=== PATIENT | female | born 1935 | race Caucasian/White ===

== ENCOUNTER 2016-08-09 20:04 | Inpatient (IN) | payer MEDICARE, MEDICAID ==
[~2016-08-09] VITALS: Ht 167.6 cm; Wt 80.3 kg
[~2016-08-09 20:04] MED LIST: ACET-168 PO; ACET650S15 PR; ALPR.25T PO; ALPR0.25 PO; ALPR0.254 PO; AMIO200T2 PO; AMLO10TA4 PO; APIX5TAB2 PO; ASP81CT PO; ASPI-587 PO; ASPI-892 PO; B 12; B12 IM; BISA5TAB8 PO; BUME0.5T3 PO; BYSTOLIC; CARB10DR OP; CARB10DR OU; CARV6.252 PO; CETI5TAB6 PO; CIPR500T78 PO; CLID1CAP12; CLN.1T; CNC1KV INJ; CYAN100053 IJ; D50KC; DCS100C PO; DILT120C53 PO; DIPH25TA82 PO; DLT120CCR PO; ENAL10TA PO; ENAL10TA75 PO; ENLP10T PO; ENLP5T PO; EYEL1KIT TP; FAMO1TAB21 PO; FEXO-104 PO; FEXO180T84 PO; FEXO60CA19; FEXO60TA PO; FLT05NA16 NSEACH; FLUT16SP22 NS; FURO20TA4 PO; HYDR-3583 PO; IRB150T; IRBE300T18 PO; IRBE300T9 PO; LATA2.5D5 OU; LBT200T; LEVO500T69 PO; LEVO50TA6 PO; LEVO75TA57 PO; LORA10CA PO; LVT.05T; LVT.05T PO; MAG30ORA2 PO; MAG355OR23 PO; MAGN-47 PO; MECL25TA56 PO; METO-270 PO; MNTL10T PO; NAPR220T76; NF-TYLARTH PO; OMEP20CA12 PO; OMEP40CA36 PO; ONDA-42 SL; ONDAN4ODT PO; PANT20TA PO; PANT40TA PO; PANT40TA3 PO; POLY17PO23 PO; POTA10TA14 PO; POTA10TA36 PO; PRD20T PO; PSYL1CAP3 PO; RIVA20TA PO; SCR1T1 PO; SIME125T9 PO; SIME80TA57 PO; SIME80TA6 PO; SODI104S3 NS; SUCR1TAB PO; SUCR1TAB23 PO; THM100T; VITAMIN B12; VITAMIN D; [UNRECOGNIZED DRUG - CODE] OD
[2016-08-09 20:28] LABS: BASOPHILS # (AUTO) 0.1 10^3/uL (0.0-0.1); BASOPHILS % (AUTO) 1 % (0-10); EOSINOPHILS # (AUTO) 0.3 10^3/uL (0.0-0.3); EOSINOPHILS % (AUTO) 5 % (0-10); LYMPHOCYTES # (AUTO) 1.5 X 10^3 (1.0-4.0); LYMPHOCYTES % (AUTO) 26 % (12-44); MEAN CORPUSCULAR HEMOGLOBIN 26 PG (25-34); MEAN CORPUSCULAR HGB CONC 33 G/DL (32-36); MEAN CORPUSCULAR VOLUME 79 FL (80-99); MONOCYTES # (AUTO) 0.5 X 10^3 (0.0-1.0); MONOCYTES % (AUTO) 9 % (0-12); NEUTROPHILS # (AUTO) 3.3 X 10^3 (1.8-7.8); NEUTROPHILS % (AUTO) 58 % (42-75); PLATELET COUNT 302 10^3/uL (130-400); RED BLOOD COUNT 5.05 10^6/uL (4.35-5.85); RED CELL DISTRIBUTION WIDTH 16.3 % (10.0-14.5); WHITE BLOOD COUNT 5.8 10^3/uL (4.3-11.0)
[2016-08-09 20:37] LABS: INR 3.9 (0.8-1.4); PROTHROMBIN TIME PATIENT 38.5 SEC (12.2-14.7)
[2016-08-09 20:46] LABS: ALBUMIN 4.2 G/DL (3.2-4.5); BILIRUBIN,TOTAL 0.6 MG/DL (0.1-1.0); CALCIUM 9.5 MG/DL (8.5-10.1); CREATININE SERUM 0.99 MG/DL (0.60-1.30); POTASSIUM 4.2 MMOL/L (3.6-5.0); TOTAL PROTEIN 7.8 G/DL (6.4-8.2)
[2016-08-09] MEDS ORDERED: NS IV 1000 ML 1,000 ML IV ONE (20:46)
--- NOTE | 2016-08-09 20:46 | ED GI ---
General Chief Complaint: Rect Problems Stated Complaint: RECTAL BLEEDING POSS DUE TO MEDS Nursing Triage Note: PT STATES HAS HAD RECTAL BLEEDING FOR APPROX 2 DAYS, DARK STOOLS YESTERDAY NORMAL TODAY AND RAJINDER BLEEDING TONIGHT Sepsis Screen: No Definite Risk Source of Information: Patient Exam Limitations: No Limitations History of Present Illness Time Seen By Provider: 20:28 Initial Comments 81-year-old female patient presents to the emergency department with complaints of generalized abdominal cramping with rectal bleeding over the last 2 days. Patient states she had coffee-ground stools earlier today followed by bright red blood per rectum. Patient does have a history of a GI bleed secondary to gastric ulcers. Patient is currently on Xarelto. Timing/Duration: 1-2 Days, Getting Worse (worse today), Intermittent Severity/Quality: Cramping Location: Generalized Abdomen Radiation: No Radiation Activities at Onset: None Modifying Factors: Worsens With Defecating, Worsens With Eating, Worsens With Palpation Allergies and Home Medications Allergies Coded Allergies: Penicillins (Verified Allergy, Unknown, 07/26/07) Shellfish (Verified Allergy, Unknown, 07/26/07) Sulfa (Sulfonamide Antibiotics) (Verified Allergy, Unknown, 07/26/07) azithromycin (Unverified Allergy, Unknown, ITCHING, 08/05/13) cephalexin (Verified Allergy, Unknown, 07/26/07) erythromycin base (Verified Allergy, Unknown, 07/26/07) furosemide (Verified Allergy, Unknown, 07/26/07) nitrofurantoin (Unverified Allergy, Unknown, ITCHING/"THICK TONGUE", ) tetracycline (Verified Allergy, Unknown, 07/26/07) Uncoded Allergies: TAPE (Allergy, Unknown, 07/26/07) Home Medications Acetaminophen 500 Mg Tablet, 500 MG PO BID PRN for PAIN, (Reported) Alprazolam 0.25 Mg Tablet, 0.25 MG PO TID PRN for ANXIETY, (Reported) Amiodarone HCl 200 Mg Tablet, 200 MG PO BID, #60 Prescribed by: MINDI LEE on 02/15/16 0839 Cyanocobalamin 1,000 Mcg/Ml Inj, 1,000 MCG INJ MONTHLY, (Reported) OF EACH MONTH Famotidine/Ca Carb/Mag Hydrox 1 Each Tab.chew, 1 TAB.CHEW PO DAILY PRN for HEARTBURN, (Reported) Fexofenadine Hcl 180 Mg Tablet, 180 MG PO DAILY, (Reported) Irbesartan 300 Mg Tablet, 300 MG PO DAILY, (Reported) Latanoprost 2.5 Ml Drops, 1 DROP OU HS, (Reported) Levothyroxine Sodium 50 Mcg Tablet, 50 MCG PO DAILY, (Reported) Mag Hydrox/Al Hydrox/Simeth 30 Ml Oral.susp, 1 TBS PO BID PRN for INDIGESTION, ( Reported) Metoprolol Succinate 25 Mg Tab.er.24h, 25 MG PO DAILY, #30 Prescribed by: MINDI LEE on 02/15/16 0839 Pantoprazole Sodium 40 Mg Tablet.dr, 40 MG PO DAILY PRN for HEARTBURN, (Reported ) Potassium Chloride 10 Meq Tab.er.prt, 10 MEQ PO DAILY, (Reported) Rivaroxaban 20 Mg Tablet, 20 MG PO DAILY@1700, #30 Prescribed by: MINDI LEE on 02/15/16 0839 Simethicone 80 Mg Tab.chew, 80 MG PO Q12H PRN for GAS, (Reported) Sodium Chloride 104 Ml [place], 1 SPRAY NS DAILY PRN for CONGESTION, (Reported) Review of Systems Constitutional: No chills, No diaphoresis, No dizziness, No fever, No malaise, No weakness EENTM: No Symptoms Reported Respiratory: No Symptoms Reported Cardiovascular: No Symptoms Reported Gastrointestinal: See HPI, Denies Abdomen Distended, Abdominal Pain, Blood Streaked Stools, Denies Constipated, Denies Diarrhea, Nausea, Poor Appetite, Denies Poor Fluid Intake, Rectal Bleeding, Denies Vomiting Genitourinary: No Symptoms Reported Musculoskeletal: no symptoms reported Skin: no symptoms reported Psychiatric/Neurological: No Symptoms Reported Hematologic/Lymphatic: See HPI, Other (history of upper GI bleed) All Other Systems Reviewed Negative Unless Noted: Yes (Negative excepted noted.) Past Jjijypm-Qwxpyi-Xyzqab Hx Patient Social History Alcohol Use: Denies Use Recreational Drug Use: No Smoking Status: Never a Smoker Recent Foreign Travel: No Contact w/Someone Who Travel: No Recent Infectious Disease Expo: No Recent Hopitalizations: No Immunizations Up To Date Tetanus Booster (TDap): Less than 5yrs PED Vaccines UTD: No Date of Pneumonia Vaccine: October 03, 2010 Date of Influenza Vaccine: Feb 08, 2012 Seasonal Allergies Seasonal Allergies: Yes Surgeries HX Surgeries: Yes Surgeries: Abdominal, Appendectomy, Gallbladder, Hysterectomy, Rectal, Thyroidectomy, Tonsillectomy Respiratory Hx Respiratory Disorders: No Cardiovascular Hx Cardiac Disorders: Yes (PVC'S, ENLARGED HEART) Cardiac Disorders: Atrial Fibrillation, Cardiomyopathy, Chronic Edema/Swelling , Coronary Artery Disease, Hypertension Neurological Hx Neurological Disorders: No 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 System Hx 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 Genitourinary Hx Genitourinary Disorders: Yes (DOUBLE COLLECTING SYSTEM) Genitourinary Disorders: UTI-Chronic Gastrointestinal Hx Gastrointestinal Disorders: Yes Gastrointestinal Disorders: Gastroesophageal Reflux, Gastrointestinal Bleed, Esophagitis, Ulcer Musculoskeletal Hx Musculoskeletal Disorders: Yes (OSTEOARTHRITIS, FX RIGHT LOWER LEG, DISLOCATED RIGHT SHOULDER) Musculoskeletal Disorders: Osteoporosis, Arthritis, Fractures Endocrine Hx Endocrine Disorders: Yes (THYROIDECTOMY; "PREDIABETIC" PER PT ON 02/13/16 -- NO MEDICATIONS) Endocrine Disorders: Hypothyroidsim, Diabetes, Non-Insulin dep HEENT HX ENT Disorders: Yes HEENT Disorders: Glaucoma Hearing Impairment: Hard of Hearing Cancer Hx Cancer: No Psychosocial Hx Psychiatric Problems: Yes Behavioral Health Disorders: Anxiety, Depression Integumentary HX Skin/Integumentary Disorder: No Blood Transfusions Hx Blood Disorders: Yes (ANEMIA) Adverse Reaction to a Blood Tr: No Reviewed Nursing Assessment Reviewed/Agree w Nursing PMH: Yes Family Medical History Significant Family History: No Pertinent Family Hx Family Medial History: Family history: Hypertension 03 FATHER, Onset:40's - 50 09 BROTHER, Onset:40's - 50 History of drug abuse 03 FATHER, Onset:20's - 25 Stroke 03 FATHER, Onset:60 years & older Physical Exam Vital Signs VS - Last 72 Hours, by Label 08/09/16 20:10 Temp 98.6 Pulse 73 Resp 18 B/P (MAP) 165/91 Pulse Ox 98 Capillary Refill : Less Than 3 Seconds General Appearance: WD/WN, no apparent distress HEENT: PERRL/EOMI, pharynx normal Neck: supple, normal inspection Respiratory: lungs clear, normal breath sounds, no respiratory distress Cardiovascular: normal peripheral pulses, regular rate, rhythm, no murmur Gastrointestinal: normal bowel sounds, non tender (unable to reproduce tenderness), soft, no organomegaly, No distended, other (wipes noted in the commode to have stool with dark blood smeared on them.) Extremities: no pedal edema, normal capillary refill Back: normal inspection, no CVA tenderness Neurologic/Psychiatric: alert, normal mood/affect, oriented x 3 Skin: normal color, warm/dry Progress/Results/Core Measures Results/Orders Lab Results Laboratory Tests Test 08/09/16 20:20 Range/Units White Blood Count 5.8 4.3-11.0 10^3/uL Red Blood Count 5.05 4.35-5.85 10^6/uL Hemoglobin 13.0 11.5-16.0 G/DL Hematocrit 40 35-52 % Mean Corpuscular Volume 79 L 80-99 FL Mean Corpuscular Hemoglobin 26 25-34 PG Mean Corpuscular Hemoglobin Concent 33 32-36 G/DL Red Cell Distribution Width 16.3 H 10.0-14.5 % Platelet Count 302 130-400 10^3/uL Mean Platelet Volume 10.0 7.4-10.4 FL Neutrophils (%) (Auto) 58 42-75 % Lymphocytes (%) (Auto) 26 12-44 % Monocytes (%) (Auto) 9 0-12 % Eosinophils (%) (Auto) 5 0-10 % Basophils (%) (Auto) 1 0-10 % Neutrophils # (Auto) 3.3 1.8-7.8 X 10^3 Lymphocytes # (Auto) 1.5 1.0-4.0 X 10^3 Monocytes # (Auto) 0.5 0.0-1.0 X 10^3 Eosinophils # (Auto) 0.3 0.0-0.3 10^3/uL Basophils # (Auto) 0.1 0.0-0.1 10^3/uL Prothrombin Time 38.5 H 12.2-14.7 SEC INR Comment 3.9 H 0.8-1.4 Activated Partial Thromboplast Time 54 H 24-35 SEC Sodium Level 142 135-145 MMOL/L Potassium Level 4.2 3.6-5.0 MMOL/L Chloride Level 108 H 98-107 MMOL/L Carbon Dioxide Level 23 21-32 MMOL/L Anion Gap 11 5-14 MMOL/L Blood Urea Nitrogen 19 H 7-18 MG/DL Creatinine 0.99 0.60-1.30 MG/DL Estimat Glomerular Filtration Rate 54 BUN/Creatinine Ratio 19 Glucose Level 112 H 70-105 MG/DL Calcium Level 9.5 8.5-10.1 MG/DL Total Bilirubin 0.6 0.1-1.0 MG/DL Aspartate Amino Transf (AST/SGOT) 18 5-34 U/L Alanine Aminotransferase (ALT/SGPT) 15 0-55 U/L Alkaline Phosphatase 128 40-136 U/L Total Protein 7.8 6.4-8.2 G/DL Albumin 4.2 3.2-4.5 G/DL My Orders Orders - MARCO ANTONIO MCKINNON Ondansetron Injection (Zofran Injectio (08/09/16 21:00) Ns Iv 1000 Ml (Sodium Chloride 0.9%) (08/09/16 20:46) Pantoprazole Injection (Protonix Injecti (08/09/16 21:00) Red Cells Leukocytes Reduced (08/09/16 21:52) Type And Screen (08/09/16 21:52) Medications Given in ED Current Medications Medications Dose Ordered Sig/Cora Route Start Time Stop Time Status Last Admin Dose Admin Ondansetron HCl 4 mg ONCE ONCE IVP 08/09/16 21:00 08/09/16 21:01 DC 08/09/16 20:53 4 MG Pantoprazole 80 mg ONCE ONCE IV 08/09/16 21:00 08/09/16 21:01 DC 08/09/16 20:53 80 MG Sodium Chloride 1,000 ml @ 0 mls/hr Q0M ONCE IV 08/09/16 20:46 08/09/16 20:48 DC 08/09/16 20:53 1,000 MLS/HR Vital Signs/I&O Vital Sign - Last 12Hours 08/09/16 20:10 Temp 98.6 Pulse 73 Resp 18 B/P (MAP) 165/91 Pulse Ox 98 Intake and Output 08/10/16 00:00 Intake Total 1000 ml Balance 1000 ml Blood Pressure Mean: 115 Departure Communication Time/Spoke to Admitting Phy: 21:[address] Green accepts patient to his internal medicine service for IV fluids, IV Protonix, and surgical consult. Time/Spoke to Consulting Physi: 21:50 Communication/Consulting Dr. Martin requests patient be admitted to internal medicine with surgical consult for upper and lower endoscopy. Progress Notes 5 upon entering the room patient is noted to have had a large bloody bowel movement. Laboratory findings were discussed with the patient. I discussed plan for contacting Dr. Green and Dr. Martin for admission orders. Patient voices understanding and agrees with the treatment plan. Patient case discussed with Dr. Laguna, he agrees with the plan of care. Impression Impression: Primary Impression: Lower GI hemorrhage Additional Impressions: Abdominal cramping, generalized History of stomach ulcers Disposition: ADMITTED INPATIENT Condition: Stable Decision to Admit Reason: Admit from ER (General) Decision to Admit/Date: Aug 09, 2016 Time/Decision to Admit Time: 21:50 Departure-Patient Inst. Referrals: ESTHER DANIELLE DO (PCP/Family) Primary Care Physician MARCO ANTONIO MCKINNON Aug 09, 2016 20:46
[2016-08-09] MEDS ORDERED: ONDANSETRON 4 MG/2 ML (SDV) Z0FRAN IVP ONE (21:00)
[2016-08-09] MEDS ORDERED: PANTOPRAZOLE 40 MG/10 ML (PROTONIX) VIAL IV ONE (21:00)
[2016-08-09 23:00] VITALS: BP_SYST 150; BP_SYST 162; BP_DIAS 69; BP_DIAS 73
[2016-08-09] MEDS ORDERED: OCTREOTIDE DRIP KIT ONE (23:01)
[2016-08-09] MEDS ORDERED: NS IV 1000 ML 1,000 ML ONE (23:02)
[2016-08-09] MEDS ORDERED: NS (IVPB) 100 ML ONE (23:02)
[2016-08-09] MEDS: NS IV 1000 ML 1,000 ML IV SCH (23:10)
[2016-08-09] MEDS: OCTREOTIDE INJECTION 500 MCG in NS (IVPB) 99 ML IV SCH (23:25)
[2016-08-10] VITALS (22 sets, daily range): BP systolic 136–177; BP diastolic 66–89
[2016-08-10] MEDS ORDERED: ONDANSETRON 4 MG/2 ML (SDV) Z0FRAN ONE (00:26)
[2016-08-10] MEDS: ONDANSETRON 4 MG/2 ML (SDV) Z0FRAN IVP PRN ×3 (00:33→14:00)
[2016-08-10] MEDS ORDERED: fentaNYL INJECTION 100 MCG/2 ML AMP IV PRN (03:45)
[2016-08-10 04:28] LABS: BASOPHILS % (AUTO) 1 % (0-10); EOSINOPHILS # (AUTO) 0.1 10^3/uL (0.0-0.3); EOSINOPHILS % (AUTO) 2 % (0-10); LYMPHOCYTES # (AUTO) 0.9 X 10^3 (1.0-4.0); LYMPHOCYTES % (AUTO) 14 % (12-44); MEAN CORPUSCULAR HEMOGLOBIN 26 PG (25-34); MEAN CORPUSCULAR HGB CONC 32 G/DL (32-36); MEAN CORPUSCULAR VOLUME 81 FL (80-99); MEAN PLATELET VOLUME 10.2 FL (7.4-10.4); MONOCYTES # (AUTO) 0.4 X 10^3 (0.0-1.0); MONOCYTES % (AUTO) 6 % (0-12); NEUTROPHILS # (AUTO) 5.3 X 10^3 (1.8-7.8); NEUTROPHILS % (AUTO) 77 % (42-75); PLATELET COUNT 238 10^3/uL (130-400); RED BLOOD COUNT 4.32 10^6/uL (4.35-5.85); RED CELL DISTRIBUTION WIDTH 16.2 % (10.0-14.5); WHITE BLOOD COUNT 6.9 10^3/uL (4.3-11.0)
[2016-08-10 04:34] LABS: INR 2.7 (0.8-1.4); PROTHROMBIN TIME PATIENT 28.4 SEC (12.2-14.7)
[2016-08-10 04:56] LABS: ALANINE AMINOTRANSFERASE 13 U/L (0-55); ALBUMIN 3.5 G/DL (3.2-4.5); ANION GAP 9 MMOL/L (5-14); ASPARTATE AMINO TRANSFERASE 15 U/L (5-34); BILIRUBIN,TOTAL 0.7 MG/DL (0.1-1.0); BLOOD UREA NITROGEN 16 MG/DL (7-18); BUN/CREATININE RATIO 20; CALCIUM 8.3 MG/DL (8.5-10.1); CARBON DIOXIDE 21 MMOL/L (21-32); CHLORIDE 110 MMOL/L (98-107); CREATININE SERUM 0.82 MG/DL (0.60-1.30); GFR ESTIMATED > 60; GLUCOSE 157 MG/DL (70-105); PHOSPHORUS 3.1 MG/DL (2.3-4.7); POTASSIUM 4.3 MMOL/L (3.6-5.0); SODIUM 140 MMOL/L (135-145); TOTAL PROTEIN 6.4 G/DL (6.4-8.2)
[2016-08-10] MEDS: NS IV 1000 ML 1,000 ML IV SCH ×4 (05:55→20:34)
[2016-08-10] MEDS ORDERED: CATHETER FLUSH 10 ML SYR IV PRN (06:30)
--- NOTE | 2016-08-10 06:47 | Pulmonary Consultation ---
History of Present Illness History of Present Illness Date of Consultation 08/10/16 06:41 Date of Admission History of Present Illness 81yo with hx of Afib on Xarelto presented secondary to coffee ground emesis and BRPR. Does complain of generalized abdominal cramping. Onset was 2 days prior to admission. Patient does have a history of a GI bleed secondary to gastric ulcers. I am consulted for ICU management. Surgery is consulted. Allergies and Home Medications Allergies Coded Allergies: Penicillins (Verified Allergy, Unknown, 07/26/07) Shellfish (Verified Allergy, Unknown, 07/26/07) Sulfa (Sulfonamide Antibiotics) (Verified Allergy, Unknown, 07/26/07) azithromycin (Unverified Allergy, Unknown, ITCHING, 08/05/13) cephalexin (Verified Allergy, Unknown, 07/26/07) erythromycin base (Verified Allergy, Unknown, 07/26/07) furosemide (Verified Allergy, Unknown, 07/26/07) nitrofurantoin (Unverified Allergy, Unknown, ITCHING/"THICK TONGUE", ) tetracycline (Verified Allergy, Unknown, 07/26/07) Uncoded Allergies: TAPE (Allergy, Unknown, 07/26/07) Home Medications Acetaminophen 500 Mg Tablet, 500 MG PO BID PRN for PAIN, (Reported) Alprazolam 0.25 Mg Tablet, 0.25 MG PO TID PRN for ANXIETY, (Reported) Amiodarone HCl 200 Mg Tablet, 200 MG PO BID, #60 Prescribed by: MINDI LEE on 02/15/16 0839 Cyanocobalamin 1,000 Mcg/Ml Inj, 1,000 MCG INJ MONTHLY, (Reported) OF EACH MONTH Famotidine/Ca Carb/Mag Hydrox 1 Each Tab.chew, 1 TAB.CHEW PO DAILY PRN for HEARTBURN, (Reported) Fexofenadine Hcl 180 Mg Tablet, 180 MG PO DAILY, (Reported) Irbesartan 300 Mg Tablet, 300 MG PO DAILY, (Reported) Latanoprost 2.5 Ml Drops, 1 DROP OU HS, (Reported) Levothyroxine Sodium 50 Mcg Tablet, 50 MCG PO DAILY, (Reported) Mag Hydrox/Al Hydrox/Simeth 30 Ml Oral.susp, 1 TBS PO BID PRN for INDIGESTION, ( Reported) Metoprolol Succinate 25 Mg Tab.er.24h, 25 MG PO DAILY, #30 Prescribed by: MINDI LEE on 02/15/16 0839 Pantoprazole Sodium 40 Mg Tablet.dr, 40 MG PO DAILY PRN for HEARTBURN, (Reported ) Potassium Chloride 10 Meq Tab.er.prt, 10 MEQ PO DAILY, (Reported) Rivaroxaban 20 Mg Tablet, 20 MG PO DAILY@1700, #30 Prescribed by: MINDI LEE on 02/15/16 0839 Simethicone 80 Mg Tab.chew, 80 MG PO Q12H PRN for GAS, (Reported) Sodium Chloride 104 Ml [place], 1 SPRAY NS DAILY PRN for CONGESTION, (Reported) Past Mdxccoy-Eocjbf-Tlmyrq Hx Patient Social History Alcohol Use: Denies Use Recreational Drug Use: No Smoking Status: Never a Smoker Recent Foreign Travel: No Contact w/Someone Who Travel: No Recent Infectious Disease Expo: No Recent Hopitalizations: No Physical Abuse Screen: No Sexual Abuse: No Immunizations Up To Date Tetanus Booster (TDap): Less than 5yrs PED Vaccines UTD: No Date of Pneumonia Vaccine: October 03, 2010 Date of Influenza Vaccine: Feb 08, 2012 Seasonal Allergies Seasonal Allergies: Yes Surgeries HX Surgeries: Yes Surgeries: Abdominal, Appendectomy, Gallbladder, Hysterectomy, Rectal, Thyroidectomy, Tonsillectomy Respiratory Hx Respiratory Disorders: No Cardiovascular Hx Cardiac Disorders: Yes (PVC'S, ENLARGED HEART) Cardiac Disorders: Atrial Fibrillation, Cardiomyopathy, Chronic Edema/Swelling , Coronary Artery Disease, Hypertension Neurological Hx Neurological Disorders: No 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 System : No 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 Genitourinary Hx Genitourinary Disorders: Yes (DOUBLE COLLECTING SYSTEM) Genitourinary Disorders: UTI-Chronic Gastrointestinal Hx Gastrointestinal Disorders: Yes Gastrointestinal Disorders: Gastroesophageal Reflux, Gastrointestinal Bleed, Esophagitis, Ulcer Musculoskeletal Hx Musculoskeletal Disorders: Yes (OSTEOARTHRITIS, FX RIGHT LOWER LEG, DISLOCATED RIGHT SHOULDER) Musculoskeletal Disorders: Osteoporosis, Arthritis, Fractures Endocrine Hx Endocrine Disorders: Yes (THYROIDECTOMY; "PREDIABETIC" PER PT ON 02/13/16 -- NO MEDICATIONS) Endocrine Disorders: Hypothyroidsim, Diabetes, Non-Insulin dep HEENT HX ENT Disorders: Yes HEENT Disorders: Glaucoma Hearing Impairment: Hard of Hearing Cancer Hx Cancer: No Psychosocial Hx Psychiatric Problems: Yes Behavioral Health Disorders: Anxiety, Depression Integumentary HX Skin/Integumentary Disorder: No Blood Transfusions Hx Blood Disorders: Yes (ANEMIA) Adverse Reaction to a Blood Tr: No Reviewed Nursing Assessment Reviewed/Agree w Nursing PMH: Yes Family Medical History Significant Family History: No Pertinent Family Hx Family Medial History: Family history: Hypertension 03 FATHER, Onset:40's - 50 09 BROTHER, Onset:40's - 50 History of drug abuse 03 FATHER, Onset:20's - 25 Stroke 03 FATHER, Onset:60 years & older Exam Exam Vital Signs Date Time Temp Pulse Resp B/P (MAP) Pulse Ox O2 Delivery O2 Flow Rate FiO2 08/10/16 06:00 50 13 153/74 92 Room Air 08/10/16 05:00 63 20 169/89 91 Room Air 08/10/16 04:00 97.9 54 15 152/79 91 Room Air 08/10/16 04:00 94 08/10/16 03:00 51 12 156/76 90 Room Air 08/10/16 02:00 77 14 172/89 91 Room Air 08/10/16 01:02 62 08/10/16 01:00 54 10 151/82 94 Room Air 08/10/16 00:00 98.2 58 13 177/85 97 Room Air 08/10/16 00:00 94 08/09/16 23:00 98.4 61 12 150/73 96 Room Air 08/09/16 23:00 60 13 162/69 97 Room Air 08/09/16 22:50 96 08/09/16 22:34 98.6 73 18 98 08/09/16 20:10 98.6 73 18 165/91 98 I & O 08/10/16 07:00 Intake Total 1995 ml Output Total 350 ml Balance 1645 ml Capillary Refill: Less Than 3 Seconds Gastrointestinal: normal bowel sounds, non tender (unable to reproduce tenderness), soft, no organomegaly, No distended, other (wipes noted in the commode to have stool with dark blood smeared on them.) Results Lab Laboratory Tests 08/09/16 20:20 08/10/16 00:18 08/10/16 04:12 Assessment/Plan Assessment/Plan -Acute GIB -monitor H&H -Surgery following -Hold Xarelto -Protonix BID Hx of Afib Clinical Quality Measures DVT/VTE Risk/Contraindication: Risk Factor Score Per Nursin RFS Level Per Nursing on Admit: 2=Moderate KIMBERLYN PULIDO DO Aug 10, 2016 06:46
[2016-08-10] MEDS: PANTOPRAZOLE 40 MG/10 ML (PROTONIX) VIAL IV SCH ×2 (08:00→20:35)
--- NOTE | 2016-08-10 08:37 | Diagnostic Imaging Report ---
INDICATION: Gastrointestinal bleed. TECHNIQUE: Single-view chest 4:53 AM. CORRELATION STUDY: 02/13/2016. FINDINGS: Limited depth of inspiration. Given this, heart size enlarged. Mediastinum prominent. Vasculature within normal limits. Lungs overall relatively clear. Stomach is rather significantly distended with gas. Electronic device over the cardiac apex. IMPRESSION: Cardiac enlargement without evidence for overt failure. Dictated by: Dictated on workstation # [id number]
[2016-08-10] MEDS ORDERED: FAMOTIDINE 20MG/2ML IV (PEPCID) IV SCH (09:00)
[2016-08-10] MEDS ORDERED: FAMOTIDINE 20MG/2ML IV (PEPCID) IV PRN (09:00)
--- NOTE | 2016-08-10 11:40 | History & Physical-Hospitalist ---
HPI History of Present Illness: HPI/Chief Complaint CC: GI bleed HPI: This is 81[address] pt of [address] Soni with past hx of gastric ulcers and on anticoagulation for AF with hx of GI bleed who presents to the ER with abdominal and coffee ground emesis and blood per rectum. She has been admitted, preparing for endoscopy and has not required transfusion thus far. Hgb upon admission was 13 now 11. Patient Interview: Pt states she remember Dr. Kitchen from her last stay at [facility] that was caused by AF at that time. Pt states she has a lot of pressure in her stomach area. Pt states she wants Dr. Martin to scope her. Pt states she lives in [facility] and she has a helper that cleans and prepares meals. Pt was told her blood work and labs look good currently. Pt was told her blood thinner will be held. Pt denies being in pain and declines pain meds. Scribed by Rome Gómez under the direct supervision of Dr. Kitchen. Source: patient Exam Limitations: no limitations Date Seen 08/10/16 Attending Physician Martinez Soni DO PCP Martinez Soni DO Referring Physician Date of Admission Aug 09, 2016 at 22:05 Home Medications & Allergies Home Medications Reviewed patient Home Medication Reconciliation Form Allergies Allergies Coded Allergies Penicillins (Verified Allergy, Unknown, 07/26/07) Shellfish (Verified Allergy, Unknown, 07/26/07) Sulfa (Sulfonamide Antibiotics) (Verified Allergy, Unknown, 07/26/07) azithromycin (Unverified Allergy, Unknown, ITCHING, 08/05/13) cephalexin (Verified Allergy, Unknown, 07/26/07) erythromycin base (Verified Allergy, Unknown, 07/26/07) furosemide (Verified Allergy, Unknown, 07/26/07) nitrofurantoin (Unverified Allergy, Unknown, ITCHING/"THICK TONGUE", 08/05/13) tetracycline (Verified Allergy, Unknown, 07/26/07) Uncoded Allergies TAPE ( Allergy, Unknown, 07/26/07) Past Vpkmcyh-Sdhxjy-Lcboas Hx Patient Social History Marrital Status: single Employed/Student: retired Alcohol Use: Denies Use Recreational Drug Use: No Smoking Status: Never a Smoker Physical Abuse Screen: No Sexual Abuse: No Recent Foreign Travel: No Contact w/other who traveled: No Recent Hopitalizations: No Recent Infectious Disease Expo: No Immunizations Up To Date Tetanus Booster (TDap): Less than 5yrs Date of Pneumonia Vaccine: October 03, 2010 Date of Influenza Vaccine: Feb 08, 2012 Seasonal Allergies Seasonal Allergies: Yes Surgeries HX Surgeries: Yes Surgeries: Abdominal, Appendectomy, Gallbladder, Hysterectomy, Rectal, Thyroidectomy, Tonsillectomy Respiratory Hx Respiratory Disorders: No Cardiovascular Hx Cardiovascular Disorders: Yes (PVC'S, ENLARGED HEART) Cardiac Disorders: Atrial Fibrillation, Cardiomyopathy, Chronic Edema/Swelling , Coronary Artery Disease, Hypertension Neurological Hx Neurological Disorders: No 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 System : No Hx 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 Disorders: No Genitourinary Hx Genitourinary Disorders: Yes (DOUBLE COLLECTING SYSTEM) Genitourinary Disorders: UTI-Chronic Gastrointestinal Hx Gastrointestinal Disorders: Yes Gastrointestinal Disorders: Gastroesophageal Reflux, Gastrointestinal Bleed, Esophagitis, Ulcer Musculoskeletal Hx Musculoskeletal Disorders: Yes (OSTEOARTHRITIS, FX RIGHT LOWER LEG, DISLOCATED RIGHT SHOULDER) Musculoskeletal Disorders: Osteoporosis, Arthritis, Fractures Endocrine Hx Endocrine Disorders: Yes (THYROIDECTOMY; "PREDIABETIC" PER PT ON 02/13/16 -- NO MEDICATIONS) Endocrine Disorders: Hypothyroidsim, Diabetes, Non-Insulin dep HEENT HX ENT Disorders: Yes HEENT Disorders: Glaucoma Hearing Impairment: Hard of Hearing Cancer Hx Cancer: No Psychosocial Hx Psychiatric Problems: Yes Behavioral Health Disorders: Anxiety, Depression Integumentary HX Skin/Integumentary Disorder: No Blood Transfusions Hx Blood Disorders: Yes (ANEMIA) Adverse Reaction to a Blood Tr: No Reviewed Nursing Assessment Reviewed/Agree w Nursing PMH: Yes Family Medical History Significant Family History: No Pertinent Family Hx Family Hx: Family history: Hypertension 03 FATHER, Onset:40's - 50 09 BROTHER, Onset:40's - 50 History of drug abuse 03 FATHER, Onset:20's - 25 Stroke 03 FATHER, Onset:60 years & older Review of Systems Constitutional: see HPI EENTM: no symptoms reported Respiratory: no symptoms reported Cardiovascular: no symptoms reported Gastrointestinal: hematemesis, melena, nausea, vomiting Genitourinary: no symptoms reported Musculoskeletal: back pain Skin: no symptoms reported Psychiatric/Neurological: No Symptoms Reported All Other Systems Reviewed Negative Unless Noted: Yes Physical Exam Physical Exam Vital Signs Vital Sign - Last 12Hours 08/09/16 20:10 Temp 98.6 Pulse 73 Resp 18 B/P (MAP) 165/91 Pulse Ox 98 Capillary Refill : Less Than 3 Seconds General Appearance: No Apparent Distress, WD/WN, Chronically ill Eyes: Bilateral Eye Normal Inspection, Bilateral Eye PERRL HEENT: PERRL/EOMI, Normal ENT Inspection, Pharynx Normal Neck: Full Range of Motion, Normal Inspection, Non Tender, Supple, Carotid Bruit Respiratory: Chest Non Tender, Lungs Clear, Normal Breath Sounds, No Accessory Muscle Use, No Respiratory Distress Cardiovascular: No Edema, No Gallop, No JVD, No Murmur, Normal Peripheral Pulses, Irregularly Irregular Gastrointestinal: Normal Bowel Sounds, No Organomegaly, No Pulsatile Mass, Non Tender, Soft Back: Normal Inspection, No CVA Tenderness, No Vertebral Tenderness Extremity: Normal Capillary Refill, Normal Inspection, Normal Range of Motion, Non Tender, No Calf Tenderness, No Pedal Edema Neurologic/Psychiatric: Alert, Oriented x3, No Motor/Sensory Deficits, Normal Mood/Affect Skin: Normal Color, Warm/Dry Lymphatic: No Adenopathy Results Results/Procedures Lab Laboratory Tests 08/09/16 20:20 08/10/16 00:18 08/10/16 04:12 Assessment/Plan Admission Diagnosis Assessment: GI bleed on anticoagulation Chronically to fibrillation CAD Hypertension Anemia due to acute blood loss from GI bleed Assessment and Plan Plan: Endoscopy planned per surgery Hold anticoagulation Monitor hemoglobin Monitor closely Clinical Quality Measures DVT/VTE Risk/Contraindication: Risk Factor Score Per Nursin RFS Level Per Nursing on Admit: 2=Moderate ALMA KITCHEN DO Aug 10, 2016 11:40
[2016-08-10] MEDS: OCTREOTIDE INJECTION 500 MCG in NS (IVPB) 99 ML IV SCH ×2 (12:39→20:34)
[2016-08-10] MEDS: MAGNESIUM CITRATE 300 ML BTL PO SCH ×2 (13:22→20:35)
[2016-08-10] MEDS: CATHETER FLUSH 10 ML SYR IV SCH ×2 (13:22→20:35)
[2016-08-10] MEDS ORDERED: METO5TAB2 PO (14:03)
[2016-08-10] MEDS ORDERED: RIVA20TA PO (14:03)
[2016-08-10] MEDS ORDERED: AMIO100T4 PO (14:03)
[2016-08-10] MEDS ORDERED: MONT10TA24 PO (14:03)
--- NOTE | 2016-08-10 16:55 | Consultation ---
History of Present Illness History of Present Illness Patient Consulted On(jorge luis/time) 08/10/16 16:50 Date of Admission 08/09/16 History of Present Illness This is a 81 year old female who presented to the ER last night with complaints of bright red blood in stool. Patient reports that on Wednesday (08/07) she noticed that she had some dark coffee ground blood in her stool. She reports that the next day she was having normal BMs with no blood. She reports that yesterday she began having multiple episodes of bright red blood in her stool as well as crampy abdominal pain. She reports that she does have a history of ulcers in the past as well as GERD. She reports that she has had a alex fundoplication in the past and currently takes pepcid. She denied any vomiting as well as no regurgitation. She reports that she is on Xarelto and has been under a significant amount of stress lately. Allergies and Home Medications Allergies Coded Allergies: Penicillins (Verified Allergy, Unknown, 07/26/07) Shellfish (Verified Allergy, Unknown, 07/26/07) Sulfa (Sulfonamide Antibiotics) (Verified Allergy, Unknown, 07/26/07) azithromycin (Unverified Allergy, Unknown, ITCHING, 08/05/13) cephalexin (Verified Allergy, Unknown, 07/26/07) erythromycin base (Verified Allergy, Unknown, 07/26/07) furosemide (Verified Allergy, Unknown, 07/26/07) nitrofurantoin (Unverified Allergy, Unknown, ITCHING/"THICK TONGUE", ) tetracycline (Verified Allergy, Unknown, 07/26/07) Uncoded Allergies: TAPE (Allergy, Unknown, 07/26/07) Home Medications Acetaminophen 500 Mg Tablet, 500 MG PO BID PRN for PAIN, (Reported) Alprazolam 0.25 Mg Tablet, 0.25 MG PO Q8H PRN for ANXIETY, (Reported) Amiodarone HCl 100 Mg Tablet, 100 MG PO DAILY, (Reported) LAST FILLED 05/30/16 #30 Cyanocobalamin 1,000 Mcg/Ml Inj, 1,000 MCG INJ MONTHLY, (Reported) 20TH OF EACH MONTH Famotidine/Ca Carb/Mag Hydrox 1 Each Tab.chew, 1 TAB.CHEW PO DAILY PRN for HEARTBURN, (Reported) Fexofenadine Hcl 180 Mg Tablet, 180 MG PO DAILY, (Reported) Irbesartan 300 Mg Tablet, 300 MG PO DAILY, (Reported) Latanoprost 2.5 Ml Drops, 1 DROP OU HS, (Reported) Levothyroxine Sodium 50 Mcg Tablet, 50 MCG PO DAILY, (Reported) Mag Hydrox/Al Hydrox/Simeth 30 Ml Oral.susp, 1 TBS PO BID PRN for INDIGESTION, ( Reported) Metoclopramide HCl 5 Mg Tablet, 5 MG PO TIDWM, (Reported) Montelukast Sodium 10 Mg Tablet, 10 MG PO HS, (Reported) Potassium Chloride 10 Meq Tab.er.prt, 10 MEQ PO DAILY, (Reported) Rivaroxaban 20 Mg Tablet, 20 MG PO DAILY, (Reported) Past [id number] Hx Patient Social History Alcohol Use: Denies Use Recreational Drug Use: No Smoking Status: Never a Smoker Recent Foreign Travel: No Contact w/Someone Who Travel: No Recent Infectious Disease Expo: No Recent Hopitalizations: No Physical Abuse Screen: No Sexual Abuse: No Immunizations Up To Date Tetanus Booster (TDap): Less than 5yrs PED Vaccines UTD: No Date of Pneumonia Vaccine: October 03, 2010 Date of Influenza Vaccine: Feb 08, 2012 Seasonal Allergies Seasonal Allergies: Yes Surgeries HX Surgeries: Yes Surgeries: Abdominal, Appendectomy, Gallbladder, Hysterectomy, Rectal, Thyroidectomy, Tonsillectomy Respiratory Hx Respiratory Disorders: No Cardiovascular Hx Cardiac Disorders: Yes (PVC'S, ENLARGED HEART) Cardiac Disorders: Atrial Fibrillation, Cardiomyopathy, Chronic Edema/Swelling , Coronary Artery Disease, Hypertension Neurological Hx Neurological Disorders: No 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 System : No Hx 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 Disorders: No FAMILY SERVICE WORKER History: Hysterectomy Genitourinary Hx Genitourinary Disorders: Yes (DOUBLE COLLECTING SYSTEM) Genitourinary Disorders: UTI-Chronic Gastrointestinal Hx Gastrointestinal Disorders: Yes Gastrointestinal Disorders: Gastroesophageal Reflux, Gastrointestinal Bleed, Esophagitis, Ulcer Musculoskeletal Hx Musculoskeletal Disorders: Yes (OSTEOARTHRITIS, FX RIGHT LOWER LEG, DISLOCATED RIGHT SHOULDER) Musculoskeletal Disorders: Osteoporosis, Arthritis, Fractures Endocrine Hx Endocrine Disorders: Yes (THYROIDECTOMY; "PREDIABETIC" PER PT ON 02/13/16 -- NO MEDICATIONS) Endocrine Disorders: Hypothyroidsim, Diabetes, Non-Insulin dep HEENT HX ENT Disorders: Yes HEENT Disorders: Glaucoma Hearing Impairment: Hard of Hearing Cancer Hx Cancer: No Psychosocial Hx Psychiatric Problems: Yes Behavioral Health Disorders: Anxiety, Depression Integumentary HX Skin/Integumentary Disorder: No Blood Transfusions Hx Blood Disorders: Yes (ANEMIA) Adverse Reaction to a Blood Tr: No Reviewed Nursing Assessment Reviewed/Agree w Nursing PMH: Yes Family Medical History Significant Family History: No Pertinent Family Hx Family Medial History: Family history: Hypertension 03 FATHER, Onset:40's - 50 09 BROTHER, Onset:40's - 50 History of drug abuse 03 FATHER, Onset:20's - 25 Stroke 03 FATHER, Onset:60 years & older Review of Systems-General Constitutional: No chills, No fever EENTM: no symptoms reported Respiratory: no symptoms reported Cardiovascular: no symptoms reported Gastrointestinal: abdominal pain (Crampy), heartburn, melena, nausea Genitourinary: no symptoms reported Musculoskeletal: no symptoms reported Skin: no symptoms reported Psychiatric/Neurological: See HPI Physical Exam-General Problems Physical Exam Vital Signs Vital Sign - Last 12Hours 08/09/16 20:10 Temp 98.6 Pulse 73 Resp 18 B/P (MAP) 165/91 Pulse Ox 98 Capillary Refill : Less Than 3 Seconds General Appearance: WD/WN, no apparent distress HEENT: PERRL/EOMI Neck: non-tender, full range of motion, supple, normal inspection Respiratory: lungs clear, normal breath sounds, no respiratory distress, no accessory muscle use Cardiovascular: no edema, no gallop, no JVD, no murmur, irregularly irregular Gastrointestinal: normal bowel sounds, non tender, soft Back: normal inspection, no CVA tenderness, no vertebral tenderness Extremities: normal range of motion, non-tender, normal inspection, no pedal edema, no calf tenderness, normal capillary refill Neurologic/Psychiatric: alert, normal mood/affect, oriented x 3 Skin: normal color, warm/dry Assessment/Plan Assessment/Plan Admission Diagnosis/Plan A 81 year old female with GI bleed. Monitor Hgb. Clear liquid diet. PPI prophylaxis with protonix hold anticoagulation Pain and nausea medication Bowel prep and schedule for EGD and colonoscopy tomorrow. Clinical Quality Measures DVT/VTE Risk/Contraindication: Risk Factor Score Per Nursin RFS Level Per Nursing on Admit: 2=Moderate Copy Copies To 1: ALAINA IRVING MD, DUSTIN L APRN Aug 10, 2016 16:55
[2016-08-10] MEDS ORDERED: PROMETHAZINE INJ 25 MG/ML (PHENERGAN) AMP IVP PRN (17:15)
[2016-08-10] MEDS ORDERED: ALPRAZolam 0.25 MG (XANAX) TAB ONE (23:32)
[2016-08-10] MEDS ORDERED: ALPRAZolam 0.25 MG (XANAX) TAB PO PRN (23:45)
[2016-08-11] VITALS (15 sets, daily range): BP systolic 133–170; BP diastolic 57–81
[2016-08-11] MEDS: NS IV 1000 ML 1,000 ML IV SCH ×4 (01:55→19:42)
[2016-08-11 05:43] LABS: BASOPHILS # (AUTO) 0.1 10^3/uL (0.0-0.1); BASOPHILS % (AUTO) 2 % (0-10); EOSINOPHILS # (AUTO) 0.3 10^3/uL (0.0-0.3); EOSINOPHILS % (AUTO) 5 % (0-10); LYMPHOCYTES # (AUTO) 1.3 X 10^3 (1.0-4.0); LYMPHOCYTES % (AUTO) 24 % (12-44); MEAN CORPUSCULAR HEMOGLOBIN 26 PG (25-34); MEAN CORPUSCULAR HGB CONC 33 G/DL (32-36); MEAN CORPUSCULAR VOLUME 81 FL (80-99); MEAN PLATELET VOLUME 9.8 FL (7.4-10.4); MONOCYTES # (AUTO) 0.5 X 10^3 (0.0-1.0); MONOCYTES % (AUTO) 9 % (0-12); NEUTROPHILS # (AUTO) 3.3 X 10^3 (1.8-7.8); NEUTROPHILS % (AUTO) 61 % (42-75); PLATELET COUNT 257 10^3/uL (130-400); RED BLOOD COUNT 4.05 10^6/uL (4.35-5.85); RED CELL DISTRIBUTION WIDTH 15.9 % (10.0-14.5); WHITE BLOOD COUNT 5.5 10^3/uL (4.3-11.0)
[2016-08-11 06:00] LABS: ANION GAP 7 MMOL/L (5-14); BLOOD UREA NITROGEN 10 MG/DL (7-18); BUN/CREATININE RATIO 13; CALCIUM 8.2 MG/DL (8.5-10.1); CARBON DIOXIDE 24 MMOL/L (21-32); CHLORIDE 109 MMOL/L (98-107); GFR ESTIMATED > 60; GLUCOSE 130 MG/DL (70-105); MAGNESIUM 2.6 MG/DL (1.8-2.4); POTASSIUM 4.2 MMOL/L (3.6-5.0); SODIUM 140 MMOL/L (135-145)
[2016-08-11] MEDS: CATHETER FLUSH 10 ML SYR IV SCH ×3 (06:00→20:37)
[2016-08-11] MEDS ORDERED: OCTREOTIDE DRIP KIT ONE (06:02)
[2016-08-11] MEDS ORDERED: NS (IVPB) 100 ML ONE (06:03)
[2016-08-11] MEDS: OCTREOTIDE INJECTION 500 MCG in NS (IVPB) 99 ML IV SCH (06:13)
--- NOTE | 2016-08-11 06:59 | Pulmonary Progress Note ---
Subjective Subjective/Events-last exam Pt has had decreasing BRBPR. Exam Exam Vital Signs Date Time Temp Pulse Resp B/P (MAP) Pulse Ox O2 Delivery O2 Flow Rate FiO2 08/11/16 06:00 47 14 160/71 94 NIV CPAP 08/11/16 05:00 50 14 161/74 94 NIV CPAP 08/11/16 04:00 45 10 150/66 92 NIV CPAP 08/11/16 04:00 6 08/11/16 03:00 51 25 149/66 92 NIV CPAP 21.00 08/11/16 02:00 46 14 133/63 93 NIV CPAP 21.00 08/11/16 01:00 45 08/11/16 01:00 55 14 170/74 93 NIV CPAP 21.00 08/11/16 00:14 98.4 NIV CPAP 21.00 08/11/16 00:00 49 15 161/75 93 NIV CPAP 21.00 08/11/16 00:00 6 08/10/16 23:00 64 19 156/77 93 Room Air 08/10/16 22:00 53 29 166/70 96 Room Air 08/10/16 21:00 52 15 93 Room Air 08/10/16 20:00 49 17 169/74 93 Room Air 08/10/16 20:00 6 08/10/16 19:30 98.9 Room Air 08/10/16 19:00 42 08/10/16 19:00 49 17 154/66 93 Room Air 08/10/16 18:00 62 24 168/85 94 Room Air 08/10/16 17:00 53 17 170/81 94 Room Air 08/10/16 16:10 97 08/10/16 16:10 98.4 Room Air 08/10/16 16:00 52 18 162/84 94 Room Air 08/10/16 15:00 50 10 154/77 91 Room Air 08/10/16 14:00 56 14 173/88 95 Room Air 08/10/16 13:00 52 10 154/73 94 Room Air 08/10/16 13:00 48 08/10/16 12:40 98.5 Room Air 08/10/16 12:40 97 08/10/16 12:00 53 12 144/81 95 Room Air 08/10/16 11:00 51 15 162/79 92 Room Air 08/10/16 10:00 97.3 Room Air 08/10/16 10:00 56 29 158/79 95 Room Air 08/10/16 09:00 47 13 136/71 91 Room Air 08/10/16 08:00 70 17 95 Room Air 08/10/16 08:00 97 08/10/16 07:55 98.4 Room Air 08/10/16 07:00 64 08/10/16 07:00 58 12 158/78 92 Room Air I & O 08/11/16 07:00 Intake Total 4320 ml Output Total 3600 ml Balance 720 ml General Appearance: No Apparent Distress, WD/WN, Chronically ill HEENT: PERRL/EOMI, Normal ENT Inspection, Pharynx Normal Neck: Full Range of Motion, Normal Inspection, Non Tender, Supple, Carotid Bruit Respiratory: Chest Non Tender, Lungs Clear, Normal Breath Sounds, No Accessory Muscle Use, No Respiratory Distress Cardiovascular: No Edema, No Gallop, No JVD, No Murmur, Normal Peripheral Pulses, Irregularly Irregular Capillary Refill: Less Than 3 Seconds Gastrointestinal: normal bowel sounds, non tender, soft Extremity: Normal Capillary Refill, Normal Inspection, Normal Range of Motion, Non Tender, No Calf Tenderness, No Pedal Edema Neurologic/Psychiatric: Alert, Oriented x3, No Motor/Sensory Deficits, Normal Mood/Affect Skin: Normal Color, Warm/Dry Lymphatic: No Adenopathy Results Lab Laboratory Tests 08/09/16 20:20 08/10/16 00:18 08/10/16 04:12 08/10/16 11:55 08/10/16 18:30 08/10/16 23:40 08/11/16 05:25 Assessment/Plan Assessment/Plan -Acute GIB - Pt has not required any transfusions thus far -monitor H&H -Surgery following - plan is for EGD/Colonoscopy today -Hold Xarelto -Protonix BID Hx of Afib Clinical Quality Measures DVT/VTE Risk/Contraindication: Risk Factor Score Per Nursin RFS Level Per Nursing on Admit: 2=Moderate KIMBERLYN PULIDO DO Aug 11, 2016 06:59
[2016-08-11] MEDS: PANTOPRAZOLE 40 MG/10 ML (PROTONIX) VIAL IV SCH ×2 (09:27→20:37)
--- NOTE | 2016-08-11 09:54 | Diagnostic Imaging Report ---
Portable erect AP chest at 4:38 AM. INDICATION: Followup GI bleed. There is a better respiratory effort on this study than on the prior exam of 08/10/2016. Allowing for this technical factor, the heart is enlarged but stable. The lungs are clear. There is no sign of failure, pneumonia, or of a pleural effusion to suggest an acute abnormality. The mediastinum is not widened. The osseous structures are intact. The loop recorder device overlying the lower thorax on the left seen previously is again evident. Also, as on the prior exam, there is still distention of the stomach and bowel by gas. The mediastinum is not widened. The osseous structures are intact. IMPRESSION: Stable chest. There has been no adverse change since the prior exam. Dictated by: Dictated on workstation # [id number]
--- NOTE | 2016-08-11 11:32 | Conscious Sedation/ASA ---
Conscious Sedation Pre-Proced Time Reviewed: 11:30 ASA Class: 3 Airway Mallampati Classification: ([place] appropriate class) I. II. III, IV Lungs Heart ASA score ASA 1: a normal healthy patient ASA 2: a patient with a mild systemic disease (mid diabetes, controlled hypertension, obesity ASA 3: a patient with a severe systemic disease that limits activity (angina , COPD, prior Myocardial infarction) ASA 4: a patient with an incapacitating disease that is a constant threat to life (CHF, renal failure) ASA 5: a moribund patient not expected to survive 24 hrs. (ruptured aneurysm) ASA 6: a declared brain patient whose organs are being harvested. For emergent operations, add the letter E after the classification Grade 2 Sedation Plan: Analgesia, Amnesia, Plan communicated to team members, Discussed options with patient/fam, Discussed risks with patient/fam Note The patient is an appropriate candidate to undergo the planned procedure, sedation, and anesthesia. The patient immediately re-assessed prior to indication. ALAINA IRVING MD Aug 11, 2016 11:32 am
--- NOTE | 2016-08-11 11:33 | Progress Note-Pre Operative ---
Pre-Operative Progress Note H&P Reviewed The H&P was reviewed, patient examined and no changes noted. Date H&P Reviewed: Aug 11, 2016 Time H&P Reviewed: 11:30 Pre-Operative Diagnosis: anemia, GI bleed ALAINA IRVING MD Aug 11, 2016 11:33 am
--- NOTE | 2016-08-11 12:07 | Progress Note-Hospitalist ---
Subjective HPI/CC On Admission CC: GI bleed HPI: This is 81[address] pt of [address] Soni with past hx of gastric ulcers and on anticoagulation for AF with hx of GI bleed who presents to the ER with abdominal and coffee ground emesis and blood per rectum. She has been admitted, preparing for endoscopy and has not required transfusion thus far. Hgb upon admission was 13 now 11. Patient Interview: Pt states she remember Dr. Sosa from her last stay at [facility] that was caused by AF at that time. Pt states she has a lot of pressure in her stomach area. Pt states she wants Dr. Martin to scope her. Pt states she lives in [facility] and she has a helper that cleans and prepares meals. Pt was told her blood work and labs look good currently. Pt was told her blood thinner will be held. Pt denies being in pain and declines pain meds. Scribed by Rome Gómez under the direct supervision of Dr. Sosa. Date Seen 08/11/16 Subjective/Events-last exam Patient denies abdominal pain today and is had no melena or vomiting. She is alert and oriented this morning waiting on endoscopy later this morning. She reports past history of gastric ulceration with bleeding when she was on eliquis for paroxysmal atrial fibrillation. Objective Exam Vital Signs Vital Sign - Last 12Hours 08/09/16 08/11/16 20:10 00:00 Temp 98.6 Pulse 73 Resp 18 B/P (MAP) 165/91 Pulse Ox 98 O2 Flow Rate 21.00 Capillary Refill : Less Than 3 Seconds General Appearance: No Apparent Distress, Obese Respiratory: Chest Non Tender, Lungs Clear, Normal Breath Sounds, No Accessory Muscle Use, No Respiratory Distress Cardiovascular: Regular Rate, Rhythm, No Edema, No Gallop, No JVD, No Murmur, Normal Peripheral Pulses Gastrointestinal: Normal Bowel Sounds, No Organomegaly, No Pulsatile Mass, Non Tender, Soft Results/Procedures Lab Laboratory Tests 08/10/16 18:30 08/10/16 23:40 08/11/16 05:25 Assessment/Plan Assessment and Plan Assess & Plan/Chief Complaint 1. Upper GI bleed patient currently hemodynamically stable scheduled for endoscopy later today. Continue to monitor counts and continue PPI therapy. 2. Paroxysmal atrial fibrillation holding anticoagulant therapy due to number 1. CARLINE GARCIA MD Aug 11, 2016 12:07
[2016-08-11] MEDS ORDERED: NS IV 500 ML 500 ML ONE (12:19)
[2016-08-11] MEDS ORDERED: LIDOCAINE JELLY 2% (XYLOCAINE) 5 ML TUBE ONE (12:26)
[2016-08-11] MEDS ORDERED: fentaNYL INJECTION 100 MCG/2 ML AMP ONE ×2 (12:26)
[2016-08-11] MEDS ORDERED: MIDAZOLAM 2 MG/2 ML (VERSED) VIAL ONE ×4 (12:26→12:27)
[2016-08-11] MEDS ORDERED: HURRICAINE EXT TUBE (BENZOCAINE) ONE (12:27)
[2016-08-11] MEDS: fentaNYL INJECTION 100 MCG/2 ML AMP IVP PRN ×4 (12:30→13:18)
[2016-08-11] MEDS ORDERED: NS IV 500 ML 500 ML IV PRN (12:30)
[2016-08-11] MEDS: MIDAZOLAM 2 MG/2 ML (VERSED) VIAL IVP PRN ×4 (12:31→13:30)
--- NOTE | 2016-08-11 13:53 | Progress Note-Post Operative ---
Post-Operative Progess Note Surgeon (s)/Corporate Associate Attorney (s) Surgeon ALAINA IRVING MD Corporate Associate Attorney: none Pre-Operative Diagnosis anemia, GI bleed Post-Operative Diagnosis reflux esophagitis(class B), no HH with intact wrap, moderate gastritis. chronic stage 2 ext and int hemorrhoids with previous internal hemorrhoidal bleed, no old blood proximal colorectal anastomosis. Post-Op Procedure Note Date of Procedure: Aug 11, 2016 Name of Procedure Performed: EGD with bx. Colonoscopy. Description of the Procedure: EGD with bx. Colonoscopy. Findings of the Procedure . Anesthesia Type CS Estimated blood loss (mL): minimal Specimen(s) collected/removed GE jxn, antrum ALAINA IRVING MD Aug 11, 2016 1:53 pm
[2016-08-11] MEDS ORDERED: LIDOCAINE JELLY 2% (XYLOCAINE) 5 ML TUBE MM PRN (14:00)
[2016-08-11] MEDS ORDERED: HURRICAINE EXT TUBE (BENZOCAINE) XX PRN (14:00)
[2016-08-11] MEDS: ACETAMINOPHEN 500 MG TAB (TYLENOL) PO PRN (19:30)
[2016-08-12 00:10] VITALS: BP 162/81
[2016-08-12] MEDS: NS IV 1000 ML 1,000 ML IV SCH (02:23)
[2016-08-12 04:10] VITALS: BP 143/59
[2016-08-12] MEDS: CATHETER FLUSH 10 ML SYR IV SCH (06:00)
[2016-08-12 06:45] LABS: BASOPHILS # (AUTO) 0.1 10^3/uL (0.0-0.1); BASOPHILS % (AUTO) 1 % (0-10); EOSINOPHILS # (AUTO) 0.4 10^3/uL (0.0-0.3); EOSINOPHILS % (AUTO) 6 % (0-10); LYMPHOCYTES # (AUTO) 1.3 X 10^3 (1.0-4.0); LYMPHOCYTES % (AUTO) 20 % (12-44); MEAN CORPUSCULAR HEMOGLOBIN 26 PG (25-34); MEAN CORPUSCULAR HGB CONC 32 G/DL (32-36); MEAN CORPUSCULAR VOLUME 81 FL (80-99); MEAN PLATELET VOLUME 10.1 FL (7.4-10.4); MONOCYTES # (AUTO) 0.6 X 10^3 (0.0-1.0); MONOCYTES % (AUTO) 9 % (0-12); NEUTROPHILS # (AUTO) 4.1 X 10^3 (1.8-7.8); NEUTROPHILS % (AUTO) 64 % (42-75); PLATELET COUNT 246 10^3/uL (130-400); RED BLOOD COUNT 4.18 10^6/uL (4.35-5.85); RED CELL DISTRIBUTION WIDTH 15.8 % (10.0-14.5); WHITE BLOOD COUNT 6.4 10^3/uL (4.3-11.0)
[2016-08-12 06:56] LABS: ANION GAP 9 MMOL/L (5-14); BLOOD UREA NITROGEN 10 MG/DL (7-18); BUN/CREATININE RATIO 13; CALCIUM 8.2 MG/DL (8.5-10.1); CARBON DIOXIDE 21 MMOL/L (21-32); CHLORIDE 109 MMOL/L (98-107); CREATININE SERUM 0.79 MG/DL (0.60-1.30); GFR ESTIMATED > 60; GLUCOSE 121 MG/DL (70-105); MAGNESIUM 2.6 MG/DL (1.8-2.4); POTASSIUM 3.9 MMOL/L (3.6-5.0); SODIUM 139 MMOL/L (135-145)
[2016-08-12] MEDS: PANTOPRAZOLE 40 MG/10 ML (PROTONIX) VIAL IV SCH (07:46)
[2016-08-12] MEDS: ACETAMINOPHEN 500 MG TAB (TYLENOL) PO PRN (07:46)
[2016-08-12 08:00] VITALS: BP 169/80
[2016-08-12] MEDS ORDERED: OMEP20CA12 PO (08:22)
--- NOTE | 2016-08-12 08:41 | Discharge Summary-Hospitalist ---
Diagnosis/Chief Complaint Date of Admission Aug 09, 2016 at 22:05 Date of Discharge Discharge Date: Aug 12, 2016 Admission Diagnosis Assessment: GI bleed on anticoagulation Chronically to fibrillation CAD Hypertension Anemia due to acute blood loss from GI bleed Discharge Diagnosis 1. Upper GI bleed secondary to gastritis aggravated by Xaralto 2. Paroxysmal atrial fibrillation holding anticoagulant therapy due to number 1. Reason Hospital Visit/Course CC: GI bleed HPI: This is 81yoWF pt of [address] Soni with past hx of gastric ulcers and on anticoagulation for AF with hx of GI bleed who presents to the ER with abdominal and coffee ground emesis and blood per rectum. She has been admitted, preparing for endoscopy and has not required transfusion thus far. Hgb upon admission was 13 now 11. Patient Interview: Pt states she remember Dr. Sosa from her last stay at [facility] that was caused by AF at that time. Pt states she has a lot of pressure in her stomach area. Pt states she wants Dr. Martin to scope her. Pt states she lives in [facility] and she has a helper that cleans and prepares meals. Pt was told her blood work and labs look good currently. Pt was told her blood thinner will be held. Pt denies being in pain and declines pain meds. Scribed by Rome Gómez under the direct supervision of Dr. Sosa. Hospital course the patient had no further coffee-ground emesis and had no bright red blood per rectum. She underwent camejo endoscopy per Dr. ARISTIDES mcintyre noted gastritis without active GI bleeding on upper endoscopy. Apparently there was no evidence for ulceration. She did have Grade 2 internal an extra one hemorrhoid on colonoscopy which revealed no neoplasia or blood in the lower GI tract. Her hemoglobin was 10.6 on discharge was stable vital signs. She was discharged on omeprazole 20 mg daily and told to resume's are also for intermittent atrial fibrillation on Wednesday. She reported drooling and questionable dystonic movement disorder since starting metoclopramide so this was discontinued. Her other home medications were continued. She was advised to see Dr. Soni in 1-2 weeks. She was advised to avoid aspirin and nonsteroidal medications. For intermittent leg pain she takes when necessary Tylenol. Discharge Summary Discharge Physical Examination Allergies: Coded Allergies: Penicillins (Verified Allergy, Unknown, 07/26/07) Shellfish (Verified Allergy, Unknown, 07/26/07) Sulfa (Sulfonamide Antibiotics) (Verified Allergy, Unknown, 07/26/07) azithromycin (Unverified Allergy, Unknown, ITCHING, 08/05/13) cephalexin (Verified Allergy, Unknown, 07/26/07) erythromycin base (Verified Allergy, Unknown, 07/26/07) furosemide (Verified Allergy, Unknown, 07/26/07) nitrofurantoin (Unverified Allergy, Unknown, ITCHING/"THICK TONGUE", ) tetracycline (Verified Allergy, Unknown, 07/26/07) Uncoded Allergies: TAPE (Allergy, Unknown, 07/26/07) Vitals & I&Os Vital Signs Date Time Temp Pulse Resp B/P (MAP) Pulse Ox O2 Delivery O2 Flow Rate FiO2 08/12/16 04:10 97.5 51 18 143/59 94 Room Air 08/11/16 03:00 21.00 Hospital Course Labs (last 24 hrs) Laboratory Tests 08/11/16 12:04: Hemoglobin 10.9L, Hematocrit 34L 08/11/16 16:07: Glucometer 105 08/11/16 16:34: Hemoglobin 11.2L, Hematocrit 36 08/11/16 20:56: Glucometer 122H 08/12/16 06:06: White Blood Count 6.4, Red Blood Count 4.18L, Hemoglobin 10.9L, Hematocrit 34L, Mean Corpuscular Volume 81, Mean Corpuscular Hemoglobin 26, Mean Corpuscular Hemoglobin Concent 32, Red Cell Distribution Width 15.8H, Platelet Count 246, Mean Platelet Volume 10.1, Neutrophils (%) (Auto) 64, Lymphocytes (%) (Auto) 20 , Monocytes (%) (Auto) 9, Eosinophils (%) (Auto) 6, Basophils (%) (Auto) 1, Neutrophils # (Auto) 4.1, Lymphocytes # (Auto) 1.3, Monocytes # (Auto) 0.6, Eosinophils # (Auto) 0.4H, Basophils # (Auto) 0.1, Sodium Level 139, Potassium Level 3.9, Chloride Level 109H, Carbon Dioxide Level 21, Anion Gap 9, Blood Urea Nitrogen 10, Creatinine 0.79, Estimat Glomerular Filtration Rate > 60, BUN/ Creatinine Ratio 13, Glucose Level 121H, Calcium Level 8.2L, Phosphorus Level 2.0L, Magnesium Level 2.6H 08/12/16 06:46: Glucometer 132H Microbiology 08/09/16 MRSA Screen - Final, Complete MRSA not isolated Pending Labs Laboratory Tests 08/12/16 06:06: White Blood Count 6.4, Red Blood Count 4.18, Hemoglobin 10.9, Hematocrit 34, Mean Corpuscular Volume 81, Mean Corpuscular Hemoglobin 26, Mean Corpuscular Hemoglobin Concent 32, Red Cell Distribution Width 15.8, Platelet Count 246, Mean Platelet Volume 10.1, Neutrophils (%) (Auto) 64, Lymphocytes (%) (Auto) 20 , Monocytes (%) (Auto) 9, Eosinophils (%) (Auto) 6, Basophils (%) (Auto) 1, Neutrophils # (Auto) 4.1, Lymphocytes # (Auto) 1.3, Monocytes # (Auto) 0.6, Eosinophils # (Auto) 0.4, Basophils # (Auto) 0.1, Sodium Level 139, Potassium Level 3.9, Chloride Level 109, Carbon Dioxide Level 21, Anion Gap 9, Blood Urea Nitrogen 10, Creatinine 0.79, Estimat Glomerular Filtration Rate > 60, BUN/ Creatinine Ratio 13, Glucose Level 121, Calcium Level 8.2, Phosphorus Level 2.0 , Magnesium Level 2.6 08/12/16 06:46: Glucometer 132 Discharge Home Medications: Active Scripts Active Omeprazole 20 Mg Capsule.dr 20 Mg PO DAILY 30 Days Reported Amiodarone HCl 100 Mg Tablet 100 Mg PO DAILY LAST FILLED 05/30/16 #30 Montelukast Sodium 10 Mg Tablet 10 Mg PO HS Xarelto (Rivaroxaban) 20 Mg Tablet 20 Mg PO DAILY Metoclopramide HCl 5 Mg Tablet 5 Mg PO TIDWM Mylanta Suspension (Al Hydrox/Mg Hydrox/Simethicone) 30 Ml Oral.susp 1 Tbs PO BID PRN Pepcid Complete Tablet Chew (Famotidine/Ca Carb/Mag Hydrox) 1 Each Tab.chew 1 Tab.chew PO DAILY PRN Cyanocobalamin Injection (Cyanocobalamin) 1,000 Mcg/Ml Inj 1,000 Mcg INJ MONTHLY 20TH OF EACH MONTH Latanoprost 2.5 Ml Drops 1 Drop OU HS Alprazolam 0.25 Mg Tablet 0.25 Mg PO Q8H PRN Levothyroxine Sodium 50 Mcg Tablet 50 Mcg PO DAILY Klor-Con M10 (Potassium Chloride) 10 Meq Tab.er.prt 10 Meq PO DAILY Irbesartan 300 Mg Tablet 300 Mg PO DAILY Acetaminophen Extra Strength (Acetaminophen) 500 Mg Tablet 500 Mg PO BID PRN Fexofenadine Hcl (Fexofenadine HCl) 180 Mg Tablet 180 Mg PO DAILY Instructions to patient/family Please see electonic discharge instructions given to patient. Clinical Quality Measures DVT/VTE Risk/Contraindication: Risk Factor Score Per Nursin RFS Level Per Nursing on Admit: 2=Moderate Copy Copies To 2: ESTHER SONI MARK D MD Aug 12, 2016 08:41
--- NOTE | 2016-08-12 11:57 | OPERATIVE REPORT ---
PROCEDURE PHYSICIAN: ALAINA IRVING DATE OF ADMISSION: 08/09/2016 DATE OF PROCEDURE: 08/11/2016 ATTENDING PRIMARY CARE PHYSICIAN: Dr. Soni. PREOPERATIVE DIAGNOSIS: 1. Rectal bleeding. 2. Anemia. 3. History of peptic ulcer disease. POSTOPERATIVE DIAGNOSES: 1. Reflux esophagitis, class B. 2. No recurrent hiatal hernia with intact previous wrap. 3. Moderate severity gastritis. 4. No active bleeding. 5. Chronic between stage II and III external and internal hemorrhoids with old clotted blood within the rectal vault. She had a previous colorectal anastomosis which appeared normal with no stricture. 6. There no blood proximal to this anastomosis. 7. No active bleeding. PROCEDURE: 1. EGD with biopsy. 2. Colonoscopy. SURGEON: Dr. Irving. ANESTHESIA: Conscious sedation. ESTIMATED BLOOD LOSS: Minimal. FINDINGS: EGD: 1. Reflux esophagitis, class B. 2. No recurrent hiatal hernia with intact wrap. 3. Moderate severity gastritis. 4. The pylorus and duodenum appeared normal. 5. No active bleeding. COLONOSCOPY: 1. Chronic between stage II and III external and internal hemorrhoids with old clotted blood within the rectal vault. No active bleeding. This was most likely due to internal hemorrhoidal bleed and being on anticoagulation. There is no blood proximal to the colorectal anastomosis and no stricture identified. 2. The remainder of the colon was normal. DISPOSITION: The patient tolerated the procedure well. Ms. Yung is a 81-year-old female who presented to [facility] emergency department at night with complaints of blood per rectum. She had reported that several days earlier she had noticed some dark stools. She does have extensive past medical history including congestive heart failure and atrial fibrillation and is on different anticoagulation medications in the past and has had previous gastrointestinal bleeding in the past as well. She also has a history of peptic ulcer disease and gastroesophageal reflux disease and underwent a hiatal hernia repair, as well as a Hill gastropexy in the past. She is currently on Xarelto. The patient was brought to the endoscopy suite, laid in left lateral decubitus position with the head slightly elevated. After adequate IV pain and sedative medications and conscious sedation anesthesia, the mouthpiece was applied. The endoscope was placed in the mouth, visualizing the pharynx and hypopharyngeal region. Vocal cords, epiglottis and vallecula identified and appeared to be normal. The endoscope was then gently intubated the esophageal opening and the esophagus insufflated. The endoscope was then advanced through the first, second, and 3rd portions esophagus at the level of the GE junction, a reflux esophagitis, class B identified. There were no ulcers or strictures identified in this region. A biopsy was taken with forceps and electrocautery with visualization of good hemostasis. The endoscope was then easily advanced into the stomach and endoscope retroflexed. There were postsurgical changes consistent with a previous antireflux procedure, which appeared to be intact with no recurrent hiatal hernia. There was moderate severity gastritis. There were no formal ulcers, polyps or any neoplasms, as well as no active bleeding. A biopsy was taken of the stomach antrum, with forceps and cautery with visualization of good hemostasis. The endoscope was then advanced through the pylorus and into the first and second portion of the duodenum, which appeared normal with no duodenal ulcers. The endoscope was slowly withdrawn while taking a second look and suctioning of residual air with no additional findings. The patient tolerated this portion the procedure well. We will recommend conservative medical management with smaller, more frequent meals, avoidance of eating at night, as well as head elevation while lying supine. We will also start her on Protonix 40 mg daily, as well as Carafate for the next 2 weeks. She also needs to avoid caffeinated beverages, spicy, greasy and acidic foods. Under the same conscious sedation anesthesia, we then proceeded with the colonoscopy portion the procedure. A digital rectal examination was performed. She was found to have chronic between stage II and III external and internal hemorrhoids. There was no active bleeding identified; however, there was old dark blood within the rectal vault. Most likely her bleeding was due to internal hemorrhoidal bleeding which had stopped on its own. There were no palpable masses. The endoscope was then intubated into anus and the rectum gently insufflated. There was again a significant amount of old blood as well as brown stools within the rectal vault. This was irrigated and suctioned as well as possible. There was no active bleeding identified. The patient did have a previous sigmoid colon resection due to rectal prolapse. The area of anastomosis appeared intact with no strictures, as well as no active bleeding. There was no old blood proximal to the area of the anastomosis. The endoscope was then advanced through the remainder of the descending, transverse, and ascending colon to the cecum. These segments were normal. There was no old or new blood as well as no polyps or any neoplasms or any bleeding sources identified. The endoscope was then slowly withdrawn while taking a second look and suctioning residual air with no additional findings. The patient tolerated this portion the procedure well. More than likely her bleeding was due to an internal hemorrhoidal bleed and being on anticoagulation with Xarelto. We will recommend conservative management with a high fiber diet with least 25 grams of fiber per day, as well as copious amounts of water to promote soft stools on a daily basis. We will start a clear liquid diet and advance as tolerated. Once she does not show any signs of any clinical bleeding and has stable hemoglobin. She may restart anticoagulation which recommend the next 2 days. Job ID: [id number] Dictated Date: 08/11/2016 14:03:48 Air Support Control Officer Date: 08/12/2016 11:46:09 / marcello
[2016-08-12 12:00] VITALS: BP 167/81
[2016-08-12 14:30] VITALS: BP 158/82
[2016-08-12] MEDS ORDERED: SUCR1TAB36 PO (19:11)
[2016-08-31] MEDS ORDERED: HYDR-3812 PO (09:21)
--- OUTSIDE RECORDS SUMMARY | 2016-09-13 04:26 | XMS REPORT | Continuity of Care Document ---
Author Author [facility] Organization [facility] Address Unknown Phone Unavailable Allergies Active Description Code Type Severity Reaction Onset Reported/Identified Relationship to Patient Clinical Status Yes cephalexin [id number] Drug Allergy Unknown N/A 07/26/2007 Yes erythromycin base [id number] Drug Allergy Unknown N/A 07/26/2007 Yes furosemide [id number] Drug Allergy Unknown N/A 07/26/2007 Yes Penicillins [id number] Drug Allergy Unknown N/A 07/26/2007 Yes Shellfish [id number] Drug Allergy Unknown N/A 07/26/2007 Yes Sulfa (Sulfonamide Antibiotics) [id number] Drug Allergy Unknown N/A 07/26/2007 Yes TAPE TAPE Unknown N/A 07/26/2007 Yes tetracycline [id number] Drug Allergy Unknown N/A 07/26/2007 Yes ciprofloxacin [id number] Drug Allergy Unknown N/A 02/01/2009 Yes azithromycin [id number] Drug Allergy Unknown ITCHING 08/05/2013 Yes nitrofurantoin [id number] Drug Allergy Unknown ITCHING/ "THICK 08/05/2013 Medications 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 08/11/2010 Ot 786.05 SHORTNESS OF BREATH 08/11/2010 Ot V58.69 OTH MED,LT,CURRENT USE 01/15/2011 Ot 455.6 HEMORRHOIDS NOS 01/15/2011 Ot 569.3 RECTAL ANAL HEMORRHAGE 02/03/2011 Ot 401.9 HYPERTENSION NOS 02/03/2011 Ot 729.81 SWELLING OF LIMB 02/03/2011 Ot 782.3 EDEMA 02/03/2011 Ot 786.05 SHORTNESS OF BREATH 02/03/2011 Ot V58.69 OTH MED,LT,CURRENT USE 09/10/2011 Ot 709.9 SKIN DISORDER NOS 12/23/2011 Ot 300.00 ANXIETY STATE NOS 12/23/2011 Ot 455.2 INT HEMRRHOID W COMP NEC 12/23/2011 Ot 569.3 RECTAL ANAL HEMORRHAGE 12/28/2011 Ot 455.3 EXT HEMORRHOID W/O COMPL 12/28/2011 Ot 562.10 DIVERTICULOSIS COLON (W/O MENT OF HEMORR 01/27/2012 Ot 455.2 INT HEMRRHOID W COMP NEC 03/05/2012 Ot 379.93 REDNESS/DISCHARGE OF EYE 03/05/2012 Ot 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 03/05/2012 Ot E000.8 OTHER EXTERNAL CAUSE STATUS 03/05/2012 Ot E849.0 ACCIDENT IN HOME 03/05/2012 Ot E917.9 STRUCK BY OBJ/PERSON NEC 07/04/2012 Ot 244.9 HYPOTHYROIDISM NOS 07/04/2012 Ot 272.4 HYPERLIPIDEMIA NEC/NOS 07/04/2012 Ot 276.50 VOLUME DEPLETION, UNSPECIFIED 07/04/2012 Ot 401.9 HYPERTENSION NOS 07/04/2012 Ot 427.69 PREMATURE BEATS NEC 07/04/2012 Ot 530.81 ESOPHAGEAL REFLUX 07/04/2012 Ot 786.59 CHEST PAIN NEC 07/04/2012 Ot 787.91 DIARRHEA 07/04/2012 Ot V58.69 OTH MED,LT,CURRENT USE 07/26/2012 Ot 427.69 PREMATURE BEATS NEC 07/26/2012 Ot 784.99 OTHER SYMPTOMS INVOLVING HEAD AND NECK 07/26/2012 Ot 995.3 ALLERGY, UNSPECIFIED 07/26/2012 Ot V58.69 OTH MED,LT,CURRENT USE 11/07/2012 LORIE GARIBAY FACC, KISHAN FACP CCDS Ot 401.9 HYPERTENSION NOS 11/07/2012 LORIE GARIBAY FACC, KISHAN FACP CCDS Ot 427.31 ATRIAL FIBRILLATION 11/07/2012 LORIE GARIBAY FACC, ALI FACP CCDS Ot 427.81 SINOATRIAL NODE DYSFUNCT 11/07/2012 LORIE GARIBAY FACC, ALI FACP CCDS Ot 428.0 CONGESTIVE HEART FAILURE NOS 11/07/2012 LORIE GARIBAY FACC, ALI FACP CCDS Ot 428.31 ACUTE DIASTOLIC HRT FAILURE 01/02/2013 SMITH ELLIS MD Ot 276.8 HYPOPOTASSEMIA 01/02/2013 SMITH ELLIS MD Ot 300.00 ANXIETY STATE NOS 01/02/2013 SMITH ELLIS MD Ot 311 DEPRESSIVE DISORDER NEC 01/02/2013 SMITH ELLIS MD Ot 401.9 HYPERTENSION NOS 01/02/2013 SMITH ELLIS MD Ot 414.01 CORONARY ATHEROSCLEROSIS OF [place] CORON 01/02/2013 SMITH ELLIS MD Ot 427.31 ATRIAL FIBRILLATION 01/02/2013 SMITH ELLIS MD Ot 553.3 DIAPHRAGMATIC HERNIA 01/02/2013 SMITH ELLIS MD Ot 560.9 INTESTINAL OBSTRUCT NOS 01/02/2013 SMITH ELLIS MD Ot 564.09 OTHER CONSTIPATION 01/02/2013 SMITH ELLIS MD Ot 564.1 IRRITABLE BOWEL SYNDROME 01/02/2013 SMITH ELLIS MD Ot 569.89 INTESTINAL DISORDERS NEC 01/02/2013 SMITH ELLIS MD Ot 715.90 OSTEOARTHROS NOS-UNSPEC 04/05/2013 MINDI LEE MD Ot 244.9 HYPOTHYROIDISM NOS 04/05/2013 MINDI LEE MD Ot 285.9 ANEMIA NOS 04/05/2013 MINDI LEE MD Ot 401.9 HYPERTENSION NOS 04/05/2013 MINDI LEE MD Ot 414.01 CORONARY ATHEROSCLEROSIS OF [place] CORON 04/05/2013 MINDI LEE MD Ot 427.31 ATRIAL FIBRILLATION 04/05/2013 MINDI LEE MD Ot 530.81 ESOPHAGEAL REFLUX 04/05/2013 MINDI LEE MD Ot 535.41 OTHER SPECIFIED GASTRITIS, WITH HEMORRHA 04/05/2013 MINDI LEE MD Ot 562.10 DIVERTICULOSIS COLON (W/O MENT OF HEMORR 04/05/2013 MINDI LEE MD Ot 790.29 OTHER ABNORMAL GLUCOSE 04/05/2013 MINDI LEE MD Ot V12.59 HX-CIRCULATORY SYST DIS,NEC 04/05/2013 MINDI LEE MD Ot V58.61 ANTICOAGULANTS,LT,CURRENT USE 08/05/2013 ZENIA MEDINA ELECTRIC SPOT WELDER Ot 401.9 HYPERTENSION NOS 08/05/2013 ZENIA MEDINA ELECTRIC SPOT WELDER Ot 564.00 UNSPEC CONSTIPATION 08/05/2013 ZENIA MEDINA ELECTRIC SPOT WELDER Ot 787.20 DYSPHAGIA, UNSPECIFIED 08/07/2013 SMITH ELLIS MD Ot 244.9 HYPOTHYROIDISM NOS 08/07/2013 ELLIS MD, SMITH M Ot 285.9 ANEMIA NOS 08/07/2013 CALEB GARIBAY, SMITH Timmons Ot 401.9 HYPERTENSION NOS 08/07/2013 CALEB GARIBAY, SMITH Timmons Ot 532.90 DUODENAL ULCER NOS 08/07/2013 CALEB GARIBAY, SMITH Timmons Ot 535.40 OTH SPECIFIED GASTRITIS,W/O MENTION OF H 08/07/2013 CALEB GARIBAY, SMITH Timmons Ot 578.9 GASTROINTEST HEMORR NOS 06/19/2014 ZENIA MEDINA ELECTRIC SPOT WELDER Ot 473.9 CHRONIC SINUSITIS NOS 06/19/2014 ZENIA MEDINA ELECTRIC SPOT WELDER Ot 780.79 OTH MALAISE FATIGUE 06/19/2014 ZENIA MEDINA ELECTRIC SPOT WELDER Ot 787.02 NAUSEA ALONE 06/19/2014 ZENIA MEDINA ELECTRIC SPOT WELDER Ot V58.69 OTH MED,LT,CURRENT USE 07/30/2014 HERMANN BUTLER MD Ot 244.0 POSTSURGICAL HYPOTHYROID 07/30/2014 HERMANN BUTLER MD Ot 280.0 CHR BLOOD LOSS ANEMIA 07/30/2014 HERMANN BUTLER MD Ot 300.00 ANXIETY STATE NOS 07/30/2014 HERMANN BUTLER MD Ot 311 DEPRESSIVE DISORDER NEC 07/30/2014 HERMANN BUTLER MD Ot 389.9 HEARING LOSS NOS 07/30/2014 HERMANN BUTLER MD Ot 401.9 HYPERTENSION NOS 07/30/2014 HERMANN BUTLER MD Ot 429.3 CARDIOMEGALY 07/30/2014 HERMANN BUTLER MD Ot 530.81 ESOPHAGEAL REFLUX 07/30/2014 HERMANN BUTLER MD Ot 531.70 CHR STOMACH ULCER NOS 07/30/2014 HERMANN BUTLER MD Ot 535.41 OTHER SPECIFIED GASTRITIS, WITH HEMORRHA 07/30/2014 HERMANN BUTLER MD Ot 562.10 DIVERTICULOSIS COLON (W/O MENT OF HEMORR 07/30/2014 HERMANN BUTLER MD Ot 564.1 IRRITABLE BOWEL SYNDROME 07/30/2014 HERMANN BUTLER MD Ot 715.90 OSTEOARTHROS NOS-UNSPEC 07/30/2014 HERMANN BUTLER MD Ot 733.00 OSTEOPOROSIS NOS 07/30/2014 HERMANN BUTLER MD Ot V12.71 PERSONAL HISTORY OF PEPTIC ULCER DISEASE 07/30/2014 HERMANN BUTLER MD Ot V12.79 PERSONAL HISTORY OTH SPEC DIGESTIVE SYST 07/30/2014 HERMANN BUTLER MD Ot V13.02 PERSONAL HISTORY, URINARY (TRACT) INFECT 07/30/2014 HERMANN BUTLER MD Ot V45.72 ACQRD ABSENCE INTESTINE - LARGE/SMALL 07/30/2014 HERMANN BUTLER MD, Ot V58.66 LONG-TERM (CURRENT) USE OF ASPIRIN 08/20/2014 ALAINA IRVING MD Ot 244.9 HYPOTHYROIDISM NOS 08/20/2014 ALAINA IRVING MD Ot 300.00 ANXIETY STATE NOS 08/20/2014 ALAINA IRVING MD Ot 401.9 HYPERTENSION NOS 08/20/2014 ARISTIDES GARIBAY, ALAINA Ot 427.31 ATRIAL FIBRILLATION 08/20/2014 ALAINA IRVING MD Ot 530.81 ESOPHAGEAL REFLUX 08/20/2014 ARISTIDES GARIBAY, ALAINA Ot 535.40 OTH SPECIFIED GASTRITIS,W/O MENTION OF H 08/20/2014 ALAINA IRVING MD Ot 560.9 INTESTINAL OBSTRUCT NOS 08/20/2014 ALAINA IRVING MD Ot 564.00 UNSPEC CONSTIPATION 08/20/2014 ARISTIDES GARIBAY, ALAINA Ot 599.0 URIN TRACT INFECTION NOS 08/20/2014 ARISTIDES GARIBAY, ALAINA Ot 244.9 08/20/2014 ARISTIDES GARIBAY, ALAINA Ot 300.00 08/20/2014 ARISTIDES GARIBAY, JOSEKI Ot 401.9 08/20/2014 ARISTIDES GARIBAY, ALAINA Ot 427.31 08/20/2014 ARISTDIES GARIBAY, ALAINA Ot 530.81 08/20/2014 ARISTIDES GARIBAY, HEATHERAAKI Ot 535.40 08/20/2014 ARISTIDES GARIBAY, HEATHERAAKI Ot 560.9 08/20/2014 ARISTIDES GARIBAY, HEATHERAAKI Ot 564.00 08/20/2014 ARISTIDES GARIBAY, HEATHERAAKI Ot 599.0 08/20/2014 ARISTIDES GARIBAY, HEATHERAAALMAZ Ot 244.9 08/20/2014 ARISTIDES GARIBAY, HEATHERAAKI Ot 300.00 08/20/2014 ARISTIDES GARIBAY, ALAINA Ot 401.9 08/20/2014 ARISTIDES GARIBAY, HEATHERAAKI Ot 427.31 08/20/2014 ARISTIDES GARIBAY, HEATHERAAKI Ot 530.81 08/20/2014 ARISTIDES GARIBAY, TAKAAKI Ot 535.40 08/20/2014 ARISTIDES GARIBAY, ALAINA Ot 560.9 08/20/2014 ARISTIDES GARIBAY, ALAINA Ot 564.00 08/20/2014 ARISTIDES GARIBAY, ALAINA Ot 599.0 10/03/2014 CALEB GARIBAY, SMITH Timmons Ot 244.8 ACQUIRED HYPOTHYROID NEC 10/03/2014 CALEB GARIBAY, SMITH Timmons Ot 401.9 HYPERTENSION NOS 10/03/2014 CALEB GARIBAY, SMITH Timmons Ot 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 10/06/2014 DANIELLE DO, ESTHER De Los Santos Ot 564.00 10/06/2014 DANIELLE DO, ESTHER De Los Santos Ot 789.00 10/16/2014 DANIELLE DO, ESTHER De Los Santos Ot 564.00 10/16/2014 DANIELLE DO, ESTHER De Los Santos Ot 789.00 11/22/2014 DANIELLE DO, ESTHER De Los Santos Ot 786.50 11/22/2014 DANIELLE DO, ESTHER De Los Santos Ot 959.11 11/22/2014 DANIELLE DO, ESTHER De Los Santos Ot E000.8 11/22/2014 DANIELLE DO, ESTHER De Los Santos Ot E928.9 12/03/2014 DANIELLE DO, ESTHER De Los Santos Ot 786.50 12/03/2014 DANIELLE DO, ESTHER De Los Santos Ot 959.11 12/03/2014 DANIELLE DO, ESTHER De Los Santos Ot E000.8 12/03/2014 DANIELLE DO, ESTHER De Los Santos Ot E928.9 05/19/2015 JANIE GARIBAY, CARLINE Kennedy Ot I48.91 UNSPECIFIED ATRIAL FIBRILLATION 05/19/2015 JANIE GARIBAY, CARLINE Kennedy Ot R00.2 PALPITATIONS 05/19/2015 JANIE GARIBAY, CARLINE Kennedy Ot R19.8 OT SYMPTOMS AND SIGNS INVOLVING THE DGS 01/13/2016 EARL GARIBAY, SAMIRA Velez Ot R10.84 GENERALIZED ABDOMINAL PAIN 01/13/2016 SAIMRA ELLIOTT MD Ot R19.7 DIARRHEA, UNSPECIFIED 01/13/2016 Ot 789.00 ABDOMINAL PAIN, UNSPECIFIED SITE 01/13/2016 Ot V72.84 EXAM PRE-OPERATIVE NOS 01/13/2016 Ot 455.6 HEMORRHOIDS NOS 01/13/2016 Ot V72.81 [id number] CARDIOVASCULAR 01/13/2016 Ot 477.9 ALLERGIC RHINITIS NOS 01/13/2016 CALEB GARIBAY, SMITH Timmons Ot V72.84 EXAM PRE-OPERATIVE NOS 01/13/2016 ESTHER DANIELLE DO Ot 564.00 UNSPEC CONSTIPATION 01/13/2016 ESTHER DANIELLE DO Ot 789.00 ABDOMINAL PAIN, UNSPECIFIED SITE 01/13/2016 CALEB GARIBAY, SMITH Timmons Ot V72.84 EXAM PRE-OPERATIVE NOS 01/13/2016 ESTHER DANIELLE DO Ot 786.50 CHEST PAIN NOS 01/13/2016 ESTHER DANIELLE DO Ot 959.11 OTH INJURY OF CHEST WALL 01/13/2016 ESTHER DANIELLE DO Ot E000.8 OTHER EXTERNAL CAUSE STATUS 01/13/2016 ESTHER DANIELLE DO Ot E928.9 ACCIDENT NOS 02/15/2016 ESTHER DANIELLE DO Ot E03.9 HYPOTHYROIDISM, UNSPECIFIED 02/15/2016 ESHTER DANIELLE DO Ot E11.9 TYPE 2 DIABETES MELLITUS WITHOUT COMPLIC 02/15/2016 ESTHER DANIELLE DO Ot E78.5 HYPERLIPIDEMIA, UNSPECIFIED 02/15/2016 ESTHER DANIELLE DO Ot E87.8 OT DISORDERS OF ELECTROLYTE AND FLUID B 02/15/2016 ESTHER DANIELLE DO Ot F32.9 MAJOR DEPRESSIVE DISORDER, SINGLE EPISOD 02/15/2016 ESTHER DANIELLE DO Ot F41.9 ANXIETY DISORDER, UNSPECIFIED 02/15/2016 ESTHER DANIELLE DO Ot G45.9 TRANSIENT CEREBRAL ISCHEMIC ATTACK, UNSP 02/15/2016 ESTHER DANIELLE DO Ot I10 ESSENTIAL (PRIMARY) HYPERTENSION 02/15/2016 ESTHER DANIELLE DO Ot I48.0 PAROXYSMAL ATRIAL FIBRILLATION 02/15/2016 ESTHER DANIELLE DO Ot K21.9 GASTRO-ESOPHAGEAL REFLUX DISEASE WITHOUT 02/15/2016 ESTHER DANIELLE DO Ot K59.09 OTHER CONSTIPATION 03/04/2016 Ot 789.00 ABDOMINAL PAIN, UNSPECIFIED SITE 03/04/2016 Ot V72.84 EXAM PRE-OPERATIVE NOS 03/04/2016 Ot 455.6 HEMORRHOIDS NOS 03/04/2016 Ot V72.81 [id number] CARDIOVASCULAR 03/04/2016 Ot 477.9 ALLERGIC RHINITIS NOS 03/04/2016 CALEB GARIBAY, SMITH Timmons Ot V72.84 EXAM PRE-OPERATIVE NOS 03/04/2016 LOLIS ESTHER REYNA Ot 564.00 UNSPEC CONSTIPATION 03/04/2016 DANIELLEESTHER VINSON DO Ot 789.00 ABDOMINAL PAIN, UNSPECIFIED SITE 03/04/2016 CALEB GARIBAY, SMITH Timmons Ot V72.84 EXAM PRE-OPERATIVE NOS 03/04/2016 LOLIS ESTHER REYNA Ot 786.50 CHEST PAIN NOS 03/04/2016 DANIELLEESTHER HERNANDEZ DO Ot 959.11 OTH INJURY OF CHEST WALL 03/04/2016 DANIELLEESTHER HERNANDEZ DO Ot E000.8 OTHER EXTERNAL CAUSE STATUS 03/04/2016 DANIELLEESTHER HERNANDEZ DO Ot E928.9 ACCIDENT NOS 03/10/2016 BEBETO HOLLINGSWORTH MD Ot E78.5 HYPERLIPIDEMIA, UNSPECIFIED 03/10/2016 BEBETO HOLLINGSWORTH MD Ot F41.8 OTHER SPECIFIED ANXIETY DISORDERS 03/10/2016 BEBETO HOLLINGSWORTH MD Ot I10 ESSENTIAL (PRIMARY) HYPERTENSION 03/10/2016 BEBETO HOLLINGSWORTH MD Ot I48.0 PAROXYSMAL ATRIAL FIBRILLATION 03/10/2016 BEBETO HOLLINGSWORTH MD, Ot I49.5 SICK SINUS SYNDROME 03/10/2016 BEBETO HOLLINGSWORTH MD Ot Z79.01 SNF (CURRENT) USE OF ANTICOAGULANT 03/10/2016 BEBETO HOLLINGSWORTH MD Ot Z79.899 OTHER INSTALLATION AND REPAIR TECHNICIAN (CURRENT) DRUG THERAPY 03/10/2016 BEBETO HOLLINGSWORTH MD Ot Z86.73 PRSNL HX OF TIA (TIA), AND CEREB INFRC W 03/27/2016 BEBETO HOLLINGSWORTH MD Ot E78.5 HYPERLIPIDEMIA, UNSPECIFIED 03/27/2016 BEBETO HOLLINGSWORTH MD Ot F41.8 OTHER SPECIFIED ANXIETY DISORDERS 03/27/2016 BEBETO HOLLINGSWORTH MD Ot I10 ESSENTIAL (PRIMARY) HYPERTENSION 03/27/2016 BEBETO HOLLINGSWORTH MD Ot I48.0 PAROXYSMAL ATRIAL FIBRILLATION 03/27/2016 BEBETO HOLLINGSWORTH MD Ot I49.5 SICK SINUS SYNDROME 03/27/2016 BEBETO HOLLINGSWORTH MD Ot Z79.01 SNF (CURRENT) USE OF ANTICOAGULANT 03/27/2016 BEBETO HOLLINGSWORTH MD Ot Z79.899 OTHER INSTALLATION AND REPAIR TECHNICIAN (CURRENT) DRUG THERAPY 03/27/2016 BEBETO HOLLINGSWORTH MD Ot Z86.73 PRSNL HX OF TIA (TIA), AND CEREB INFRC W 04/09/2016 BEBETO HOLLINGSWORTH MD Ot E78.5 HYPERLIPIDEMIA, UNSPECIFIED 04/09/2016 BEBETO HOLLINGSWORTH MD, Ot F41.8 OTHER SPECIFIED ANXIETY DISORDERS 04/09/2016 BEBETO HOLLINGSWORTH MD, Ot I10 ESSENTIAL (PRIMARY) HYPERTENSION 04/09/2016 BEBETO HOLLINGSWORTH MD, Ot I48.0 PAROXYSMAL ATRIAL FIBRILLATION 04/09/2016 BEBETO HOLLINGSWORTH MD, Ot I49.5 SICK SINUS SYNDROME 04/09/2016 BEBETO HOLLINGSWORTH MD, Ot Z79.01 SNF (CURRENT) USE OF ANTICOAGULANT 04/09/2016 BEBETO HOLLINGSWORTH MD Ot Z79.899 OTHER INSTALLATION AND REPAIR TECHNICIAN (CURRENT) DRUG THERAPY 04/09/2016 BEBETO HOLLINGSWORTH MD, Ot Z86.73 PRSNL HX OF TIA (TIA), AND CEREB INFRC W 08/12/2016 ESTHER DANIELLE DO, Ot D62 ACUTE POSTHEMORRHAGIC ANEMIA 08/12/2016 ESTHER DANIELLE DO, Ot E11.9 TYPE 2 DIABETES MELLITUS WITHOUT COMPLIC 08/12/2016 ESTHER DANIELLE DO, Ot E89.0 POSTPROCEDURAL HYPOTHYROIDISM 08/12/2016 ESTHER DANIELLE DO, Ot F32.9 MAJOR DEPRESSIVE DISORDER, SINGLE EPISOD 08/12/2016 ESTHER DANIELLE DO, Ot F41.9 ANXIETY DISORDER, UNSPECIFIED 08/12/2016 ESTHER DANIELLE DO, Ot H40.9 UNSPECIFIED GLAUCOMA 08/12/2016 ESTHER DANIELLE DO, Ot H91.90 UNSPECIFIED HEARING LOSS, UNSPECIFIED EA 08/12/2016 ESTHER DANIELLE DO, Ot I10 ESSENTIAL (PRIMARY) HYPERTENSION 08/12/2016 ESTHER DANIELLE DO, Ot I25.10 ATHSCL HEART DISEASE OF [place] CORONARY 08/12/2016 ESTHER DANIELLE DO, Ot I42.9 CARDIOMYOPATHY, UNSPECIFIED 08/12/2016 ESTHER DANIELLE DO, Ot I48.0 PAROXYSMAL ATRIAL FIBRILLATION 08/12/2016 ESTHER DANIELLE DO, Ot K21.0 GASTRO-ESOPHAGEAL REFLUX DISEASE WITH ES 08/12/2016 ESTHER DANIELLE DO, Ot K29.71 GASTRITIS, UNSPECIFIED, WITH BLEEDING 08/12/2016 DANIELLE DO, ESTHER J Ot K64.2 THIRD DEGREE HEMORRHOIDS 08/12/2016 ESTHER DANIELLE DO Ot M19.91 PRIMARY OSTEOARTHRITIS, UNSPECIFIED SITE 08/12/2016 ESTHER DANIELLE DO Ot M81.0 AGE-RELATED OSTEOPOROSIS W/O CURRENT PAT 08/12/2016 ESTHER DANIELLE DO Ot Z79.01 SNF (CURRENT) USE OF ANTICOAGULANT 08/12/2016 ESTHER DANIELLE DO Ot Z87.11 PERSONAL HISTORY OF PEPTIC ULCER DISEASE 08/22/2016 ZENIA MEDINA APRN Ot I10 ESSENTIAL (PRIMARY) HYPERTENSION 08/22/2016 ZENIA MEDINA APRN Ot I48.2 CHRONIC ATRIAL FIBRILLATION 08/22/2016 ZENIA MEDINA APRN Ot K62.5 HEMORRHAGE OF ANUS AND RECTUM 08/22/2016 ZENIA MEDINA APRN Ot K64.4 RESIDUAL HEMORRHOIDAL SKIN TAGS 08/22/2016 ZENIA MEDINA APRN Ot K64.8 OTHER HEMORRHOIDS 08/22/2016 ZENIA MEDINA APRN Ot Z79.899 OTHER INSTALLATION AND REPAIR TECHNICIAN (CURRENT) DRUG THERAPY 08/31/2016 ALMA KITCHEN DO Ot E03.9 HYPOTHYROIDISM, UNSPECIFIED 08/31/2016 KATHY KITCHEN DOI Ot E11.9 TYPE 2 DIABETES MELLITUS WITHOUT COMPLIC 08/31/2016 ALMA KITCHEN DO Ot F32.9 MAJOR DEPRESSIVE DISORDER, SINGLE EPISOD 08/31/2016 KATHY KITCHEN DOI Ot F41.9 ANXIETY DISORDER, UNSPECIFIED 08/31/2016 KATHY KITCHEN DOI Ot G47.33 OBSTRUCTIVE SLEEP APNEA (ADULT) (PEDIATR 08/31/2016 KATHY KITCHEN DOI Ot H91.90 UNSPECIFIED HEARING LOSS, UNSPECIFIED EA 08/31/2016 KATHY KITCHEN DOI Ot I25.10 ATHSCL HEART DISEASE OF [place] CORONARY 08/31/2016 ALMA KITCHEN DO Ot I42.9 CARDIOMYOPATHY, UNSPECIFIED 08/31/2016 ALMA KITCHEN DO Ot I48.91 UNSPECIFIED ATRIAL FIBRILLATION 08/31/2016 KAHTY KITCHEN DOI Ot K21.9 GASTRO-ESOPHAGEAL REFLUX DISEASE WITHOUT 08/31/2016 KATHY KITCHEN DOI Ot K62.3 RECTAL PROLAPSE 08/31/2016 ALMA KITCHEN DO Ot K64.2 THIRD DEGREE HEMORRHOIDS 08/31/2016 ALMA KITCHEN DO, Ot K64.9 UNSPECIFIED HEMORRHOIDS 08/31/2016 ALMA KITCHEN DO, Ot M81.0 AGE-RELATED OSTEOPOROSIS W/O CURRENT PAT 08/31/2016 ALMA KITCHEN DO, Ot Z79.01 SNF (CURRENT) USE OF ANTICOAGULANT 09/03/2016 ALAINA IRVING MD, Ot E03.9 HYPOTHYROIDISM, UNSPECIFIED 09/03/2016 ALAINA IRVING MD, Ot E11.9 TYPE 2 DIABETES MELLITUS WITHOUT COMPLIC 09/03/2016 ALAINA IRVING MD, Ot F32.9 MAJOR DEPRESSIVE DISORDER, SINGLE EPISOD 09/03/2016 ALAINA IRVING MD, Ot F41.9 ANXIETY DISORDER, UNSPECIFIED 09/03/2016 ALAINA IRVING MD, Ot G47.33 OBSTRUCTIVE SLEEP APNEA (ADULT) (PEDIATR 09/03/2016 ALAINA IRVING MD, Ot H91.90 UNSPECIFIED HEARING LOSS, UNSPECIFIED EA 09/03/2016 ALAINA IRVING MD, Ot I25.10 ATHSCL HEART DISEASE OF [place] CORONARY 09/03/2016 ALAINA IRVING MD, Ot I42.9 CARDIOMYOPATHY, UNSPECIFIED 09/03/2016 ALAINA IRVING MD, Ot I48.91 UNSPECIFIED ATRIAL FIBRILLATION 09/03/2016 ALAINA IRVING MD, Ot K21.9 GASTRO-ESOPHAGEAL REFLUX DISEASE WITHOUT 09/03/2016 ALAINA IRVING MD, Ot K62.3 RECTAL PROLAPSE 09/03/2016 ALAINA IRVING MD, Ot K64.2 THIRD DEGREE HEMORRHOIDS 09/03/2016 ALAINA IRVING MD, Ot M81.0 AGE-RELATED OSTEOPOROSIS W/O CURRENT PAT 09/03/2016 ALAINA IRVING MD, Ot Z79.01 INSTALLATION AND REPAIR TECHNICIAN (CURRENT) USE OF ANTICOAGULANT Procedures Code Description Performed By Performed On 45.13 04/04/2013 44.43 07/29/2014 [id number] EXCISION OF ESOPHAGOGASTRIC JUNCTION, EN 08/11/2016 [id number] EXCISION OF STOMACH, PYLORUS, ENDO, DIAG 08/11/2016 [id number] INSPECTION OF LOWER INTESTINAL TRACT, EN 08/11/2016 Results Test Result Range Complete blood count (CBC) with automated white blood cell (WBC) differential - 01/12/16 22:45 Blood leukocytes automated count (number/volume) 10.2 10*3/ uL 4.3-11.0 Blood erythrocytes automated count (number/volume) 5.44 10*6 /uL 4.35-5.85 Venous blood hemoglobin measurement (mass/volume) 13.1 g/dL 11.5-16.0 Blood hematocrit (volume fraction) 41 % 35-52 Automated erythrocyte mean corpuscular volume 74 [foz_us] 80-99 Automated erythrocyte mean corpuscular hemoglobin (mass per erythrocyte) 24 pg 25-34 Automated erythrocyte mean corpuscular hemoglobin concentration measurement ( mass/volume) 32 g/dL 32-36 Automated erythrocyte distribution width ratio 18.8 % 10.0-14.5 Automated blood platelet count (count/volume) 294 10*3/uL 130-400 Automated blood platelet mean volume measurement 10.6 [foz_ us] 7.4-10.4 Automated blood neutrophils/100 leukocytes 73 % 42-75 Automated blood lymphocytes/100 leukocytes 16 % 12-44 Blood monocytes/100 leukocytes 7 % 0-12 Automated blood eosinophils/100 leukocytes 4 % 0-10 Automated blood basophils/100 leukocytes 1 % 0-10 Blood neutrophils automated count (number/volume) 7.4 10*3 1.8-7.8 Blood lymphocytes automated count (number/volume) 1.6 10*3 1.0-4.0 Blood monocytes automated count (number/volume) 0.7 10*3 0.0-1.0 Automated eosinophil count 0.4 10*3/uL 0.0-0.3 Automated blood basophil count (count/volume) 0.1 10*3/uL 0.0-0.1 Comprehensive metabolic panel - 01/12/16 22:45 Serum or plasma sodium measurement (moles/volume) 142 mmol/ L 135-145 Serum or plasma potassium measurement (moles/volume) 3.9 mmol/L 3.6-5.0 Serum or plasma chloride measurement (moles/volume) 109 mmol /L 98-107 Carbon dioxide 19 mmol/L 21-32 Serum or plasma anion gap determination (moles/volume) 14 mmol/L 5-14 Serum or plasma urea nitrogen measurement (mass/volume) 11 mg/dL 7-18 Serum or plasma creatinine measurement (mass/volume) 0.83 mg /dL 0.60-1.30 Serum or plasma urea nitrogen/creatinine mass ratio 13 NRG Serum or plasma creatinine measurement with calculation of estimated glomerular filtration rate > NRG Serum or plasma glucose measurement (mass/volume) 166 mg/dL 70-105 Serum or plasma calcium measurement (mass/volume) 9.5 mg/dL 8.5-10.1 Serum or plasma total bilirubin measurement (mass/volume) 0.7 mg/dL 0.1-1.0 Serum or plasma alkaline phosphatase measurement (enzymatic activity/volume) 126 U/L 40-136 Serum or plasma aspartate aminotransferase measurement (enzymatic activity/ volume) 16 U/L 5-34 Serum or plasma alanine aminotransferase measurement (enzymatic activity/volume ) 15 U/L 0-55 Serum or plasma protein measurement (mass/volume) 7.3 g/dL 6.4-8.2 Serum or plasma albumin measurement (mass/volume) 4.1 g/dL 3.2-4.5 Lipase - 01/12/16 22:45 Lipase 36 U/L 8-78 Complete blood count (CBC) with automated white blood cell (WBC) differential - 02/13/16 20:35 Blood leukocytes automated count (number/volume) 5.8 10*3/ uL 4.3-11.0 Blood erythrocytes automated count (number/volume) 4.87 10*6 /uL 4.35-5.85 Venous blood hemoglobin measurement (mass/volume) 12.0 g/dL 11.5-16.0 Blood hematocrit (volume fraction) 37 % 35-52 Automated erythrocyte mean corpuscular volume 76 [foz_us] 80-99 Automated erythrocyte mean corpuscular hemoglobin (mass per erythrocyte) 25 pg 25-34 Automated erythrocyte mean corpuscular hemoglobin concentration measurement ( mass/volume) 32 g/dL 32-36 Automated erythrocyte distribution width ratio 16.5 % 10.0-14.5 Automated blood platelet count (count/volume) 223 10*3/uL 130-400 Automated blood platelet mean volume measurement 10.5 [foz_ us] 7.4-10.4 Automated blood neutrophils/100 leukocytes 60 % 42-75 Automated blood lymphocytes/100 leukocytes 25 % 12-44 Blood monocytes/100 leukocytes 8 % 0-12 Automated blood eosinophils/100 leukocytes 6 % 0-10 Automated blood basophils/100 leukocytes 1 % 0-10 Blood neutrophils automated count (number/volume) 3.5 10*3 1.8-7.8 Blood lymphocytes automated count (number/volume) 1.5 10*3 1.0-4.0 Blood monocytes automated count (number/volume) 0.4 10*3 0.0-1.0 Automated eosinophil count 0.3 10*3/uL 0.0-0.3 Automated blood basophil count (count/volume) 0.1 10*3/uL 0.0-0.1 PT panel in platelet poor plasma by coagulation assay - 02/13/16 20:35 Prothrombin time (PT) in platelet poor plasma by coagulation assay 13.2 s 12.2-14.7 INR in platelet poor plasma or blood by coagulation assay 1.0 0.8-1.4 Activated partial thromboplastin time (aPTT) in platelet poor plasma bycoagulation assay - 02/13/16 20:35 Activated partial thromboplastin time (aPTT) in platelet poor plasma bycoagulation assay 32 s 24-35 Comprehensive metabolic panel - 02/13/16 20:35 Serum or plasma sodium measurement (moles/volume) 140 mmol/ L 135-145 Serum or plasma potassium measurement (moles/volume) 3.6 mmol/L 3.6-5.0 Serum or plasma chloride measurement (moles/volume) 108 mmol /L 98-107 Carbon dioxide 17 mmol/L 21-32 Serum or plasma anion gap determination (moles/volume) 15 mmol/L 5-14 Serum or plasma urea nitrogen measurement (mass/volume) 11 mg/dL 7-18 Serum or plasma creatinine measurement (mass/volume) 0.81 mg /dL 0.60-1.30 Serum or plasma urea nitrogen/creatinine mass ratio 14 NRG Serum or plasma creatinine measurement with calculation of estimated glomerular filtration rate > NRG Serum or plasma glucose measurement (mass/volume) 184 mg/dL 70-105 Serum or plasma calcium measurement (mass/volume) 9.3 mg/dL 8.5-10.1 Serum or plasma total bilirubin measurement (mass/volume) 0.5 mg/dL 0.1-1.0 Serum or plasma alkaline phosphatase measurement (enzymatic activity/volume) 109 U/L 40-136 Serum or plasma aspartate aminotransferase measurement (enzymatic activity/ volume) 15 U/L 5-34 Serum or plasma alanine aminotransferase measurement (enzymatic activity/volume ) 10 U/L 0-55 Serum or plasma protein measurement (mass/volume) 7.0 g/dL 6.4-8.2 Serum or plasma albumin measurement (mass/volume) 4.0 g/dL 3.2-4.5 Magnesium - 02/13/16 20:35 Magnesium 2.3 mg/dL 1.8-2.4 Serum or plasma troponin i.cardiac measurement (mass/volume) - 02/13/16 20:35 Serum or plasma troponin i.cardiac measurement (mass/volume) < ng/mL <0.30 Myoglobin, serum - 02/13/16 20:35 Myoglobin, serum 20.2 ng/mL 10.0-92.0 Serum or plasma thyrotropin measurement by detection limit <=0.05 miu/l (units/ volume) - 02/13/16 20:35 Serum or plasma thyrotropin measurement by detection limit <=0.05 miu/l (units/ volume) 1.64 u[iU]/mL 0.35-4.94 Complete urinalysis with reflex to culture - 02/13/16 22:40 Urine color determination YELLOW NRG Urine clarity determination CLEAR NRG Urine pH measurement by test strip 8 5- 9 Specific gravity of urine by test strip 1.015 1.016-1.022 Urine protein assay by test strip, semi-quantitative NEGATIVE NEGATIVE Urine glucose detection by automated test strip 1+ NEGATIVE Erythrocytes detection in urine sediment by light microscopy NEGATIVE NEGATIVE Urine ketones detection by automated test strip NEGATIVE NEGATIVE Urine nitrite detection by test strip NEGATIVE NEGATIVE Urine total bilirubin detection by test strip NEGATIVE NEGATIVE Urine urobilinogen measurement by automated test strip (mass/volume) NORMAL NORMAL Urine leukocyte esterase detection by dipstick 1+ NEGATIVE Automated urine sediment erythrocyte count by microscopy (number/high power field) NONE NRG Automated urine sediment leukocyte count by microscopy (number/high power field ) RARE NRG Bacteria detection in urine sediment by light microscopy NEGATIVE NRG Squamous epithelial cells detection in urine sediment by light microscopy 2-5 NRG Crystals detection in urine sediment by light microscopy NONE NRG Casts detection in urine sediment by light microscopy NONE NRG Mucus detection in urine sediment by light microscopy NEGATIVE NRG Complete urinalysis with reflex to culture NO NRG Complete blood count (CBC) with automated white blood cell (WBC) differential - 02/14/16 02:36 Blood leukocytes automated count (number/volume) 8.4 10*3/ uL 4.3-11.0 Blood erythrocytes automated count (number/volume) 4.72 10*6 /uL 4.35-5.85 Venous blood hemoglobin measurement (mass/volume) 11.6 g/dL 11.5-16.0 Blood hematocrit (volume fraction) 36 % 35-52 Automated erythrocyte mean corpuscular volume 76 [foz_us] 80-99 Automated erythrocyte mean corpuscular hemoglobin (mass per erythrocyte) 25 pg 25-34 Automated erythrocyte mean corpuscular hemoglobin concentration measurement ( mass/volume) 32 g/dL 32-36 Automated erythrocyte distribution width ratio 16.5 % 10.0-14.5 Automated blood platelet count (count/volume) 226 10*3/uL 130-400 Automated blood platelet mean volume measurement 10.4 [foz_ us] 7.4-10.4 Automated blood neutrophils/100 leukocytes 75 % 42-75 Automated blood lymphocytes/100 leukocytes 15 % 12-44 Blood monocytes/100 leukocytes 6 % 0-12 Automated blood eosinophils/100 leukocytes 3 % 0-10 Automated blood basophils/100 leukocytes 1 % 0-10 Blood neutrophils automated count (number/volume) 6.3 10*3 1.8-7.8 Blood lymphocytes automated count (number/volume) 1.3 10*3 1.0-4.0 Blood monocytes automated count (number/volume) 0.5 10*3 0.0-1.0 Automated eosinophil count 0.3 10*3/uL 0.0-0.3 Automated blood basophil count (count/volume) 0.1 10*3/uL 0.0-0.1 Serum or plasma troponin i.cardiac measurement (mass/volume) - 02/14/16 02:36 Serum or plasma troponin i.cardiac measurement (mass/volume) < ng/mL <0.30 Serum or plasma troponin i.cardiac measurement (mass/volume) - 02/14/16 02:36 Serum or plasma troponin i.cardiac measurement (mass/volume) < ng/mL <0.30 Comprehensive metabolic panel - 02/14/16 02:36 Serum or plasma sodium measurement (moles/volume) 140 mmol/ L 135-145 Serum or plasma potassium measurement (moles/volume) 3.8 mmol/L 3.6-5.0 Serum or plasma chloride measurement (moles/volume) 109 mmol /L 98-107 Carbon dioxide 16 mmol/L 21-32 Serum or plasma anion gap determination (moles/volume) 15 mmol/L 5-14 Serum or plasma urea nitrogen measurement (mass/volume) 11 mg/dL 7-18 Serum or plasma creatinine measurement (mass/volume) 0.75 mg /dL 0.60-1.30 Serum or plasma urea nitrogen/creatinine mass ratio 15 NRG Serum or plasma creatinine measurement with calculation of estimated glomerular filtration rate > NRG Serum or plasma glucose measurement (mass/volume) 172 mg/dL 70-105 Serum or plasma calcium measurement (mass/volume) 8.8 mg/dL 8.5-10.1 Serum or plasma total bilirubin measurement (mass/volume) 0.5 mg/dL 0.1-1.0 Serum or plasma alkaline phosphatase measurement (enzymatic activity/volume) 103 U/L 40-136 Serum or plasma aspartate aminotransferase measurement (enzymatic activity/ volume) 14 U/L 5-34 Serum or plasma alanine aminotransferase measurement (enzymatic activity/volume ) 10 U/L 0-55 Serum or plasma protein measurement (mass/volume) 6.2 g/dL 6.4-8.2 Serum or plasma albumin measurement (mass/volume) 3.7 g/dL 3.2-4.5 Lipid 1996 panel - 02/14/16 02:36 Serum or plasma triglyceride measurement (mass/volume) 128 mg/dL <150 Serum or plasma cholesterol measurement (mass/volume) 180 mg /dL < 200 Serum or plasma cholesterol in HDL measurement (mass/volume) 40 mg/dL 40-60 Cholesterol in LDL [mass/volume] in serum or plasma by direct assay 121 mg/dL 1-129 Serum or plasma cholesterol in VLDL measurement (mass/volume) 26 mg/dL 5-40 Capillary blood glucose measurement by glucometer (mass/volume) - 02/14/16 08: 13 Capillary blood glucose measurement by glucometer (mass/volume) 124 mg/dL 70-110 Capillary blood glucose measurement by glucometer (mass/volume) - 02/14/16 12: 17 Capillary blood glucose measurement by glucometer (mass/volume) 177 mg/dL 70-110 Capillary blood glucose measurement by glucometer (mass/volume) - 02/14/16 22: 07 Capillary blood glucose measurement by glucometer (mass/volume) 155 mg/dL 70-110 Capillary blood glucose measurement by glucometer (mass/volume) - 02/15/16 06: 57 Capillary blood glucose measurement by glucometer (mass/volume) 129 mg/dL 70-110 Whole blood basic metabolic panel - 02/15/16 07:05 Serum or plasma sodium measurement (moles/volume) 140 mmol/ L 135-145 Serum or plasma potassium measurement (moles/volume) 3.9 mmol/L 3.6-5.0 Serum or plasma chloride measurement (moles/volume) 108 mmol /L 98-107 Carbon dioxide 20 mmol/L 21-32 Serum or plasma anion gap determination (moles/volume) 12 mmol/L 5-14 Serum or plasma urea nitrogen measurement (mass/volume) 15 mg/dL 7-18 Serum or plasma creatinine measurement (mass/volume) 0.87 mg /dL 0.60-1.30 Serum or plasma urea nitrogen/creatinine mass ratio 17 NRG Serum or plasma creatinine measurement with calculation of estimated glomerular filtration rate > NRG Serum or plasma glucose measurement (mass/volume) 175 mg/dL 70-105 Serum or plasma calcium measurement (mass/volume) 9.3 mg/dL 8.5-10.1 Serum or plasma phosphate measurement (mass/volume) - 02/15/16 07:05 Serum or plasma phosphate measurement (mass/volume) 2.6 mg/ dL 2.3-4.7 Magnesium - 02/15/16 07:05 Magnesium 2.4 mg/dL 1.8-2.4 Complete blood count (CBC) with automated white blood cell (WBC) differential - 02/15/16 07:40 Blood leukocytes automated count (number/volume) 5.2 10*3/ uL 4.3-11.0 Blood erythrocytes automated count (number/volume) 4.95 10*6 /uL 4.35-5.85 Venous blood hemoglobin measurement (mass/volume) 12.1 g/dL 11.5-16.0 Blood hematocrit (volume fraction) 38 % 35-52 Automated erythrocyte mean corpuscular volume 78 [foz_us] 80-99 Automated erythrocyte mean corpuscular hemoglobin (mass per erythrocyte) 24 pg 25-34 Automated erythrocyte mean corpuscular hemoglobin concentration measurement ( mass/volume) 32 g/dL 32-36 Automated erythrocyte distribution width ratio 16.9 % 10.0-14.5 Automated blood platelet count (count/volume) 239 10*3/uL 130-400 Automated blood platelet mean volume measurement 10.5 [foz_ us] 7.4-10.4 Automated blood neutrophils/100 leukocytes 57 % 42-75 Automated blood lymphocytes/100 leukocytes 27 % 12-44 Blood monocytes/100 leukocytes 10 % 0-12 Automated blood eosinophils/100 leukocytes 5 % 0-10 Automated blood basophils/100 leukocytes 1 % 0-10 Blood neutrophils automated count (number/volume) 2.9 10*3 1.8-7.8 Blood lymphocytes automated count (number/volume) 1.4 10*3 1.0-4.0 Blood monocytes automated count (number/volume) 0.5 10*3 0.0-1.0 Automated eosinophil count 0.3 10*3/uL 0.0-0.3 Automated blood basophil count (count/volume) 0.1 10*3/uL 0.0-0.1 Complete blood count (CBC) with automated white blood cell (WBC) differential - 08/09/16 20:20 Blood leukocytes automated count (number/volume) 5.8 10*3/ uL 4.3-11.0 Blood erythrocytes automated count (number/volume) 5.05 10*6 /uL 4.35-5.85 Venous blood hemoglobin measurement (mass/volume) 13.0 g/dL 11.5-16.0 Blood hematocrit (volume fraction) 40 % 35-52 Automated erythrocyte mean corpuscular volume 79 [foz_us] 80-99 Automated erythrocyte mean corpuscular hemoglobin (mass per erythrocyte) 26 pg 25-34 Automated erythrocyte mean corpuscular hemoglobin concentration measurement ( mass/volume) 33 g/dL 32-36 Automated erythrocyte distribution width ratio 16.3 % 10.0-14.5 Automated blood platelet count (count/volume) 302 10*3/uL 130-400 Automated blood platelet mean volume measurement 10.0 [foz_ us] 7.4-10.4 Automated blood neutrophils/100 leukocytes 58 % 42-75 Automated blood lymphocytes/100 leukocytes 26 % 12-44 Blood monocytes/100 leukocytes 9 % 0-12 Automated blood eosinophils/100 leukocytes 5 % 0-10 Automated blood basophils/100 leukocytes 1 % 0-10 Blood neutrophils automated count (number/volume) 3.3 10*3 1.8-7.8 Blood lymphocytes automated count (number/volume) 1.5 10*3 1.0-4.0 Blood monocytes automated count (number/volume) 0.5 10*3 0.0-1.0 Automated eosinophil count 0.3 10*3/uL 0.0-0.3 Automated blood basophil count (count/volume) 0.1 10*3/uL 0.0-0.1 PT panel in platelet poor plasma by coagulation assay - 08/09/16 20:20 Prothrombin time (PT) in platelet poor plasma by coagulation assay 38.5 s 12.2-14.7 INR in platelet poor plasma or blood by coagulation assay 3.9 0.8-1.4 Activated partial thromboplastin time (aPTT) in platelet poor plasma bycoagulation assay - 08/09/16 20:20 Activated partial thromboplastin time (aPTT) in platelet poor plasma bycoagulation assay 54 s 24-35 Comprehensive metabolic panel - 08/09/16 20:20 Serum or plasma sodium measurement (moles/volume) 142 mmol/ L 135-145 Serum or plasma potassium measurement (moles/volume) 4.2 mmol/L 3.6-5.0 Serum or plasma chloride measurement (moles/volume) 108 mmol /L 98-107 Carbon dioxide 23 mmol/L 21-32 Serum or plasma anion gap determination (moles/volume) 11 mmol/L 5-14 Serum or plasma urea nitrogen measurement (mass/volume) 19 mg/dL 7-18 Serum or plasma creatinine measurement (mass/volume) 0.99 mg /dL 0.60-1.30 Serum or plasma urea nitrogen/creatinine mass ratio 19 NRG Serum or plasma creatinine measurement with calculation of estimated glomerular filtration rate 54 NRG Serum or plasma glucose measurement (mass/volume) 112 mg/dL 70-105 Serum or plasma calcium measurement (mass/volume) 9.5 mg/dL 8.5-10.1 Serum or plasma total bilirubin measurement (mass/volume) 0.6 mg/dL 0.1-1.0 Serum or plasma alkaline phosphatase measurement (enzymatic activity/volume) 128 U/L 40-136 Serum or plasma aspartate aminotransferase measurement (enzymatic activity/ volume) 18 U/L 5-34 Serum or plasma alanine aminotransferase measurement (enzymatic activity/volume ) 15 U/L 0-55 Serum or plasma protein measurement (mass/volume) 7.8 g/dL 6.4-8.2 Serum or plasma albumin measurement (mass/volume) 4.2 g/dL 3.2-4.5 Blood type T Indirect antibody screen panel - 08/09/16 22:12 ABO+Rh group OP NRG Transfusion band number [id number] NR Blood group antibody screen NEGATIVE NR Methicillin resistant Staphylococcus aureus (MRSA) screening culture - 23:00 Methicillin resistant Staphylococcus aureus (MRSA) screening culture NEG NR Whole blood hemoglobin and hematocrit panel - 08/10/16 00:18 Venous blood hemoglobin measurement (mass/volume) 11.2 g/dL 11.5-16.0 Blood hematocrit (volume fraction) 35 % 35-52 Complete blood count (CBC) with automated white blood cell (WBC) differential - 08/10/16 04:12 Blood leukocytes automated count (number/volume) 6.9 10*3/ uL 4.3-11.0 Blood erythrocytes automated count (number/volume) 4.32 10*6 /uL 4.35-5.85 Venous blood hemoglobin measurement (mass/volume) 11.0 g/dL 11.5-16.0 Blood hematocrit (volume fraction) 35 % 35-52 Automated erythrocyte mean corpuscular volume 81 [foz_us] 80-99 Automated erythrocyte mean corpuscular hemoglobin (mass per erythrocyte) 26 pg 25-34 Automated erythrocyte mean corpuscular hemoglobin concentration measurement ( mass/volume) 32 g/dL 32-36 Automated erythrocyte distribution width ratio 16.2 % 10.0-14.5 Automated blood platelet count (count/volume) 238 10*3/uL 130-400 Automated blood platelet mean volume measurement 10.2 [foz_ us] 7.4-10.4 Automated blood neutrophils/100 leukocytes 77 % 42-75 Automated blood lymphocytes/100 leukocytes 14 % 12-44 Blood monocytes/100 leukocytes 6 % 0-12 Automated blood eosinophils/100 leukocytes 2 % 0-10 Automated blood basophils/100 leukocytes 1 % 0-10 Blood neutrophils automated count (number/volume) 5.3 10*3 1.8-7.8 Blood lymphocytes automated count (number/volume) 0.9 10*3 1.0-4.0 Blood monocytes automated count (number/volume) 0.4 10*3 0.0-1.0 Automated eosinophil count 0.1 10*3/uL 0.0-0.3 Automated blood basophil count (count/volume) 0.0 10*3/uL 0.0-0.1 PT panel in platelet poor plasma by coagulation assay - 08/10/16 04:12 Prothrombin time (PT) in platelet poor plasma by coagulation assay 28.4 s 12.2-14.7 INR in platelet poor plasma or blood by coagulation assay 2.7 0.8-1.4 Activated partial thromboplastin time (aPTT) in platelet poor plasma bycoagulation assay - 08/10/16 04:12 Activated partial thromboplastin time (aPTT) in platelet poor plasma bycoagulation assay 43 s 24-35 Comprehensive metabolic panel - 08/10/16 04:12 Serum or plasma sodium measurement (moles/volume) 140 mmol/ L 135-145 Serum or plasma potassium measurement (moles/volume) 4.3 mmol/L 3.6-5.0 Serum or plasma chloride measurement (moles/volume) 110 mmol /L 98-107 Carbon dioxide 21 mmol/L 21-32 Serum or plasma anion gap determination (moles/volume) 9 mmol/L 5-14 Serum or plasma urea nitrogen measurement (mass/volume) 16 mg/dL 7-18 Serum or plasma creatinine measurement (mass/volume) 0.82 mg /dL 0.60-1.30 Serum or plasma urea nitrogen/creatinine mass ratio 20 NRG Serum or plasma creatinine measurement with calculation of estimated glomerular filtration rate > NRG Serum or plasma glucose measurement (mass/volume) 157 mg/dL 70-105 Serum or plasma calcium measurement (mass/volume) 8.3 mg/dL 8.5-10.1 Serum or plasma total bilirubin measurement (mass/volume) 0.7 mg/dL 0.1-1.0 Serum or plasma alkaline phosphatase measurement (enzymatic activity/volume) 109 U/L 40-136 Serum or plasma aspartate aminotransferase measurement (enzymatic activity/ volume) 15 U/L 5-34 Serum or plasma alanine aminotransferase measurement (enzymatic activity/volume ) 13 U/L 0-55 Serum or plasma protein measurement (mass/volume) 6.4 g/dL 6.4-8.2 Serum or plasma albumin measurement (mass/volume) 3.5 g/dL 3.2-4.5 Serum or plasma phosphate measurement (mass/volume) - 08/10/16 04:12 Serum or plasma phosphate measurement (mass/volume) 3.1 mg/ dL 2.3-4.7 Magnesium - 08/10/16 04:12 Magnesium 2.0 mg/dL 1.8-2.4 Capillary blood glucose measurement by glucometer (mass/volume) - 08/10/16 07: 27 Capillary blood glucose measurement by glucometer (mass/volume) 175 mg/dL 70-110 Whole blood hemoglobin and hematocrit panel - 08/10/16 11:55 Venous blood hemoglobin measurement (mass/volume) 10.6 g/dL 11.5-16.0 Blood hematocrit (volume fraction) 33 % 35-52 Capillary blood glucose measurement by glucometer (mass/volume) - 08/10/16 12: 40 Capillary blood glucose measurement by glucometer (mass/volume) 136 mg/dL 70-110 Whole blood hemoglobin and hematocrit panel - 08/10/16 18:30 Venous blood hemoglobin measurement (mass/volume) 11.3 g/dL 11.5-16.0 Blood hematocrit (volume fraction) 35 % 35-52 Capillary blood glucose measurement by glucometer (mass/volume) - 08/10/16 19: 43 Capillary blood glucose measurement by glucometer (mass/volume) 154 mg/dL 70-110 Whole blood hemoglobin and hematocrit panel - 08/10/16 23:40 Venous blood hemoglobin measurement (mass/volume) 10.5 g/dL 11.5-16.0 Blood hematocrit (volume fraction) 33 % 35-52 Complete blood count (CBC) with automated white blood cell (WBC) differential - 08/11/16 05:25 Blood leukocytes automated count (number/volume) 5.5 10*3/ uL 4.3-11.0 Blood erythrocytes automated count (number/volume) 4.05 10*6 /uL 4.35-5.85 Venous blood hemoglobin measurement (mass/volume) 10.6 g/dL 11.5-16.0 Blood hematocrit (volume fraction) 33 % 35-52 Automated erythrocyte mean corpuscular volume 81 [foz_us] 80-99 Automated erythrocyte mean corpuscular hemoglobin (mass per erythrocyte) 26 pg 25-34 Automated erythrocyte mean corpuscular hemoglobin concentration measurement ( mass/volume) 33 g/dL 32-36 Automated erythrocyte distribution width ratio 15.9 % 10.0-14.5 Automated blood platelet count (count/volume) 257 10*3/uL 130-400 Automated blood platelet mean volume measurement 9.8 [foz_us ] 7.4-10.4 Automated blood neutrophils/100 leukocytes 61 % 42-75 Automated blood lymphocytes/100 leukocytes 24 % 12-44 Blood monocytes/100 leukocytes 9 % 0-12 Automated blood eosinophils/100 leukocytes 5 % 0-10 Automated blood basophils/100 leukocytes 2 % 0-10 Blood neutrophils automated count (number/volume) 3.3 10*3 1.8-7.8 Blood lymphocytes automated count (number/volume) 1.3 10*3 1.0-4.0 Blood monocytes automated count (number/volume) 0.5 10*3 0.0-1.0 Automated eosinophil count 0.3 10*3/uL 0.0-0.3 Automated blood basophil count (count/volume) 0.1 10*3/uL 0.0-0.1 Whole blood basic metabolic panel - 08/11/16 05:25 Serum or plasma sodium measurement (moles/volume) 140 mmol/ L 135-145 Serum or plasma potassium measurement (moles/volume) 4.2 mmol/L 3.6-5.0 Serum or plasma chloride measurement (moles/volume) 109 mmol /L 98-107 Carbon dioxide 24 mmol/L 21-32 Serum or plasma anion gap determination (moles/volume) 7 mmol/L 5-14 Serum or plasma urea nitrogen measurement (mass/volume) 10 mg/dL 7-18 Serum or plasma creatinine measurement (mass/volume) 0.80 mg /dL 0.60-1.30 Serum or plasma urea nitrogen/creatinine mass ratio 13 NRG Serum or plasma creatinine measurement with calculation of estimated glomerular filtration rate > NRG Serum or plasma glucose measurement (mass/volume) 130 mg/dL 70-105 Serum or plasma calcium measurement (mass/volume) 8.2 mg/dL 8.5-10.1 Serum or plasma phosphate measurement (mass/volume) - 08/11/16 05:25 Serum or plasma phosphate measurement (mass/volume) 2.0 mg/ dL 2.3-4.7 Magnesium - 08/11/16 05:25 Magnesium 2.6 mg/dL 1.8-2.4 Whole blood hemoglobin and hematocrit panel - 08/11/16 12:04 Venous blood hemoglobin measurement (mass/volume) 10.9 g/dL 11.5-16.0 Blood hematocrit (volume fraction) 34 % 35-52 Capillary blood glucose measurement by glucometer (mass/volume) - 08/11/16 16: 07 Capillary blood glucose measurement by glucometer (mass/volume) 105 mg/dL 70-110 Whole blood hemoglobin and hematocrit panel - 08/11/16 16:34 Venous blood hemoglobin measurement (mass/volume) 11.2 g/dL 11.5-16.0 Blood hematocrit (volume fraction) 36 % 35-52 Capillary blood glucose measurement by glucometer (mass/volume) - 08/11/16 20: 56 Capillary blood glucose measurement by glucometer (mass/volume) 122 mg/dL 70-110 Complete blood count (CBC) with automated white blood cell (WBC) differential - 08/12/16 06:06 Blood leukocytes automated count (number/volume) 6.4 10*3/ uL 4.3-11.0 Blood erythrocytes automated count (number/volume) 4.18 10*6 /uL 4.35-5.85 Venous blood hemoglobin measurement (mass/volume) 10.9 g/dL 11.5-16.0 Blood hematocrit (volume fraction) 34 % 35-52 Automated erythrocyte mean corpuscular volume 81 [foz_us] 80-99 Automated erythrocyte mean corpuscular hemoglobin (mass per erythrocyte) 26 pg 25-34 Automated erythrocyte mean corpuscular hemoglobin concentration measurement ( mass/volume) 32 g/dL 32-36 Automated erythrocyte distribution width ratio 15.8 % 10.0-14.5 Automated blood platelet count (count/volume) 246 10*3/uL 130-400 Automated blood platelet mean volume measurement 10.1 [foz_ us] 7.4-10.4 Automated blood neutrophils/100 leukocytes 64 % 42-75 Automated blood lymphocytes/100 leukocytes 20 % 12-44 Blood monocytes/100 leukocytes 9 % 0-12 Automated blood eosinophils/100 leukocytes 6 % 0-10 Automated blood basophils/100 leukocytes 1 % 0-10 Blood neutrophils automated count (number/volume) 4.1 10*3 1.8-7.8 Blood lymphocytes automated count (number/volume) 1.3 10*3 1.0-4.0 Blood monocytes automated count (number/volume) 0.6 10*3 0.0-1.0 Automated eosinophil count 0.4 10*3/uL 0.0-0.3 Automated blood basophil count (count/volume) 0.1 10*3/uL 0.0-0.1 Whole blood basic metabolic panel - 08/12/16 06:06 Serum or plasma sodium measurement (moles/volume) 139 mmol/ L 135-145 Serum or plasma potassium measurement (moles/volume) 3.9 mmol/L 3.6-5.0 Serum or plasma chloride measurement (moles/volume) 109 mmol /L 98-107 Carbon dioxide 21 mmol/L 21-32 Serum or plasma anion gap determination (moles/volume) 9 mmol/L 5-14 Serum or plasma urea nitrogen measurement (mass/volume) 10 mg/dL 7-18 Serum or plasma creatinine measurement (mass/volume) 0.79 mg /dL 0.60-1.30 Serum or plasma urea nitrogen/creatinine mass ratio 13 NRG Serum or plasma creatinine measurement with calculation of estimated glomerular filtration rate > NRG Serum or plasma glucose measurement (mass/volume) 121 mg/dL 70-105 Serum or plasma calcium measurement (mass/volume) 8.2 mg/dL 8.5-10.1 Serum or plasma phosphate measurement (mass/volume) - 08/12/16 06:06 Serum or plasma phosphate measurement (mass/volume) 2.0 mg/ dL 2.3-4.7 Magnesium - 08/12/16 06:06 Magnesium 2.6 mg/dL 1.8-2.4 Capillary blood glucose measurement by glucometer (mass/volume) - 08/12/16 06: 46 Capillary blood glucose measurement by glucometer (mass/volume) 132 mg/dL 70-110 Capillary blood glucose measurement by glucometer (mass/volume) - 08/12/16 10: 39 Capillary blood glucose measurement by glucometer (mass/volume) 118 mg/dL 70-110 Venous blood hemoglobin measurement (mass/volume) - 08/12/16 13:18 Venous blood hemoglobin measurement (mass/volume) 10.5 g/dL 11.5-16.0 Blood hematocrit (volume fraction) - 08/12/16 13:18 Blood hematocrit (volume fraction) 33 % 35-52 Complete blood count (CBC) with automated white blood cell (WBC) differential - 08/22/16 22:10 Blood leukocytes automated count (number/volume) 6.0 10*3/ uL 4.3-11.0 Blood erythrocytes automated count (number/volume) 4.08 10*6 /uL 4.35-5.85 Venous blood hemoglobin measurement (mass/volume) 10.1 g/dL 11.5-16.0 Blood hematocrit (volume fraction) 33 % 35-52 Automated erythrocyte mean corpuscular volume 80 [foz_us] 80-99 Automated erythrocyte mean corpuscular hemoglobin (mass per erythrocyte) 25 pg 25-34 Automated erythrocyte mean corpuscular hemoglobin concentration measurement ( mass/volume) 31 g/dL 32-36 Automated erythrocyte distribution width ratio 15.8 % 10.0-14.5 Automated blood platelet count (count/volume) 299 10*3/uL 130-400 Automated blood platelet mean volume measurement 9.7 [foz_us ] 7.4-10.4 Automated blood neutrophils/100 leukocytes 61 % 42-75 Automated blood lymphocytes/100 leukocytes 24 % 12-44 Blood monocytes/100 leukocytes 10 % 0-12 Automated blood eosinophils/100 leukocytes 4 % 0-10 Automated blood basophils/100 leukocytes 1 % 0-10 Blood neutrophils automated count (number/volume) 3.7 10*3 1.8-7.8 Blood lymphocytes automated count (number/volume) 1.4 10*3 1.0-4.0 Blood monocytes automated count (number/volume) 0.6 10*3 0.0-1.0 Automated eosinophil count 0.2 10*3/uL 0.0-0.3 Automated blood basophil count (count/volume) 0.1 10*3/uL 0.0-0.1 Comprehensive metabolic panel - 08/22/16 22:10 Serum or plasma sodium measurement (moles/volume) 141 mmol/ L 135-145 Serum or plasma potassium measurement (moles/volume) 4.2 mmol/L 3.6-5.0 Serum or plasma chloride measurement (moles/volume) 109 mmol /L 98-107 Carbon dioxide 21 mmol/L 21-32 Serum or plasma anion gap determination (moles/volume) 11 mmol/L 5-14 Serum or plasma urea nitrogen measurement (mass/volume) 17 mg/dL 7-18 Serum or plasma creatinine measurement (mass/volume) 0.92 mg /dL 0.60-1.30 Serum or plasma urea nitrogen/creatinine mass ratio 18 NRG Serum or plasma creatinine measurement with calculation of estimated glomerular filtration rate 59 NRG Serum or plasma glucose measurement (mass/volume) 124 mg/dL 70-105 Serum or plasma calcium measurement (mass/volume) 9.2 mg/dL 8.5-10.1 Serum or plasma total bilirubin measurement (mass/volume) 0.6 mg/dL 0.1-1.0 Serum or plasma alkaline phosphatase measurement (enzymatic activity/volume) 96 U/L 40-136 Serum or plasma aspartate aminotransferase measurement (enzymatic activity/ volume) 14 U/L 5-34 Serum or plasma alanine aminotransferase measurement (enzymatic activity/volume ) 11 U/L 0-55 Serum or plasma protein measurement (mass/volume) 6.8 g/dL 6.4-8.2 Serum or plasma albumin measurement (mass/volume) 3.9 g/dL 3.2-4.5 Complete blood count (CBC) with automated white blood cell (WBC) differential - 08/26/16 19:37 Blood leukocytes automated count (number/volume) 5.5 10*3/ uL 4.3-11.0 Blood erythrocytes automated count (number/volume) 3.52 10*6 /uL 4.35-5.85 Venous blood hemoglobin measurement (mass/volume) 8.8 g/dL 11.5-16.0 Blood hematocrit (volume fraction) 28 % 35-52 Automated erythrocyte mean corpuscular volume 80 [foz_us] 80-99 Automated erythrocyte mean corpuscular hemoglobin (mass per erythrocyte) 25 pg 25-34 Automated erythrocyte mean corpuscular hemoglobin concentration measurement ( mass/volume) 31 g/dL 32-36 Automated erythrocyte distribution width ratio 15.6 % 10.0-14.5 Automated blood platelet count (count/volume) 296 10*3/uL 130-400 Automated blood platelet mean volume measurement 9.5 [foz_us ] 7.4-10.4 Automated blood neutrophils/100 leukocytes 62 % 42-75 Automated blood lymphocytes/100 leukocytes 23 % 12-44 Blood monocytes/100 leukocytes 10 % 0-12 Automated blood eosinophils/100 leukocytes 4 % 0-10 Automated blood basophils/100 leukocytes 1 % 0-10 Blood neutrophils automated count (number/volume) 3.4 10*3 1.8-7.8 Blood lymphocytes automated count (number/volume) 1.3 10*3 1.0-4.0 Blood monocytes automated count (number/volume) 0.6 10*3 0.0-1.0 Automated eosinophil count 0.2 10*3/uL 0.0-0.3 Automated blood basophil count (count/volume) 0.1 10*3/uL 0.0-0.1 PT panel in platelet poor plasma by coagulation assay - 08/26/16 19:37 Prothrombin time (PT) in platelet poor plasma by coagulation assay 13.4 s 12.2-14.7 INR in platelet poor plasma or blood by coagulation assay 1.1 0.8-1.4 Activated partial thromboplastin time (aPTT) in platelet poor plasma bycoagulation assay - 08/26/16 19:37 Activated partial thromboplastin time (aPTT) in platelet poor plasma bycoagulation assay 28 s 24-35 Comprehensive metabolic panel - 08/26/16 19:37 Serum or plasma sodium measurement (moles/volume) 143 mmol/ L 135-145 Serum or plasma potassium measurement (moles/volume) 3.9 mmol/L 3.6-5.0 Serum or plasma chloride measurement (moles/volume) 111 mmol /L 98-107 Carbon dioxide 22 mmol/L 21-32 Serum or plasma anion gap determination (moles/volume) 10 mmol/L 5-14 Serum or plasma urea nitrogen measurement (mass/volume) 18 mg/dL 7-18 Serum or plasma creatinine measurement (mass/volume) 0.89 mg /dL 0.60-1.30 Serum or plasma urea nitrogen/creatinine mass ratio 20 NRG Serum or plasma creatinine measurement with calculation of estimated glomerular filtration rate > NRG Serum or plasma glucose measurement (mass/volume) 127 mg/dL 70-105 Serum or plasma calcium measurement (mass/volume) 9.0 mg/dL 8.5-10.1 Serum or plasma total bilirubin measurement (mass/volume) 0.6 mg/dL 0.1-1.0 Serum or plasma alkaline phosphatase measurement (enzymatic activity/volume) 90 U/L 40-136 Serum or plasma aspartate aminotransferase measurement (enzymatic activity/ volume) 12 U/L 5-34 Serum or plasma alanine aminotransferase measurement (enzymatic activity/volume ) 9 U/L 0-55 Serum or plasma protein measurement (mass/volume) 6.4 g/dL 6.4-8.2 Serum or plasma albumin measurement (mass/volume) 3.7 g/dL 3.2-4.5 RED CELLS LEUKO REDUCED AS1 - 08/26/16 19:37 RED CELLS LEUKO REDUCED AS1 PRSMD TRFSD 1454 NRG Blood type T Indirect antibody screen panel - 08/26/16 19:37 ABO+Rh group OP NRG Transfusion band number [id number] Blood group antibody screen NEGATIVE NRG Methicillin resistant Staphylococcus aureus (MRSA) screening culture - 00:15 Methicillin resistant Staphylococcus aureus (MRSA) screening culture NEG NRG Complete blood count (CBC) with automated white blood cell (WBC) differential - 08/27/16 04:18 Blood leukocytes automated count (number/volume) 4.7 10*3/ uL 4.3-11.0 Blood erythrocytes automated count (number/volume) 3.29 10*6 /uL 4.35-5.85 Venous blood hemoglobin measurement (mass/volume) 8.3 g/dL 11.5-16.0 Blood hematocrit (volume fraction) 26 % 35-52 Automated erythrocyte mean corpuscular volume 80 [foz_us] 80-99 Automated erythrocyte mean corpuscular hemoglobin (mass per erythrocyte) 25 pg 25-34 Automated erythrocyte mean corpuscular hemoglobin concentration measurement ( mass/volume) 32 g/dL 32-36 Automated erythrocyte distribution width ratio 15.5 % 10.0-14.5 Automated blood platelet count (count/volume) 265 10*3/uL 130-400 Automated blood platelet mean volume measurement 9.9 [foz_us ] 7.4-10.4 Automated blood neutrophils/100 leukocytes 53 % 42-75 Automated blood lymphocytes/100 leukocytes 33 % 12-44 Blood monocytes/100 leukocytes 8 % 0-12 Automated blood eosinophils/100 leukocytes 4 % 0-10 Automated blood basophils/100 leukocytes 2 % 0-10 Blood neutrophils automated count (number/volume) 2.5 10*3 1.8-7.8 Blood lymphocytes automated count (number/volume) 1.6 10*3 1.0-4.0 Blood monocytes automated count (number/volume) 0.4 10*3 0.0-1.0 Automated eosinophil count 0.2 10*3/uL 0.0-0.3 Automated blood basophil count (count/volume) 0.1 10*3/uL 0.0-0.1 Whole blood basic metabolic panel - 08/27/16 04:18 Serum or plasma sodium measurement (moles/volume) 142 mmol/ L 135-145 Serum or plasma potassium measurement (moles/volume) 3.8 mmol/L 3.6-5.0 Serum or plasma chloride measurement (moles/volume) 114 mmol /L 98-107 Carbon dioxide 18 mmol/L 21-32 Serum or plasma anion gap determination (moles/volume) 10 mmol/L 5-14 Serum or plasma urea nitrogen measurement (mass/volume) 15 mg/dL 7-18 Serum or plasma creatinine measurement (mass/volume) 0.80 mg /dL 0.60-1.30 Serum or plasma urea nitrogen/creatinine mass ratio 19 NRG Serum or plasma creatinine measurement with calculation of estimated glomerular filtration rate > NRG Serum or plasma glucose measurement (mass/volume) 123 mg/dL 70-105 Serum or plasma calcium measurement (mass/volume) 8.5 mg/dL 8.5-10.1 Automated blood complete blood count (hemogram) panel - 08/28/16 04:08 Blood leukocytes automated count (number/volume) 6.6 10*3/ uL 4.3-11.0 Blood erythrocytes automated count (number/volume) 3.30 10*6 /uL 4.35-5.85 Venous blood hemoglobin measurement (mass/volume) 8.0 g/dL 11.5-16.0 Blood hematocrit (volume fraction) 26 % 35-52 Automated erythrocyte mean corpuscular volume 80 [foz_us] 80-99 Automated erythrocyte mean corpuscular hemoglobin (mass per erythrocyte) 24 pg 25-34 Automated erythrocyte mean corpuscular hemoglobin concentration measurement ( mass/volume) 30 g/dL 32-36 Automated erythrocyte distribution width ratio 15.4 % 10.0-14.5 Automated blood platelet count (count/volume) 261 10*3/uL 130-400 Automated blood platelet mean volume measurement 10.1 [foz_ us] 7.4-10.4 Whole blood basic metabolic panel - 08/28/16 04:08 Serum or plasma sodium measurement (moles/volume) 140 mmol/ L 135-145 Serum or plasma potassium measurement (moles/volume) 3.8 mmol/L 3.6-5.0 Serum or plasma chloride measurement (moles/volume) 112 mmol /L 98-107 Carbon dioxide 18 mmol/L -32 Serum or plasma anion gap determination (moles/volume) 10 mmol/L 5-14 Serum or plasma urea nitrogen measurement (mass/volume) 10 mg/dL 7-18 Serum or plasma creatinine measurement (mass/volume) 0.82 mg /dL 0.60-1.30 Serum or plasma urea nitrogen/creatinine mass ratio 12 NRG Serum or plasma creatinine measurement with calculation of estimated glomerular filtration rate > NRG Serum or plasma glucose measurement (mass/volume) 112 mg/dL 70-105 Serum or plasma calcium measurement (mass/volume) 8.2 mg/dL 8.5-10.1 Complete blood count (CBC) with automated white blood cell (WBC) differential - 08/29/16 11:50 Blood leukocytes automated count (number/volume) 5.3 10*3/ uL 4.3-11.0 Blood erythrocytes automated count (number/volume) 3.85 10*6 /uL 4.35-5.85 Venous blood hemoglobin measurement (mass/volume) 9.7 g/dL 11.5-16.0 Blood hematocrit (volume fraction) 31 % 35-52 Automated erythrocyte mean corpuscular volume 80 [foz_us] 80-99 Automated erythrocyte mean corpuscular hemoglobin (mass per erythrocyte) 25 pg 25-34 Automated erythrocyte mean corpuscular hemoglobin concentration measurement ( mass/volume) 32 g/dL 32-36 Automated erythrocyte distribution width ratio 15.9 % 10.0-14.5 Automated blood platelet count (count/volume) 217 10*3/uL 130-400 Automated blood platelet mean volume measurement 10.0 [foz_ us] 7.4-10.4 Automated blood neutrophils/100 leukocytes 70 % 42-75 Automated blood lymphocytes/100 leukocytes 19 % 12-44 Blood monocytes/100 leukocytes 8 % 0-12 Automated blood eosinophils/100 leukocytes 3 % 0-10 Automated blood basophils/100 leukocytes 1 % 0-10 Blood neutrophils automated count (number/volume) 3.7 10*3 1.8-7.8 Blood lymphocytes automated count (number/volume) 1.0 10*3 1.0-4.0 Blood monocytes automated count (number/volume) 0.4 10*3 0.0-1.0 Automated eosinophil count 0.2 10*3/uL 0.0-0.3 Automated blood basophil count (count/volume) 0.0 10*3/uL 0.0-0.1 Comprehensive metabolic panel - 08/29/16 11:50 Serum or plasma sodium measurement (moles/volume) 142 mmol/ L 135-145 Serum or plasma potassium measurement (moles/volume) 3.6 mmol/L 3.6-5.0 Serum or plasma chloride measurement (moles/volume) 112 mmol /L 98-107 Carbon dioxide 20 mmol/L 21-32 Serum or plasma anion gap determination (moles/volume) 10 mmol/L 5-14 Serum or plasma urea nitrogen measurement (mass/volume) 12 mg/dL 7-18 Serum or plasma creatinine measurement (mass/volume) 0.91 mg /dL 0.60-1.30 Serum or plasma urea nitrogen/creatinine mass ratio 13 NRG Serum or plasma creatinine measurement with calculation of estimated glomerular filtration rate 60 NRG Serum or plasma glucose measurement (mass/volume) 108 mg/dL 70-105 Serum or plasma calcium measurement (mass/volume) 8.7 mg/dL 8.5-10.1 Serum or plasma total bilirubin measurement (mass/volume) 1.1 mg/dL 0.1-1.0 Serum or plasma alkaline phosphatase measurement (enzymatic activity/volume) 97 U/L 40-136 Serum or plasma aspartate aminotransferase measurement (enzymatic activity/ volume) 17 U/L 5-34 Serum or plasma alanine aminotransferase measurement (enzymatic activity/volume ) 11 U/L 0-55 Serum or plasma protein measurement (mass/volume) 6.1 g/dL 6.4-8.2 Serum or plasma albumin measurement (mass/volume) 3.4 g/dL 3.2-4.5 Encounters ACCT No. Visit Date/Time Discharge Status Pt. Type Provider Facility Loc./Unit Complaint [id number] 08/28/2016 12:32:00 2016 13:35:00 DIS Outpatient ALMA KITCHEN DO [facility] 4TH SWB-ANEMIA [id number] 08/26/2016 19:35:00 2016 12:31:00 DIS Outpatient ALAINA IRVING MD [facility] LOWER GI BLEED,HEMORRHOIDS [id number] 08/22/2016 21:40:00 2016 23:26:00 DIS Emergency ZENIA MEDINA APRN [facility] ER RECTAL BLEEDING [id number] 08/09/2016 22:05:00 2016 14:30:00 DIS Inpatient ESTHER DANIELLE DO [facility] 4TH LOWER GIB, ABD PX, H/O GASTRIK ULCERS [id number] 02/13/2016 21:59:00 2015 13:48:00 DIS Inpatient ESTHER DANIELLE DO [facility] ICU TIA;UNCONTROLLED HTN; INTERMITTENT A.FIB [id number] 01/12/2016 22:44:00 2015 00:02:00 DIS Emergency EARL GARIBAY, SAMIRA Velez [facility] ER ABD PAIN/N/V [id number] 05/19/2015 09:06:00 2015 12:33:00 DIS Emergency JANIE GARIBAY, CARLINE Kennedy [facility] ER ELEVATED BP, DIARRHEA [id number] 10/31/2014 14:02:00 2014 23:59:59 CLS Outpatient ESTHER DANIELLE DO [facility] RAD CHEST PAIN [id number] 10/03/2014 11:39:00 2014 18:05:00 DIS Outpatient SMITH ELLIS MD [facility] SDC STRICTURE; ABNORMAL CT [id number] 09/27/2014 06:02:00 2014 23:59:59 CLS Outpatient SMITH ELLIS MD [facility] PREOP STRICTURE; ABNORMAL CT [id number] 08/23/2014 14:18:00 2014 23:59:59 CLS Outpatient ESTHER DANIELLE DO [facility] RAD CONSTIPATION,ABD PAIN [id number] 08/18/2014 10:00:00 2014 11:15:00 DIS Inpatient ALAINA IRVING MD [facility] SURGICAL PARTIAL BOWEL OBSTRUCTIN,UTI,RECENT GI BLEED [id number] 07/29/2014 02:11:00 2014 16:30:00 DIS Inpatient HERMANN BUTLER MD [facility] SURGICAL GI BLEED [id number] 06/19/2014 12:06:00 2014 14:07:00 DIS Emergency ZENIA MEDINA APRN [facility] ER NAUSEATED FEELS LIKE HEART IS RACING [id number] 08/07/2013 06:45:00 2013 10:20:00 DIS Outpatient SMITH ELLIS MD [facility] SDC GI BLEED [id number] 08/05/2013 09:17:00 2013 12:06:00 DIS Emergency MEDINA ZENIA Filiberto LENTZN [facility] ER ELEVATED BP,NAUSEA [id number] 08/03/2013 07:27:00 2013 23:59:59 CLS Outpatient SMITH ELLIS MD [facility] PREOP GI BLEED [id number] 04/02/2013 10:19:00 2012 13:00:00 DIS Inpatient MINDI LEE MD [facility] SURGICAL GI BLEED [id number] 12/31/2012 13:04:00 2012 10:45:00 DIS Inpatient SMITH ELLIS MD [facility] SURGICAL BOWEL OBSTRUCTION [id number] 11/06/2012 15:55:00 2012 12:00:00 DIS Inpatient LORIE GARIBAY FACC, KISHAN FACP CCDS [facility] CSD A FIB [id number] 03/04/2016 10:45:00 ACT Outpatient BEBETO HOLLINGSWORTH MD [facility] CATH AR,HTN,FATIGUE,PAF,SSS,DIZZINESS [id number] 08/12/2012 09:32:00 Document Registration [id number] 07/26/2012 08:35:00 Document Registration [id number] 07/03/2012 18:35:00 Document Registration [id number] 03/05/2012 03:50:00 Document Registration [id number] 01/27/2012 05:36:00 Document Registration [id number] 01/18/2012 07:30:00 Document Registration [id number] 12/28/2011 11:50:00 Document Registration [id number] 12/25/2011 08:22:00 Document Registration [id number] 12/23/2011 08:05:00 Document Registration [id number] 10/22/2011 07:43:00 Document Registration [id number] 09/09/2011 22:17:00 Document Registration [id number] 02/03/2011 13:43:00 Document Registration [id number] 01/15/2011 09:33:00 Document Registration [id number] 08/11/2010 16:30:00 Document Registration
--- OUTSIDE RECORDS SUMMARY | 2016-09-13 05:02 | XMS REPORT | Continuity of Care Document ---
Author Author [facility] Organization [facility] Address Unknown Phone Unavailable Allergies Active Description Code Type Severity Reaction Onset Reported/Identified Relationship to Patient Clinical Status Yes cephalexin [id number] Drug Allergy Unknown N/A 07/26/2007 Yes erythromycin base [id number] Drug Allergy Unknown N/A 07/26/2007 Yes furosemide [id number] Drug Allergy Unknown N/A 07/26/2007 Yes Penicillins [id number] Drug Allergy Unknown N/A 07/26/2007 Yes Shellfish [id number] Drug Allergy Unknown N/A 07/26/2007 Yes Sulfa (Sulfonamide Antibiotics) [id number] Drug Allergy Unknown N/A 07/26/2007 Yes TAPE TAPE Unknown N/A 07/26/2007 Yes tetracycline [id number] Drug Allergy Unknown N/A 07/26/2007 Yes ciprofloxacin [id number] Drug Allergy Unknown N/A 02/01/2009 Yes azithromycin [id number] Drug Allergy Unknown ITCHING 08/05/2013 Yes nitrofurantoin [id number] Drug Allergy Unknown ITCHING/ "THICK 08/05/2013 Medications [...] ELLIS MD Ot 414.01 CORONARY ATHEROSCLEROSIS OF [place] CORON 01/02/2013 SMITH ELLIS MD Ot 427.31 ATRIAL FIBRILLATION 01/02/2013 SMITH ELLIS MD Ot 553.3 DIAPHRAGMATIC HERNIA 01/02/2013 SMITH ELLIS MD Ot 560.9 INTESTINAL OBSTRUCT NOS 01/02/2013 SMITH ELLIS MD Ot 564.09 OTHER CONSTIPATION 01/02/2013 SMITH ELLIS MD Ot 564.1 IRRITABLE BOWEL SYNDROME 01/02/2013 SMITH LELIS MD Ot 569.89 INTESTINAL DISORDERS NEC 01/02/2013 SMITH ELLIS MD Ot 715.90 OSTEOARTHROS NOS-UNSPEC 04/05/2013 MINDI LEE MD Ot 244.9 HYPOTHYROIDISM NOS 04/05/2013 MINDI LEE MD Ot 285.9 ANEMIA NOS 04/05/2013 MINDI LEE MD Ot 401.9 HYPERTENSION NOS 04/05/2013 MINDI LEE MD Ot 414.01 CORONARY ATHEROSCLEROSIS OF [place] CORON 04/05/2013 MINDI LEE MD Ot 427.31 ATRIAL FIBRILLATION 04/05/2013 MINDI LEE MD Ot 530.81 ESOPHAGEAL REFLUX 04/05/2013 MINDI LEE MD Ot 535.41 OTHER SPECIFIED GASTRITIS, WITH HEMORRHA 04/05/2013 MINDI LEE MD Ot 562.10 DIVERTICULOSIS COLON (W/O MENT OF HEMORR 04/05/2013 MINDI LEE MD Ot 790.29 OTHER ABNORMAL GLUCOSE 04/05/2013 MINDI LEE MD Ot V12.59 HX-CIRCULATORY SYST DIS,NEC 04/05/2013 MIDNI LEE MD Ot V58.61 ANTICOAGULANTS,LT,CURRENT USE 08/05/2013 ZENIA MEDINA OUTGOING INSPECTOR Ot 401.9 HYPERTENSION NOS 08/05/2013 ZENIA MEDINA OUTGOING INSPECTOR Ot 564.00 UNSPEC CONSTIPATION 08/05/2013 ZENIA MEDINA OUTGOING INSPECTOR Ot 787.20 DYSPHAGIA, UNSPECIFIED 08/07/2013 SMITH ELLIS [...] 578.9 GASTROINTEST HEMORR NOS 06/19/2014 ZENIA MEDINA OUTGOING INSPECTOR Ot 473.9 CHRONIC SINUSITIS NOS 06/19/2014 ZENIA MEDINA OUTGOING INSPECTOR Ot 780.79 OTH MALAISE FATIGUE 06/19/2014 ZENIA MEDINA OUTGOING INSPECTOR Ot 787.02 NAUSEA ALONE 06/19/2014 ZENIA MEDINA OUTGOING INSPECTOR Ot V58.69 OTH MED,LT,CURRENT USE 07/30/2014 HERMANN [...] 08/20/2014 ARISTIDES GARIBAY, ALAINA Ot 300.00 08/20/2014 AIRSTIDES GARIBAY, JOSEKI Ot 401.9 08/20/2014 ARISTIDES GARIBAY, ALAINA Ot 427.31 08/20/2014 ARISTIDES GARIBAY, ALAINA Ot 530.81 08/20/2014 ARISTIDES GARIBAY, HEATHERAAKI Ot 535.40 08/20/2014 ARISTIDES GARIBAY, HEATHERAAKI Ot 560.9 08/20/2014 ARISTIDES GARIBAY, HEATHERAAKI Ot 564.00 08/20/2014 ARISTIDES GARIBAY, HEATHERAAKI Ot 599.0 08/20/2014 ARISTIDES GARIBAY, HEATHERAAALMAZ Ot 244.9 08/20/2014 ARISTIDES GRAIBAY, HEATHERAAKI Ot 300.00 08/20/2014 ARISTIDES GARIBAY, ALAINA [...] Velez Ot R10.84 GENERALIZED ABDOMINAL PAIN 01/13/2016 SAMIRA ELLIOTT MD Ot R19.7 DIARRHEA, UNSPECIFIED 01/13/2016 Ot 789.00 ABDOMINAL PAIN, UNSPECIFIED SITE 01/13/2016 Ot V72.84 EXAM PRE-OPERATIVE NOS 01/13/2016 Ot 455.6 HEMORRHOIDS NOS 01/13/2016 Ot V72.81 [id number] CARDIOVASCULAR 01/13/2016 Ot 477.9 ALLERGIC RHINITIS NOS [...] DANIELLE DO Ot E03.9 HYPOTHYROIDISM, UNSPECIFIED 02/15/2016 ESTHER DANIELLE DO Ot E11.9 TYPE 2 DIABETES [...] Ot 455.6 HEMORRHOIDS NOS 03/04/2016 Ot V72.81 [id number] CARDIOVASCULAR 03/04/2016 Ot 477.9 ALLERGIC RHINITIS NOS [...] SYNDROME 03/10/2016 BEBETO HOLLINGSWORTH MD Ot Z79.01 INTERMEDIATE (CURRENT) USE OF ANTICOAGULANT 03/10/2016 BEBETO HOLLINGSWORTH MD Ot Z79.899 OTHER MOLDING FITTER (CURRENT) DRUG THERAPY 03/10/2016 BEBETO HOLLINGSWORTH MD [...] SYNDROME 03/27/2016 BEBETO HOLLINGSWORTH MD Ot Z79.01 INTERMEDIATE (CURRENT) USE OF ANTICOAGULANT 03/27/2016 BEBETO HOLLINGSWORTH MD Ot Z79.899 OTHER MOLDING FITTER (CURRENT) DRUG THERAPY 03/27/2016 BEBETO HOLLINGSWORTH MD [...] SYNDROME 04/09/2016 BEBETO HOLLINGSWORTH MD, Ot Z79.01 INTERMEDIATE (CURRENT) USE OF ANTICOAGULANT 04/09/2016 BEBETO HOLLINGSWORTH MD Ot Z79.899 OTHER MOLDING FITTER (CURRENT) DRUG THERAPY 04/09/2016 BEBETO HOLLINGSWORTH MD, [...] DO, Ot I25.10 ATHSCL HEART DISEASE OF [place] CORONARY 08/12/2016 ESTHER DANIELLE DO, Ot I42.9 [...] PAT 08/12/2016 ESTHER DANIELLE DO Ot Z79.01 INTERMEDIATE (CURRENT) USE OF ANTICOAGULANT 08/12/2016 ESTHER DANIELLE DO Ot Z87.11 PERSONAL HISTORY OF PEPTIC ULCER DISEASE 08/22/2016 ZENIA MEDINA APRN Ot I10 ESSENTIAL (PRIMARY) HYPERTENSION 08/22/2016 ZENIA MEDINA APRN Ot I48.2 CHRONIC ATRIAL FIBRILLATION 08/22/2016 ZENIA MEDINA APRN Ot K62.5 HEMORRHAGE OF ANUS AND RECTUM 08/22/2016 ZENIA MEDINA APRN Ot K64.4 RESIDUAL HEMORRHOIDAL SKIN TAGS 08/22/2016 ZENIA MEDIAN APRN Ot K64.8 OTHER HEMORRHOIDS 08/22/2016 ZENIA MEDINA APRN Ot Z79.899 OTHER MOLDING FITTER (CURRENT) DRUG THERAPY 08/31/2016 ALMA KITCHEN DO [...] DOI Ot I25.10 ATHSCL HEART DISEASE OF [place] CORONARY 08/31/2016 ALMA KITCHEN DO Ot I42.9 CARDIOMYOPATHY, UNSPECIFIED 08/31/2016 ALMA KITCHEN DO Ot I48.91 UNSPECIFIED ATRIAL FIBRILLATION 08/31/2016 KATHY KITCHEN DOI Ot K21.9 GASTRO-ESOPHAGEAL REFLUX DISEASE WITHOUT 08/31/2016 KATHY KITCHEN DOI Ot K62.3 RECTAL PROLAPSE 08/31/2016 ALMA KITCHEN DO Ot K64.2 THIRD DEGREE HEMORRHOIDS 08/31/2016 ALMA KITCHEN DO, Ot K64.9 UNSPECIFIED HEMORRHOIDS 08/31/2016 ALMA KITCHEN DO, Ot M81.0 AGE-RELATED OSTEOPOROSIS W/O CURRENT PAT 08/31/2016 ALMA KITCHEN DO, Ot Z79.01 INTERMEDIATE (CURRENT) USE OF ANTICOAGULANT 09/03/2016 ALAINA IRVING [...] MD, Ot I25.10 ATHSCL HEART DISEASE OF [place] CORONARY 09/03/2016 ALAINA IRVING MD, Ot I42.9 CARDIOMYOPATHY, UNSPECIFIED 09/03/2016 ALAINA IRVING MD, Ot I48.91 UNSPECIFIED ATRIAL FIBRILLATION 09/03/2016 ALAINA IRVING MD, Ot K21.9 GASTRO-ESOPHAGEAL REFLUX DISEASE WITHOUT 09/03/2016 ALAINA IRVING MD, Ot K62.3 RECTAL PROLAPSE 09/03/2016 ALAINA IRVING MD, Ot K64.2 THIRD DEGREE HEMORRHOIDS 09/03/2016 ALAINA IRVING MD, Ot M81.0 AGE-RELATED OSTEOPOROSIS W/O CURRENT PAT 09/03/2016 ALAINA IRVING MD, Ot Z79.01 MOLDING FITTER (CURRENT) USE OF ANTICOAGULANT Procedures Code Description Performed By Performed On 45.13 04/04/2013 44.43 07/29/2014 [id number] EXCISION OF ESOPHAGOGASTRIC JUNCTION, EN 08/11/2016 [id number] EXCISION OF STOMACH, PYLORUS, ENDO, DIAG 08/11/2016 [id number] INSPECTION OF LOWER INTESTINAL TRACT, EN 08/11/2016 [...] ABO+Rh group OP NRG Transfusion band number [id number] Blood group antibody screen NEGATIVE NR [...] ABO+Rh group OP NRG Transfusion band number [id number] Blood group antibody screen NEGATIVE NRG [...] Status Pt. Type Provider Facility Loc./Unit Complaint [id number] 08/28/2016 12:32:00 2016 13:35:00 DIS Outpatient ALMA KITCHEN DO [facility] 4TH SWB-ANEMIA [id number] 08/26/2016 19:35:00 2016 12:31:00 DIS Outpatient ALAINA IRVING MD [facility] LOWER GI BLEED,HEMORRHOIDS [id number] 08/22/2016 21:40:00 2016 23:26:00 DIS Emergency ZENIA MEDINA APRN [facility] ER RECTAL BLEEDING [id number] 08/09/2016 22:05:00 2016 14:30:00 DIS Inpatient ESTHER DANIELLE DO [facility] 4TH LOWER GIB, ABD PX, H/O GASTRIK ULCERS [id number] 02/13/2016 21:59:00 2015 13:48:00 DIS Inpatient ESTHER DANIELLE DO [facility] ICU TIA;UNCONTROLLED HTN; INTERMITTENT A.FIB [id number] 01/12/2016 22:44:00 2015 00:02:00 DIS Emergency EARL GARIBAY, SAMIRA Velez [facility] ER ABD PAIN/N/V [id number] 05/19/2015 09:06:00 2015 12:33:00 DIS Emergency JANIE GARIBAY, CARLINE Kennedy [facility] ER ELEVATED BP, DIARRHEA [id number] 10/31/2014 14:02:00 2014 23:59:59 CLS Outpatient ESTHER DANIELLE DO [facility] RAD CHEST PAIN [id number] 10/03/2014 11:39:00 2014 18:05:00 DIS Outpatient SMITH ELLIS MD [facility] SDC STRICTURE; ABNORMAL CT [id number] 09/27/2014 06:02:00 2014 23:59:59 CLS Outpatient SMITH ELLIS MD [facility] PREOP STRICTURE; ABNORMAL CT [id number] 08/23/2014 14:18:00 2014 23:59:59 CLS Outpatient ESTHER DANIELLE DO [facility] RAD CONSTIPATION,ABD PAIN [id number] 08/18/2014 10:00:00 2014 11:15:00 DIS Inpatient ALAINA IRVING MD [facility] SURGICAL PARTIAL BOWEL OBSTRUCTIN,UTI,RECENT GI BLEED [id number] 07/29/2014 02:11:00 2014 16:30:00 DIS Inpatient HERMANN BUTLER MD [facility] SURGICAL GI BLEED [id number] 06/19/2014 12:06:00 2014 14:07:00 DIS Emergency ZENIA MEDINA APRN [facility] ER NAUSEATED FEELS LIKE HEART IS RACING [id number] 08/07/2013 06:45:00 2013 10:20:00 DIS Outpatient SMITH ELLIS MD [facility] SDC GI BLEED [id number] 08/05/2013 09:17:00 2013 12:06:00 DIS Emergency MEDINA ZENIA Filiberto LENTZN [facility] ER ELEVATED BP,NAUSEA [id number] 08/03/2013 07:27:00 2013 23:59:59 CLS Outpatient SMITH ELLIS MD [facility] PREOP GI BLEED [id number] 04/02/2013 10:19:00 2012 13:00:00 DIS Inpatient MINDI LEE MD [facility] SURGICAL GI BLEED [id number] 12/31/2012 13:04:00 2012 10:45:00 DIS Inpatient SMITH ELLIS MD [facility] SURGICAL BOWEL OBSTRUCTION [id number] 11/06/2012 15:55:00 2012 12:00:00 DIS Inpatient LORIE GARIBAY FACC, KISHAN FACP CCDS [facility] CSD A FIB [id number] 03/04/2016 10:45:00 ACT Outpatient BEBETO HOLLINGSWORTH MD [facility] CATH AR,HTN,FATIGUE,PAF,SSS,DIZZINESS [id number] 08/12/2012 09:32:00 Document Registration [id number] 07/26/2012 08:35:00 Document Registration [id number] 07/03/2012 18:35:00 Document Registration [id number] 03/05/2012 03:50:00 Document Registration [id number] 01/27/2012 05:36:00 Document Registration [id number] 01/18/2012 07:30:00 Document Registration [id number] 12/28/2011 11:50:00 Document Registration [id number] 12/25/2011 08:22:00 Document Registration [id number] 12/23/2011 08:05:00 Document Registration [id number] 10/22/2011 07:43:00 Document Registration [id number] 09/09/2011 22:17:00 Document Registration [id number] 02/03/2011 13:43:00 Document Registration [id number] 01/15/2011 09:33:00 Document Registration [id number] 08/11/2010 16:30:00 Document Registration
== END 2016-08-12 14:30 | disposition home or self-care (01) | DRG 378 ==
LOC: EDUNIT# 20:04 → ER 20:07 → ICU 22:05 → 4TH 08-11 14:43
PROVIDERS: ADMIT Internal Medicine; ATTEND Internal Medicine
PROC: 0DJD8ZZ Inspection of Lower Intestinal Tract, Via Natural or Artificial Opening Endoscopic (ICD-10-PCS; 2016-08-11)
PROC: 0DB48ZX Excision of Esophagogastric Junction, Via Natural or Artificial Opening Endoscopic, Diagnostic (ICD-10-PCS; principal; 2016-08-11 12:21)
PROC: 0DB78ZX Excision of Stomach, Pylorus, Via Natural or Artificial Opening Endoscopic, Diagnostic (ICD-10-PCS; 2016-08-11 12:21)
DX: K29.71 Gastritis, unspecified, with bleeding (principal); D62 Acute posthemorrhagic anemia; I48.0 Paroxysmal atrial fibrillation; I42.9 Cardiomyopathy, unspecified; I25.10 Atherosclerotic heart disease of native coronary artery without angina pectoris; I10 Essential (primary) hypertension; E11.9 Type 2 diabetes mellitus without complications; E89.0 Postprocedural hypothyroidism; K21.0 Gastro-esophageal reflux disease with esophagitis; M19.91 Primary osteoarthritis, unspecified site; M81.0 Age-related osteoporosis without current pathological fracture; H40.9 Unspecified glaucoma; H91.90 Unspecified hearing loss, unspecified ear; K64.2 Third degree hemorrhoids; F41.9 Anxiety disorder, unspecified; F32.9 Major depressive disorder, single episode, unspecified; Z79.01 Long term (current) use of anticoagulants; Z87.11 Personal history of peptic ulcer disease
CPT/HCPCS: 36415; 71010; 80048; 80053; 82962; 83735; 84100; 85014; 85018; 85025; 85610; 85730; 86850; 86900; 86901; 86920; 87081; 88305; 96361; 96374; 96375

== ENCOUNTER 2016-08-22 21:39 | Emergency (ER) | payer MEDICARE, MEDICAID ==
[~2016-08-22] VITALS: Ht 167.6 cm; Wt 78.5 kg
[~2016-08-22 21:39] MED LIST changes: +AMIO100T4 PO; +METO5TAB2 PO; +MONT10TA24 PO; +SUCR1TAB36 PO
--- NOTE | 2016-08-22 21:51 | ED GI ---
General Chief Complaint: Rect Problems Stated Complaint: RECTAL BLEEDING Source of Information: Patient Exam Limitations: No Limitations History of Present Illness Time Seen By Provider: 21:50 Initial Comments To ER per EMS from home with reports of rectal bleeding 3 tonight. She states that the blood in the toilet was bright red. States that she's been constipated so she took half a bottle of magnesium citrate last night and half bottle today. This resulted in a bowel movement but 3 of these were bloody. She had a colonoscopy done earlier this month here following admission for GI bleed. She was found to have internal hemorrhoids and external hemorrhoids. She is on Xarelto for atrial fibrillation however this was stopped about a week ago during that admission and she has not taken it since. Timing/Duration: 1-3 Hours Allergies and Home Medications Allergies Coded Allergies: Penicillins (Verified Allergy, Unknown, 07/26/07) Shellfish (Verified Allergy, Unknown, 07/26/07) Sulfa (Sulfonamide Antibiotics) (Verified Allergy, Unknown, 07/26/07) azithromycin (Unverified Allergy, Unknown, ITCHING, 08/05/13) cephalexin (Verified Allergy, Unknown, 07/26/07) erythromycin base (Verified Allergy, Unknown, 07/26/07) furosemide (Verified Allergy, Unknown, 07/26/07) nitrofurantoin (Unverified Allergy, Unknown, ITCHING/"THICK TONGUE", ) tetracycline (Verified Allergy, Unknown, 07/26/07) Uncoded Allergies: TAPE (Allergy, Unknown, 07/26/07) Home Medications Acetaminophen 500 Mg Tablet, 500 MG PO BID PRN for PAIN, (Reported) Alprazolam 0.25 Mg Tablet, 0.25 MG PO Q8H PRN for ANXIETY, (Reported) Amiodarone HCl 100 Mg Tablet, 100 MG PO DAILY, (Reported) LAST FILLED 05/30/16 #30 Cyanocobalamin 1,000 Mcg/Ml Inj, 1,000 MCG INJ MONTHLY, (Reported) OF EACH MONTH Famotidine/Ca Carb/Mag Hydrox 1 Each Tab.chew, 1 TAB.CHEW PO DAILY PRN for HEARTBURN, (Reported) Fexofenadine Hcl 180 Mg Tablet, 180 MG PO DAILY, (Reported) Irbesartan 300 Mg Tablet, 300 MG PO DAILY, (Reported) Latanoprost 2.5 Ml Drops, 1 DROP OU HS, (Reported) Levothyroxine Sodium 50 Mcg Tablet, 50 MCG PO DAILY, (Reported) Mag Hydrox/Al Hydrox/Simeth 30 Ml Oral.susp, 1 TBS PO BID PRN for INDIGESTION, ( Reported) Montelukast Sodium 10 Mg Tablet, 10 MG PO HS, (Reported) Omeprazole 20 Mg Capsule.dr, 20 MG PO DAILY for 30 Days, #30 Ref 5 Prescribed by: CARLINE GARCIA on 08/12/16 08 Potassium Chloride 10 Meq Tab.er.prt, 10 MEQ PO DAILY, (Reported) Sucralfate 1 Gm Tablet, 1 GM PO QID for 14 Days Prescribed by: TAMMY VILLANUEVA on 08/12/16 191 Review of Systems Constitutional: see HPI EENTM: No Symptoms Reported Respiratory: No Symptoms Reported Cardiovascular: No Symptoms Reported Gastrointestinal: See HPI, Rectal Bleeding Genitourinary: No Symptoms Reported Musculoskeletal: no symptoms reported Skin: no symptoms reported Psychiatric/Neurological: No Symptoms Reported Endocrine: No Symptoms Reported Past Ztxgwie-Xuiasa-Msrwzz Hx Patient Social History Recent Hopitalizations: No Immunizations Up To Date Tetanus Booster (TDap): Less than 5yrs PED Vaccines UTD: No Date of Pneumonia Vaccine: October 03, 2010 Date of Influenza Vaccine: Feb 08, 2012 Seasonal Allergies Seasonal Allergies: Yes Surgeries HX Surgeries: Yes Surgeries: Abdominal, Appendectomy, Gallbladder, Hysterectomy, Rectal, Thyroidectomy, Tonsillectomy Respiratory Hx Respiratory Disorders: No Cardiovascular Hx Cardiac Disorders: Yes (PVC'S, ENLARGED HEART) Cardiac Disorders: Atrial Fibrillation, Cardiomyopathy, Chronic Edema/Swelling , Coronary Artery Disease, Hypertension Neurological Hx Neurological Disorders: No 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 System Hx 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 Disorders: 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 Genitourinary Hx Genitourinary Disorders: Yes (DOUBLE COLLECTING SYSTEM) Genitourinary Disorders: UTI-Chronic Gastrointestinal Hx Gastrointestinal Disorders: Yes Gastrointestinal Disorders: Gastroesophageal Reflux, Gastrointestinal Bleed, Esophagitis, Ulcer Musculoskeletal Hx Musculoskeletal Disorders: Yes (OSTEOARTHRITIS, FX RIGHT LOWER LEG, DISLOCATED RIGHT SHOULDER) Musculoskeletal Disorders: Osteoporosis, Arthritis, Fractures Endocrine Hx Endocrine Disorders: Yes (THYROIDECTOMY; "PREDIABETIC" PER PT ON 02/13/16 -- NO MEDICATIONS) Endocrine Disorders: Hypothyroidsim, Diabetes, Non-Insulin dep HEENT HX ENT Disorders: Yes HEENT Disorders: Glaucoma Hearing Impairment: Hard of Hearing Cancer Hx Cancer: No Psychosocial Hx Psychiatric Problems: Yes Behavioral Health Disorders: Anxiety, Depression Integumentary HX Skin/Integumentary Disorder: No Blood Transfusions Hx Blood Disorders: Yes (ANEMIA) Adverse Reaction to a Blood Tr: No Family Medical History Significant Family History: No Pertinent Family Hx Family Medial History: Family history: Hypertension 03 FATHER, Onset:40's - 50 09 BROTHER, Onset:40's - 50 History of drug abuse 03 FATHER, Onset:20's - 25 Stroke 03 FATHER, Onset:60 years & older Physical Exam Vital Signs Capillary Refill : General Appearance: WD/WN, no apparent distress HEENT: PERRL/EOMI, normal ENT inspection Neck: non-tender, full range of motion Respiratory: no respiratory distress, no accessory muscle use Cardiovascular: irregularly irregular Gastrointestinal: normal bowel sounds, non tender, soft Rectal: hemorrhoids (no active bleeding seen on the external hemorrhoids.), other Extremities: normal range of motion, non-tender Neurologic/Psychiatric: alert, normal mood/affect, oriented x 3 Skin: normal color, warm/dry Progress/Results/Core Measures Results/Orders Lab Results Laboratory Tests Test 08/22/16 22:10 Range/Units White Blood Count 6.0 4.3-11.0 10^3/uL Red Blood Count 4.08 L 4.35-5.85 10^6/uL Hemoglobin 10.1 L 11.5-16.0 G/DL Hematocrit 33 L 35-52 % Mean Corpuscular Volume 80 80-99 FL Mean Corpuscular Hemoglobin 25 25-34 PG Mean Corpuscular Hemoglobin Concent 31 L 32-36 G/DL Red Cell Distribution Width 15.8 H 10.0-14.5 % Platelet Count 299 130-400 10^3/uL Mean Platelet Volume 9.7 7.4-10.4 FL Neutrophils (%) (Auto) 61 42-75 % Lymphocytes (%) (Auto) 24 12-44 % Monocytes (%) (Auto) 10 0-12 % Eosinophils (%) (Auto) 4 0-10 % Basophils (%) (Auto) 1 0-10 % Neutrophils # (Auto) 3.7 1.8-7.8 X 10^3 Lymphocytes # (Auto) 1.4 1.0-4.0 X 10^3 Monocytes # (Auto) 0.6 0.0-1.0 X 10^3 Eosinophils # (Auto) 0.2 0.0-0.3 10^3/uL Basophils # (Auto) 0.1 0.0-0.1 10^3/uL Sodium Level 141 135-145 MMOL/L Potassium Level 4.2 3.6-5.0 MMOL/L Chloride Level 109 H 98-107 MMOL/L Carbon Dioxide Level 21 21-32 MMOL/L Anion Gap 11 5-14 MMOL/L Blood Urea Nitrogen 17 7-18 MG/DL Creatinine 0.92 0.60-1.30 MG/DL Estimat Glomerular Filtration Rate 59 BUN/Creatinine Ratio 18 Glucose Level 124 H 70-105 MG/DL Calcium Level 9.2 8.5-10.1 MG/DL Total Bilirubin 0.6 0.1-1.0 MG/DL Aspartate Amino Transf (AST/SGOT) 14 5-34 U/L Alanine Aminotransferase (ALT/SGPT) 11 0-55 U/L Alkaline Phosphatase 96 40-136 U/L Total Protein 6.8 6.4-8.2 G/DL Albumin 3.9 3.2-4.5 G/DL My Orders Orders - ZENIA MEDINA APRN Cbc With Automated Diff (08/22/16 21:49) Comprehensive Metabolic Panel (08/22/16 21:49) Saline Lock/Iv-Start (08/22/16 21:49) Departure Communication Progress Notes 2303-still no active bleeding. Vitals stable. Hemoglobin is stable. Discussed with Dr. Schultz and he agrees with plan of care. We will discharge the patient home. Patient will follow-up with Dr. Martin on the as scheduled. She will start Colace tomorrow and Anusol suppositories. Impression Impression: Primary Impression: Hemorrhoids Disposition: HOME, SELF-CARE Condition: Stable Departure-Patient Inst. Decision time for Depature: 23:03 Referrals: ESTHER DANIELLE DO (PCP/Family) Primary Care Physician Patient Instructions: Hemorrhoids (DC) Add. Discharge Instructions: 1. Start the suppositories tomorrow 2. Start Colace stool softener tomorrow as well 3. Return to ER for any concerns 4. Follow-up with Dr. Martin next week as scheduled All discharge instructions reviewed with patient and/or family. Voiced understanding. Scripts Docusate Sodium (Colace) 100 Mg Capsule 100 MG PO DAILY, #20 CAP Prov: ZENIA MEDINA APRN 08/22/16 Hydrocortisone Acetate (Anusol-Hc) 25 Mg Supp.rect 25 MG RC BID, #10 SUPP.RECT Prov: ZENIA MEDINA APRN 08/22/16 ZENIA MEDINA APRN Aug 22, 2016 21:51
[2016-08-22 22:30] LABS: BASOPHILS # (AUTO) 0.1 10^3/uL (0.0-0.1); BASOPHILS % (AUTO) 1 % (0-10); EOSINOPHILS # (AUTO) 0.2 10^3/uL (0.0-0.3); EOSINOPHILS % (AUTO) 4 % (0-10); LYMPHOCYTES # (AUTO) 1.4 X 10^3 (1.0-4.0); LYMPHOCYTES % (AUTO) 24 % (12-44); MEAN CORPUSCULAR HEMOGLOBIN 25 PG (25-34); MEAN CORPUSCULAR HGB CONC 31 G/DL (32-36); MEAN CORPUSCULAR VOLUME 80 FL (80-99); MEAN PLATELET VOLUME 9.7 FL (7.4-10.4); MONOCYTES # (AUTO) 0.6 X 10^3 (0.0-1.0); MONOCYTES % (AUTO) 10 % (0-12); NEUTROPHILS # (AUTO) 3.7 X 10^3 (1.8-7.8); NEUTROPHILS % (AUTO) 61 % (42-75); PLATELET COUNT 299 10^3/uL (130-400); RED BLOOD COUNT 4.08 10^6/uL (4.35-5.85); RED CELL DISTRIBUTION WIDTH 15.8 % (10.0-14.5)
[2016-08-22 22:46] LABS: ALBUMIN 3.9 G/DL (3.2-4.5); BILIRUBIN,TOTAL 0.6 MG/DL (0.1-1.0); CALCIUM 9.2 MG/DL (8.5-10.1); CREATININE SERUM 0.92 MG/DL (0.60-1.30); POTASSIUM 4.2 MMOL/L (3.6-5.0); TOTAL PROTEIN 6.8 G/DL (6.4-8.2)
[2016-08-22] MEDS ORDERED: DOCU-143 PO (23:05)
[2016-08-22] MEDS ORDERED: HYDR25SU28 RC (23:05)
[2016-08-22 23:26] VITALS: BP 142/77
[2016-08-31] MEDS ORDERED: HYDR-3812 PO (09:21)
== END 2016-08-22 23:26 | disposition home or self-care (01) ==
LOC: EDUNIT# 21:39 → ER 21:40
DX: K64.4 Residual hemorrhoidal skin tags (principal); K64.8 Other hemorrhoids; I10 Essential (primary) hypertension; I48.2 Chronic atrial fibrillation; Z79.899 Other long term (current) drug therapy
CPT/HCPCS: 36415; 80053; 85025

== ENCOUNTER 2016-08-26 17:14 | Day surgery (SDC) | payer MEDICARE, MEDICAID ==
[~2016-08-26] VITALS: Ht 167.6 cm; Wt 77.4 kg
[~2016-08-26 17:14] MED LIST changes: +DOCU-143 PO; +HYDR25SU28 RC
--- NOTE | 2016-08-26 17:51 | ED General ---
General Chief Complaint: Rect Problems Stated Complaint: BLOODY STOOL Nursing Triage Note: ARRIVED VIA FROM HOME. HAS A RECENT HX OF INTERNAL HEMORRHOIDS. WENT TO SEE DR [employer] SALESPERSON YESTERDAY DUE TO BLEEDING AN HAS BEEN TAKING COLACE MIRILAX AND ANASOL SUPP. STATES SHE IS STILL BLEEDING TODAY ET WAS TOLD BY THE OFFICE TO COME TO THE ER. Nursing Sepsis Screen: No Definite Risk Source of Information: Patient Exam Limitations: No Limitations History of Present Illness Time Seen by Provider: 17:51 Initial Comments 81-year-old female patient presents to the emergency department with complaints of bleeding hemorrhoids. Patient was seen by Dr. Martin's nurse practitioner yesterday in the office and instructed to use Colace, MiraLAX, and Anusol suppositories. States today he bleeding increased. States she has soaked through her clothes 3. Patient is tearful. States she lives alone and is concerned about the amount of bleeding that she is having. Patient was seen by this examiner on to for similar complaints and admitted to via [facility]. Patient underwent upper and lower endoscopy by Dr. Martin. Patient was seen in the emergency department on 08/[address] Schultz. Timing/Duration: Getting Worse, Other (3 weeks) Modifying Factors: worse with Other (no improvement with Anusol, Colace, and MiraLAX.) Allergies and Home Medications Allergies Coded Allergies: Penicillins (Verified Allergy, Unknown, 07/26/07) Shellfish (Verified Allergy, Unknown, 07/26/07) Sulfa (Sulfonamide Antibiotics) (Verified Allergy, Unknown, 07/26/07) azithromycin (Unverified Allergy, Unknown, ITCHING, 08/05/13) cephalexin (Verified Allergy, Unknown, 07/26/07) erythromycin base (Verified Allergy, Unknown, 07/26/07) furosemide (Verified Allergy, Unknown, 07/26/07) nitrofurantoin (Unverified Allergy, Unknown, ITCHING/"THICK TONGUE", ) tetracycline (Verified Allergy, Unknown, 07/26/07) Uncoded Allergies: TAPE (Allergy, Unknown, 07/26/07) Home Medications Acetaminophen 500 Mg Tablet, 500 MG PO BID PRN for PAIN, (Reported) Alprazolam 0.25 Mg Tablet, 0.25 MG PO Q8H PRN for ANXIETY, (Reported) Amiodarone HCl 100 Mg Tablet, 100 MG PO DAILY, (Reported) LAST FILLED 05/30/16 #30 Cyanocobalamin 1,000 Mcg/Ml Inj, 1,000 MCG INJ MONTHLY, (Reported) 20TH OF EACH MONTH Docusate Sodium 100 Mg Capsule, 100 MG PO DAILY, #20 Prescribed by: ZENIA MEDINA on 08/22/165 Famotidine/Ca Carb/Mag Hydrox 1 Each Tab.chew, 1 TAB.CHEW PO DAILY PRN for HEARTBURN, (Reported) Fexofenadine Hcl 180 Mg Tablet, 180 MG PO DAILY, (Reported) Hydrocortisone Acetate 25 Mg Supp.rect, 25 MG RC BID, #10 Prescribed by: ZENIA MEDINA on 08/22/162304 Irbesartan 300 Mg Tablet, 300 MG PO DAILY, (Reported) Latanoprost 2.5 Ml Drops, 1 DROP OU HS, (Reported) Levothyroxine Sodium 50 Mcg Tablet, 50 MCG PO DAILY, (Reported) Mag Hydrox/Al Hydrox/Simeth 30 Ml Oral.susp, 1 TBS PO BID PRN for INDIGESTION, ( Reported) Montelukast Sodium 10 Mg Tablet, 10 MG PO HS, (Reported) Omeprazole 20 Mg Capsule.dr, 20 MG PO DAILY for 30 Days, #30 Ref 5 Prescribed by: CARLINE GARCIA on 08/12/16821 Potassium Chloride 10 Meq Tab.er.prt, 10 MEQ PO DAILY, (Reported) Sucralfate 1 Gm Tablet, 1 GM PO QID for 14 Days Prescribed by: TAMMY VILLANUEVA on 08/12/16 191 Constitutional: No diaphoresis, No dizziness, No fever, No malaise, No weakness Respiratory: No cough, No short of breath Cardiovascular: No chest pain, No palpitations, No syncope Gastrointestinal: see HPI, No abdominal pain, No constipation, No diarrhea, No melena, No nausea, No vomiting, other (rectal bleeding.) Genitourinary: No decreased output, No dysuria, No frequency, No hematuria, No pain Musculoskeletal: no symptoms reported Skin: no symptoms reported Psychiatric/Neurological: No Symptoms Reported All Other Systems Reviewed Negative Unless Noted: Yes (Negative excepted noted.) Past Oopiobp-Tbcady-Nmrjcf Hx Patient Social History Alcohol Use: Denies Use Recreational Drug Use: Yes Smoking Status: Never a Smoker Recent Foreign Travel: No Contact w/Someone Who Travel: No Recent Infectious Disease Expo: No Recent Hopitalizations: No Immunizations Up To Date Tetanus Booster (TDap): Less than 5yrs PED Vaccines UTD: No Date of Pneumonia Vaccine: October 03, 2010 Date of Influenza Vaccine: Feb 08, 2012 Seasonal Allergies Seasonal Allergies: Yes Surgeries HX Surgeries: Yes Surgeries: Abdominal, Appendectomy, Gallbladder, Hysterectomy, Rectal, Thyroidectomy, Tonsillectomy Respiratory Hx Respiratory Disorders: No Cardiovascular Hx Cardiac Disorders: Yes (PVC'S, ENLARGED HEART) Cardiac Disorders: Atrial Fibrillation, Cardiomyopathy, Chronic Edema/Swelling , Coronary Artery Disease, Hypertension Neurological Hx Neurological Disorders: No 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 System Hx 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 Genitourinary Hx Genitourinary Disorders: Yes (DOUBLE COLLECTING SYSTEM) Genitourinary Disorders: UTI-Chronic Gastrointestinal Hx Gastrointestinal Disorders: Yes Gastrointestinal Disorders: Gastroesophageal Reflux, Gastrointestinal Bleed, Hemorrhoids, Esophagitis, Ulcer Musculoskeletal Hx Musculoskeletal Disorders: Yes (OSTEOARTHRITIS, FX RIGHT LOWER LEG, DISLOCATED RIGHT SHOULDER) Musculoskeletal Disorders: Osteoporosis, Arthritis, Fractures Endocrine Hx Endocrine Disorders: Yes (THYROIDECTOMY; "PREDIABETIC" PER PT ON 02/13/16 -- NO MEDICATIONS) Endocrine Disorders: Hypothyroidsim, Diabetes, Non-Insulin dep HEENT HX ENT Disorders: Yes HEENT Disorders: Glaucoma Hearing Impairment: Hard of Hearing Cancer Hx Cancer: No Psychosocial Hx Psychiatric Problems: Yes Behavioral Health Disorders: Anxiety, Depression Integumentary HX Skin/Integumentary Disorder: No Blood Transfusions Hx Blood Disorders: Yes (ANEMIA) Adverse Reaction to a Blood Tr: No Reviewed Nursing Assessment Reviewed/Agree w Nursing PMH: Yes Family Medical History Significant Family History: No Pertinent Family Hx Family Medial History: Family history: Hypertension 03 FATHER, Onset:40's - 50 09 BROTHER, Onset:40's - 50 History of drug abuse 03 FATHER, Onset:20's - 25 Stroke 03 FATHER, Onset:60 years & older Physical Exam Vital Signs Vital Sign - Last 12Hours 08/26/16 17:25 Temp 98.0 Pulse 68 Resp 16 B/P (MAP) 139/72 Pulse Ox 99 Capillary Refill : Less Than 3 Seconds General Appearance: No Apparent Distress, WD/WN HEENT: PERRL/EOMI, Pharynx Normal Neck: Normal Inspection, Supple Respiratory: Lungs Clear, Normal Breath Sounds, No Respiratory Distress Cardiovascular: Regular Rate, Rhythm, No Murmur, Normal Peripheral Pulses Gastrointestinal: Normal Bowel Sounds, Non Tender, Soft, No Guarding Rectal: Other (a small amount of dried blood noted on the external anus. No active bleeding noted. small hemorrhoidal tags noted externally.) Back: Normal Inspection Extremity: Normal Capillary Refill Neurologic/Psychiatric: Alert, Oriented x3, Normal Mood/Affect Skin: Normal Color, Warm/Dry Progress/Results/Core Measures Results/Orders Lab Results Laboratory Tests Test 08/26/16 19:37 Range/Units White Blood Count 5.5 4.3-11.0 10^3/uL Red Blood Count 3.52 L 4.35-5.85 10^6/uL Hemoglobin 8.8 L 11.5-16.0 G/DL Hematocrit 28 L 35-52 % Mean Corpuscular Volume 80 80-99 FL Mean Corpuscular Hemoglobin 25 25-34 PG Mean Corpuscular Hemoglobin Concent 31 L 32-36 G/DL Red Cell Distribution Width 15.6 H 10.0-14.5 % Platelet Count 296 130-400 10^3/uL Mean Platelet Volume 9.5 7.4-10.4 FL Neutrophils (%) (Auto) 62 42-75 % Lymphocytes (%) (Auto) 23 12-44 % Monocytes (%) (Auto) 10 0-12 % Eosinophils (%) (Auto) 4 0-10 % Basophils (%) (Auto) 1 0-10 % Neutrophils # (Auto) 3.4 1.8-7.8 X 10^3 Lymphocytes # (Auto) 1.3 1.0-4.0 X 10^3 Monocytes # (Auto) 0.6 0.0-1.0 X 10^3 Eosinophils # (Auto) 0.2 0.0-0.3 10^3/uL Basophils # (Auto) 0.1 0.0-0.1 10^3/uL Prothrombin Time 13.4 12.2-14.7 SEC INR Comment 1.1 0.8-1.4 Activated Partial Thromboplast Time 28 24-35 SEC Sodium Level 143 135-145 MMOL/L Potassium Level 3.9 3.6-5.0 MMOL/L Chloride Level 111 H 98-107 MMOL/L Carbon Dioxide Level 22 21-32 MMOL/L Anion Gap 10 5-14 MMOL/L Blood Urea Nitrogen 18 7-18 MG/DL Creatinine 0.89 0.60-1.30 MG/DL Estimat Glomerular Filtration Rate > 60 BUN/Creatinine Ratio 20 Glucose Level 127 H 70-105 MG/DL Calcium Level 9.0 8.5-10.1 MG/DL Total Bilirubin 0.6 0.1-1.0 MG/DL Aspartate Amino Transf (AST/SGOT) 12 5-34 U/L Alanine Aminotransferase (ALT/SGPT) 9 0-55 U/L Alkaline Phosphatase 90 40-136 U/L Total Protein 6.4 6.4-8.2 G/DL Albumin 3.7 3.2-4.5 G/DL My Orders Orders - MARCO ANTONIO MCKINNON Saline Lock/Iv-Start (08/26/16 19:18) Cbc With Automated Diff (08/26/16 19:18) Comprehensive Metabolic Panel (08/26/16 19:18) Protime With Inr (08/26/16 19:18) Partial Thromboplastin Time (08/26/16 19:18) Type And Screen (08/26/16 20:08) Vital Signs/I&O Vital Sign - Last 12Hours 08/26/16 17:25 Temp 98.0 Pulse 68 Resp 16 B/P (MAP) 139/72 Pulse Ox 99 Blood Pressure Mean: 94 Departure Communication Time/Spoke to Admitting Phy: 19:[address] Martin accepts patient to his general surgery service for endoscopy with hemorrhoidal banding in the a.m. Impression Impression: Primary Impression: Lower GI bleeding Additional Impressions: Hemorrhoids Qualified Codes: K64.9 - Unspecified hemorrhoids Anemia Qualified Codes: D64.9 - Anemia, unspecified Disposition: 09 ADMITTED INPATIENT Condition: Stable Decision to Admit Reason: Admit from ER (General) Decision to Admit/Date: Aug 26, 2016 Time/Decision to Admit Time: 19:16 Departure-Patient Inst. Referrals: ESTHER DANIELLE DO (PCP/Family) Primary Care Physician MARCO ANTONIO MCKINNON Aug 26, 2016 17:51
[2016-08-26 19:44] LABS: BASOPHILS # (AUTO) 0.1 10^3/uL (0.0-0.1); BASOPHILS % (AUTO) 1 % (0-10); EOSINOPHILS # (AUTO) 0.2 10^3/uL (0.0-0.3); EOSINOPHILS % (AUTO) 4 % (0-10); LYMPHOCYTES # (AUTO) 1.3 X 10^3 (1.0-4.0); LYMPHOCYTES % (AUTO) 23 % (12-44); MEAN CORPUSCULAR HEMOGLOBIN 25 PG (25-34); MEAN CORPUSCULAR HGB CONC 31 G/DL (32-36); MEAN CORPUSCULAR VOLUME 80 FL (80-99); MEAN PLATELET VOLUME 9.5 FL (7.4-10.4); MONOCYTES # (AUTO) 0.6 X 10^3 (0.0-1.0); MONOCYTES % (AUTO) 10 % (0-12); NEUTROPHILS # (AUTO) 3.4 X 10^3 (1.8-7.8); NEUTROPHILS % (AUTO) 62 % (42-75); PLATELET COUNT 296 10^3/uL (130-400); RED BLOOD COUNT 3.52 10^6/uL (4.35-5.85); RED CELL DISTRIBUTION WIDTH 15.6 % (10.0-14.5); WHITE BLOOD COUNT 5.5 10^3/uL (4.3-11.0)
[2016-08-26 19:54] LABS: INR 1.1 (0.8-1.4); PROTHROMBIN TIME PATIENT 13.4 SEC (12.2-14.7)
[2016-08-26 20:04] LABS: ALANINE AMINOTRANSFERASE 9 U/L (0-55); ALBUMIN 3.7 G/DL (3.2-4.5); ANION GAP 10 MMOL/L (5-14); ASPARTATE AMINO TRANSFERASE 12 U/L (5-34); BILIRUBIN,TOTAL 0.6 MG/DL (0.1-1.0); BLOOD UREA NITROGEN 18 MG/DL (7-18); BUN/CREATININE RATIO 20; CARBON DIOXIDE 22 MMOL/L (21-32); CHLORIDE 111 MMOL/L (98-107); CREATININE SERUM 0.89 MG/DL (0.60-1.30); GFR ESTIMATED > 60; GLUCOSE 127 MG/DL (70-105); POTASSIUM 3.9 MMOL/L (3.6-5.0); SODIUM 143 MMOL/L (135-145); TOTAL PROTEIN 6.4 G/DL (6.4-8.2)
[2016-08-26] MEDS ORDERED: NS IV 1000 ML 1,000 ML ONE (21:34)
--- NOTE | 2016-08-26 21:36 | HISTORY AND PHYSICAL ---
DATE OF SERVICE: 08/26/2016 ATTENDING PRIMARY CARE PHYSICIAN: Dr. Romeo Soni. HISTORY OF PRESENT ILLNESS: The patient is a 81-year-old female who was initially admitted on 08/09/16 for rectal bleeding. She reports that she has had some intermittent episodes of darker stools, as well as red blood per rectum. She was also taking Xarelto for history of atrial fibrillation and coronary artery disease. During that admission, she underwent an EGD and colonoscopy. The EGD showed reflux esophagitis class B, no recurrent hiatal hernia with intact previous wrap, moderate severity gastritis, and no active bleeding. Colonoscopy showed chronic between stage 2 and 3 external/internal hemorrhoids with old clotted blood within the rectal vault. There is no active bleeding identified. The patient is status post sigmoid colon resection and the area of anastomosis was widely patent. There was some blood; however, this was all distal to the anastomosis and within a few inches from the anus. Again, she was on anticoagulation at that time and the most likely etiology of her bleeding was due to an internal hemorrhoidal plexus. The remainder of the colon proximal to the anastomosis was completely clear with no signs of bleeding. She was treated conservatively and was able to do better with no rectal bleeding and she continued to hold her Xarelto and was discharged home. She reports that she continued to have intermittent episodes of blood per rectum. She was seen in the office yesterday where a small amount of dried blood was identified near the anal region. She did not report any systemic symptoms of weakness, fatigue, or any vasovagal episodes. Again, the etiology of her bleeding was most likely due to internal hemorrhoidal bleeding and she did have a series or lab work drawn which did show a stable hemoglobin. Recommendations at the time were to continue to wait and high fiber diet, in hopes of resolution of the bleeding from the internal hemorrhoidal cushion. She states that in the past day she continued to have rectal bleeding and presented to the emergency department. There was no active bleeding identified, however, some dried blood around the anus was identified. Her hemoglobin was 8.8 upon admission. PAST MEDICAL HISTORY: Atrial fibrillation, coronary artery disease, hypertension, bilateral lower extremity edema, cardiomyopathy, history of PVCs, chronic urinary tract infections, gastroesophageal reflux disease, osteoporosis, arthritis, hypothyroid, diabetes, glaucoma, anxiety, depression. PAST SURGICAL HISTORY: Thyroidectomy, ORIF right lower leg, appendectomy, cholecystectomy, hysterectomy/, thyroidectomy, tonsillectomy, hiatal hernia repair and antireflux procedure. ALLERGIES: PENICILLIN, SULFA, AZITHROMYCIN, CEPHALEXIN, ERYTHROMYCIN, FUROSEMIDE, NITROFURANTOIN, TETRACYCLINE. MEDICATIONS: Alprazolam 0.25 mg q. 8 hours p.r.n., amiodarone 100 mg daily, vitamin B12 injection monthly, famotidine 20 mg p.r.n., fexofenadine 180 mg daily, irbesartan 300 mg daily, latanoprost eyedrops daily, levothyroxine 50 mcg daily, Reglan p.r.n., montelukast 10 mg daily, potassium 10 mEq daily, previous Xarelto, however, this has been held for the past 10 days. SOCIAL HISTORY: Negative smoke, negative alcohol. FAMILY HISTORY: Father, hypertension, stroke. Brother, hypertension. VITAL SIGNS: Temperature 98.0, blood pressure 139/72, pulse 68, respirations 16, pulse ox 99% on room air. REVIEW OF SYSTEMS: A well-nourished female currently in no acute distress. She is not experiencing any shortness of breath or difficulty breathing. No chest pain, palpitations, diaphoresis. No nausea, vomiting. No diarrhea, constipation, with intermittent episodes of small amounts of red blood as well as slightly darker blood per rectum. No fever, chills. No recent inadvertent weight loss. PHYSICAL EXAMINATION: CHEST: A few scattered rales and rhonchi bilaterally. HEART: Regular. EXTREMITIES: +1/3 bilateral lower extremity edema. Negative Homans sign. HEENT: No scleral icterus. No cervical lymphadenopathy. ABDOMEN: Soft, nontender, nondistended. LABS: WBC 5.5, hemoglobin 8.8, hematocrit 28, platelets 296, BUN 18, creatinine 0.89, liver function enzymes are normal. PT 13.4, INR 1.1, PTT 28. ASSESSMENT AND PLAN: A 81-year-old female with persistent rectal bleeding most likely due to irritated internal hemorrhoidal plexus. Despite medical management, she continues to bleed. She did have a colonoscopy which did not show any proximal colonic bleeding and all of the bleeding appeared to be within the anus and approximately 10 cm proximal to this. Again, this most likely represents internal hemorrhoidal bleeding. Due to her continued symptoms, we will proceed with a proctoscopy and anal exam under anesthesia, as well as hemorrhoidal banding versus formal internal hemorrhoidal resection. Job ID: [id number] DocumentID: [id number] Dictated Date: 08/26/2016 20:55:01 Middle School Tutor Date: 08/26/2016 21:36:41 Dictated By: ALAINA IRVING MD
[2016-08-26] MEDS: NS IV 1000 ML 1,000 ML IV SCH (21:40)
[2016-08-26] MEDS ORDERED: CATHETER FLUSH 10 ML SYR IV PRN (22:00)
[2016-08-26] MEDS ORDERED: HYDROcodone/APAP 5 MG/325 MG (LORTAB) TAB PO PRN (22:00)
[2016-08-26] MEDS: CATHETER FLUSH 10 ML SYR IV SCH (22:57)
[2016-08-27] VITALS: BP 137/63
[2016-08-27] MEDS: ONDANSETRON 4 MG/2 ML (SDV) Z0FRAN IV PRN ×3 (03:23→19:11)
[2016-08-27 04:19] VITALS: BP 133/63
[2016-08-27 04:38] LABS: BASOPHILS # (AUTO) 0.1 10^3/uL (0.0-0.1); BASOPHILS % (AUTO) 2 % (0-10); EOSINOPHILS # (AUTO) 0.2 10^3/uL (0.0-0.3); EOSINOPHILS % (AUTO) 4 % (0-10); LYMPHOCYTES # (AUTO) 1.6 X 10^3 (1.0-4.0); LYMPHOCYTES % (AUTO) 33 % (12-44); MEAN CORPUSCULAR HEMOGLOBIN 25 PG (25-34); MEAN CORPUSCULAR HGB CONC 32 G/DL (32-36); MEAN CORPUSCULAR VOLUME 80 FL (80-99); MEAN PLATELET VOLUME 9.9 FL (7.4-10.4); MONOCYTES # (AUTO) 0.4 X 10^3 (0.0-1.0); MONOCYTES % (AUTO) 8 % (0-12); NEUTROPHILS # (AUTO) 2.5 X 10^3 (1.8-7.8); NEUTROPHILS % (AUTO) 53 % (42-75); PLATELET COUNT 265 10^3/uL (130-400); RED BLOOD COUNT 3.29 10^6/uL (4.35-5.85); RED CELL DISTRIBUTION WIDTH 15.5 % (10.0-14.5); WHITE BLOOD COUNT 4.7 10^3/uL (4.3-11.0)
[2016-08-27] MEDS: NS IV 1000 ML 1,000 ML IV SCH ×4 (04:53→21:13)
[2016-08-27 05:02] LABS: ANION GAP 10 MMOL/L (5-14); BLOOD UREA NITROGEN 15 MG/DL (7-18); BUN/CREATININE RATIO 19; CALCIUM 8.5 MG/DL (8.5-10.1); CARBON DIOXIDE 18 MMOL/L (21-32); CHLORIDE 114 MMOL/L (98-107); GFR ESTIMATED > 60; GLUCOSE 123 MG/DL (70-105); POTASSIUM 3.8 MMOL/L (3.6-5.0); SODIUM 142 MMOL/L (135-145)
[2016-08-27] MEDS: CATHETER FLUSH 10 ML SYR IV SCH ×3 (06:34→21:03)
[2016-08-27 08:00] VITALS: BP 136/60
[2016-08-27] MEDS ORDERED: HYDR25SU28 RC (08:33)
[2016-08-27] MEDS ORDERED: SUCR1TAB PO (08:33)
[2016-08-27] MEDS ORDERED: AMLO5TAB2 PO (08:33)
[2016-08-27] MEDS ORDERED: DOCU-143 PO (08:33)
[2016-08-27] MEDS ORDERED: OMEP20CA12 PO (08:33)
[2016-08-27] MEDS ORDERED: LACTATED RINGERS 1,000 ML IV PRN ×2 (11:23→16:11)
[2016-08-27 12:00] VITALS: BP 153/79
[2016-08-27] MEDS ORDERED: FAMOTIDINE 20MG/2ML IV (PEPCID) IV ONE (12:00)
[2016-08-27] MEDS ORDERED: ALPRAZolam 0.25 MG (XANAX) TAB PO ONE (12:00)
--- NOTE | 2016-08-27 14:08 | Progress Note-Pre Operative ---
Pre-Operative Progress Note H&P Reviewed The H&P was reviewed, patient examined and no changes noted. Date H&P Reviewed: Aug 27, 2016 Time H&P Reviewed: 14:08 Pre-Operative Diagnosis: persistent bleeding internal hemorrhoids. ALAINA IRVING MD Aug 27, 2016 2:08 pm
[2016-08-27] MEDS ORDERED: morphine INJ 10 MG/ML 1ML (SYR OR VIAL) ONE (15:21)
[2016-08-27] MEDS ORDERED: SEVOFLURANE (ULTANE) 15 ML INHAL SOLN ONE ×4 (15:42→16:51)
[2016-08-27] MEDS ORDERED: proPOfol 200 MG/20 ML (DIPRIVAN) VIAL IV ONE (15:42)
[2016-08-27] MEDS ORDERED: LACTATED RINGERS 1,000 ML IV ONE (15:42)
[2016-08-27] MEDS ORDERED: MIDAZOLAM 2 MG/2 ML (VERSED) VIAL ONE (15:43)
[2016-08-27] MEDS ORDERED: fentaNYL INJECTION 100 MCG/2 ML AMP ONE (15:43)
[2016-08-27] MEDS ORDERED: LIDOCAINE PF 2% 10 ML (XYLOCAINE) AMP ONE (15:44)
[2016-08-27] MEDS ORDERED: LIDOCAINE/EPI 1%-1:100,000 (XYLOCAINE) 20ML ONE ×2 (15:46→16:16)
[2016-08-27] MEDS ORDERED: BUPIVACAINE 0.5% 30 ML (SENSORCAINE) VIAL ONE ×2 (15:46→16:16)
[2016-08-27] MEDS ORDERED: LEVOFLOXACIN 500 MG/100 ML IV 100 ML ONE (16:05)
[2016-08-27] MEDS ORDERED: LEVOFLOXACIN 500 MG/100 ML IV 100 ML IV ONE (16:15)
[2016-08-27] MEDS ORDERED: LIDOCAINE/EPI 1%-1:100,000 (XYLOCAINE) 20ML INJ ONE (16:30)
[2016-08-27] MEDS ORDERED: BUPIVACAINE 0.5% 30 ML (SENSORCAINE) VIAL INJ ONE (16:30)
--- NOTE | 2016-08-27 17:02 | Progress Note-Post Operative ---
Post-Operative Progess Note Surgeon (s)/Dough Cutter (s) Surgeon ALAINA IRVING MD Dough Cutter: nydia acosta LPC Pre-Operative Diagnosis persistent bleeding internal hemorrhoids. Post-Operative Diagnosis bleeding internal hemorrhoids, rectal prolapse. Post-Op Procedure Note Date of Procedure: Aug 27, 2016 Name of Procedure Performed: anorectal exam under anesthesia, hemorrhoidal banding. Description of the Procedure: anorectal exam under anesthesia, hemorrhoidal banding. Findings of the Procedure . Anesthesia Type general LMA Estimated blood loss (mL): 200ml Packing: anus Specimen(s) collected/removed none ALAINA IRVING MD Aug 27, 2016 5:02 pm
[2016-08-27] MEDS ORDERED: fentaNYL INJECTION 100 MCG/2 ML AMP IVP PRN (17:15)
[2016-08-27] MEDS ORDERED: morphine INJ 10 MG/ML 1ML (SYR OR VIAL) IVP PRN (17:15)
[2016-08-27 18:00] VITALS: BP 151/67
--- NOTE | 2016-08-27 18:11 | OPERATIVE REPORT ---
DATE OF SERVICE: 08/27/2016 PRIMARY CARE PHYSICIAN: Martinez Soni DO PREOPERATIVE DIAGNOSIS: Persistent rectal bleeding. POSTOPERATIVE DIAGNOSIS: Multiple areas of bleeding internal hemorrhoids. Appears to be some level of rectal prolapse. PROCEDURE: Anorectal exam under anesthesia. Multiple internal hemorrhoidal banding. WHIP SAWYER: Kenny Najera APRN ANESTHESIA: General laryngeal mask airway. ESTIMATED BLOOD LOSS: 200 mL FINDINGS: There was a significant amount of redundant rectal mucosa most likely consistent with rectal prolapse. There was also stage III internal hemorrhoids with multiple areas of bleeding which were banded. The external hemorrhoids were less severe and approximately stage II. No solitary rectal ulcers identified. DISPOSITION: The patient tolerated the procedure well. INDICATION FOR PROCEDURE: The patient is a 81-year-old female who was initially admitted on 08/09/2016 for rectal bleeding. She has had some intermittent episodes of darker stools as well as red blood per rectum. She was taking Xarelto for history of atrial fibrillation and coronary artery disease. During that admission she underwent an EGD and colonoscopy. The EGD showed a reflux esophagitis class C with no recurrent hiatal hernia with an intact previous wrap and moderate severity gastritis and no active bleeding. Colonoscopy showed chronic between stage II and stage III external hemorrhoids with old clotted blood within the rectal vault. There was no active bleeding identified. The patient is status post sigmoid colon resection and all of the old blood was contained within the distal anastomosis a few inches from the anus. The remainder of the colon proximal to the anastomosis was completely clear and no signs of old or new bleeding. We treated her conservatively and she did not have any rectal bleeding and she was discharged home. She reported that she had continued intermittent episodes of blood per rectum. She was seen in the office recently and a small amount of dried blood was identified near the anal region. She did not report any systemic symptoms of weakness, fatigue or any vasovagal episodes. She did have stable hemoglobin upon serial lab work. However, she continued to bleed. She was admitted where her hemoglobin was found to be decreased at 8.8 as well as a followup hemoglobin of 8.3. We will proceed with an anal exam under anesthesia as well as hemorrhoidal banding. DESCRIPTION OF PROCEDURE: The patient was brought to the operating room, laid supine on the table. After adequate IV pain and sedating medications and general laryngeal mask airway intubation, the patient was placed in the lithotomy position and the perineum prepped and draped in standard surgical fashion. The pudendal nerves were then anesthetized using 1% lidocaine. A digital rectal examination was performed. There were copious amounts of dark maroon stools as well as small streaks of bright red blood. Once the anal sphincter was relaxed a large retractor was placed visualizing a redundant rectal mucosa, most likely consistent with some level of rectal prolapse. There were no solitary rectal ulcers identified. There were several areas of bleeding identified within stage III internal hemorrhoids which were actively bleeding. Within the 3 larger hemorrhoidal cushions, 2 of these appeared to be bleeding and 3 bands were placed on these internal hemorrhoidal cushions and good hemostasis was observed. The remainder of the rectum was suctioned out and we waited approximately 15 minutes and reexamined the rectum and anus and there was no old or new blood identified. Gelfoam covered in Surgicel with Surgilube was then placed into the anorectal canal for hemostasis. This will be removed during her first bowel movement. The anus was then covered with gauze followed by ABD then mesh pants. The patient tolerated the procedure well. We will give her packed red blood cells and check a hemoglobin in the morning. We will also start a clear liquid diet and advance as tolerated. We will continue to hold the Xarelto for now. Job ID: [id number] DocumentID: [id number] Dictated Date: 08/27/2016 17:15:36 Medical Officer Psychiatry Date: 08/27/2016 18:10:29 Dictated By: ALAINA IRVING MD
[2016-08-27 19:30] VITALS: BP 116/64
[2016-08-27] MEDS: fentaNYL INJECTION 100 MCG/2 ML AMP IV PRN (21:16)
[2016-08-28 00:15] VITALS: BP 137/70
[2016-08-28] MEDS: ONDANSETRON 4 MG/2 ML (SDV) Z0FRAN IV PRN (02:53)
[2016-08-28] MEDS: NS IV 1000 ML 1,000 ML IV SCH (04:15)
[2016-08-28] MEDS: fentaNYL INJECTION 100 MCG/2 ML AMP IV PRN ×2 (04:15→09:50)
[2016-08-28 04:20] VITALS: BP 143/62
[2016-08-28 05:02] LABS: MEAN PLATELET VOLUME 10.1 FL (7.4-10.4); RED BLOOD COUNT 3.3 10^6/uL (4.35-5.85); RED CELL DISTRIBUTION WIDTH 15.4 % (10.0-14.5); WHITE BLOOD COUNT 6.6 10^3/uL (4.3-11.0)
[2016-08-28 05:20] LABS: ANION GAP 10 MMOL/L (5-14); BLOOD UREA NITROGEN 10 MG/DL (7-18); BUN/CREATININE RATIO 12; CALCIUM 8.2 MG/DL (8.5-10.1); CARBON DIOXIDE 18 MMOL/L (21-32); CHLORIDE 112 MMOL/L (98-107); CREATININE SERUM 0.82 MG/DL (0.60-1.30); GFR ESTIMATED > 60; GLUCOSE 112 MG/DL (70-105); POTASSIUM 3.8 MMOL/L (3.6-5.0); SODIUM 140 MMOL/L (135-145)
[2016-08-28] MEDS: CATHETER FLUSH 10 ML SYR IV SCH (05:48)
--- NOTE | 2016-08-28 10:02 | Progress Note (SOAP) ---
Subjective Subjective/Events-last exam doing ok. no signs of clinical bleeding. no BM since procedure yesterday. Hb stable at 8.0. Objective Exam Vital Signs Date Time Temp Pulse Resp B/P (MAP) Pulse Ox O2 Delivery O2 Flow Rate FiO2 08/28/16 04:20 99.4 54 18 143/62 94 Room Air 08/28/16 00:15 98.9 58 20 137/70 98 Room Air 08/27/16 19:30 96.3 54 18 116/64 98 Room Air 08/27/16 18:00 95.0 55 20 151/67 94 Room Air 08/27/16 12:00 97.4 56 18 153/79 93 Room Air I & O 08/28/16 07:00 Intake Total 3640 ml Output Total 4953 ml Balance -1313 ml Capillary Refill : Less Than 3 Seconds General Appearance: No Apparent Distress HEENT: PERRL/EOMI Neck: Full Range of Motion Respiratory: Chest Non Tender, Lungs Clear, Normal Breath Sounds Cardiovascular: Regular Rate, Rhythm Gastrointestinal: normal bowel sounds, non tender, soft Extremity: Normal Capillary Refill Neurologic/Psychiatric: Alert, Oriented x3 Skin: Normal Color Lymphatic: No Adenopathy Results Lab Laboratory Tests 08/28/16 04:08: White Blood Count 6.6, Red Blood Count 3.30L, Hemoglobin 8.0L, Hematocrit 26L, Mean Corpuscular Volume 80, Mean Corpuscular Hemoglobin 24L, Mean Corpuscular Hemoglobin Concent 30L, Red Cell Distribution Width 15.4H, Platelet Count 261, Mean Platelet Volume 10.1, Sodium Level 140, Potassium Level 3.8, Chloride Level 112H, Carbon Dioxide Level 18L, Anion Gap 10, Blood Urea Nitrogen 10, Creatinine 0.82, Estimat Glomerular Filtration Rate > 60, BUN/Creatinine Ratio 12, Glucose Level 112H, Calcium Level 8.2L Microbiology 08/27/16 MRSA Screen - Final, Complete MRSA not isolated Assessment/Plan Assessment/Plan Assess & Plan/Chief Complaint persistent lower GI bleed secondary internal hemorrhoids and previous anticoagulation. s/p hemorrhoidal banding. clinically no bleeding with stable Hb. will tranfuse 2 units PRBC. Clinical Quality Measures DVT/VTE Risk/Contraindication: Risk Factor Score Per Nursin RFS Level Per Nursing on Admit: 2=Moderate ALAINA IRVING MD Aug 28, 2016 10:02 am
--- NOTE | 2016-08-28 10:21 | Consultation-Hospitalist ---
HPI History of Present Illness: HPI/Chief Complaint CC: Rectal bleeding HPI: This is a 81yoWF pt of Dr. Soni's that was originally admitted on due to rectal bleeding. Pt was on Xarelto for AF at that time, and underwent endoscopy which showed esophagitis with large hemorrhoids. She was then DCd to home. She continues to have episodes of rectal bleeding and Hgb was 8.8 on admission. She underwent proctoscopy and banded hemorrhoids. Hgb 8.0 and BMP normal. clinical engineering director: Hgb 8 so pt will receive 2 units of RBCs per Dr. Martin's orders. Banding and plug were performed. Patient Interview: Dr. Kitchen informs pt that she will be receiving 2 units of blood due to Hgb of 8.0, and will likely move to in-pt status for monitoring over the weekend. Pt agrees with this plan since she has nobody to stay with at home. Physical exam stable. Pt ambulated to her chair for breakfast. Pt claims that she has been running a low-grade fever. Pt has a CPAP at home, and will try to have a friend bring it. Scribed by Yinka Chowdhury under the direct supervision of Dr. Kitchen. Source: patient Date Seen 08/28/16 Attending Physician Nader Martin MD, William J DO Referring Physician Date of Admission Aug 26, 2016 at 19:35 Home Medications & Allergies Home Medications Reviewed patient Home Medication Reconciliation Form Allergies Allergies Coded Allergies Penicillins (Verified Allergy, Unknown, 07/26/07) Shellfish (Verified Allergy, Unknown, 07/26/07) Sulfa (Sulfonamide Antibiotics) (Verified Allergy, Unknown, 07/26/07) azithromycin (Unverified Allergy, Unknown, ITCHING, 08/05/13) cephalexin (Verified Allergy, Unknown, 07/26/07) erythromycin base (Verified Allergy, Unknown, 07/26/07) furosemide (Verified Allergy, Unknown, 07/26/07) nitrofurantoin (Unverified Allergy, Unknown, ITCHING/"THICK TONGUE", 08/05/13) tetracycline (Verified Allergy, Unknown, 07/26/07) Uncoded Allergies TAPE ( Allergy, Unknown, 07/26/07) Past Sobdyyl-Lombmv-Zqpbew Hx Patient Social History Marrital Status: single Employed/Student: retired Alcohol Use: Denies Use Recreational Drug Use: Yes Smoking Status: Never a Smoker Physical Abuse Screen: No Sexual Abuse: No Recent Foreign Travel: No Contact w/other who traveled: No Recent Hopitalizations: No Recent Infectious Disease Expo: No Immunizations Up To Date Tetanus Booster (TDap): Less than 5yrs Date of Pneumonia Vaccine: October 03, 2010 Date of Influenza Vaccine: Feb 08, 2012 Seasonal Allergies Seasonal Allergies: Yes Surgeries HX Surgeries: Yes Surgeries: Abdominal, Appendectomy, Gallbladder, Hysterectomy, Rectal, Thyroidectomy, Tonsillectomy Respiratory Hx Respiratory Disorders: No Cardiovascular Hx Cardiovascular Disorders: Yes (PVC'S, ENLARGED HEART) Cardiac Disorders: Atrial Fibrillation, Cardiomyopathy, Chronic Edema/Swelling , Coronary Artery Disease, Hypertension Neurological Hx Neurological Disorders: No 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 System Hx 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 Disorders: No Genitourinary Hx Genitourinary Disorders: Yes (DOUBLE COLLECTING SYSTEM) Genitourinary Disorders: UTI-Chronic Gastrointestinal Hx Gastrointestinal Disorders: Yes Gastrointestinal Disorders: Gastroesophageal Reflux, Gastrointestinal Bleed, Hemorrhoids, Esophagitis, Ulcer Musculoskeletal Hx Musculoskeletal Disorders: Yes (OSTEOARTHRITIS, FX RIGHT LOWER LEG, DISLOCATED RIGHT SHOULDER) Musculoskeletal Disorders: Osteoporosis, Arthritis, Fractures Endocrine Hx Endocrine Disorders: Yes (THYROIDECTOMY; "PREDIABETIC" PER PT ON 02/13/16 -- NO MEDICATIONS) Endocrine Disorders: Hypothyroidsim, Diabetes, Non-Insulin dep HEENT HX ENT Disorders: Yes HEENT Disorders: Glaucoma Hearing Impairment: Hard of Hearing Cancer Hx Cancer: No Psychosocial Hx Psychiatric Problems: Yes Behavioral Health Disorders: Anxiety, Depression Integumentary HX Skin/Integumentary Disorder: No Blood Transfusions Hx Blood Disorders: Yes (ANEMIA) Adverse Reaction to a Blood Tr: No Reviewed Nursing Assessment Reviewed/Agree w Nursing PMH: Yes Family Medical History Significant Family History: No Pertinent Family Hx Family Hx: Family history: Hypertension 03 FATHER, Onset:40's - 50 09 BROTHER, Onset:40's - 50 History of drug abuse 03 FATHER, Onset:20's - 25 Stroke 03 FATHER, Onset:60 years & older Review of Systems Constitutional: see HPI, malaise, weakness EENTM: no symptoms reported Respiratory: no symptoms reported Cardiovascular: no symptoms reported Gastrointestinal: loss of appetite, melena, nausea Genitourinary: no symptoms reported Musculoskeletal: no symptoms reported Skin: no symptoms reported Psychiatric/Neurological: No Symptoms Reported All Other Systems Reviewed Negative Unless Noted: Yes Physical Exam Physical Exam Vital Signs Vital Sign - Last 12Hours 08/26/16 08/27/16 17:25 00:00 Temp 98.0 Pulse 68 Resp 16 B/P (MAP) 139/72 Pulse Ox 99 O2 Delivery Room Air Capillary Refill : Less Than 3 Seconds General Appearance: No Apparent Distress, WD/WN, Chronically ill, Other (pale) Eyes: Bilateral Eye Normal Inspection, Bilateral Eye PERRL HEENT: PERRL/EOMI, Normal ENT Inspection, Pharynx Normal Neck: Full Range of Motion, Normal Inspection, Non Tender, Supple, Carotid Bruit Respiratory: Chest Non Tender, Lungs Clear, Normal Breath Sounds, No Accessory Muscle Use, No Respiratory Distress Cardiovascular: No Edema, No Gallop, No JVD, No Murmur, Normal Peripheral Pulses, Irregularly Irregular Gastrointestinal: Normal Bowel Sounds, No Organomegaly, No Pulsatile Mass, Non Tender, Soft Back: Normal Inspection, No CVA Tenderness, No Vertebral Tenderness Extremity: Normal Capillary Refill, Normal Inspection, Normal Range of Motion, Non Tender, No Calf Tenderness, No Pedal Edema Neurologic/Psychiatric: Alert, Oriented x3, No Motor/Sensory Deficits, Depressed Affect Skin: Normal Color, Warm/Dry Lymphatic: No Adenopathy Results Results/Procedures Lab Laboratory Tests 08/26/16 19:37 08/27/16 04:18 08/28/16 04:08 Assessment/Plan Admission Diagnosis Assessment: Rectal bleeding- Severe requiring transfusion AF Cognitive decline requiring ditch tender at [facility] DAMASO on CPAP Assessment and Plan Plan: Case management to switch to in-pt status 2 units of blood per Dr. Martin's orders PT IS Clinical Quality Measures DVT/VTE Risk/Contraindication: Risk Factor Score Per Nursin RFS Level Per Nursing on Admit: 2=Moderate ALMA KITCHEN DO Aug 28, 2016 10:21
[2016-08-28] MEDS ORDERED: NS IV 500 ML 500 ML ONE (10:53)
[2016-08-28 11:02] VITALS: BP 130/71
[2016-08-28 11:17] VITALS: BP 126/71
[2016-08-31] MEDS ORDERED: HYDR-3812 PO (09:21)
== END 2016-08-28 12:31 | disposition swing bed (61) ==
LOC: EDUNIT# 17:14 → ER 17:17 → 4TH 19:35 → SDC 19:35 → UNDOADMOB 19:35 → UNDODISOB 08-28 12:31 → SDC 08-28 12:31
PROVIDERS: ATTEND Surgery Pediatric Surgery
DX: K64.2 Third degree hemorrhoids (principal); K62.3 Rectal prolapse; I48.91 Unspecified atrial fibrillation; I25.10 Atherosclerotic heart disease of native coronary artery without angina pectoris; Z79.01 Long term (current) use of anticoagulants; I42.9 Cardiomyopathy, unspecified; K21.9 Gastro-esophageal reflux disease without esophagitis; M81.0 Age-related osteoporosis without current pathological fracture; E03.9 Hypothyroidism, unspecified; E11.9 Type 2 diabetes mellitus without complications; F32.9 Major depressive disorder, single episode, unspecified; F41.9 Anxiety disorder, unspecified; H91.90 Unspecified hearing loss, unspecified ear; G47.33 Obstructive sleep apnea (adult) (pediatric)
CPT/HCPCS: 36415; 80048; 80053; 85025; 85027; 85610; 85730; 86850; 86900; 86901; 86920; 87081

== ENCOUNTER 2016-08-28 11:00 | Inpatient (IN) | payer MEDICARE, MEDICAID ==
[~2016-08-28] VITALS: Ht 167.6 cm; Wt 77.4 kg
[~2016-08-28 11:00] MED LIST changes: +AMLO5TAB2 PO
[2016-08-28] MEDS ORDERED: ONDANSETRON 4 MG/2 ML (SDV) Z0FRAN IVP PRN (11:15)
[2016-08-28] MEDS ORDERED: fentaNYL INJECTION 100 MCG/2 ML AMP IVP PRN (11:15)
[2016-08-28] MEDS ORDERED: CATHETER FLUSH 10 ML SYR IV PRN (13:00)
[2016-08-28] MEDS: HYDROcodone/APAP 5 MG/325 MG (LORTAB) TAB PO PRN (13:57)
[2016-08-28 14:00] VITALS: BP 130/74
--- NOTE | 2016-08-28 14:24 | Physical Therapy Evaluation ---
PT Evaluation-General Medical Diagnosis Admission Date Aug 28, 2016 at 12:32 Medical Diagnosis: anemia Onset Date: Aug 26, 2016 Therapy Diagnosis Therapy Diagnosis: generalized weakness Height/Weight Height (Feet): 5 Height (Inches): 6.00 Weight (Pounds): 170 Weight (Ounces): 9.0 Precautions Precautions/Isolations: Standard Precautions Referral Physician: Sheila Reason for Referral: Evaluation/Treatment Medical History Pertinent Medical History: Atrial Fib, Arthritis, CAD, DM, HTN, Hypothroidism Additional Medical History CPAP at home Current History rectal bleeding Reviewed History: Yes Social History Home: Apartment Current Living Status: Alone (caregiver 4hr/5days) Entry Into Home: Level Entry Prior/Core FIM Prior Level of Function Functional [place] Measure 0=Not Assessed/NA 4=Minimal Assistance 1=Total Assistance 5=Supervision or Setup 2=Maximal Assistance 6=Modified [place] 3=Moderate Assistance 7=Complete [place] Bed Mobility: 6 Transfers (B,C,W/C) (FIM): 6 Gait: 6 4WW PLOF PT Evaluation-Current Subjective Patient agrees to PT. No c/o at this time. Pain Numeric Pain Scale: 0-No Pain Location: No Pain Reported Objective Patient Orientation: Normal For Age Problem Solving: Good ROM/Strength ROM Lower Extremities bilateral LE WFL Strenght Lower Extremities bilateral LE WFL (4/5 grossly) Integumentary/Posture Integumentary refer to nursing notes Bowel Incontinence: No Posture WNL Neuromuscular (Tone, Coordination, Reflexes) grossly intact Sensory Vision: Functional Hearing: Functional Sensation Right Lower Extremit: Impaired Sensation Left Lower Extremity: Impaired Transfers Functional [place] Measure 0=Not Assessed/NA 4=Minimal Assistance 1=Total Assistance 5=Supervision or Setup 2=Maximal Assistance 6=Modified [place] 3=Moderate Assistance 7=Complete [place] Transfers (B, C, W/C) (FIM): 6 Scootin Rollin Supine to/from Sit: 6 Sit to/from Stand: 6 Sit to Lying (QC): 5 Lying to Sitting/Side of Bed(Q: 5 Sit to Stand (QC): 5 Chair/Arf-na-Wdvbk Xfer(QC): 5 Gait Does the Patient Walk?: Yes Mode of Locomotion: Walk Anticipated Mode of Locomotion: Walk Gait (FIM): 6 Distance (FIM): 3=150 ft Distance: 250' x 1; 100' x 1 Walk 50 ft with 2 Turns(QC): 5 Walk 150 ft (QC): 5 Gait Level of Assist: 6 Gait Assistive Device: FWW Comments/Gait Description safe and functional with FWW; slow, steady functional gait Balance Sitting Static: Normal Sitting Dynamic: Normal Standing Static: Normal Standing Dynamic: Normal Treatment Gait training with FWW 250' x 1; 100' x 1 modified independent with safe functional gait sequence. Patient education on ambulating PRN in hallway with or without nursing due to advanced LOF. Assessment/Needs 81 y.o. female, will benefit from short term skilled PT to address functional strength and mobility to improve current LOF and to safely return to home at maximum LOF. Rehab Potential: Good PT Jail Goals Editor News Goals PT Editor News Goals Time Frame: Sep 04, 2016 Transfers (B,C,W/C) (FIM): 6 Sit to Lying (QC): 6 Lying-Sitting on Side/Bed(QC): 6 Sit to Stand (QC): 6 Rollin Chair/Yla-gw-Nampu Xfer(QC): 6 Does the Patient Walk: Yes Gait (FIM): 6 Gait distance (FIM): 3=150 ft Walk 50ft with 2 Turns (QC): 6 Walk 150 ft (QC): 6 Gait Level of Assist: 6 Gait Assistive Device: FWW PT Plan Problem List Problem List: Activity Tolerance Treatment/Plan Treatment Plan: Continue Plan of Care Treatment Plan: Education, Functional Activity [place], Functional Strength, Gait , Safety, Therapeutic Exercise, Transfers Treatment Duration: Sep 04, 2016 # of days/week 6 Visits Per Week: 6 Minutes/Day (M-F): 15-30 Minutes/Day (Sat/Gibbons): PRN Pt/Family Agrees w/Plan: Yes Safety Risks/Education Patient Education: Gait Training Teaching Recipient: Patient Teaching Methods: Demonstration, Discussion Response to Teaching: Verbalize Understanding, Return Demonstration Time/GCodes Time In: 1325 Time Out: 1348 Total Billed Treatment Time: 23 Total Billed Treatment 1 visit Jackeline 8 min GT 15 min MATILDE PEGUERO PT Aug 28, 2016 14:24
--- NOTE | 2016-08-28 14:41 | Anesthesia-General Post-Op ---
General Patient Condition Mental Status/LOC: Same as Preop Cardiovascular: Satisfactory Nausea/Vomiting: Absent Respiratory: Satisfactory Pain: Controlled Complications: Absent Post Op Complications Complications None Follow Up Care/Instructions Patient Instructions None needed. Anesthesia/Patient Condition Patient Condition Patient is doing well, no complaints, stable vital signs, no apparent adverse anesthesia problems. No complications reported per nursing. ROCHELLE KASPER CRNA Aug 28, 2016 14:41
[2016-08-28 15:25] VITALS: BP 128/72
--- NOTE | 2016-08-28 15:34 | Occupational Therapy Eval ---
OT Evaluation-General/PLF Medical Diagnosis Admission Date Aug 28, 2016 at 12:32 Medical Diagnosis: anemia Onset Date: Aug 26, 2016 Therapy Diagnosis Therapy Diagnosis: debility Height/Weight Height (Feet): 5 Height (Inches): 6.00 Weight (Pounds): 170 Weight (Ounces): 9.0 Precautions Precautions/Isolations: Standard Precautions Safety Interventions: None Referral Physician: Sheila Medical History Pertinent Medical History: Atrial Fib, Arthritis, CAD, DM, HTN, Hypothroidism Additional Medical History bilateral LE edema, cardiomyopathy, osteoporosis, glaucoma, anxiety, ORIF right lower leg Social History Home: Apartment ([facility]) Current Living Status: Alone (caregiver 4hr/5days) Entry Into Home: Level Entry ADL-Prior Level of Function ADL PLOF Comments Pt reports being independent with basic self care. Has caregiver to assist with housework, cooking, and shopping. Also supervises tub/shower transfers. Uses FWW PRN DME/Equipment: Bath Chair, Grab Bars, Tub/Shower, Toilet/Riser Drive Self: No OT Current Status Subjective Pt in bed, agrees to therapy. Pt has no c/o pain, but states she is tired today. Mental Status/Objective Patient Orientation: Person, Place, Situation Attachments: IV Current Glasses/Contacts: Yes Hearing Aids: No Dentures/Partials: Yes (upper) Hand Dominance: Right Upper Extremity ROM slightly decreased shoulder ROM, remainder grossly WFL Upper Extremity Coordination Intact Upper Extremity Sensation Intact per pt report Upper Extremity Strength Grossly 4-/5 ADL-Treatment ADL-Current Pt supine to sit with modified independence. Pt participated in UE assessment while seated EOB. Pt donned slip on shoes without assistance while seated EOB. Sit to stand with modified independence. Gait to restroom without LOB. Pt completed toilet transfer and toileting with SBA. Stood at sink to wash hands with SBA. Pt returned to EOB and completed sit to supine with modified independence. Pt in bed with needs met and RN present after session. Functional [place] Measure 0=Not Assessed/NA 4=Minimal Assistance 1=Total Assistance 5=Supervision or Setup 2=Maximal Assistance 6=Modified [place] 3=Moderate Assistance 7=Complete IndependenceIRFPAI Quality Coding Scale 6 Independent with activity with or without an assistive device 5 Patient requires set up or clean up by helper. Patient completes activity by themselves 4 Supervision or touching assist (CGA). [place] provide cues , steadying assist 3 The helper provides less than half the effort to complete the activity 2 The helper provides more than half the effort to complete the activity 1 Dependent. The helper does all the effort to complete an activity 7 Patient refused to complete or attempt activity 9 The patient did not perform the activity before the current illness or injury 88 Not attempted due to Medical conditions or safety concerns Eating (FIM): 5 (Pt reports occasional assistance to open containers) Eating (QC): 5 Grooming (FIM): 5 (Pt states she completed grooming and oral care this morning after set up) Oral Hygiene (QC): 5 Toileting (FIM): 5 Toileting Hygiene (QC): 4 Toilet/Commode Transfer (FIM): 5 Toilet Transfer (QC): 5 Education OT Patient Education: Rehab process Teaching Recipient: Patient Teaching Methods: Discussion Response to Teaching: Verbalize Understanding OT Short Term Goals Short Term Goals 1=Demonstrate adherence to instructed precautions during ADL tasks. 2=Patient will verbalize/demonstrate understanding of assistive devices/ modifications for ADL. 3=Patient will improve strength/tolerance for activity to enable patient to perform ADL's. OT Jail Goals Jail Goals Time Frame: September 07, 2016 Eating (FIM): 6 Eating (QC): 6 Groomin Oral Hygiene (QC): 6 Bathing(FIM): 5 Upper Body Dressing(FIM): 6 Lower Body Dressing(FIM): 6 Toileting(FIM): 6 Toileting Hygiene (QC): 6 Toilet/Commode Transfer(FIM): 6 Toilet/Commode Transfer (QC): 6 1=Demonstrate adherence to instructed precautions during ADL tasks. 2=Patient will verbalize/demonstrate understanding of assistive devices/ modifications for ADL. 3=Patient will improve strength/tolerance for activity to enable patient to perform ADL's. OT Education/Plan Problem List/Assessment Assessment: Decreased Activ Tolerance, Decreased UE Strength, Dependent Transfers, Impaired Self-Care Skills Pt to benefit from skilled OT intervention for ADL training, transfers, strengthening, and home safety education to increase level of independence and allow safe return home. Discharge Recommendations Plan/Recommendations: Continue POC Treatment Plan/Plan of Care Treatment,Training & Education: Yes Patient would benefit from OT for education, treatment and training to promote independence in ADL's, mobility, safety and/or upper extremity function for ADL' s. Plan of Care: ADL Retraining, Functional Mobility, UE Funct Exercise/Act Treatment Duration: September 07, 2016 # of days/week 5 Visits Per Week: 5 Agreement: Yes Rehab Potential: Good Time/GCodes Start Time: 14:55 Stop Time: 15:19 Total Time Billed (hr/min): 24 Billed Treatment Time 1 visit, EVL(9minutes), ADL(15minutes) DOLORES PETERSON OT Aug 28, 2016 15:34
[2016-08-28] MEDS: CATHETER FLUSH 10 ML SYR IV SCH ×2 (15:49→20:33)
[2016-08-28] MEDS ORDERED: ANTACID SUSP 30 ML UDC (MYLANTA) PO PRN (16:45)
[2016-08-28] MEDS: ACETAMINOPHEN 500 MG TAB (TYLENOL) PO PRN (18:02)
[2016-08-28 18:15] VITALS: BP 118/56
[2016-08-28] MEDS: LATANOPROST 0.005% (XALATAN) OPHTH SOLN 2.5 ML OU SCH (20:33)
[2016-08-28] MEDS: POLYETHYLENE GLYCOL 17 GM (MIRALAX) PACK PO PRN (20:33)
[2016-08-28] MEDS: SUCRALFATE 1 GM (CARAFATE) TAB PO SCH (20:33)
[2016-08-29] MEDS: CATHETER FLUSH 10 ML SYR IV SCH ×3 (06:07→22:00)
[2016-08-29] MEDS: KCL 10 MEQ TAB (MICRO K) PO SCH (06:07)
[2016-08-29] MEDS: PANTOPRAZOLE 20 MG TABLET (PROTONIX) PO SCH (06:07)
[2016-08-29] MEDS: ALPRAZolam 0.25 MG (XANAX) TAB PO PRN (06:09)
[2016-08-29] MEDS: SUCRALFATE 1 GM (CARAFATE) TAB PO SCH ×4 (06:09→21:06)
[2016-08-29 06:33] VITALS: BP 159/69
[2016-08-29] MEDS: AMIODARONE 200 MG (CORDARONE) TAB PO SCH (08:27)
[2016-08-29] MEDS: MONTELUKAST 10 MG (SINGULAIR) TAB PO SCH (08:28)
[2016-08-29] MEDS: LORATADINE (CLARITIN) 10 MG TAB PO SCH (08:28)
[2016-08-29] MEDS: IRBESARTAN 150 MG (AVAPRO) TAB PO SCH (08:28)
[2016-08-29] MEDS: DOCUSATE SODIUM 100 MG (COLACE) CAP PO SCH (08:28)
[2016-08-29] MEDS: amLODIPine 5 MG (NORVASC) TAB PO SCH (08:30)
--- NOTE | 2016-08-29 11:20 | Physical Therapy Daily Note ---
PT Daily Note-Current Subjective Pt was in bed, but agreeable to treatment. Mental Status Patient Orientation: Person, Place Transfers Functional [place] Measure 0=Not Assessed/NA 4=Minimal Assistance 1=Total Assistance 5=Supervision or Setup 2=Maximal Assistance 6=Modified [place] 3=Moderate Assistance 7=Complete IndependenceIRFPAI Quality Coding Scale 6 Independent with activity with or without an assistive device 5 Patient requires set up or clean up by helper. Patient completes activity by themselves 4 Supervision or touching assist (CGA). [place] provide cues , steadying assist 3 The helper provides less than half the effort to complete the activity 2 The helper provides more than half the effort to complete the activity 1 Dependent. The helper does all the effort to complete an activity 7 Patient refused to complete or attempt activity 9 The patient did not perform the activity before the current illness or injury 88 Not attempted due to Medical conditions or safety concerns Transfers (B, C, W/C) (FIM): 3 Scootin Roll Left to Right (QC): 3 Supine to/from Sit: 3 Sit to/from Stand: 4 Sit to Stand (QC): 4 Bed to/from Chair: 4 Gait Training Does the Patient Walk?: Yes Gait (FIM): 3 Distance: 125ft Gait Level of Assist: 3 Gait Persons Needed: 1 Gait Assistive Device: FWW Exercises Supine Ex: LE Protocol Supine Reps: 20 Assessment Pt was very lethargic on arrival today. Ambulation limited by fatigue. PT Cnc Lathe Machinist Goals [facility] Goals PT Cnc Lathe Machinist Goals Time Frame: Sep 04, 2016 Transfers (B,C,W/C) (FIM): 6 Sit to Lying (QC): 6 Lying-Sitting on Side/Bed(QC): 6 Sit to Stand (QC): 6 Rollin Chair/Sse-df-Bnsmv Xfer(QC): 6 Does the Patient Walk: Yes Gait (FIM): 6 Gait distance (FIM): 3=150 ft Walk 50ft with 2 Turns (QC): 6 Walk 150 ft (QC): 6 Gait Level of Assist: 6 Gait Assistive Device: FWW PT Plan Treatment/Plan Treatment Plan: Continue Plan of Care Treatment Plan: Education, Functional Activity [place], Functional Strength, Gait , Safety, Therapeutic Exercise, Transfers Treatment Duration: Sep 04, 2016 Visits Per Week: 6 Minutes/Day (M-F): 15-30 Minutes/Day (Sat/[place]): PRN Time/GCodes Time In: 0820 Time Out: 0840 Total Billed Treatment Time: 20 Total Billed Treatment 1, gt 20 JESENIA FIORE PT Aug 29, 2016 11:20
[2016-08-29 11:59] LABS: BASOPHILS % (AUTO) 1 % (0-10); EOSINOPHILS # (AUTO) 0.2 10^3/uL (0.0-0.3); EOSINOPHILS % (AUTO) 3 % (0-10); LYMPHOCYTES % (AUTO) 19 % (12-44); MEAN CORPUSCULAR HEMOGLOBIN 25 PG (25-34); MEAN CORPUSCULAR HGB CONC 32 G/DL (32-36); MEAN CORPUSCULAR VOLUME 80 FL (80-99); MONOCYTES # (AUTO) 0.4 X 10^3 (0.0-1.0); MONOCYTES % (AUTO) 8 % (0-12); NEUTROPHILS # (AUTO) 3.7 X 10^3 (1.8-7.8); NEUTROPHILS % (AUTO) 70 % (42-75); PLATELET COUNT 217 10^3/uL (130-400); RED BLOOD COUNT 3.85 10^6/uL (4.35-5.85); RED CELL DISTRIBUTION WIDTH 15.9 % (10.0-14.5); WHITE BLOOD COUNT 5.3 10^3/uL (4.3-11.0)
--- NOTE | 2016-08-29 12:15 | Progress Note-Hospitalist ---
Progress Note Progress Notes/Assess & Plan Date Seen 08/29/16 Diagonsis/Assessment & Plan Patient doing well but has not had a bowel movement yet Denies any pain Follow-up hemoglobin reveals 9.7 after received 2 units of blood yesterday Denies any other significant issues No fever, vital signs stable, pleasant, up in chair iregular rate and rhythm, clear to auscultation bilaterally No edema Laboratory Tests 08/29/16 11:50 Assessment: Rectal bleeding- Severe requiring transfusion s/p 2 units yesterday now hgb 9.7 AF Cognitive decline requiring child watch attendant at [facility] DAMASO on CPAP Plan: Monitor closely General surgery to follow bowel movements Monitor hemoglobin ALMA KITCHEN DO Aug 29, 2016 12:15
[2016-08-29 12:19] LABS: ALBUMIN 3.4 G/DL (3.2-4.5); BILIRUBIN,TOTAL 1.1 MG/DL (0.1-1.0); CALCIUM 8.7 MG/DL (8.5-10.1); CREATININE SERUM 0.91 MG/DL (0.60-1.30); POTASSIUM 3.6 MMOL/L (3.6-5.0); TOTAL PROTEIN 6.1 G/DL (6.4-8.2)
[2016-08-29] MEDS: HYDROcodone/APAP 5 MG/325 MG (LORTAB) TAB PO PRN ×2 (12:27→23:26)
[2016-08-29 18:00] VITALS: BP 138/64
[2016-08-29 19:02] VITALS: BP 138/64
--- NOTE | 2016-08-29 19:41 | Progress Note (SOAP) ---
Subjective Subjective/Events-last exam doing well. no signs of clinical bleed. no BM yet. Hb stable now after 2u PRBC at 9.7. Objective Exam Vital Signs Date Time Temp Pulse Resp B/P (MAP) Pulse Ox O2 Delivery O2 Flow Rate FiO2 08/29/16 19:02 96.7 55 16 138/64 96 Room Air 08/29/16 18:00 96.7 55 16 138/64 96 Room Air 08/29/16 13:00 97.4 08/29/16 12:27 97.4 08/29/16 06:33 97.4 54 16 159/69 94 Room Air I & O 08/29/16 06:59 Intake Total 1490 ml Output Total 450 ml Balance 1040 ml Capillary Refill : General Appearance: No Apparent Distress HEENT: PERRL/EOMI Neck: Full Range of Motion Respiratory: Chest Non Tender, Lungs Clear Cardiovascular: Regular Rate, Rhythm Gastrointestinal: normal bowel sounds, non tender, soft Extremity: Normal Capillary Refill Neurologic/Psychiatric: Alert Skin: Normal Color Results Lab Laboratory Tests 08/29/16 11:50: White Blood Count 5.3, Red Blood Count 3.85L, Hemoglobin 9.7#L, Hematocrit 31L, Mean Corpuscular Volume 80, Mean Corpuscular Hemoglobin 25, Mean Corpuscular Hemoglobin Concent 32, Red Cell Distribution Width 15.9H, Platelet Count 217, Mean Platelet Volume 10.0, Neutrophils (%) (Auto) 70, Lymphocytes (%) (Auto) 19 , Monocytes (%) (Auto) 8, Eosinophils (%) (Auto) 3, Basophils (%) (Auto) 1, Neutrophils # (Auto) 3.7, Lymphocytes # (Auto) 1.0, Monocytes # (Auto) 0.4, Eosinophils # (Auto) 0.2, Basophils # (Auto) 0.0, Sodium Level 142, Potassium Level 3.6, Chloride Level 112H, Carbon Dioxide Level 20L, Anion Gap 10, Blood Urea Nitrogen 12, Creatinine 0.91, Estimat Glomerular Filtration Rate 60, BUN/ Creatinine Ratio 13, Glucose Level 108H, Calcium Level 8.7, Total Bilirubin 1.1H , Aspartate Amino Transf (AST/SGOT) 17, Alanine Aminotransferase (ALT/SGPT) 11, Alkaline Phosphatase 97, Total Protein 6.1L, Albumin 3.4 Assessment/Plan Assessment/Plan Assess & Plan/Chief Complaint persistent hemorrhoidal bleed s/p anorectal exam under anesthesia and multiple internal hemorrhoidal banding. Hb stable. if no BM to tomorrow the start miralax BID. ALAINA IRVING MD Aug 29, 2016 7:41 pm
[2016-08-29] MEDS: POLYETHYLENE GLYCOL 17 GM (MIRALAX) PACK PO PRN (21:06)
[2016-08-29] MEDS: LATANOPROST 0.005% (XALATAN) OPHTH SOLN 2.5 ML OU SCH (21:06)
[2016-08-30] MEDS: ALPRAZolam 0.25 MG (XANAX) TAB PO PRN ×2 (00:34→22:43)
[2016-08-30] MEDS: PANTOPRAZOLE 20 MG TABLET (PROTONIX) PO SCH (06:09)
[2016-08-30] MEDS: SUCRALFATE 1 GM (CARAFATE) TAB PO SCH ×4 (06:09→20:08)
[2016-08-30] MEDS: CATHETER FLUSH 10 ML SYR IV SCH ×3 (06:10→22:18)
[2016-08-30] MEDS: KCL 10 MEQ TAB (MICRO K) PO SCH (06:10)
[2016-08-30 06:15] VITALS: BP 124/78
[2016-08-30] MEDS: amLODIPine 5 MG (NORVASC) TAB PO SCH (08:22)
[2016-08-30] MEDS: AMIODARONE 200 MG (CORDARONE) TAB PO SCH (08:23)
[2016-08-30] MEDS: MONTELUKAST 10 MG (SINGULAIR) TAB PO SCH (08:23)
[2016-08-30] MEDS: LORATADINE (CLARITIN) 10 MG TAB PO SCH (08:24)
[2016-08-30] MEDS: DOCUSATE SODIUM 100 MG (COLACE) CAP PO SCH (08:24)
[2016-08-30] MEDS: IRBESARTAN 150 MG (AVAPRO) TAB PO SCH (08:29)
[2016-08-30] MEDS: HYDROcodone/APAP 5 MG/325 MG (LORTAB) TAB PO PRN (13:51)
[2016-08-30 18:00] VITALS: BP 130/59
[2016-08-30] MEDS: LATANOPROST 0.005% (XALATAN) OPHTH SOLN 2.5 ML OU SCH (20:08)
[2016-08-31] MEDS: SUCRALFATE 1 GM (CARAFATE) TAB PO SCH ×2 (05:53→11:13)
[2016-08-31] MEDS: KCL 10 MEQ TAB (MICRO K) PO SCH (05:53)
[2016-08-31] MEDS: PANTOPRAZOLE 20 MG TABLET (PROTONIX) PO SCH (05:53)
[2016-08-31] MEDS: CATHETER FLUSH 10 ML SYR IV SCH (05:54)
[2016-08-31 07:59] VITALS: BP 140/62
[2016-08-31] MEDS: MONTELUKAST 10 MG (SINGULAIR) TAB PO SCH (08:17)
[2016-08-31] MEDS: DOCUSATE SODIUM 100 MG (COLACE) CAP PO SCH (08:17)
[2016-08-31] MEDS: LORATADINE (CLARITIN) 10 MG TAB PO SCH ×2 (08:17→08:22)
[2016-08-31] MEDS: IRBESARTAN 150 MG (AVAPRO) TAB PO SCH (08:17)
[2016-08-31] MEDS: ACETAMINOPHEN 500 MG TAB (TYLENOL) PO PRN (08:17)
[2016-08-31] MEDS: AMIODARONE 200 MG (CORDARONE) TAB PO SCH (08:18)
[2016-08-31] MEDS: amLODIPine 5 MG (NORVASC) TAB PO SCH (08:18)
[2016-08-31] MEDS ORDERED: HYDR-3812 PO (09:21)
--- NOTE | 2016-08-31 09:25 | Discharge Inst-Home Health ---
Discharge Inst-to Home Health Patient Instructions Patient Instructions/FollowUp: Hold blood thinners until seeing Dr Soni Patient Problems: Rectal bleeding due to hemorrhoids and s/p uncomplicated banding by Dr Martin Generalized weakness VIA [place], [place] DISCHARGE ORDERS Allergies: Coded Allergies: Penicillins (Verified Allergy, Unknown, 07/26/07) Shellfish (Verified Allergy, Unknown, 07/26/07) Sulfa (Sulfonamide Antibiotics) (Verified Allergy, Unknown, 07/26/07) azithromycin (Unverified Allergy, Unknown, ITCHING, 08/05/13) cephalexin (Verified Allergy, Unknown, 07/26/07) erythromycin base (Verified Allergy, Unknown, 07/26/07) furosemide (Verified Allergy, Unknown, 07/26/07) nitrofurantoin (Unverified Allergy, Unknown, ITCHING/"THICK TONGUE", ) tetracycline (Verified Allergy, Unknown, 07/26/07) Uncoded Allergies: TAPE (Allergy, Unknown, 07/26/07) Height (Feet): 5 Height (Inches): 6.00 Weight (Pounds): 170 Weight (Ounces): 9.0 Home Health Need/Face to Face Reason Pt Homebound weakness, severe anemia I Have Seen Pt Kykn-[id number]: Yes Date of Face to Face: Aug 31, 2016 Discharged To: Home Diagnosis/Conditions HH Order: med administration Therapy Consult/Follow Up/New Order *I certify that based on my findings, the following services are medically necessary Home Health Services: Services: Nursing Services, Bench Repair Technician-Evaluate & Treat, Physical Therapy-Evaluate & Treat My clinical findings support the need for the above services; see Diagnosis. Dicharge Diet: Cardiac Diet Daily Activity as Tolerated: Yes Discharge Medications: New, Converted, or Re-newed RX: RX on Chart I certify that this patient is under my care and that I, a nurse practitioner or a physician; a assistant grocery working with me, had a face to face encounter that - meets the physician face to face encounter requirements with this patient as dated. ALMA KITCHEN DO Aug 31, 2016 09:25
--- NOTE | 2016-08-31 09:28 | Discharge Summary-Hospitalist ---
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 [facility] DAMASO on CPAP Patient doing well but has not had a bowel movement yet Denies any pain Follow-up hemoglobin reveals 9.7 after received 2 units of blood yesterday Denies any other significant issues No fever, vital signs stable, pleasant, up in chair iregular rate and rhythm, clear to auscultation bilaterally No edema Laboratory Tests 08/29/16 11:50 Assessment: Rectal bleeding- Severe requiring transfusion s/p 2 units yesterday now hgb 9.7 AF Cognitive decline 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 She had no further rectal bleeding and Dr. Martin was okay with discharge to home health with coin teller because she declines [facility] and I did leave a message for Dr. Soni to resume anticoagulation when he was comfortable but she was having bowel movements without any type of active bleeding. I did send her home with pain medication in case the banding became uncomfortable but she will have a close follow-up with Dr. Soni and Dr. Martin. Discharge Summary Discharge Physical Examination Allergies: Coded Allergies: Penicillins (Verified Allergy, Unknown, 07/26/07) Shellfish (Verified Allergy, Unknown, 07/26/07) Sulfa (Sulfonamide Antibiotics) (Verified Allergy, Unknown, 07/26/07) azithromycin (Unverified Allergy, Unknown, ITCHING, 08/05/13) cephalexin (Verified Allergy, Unknown, 07/26/07) erythromycin base (Verified Allergy, Unknown, 07/26/07) furosemide (Verified Allergy, Unknown, 07/26/07) nitrofurantoin (Unverified Allergy, Unknown, ITCHING/"THICK TONGUE", ) tetracycline (Verified Allergy, Unknown, 07/26/07) Uncoded Allergies: TAPE (Allergy, Unknown, 07/26/07) Vitals & I&Os Vital Signs Date Time Temp Pulse Resp B/P (MAP) Pulse Ox O2 Delivery O2 Flow Rate FiO2 08/31/16 08:16 65 08/31/16 07:59 98.6 16 140/62 96 Room Air Discharge Home Medications: Active Scripts Active Hydrocodon -Acetaminophen 5-325 (Hydrocodone/Acetaminophen) 1 Each Tablet 1 Tab PO Q4H PRN Reported Omeprazole 20 Mg Capsule.dr 20 Mg PO DAILY Sucralfate 1 Gm Tablet 1 Gm PO ACHS Amlodipine Besylate 5 Mg Tablet 5 Mg PO DAILY Colace (Docusate Sodium) 100 Mg Capsule 100 Mg PO DAILY Anusol-Hc (Hydrocortisone Acetate) 25 Mg Supp.rect 25 Mg RC BID 5 Days 5 DAY SUPPLY FILLED 08-23-16 Amiodarone HCl 100 Mg Tablet 100 Mg PO DAILY Montelukast Sodium 10 Mg Tablet 10 Mg PO DAILY Mylanta Suspension (Al Hydrox/Mg Hydrox/Simethicone) 30 Ml Oral.susp 1 Tbs PO BID PRN Pepcid Complete Tablet Chew (Famotidine/Ca Carb/Mag Hydrox) 1 Each Tab.chew 1 Tab.chew PO DAILY PRN Cyanocobalamin Injection (Cyanocobalamin) 1,000 Mcg/Ml Inj 1,000 Mcg INJ MONTHLY OF EACH MONTH Latanoprost 2.5 Ml Drops 1 Drop OU HS Alprazolam 0.25 Mg Tablet 0.25 Mg PO Q8H PRN Levothyroxine Sodium 50 Mcg Tablet 50 Mcg PO DAILY Klor-Con M10 (Potassium Chloride) 10 Meq Tab.er.prt 10 Meq PO DAILY Irbesartan 300 Mg Tablet 300 Mg PO DAILY Acetaminophen Extra Strength (Acetaminophen) 500 Mg Tablet 500 Mg PO BID PRN Fexofenadine Hcl (Fexofenadine HCl) 180 Mg Tablet 180 Mg PO DAILY Instructions to patient/family Please see electonic discharge instructions given to patient. ALMA KITCHEN DO Aug 31, 2016 09:28
--- NOTE | 2016-08-31 11:19 | Therapy Team Discharge Summary ---
Therapy Discharge Summary Discharge Recommendations Date of Discharge Physical Therapy Patient seen x 2 PT sessions. Patient to dismiss to home on this date with goals addressed but not met. Patient report she feels that she is at PLOF with all gross motor skills and will return with caregivers present. Patient is SBA to Modified independent with all gross motor skills at this time. PT Plate Glass Grinder Goals [facility] Goals PT Plate Glass Grinder Goals Time Frame: Sep 04, 2016 Transfers (B,C,W/C) (FIM): 6 Sit to Lying (QC): 6 Lying-Sitting on Side/Bed(QC): 6 Sit to Stand (QC): 6 Rollin Chair/Puc-hi-Tgbxk Xfer(QC): 6 Does the Patient Walk: Yes Gait (FIM): 6 Gait distance (FIM): 3=150 ft Walk 50ft with 2 Turns (QC): 6 Walk 150 ft (QC): 6 Gait Level of Assist: 6 Gait Assistive Device: FWW OT [facility] Goals Plate Glass Grinder Goals Time Frame: September 07, 2016 Eating (FIM): 6 Eating (QC): 6 Groomin Oral Hygiene (QC): 6 Bathing(FIM): 5 Upper Body Dressing(FIM): 6 Lower Body Dressing(FIM): 6 Toileting(FIM): 6 Toileting Hygiene (QC): 6 Toilet/Commode Transfer(FIM): 6 Toilet/Commode Transfer (QC): 6 1=Demonstrate adherence to instructed precautions during ADL tasks. 2=Patient will verbalize/demonstrate understanding of assistive devices/ modifications for ADL. 3=Patient will improve strength/tolerance for activity to enable patient to perform ADL's. MATILDE PEGUERO PT Aug 31, 2016 11:19
[2016-08-31] MEDS: HYDROcodone/APAP 5 MG/325 MG (LORTAB) TAB PO PRN (12:31)
--- NOTE | 2016-08-31 13:58 | Therapy Team Discharge Summary ---
Therapy Discharge Summary Discharge Recommendations Date of Discharge Aug 31, 2016 at 13:35 Occupational Therapy Pt admitted to [facility] status following acute hospitalization for anemia. Evaluation was completed with pt completing basic ADLs and transfers with SBA. Pt was discharged this date before further treatment was given. Therefore, pt did not meet any OT LTG. Pt discharge home this date. D/C SWB OT at this time. PT [facility] Goals Tour Counselor Goals PT Tour Counselor Goals Time Frame: Sep 04, 2016 Transfers (B,C,W/C) (FIM): 6 Sit to Lying (QC): 6 Lying-Sitting on Side/Bed(QC): 6 Sit to Stand (QC): 6 Rollin Chair/Hmt-rb-Uwmie Xfer(QC): 6 Does the Patient Walk: Yes Gait (FIM): 6 Gait distance (FIM): 3=150 ft Walk 50ft with 2 Turns (QC): 6 Walk 150 ft (QC): 6 Gait Level of Assist: 6 Gait Assistive Device: FWW OT Tour Counselor Goals [facility] Goals Time Frame: September 07, 2016 Eating (FIM): 6 Eating (QC): 6 Groomin Oral Hygiene (QC): 6 Bathing(FIM): 5 Upper Body Dressing(FIM): 6 Lower Body Dressing(FIM): 6 Toileting(FIM): 6 Toileting Hygiene (QC): 6 Toilet/Commode Transfer(FIM): 6 Toilet/Commode Transfer (QC): 6 1=Demonstrate adherence to instructed precautions during ADL tasks. 2=Patient will verbalize/demonstrate understanding of assistive devices/ modifications for ADL. 3=Patient will improve strength/tolerance for activity to enable patient to perform ADL's. DOLORES PETERSON OT Aug 31, 2016 13:58
--- NOTE | 2016-09-09 10:51 | DISCHARGE SUMMARY ---
DATE OF SERVICE: 08/31/2016 ADMISSION DIAGNOSIS: Internal hemorrhoidal bleeding. DISCHARGE DIAGNOSIS: Internal hemorrhoidal bleeding. ADDITIONAL DIAGNOSES: 1. Atrial fibrillation. 2. Coronary artery disease. 3. Hypertension. 4. Lower extremity edema. 5. Cardiomyopathy. 6. History of premature ventricular contraction. 7. Chronic urinary tract infection. 8. Gastroesophageal reflux disease. 9. Osteoporosis. 10. Arthritis. 11. Hypothyroid. 12. Diabetes. 13. Glaucoma. 14. Anxiety. 15. Depression. PRINCIPAL PROCEDURE: Anal rectal exam under anesthesia and multiple rubber band ligation of bleeding internal hemorrhoids. No additional procedures. COMPLICATIONS: None. The patient is a 81-year-old female who was initially admitted on 08/09/2016 for rectal bleeding. She had had intermittent episodes of darker stools followed by red blood per rectum. She was taking Xarelto at the time for her atrial fibrillation and coronary artery disease. During that admission, she underwent an EGD and colonoscopy. The EGD showed reflux esophagitis class B with no recurrent hiatal hernia and an intact previous wrap as well as a moderate severity gastritis, however, no active bleeding. Colonoscopy showed chronic between stage II and III external and internal hemorrhoids with old clotted blood within the rectal vault. There was no active bleeding identified. The patient is also status post sigmoid colon resection and the area of anastomosis was widely patent and there was no blood beyond this area of anastomosis. The patient's Xarelto was held and her hemoglobin was stable. She then developed intermittent episodes of rectal bleeding again. She was seen in the office with a small amount of dried blood identified in the anal region, however, again no active bleeding. She did not report any systemic symptoms of weakness, fatigue, or any vasovagal episodes. She states that she continued to have rectal bleeding and then also developed lightheadedness and presented to the emergency department where her hemoglobin was 8.8. PAST MEDICAL HISTORY: Atrial fibrillation, coronary artery disease, hypertension, bilateral lower extremity edema, cardiomyopathy, history of PVC, chronic urinary tract infection, GERD, osteoporosis, arthritis, hypothyroid, diabetes, glaucoma, anxiety, depression. PAST SURGERIES: Thyroidectomy, ORIF right lower leg, appendectomy, cholecystectomy, hysterectomy, tonsillectomy, hiatal hernia repair, and antireflux procedure. ALLERGIES: PENICILLIN, SULFA, AZITHROMYCIN, CEPHALEXIN, ERYTHROMYCIN, FUROSEMIDE, NITROFURANTOIN, TETRACYCLINE. MEDICATIONS: 1. Alprazolam 0.25 mg q.8 hours p.r.n. 2. Amiodarone 100 mg daily. 3. Vitamin B12 injection monthly. 4. Famotidine 20 mg p.r.n. 5. Fexofenadine 180 mg daily. 6. Irbesartan 300 mg daily. 7. Latanoprost eyedrops daily. 8. Levothyroxine 50 mcg daily. 9. Reglan p.r.n. 10. Montelukast 10 mg daily. 11. Potassium 10 mEq daily. 12. Previous Xarelto, however, this had been held for approximately 10 days. SOCIAL HISTORY: Negative smoke, negative alcohol. FAMILY HISTORY: Father hypertension and stroke. Brother hypertension. The patient was resuscitated with blood, however, continued to have issues with rectal bleeding. The patient was taken to the operating room on 08/27/2016 where she underwent anorectal exam under anesthesia. She was found to have a significant amount of redundant rectal mucosa most likely consistent with a rectal prolapse as well as stage III internal hemorrhoids with multiple areas of bleeding that were banded. The external hemorrhoids were less severe and approximately stage II. There were no solitary rectal ulcers identified as well as no neoplasms. The patient tolerated the procedure well and was sent back to the general surgical floor. On the floor, she had done well with serial hemoglobins being stable and no signs of any rectal bleeding. She did have bowel function which was dark as well as brown in consistency. Due to her multiple medical problems and other disabilities, she was then transferred to swing bed status. She was transferred on 08/31/2016. TRANSFER INSTRUCTIONS: High fiber diet. Previous medications, hold Xarelto. May shower. She is to follow up p.r.n. Job ID: [id number] DocumentID: [id number] Dictated Date: 09/08/2016 17:28:44 Pickling Tank Operator Date: 09/09/2016 10:51:11 Dictated By: ALAIAN IRVING MD
== END 2016-08-31 13:35 | disposition home health service (06) | DRG 394 ==
LOC: 4TH 12:32
PROVIDERS: ADMIT Internal Medicine; ATTEND Internal Medicine
DX: K64.2 Third degree hemorrhoids (principal); I48.91 Unspecified atrial fibrillation; G47.33 Obstructive sleep apnea (adult) (pediatric); K62.3 Rectal prolapse; I25.10 Atherosclerotic heart disease of native coronary artery without angina pectoris; Z79.01 Long term (current) use of anticoagulants; I42.9 Cardiomyopathy, unspecified; K21.9 Gastro-esophageal reflux disease without esophagitis; M81.0 Age-related osteoporosis without current pathological fracture; E03.9 Hypothyroidism, unspecified; E11.9 Type 2 diabetes mellitus without complications; F32.9 Major depressive disorder, single episode, unspecified; F41.9 Anxiety disorder, unspecified; H91.90 Unspecified hearing loss, unspecified ear
CPT/HCPCS: 36415; 80053; 85025; 94664

== ENCOUNTER 2016-09-21 18:40 | Emergency (ER) | payer MEDICARE, MEDICAID ==
[~2016-09-21] VITALS: Ht 167.6 cm; Wt 76.2 kg
[~2016-09-21 18:40] MED LIST changes: +HYDR-3812 PO
--- NOTE | 2016-09-21 19:18 | Diagnostic Imaging Report ---
INDICATION: Choking incident. COMPARISON: 08/11/2016 FINDINGS: Frontal and lateral views of the chest demonstrate stable heart size and pulmonary vascularity. The lungs are clear. There are no signs of infiltrate, pleural effusions or pneumothoraces. The visualized osseous structures show no acute abnormalities. IMPRESSION: 1. No acute process. No signs of infiltrates, effusions or pneumothoraces. Dictated by: Dictated on workstation # [id number]
--- NOTE | 2016-09-21 19:21 | ED General ---
General Chief Complaint: Foreign Body Stated Complaint: CHOKING Nursing Triage Note: PT ARRIVED BY EMS. PT STATES SHE SWOLLOWED A PEPPERMENT CANDY APPROX 20 MIN AGO AND STATES SHE FEELS IT IS STUCK IN HER TRACHEA. Nursing Sepsis Screen: No Definite Risk Source of Information: Patient, EMS Exam Limitations: No Limitations History of Present Illness Time Seen by Provider: 18:41 Initial Comments This 81-year-old woman presents to the emergency room via EMS after ingesting a peppermint. She is concerned it went down her trachea and not her esophagus. She states she can feel it below the level of the larynx and she can persistently tasted. She denies any shortness of breath or coughing. She does have a history of hiatal hernia, GERD, and gastritis. She reports being able to drink at home. Patient had recent hemorrhoid surgery Location Injury Occurred: HOME Allergies and Home Medications Allergies Coded Allergies: Penicillins (Verified Allergy, Unknown, 07/26/07) Shellfish (Verified Allergy, Unknown, 07/26/07) Sulfa (Sulfonamide Antibiotics) (Verified Allergy, Unknown, 07/26/07) azithromycin (Unverified Allergy, Unknown, ITCHING, 08/05/13) cephalexin (Verified Allergy, Unknown, 07/26/07) erythromycin base (Verified Allergy, Unknown, 07/26/07) furosemide (Verified Allergy, Unknown, 07/26/07) nitrofurantoin (Unverified Allergy, Unknown, ITCHING/"THICK TONGUE", ) tetracycline (Verified Allergy, Unknown, 07/26/07) Uncoded Allergies: TAPE (Allergy, Unknown, 07/26/07) Home Medications Acetaminophen 500 Mg Tablet, 500 MG PO BID PRN for PAIN, (Reported) Alprazolam 0.25 Mg Tablet, 0.25 MG PO Q8H PRN for ANXIETY, (Reported) Amiodarone HCl 100 Mg Tablet, 100 MG PO DAILY, (Reported) Amlodipine Besylate 5 Mg Tablet, 5 MG PO DAILY, (Reported) Cyanocobalamin 1,000 Mcg/Ml Inj, 1,000 MCG INJ MONTHLY, (Reported) OF EACH MONTH Docusate Sodium 100 Mg Capsule, 100 MG PO DAILY, (Reported) Famotidine/Ca Carb/Mag Hydrox 1 Each Tab.chew, 1 TAB.CHEW PO DAILY PRN for HEARTBURN, (Reported) Fexofenadine Hcl 180 Mg Tablet, 180 MG PO DAILY, (Reported) Hydrocodone/Acetaminophen 1 Each Tablet, 1 TAB PO Q4H PRN for PAIN-MODERATE, #10 Prescribed by: ALMA KITCHEN on 08/31/16 0921 Hydrocortisone Acetate 25 Mg Supp.rect, 25 MG RC BID for 5 Days, (Reported) 5 DAY SUPPLY FILLED 08-23-16 Irbesartan 300 Mg Tablet, 300 MG PO DAILY, (Reported) Latanoprost 2.5 Ml Drops, 1 DROP OU HS, (Reported) Levothyroxine Sodium 50 Mcg Tablet, 50 MCG PO DAILY, (Reported) Mag Hydrox/Al Hydrox/Simeth 30 Ml Oral.susp, 1 TBS PO BID PRN for INDIGESTION, ( Reported) Montelukast Sodium 10 Mg Tablet, 10 MG PO DAILY, (Reported) Omeprazole 20 Mg Capsule.dr, 20 MG PO DAILY, (Reported) Potassium Chloride 10 Meq Tab.er.prt, 10 MEQ PO DAILY, (Reported) Sucralfate 1 Gm Tablet, 1 GM PO ACHS, (Reported) Constitutional: no symptoms reported EENTM: no symptoms reported Respiratory: no symptoms reported Cardiovascular: no symptoms reported Gastrointestinal: see HPI Genitourinary: no symptoms reported : No Musculoskeletal: no symptoms reported Skin: no symptoms reported Psychiatric/Neurological: No Symptoms Reported Hematologic/Lymphatic: No Symptoms Reported Past Btwihdr-Gorfjn-Mowmhv Hx Patient Social History Alcohol Use: Denies Use Recreational Drug Use: No Smoking Status: Never a Smoker 2nd Hand Smoke Exposure: No Recent Foreign Travel: No Contact w/Someone Who Travel: No Recent Infectious Disease Expo: No Recent Hopitalizations: No Immunizations Up To Date Tetanus Booster (TDap): Less than 5yrs PED Vaccines UTD: No Date of Pneumonia Vaccine: October 03, 2010 Date of Influenza Vaccine: Feb 08, 2012 Seasonal Allergies Seasonal Allergies: Yes Surgeries HX Surgeries: Yes Surgeries: Abdominal (Multiple endoscopy procedures including 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 hemorrhoid surgery, hiatal hernia repair) , Appendectomy, 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), Gallbladder, Hysterectomy , Rectal, Thyroidectomy, Tonsillectomy Respiratory Hx Respiratory Disorders: Yes Respiratory Disorders: Asthma, Sleep Apnea Cardiovascular Hx Cardiac Disorders: Yes (PVC'S, ENLARGED HEART) Cardiac Disorders: Atrial Fibrillation, Cardiomyopathy, Chronic Edema/Swelling , Coronary Artery Disease, Hypertension Neurological Hx Neurological Disorders: No 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 System Hx 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 Disorders: No 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 Genitourinary Hx Genitourinary Disorders: Yes (DOUBLE COLLECTING SYSTEM) Genitourinary Disorders: UTI-Chronic Gastrointestinal Hx Gastrointestinal Disorders: Yes (gastritis) Gastrointestinal Disorders: Gastroesophageal Reflux, Gastrointestinal Bleed, Diverticulosis, Hemorrhoids, Esophagitis, Hiatal Hernia, Ulcer, Irritable Bowel Musculoskeletal Hx Musculoskeletal Disorders: Yes (OSTEOARTHRITIS, FX RIGHT LOWER LEG, DISLOCATED RIGHT SHOULDER) Musculoskeletal Disorders: Osteoporosis, Arthritis, Fractures Endocrine Hx Endocrine Disorders: Yes (THYROIDECTOMY; "PREDIABETIC" PER PT ON 02/13/16 -- NO MEDICATIONS) Endocrine Disorders: Hypothyroidsim, Diabetes, Non-Insulin dep HEENT HX ENT Disorders: Yes HEENT Disorders: Glaucoma Hearing Impairment: Hard of Hearing Cancer Hx Cancer: No Psychosocial Hx Psychiatric Problems: Yes Behavioral Health Disorders: Anxiety, Depression Integumentary HX Skin/Integumentary Disorder: No Blood Transfusions Hx Blood Disorders: Yes (ANEMIA) Adverse Reaction to a Blood Tr: No Family Medical History Significant Family History: No Pertinent Family Hx Family Medial History: Family history: Hypertension 03 FATHER, Onset:40's - 50 09 BROTHER, Onset:40's - 50 History of drug abuse 03 FATHER, Onset:20's - 25 Stroke 03 FATHER, Onset:60 years & older Physical Exam Vital Signs Vital Sign - Last 12Hours 09/21/16 18:40 Temp 99.0 Pulse 69 Resp 20 B/P (MAP) 192/91 Pulse Ox 96 O2 Delivery Room Air Capillary Refill : Less Than 3 Seconds General Appearance: No Apparent Distress, WD/WN HEENT: PERRL/EOMI, Normal ENT Inspection, Pharynx Normal Neck: Other (slight fullness around thyroidectomy site) Respiratory: Lungs Clear, Normal Breath Sounds, No Accessory Muscle Use, No Respiratory Distress Cardiovascular: Regular Rate, Rhythm, No Edema, No Murmur Gastrointestinal: Normal Bowel Sounds, Non Tender, Soft Extremity: Normal Inspection, No Pedal Edema Neurologic/Psychiatric: Alert, Oriented x3, No Motor/Sensory Deficits, Normal 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 There was a significant amount of bowel and stomach gas noted. Patient states she is passing bowel movements and flatus. Patient felt her problem had resolved prior to dismissal. She did take a few sips of water which she handled without difficulty. There was no regurgitation. She was advised to avoid peppermints in the future. Diagnostic Imaging Diagonstic Imaging: Xray Plain Films/CT/US/NM/MRI: chest Comments chest x-ray viewed by me and report reviewed. See report below. Significant amount of gastric and bowel gas noted as an incidental finding. NAME: GARFIELD MCKEON MED REC#: [id number] PT STATUS: REG ER : 1935 PHYSICIAN: DEVI BERGERON MD ADMIT DATE: 09/21/16/ER Draft Date of Exam:09/21/16 CHEST PA/LAT (2 VIEW) INDICATION: Choking incident. COMPARISON: 08/11/2016 FINDINGS: Frontal and lateral views of the chest demonstrate stable heart size and pulmonary vascularity. The lungs are clear. There are no signs of infiltrate, pleural effusions or pneumothoraces. The visualized osseous structures show no acute abnormalities. IMPRESSION: 1. No acute process. No signs of infiltrates, effusions or pneumothoraces. Dictated on workstation # [id number] Dict: 09/21/161916 Trans: 09/21/161917 [id number] Interpreted by: JONI HOBSON Departure Impression Impression: Primary Impression: Esophageal foreign body Qualified Codes: T18.108A - Unspecified foreign body in esophagus causing other injury, initial encounter Disposition: 01 HOME, SELF-CARE Condition: Improved Departure-Patient Inst. Decision time for Depature: 19:35 Referrals: ESTHER DANIELLE DO (PCP/Family) Primary Care Physician Patient Instructions: Foreign Body, Swallowed, Adult (DC) Add. Discharge Instructions: Sip on plenty of clear liquids. Return to the emergency room if you have further problems. Follow-up with your primary care provider within the next 1- 2 weeks. Avoid mints in the future. All discharge instructions reviewed with patient and/or family. Voiced understanding. DEVI BERGERON MD September 21, 2016 19:21
[2016-09-21 19:47] VITALS: BP 150/70
== END 2016-09-21 19:47 | disposition home or self-care (01) ==
LOC: EDUNIT# 18:40 → ER 18:41
DX: T18.108A Unspecified foreign body in esophagus causing other injury, initial encounter (principal); E11.9 Type 2 diabetes mellitus without complications; I48.2 Chronic atrial fibrillation; I10 Essential (primary) hypertension; K21.9 Gastro-esophageal reflux disease without esophagitis; K44.9 Diaphragmatic hernia without obstruction or gangrene; Z79.899 Other long term (current) drug therapy
CPT/HCPCS: 71020; 99283

== ENCOUNTER → 2016-11-02 | Outpatient (CLI) | payer MEDICARE, MEDICAID ==
--- NOTE | 2016-11-02 13:50 | Diagnostic Imaging Report ---
Three views of the left shoulder. INDICATION: Left shoulder pain. FINDINGS: There is no fracture, dislocation or radiopaque foreign body. The acromioclavicular and glenohumeral joints demonstrate minimal subchondral degenerative sclerotic changes with normal alignment seen. IMPRESSION: No acute process. Dictated by: Dictated on workstation # [id number]
== END ==
LOC: RAD 12:08
PROVIDERS: ATTEND Internal Medicine
DX: M25.512 Pain in left shoulder (principal)
CPT/HCPCS: 73030

== ENCOUNTER 2017-01-29 20:53 | Emergency (ER) | payer MEDICARE, MEDICAID ==
[~2017-01-29] VITALS: Ht 170.2 cm; Wt 77.4 kg
[~2017-01-29 20:53] MED LIST changes: -METO-270 PO; +METO-387 PO
[2017-01-29] MEDS ORDERED: METH4TAB PO (23:15)
[2017-01-29] MEDS ORDERED: IBUPROFEN 800 MG (MOTRIN) TAB PO ONE (23:15)
--- NOTE | 2017-01-29 23:15 | ED Upper Extremity ---
General Chief Complaint: Upper Extremity Stated Complaint: R HAND THUMB PAIN Nursing Triage Note: PT STATES X 2 DAYS RT THUMB PAIN/SWELLING UNKNOWN INJURY Nursing Sepsis Screen: No Definite Risk Source: patient History of Present Illness Time seen by provider: 22:30 Initial Comments C/O RIGHT THUMB PAIN AND SWELLING SINCE YESTERDAY HAS HAD SOME PAIN TO THUMB OFF AND ON FOR 'AWHILE" --MOSTLY WHEN SHE USES THE COMPUTER MOUSE TODAY SHE DROVE TO [place] AND BACK AND PAIN HAS BEEN WORSE FINGERS FEEL SLIGHTLY NUMB, BUT THUMB DOES NOT NO KNOWN INJURY--RECENT OR REMOTE PT IS RIGHT HANDED NO SIGNIFICANT PROBLEMS WITH THIS THUMB IN THE PAST HAS NOT TAKEN ANYTHING FOR PAIN PCP: DR. DANIELLE Allergies and Home Medications Allergies Coded Allergies: Penicillins (Verified Allergy, Unknown, 07/26/07) Shellfish (Verified Allergy, Unknown, 07/26/07) Sulfa (Sulfonamide Antibiotics) (Verified Allergy, Unknown, 07/26/07) azithromycin (Unverified Allergy, Unknown, ITCHING, 08/05/13) cephalexin (Verified Allergy, Unknown, 07/26/07) erythromycin base (Verified Allergy, Unknown, 07/26/07) furosemide (Verified Allergy, Unknown, 07/26/07) nitrofurantoin (Unverified Allergy, Unknown, ITCHING/"THICK TONGUE", ) tetracycline (Verified Allergy, Unknown, 07/26/07) Uncoded Allergies: TAPE (Allergy, Unknown, 07/26/07) Home Medications Acetaminophen 500 Mg Tablet, 500 MG PO BID PRN for PAIN, (Reported) Alprazolam 0.25 Mg Tablet, 0.25 MG PO Q8H PRN for ANXIETY, (Reported) Amiodarone HCl 100 Mg Tablet, 100 MG PO DAILY, (Reported) Amlodipine Besylate 5 Mg Tablet, 5 MG PO DAILY, (Reported) Cyanocobalamin 1,000 Mcg/Ml Inj, 1,000 MCG INJ MONTHLY, (Reported) OF EACH MONTH Docusate Sodium 100 Mg Capsule, 100 MG PO DAILY, (Reported) Famotidine/Ca Carb/Mag Hydrox 1 Each Tab.chew, 1 TAB.CHEW PO DAILY PRN for HEARTBURN, (Reported) Fexofenadine Hcl 180 Mg Tablet, 180 MG PO DAILY, (Reported) Hydrocodone/Acetaminophen 1 Each Tablet, 1 TAB PO Q4H PRN for PAIN-MODERATE, #10 Prescribed by: ALMA S KITCHEN on 08/31/16 0921 Hydrocortisone Acetate 25 Mg Supp.rect, 25 MG RC BID for 5 Days, (Reported) 5 DAY SUPPLY FILLED 08-23-16 Irbesartan 300 Mg Tablet, 300 MG PO DAILY, (Reported) Latanoprost 2.5 Ml Drops, 1 DROP OU HS, (Reported) Levothyroxine Sodium 50 Mcg Tablet, 50 MCG PO DAILY, (Reported) Mag Hydrox/Al Hydrox/Simeth 30 Ml Oral.susp, 1 TBS PO BID PRN for INDIGESTION, ( Reported) Methylprednisolone 4 Mg Tab.ds.pk, 4 MG PO UD, #1 Prescribed by: MIRACLE HICKMAN on 01/29/17 2315 Montelukast Sodium 10 Mg Tablet, 10 MG PO DAILY, (Reported) Omeprazole 20 Mg Capsule.dr, 20 MG PO DAILY, (Reported) Potassium Chloride 10 Meq Tab.er.prt, 10 MEQ PO DAILY, (Reported) Sucralfate 1 Gm Tablet, 1 GM PO ACHS, (Reported) Constitutional: no symptoms reported Musculoskeletal: see HPI Skin: no symptoms reported Psychiatric/Neurological: See HPI Past Plreszf-[id number]-[id number] Hx Patient Social History Alcohol Use: Denies Use Recreational Drug Use: No Smoking Status: Never a Smoker 2nd Hand Smoke Exposure: No Recent Foreign Travel: No Contact w/Someone Who Travel: No Recent Infectious Disease Expo: No Recent Hopitalizations: No Immunizations Up To Date Tetanus Booster (TDap): Less than 5yrs PED Vaccines UTD: No Date of Pneumonia Vaccine: October 03, 2010 Date of Influenza Vaccine: Feb 08, 2012 Seasonal Allergies Seasonal Allergies: Yes Surgeries History of Surgeries: Yes (BOWEL RESECTION, LAP NILE) Surgeries: Abdominal, Appendectomy, Cardiac, Gallbladder, Hysterectomy, Rectal , Thyroidectomy, Tonsillectomy Respiratory History of Respiratory Disorde: Yes Respiratory Disorders: Asthma, Sleep Apnea Currently Using CPAP: Yes Currently Using BIPAP: No Cardiovascular History of Cardiac Disorders: Yes (PVC'S, ENLARGED HEART) Cardiac Disorders: Atrial Fibrillation, Cardiomyopathy, Chronic Edema/Swelling , Coronary Artery Disease, Hypertension Neurological History of Neurological Disord: No 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 System Hx 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 Disorders: No 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 Genitourinary History of Genitourinary Disor: Yes Genitourinary Disorders: UTI-Chronic Gastrointestinal History of Gastrointestinal Di: Yes Gastrointestinal Disorders: Gastroesophageal Reflux, Gastrointestinal Bleed, Diverticulosis, Hemorrhoids, Esophagitis, Hiatal Hernia, Ulcer, Irritable Bowel Musculoskeletal History of Musculoskeletal Dis: Yes (OSTEOARTHRITIS, FX RIGHT LOWER LEG, DISLOCATED RIGHT SHOULDER) Musculoskeletal Disorders: Osteoporosis, Arthritis, Fractures Endocrine History of Endocrine Disorders: Yes (THYROIDECTOMY; "PREDIABETIC" PER PT ON 10/23 --NO MEDICATIONS) Endocrine Disorders: Hypothyroidsim, Diabetes, Non-Insulin dep HEENT History of HEENT Disorders: Yes HEENT Disorders: Glaucoma Hearing Impairment: Hard of Hearing Cancer History of Cancer: No Psychosocial History of Psychiatric Problem: Yes Behavioral Health Disorders: Anxiety, Depression Integumentary History of Skin or Integumenta: No Blood Transfusions History of Blood Disorders: Yes (ANEMIA) Adverse Reaction to a Blood Tr: No Family Medical History Significant Family History: No Pertinent Family Hx Family Medial History: Family history: Hypertension 03 FATHER, Onset:40's - 50 09 BROTHER, Onset:40's - 50 History of drug abuse 03 FATHER, Onset:20's - 25 Stroke 03 FATHER, Onset:60 years & older Physical Exam Vital Signs Vital Sign - Last 12Hours 01/29/17 21:15 Temp 98.1 Pulse 53 Resp 20 B/P (MAP) 168/85 Pulse Ox 98 O2 Delivery Room Air Capillary Refill : NONE General Appearance: WD/WN, no apparent distress Hand: Right (TENDERNESS AND SLIGHT SWELLING TO MCP JOINT OF RIGHT THUMB. FULL ROM. NO REDNESS OR BRUISING OR EXTERNAL EVIDENCE OF TRAUMA. ) Neurologic/Tendon: normal sensation, normal motor functions, normal tendon functions Neurologic/Psychiatric: no motor/sensory deficits, alert, normal mood/affect, oriented x 3 Skin: normal color, warm/dry Splinting and Joint Reduction : Splints: Thumb/Wrist Spica Progress/Results/Core Measures Results/Orders My Orders Orders - MIRACLE HICKMAN K DO Hand, Right, 3 Views (01/29/17 22:36) Thumb Spika (01/29/17 23:06) Ibuprofen Tablet (Motrin Tablet) (01/29/17 23:15) Vital Signs/I&O Vital Sign - Last 12Hours 01/29/17 21:15 Temp 98.1 Pulse 53 Resp 20 B/P (MAP) 168/85 Pulse Ox 98 O2 Delivery Room Air Blood Pressure Mean: 112 Diagnostic Imaging Comments XRAYS RIGHT HAND--NO ACUTE PROCESS, ARTHRITIC CHANGES-- PENDING RADIOLOGIST REVIEW Reviewed: Reviewed by Me Departure Impression Impression: Primary Impression: Strain of right thumb Disposition: 01 HOME, SELF-CARE Condition: Stable Departure-Patient Inst. Referrals: ESTHER DANIELLE DO (PCP/Family) Primary Care Physician Patient Instructions: SPLINT CARE, Sprained Thumb (DC) Add. Discharge Instructions: WEAR SPLINT AT ALL TIMES ALTERNATE ICE AND HEAT TO AREA AT 20 MINUTE INTERVALS ELEVATE HAND MUCH POSSIBLE FOLLOW UP WITH DR. DANIELLE NEXT WEEK FOR FURTHER CARE All discharge instructions reviewed with patient and/or family. Voiced understanding. Scripts Methylprednisolone (Medrol) 4 Mg Tab.ds.pk 4 MG PO UD, #1 PKG Prov: MIRACLE HICKMAN DO 01/29/17 MIRACLE HICKMAN DO Jan 29, 2017 23:15
[2017-01-29 23:23] VITALS: BP 168/85
--- NOTE | 2017-01-30 07:39 | Diagnostic Imaging Report ---
INDICATION: Right hand injury. Pain. COMPARISON: None. FINDINGS: 3 views of the right hand demonstrate diffuse osteopenia. Mild degenerative changes are present. There is no bony erosion. There is no fracture, dislocation, or foreign body. IMPRESSION: No fracture or dislocation. Dictated by: Dictated on workstation # [id number]
== END 2017-01-29 23:23 | disposition home or self-care (01) ==
LOC: EDUNIT# 20:53 → ER 20:55
DX: S66.911A Strain of unspecified muscle, fascia and tendon at wrist and hand level, right hand, initial encounter (principal); J45.909 Unspecified asthma, uncomplicated; G47.30 Sleep apnea, unspecified; I48.91 Unspecified atrial fibrillation; I42.9 Cardiomyopathy, unspecified; I25.10 Atherosclerotic heart disease of native coronary artery without angina pectoris; I10 Essential (primary) hypertension; K21.9 Gastro-esophageal reflux disease without esophagitis; M81.0 Age-related osteoporosis without current pathological fracture; M19.90 Unspecified osteoarthritis, unspecified site; E03.9 Hypothyroidism, unspecified; E11.9 Type 2 diabetes mellitus without complications; F41.9 Anxiety disorder, unspecified; F32.9 Major depressive disorder, single episode, unspecified; Z87.19 Personal history of other diseases of the digestive system; Z87.440 Personal history of urinary (tract) infections; Z90.49 Acquired absence of other specified parts of digestive tract; Z90.710 Acquired absence of both cervix and uterus; Z90.89 Acquired absence of other organs; X58.XXXA Exposure to other specified factors, initial encounter
CPT/HCPCS: 73130; 99283

== ENCOUNTER 2017-06-24 09:19 | Outpatient (CLI) | payer MEDICARE, MEDICAID ==
[~2017-06-24] VITALS: Ht 170.2 cm; Wt 77.1 kg
[~2017-06-24 09:19] MED LIST changes: +ACHD5005 PO; -HYDR-3812 PO; +METH4TAB PO
[2017-06-24] MEDS ORDERED: FEXO-46 PO (10:23)
[2017-06-24] MEDS ORDERED: ESOM20CA58 PO (10:23)
== END 2017-06-24 10:29 ==
LOC: PREOP 09:19
PROVIDERS: ATTEND Surgery
DX: Z01.818 Encounter for other preprocedural examination (principal); K21.9 Gastro-esophageal reflux disease without esophagitis

== ENCOUNTER 2017-06-28 07:34 | Day surgery (SDC) | payer MEDICARE, MEDICAID ==
[~2017-06-28] VITALS: Ht 170.2 cm; Wt 77.1 kg
[~2017-06-28 07:34] MED LIST changes: +ESOM20CA58 PO; +FEXO-46 PO
[2017-06-28] MEDS ORDERED: NS IV 500 ML 500 ML ONE (07:38)
--- OUTSIDE RECORDS SUMMARY | 2017-06-28 07:40 | XMS REPORT ---
Author Author BRADEN STOKES [facility] Address [address] [place] [address] Care Team Providers Care Inspector Machine Cut Glass Name Role Phone BRADEN STOKES Unavailable PROBLEMS Unknown Problems ALLERGIES No Information SOCIAL HISTORY Never Assessed PLAN OF CARE VITAL SIGNS MEDICATIONS Unknown Medications RESULTS No Results PROCEDURES No Known procedures IMMUNIZATIONS No Known Immunizations
[2017-06-28] MEDS ORDERED: NS IV 500 ML 500 ML IV PRN (07:41)
--- OUTSIDE RECORDS SUMMARY | 2017-06-28 07:42 | XMS REPORT ---
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
--- OUTSIDE RECORDS SUMMARY | 2017-06-28 07:44 | XMS REPORT | Continuity of Care Document ---
Author Author [facility] Organization [facility] Address Unknown Phone Unavailable Allergies Active Description Code Type Severity Reaction Onset Reported/Identified Relationship to Patient Clinical Status Yes cephalexin [id number] Drug Allergy Unknown N/A 07/26/2007 Yes erythromycin base [id number] Drug Allergy Unknown N/A 07/26/2007 Yes furosemide [id number] Drug Allergy Unknown N/A 07/26/2007 Yes Penicillins [id number] Drug Allergy Unknown N/A 07/26/2007 Yes Shellfish [id number] Drug Allergy Unknown N/A 07/26/2007 Yes Sulfa (Sulfonamide Antibiotics) [id number] Drug Allergy Unknown N/A 2007 Yes TAPE TAPE Unknown N/A 07/26/2007 Yes tetracycline [id number] Drug Allergy Unknown N/A 07/26/2007 Yes ciprofloxacin [id number] Drug Allergy Unknown N/A 02/01/2009 Yes azithromycin [id number] Drug Allergy Unknown ITCHING 08/05/2013 Yes nitrofurantoin [id number] Drug Allergy Unknown ITCHING/"THICK 08/05/2013 Medications There is no data. 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 08/11/2010 Ot 786.05 SHORTNESS OF BREATH 08/11/2010 Ot V58.69 OTH MED,LT, CURRENT USE 01/15/2011 Ot 455.6 HEMORRHOIDS NOS 01/15/2011 Ot 569.3 RECTAL ANAL HEMORRHAGE 02/03/2011 Ot 401.9 HYPERTENSION NOS 02/03/2011 Ot 729.81 SWELLING OF LIMB 02/03/2011 Ot 782.3 EDEMA 02/03/2011 Ot 786.05 SHORTNESS OF BREATH 02/03/2011 Ot V58.69 OTH MED,LT, CURRENT USE 09/10/2011 Ot 709.9 SKIN DISORDER NOS 12/23/2011 Ot 300.00 ANXIETY STATE NOS 12/23/2011 Ot 455.2 INT HEMRRHOID W COMP NEC 12/23/2011 Ot 569.3 RECTAL ANAL HEMORRHAGE 12/28/2011 Ot 455.3 EXT HEMORRHOID W/O COMPL 12/28/2011 Ot 562.10 DIVERTICULOSIS COLON (W/O MENT OF HEMORR 01/27/2012 Ot 455.2 INT HEMRRHOID W COMP NEC 03/05/2012 Ot 379.93 REDNESS/ DISCHARGE OF EYE 03/05/2012 Ot 918.1 SUPERFICIAL INJ [...] Ot 787.91 DIARRHEA 07/04/2012 Ot V58.69 OTH MED,LT, CURRENT USE 07/26/2012 Ot 427.69 PREMATURE BEATS NEC 07/26/2012 Ot 784.99 OTHER SYMPTOMS INVOLVING HEAD AND NECK 07/26/2012 Ot 995.3 ALLERGY, UNSPECIFIED 07/26/2012 Ot V58.69 OTH MED,LT, CURRENT USE 11/07/2012 LORIE GARIBAY FACC, KISHAN FACP CCDS Ot 401.9 HYPERTENSION NOS 11/07/2012 LORIE GARIBAY FACC, ALI FACP CCDS Ot 427.31 ATRIAL FIBRILLATION 11/07/2012 LORIE GARIBAY FACC, ALI FACP CCDS Ot 427.81 SINOATRIAL NODE DYSFUNCT 11/07/2012 LORIE GARIBAY FACC, ALI FACP CCDS Ot 428.0 CONGESTIVE HEART FAILURE NOS 11/07/2012 LORIE GARIBAY FACC, KISHAN FACP CCDS Ot 428.31 ACUTE DIASTOLIC HRT FAILURE 01/02/2013 SMITH ELLIS MD Ot 276.8 HYPOPOTASSEMIA 01/02/2013 SMITH ELLIS MD Ot 300.00 ANXIETY STATE NOS 01/02/2013 SMITH ELLIS MD Ot 311 DEPRESSIVE DISORDER NEC 01/02/2013 SMITH ELLIS MD Ot 401.9 HYPERTENSION NOS 01/02/2013 SMITH ELLIS MD Ot 414.01 CORONARY ATHEROSCLEROSIS OF [place] CORON 01/02/2013 SMITH ELLIS MD Ot 427.31 ATRIAL FIBRILLATION 01/02/2013 SIMTH ELLIS MD Ot 553.3 DIAPHRAGMATIC HERNIA 01/02/2013 [...] LEE MD Ot 414.01 CORONARY ATHEROSCLEROSIS OF [place] CORON 04/05/2013 MINDI LEE MD Ot 427.31 [...] Ot V58.61 ANTICOAGULANTS,LT,CURRENT USE 08/05/2013 ZENIA MEDINA PAROLE AGENT Ot 401.9 HYPERTENSION NOS 08/05/2013 ZENIA MEDINA PAROLE AGENT Ot 564.00 UNSPEC CONSTIPATION 08/05/2013 ZENIA MEDINA PAROLE AGENT Ot 787.20 DYSPHAGIA, UNSPECIFIED 08/07/2013 SMITH ELLIS MD Ot 244.9 HYPOTHYROIDISM NOS 08/07/2013 SMITH ELLIS MD Ot 285.9 ANEMIA NOS 08/07/2013 CALEB GARIBAY, SMITH Timmons Ot 401.9 HYPERTENSION NOS 08/07/2013 CALEB GARIBAY, SMITH Timmons Ot 532.90 DUODENAL ULCER NOS 08/07/2013 SMITH ELLIS MD Ot 535.40 OTH SPECIFIED GASTRITIS,W/O MENTION OF H 08/07/2013 SMITH ELLIS MD Ot 578.9 GASTROINTEST HEMORR NOS 06/19/2014 ZENIA MEDINA PAROLE AGENT Ot 473.9 CHRONIC SINUSITIS NOS 06/19/2014 ZENIA MEDINA PAROLE AGENT Ot 780.79 OTH MALAISE FATIGUE 06/19/2014 ZENIA MEDINA PAROLE AGENT Ot 787.02 NAUSEA ALONE 06/19/2014 ZENIA MEDINA PAROLE AGENT Ot V58.69 OTH MED,LT,CURRENT USE 07/30/2014 HERMANN [...] ABSENCE INTESTINE - LARGE/SMALL 07/30/2014 HERMANN BUTLER MD Ot V58.66 LONG-TERM (CURRENT) USE OF ASPIRIN 08/20/2014 ALAINA IRVING MD Ot 244.9 HYPOTHYROIDISM NOS 08/20/2014 ARISTIDES GARIBAY, ALAINA Ot 300.00 ANXIETY STATE NOS 08/20/2014 ALAINA IRVING MD Ot 401.9 HYPERTENSION NOS 08/20/2014 ARISTIDES GARIBAY, ALAINA Ot 427.31 ATRIAL FIBRILLATION 08/20/2014 ARISTIDES GARIBAY, ALAINA Ot 530.81 ESOPHAGEAL REFLUX 08/20/2014 ARISTIDES GARIBAY, ALAINA Ot 535.40 OTH SPECIFIED GASTRITIS,W/O MENTION OF H 08/20/2014 ALAINA IRVNIG MD Ot 560.9 INTESTINAL OBSTRUCT NOS 08/20/2014 ARISTIDES GARIBAY, ALAINA Ot 564.00 UNSPEC CONSTIPATION 08/20/2014 ARISTIDES GARIBAY, ALAINA Ot 599.0 URIN TRACT INFECTION NOS 08/20/2014 ARISTIDES GARIBAY, ALAINA Ot 244.9 08/20/2014 ARISTIDES GARIBAY, ALAINA Ot 300.00 08/20/2014 ARISTIDES GARIBAY, JOSEKI Ot 401.9 08/20/2014 ARISTIDES GARIBAY, OJSEKI Ot 427.31 08/20/2014 ARISTIDES GARIBAY, ALAINA Ot 530.81 08/20/2014 ARISTIDES GARIBAY, HEATHERAAKI Ot 535.40 08/20/2014 ARISTIDES GARIBAY, HEATHERAAKI Ot 560.9 08/20/2014 ARISTIDES GARIBAY, TAKAAKI Ot 564.00 08/20/2014 ARISTIDES GARIBAY, HEATHERAAKI Ot 599.0 08/20/2014 ARISTIDES GARIBAY, ALAINA Ot 244.9 08/20/2014 ARISTIDES GARIBAY, HEATHERAAKI Ot 300.00 08/20/2014 ARISTIDES GARIBAY, JOSEKI Ot 401.9 08/20/2014 ARISTIDES GARIBAY, JOSEKI Ot 427.31 08/20/2014 ARISTIDES GARIBAY, HEATHERAAKI Ot 530.81 08/20/2014 ARISTIDES GARIBAY, ALAINA Ot 535.40 08/20/2014 ARISTIDES GARIBAY, ALAINA Ot 560.9 08/20/2014 ARISTIDES GARIBAY, ALAINA Ot 564.00 08/20/2014 ARISTIDES GARIBAY, ALAINA Ot 599.0 10/03/2014 CALEB GARIBAY, SMITH Timmons Ot 244.8 ACQUIRED HYPOTHYROID NEC 10/03/2014 CALEB GARIBAY, SMITH Timmons Ot 401.9 HYPERTENSION NOS 10/03/2014 CALEB GARIBAY, SMITH Iain Ot 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 10/06/2014 DANIELLE [...] GARIBAY, CARLINE Kennedy Ot R00.2 PALPITATIONS 05/19/2015 CARLINE LIMA MD Ot R19.8 OTH SYMPTOMS AND SIGNS INVOLVING THE DGS 01/13/2016 SAMIRA ELLIOTT MD Ot R10.84 GENERALIZED ABDOMINAL PAIN 01/13/2016 SAMIRA ELLIOTT MD Ot R19.7 DIARRHEA, UNSPECIFIED 01/13/2016 Ot 789.00 ABDOMINAL PAIN, UNSPECIFIED SITE 01/13/2016 Ot V72.84 EXAM PRE- OPERATIVE NOS 01/13/2016 Ot 455.6 HEMORRHOIDS NOS 01/13/2016 Ot V72.81 EXAM-PRE- OPERATIVE CARDIOVASCULAR 01/13/2016 Ot 477.9 ALLERGIC RHINITIS NOS [...] UNSPECIFIED 02/15/2016 ESTHER DANIELLE DO Ot E87.8 OTH DISORDERS OF ELECTROLYTE AND FLUID B 02/15/2016 [...] PAIN, UNSPECIFIED SITE 03/04/2016 Ot V72.84 EXAM PRE- OPERATIVE NOS 03/04/2016 Ot 455.6 HEMORRHOIDS NOS 03/04/2016 Ot V72.81 EXAM-PRE- OPERATIVE CARDIOVASCULAR 03/04/2016 Ot 477.9 ALLERGIC RHINITIS NOS 03/04/2016 CALEB GARIBAY, SMITH Timmons Ot V72.84 EXAM PRE-OPERATIVE NOS 03/04/2016 DANIELLEESTHER HERNANDEZ DO Ot 564.00 UNSPEC CONSTIPATION 03/04/2016 ESTHER DANIELLE DO Ot 789.00 ABDOMINAL PAIN, UNSPECIFIED SITE 03/04/2016 CALEB GARIBAY, SMITH M Ot V72.84 EXAM PRE-OPERATIVE NOS 03/04/2016 DANIELLEESTHER HERNANDEZ DO Ot 786.50 CHEST PAIN NOS 03/04/2016 DANIELLEESTHER VINSON DO Ot 959.11 OTH INJURY OF CHEST WALL 03/04/2016 ESTHER DANIELLE DO Ot E000.8 OTHER EXTERNAL CAUSE STATUS 03/04/2016 ESTHER DANIELLE DO Ot E928.9 ACCIDENT NOS 03/10/2016 BEBETO HOLLINGSWORTH MD Ot E78.5 HYPERLIPIDEMIA, UNSPECIFIED 03/10/2016 BEBETO HOLLINGSWORTH MD Ot F41.8 OTHER SPECIFIED ANXIETY DISORDERS 03/10/2016 BEBETO HOLLINGSWORTH MD Ot I10 ESSENTIAL (PRIMARY) HYPERTENSION 03/10/2016 BEBETO HOLLINGSWORTH MD Ot I48.0 PAROXYSMAL ATRIAL FIBRILLATION 03/10/2016 BEBETO HOLLINGSWORTH MD Ot I49.5 SICK SINUS SYNDROME 03/10/2016 BEBETO HOLLINGSWORTH MD Ot Z79.01 SERVICE ADMINISTRATOR (CURRENT) USE OF ANTICOAGULANT 03/10/2016 BEBETO HOLLINGSWORTH MD Ot Z79.899 OTHER FCI (CURRENT) DRUG THERAPY 03/10/2016 BEBETO HOLLINGSWORTH MD [...] SYNDROME 03/27/2016 BEBETO HOLLINGSWORTH MD Ot Z79.01 SERVICE ADMINISTRATOR (CURRENT) USE OF ANTICOAGULANT 03/27/2016 BEBETO HOLLINGSWORTH MD Ot Z79.899 OTHER SERVICE ADMINISTRATOR (CURRENT) DRUG THERAPY 03/27/2016 BEBETO HOLLINGSWORTH MD, Ot Z86.73 PRSNL HX OF TIA (TIA), AND CEREB INFRC W 04/09/2016 BEBETO HOLLINGSWORTH MD Ot E78.5 HYPERLIPIDEMIA, UNSPECIFIED 04/09/2016 BEBETO HOLLINGSWORTH MD, Ot F41.8 OTHER SPECIFIED ANXIETY DISORDERS 04/09/2016 BEBETO HOLLINGSWORTH MD Ot I10 ESSENTIAL (PRIMARY) HYPERTENSION 04/09/2016 BEBETO HOLLINGSWORTH MD, Ot I48.0 PAROXYSMAL ATRIAL FIBRILLATION 04/09/2016 BEBETO HOLLINGSWORTH MD, Ot I49.5 SICK SINUS SYNDROME 04/09/2016 BEBETO HOLLINGSWORTH MD, Ot Z79.01 FCI (CURRENT) USE OF ANTICOAGULANT 04/09/2016 BEBETO HOLLINGSWORTH MD, Ot Z79.899 OTHER SERVICE ADMINISTRATOR (CURRENT) DRUG THERAPY 04/09/2016 BEBETO HOLLINGSWORTH MD, [...] DO, Ot I25.10 ATHSCL HEART DISEASE OF [place] CORONARY 08/12/2016 ESTHER DANIELLE DO, Ot I42.9 CARDIOMYOPATHY, UNSPECIFIED 08/12/2016 ESTHER DANIELLE DO, Ot I48.0 PAROXYSMAL ATRIAL FIBRILLATION 08/12/2016 ESTHER DANIELLE DO, Ot K21.0 GASTRO-ESOPHAGEAL REFLUX DISEASE WITH ES 08/12/2016 ESTHER DANIELLE DO, Ot K29.71 GASTRITIS, UNSPECIFIED, WITH BLEEDING 08/12/2016 ESTHER DANIELLE DO Ot K64.2 THIRD DEGREE HEMORRHOIDS 08/12/2016 ESTHER DANIELLE DO Ot M19.91 PRIMARY OSTEOARTHRITIS, UNSPECIFIED SITE 08/12/2016 ESTHER DANIELLE DO Ot M81.0 AGE-RELATED OSTEOPOROSIS W/O CURRENT PAT 08/12/2016 ESTHER DANIELLE DO Ot Z79.01 SERVICE ADMINISTRATOR (CURRENT) USE OF ANTICOAGULANT 08/12/2016 ESTHER DANIELLE [...] 08/22/2016 ZENIA MEDINA APRN Ot Z79.899 OTHER FCI (CURRENT) DRUG THERAPY 08/28/2016 ALAINA IRVING MD Ot E03.9 HYPOTHYROIDISM, UNSPECIFIED 08/28/2016 ALAINA IRVING MD Ot E11.9 TYPE 2 DIABETES MELLITUS WITHOUT COMPLIC 08/28/2016 ALAINA IRVING MD Ot F32.9 MAJOR DEPRESSIVE DISORDER, SINGLE EPISOD 08/28/2016 ALAINA IRVING MD, Ot F41.9 ANXIETY DISORDER, UNSPECIFIED 08/28/2016 ALAINA IRVING MD, Ot G47.33 OBSTRUCTIVE SLEEP APNEA (ADULT) (PEDIATR 08/28/2016 ALAINA IRIVNG MD Ot H91.90 UNSPECIFIED HEARING LOSS, UNSPECIFIED EA 08/28/2016 ALAINA IRVING MD, Ot I25.10 ATHSCL HEART DISEASE OF [place] CORONARY 08/28/2016 ALAINA IRVING MD Ot I42.9 CARDIOMYOPATHY, UNSPECIFIED 08/28/2016 ALAINA IRVING MD Ot I48.91 UNSPECIFIED ATRIAL FIBRILLATION 08/28/2016 ALAINA IRVING MD Ot K21.9 GASTRO-ESOPHAGEAL REFLUX DISEASE WITHOUT 08/28/2016 ALAINA IRVING MD Ot K62.3 RECTAL PROLAPSE 08/28/2016 ALAINA IRVING MD, Ot K64.2 THIRD DEGREE HEMORRHOIDS 08/28/2016 ALAINA IRVING MD, Ot M81.0 AGE-RELATED OSTEOPOROSIS W/O CURRENT PAT 08/28/2016 ALAINA IRVING MD, Ot Z79.01 SERVICE ADMINISTRATOR (CURRENT) USE OF ANTICOAGULANT 08/31/2016 KITCHENMARK REYNA ALMA Ot E03.9 HYPOTHYROIDISM, UNSPECIFIED 08/31/2016 KITCHEN DO ALMA Ot E11.9 TYPE 2 DIABETES MELLITUS WITHOUT COMPLIC 08/31/2016 KITCHEN DO ALMA Ot F32.9 MAJOR DEPRESSIVE DISORDER, SINGLE EPISOD 08/31/2016 KITCHEN DO, ALMA Ot F41.9 ANXIETY DISORDER, UNSPECIFIED 08/31/2016 KITCHEN DO ALMA Ot G47.33 OBSTRUCTIVE SLEEP APNEA (ADULT) (PEDIATR 08/31/2016 FIDELINA DO ALMA Ot H91.90 UNSPECIFIED HEARING LOSS, UNSPECIFIED EA 08/31/2016 FIDELINA DO ALMA Ot I25.10 ATHSCL HEART DISEASE OF [place] CORONARY 08/31/2016 FIDELINA REYNA ALMA Ot I42.9 CARDIOMYOPATHY, UNSPECIFIED 08/31/2016 KITCHEN DO ALMA Ot I48.91 UNSPECIFIED ATRIAL FIBRILLATION 08/31/2016 FIDELINA REYNA ALMA Ot K21.9 GASTRO-ESOPHAGEAL REFLUX DISEASE WITHOUT 08/31/2016 FIDELINA REYNA ALMA Ot K62.3 RECTAL PROLAPSE 08/31/2016 FIDELINA REYNA ALMA Ot K64.2 THIRD DEGREE HEMORRHOIDS 08/31/2016 FIDELINA REYNA ALMA Ot K64.9 UNSPECIFIED HEMORRHOIDS 08/31/2016 FIDELINA REYNA ALMA Ot M81.0 AGE-RELATED OSTEOPOROSIS W/O CURRENT PAT 08/31/2016 FIDELINA REYNA ALMA Ot Z79.01 FCI (CURRENT) USE OF ANTICOAGULANT 09/03/2016 ALAINA IRVING MD Ot E03.9 HYPOTHYROIDISM, UNSPECIFIED 09/03/2016 ALAINA IRVING MD, Ot E11.9 TYPE 2 DIABETES MELLITUS WITHOUT COMPLIC 09/03/2016 ALAINA IRVING MD, Ot F32.9 MAJOR DEPRESSIVE DISORDER, SINGLE EPISOD 09/03/2016 ALAINA IRVING MD, Ot F41.9 ANXIETY DISORDER, UNSPECIFIED 09/03/2016 ALAINA IRVING MD Ot G47.33 OBSTRUCTIVE SLEEP APNEA (ADULT) (PEDIATR 09/03/2016 ALAINA IRVING MD, Ot H91.90 UNSPECIFIED HEARING LOSS, UNSPECIFIED EA 09/03/2016 ALAINA IRVING MD, Ot I25.10 ATHSCL HEART DISEASE OF [place] CORONARY 09/03/2016 ALAINA IRVING MD, Ot I42.9 CARDIOMYOPATHY, UNSPECIFIED 09/03/2016 ALAINA IRVING MD, Ot I48.91 UNSPECIFIED ATRIAL FIBRILLATION 09/03/2016 ALAINA IRVING MD, Ot K21.9 GASTRO-ESOPHAGEAL REFLUX DISEASE WITHOUT 09/03/2016 ALAINA IRVING MD, Ot K62.3 RECTAL PROLAPSE 09/03/2016 ALAINA IRVING MD, Ot K64.2 THIRD DEGREE HEMORRHOIDS 09/03/2016 ALAINA IRVING MD, Ot M81.0 AGE-RELATED OSTEOPOROSIS W/O CURRENT PAT 09/03/2016 ALIANA IRVING MD, Ot Z79.01 SERVICE ADMINISTRATOR (CURRENT) USE OF ANTICOAGULANT 09/21/2016 DEVI BERGERON MD Ot E11.9 TYPE 2 DIABETES MELLITUS WITHOUT COMPLIC 09/21/2016 DEVI BERGERON MD Ot I10 ESSENTIAL (PRIMARY) HYPERTENSION 09/21/2016 DEVI BERGERON MD Ot I48.2 CHRONIC ATRIAL FIBRILLATION 09/21/2016 DEVI BERGERON MD, Ot K21.9 GASTRO-ESOPHAGEAL REFLUX DISEASE WITHOUT 09/21/2016 DEVI BERGERON MD, Ot K44.9 DIAPHRAGMATIC HERNIA WITHOUT OBSTRUCTION 09/21/2016 DEVI BERGERON MD Ot T18.108A UNSP FOREIGN BODY IN ESOPHAGUS CAUSING O 09/21/2016 DEVI BERGERON MD Ot Z79.899 OTHER FCI (CURRENT) DRUG THERAPY 09/22/2016 DEVI BERGERON MD Ot E11.9 TYPE 2 DIABETES MELLITUS WITHOUT COMPLIC 09/22/2016 DEVI BERGERON MD Ot I10 ESSENTIAL (PRIMARY) HYPERTENSION 09/22/2016 DEVI BERGERON MD Ot I48.2 CHRONIC ATRIAL FIBRILLATION 09/22/2016 DEVI BERGERON MD Ot K21.9 GASTRO-ESOPHAGEAL REFLUX DISEASE WITHOUT 09/22/2016 DEVI BERGERON MD Ot K44.9 DIAPHRAGMATIC HERNIA WITHOUT OBSTRUCTION 09/22/2016 DEVI BERGERON MD Ot T18.108A UNSP FOREIGN BODY IN ESOPHAGUS CAUSING O 09/22/2016 DEVI BERGERON MD Ot Z79.899 OTHER SERVICE ADMINISTRATOR (CURRENT) DRUG THERAPY 09/23/2016 DEVI BERGERON MD Ot E11.9 TYPE 2 DIABETES MELLITUS WITHOUT COMPLIC 09/23/2016 DEVI BERGERON MD Ot I10 ESSENTIAL (PRIMARY) HYPERTENSION 09/23/2016 DEVI BERGERON MD Ot I48.2 CHRONIC ATRIAL FIBRILLATION 09/23/2016 DEVI BERGERON MD Ot K21.9 GASTRO-ESOPHAGEAL REFLUX DISEASE WITHOUT 09/23/2016 DEVI BERGERON MD Ot K44.9 DIAPHRAGMATIC HERNIA WITHOUT OBSTRUCTION 09/23/2016 DEVI BERGERON MD Ot T18.108A UNSP FOREIGN BODY IN ESOPHAGUS CAUSING O 09/23/2016 DEVI BERGERON MD Ot Z79.899 OTHER SERVICE ADMINISTRATOR (CURRENT) DRUG THERAPY 10/10/2016 DEVI BERGERON MD Ot E11.9 TYPE 2 DIABETES MELLITUS WITHOUT COMPLIC 10/10/2016 DEVI BERGERON MD Ot I10 ESSENTIAL (PRIMARY) HYPERTENSION 10/10/2016 DEVI BERGERON MD Ot I48.2 CHRONIC ATRIAL FIBRILLATION 10/10/2016 DEVI BERGERON MD Ot K21.9 GASTRO-ESOPHAGEAL REFLUX DISEASE WITHOUT 10/10/2016 DEVI BERGERON MD Ot K44.9 DIAPHRAGMATIC HERNIA WITHOUT OBSTRUCTION 10/10/2016 DEVI BERGERON MD Ot T18.108A UNSP FOREIGN BODY IN ESOPHAGUS CAUSING O 10/10/2016 DEVI BERGERON MD Ot Z79.899 OTHER [facility] (CURRENT) DRUG THERAPY 11/26/2016 ESTHER DANIELLE DO Ot M25.512 PAIN IN LEFT SHOULDER 12/04/2016 ESTHER DANIELLE DO Ot M25.512 PAIN IN LEFT SHOULDER 01/02/2017 ARISTIDES GARIBAY, ALAINA Ot E03.9 HYPOTHYROIDISM, UNSPECIFIED 01/02/2017 ALAINA IRVING MD, Ot E11.9 TYPE 2 DIABETES MELLITUS WITHOUT COMPLIC 01/02/2017 ALAINA IRVING MD, Ot F32.9 MAJOR DEPRESSIVE DISORDER, SINGLE EPISOD 01/02/2017 ALAINA IRVING MD, Ot F41.9 ANXIETY DISORDER, UNSPECIFIED 01/02/2017 ALAINA IRVING MD, Ot G47.33 OBSTRUCTIVE SLEEP APNEA (ADULT) (PEDIATR 01/02/2017 ALAINA IRVING MD, Ot H91.90 UNSPECIFIED HEARING LOSS, UNSPECIFIED EA 01/02/2017 ALAINA IRVING MD, Ot I25.10 ATHSCL HEART DISEASE OF [place] CORONARY 01/02/2017 ALAINA IRVING MD, Ot I42.9 CARDIOMYOPATHY, UNSPECIFIED 01/02/2017 ALAINA IRVING MD, Ot I48.91 UNSPECIFIED ATRIAL FIBRILLATION 01/02/2017 ALAINA IRVING MD, Ot K21.9 GASTRO-ESOPHAGEAL REFLUX DISEASE WITHOUT 01/02/2017 ALAINA IRVING MD, Ot K62.3 RECTAL PROLAPSE 01/02/2017 ALAINA IRVING MD, Ot K64.2 THIRD DEGREE HEMORRHOIDS 01/02/2017 ALAINA IRVING MD, Ot M81.0 AGE-RELATED OSTEOPOROSIS W/O CURRENT PAT 01/02/2017 ALAINA IRVING MD, Ot Z79.01 FCI (CURRENT) USE OF ANTICOAGULANT 01/29/2017 MIRACLE HICKMAN DO Ot E03.9 HYPOTHYROIDISM, UNSPECIFIED 01/29/2017 MIRACLE HICKMAN DO Ot E11.9 TYPE 2 DIABETES MELLITUS WITHOUT COMPLIC 01/29/2017 MIRACLE HICKMAN DO, Ot F32.9 MAJOR DEPRESSIVE DISORDER, SINGLE EPISOD 01/29/2017 MIRACLE HICKMAN DO, Ot F41.9 ANXIETY DISORDER, UNSPECIFIED 01/29/2017 MIRACLE HICKMAN DO Ot G47.30 SLEEP APNEA, UNSPECIFIED 01/29/2017 MIRACLE HICKMAN DO Ot I10 ESSENTIAL (PRIMARY) HYPERTENSION 01/29/2017 MIRACLE HICKMAN DO Ot I25.10 ATHSCL HEART DISEASE OF [place] CORONARY 01/29/2017 MIRACLE HICKMAN DO Ot I42.9 CARDIOMYOPATHY, UNSPECIFIED 01/29/2017 MIRACLE HICKMAN DO Ot I48.91 UNSPECIFIED ATRIAL FIBRILLATION 01/29/2017 VICK REYNA MIRACLE Lisa De Guzman J45.909 UNSPECIFIED ASTHMA, UNCOMPLICATED 01/29/2017 VICK MIRACLE REYNA Ot K21.9 GASTRO-ESOPHAGEAL REFLUX DISEASE WITHOUT 01/29/2017 VICK DEBORAH REYNAA Lisa De Guzman M19.90 UNSPECIFIED OSTEOARTHRITIS, UNSPECIFIED 01/29/2017 VICK REYNADEBORAHA Lisa De Guzman M79.644 PAIN IN RIGHT FINGER(S) 01/29/2017 MIRACLE HICKMAN DO, Ot M81.0 AGE-RELATED OSTEOPOROSIS W/O CURRENT PAT 01/29/2017 MIRACLE HICKMAN DO, Ot S66.911A STRAIN OF UNSP MUSC/FASC/TEND AT WRS/HND 01/29/2017 MIRACLE HICKMAN DO, Ot X58.XXXA EXPOSURE TO OTHER SPECIFIED FACTORS, INI 01/29/2017 MIRACLE HICKMAN DO, Ot Z87.19 PERSONAL HISTORY OF OTHER DISEASES OF TH 01/29/2017 VICK MIRACLE REYNA Ot Z87.440 PERSONAL HISTORY OF URINARY (TRACT) INFE 01/29/2017 MIRACLE HICKMAN DO, Ot Z90.49 ACQUIRED ABSENCE OF OTHER SPECIFIED PART 01/29/2017 MIRACLE HICKMAN DO, Ot Z90.710 ACQUIRED ABSENCE OF BOTH CERVIX AND UTER 01/29/2017 MIRACLE HICKMAN DO, Ot Z90.89 ACQUIRED ABSENCE OF OTHER ORGANS Procedures Code Description Performed By Performed On 45.13 04/04/2013 44.43 07/29/2014 [id number] EXCISION OF ESOPHAGOGASTRIC JUNCTION, EN 08/11/2016 [id number] EXCISION OF STOMACH, PYLORUS, ENDO, DIAG 08/11/2016 [id number] INSPECTION OF LOWER INTESTINAL TRACT, EN 08/11/2016 Results Test Result Range Complete blood count (CBC) with automated white blood cell (WBC) differential - 01/12/16 22:45 Blood leukocytes automated count (number/volume) 10.2 10*3/uL 4.3-11.0 Blood erythrocytes automated count (number/volume) 5.44 10*6/uL 4.35-5.85 Venous blood hemoglobin measurement (mass/volume) 13.1 [...] Automated blood platelet mean volume measurement 10.6 [foz_us] 7.4-10.4 Automated blood neutrophils/100 leukocytes 73 % [...] Serum or plasma sodium measurement (moles/volume) 142 mmol/L 135-145 Serum or plasma potassium measurement (moles/volume) 3.9 mmol/L 3.6-5.0 Serum or plasma chloride measurement (moles/volume) 109 mmol/L 98-107 Carbon dioxide 19 mmol/L 21-32 Serum or plasma anion gap determination (moles/volume) 14 mmol/L 5-14 Serum or plasma urea nitrogen measurement (mass/volume) 11 mg/dL 7-18 Serum or plasma creatinine measurement (mass/volume) 0.83 mg/dL 0.60-1.30 Serum or plasma urea nitrogen/creatinine mass [...] 20:35 Blood leukocytes automated count (number/volume) 5.8 10*3/uL 4.3-11.0 Blood erythrocytes automated count (number/volume) 4.87 10*6/uL 4.35-5.85 Venous blood hemoglobin measurement (mass/volume) 12.0 [...] Automated blood platelet mean volume measurement 10.5 [foz_us] 7.4-10.4 Automated blood neutrophils/100 leukocytes 60 % [...] Serum or plasma sodium measurement (moles/volume) 140 mmol/L 135-145 Serum or plasma potassium measurement (moles/volume) 3.6 mmol/L 3.6-5.0 Serum or plasma chloride measurement (moles/volume) 108 mmol/L 98-107 Carbon dioxide 17 mmol/L 21-32 Serum or plasma anion gap determination (moles/volume) 15 mmol/L 5-14 Serum or plasma urea nitrogen measurement (mass/volume) 11 mg/dL 7-18 Serum or plasma creatinine measurement (mass/volume) 0.81 mg/dL 0.60-1.30 Serum or plasma urea nitrogen/creatinine mass [...] or plasma troponin i.cardiac measurement (mass/volume) < ng/ mL <0.30 Myoglobin, serum - 02/13/16 20:35 Myoglobin, [...] Urine pH measurement by test strip 8 5-9 Specific gravity of urine by test strip 1.015 1.016- 1.022 Urine protein assay by test strip, semi-quantitative [...] 02:36 Blood leukocytes automated count (number/volume) 8.4 10*3/uL 4.3-11.0 Blood erythrocytes automated count (number/volume) 4.72 10*6/uL 4.35-5.85 Venous blood hemoglobin measurement (mass/volume) 11.6 [...] Automated blood platelet mean volume measurement 10.4 [foz_us] 7.4-10.4 Automated blood neutrophils/100 leukocytes 75 % [...] or plasma troponin i.cardiac measurement (mass/volume) < ng/ mL <0.30 Serum or plasma troponin i.cardiac measurement (mass/volume) - 02/14/16 02:36 Serum or plasma troponin i.cardiac measurement (mass/volume) < ng/ mL <0.30 Comprehensive metabolic panel - 02/14/16 02:36 Serum or plasma sodium measurement (moles/volume) 140 mmol/L 135-145 Serum or plasma potassium measurement (moles/volume) 3.8 mmol/L 3.6-5.0 Serum or plasma chloride measurement (moles/volume) 109 mmol/L 98-107 Carbon dioxide 16 mmol/L 21-32 Serum or plasma anion gap determination (moles/volume) 15 mmol/L 5-14 Serum or plasma urea nitrogen measurement (mass/volume) 11 mg/dL 7-18 Serum or plasma creatinine measurement (mass/volume) 0.75 mg/dL 0.60-1.30 Serum or plasma urea nitrogen/creatinine mass [...] Serum or plasma cholesterol measurement (mass/volume) 180 mg/dL < 200 Serum or plasma cholesterol in HDL measurement (mass/volume) 40 mg/ dL 40-60 Cholesterol in LDL [mass/volume] in serum or plasma by direct assay 121 mg/dL 1-129 Serum or plasma cholesterol in VLDL measurement (mass/volume) 26 mg/ dL 5-40 Capillary blood glucose measurement by glucometer [...] Serum or plasma sodium measurement (moles/volume) 140 mmol/L 135-145 Serum or plasma potassium measurement (moles/volume) 3.9 mmol/L 3.6-5.0 Serum or plasma chloride measurement (moles/volume) 108 mmol/L 98-107 Carbon dioxide 20 mmol/L 21-32 Serum or plasma anion gap determination (moles/volume) 12 mmol/L 5-14 Serum or plasma urea nitrogen measurement (mass/volume) 15 mg/dL 7-18 Serum or plasma creatinine measurement (mass/volume) 0.87 mg/dL 0.60-1.30 Serum or plasma urea nitrogen/creatinine mass ratio 17 NRG Serum or plasma creatinine measurement with calculation of estimated glomerular filtration rate > NRG Serum or plasma glucose measurement (mass/volume) 175 mg/dL 70-105 Serum or plasma calcium measurement (mass/volume) 9.3 mg/dL 8.5-10.1 Serum or plasma phosphate measurement (mass/volume) - 02/15/16 07:05 Serum or plasma phosphate measurement (mass/volume) 2.6 mg/dL 2.3-4.7 Magnesium - 02/15/16 07:05 Magnesium 2.4 mg/dL 1.8-2.4 Complete blood count (CBC) with automated white blood cell (WBC) differential - 02/15/16 07:40 Blood leukocytes automated count (number/volume) 5.2 10*3/uL 4.3-11.0 Blood erythrocytes automated count (number/volume) 4.95 10*6/uL 4.35-5.85 Venous blood hemoglobin measurement (mass/volume) 12.1 [...] Automated blood platelet mean volume measurement 10.5 [foz_us] 7.4-10.4 Automated blood neutrophils/100 leukocytes 57 % [...] 20:20 Blood leukocytes automated count (number/volume) 5.8 10*3/uL 4.3-11.0 Blood erythrocytes automated count (number/volume) 5.05 10*6/uL 4.35-5.85 Venous blood hemoglobin measurement (mass/volume) 13.0 [...] Automated blood platelet mean volume measurement 10.0 [foz_us] 7.4-10.4 Automated blood neutrophils/100 leukocytes 58 % [...] Serum or plasma sodium measurement (moles/volume) 142 mmol/L 135-145 Serum or plasma potassium measurement (moles/volume) 4.2 mmol/L 3.6-5.0 Serum or plasma chloride measurement (moles/volume) 108 mmol/L 98-107 Carbon dioxide 23 mmol/L 21-32 Serum or plasma anion gap determination (moles/volume) 11 mmol/L 5-14 Serum or plasma urea nitrogen measurement (mass/volume) 19 mg/dL 7-18 Serum or plasma creatinine measurement (mass/volume) 0.99 mg/dL 0.60-1.30 Serum or plasma urea nitrogen/creatinine mass [...] panel - 08/09/16 22:12 ABO+Rh group OP NR Transfusion band number [id number] NR Blood group antibody screen NEGATIVE NR [...] 04:12 Blood leukocytes automated count (number/volume) 6.9 10*3/uL 4.3-11.0 Blood erythrocytes automated count (number/volume) 4.32 10*6/uL 4.35-5.85 Venous blood hemoglobin measurement (mass/volume) 11.0 [...] Automated blood platelet mean volume measurement 10.2 [foz_us] 7.4-10.4 Automated blood neutrophils/100 leukocytes 77 % [...] Serum or plasma sodium measurement (moles/volume) 140 mmol/L 135-145 Serum or plasma potassium measurement (moles/volume) 4.3 mmol/L 3.6-5.0 Serum or plasma chloride measurement (moles/volume) 110 mmol/L 98-107 Carbon dioxide 21 mmol/L 21-32 Serum or plasma anion gap determination (moles/volume) 9 mmol/L 5-14 Serum or plasma urea nitrogen measurement (mass/volume) 16 mg/dL 7-18 Serum or plasma creatinine measurement (mass/volume) 0.82 mg/dL 0.60-1.30 Serum or plasma urea nitrogen/creatinine mass [...] Serum or plasma phosphate measurement (mass/volume) 3.1 mg/dL 2.3-4.7 Magnesium - 08/10/16 04:12 Magnesium 2.0 [...] 05:25 Blood leukocytes automated count (number/volume) 5.5 10*3/uL 4.3-11.0 Blood erythrocytes automated count (number/volume) 4.05 10*6/uL 4.35-5.85 Venous blood hemoglobin measurement (mass/volume) 10.6 [...] Automated blood platelet mean volume measurement 9.8 [foz_us] 7.4-10.4 Automated blood neutrophils/100 leukocytes 61 % [...] Serum or plasma sodium measurement (moles/volume) 140 mmol/L 135-145 Serum or plasma potassium measurement (moles/volume) 4.2 mmol/L 3.6-5.0 Serum or plasma chloride measurement (moles/volume) 109 mmol/L 98-107 Carbon dioxide 24 mmol/L 21-32 Serum or plasma anion gap determination (moles/volume) 7 mmol/L 5-14 Serum or plasma urea nitrogen measurement (mass/volume) 10 mg/dL 7-18 Serum or plasma creatinine measurement (mass/volume) 0.80 mg/dL 0.60-1.30 Serum or plasma urea nitrogen/creatinine mass ratio 13 NRG Serum or plasma creatinine measurement with calculation of estimated glomerular filtration rate > NRG Serum or plasma glucose measurement (mass/volume) 130 mg/dL 70-105 Serum or plasma calcium measurement (mass/volume) 8.2 mg/dL 8.5-10.1 Serum or plasma phosphate measurement (mass/volume) - 08/11/16 05:25 Serum or plasma phosphate measurement (mass/volume) 2.0 mg/dL 2.3-4.7 Magnesium - 08/11/16 05:25 Magnesium 2.6 [...] 06:06 Blood leukocytes automated count (number/volume) 6.4 10*3/uL 4.3-11.0 Blood erythrocytes automated count (number/volume) 4.18 10*6/uL 4.35-5.85 Venous blood hemoglobin measurement (mass/volume) 10.9 [...] Automated blood platelet mean volume measurement 10.1 [foz_us] 7.4-10.4 Automated blood neutrophils/100 leukocytes 64 % [...] Serum or plasma sodium measurement (moles/volume) 139 mmol/L 135-145 Serum or plasma potassium measurement (moles/volume) 3.9 mmol/L 3.6-5.0 Serum or plasma chloride measurement (moles/volume) 109 mmol/L 98-107 Carbon dioxide 21 mmol/L 21-32 Serum or plasma anion gap determination (moles/volume) 9 mmol/L 5-14 Serum or plasma urea nitrogen measurement (mass/volume) 10 mg/dL 7-18 Serum or plasma creatinine measurement (mass/volume) 0.79 mg/dL 0.60-1.30 Serum or plasma urea nitrogen/creatinine mass ratio 13 NRG Serum or plasma creatinine measurement with calculation of estimated glomerular filtration rate > NRG Serum or plasma glucose measurement (mass/volume) 121 mg/dL 70-105 Serum or plasma calcium measurement (mass/volume) 8.2 mg/dL 8.5-10.1 Serum or plasma phosphate measurement (mass/volume) - 08/12/16 06:06 Serum or plasma phosphate measurement (mass/volume) 2.0 mg/dL 2.3-4.7 Magnesium - 08/12/16 06:06 Magnesium 2.6 [...] 22:10 Blood leukocytes automated count (number/volume) 6.0 10*3/uL 4.3-11.0 Blood erythrocytes automated count (number/volume) 4.08 10*6/uL 4.35-5.85 Venous blood hemoglobin measurement (mass/volume) 10.1 [...] Automated blood platelet mean volume measurement 9.7 [foz_us] 7.4-10.4 Automated blood neutrophils/100 leukocytes 61 % [...] Serum or plasma sodium measurement (moles/volume) 141 mmol/L 135-145 Serum or plasma potassium measurement (moles/volume) 4.2 mmol/L 3.6-5.0 Serum or plasma chloride measurement (moles/volume) 109 mmol/L 98-107 Carbon dioxide 21 mmol/L 21-32 Serum or plasma anion gap determination (moles/volume) 11 mmol/L 5-14 Serum or plasma urea nitrogen measurement (mass/volume) 17 mg/dL 7-18 Serum or plasma creatinine measurement (mass/volume) 0.92 mg/dL 0.60-1.30 Serum or plasma urea nitrogen/creatinine mass [...] 19:37 Blood leukocytes automated count (number/volume) 5.5 10*3/uL 4.3-11.0 Blood erythrocytes automated count (number/volume) 3.52 10*6/uL 4.35-5.85 Venous blood hemoglobin measurement (mass/volume) 8.8 [...] Automated blood platelet mean volume measurement 9.5 [foz_us] 7.4-10.4 Automated blood neutrophils/100 leukocytes 62 % [...] Serum or plasma sodium measurement (moles/volume) 143 mmol/L 135-145 Serum or plasma potassium measurement (moles/volume) 3.9 mmol/L 3.6-5.0 Serum or plasma chloride measurement (moles/volume) 111 mmol/L 98-107 Carbon dioxide 22 mmol/L 21-32 Serum or plasma anion gap determination (moles/volume) 10 mmol/L 5-14 Serum or plasma urea nitrogen measurement (mass/volume) 18 mg/dL 7-18 Serum or plasma creatinine measurement (mass/volume) 0.89 mg/dL 0.60-1.30 Serum or plasma urea nitrogen/creatinine mass [...] RED CELLS LEUKO REDUCED AS1 PRSMD TRFSD 08/28/16 1454 NR Blood type T Indirect antibody screen panel - 08/26/16 19:37 ABO+Rh group OP NR Transfusion band number [id number] NR Blood group antibody screen NEGATIVE NRG Methicillin resistant Staphylococcus aureus (MRSA) screening culture - 00:15 Methicillin resistant Staphylococcus aureus (MRSA) screening culture NEG NRG Complete blood count (CBC) with automated white blood cell (WBC) differential - 08/27/16 04:18 Blood leukocytes automated count (number/volume) 4.7 10*3/uL 4.3-11.0 Blood erythrocytes automated count (number/volume) 3.29 10*6/uL 4.35-5.85 Venous blood hemoglobin measurement (mass/volume) 8.3 [...] Automated blood platelet mean volume measurement 9.9 [foz_us] 7.4-10.4 Automated blood neutrophils/100 leukocytes 53 % [...] Serum or plasma sodium measurement (moles/volume) 142 mmol/L 135-145 Serum or plasma potassium measurement (moles/volume) 3.8 mmol/L 3.6-5.0 Serum or plasma chloride measurement (moles/volume) 114 mmol/L 98-107 Carbon dioxide 18 mmol/L 21-32 Serum or plasma anion gap determination (moles/volume) 10 mmol/L 5-14 Serum or plasma urea nitrogen measurement (mass/volume) 15 mg/dL 7-18 Serum or plasma creatinine measurement (mass/volume) 0.80 mg/dL 0.60-1.30 Serum or plasma urea nitrogen/creatinine mass ratio 19 NRG Serum or plasma creatinine measurement with calculation of estimated glomerular filtration rate > NRG Serum or plasma glucose measurement (mass/volume) 123 mg/dL 70-105 Serum or plasma calcium measurement (mass/volume) 8.5 mg/dL 8.5-10.1 Automated blood complete blood count (hemogram) panel - 08/28/16 04:08 Blood leukocytes automated count (number/volume) 6.6 10*3/uL 4.3-11.0 Blood erythrocytes automated count (number/volume) 3.30 10*6/uL 4.35-5.85 Venous blood hemoglobin measurement (mass/volume) 8.0 [...] Automated blood platelet mean volume measurement 10.1 [foz_us] 7.4-10.4 Whole blood basic metabolic panel - 08/28/16 04:08 Serum or plasma sodium measurement (moles/volume) 140 mmol/L 135-145 Serum or plasma potassium measurement (moles/volume) 3.8 mmol/L 3.6-5.0 Serum or plasma chloride measurement (moles/volume) 112 mmol/L 98-107 Carbon dioxide 18 mmol/L 21-32 Serum or plasma anion gap determination (moles/volume) 10 mmol/L 5-14 Serum or plasma urea nitrogen measurement (mass/volume) 10 mg/dL 7-18 Serum or plasma creatinine measurement (mass/volume) 0.82 mg/dL 0.60-1.30 Serum or plasma urea nitrogen/creatinine mass ratio 12 NRG Serum or plasma creatinine measurement with calculation of estimated glomerular filtration rate > NRG Serum or plasma glucose measurement (mass/volume) 112 mg/dL 70-105 Serum or plasma calcium measurement (mass/volume) 8.2 mg/dL 8.5-10.1 Complete blood count (CBC) with automated white blood cell (WBC) differential - 08/29/16 11:50 Blood leukocytes automated count (number/volume) 5.3 10*3/uL 4.3-11.0 Blood erythrocytes automated count (number/volume) 3.85 10*6/uL 4.35-5.85 Venous blood hemoglobin measurement (mass/volume) 9.7 [...] Automated blood platelet mean volume measurement 10.0 [foz_us] 7.4-10.4 Automated blood neutrophils/100 leukocytes 70 % [...] Serum or plasma sodium measurement (moles/volume) 142 mmol/L 135-145 Serum or plasma potassium measurement (moles/volume) 3.6 mmol/L 3.6-5.0 Serum or plasma chloride measurement (moles/volume) 112 mmol/L 98-107 Carbon dioxide 20 mmol/L 21-32 Serum or plasma anion gap determination (moles/volume) 10 mmol/L 5-14 Serum or plasma urea nitrogen measurement (mass/volume) 12 mg/dL 7-18 Serum or plasma creatinine measurement (mass/volume) 0.91 mg/dL 0.60-1.30 Serum or plasma urea nitrogen/creatinine mass [...] Status Pt. Type Provider Facility Loc./Unit Complaint [id number] 01/29/2017 20:55:00 01/29/2017 23:23:00 DIS Emergency MIRACLE HICKMAN DO [facility] ER R HAND THUMB PAIN [id number] 11/02/2016 12:08:00 11/02/2016 23:59:59 CLS Outpatient ESTHER DANIELLE DO [facility] RAD L SHOULDER PAIN [id number] 09/21/2016 18:41:00 09/21/2016 19:47:00 DIS Emergency RUBIO GARIBAY, DEVI Haas [facility] ER CHOKING [id number] 08/28/2016 12:32:00 08/31/2016 13:35:00 DIS Inpatient ALMA KITCHEN DO [facility] 4TH SWB-ANEMIA [id number] 08/26/2016 19:35:00 08/28/2016 12:31:00 DIS [facility], HEMORRHOIDS [id number] 08/22/2016 21:40:00 08/22/2016 23:26:00 DIS Emergency ZENIA MEDINA APRN [facility] ER RECTAL BLEEDING [id number] 08/09/2016 22:05:00 08/12/2016 14:30:00 DIS Inpatient ESTHER DANIELLE DO [facility] 4TH LOWER GIB, ABD PX, H/ O GASTRIK ULCERS [id number] 03/04/2016 10:45:00 03/04/2016 23:59:59 CLS Outpatient BEBETO HOLLINGSWORTH MD [facility] CATH AR,HTN,FATIGUE,PAF,SSS, DIZZINESS [id number] 02/13/2016 21:59:00 02/15/2016 13:48:00 DIS Inpatient ESTHER DANIELLE DO [facility] ICU TIA;UNCONTROLLED HTN; INTERMITTENT A.FIB [id number] 01/12/2016 22:44:00 01/13/2016 00:02:00 DIS Emergency SAMIRA ELLIOTT MD [facility] ER ABD PAIN/N/V [id number] 05/19/2015 09:06:00 05/19/2015 12:33:00 DIS Emergency CARLINE LIMA MD [facility] ER ELEVATED BP, DIARRHEA [id number] 10/31/2014 14:02:00 10/31/2014 23:59:59 CLS Outpatient ESTHER DANIELLE DO [facility] RAD CHEST PAIN [id number] 10/03/2014 11:39:00 10/03/2014 18:05:00 DIS Outpatient SMITH ELLIS MD [facility] SDC STRICTURE; ABNORMAL CT [id number] 09/27/2014 06:02:00 09/27/2014 23:59:59 CLS Outpatient SMITH ELLIS MD [facility] PREOP STRICTURE; ABNORMAL CT [id number] 08/23/2014 14:18:00 08/23/2014 23:59:59 CLS Outpatient ESTHER DANIELLE DO [facility] RAD CONSTIPATION,ABD PAIN [id number] 08/18/2014 10:00:00 08/20/2014 11:15:00 DIS Inpatient ALAINA IRVING MD [facility] SURGICAL PARTIAL BOWEL OBSTRUCTIN,UTI,RECENT GI BLEED [id number] 07/29/2014 02:11:00 07/30/2014 16:30:00 DIS Inpatient CARRIE GARIBAY, HERMANN Gonzalez [facility] SURGICAL GI BLEED [id number] 06/19/2014 12:06:00 06/19/2014 14:07:00 DIS Emergency ZENIA MEDINA APRN [facility] ER NAUSEATED FEELS LIKE HEART IS RACING [id number] 08/07/2013 06:45:00 08/07/2013 10:20:00 DIS Outpatient SMITH ELLIS MD [facility] SDC GI BLEED [id number] 08/05/2013 09:17:00 08/05/2013 12:06:00 DIS Emergency ZENIA MEDINA APRN [facility] ER ELEVATED BP,NAUSEA [id number] 08/03/2013 07:27:00 08/03/2013 23:59:59 CLS Outpatient SMITH ELLIS MD [facility] PREOP GI BLEED [id number] 04/02/2013 10:19:00 04/05/2013 13:00:00 DIS Inpatient MINDI LEE MD [facility] SURGICAL GI BLEED [id number] 12/31/2012 13:04:00 01/02/2013 10:45:00 DIS Inpatient SMITH ELLIS MD [facility] SURGICAL BOWEL OBSTRUCTION [id number] 11/06/2012 15:55:00 11/07/2012 12:00:00 DIS Inpatient LORIE GARIBAY FACC, KISHAN CASILLAS CCDS [facility] CSD A FIB [id number] 08/12/2012 09:32:00 Document Registration [id number] 07/26/2012 08:35:00 Document Registration [id number] 07/03/2012 18:35:00 Document Registration [id number] 03/05/2012 03:50:00 Document Registration [id number] 01/27/2012 05:36:00 Document Registration [id number] 01/18/2012 07:30:00 Document Registration [id number] 12/28/2011 11:50:00 Document Registration [id number] 12/25/2011 08:22:00 Document Registration [id number] 12/23/2011 08:05:00 Document Registration [id number] 10/22/2011 07:43:00 Document Registration [id number] 09/09/2011 22:17:00 Document Registration [id number] 02/03/2011 13:43:00 Document Registration [id number] 01/15/2011 09:33:00 Document Registration [id number] 08/11/2010 16:30:00 Document Registration
[2017-06-28] MEDS ORDERED: HURRICAINE EXT TUBE (BENZOCAINE) XX PRN (07:45)
[2017-06-28 08:00] VITALS: BP 159/81
[2017-06-28] MEDS ORDERED: fentaNYL INJECTION 100 MCG/2 ML AMP ONE (09:03)
[2017-06-28] MEDS ORDERED: MIDAZOLAM 2 MG/2 ML (VERSED) VIAL ONE ×4 (09:03→09:04)
[2017-06-28] MEDS ORDERED: HURRICAINE EXT TUBE (BENZOCAINE) ONE (09:04)
[2017-06-28] MEDS: MIDAZOLAM 2 MG/2 ML (VERSED) VIAL IVP PRN ×2 (09:12→09:18)
[2017-06-28] MEDS: fentaNYL INJECTION 100 MCG/2 ML AMP IVP PRN ×2 (09:13→09:17)
--- NOTE | 2017-06-28 09:23 | Conscious Sedation/ASA ---
Conscious Sedation Pre-Proced Time Reviewed: 08:58 ASA Class: 3 Airway Mallampati Classification: ([place] appropriate class) I. II. III, IV Lungs Heart ASA score ASA 1: a normal healthy patient ASA 2: a patient with a mild systemic disease (mid diabetes, controlled hypertension, obesity ASA 3: a patient with a severe systemic disease that limits activity (angina , COPD, prior Myocardial infarction) ASA 4: a patient with an incapacitating disease that is a constant threat to life (CHF, renal failure) ASA 5: a moribund patient not expected to survive 24 hrs. (ruptured aneurysm) ASA 6: a declared brain patient whose organs are being harvested. For emergent operations, add the letter E after the classification Grade 2 Sedation Plan: Discussed options with patient/fam Note The patient is an appropriate candidate to undergo the planned procedure, sedation, and anesthesia. The patient immediately re-assessed prior to indication. SMITH ELLIS MD Jun 28, 2017 9:23 am
--- NOTE | 2017-06-28 09:23 | History & Physicial ---
History of Present Illness History of Present Illness Reason for visit/HPI to undergo an upper endoscopy regarding symptoms of heartburn and occasional dysphagia. Date of Admission 06/28/17 Date Seen by Provider: Jun 28, 2017 Time Seen by Provider: 08:58 I consulted on this patient on 06/28/17 09:21 Attending Physician Smith Ellis MD Admitting Physician Martinez Soni DO Consult Allergies and Home Medications Allergies Coded Allergies: Penicillins (Verified Allergy, Unknown, 07/26/07) Shellfish (Verified Allergy, Unknown, 07/26/07) Sulfa (Sulfonamide Antibiotics) (Verified Allergy, Unknown, 07/26/07) azithromycin (Unverified Allergy, Unknown, ITCHING, 08/05/13) cephalexin (Verified Allergy, Unknown, 07/26/07) erythromycin base (Verified Allergy, Unknown, 07/26/07) furosemide (Verified Allergy, Unknown, 07/26/07) nitrofurantoin (Unverified Allergy, Unknown, ITCHING/"THICK TONGUE", ) tetracycline (Verified Allergy, Unknown, 07/26/07) Uncoded Allergies: TAPE (Allergy, Unknown, 07/26/07) Home Medications Acetaminophen 500 Mg Tablet, 500 MG PO BID PRN for PAIN, (Reported) Alprazolam 0.25 Mg Tablet, 0.25 MG PO Q8H PRN for ANXIETY, (Reported) Amiodarone HCl 100 Mg Tablet, 100 MG PO DAILY, (Reported) Amlodipine Besylate 5 Mg Tablet, 5 MG PO DAILY, (Reported) Cyanocobalamin 1,000 Mcg/Ml Inj, 1,000 MCG INJ MONTHLY, (Reported) OF EACH MONTH Docusate Sodium 100 Mg Capsule, 100 MG PO DAILY, (Reported) Esomeprazole Magnesium 20 Mg Capsule.dr, 20 MG PO DAILY, (Reported) Irbesartan 300 Mg Tablet, 300 MG PO DAILY, (Reported) Latanoprost 2.5 Ml Drops, 1 DROP OU HS, (Reported) Levothyroxine Sodium 50 Mcg Tablet, 50 MCG PO DAILY, (Reported) Mag Hydrox/Al Hydrox/Simeth 30 Ml Oral.susp, 1 TBS PO BID PRN for INDIGESTION, ( Reported) Montelukast Sodium 10 Mg Tablet, 10 MG PO DAILY, (Reported) Potassium Chloride 10 Meq Tab.er.prt, 10 MEQ PO DAILY, (Reported) Past Knleehp-Fcpctg-Zajphm Hx Patient Social History Marrital Status: Employed/Student: retired Alcohol Use: Denies Use Recreational Drug Use: No Smoking Status: Never a Smoker 2nd Hand Smoke Exposure: No Recent Foreign Travel: No Contact w/other who traveled: No Recent Hopitalizations: No Recent Infectious Disease Expo: No Immunizations Up To Date Tetanus Booster (TDap): Less than 5yrs Pediatric: No Date of Pneumonia Vaccine: October 03, 2016 Date of Influenza Vaccine: Feb 08, 2012 Seasonal Allergies Seasonal Allergies: Yes Surgeries Yes (BOWEL RESECTION, LAP NILE) Abdominal, Appendectomy, Cardiac, Gallbladder, Hysterectomy, Rectal, Thyroidectomy, Tonsillectomy Respiratory Yes Currently Using CPAP: Yes Currently Using BIPAP: No Cardiovascular Yes (PVC'S, ENLARGED HEART) Atrial Fibrillation, Cardiomyopathy, Chronic Edema/Swelling, Coronary Artery Disease, Hypertension Neurological No 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 System 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 Genitourinary Yes Dialysis, UTI-Chronic Gastrointestinal Yes Gastroesophageal Reflux, Gastrointestinal Bleed, Diverticulosis, Hemorrhoids, Esophagitis, Hiatal Hernia, Ulcer, Irritable Bowel Musculoskeletal Yes (OSTEOARTHRITIS, FX RIGHT LOWER LEG, DISLOCATED RIGHT SHOULDER) Osteoporosis, Arthritis, Fractures Endocrine History of Endocrine Disorders: Yes (THYROIDECTOMY; "PREDIABETIC" PER PT ON 10/23 --NO MEDICATIONS) Endocrine Disorders: Hypothyroidsim, Diabetes, Non-Insulin dep HEENT History of HEENT Disorders: Yes HEENT Disorders: Glaucoma Hearing Impairment: Hard of Hearing Cancer No Psychosocial History of Psychiatric Problem: Yes Behavioral Health Disorders: Anxiety, Depression Integumentary History of Skin or Integumenta: No Blood Transfusions History of Blood Disorders: Yes (ANEMIA) Adverse Reaction to a Blood Tr: No Family Medical History Significant Family History: No Pertinent Family Hx Family Hx: Family history: Hypertension 03 FATHER, Onset:40's - 50 09 BROTHER, Onset:40's - 50 History of drug abuse 03 FATHER, Onset:20's - 25 Stroke 03 FATHER, Onset:60 years & older Constitutional: no symptoms reported EENTM: see HPI Respiratory: no symptoms reported Cardiovascular: no symptoms reported Gastrointestinal: see HPI Genitourinary: no symptoms reported Skin: no symptoms reported Psychiatric/Neurological: No Symptoms Reported Physical Exam Vital Signs Vital Signs - First Documented 06/28/17 08:00 Temp 97.8 Pulse 54 Resp 16 B/P (MAP) 159/81 (107) Pulse Ox 96 O2 Delivery Room Air Capillary Refill : General Appearance: No Apparent Distress HEENT: Normal ENT Inspection Neck: Normal Inspection Respiratory: Lungs Clear Cardiovascular: Regular Rate, Rhythm Gastrointestinal: Non Tender, Soft Extremity: Normal Inspection Neurologic/Psychiatric: Alert, Oriented x3 Skin: Warm/Dry Assessment/Plan Assessment and Plan lady with symptoms of reflux disease. For upper endoscopy. Problems: SMITH ELLIS MD Jun 28, 2017 9:23 am
--- NOTE | 2017-06-28 09:26 | Endo Procedure Record ---
Endo Procedure Report Date of Procedure Last Colonoscopy: Yes (unsure) Jun 28, 2017 Surgeon (s) SMITH ELLIS MD Post Procedure/Op Diagnosis Tortuous esophagus. Minimal distal gastritis Procedure Performed EGD with antral biopsy for H. pylori Description of Procedure Anesthesia Type: Conscious Sedation Specimen(s) collected/removed antral mucosa for H. pylori Description of the Procedure dictation for the procedure: This lady came in for an upper endoscopy to evaluate symptoms of heartburn and intermittent dysphagia. Informed consent was obtained after reviewing the procedure in detail. Description of the procedure: She was placed in left lateral decubitus position and her vital signs were monitored. Conscious sedation was achieved using Versed and fentanyl. The flexible gastroscope was introduced down the esophagus , past the stomach, into the proximal duodenum Findings: Esophagus: Quite tortuous with no esophagitis Stomach: Mild distal gastritis. Biopsy for H. pylori was obtained. Duodenum: Normal She tolerated the procedure well and was taken back to the nursing area in a stable condition. Impression: Symptoms of reflux. No esophagitis identified. Tortuous esophagus , contributing to dysphagia. Will increase proton pump inhibitors to twice a day first. If persistent, 24- hour pH and manometry would be arranged Copies To: ESTHER DANIELLE XAVIER M MD Jun 28, 2017 9:26 am
--- NOTE | 2017-06-28 09:28 | Discharge Inst-Simple/Standard ---
Discharge Inst-Standard Discharge Medications New, Converted or Re-Newed RX: Other Patient Instructions/Follow Up Plan of Care/Instructions/FU: Increase Nexium to twice a day Activity as Tolerated: Yes Discharge Diet: No Restrictions SMITH ELLIS MD Jun 28, 2017 9:28 am
[2017-06-28 09:50] VITALS: BP 152/71
[2017-06-28 10:20] VITALS: BP 154/70
[2017-06-28 11:05] VITALS: BP 154/70
== END 2017-06-28 11:05 | disposition home or self-care (01) ==
LOC: ENDO 07:34
PROVIDERS: ATTEND Surgery
DX: K29.70 Gastritis, unspecified, without bleeding (principal); R13.10 Dysphagia, unspecified; E03.9 Hypothyroidism, unspecified; E11.9 Type 2 diabetes mellitus without complications; F32.9 Major depressive disorder, single episode, unspecified; F41.9 Anxiety disorder, unspecified; Z79.899 Other long term (current) drug therapy; I48.91 Unspecified atrial fibrillation; I25.10 Atherosclerotic heart disease of native coronary artery without angina pectoris; I10 Essential (primary) hypertension; Z88.0 Allergy status to penicillin; Z88.2 Allergy status to sulfonamides; Z88.1 Allergy status to other antibiotic agents; Z88.8 Allergy status to other drugs, medicaments and biological substances

== ENCOUNTER 2017-11-23 14:40 | Emergency (ER) | payer MEDICARE, MEDICAID ==
[~2017-11-23] VITALS: Ht 167.6 cm; Wt 77.1 kg
[~2017-11-23 14:40] MED LIST changes: -AMIO200T2 PO; +AMIO200T4 PO
--- NOTE | 2017-11-23 15:17 | ED GI ---
General Chief Complaint: Abdominal/GI Problems Stated Complaint: CONSTIPATION/FEVER Nursing Triage Note: PT AMBULATED TO RM 3 W/O DIFFICULTY. BROUGHT TO ED BY WORKER. PT STATES SHE FINISHED CIPRO ON NOVEMBER 09 FOR UTI AND HAS BEEN CONSTIPATED EVER SINCE. PT STATES SHE HAS TRIED MAG CITRATE, MIRALAX, HEMORRHOID AND GLYCERIN SUPPOSITORIES AND INCREASING INTAKE OF FRUIT WITH NO RELIEF. PT STATES SHE DOES HAVE A HX OF IBS AND FLUCTUATES BETWEEN DIARRHEA AND CONSTIPATION. PT STATES SHE HAS BEEN RUNNING A FEVER OFF AND ON FOR THE PAST COUPLE OF DAYS BUT HAD NO FEVER AT ASSESSMENT. PT STATES SHE TOOK TYLENOL AT APPROXIMATELY 1415. PT IS CONCERNED SHE MAY HAVE A HEMORRHOID THAT IS CAUSING A BLOCKAGE. PT STATES SHE IS SCHEDULED TO HAVE A PACEMAKER PUT IN ON WEDNESDAY. Sepsis Screen: No Definite Risk Source of Information: Patient, Family Exam Limitations: No Limitations History of Present Illness Date Seen by Provider: Nov 23, 2017 Time Seen by Provider: 15:15 Initial Comments Patient is an 82-year-old female who presents to the emergency room with constipation. She reports that she's been constipated since beginning of November 09 when she finished Cipro for a UTI. She states that she has tried mag citrate, MiraLAX, hemorrhoid and glycerin suppositories and increasing fruit and water intake with no relief. She has had small very formed bowel movements but still feels constipated. She does have a history of irritable bowel syndrome to constipation is not unheard of for her but she does feel it is becoming a problem. Timing/Duration: Getting Worse Severity/Quality: Mild Location: Generalized Abdomen Radiation: No Radiation Modifying Factors: Improves With Defecating Associated Symptoms: Denies Symptoms Allergies and Home Medications Allergies Coded Allergies: Penicillins (Verified Allergy, Unknown, 07/26/07) Shellfish (Verified Allergy, Unknown, 07/26/07) Sulfa (Sulfonamide Antibiotics) (Verified Allergy, Unknown, 07/26/07) azithromycin (Unverified Allergy, Unknown, ITCHING, 08/05/13) cephalexin (Verified Allergy, Unknown, 07/26/07) erythromycin base (Verified Allergy, Unknown, 07/26/07) furosemide (Verified Allergy, Unknown, 07/26/07) nitrofurantoin (Unverified Allergy, Unknown, ITCHING/"THICK TONGUE", ) tetracycline (Verified Allergy, Unknown, 07/26/07) Uncoded Allergies: TAPE (Allergy, Unknown, 07/26/07) Home Medications Acetaminophen 500 Mg Tablet, 500 MG PO BID PRN for PAIN, (Reported) Alprazolam 0.25 Mg Tablet, 0.25 MG PO Q8H PRN for ANXIETY, (Reported) Amiodarone HCl 100 Mg Tablet, 100 MG PO DAILY, (Reported) Amlodipine Besylate 5 Mg Tablet, 5 MG PO DAILY, (Reported) Cyanocobalamin 1,000 Mcg/Ml Inj, 1,000 MCG INJ MONTHLY, (Reported) OF EACH MONTH Docusate Sodium 100 Mg Capsule, 100 MG PO DAILY, (Reported) Esomeprazole Magnesium 20 Mg Capsule.dr, 20 MG PO DAILY, (Reported) Irbesartan 300 Mg Tablet, 300 MG PO DAILY, (Reported) Latanoprost 2.5 Ml Drops, 1 DROP OU HS, (Reported) Levothyroxine Sodium 50 Mcg Tablet, 50 MCG PO DAILY, (Reported) Mag Hydrox/Al Hydrox/Simeth 30 Ml Oral.susp, 1 TBS PO BID PRN for INDIGESTION, ( Reported) Montelukast Sodium 10 Mg Tablet, 10 MG PO DAILY, (Reported) Potassium Chloride 10 Meq Tab.er.prt, 10 MEQ PO DAILY, (Reported) Patient Home Medication List Home Medication List Reviewed: Yes Review of Systems Constitutional: see HPI; No chills, No diaphoresis EENTM: See HPI; No Blurred Vision, No Double Vision Respiratory: See HPI; Denies Cough, Denies Orthopnea Cardiovascular: See HPI; Denies Chest Pain, Denies Edema Gastrointestinal: See HPI, Abdomen Distended, Abdominal Pain, Constipated; Denies Diarrhea, Denies Vomiting Genitourinary: See HPI; Denies Burning, Denies Discharge Musculoskeletal: see HPI; No back pain, No gout, No joint pain Skin: see HPI; No change in color, No change in hair/nails Psychiatric/Neurological: See HPI; Denies Anxiety, Denies Depressed Endocrine: See HPI; Denies Excessive Sweating, Denies Flushing Hematologic/Lymphatic: See HPI; Denies Anemia, Denies Blood Clots All Other Systems Reviewed Negative Unless Noted: Yes Past Didplrq-Qoiofk-Nqmacm Hx Past Med/Social Hx: Reviewed Nursing Past Med/Soc Hx Patient Social History 2nd Hand Smoke Exposure: No Recent Foreign Travel: No Contact w/Someone Who Travel: No Recent Infectious Disease Expo: No Recent Hopitalizations: No Immunizations Up To Date Tetanus Booster (TDap): Less than 5yrs PED Vaccines UTD: No Date of Pneumonia Vaccine: October 03, 2016 Date of Influenza Vaccine: Feb 08, 2012 Seasonal Allergies Seasonal Allergies: Yes Past Medical History Surgeries: Yes (BOWEL RESECTION, LAP NILE) Abdominal, Appendectomy, Cardiac, Gallbladder, Hysterectomy, Rectal, Thyroidectomy, Tonsillectomy Respiratory: Yes Asthma, Sleep Apnea Currently Using CPAP: Yes Currently Using BIPAP: No Cardiac: Yes (PVC'S, ENLARGED HEART) Atrial Fibrillation, Cardiomyopathy, Chronic Edema/Swelling, Coronary Artery Disease, Hypertension Neurological: No 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 Disorders: 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 Genitourinary: Yes Dialysis, UTI-Chronic Gastrointestinal: Yes Gastroesophageal Reflux, Gastrointestinal Bleed, Diverticulosis, Hemorrhoids, Esophagitis, Hiatal Hernia, Ulcer, Irritable Bowel Musculoskeletal: Yes (OSTEOARTHRITIS, FX RIGHT LOWER LEG, DISLOCATED RIGHT SHOULDER) Osteoporosis, Arthritis, Fractures Endocrine: Yes (THYROIDECTOMY; "PREDIABETIC" PER PT ON 02/13/16 --NO MEDICATIONS) Hypothyroidsim, Diabetes, Non-Insulin dep HEENT: Yes Glaucoma Hearing Impairment: Hard of Hearing Cancer: No Psychosocial: Yes Anxiety, Depression Integumentary: No Blood Disorders: Yes (ANEMIA) Adverse Reaction/Blood Tranf: No Family Medical History Reviewed Nursing Family Hx Family history: Hypertension 03 FATHER, Onset:40's - 50 09 BROTHER, Onset:40's - 50 History of drug abuse 03 FATHER, Onset:20's - 25 Stroke 03 FATHER, Onset:60 years & older No Pertinent Family Hx Physical Exam Vital Signs Vital Signs - First Documented 11/23/17 11/23/17 14:45 17:09 Temp 96.8 Pulse 65 Resp 13 B/P (MAP) 169/83 (111) Pulse Ox 99 O2 Delivery Room Air Capillary Refill : Less Than 3 Seconds Height/Weight/BMI Height: 5'6.00" Weight: 170lbs. 0.0oz. 77.143434er; 26.6 BMI Method:Stated General Appearance: WD/WN, no apparent distress HEENT: PERRL/EOMI, normal ENT inspection, TMs normal, pharynx normal Neck: non-tender, full range of motion, supple, normal inspection Respiratory: chest non-tender, lungs clear, normal breath sounds, no respiratory distress, no accessory muscle use Cardiovascular: regular rate, rhythm, no edema, no gallop, no JVD, no murmur Gastrointestinal: normal bowel sounds, non tender, soft, no organomegaly, no pulsatile mass, distended Rectal: normal exam, normal rectal tone, heme negative stool, other (moderate amount of stool noted in the rectum) Extremities: normal range of motion, non-tender, normal inspection, no pedal edema, no calf tenderness Back: normal inspection, no CVA tenderness, no vertebral tenderness Neurologic/Psychiatric: alert, normal mood/affect, oriented x 3 Skin: normal color, warm/dry Lymphatic: no adenopathy Progress/Results/Core Measures Results/Orders My Orders Orders - RUBY WYNN Acute Abd Series (11/23/17 15:21) Na Phos/Na Biphos Enema (Fleet Enema Frank (11/23/17 15:30) Ua Culture If Indicated (11/23/17 16:06) Ondansetron Oral Dissolve Tab (Zofran (11/23/17 16:15) Medications Given in ED Current Medications Medications Dose Ordered Sig/Cora Route Start Time Stop Time Status Last Admin Dose Admin Ondansetron HCl 4 mg ONCE ONCE PO 11/23/17 16:15 11/23/17 16:16 DC 11/23/17 16:13 4 MG Sodium Biphosphate/ Sodium Phosphate 1 ea ONCE ONCE IL 11/23/17 15:30 11/23/17 15:31 DC 11/23/17 15:49 1 EA Vital Signs/I&O 11/23/17 11/23/17 14:45 17:09 Temp 96.8 96.9 Pulse 65 72 Resp 13 14 B/P (MAP) 169/83 (111) 165/80 Pulse Ox 99 O2 Delivery Room Air Room Air Blood Pressure Mean: 111 Progress Progress Note : Time: 16:43 Progress Note Patient was able to have several large bowel movements and reports feeling relief of constipation shortly after the enema. She has an appointment with Dr. Soni tomorrow morning. She was advised to keep this appointment. Diagnostic Imaging Diagonstic Imaging: Xray Plain Films/CT/US/NM/MRI: abdomen Comments NAME: GARFIELD MCKEON Agnieszka [facility] REC#: [id number] PT STATUS: REG ER : 1935 PHYSICIAN: RUBY WYNN ADMIT DATE: 11/23/17/ER Draft Date of Exam:11/23/17 ACUTE ABD SERIES INDICATION: Constipation for 10 days. Patient also reports having a fever for several days. TIME OF EXAM: 3:55 p.m. FINDINGS: The lungs are clear. No free air is detected. There is moderate gaseous distention to the colon. There is a large amount of stool in the right colon. Moderate stool in the left colon and sigmoid is also seen. No significant small bowel distention is identified. No bowel wall thickening or pneumatosis is seen. No pathologic calcifications are identified. There are surgical clips in the right upper quadrant. IMPRESSION: Moderate gaseous distention to the colon with moderate stool suggestive of constipation. No other significant abnormality is seen. Dictated on workstation # [id number] Dict: 11/23/17 1542 Trans: 11/23/17 1549 [id number] Interpreted by: MARY TAPIA MD Electronically signed by: Reviewed: Reviewed by Me Departure Impression Primary Impression: Constipation Qualified Codes: K59.00 - Constipation, unspecified Disposition: 01 HOME, SELF-CARE Condition: Stable/Unchanged Departure-Patient Inst. Decision time for Depature: 16:44 Referrals: ESTHER SONI DO (PCP/Family) Primary Care Physician Patient Instructions: Constipation, Adult (DC) Add. Discharge Instructions: Continue using your home medication for constipation relief as needed. Keep your appointment with Dr. Soni first thing tomorrow morning. Return back to the emergency room for any concerns as needed. All discharge instructions reviewed with patient and/or family. Voiced understanding. RUBY WYNN Nov 23, 2017 15:17
[2017-11-23] MEDS ORDERED: FLEET ENEMA ADULT 1 EA BTL PR ONE (15:30)
--- NOTE | 2017-11-23 15:50 | Diagnostic Imaging Report ---
INDICATION: Constipation for 10 days. Patient also reports having a fever for several days. TIME OF EXAM: 3:55 p.m. FINDINGS: The lungs are clear. No free air is detected. There is moderate gaseous distention to the colon. There is a large amount of stool in the right colon. Moderate stool in the left colon and sigmoid is also seen. No significant small bowel distention is identified. No bowel wall thickening or pneumatosis is seen. No pathologic calcifications are identified. There are surgical clips in the right upper quadrant. IMPRESSION: Moderate gaseous distention to the colon with moderate stool suggestive of constipation. No other significant abnormality is seen. Dictated by: Dictated on workstation # [id number]
[2017-11-23] MEDS ORDERED: ONDANSETRON 4 MG (ZOFRAN) ORAL DISSOLVE TAB PO ONE (16:15)
[2017-11-23 17:09] VITALS: BP 165/80
== END 2017-11-23 17:09 | disposition home or self-care (01) ==
LOC: EDUNIT# 14:40 → ER 14:42
DX: K59.00 Constipation, unspecified (principal); J45.909 Unspecified asthma, uncomplicated; I48.91 Unspecified atrial fibrillation; I25.10 Atherosclerotic heart disease of native coronary artery without angina pectoris; I10 Essential (primary) hypertension; K21.0 Gastro-esophageal reflux disease with esophagitis; M81.0 Age-related osteoporosis without current pathological fracture; E03.9 Hypothyroidism, unspecified; E11.9 Type 2 diabetes mellitus without complications; F41.9 Anxiety disorder, unspecified; F32.9 Major depressive disorder, single episode, unspecified; Z99.2 Dependence on renal dialysis; Z87.19 Personal history of other diseases of the digestive system; Z88.0 Allergy status to penicillin; Z88.2 Allergy status to sulfonamides; Z88.1 Allergy status to other antibiotic agents; Z91.013 Allergy to seafood; Z88.8 Allergy status to other drugs, medicaments and biological substances; Z90.49 Acquired absence of other specified parts of digestive tract; Z90.710 Acquired absence of both cervix and uterus; Z90.89 Acquired absence of other organs; Z95.0 Presence of cardiac pacemaker
CPT/HCPCS: 74022

== ENCOUNTER → 2017-11-24 | Outpatient (CLI) | payer MEDICARE, MEDICAID ==
[~2017-11-24] MED LIST changes: +CLIN300C11 PO; +LORA10TA7 PO; +POLY17PO6 PO; +TEMA15CA PO; +TRIM100T PO
== END ==
LOC: RT 11:40
PROVIDERS: ATTEND Internal Medicine
DX: Z51.81 Encounter for therapeutic drug level monitoring (principal); Z79.899 Other long term (current) drug therapy

== ENCOUNTER 2017-11-25 08:05 | Day surgery (SDC) | payer MEDICARE, MEDICAID ==
[2017-11-25] VITALS (14 sets, daily range): BP systolic 88–159; BP diastolic 58–84
[~2017-11-25] VITALS: Ht 168.9 cm; Wt 77.1 kg
[~2017-11-25 08:05] MED LIST changes: -CLIN300C11 PO; -LORA10TA7 PO; -POLY17PO6 PO; -TEMA15CA PO; -TRIM100T PO
--- OUTSIDE RECORDS SUMMARY | 2017-11-25 08:10 | XMS REPORT | Encounter Summary ---
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 Role Phone PCP Unavailable Reason for Visit * Reason Comments New Patient PAF (paroxysmal atrial fibrillation) ([facility]) [I48.0] Encounter Details Date Type Department Care Team Description 10/21/2017 Patient Profile [facility] Cardiology Caitie Trujillo New Patient (PAF [address] [place] (paroxysmal atrial Nimesh G600 fibrillation) ([facility]) [place] [address] [I48.0]) [phone] Social History Tobacco Use Types Packs/Day Years Used Date Never Smoker Smokeless Tobacco: Never Used Alcohol Use Drinks/Week oz/Week Comments No Sex Assigned at Date Recorded Not on file as of this encounter Progress Notes * Terry Trujilloida - 10/21/2017 5:34 PM CDT Pt said 2pm device check will not work. She wants to cooridnate it to be on the day of her surgery. 10/21/17 * RyTerry craneida - 10/21/2017 5:34 PM CDT Pt has Medtronic LINQ Device * Terry Trujilloida - 10/21/2017 5:34 PM CDT Spoke to patient. Pt could not hear me. She said she is hard of hearing and to call back when her home health is available. 10/21/17 in this encounter Plan of Treatment Not on fileas of this encounter Results * DEVICE EVALUATION - ILR (10/29/2017 2:53 PM) Component Value Ref Range Generator Ophthalmic Lens Inspector Medtronic Generator Model # REVEAL LINQ [id number] Generator Serial # [id number] Generator Implnat Date 04-Mar-2016 Generator Location Precordial Device Implanted By DR. HOLLINGSWORTH [phone] ILR Battery Status good ILR Symptom Lifetime 0 Events as of ILR Symptom Duration 4 7.5 mins each ILR Tachy Lifetime Events 0 as of ILR Tachy Rate 150 ILR Tachy Duration 16 ILR Pause Lifetime Events 7 as of ILR Pause Duration 3 ILR Toby Lifetime Events 0 as of ILR Toby Rate 30 ILR Toby Duration 4 ILR AT Events Since Last n/a Interrogation ILR AT Lifetime Events as n/a of ILR AF Lifetime Events as 21 of ILR AF Rate AF only ILR AF Duration all episodes ILR Percent Time in AT/AF <0.1 Lifetime of Events as of ILR Presenting ECG Strip SB 40's w/PACs EP Device Followed by DR. HOLLINGSWORTH [phone] Name ILR Lifetime Events as of 10/29/17 Datetion Device [place] [facility] Transmitter Compatible Known Diagnosed AFib Yes On Anticoagulation No On AntiCoag Date high risk (watchman work-up) Specimen Performing Laboratory OTHER OUTSIDE LAB Narrative [facility] ILR check (please see attached PDF for >detail and EGMs) [10/29/2017 2:54:18 PM - JADON CARVAJAL] Seeing Dr Webb today for watchman consult today 13 AF since last carelink session on 02/15/2017 Longest AF: 08/31/17 @ 0734 for 2hrs 20min max V rate 140bpm median V rate 102bpm. Last AF on 10/11/17 @ 1850 max V rate 78bpm medan V rate 50bpm 2 pause episodes since last carelink session on 02/15/2017 On 07/14 @ 0304 for 3sec and @ 0710 for 3sec: both appear to show SB w/undersensed PVCs Full report and cardiac compass uploaded for more detailed review as needed. Routed to Dr Webb for review/co-sign. in this encounter Visit Diagnoses Diagnosis PAF (paroxysmal atrial fibrillation) ([facility]) - Primary Atrial fibrillation Cardiac device in situ Unspecified cardiac device in situ Hypertension, unspecified type Hyperlipidemia, unspecified hyperlipidemia type Transient cerebral ischemia, unspecified type SSS (sick sinus syndrome) ([facility]) Sinoatrial node dysfunction
--- OUTSIDE RECORDS SUMMARY | 2017-11-25 08:10 | XMS REPORT | Encounter Summary ---
Author Author [facility] Organization [facility] Address Unknown Phone Unavailable Care Team Providers Care Tile Molder Hand Name Role Phone Martinez Soni MD PCP Reason for Referral * Status Reason Specialty Diagnoses / Referred By Referred To Procedures Contact Contact New Request Diagnoses Lacne Webb, PAF (paroxysmal MD atrial [address] fibrillation) [facility] ([facility]) [place] [address] rocedures Phone: FOLLOW UP PRN [phone] Reason for Visit * Reason Comments Atrial fibrillation f/u * Consult, Test & Treat (Routine) Status Reason Specialty Diagnoses / Referred By Referred To Procedures Contact Contact New Request Specialty Cardiology Diagnoses Lukas Bland [facility] PAF (paroxysmal MD Ashley [address] Required atrial [address] [place] fibrillation) [address] ([facility]) [place] [address] Phone: Fax: Encounter Details Date Type Department Care Team Description 10/29/2017 Office Visit [facility] Cardiology Lukas Bland MD Atrial fibrillation (f/u) [address] [place] [address] [place] [address] [place] [address] [phone] Lance Adame MD [address] [place] [address] [phone] Social History Tobacco Use Types Packs/Day Years Used Date Never Smoker Smokeless Tobacco: Never Used Alcohol Use Drinks/Week oz/Week Comments No Sex Assigned at Date Recorded Not on file as of this encounter Last Filed Vital Signs Vital Sign Reading Time Taken Blood Pressure 122/72 10/29/2017 2:56 PM CDT Pulse 54 10/29/2017 2:56 PM CDT Temperature - - Respiratory Rate - - Oxygen Saturation - - Inhaled Oxygen - - Concentration Weight 78.4 kg (172 lb 12.8 oz) 10/29/2017 2:56 PM CDT Height 167.6 cm (5' 6") 10/29/2017 2:56 PM CDT Body Mass Index 27.89 10/29/2017 2:56 PM CDT in this encounter Instructions * Patient Instructions - Swetha Lugo RN - 10/29/2017 2:45 PM CDT -Acceptable to continue amiodarone for now -Would recommend Watchman if can tolerate Warfarin anticoagulation for at least a month pre-op and would need for 6 weeks post-op -If cannot tolerate warfarin, could have her seen by one of my surgical colleagues for consideration of surgical left atrial appendage closure -May have chronotropic incompetence given HR trend and benefit from pacemaker -Please let us know what you decide on the above after discussing with Dr. Tamayo -Follow-up: if tolerates Wafarin please let us know and we'll arrange consultation with Dr. Capps for consideration of Watchman device Discussed with the patient potential multi-organ toxicities from amiodarone including but not limited to: pulmonary (pulmonary fibrosis), hepatic, thyroid, skin, eye. Outpatient Amiodarone Monitoring: The following will need to be arranged... Every 6 months: TSH Liver function tests (Alkaline phosphatase, AST/ALT, and total bilirubin) Annually: Eye exam Chest X-Ray PFTs (Pulmonary function tests) Please call us with any questions or concerns at [phone]. in this encounter Progress Notes * Lance Webb MD - 10/29/2017 2:45 PM CDT Formatting of this note may be different from the original. Date of Service: 10/29/2017 Aga aButista is a 82 y.o. female. History of Present Illness: See Medical History/Course Below Ms. Aga Bautista is a very pleasant 82-year-old woman referred by Lukas Bland MD and Dr. Tamayo for consideration of left atrial appendage closure. She lives in [place], [place]. 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 She lives in an apartment and is accompanied by an aide. Her has been in a correction facility with a recent pneumonia and severe Alzheimer's disease. She reports a several-year history of atrial fibrillation. She had a possible TIA with drooping of the mouth, by report, prior to February 2016. She then underwent ILR implantation. She was diagnosed with atrial fibrillation and was started on amiodarone initially at 200 mg daily. There were pauses up to 6 or 7 seconds, by report, in May, but review of the current pauses all show under sensing and not true pauses. I suspect this could have been the case in May. Her amiodarone dose may have been decreased at that time. She went on to be seen by Dr. Bland on October 06. He decreased the amiodarone from 200 to 100 mg daily and recommended left atrial appendage closure. She presents today for consideration of this. Complicating matters is that she has had a history of rectal bleeding. Her first episodes were, by report, in 2015 or 2017 with apixaban. She had to change pads very frequently, as if she had bad periods all the time. In late 2016, she had worsened bleeding on Xarelto as well, and had to undergo an internal hemorrhoidectomy to stop the bleeding, as well as transfusions. She has not been on anticoagulation since that time. She has shortness of breath and occasionally has lightheadedness. Occasionally she has orthopnea, but she denies paroxysmal nocturnal dyspnea or lower extremity edema. She reports compliance with her CPAP. ([id number]) I reviewed and interpreted about 20 pages of outside documents. Impression: # Paroxysmal atrial fibrillation # s/p ILR Follows with Dr. Tamayo and Dr. Bland -[id number] of 6+ (age2, woman, HTN, TIA2) -- prior Xarelto (rectal bleeding requiring transfusion/surgery), intolerant of apixaban (bleeding) -AAD: amiodarone 100 daily -Sx: "pounding", -DAMASO: on CPAP -EtOH: denies -02/14/16 ECHO: normal LV size and systolic function with EF 60%. Mild MR and TR. Estimated PAP 25 mmHg. -03/04/16 Lexiscan Stress Test: no ischemia or infarction on SPECT images. Normal LV size with normal contractility. Calculated EF 78%. -03/04/16 ILR implant (REVEAL LINQ) -10/06/17 Dr. Bland (EP): Decreased amiodarone from 200 to 100 mg daily. Recommended LING closure. -10/29/17 Dr. Webb: reports 5-6 year history, <0.1% burden, longest 3 hours and 6 minutes on 12/27/2016. Most recent episode greater than 10 minutes was on September 05 lasting 54 minutes with median ventricular rate 120 bpm. August 31 she had an episode lasting 2 hours and 20 minutes with median ventricular rate 102 bpm. Sinus bradycardia much of time with vast majority of sinus rates less than 70 bpm and majority between 40 and 60 bpm. # Systolic murmur, suspected mild-moderate # TIA -Prior to February 2016: drooping mouth by report # Possible sinus node dysfunction -06/05/16: Reported 7-second pause. I am not certain it is a true pause as many due to undersensing # Rectal bleeding ~0876-1602: Bleeding on apixaban, bled through pads -Late 2016: internal hemorrhoidectomy to stop after bleeding on Xarelto, required transfusion # Obesity s/p gastric banding surgery (2005) # Hypertension # Hyperlipidemia # Hypothyroidism on replacement # Asthma # GERD Personally reviewed device interrogation as documented above. She has paroxysmal atrial fibrillation. We discussed symptom management and stroke risk. Her risk for stroke is markedly elevated especially if her TIA was true. Given this, I recommend treatment to lower the risk of stroke. She has been intolerant to anticoagulation previously due to rectal bleeding. It may be that this is better now that she has had hemorrhoid surgery. Alternatively, it could continue to be a problem. As she is unable to tolerate long-term anticoagulation, we should consider left atrial appendage closure. This can be done with a WATCHMAN device, or potentially surgically. The advantage of the WATCHMAN device would be the less invasive procedure, but this would require ideally at least a month of anticoagulation before implant as well as 6 weeks after implant. This would be important to lower the risk of device-related thrombosis that has been seen at increased risk with people on antiplatelet therapies. We will go ahead and arrange for her to start Coumadin locally, and if she is able to tolerate this arrange for her to come back and see Dr. Capps for consideration of left atrial appendage closure. If she is unable to tolerate anticoagulation, we can consider surgical left atrial appendage closure by one of my cardiothoracic colleagues. Please let us know if she would like to proceed with this evaluation. She continues on a rhythm control strategy and has had a low burden of atrial fibrillation. She continues on amiodarone 100 mg daily. There is a report of possible pauses dating back to May 2016. Her most recent pauses are consistent with under sensing. These older episodes should be reviewed closely as this may have been the cause of the pauses back then as well. ([id number]) Her heart rates are predominantly between 40 and 60 bpm. She has fatigue. She could potentially benefit from a pacemaker. It is a pleasure sharing in the care of this patient. I have contacted Dr. Tamayo, and would be happy to speak with him or Dr. Bland regarding her care. No further followup is scheduled at the present time. Plan: -Acceptable to continue amiodarone for now -Would recommend Watchman if can tolerate Warfarin anticoagulation for at least a month pre-op and would need for 6 weeks post-op -If cannot tolerate warfarin, could have her seen by one of my surgical colleagues for consideration of surgical left atrial appendage closure -May have chronotropic incompetence given HR trend and benefit from pacemaker -Please let us know what you decide on the above after discussing with Dr. Tamayo and/or Dr. Bland -Follow-up: if tolerates Wafarin please let us know and we'll arrange consultation with Dr. Capps for consideration of Watchman device Discussed with the patient potential multi-organ toxicities from amiodarone including but not limited to: pulmonary (pulmonary fibrosis), hepatic, thyroid, skin, eye. Outpatient Amiodarone Monitoring: The following will need to be arranged... Every 6 months: TSH Liver function tests (Alkaline phosphatase, AST/ALT, and total bilirubin) Annually: Eye exam Chest X-Ray PFTs (Pulmonary function tests) Please call us with any questions or concerns at [phone]. Medication List: acetaminophen (TYLENOL) 500 mg tablet Take 500 mg by mouth every 6 hours as needed for Pain. Max of 4,000 mg of acetaminophen in 24 hours. ALPRAZolam (XANAX) 0.25 mg tablet Take 0.25 mg by mouth at bedtime as needed for Anxiety. amiodarone (PACERONE) 100 mg tablet Take 100 mg by mouth daily. amLODIPine (NORVASC) 5 mg tablet Take 5 mg by mouth daily. cyanocobalamin (VITAMIN B-12) 1,000 mcg tablet Take 1,000 mcg by mouth daily. docusate (COLACE) 100 mg capsule Take 100 mg by mouth as Needed for Constipation. fexofenadine(+) (VIRY) 180 mg tablet Take 180 mg by mouth daily as needed. irbesartan (AVAPRO) 300 mg tablet Take 300 mg by mouth at bedtime daily. LATANOPROST OP Place 1 drop into or around eye(s). levothyroxine (SYNTHROID) 50 mcg tablet Take 50 mcg by mouth daily 30 minutes before breakfast. montelukast (SINGULAIR) 10 mg tablet Take 10 mg by mouth at bedtime daily. omeprazole DR(+) (PRILOSEC) 20 mg capsule Take 20 mg by mouth daily before breakfast. potassium chloride SR (K-DUR) 10 mEq tablet Take 10 mEq by mouth daily. Take with a meal and a full glass of water. trimethoprim (TRIMPEX) 100 mg tablet Take 100 mg by mouth twice daily. Social History: Social History Substance Use Topics Smoking status: Never Smoker Smokeless tobacco: Never Used Alcohol use No Family History: family history includes Mental Illness in her mother; Stroke in her father. Pertinent Studies: ECG (personal interpretation) ECG from today shows sinus rhythm with possible old inferior ND, cannot rule out prior anteroseptal ND, and possible left anterior fascicular block Vitals: 10/29/17 1456 BP: 122/72 Pulse: 54 Weight: 78.4 kg (172 lb 12.8 oz) Height: 1.676 m (5' 6") Body mass index is 27.89 kg/m. Past Medical History Patient Active Problem List Diagnosis Date Noted Rectal bleeding 10/29/2017 PAF (paroxysmal atrial fibrillation) (HCC) 10/22/2017 02/14/16 ECHO: normal LV size and systolic function with EF 60%. Mild MR and TR. Estimated PAP 25 mmHg. 03/04/16 Lexiscan Stress Test: no ischemia or infarction on SPECT images. Normal LV size with normal contractility. Calculated EF 78%. 03/04/16 Reveal device implanted Cardiac device in situ 10/22/2017 HTN (hypertension) 10/22/2017 HLD (hyperlipidemia) 10/22/2017 TIA (transient ischemic attack) 10/22/2017 SSS (sick sinus syndrome) ([facility]) 10/22/2017 Review of Systems Constitution: Positive for weakness. HENT: Positive for congestion. Eyes: Negative. Cardiovascular: Positive for claudication, dyspnea on exertion, irregular heartbeat, leg swelling, orthopnea and palpitations. Respiratory: Positive for cough and shortness of breath. Hematologic/Lymphatic: Bruises/bleeds easily. Skin: Negative. Musculoskeletal: Positive for arthritis, joint pain, muscle cramps and neck pain. Gastrointestinal: Positive for bloating, abdominal pain, change in bowel habit, bowel incontinence, constipation, dysphagia, flatus and heartburn. Genitourinary: Positive for incomplete emptying and urgency. Neurological: Positive for dizziness, light-headedness and numbness. Psychiatric/Behavioral: The patient has insomnia and is nervous/anxious. Allergic/Immunologic: Positive for persistent infections. Physical Exam BP 122/72 (BP Source: Arm, Left Upper) | Pulse 54 | Ht 1.676 m (5' 6") | Wt 78.4 kg (172 lb 12.8 oz) | BMI 27.89 kg/m GENERAL APPEARANCE: Patient in no apparent distress. PSYCH: Appropriate NEURO: Alert and conversant VESSELS: JVD is difficult to appreciate. ENT: Moist mucous membranes CARDIOVASCULAR: No parasternal lift Regular rhythm and normal rate. S1 and S2 present. +3/6 early-mid peaking BIJAN. There is no pericardial rub GI: Abdomen obese No appreciable hepatomegaly in the upright position RESPIRATORY: Clear breath sounds bilaterally EXTREMITIES: There was no lower extremity edema SKIN: No rash on chest GAIT: Able to ambulate to the exam table Problems Addressed Today Encounter Diagnoses Name Primary? PAF (paroxysmal atrial fibrillation) ([facility]) Yes Rectal bleeding Hypertension, unspecified type in this encounter Plan of Treatment Name Priority Associated Diagnoses Order Schedule ECG 12-LEAD Routine PAF (paroxysmal atrial Ordered: 10/29/2017 fibrillation) ([facility]) as of this encounter Procedures Procedure Name Priority Date/Time Associated Diagnosis Comments ECG-SCAN 10/30/2017 Results for this 4:00 PM CDT procedure are in the results section. in this encounter Results * ECG-SCAN (10/30/2017 4:00 PM) Narrative Ordered by an unspecified provider. in this encounter Visit Diagnoses Diagnosis PAF (paroxysmal atrial fibrillation) (HCC) - Primary Atrial fibrillation Rectal bleeding Hemorrhage of rectum and anus Hypertension, unspecified type
--- OUTSIDE RECORDS SUMMARY | 2017-11-25 08:10 | XMS REPORT | Clinical Summary ---
Author Author [facility] Organization [facility] Address Unknown Phone Unavailable Care Team Providers Care Reset Merchandiser Name Role Phone Martinez Soni MD PCP Source Comments Some departments are not documenting in the electronic medical record. If you do not see the information that you expected, contact Release of Information in the Health Information Management department at [phone] for further assistance in locating additional records.[facility] Allergies Active Allergy Reactions Severity Noted Date Comments Milo Inhibitors UNKNOWN Low 10/21/2017 Adhesive Tape (Rosins) UNKNOWN Low 10/21/2017 Arb-Angiotensin Receptor UNKNOWN Low 10/21/2017 Antagonist Beta-Blockers UNKNOWN Low 10/21/2017 (Beta-Adrenergic Blocking Agts) Bumetanide UNKNOWN Low 10/21/2017 Hydrochlorothiazide STOMACH UPSET Low 10/21/2017 Cephalexin UNKNOWN Low 10/21/2017 Furosemide UNKNOWN Low 10/21/2017 Penicillins UNKNOWN Low 10/21/2017 Seafood UNKNOWN Low 10/21/2017 Sulfa (Sulfonamide UNKNOWN Low 10/21/2017 Antibiotics) Tetracycline UNKNOWN Low 10/21/2017 Azithromycin UNKNOWN Low 10/21/2017 Current Medications Prescription Sig. Disp. Refills Start End Date Status Date amLODIPine (NORVASC) 5 mg Take 5 mg by mouth daily. Active tablet irbesartan (AVAPRO) 300 Take 300 mg by mouth at Active mg tablet bedtime daily. docusate (COLACE) 100 mg Take 100 mg by mouth as Active capsule Needed for Constipation. montelukast (SINGULAIR) Take 10 mg by mouth at Active 10 mg tablet bedtime daily. levothyroxine (SYNTHROID) Take 50 mcg by mouth Active 50 mcg tablet daily 30 minutes before breakfast. acetaminophen (TYLENOL) Take 500 mg by mouth Active 500 mg tablet every 6 hours as needed for Pain. Max of 4,000 mg of acetaminophen in 24 hours. cyanocobalamin (VITAMIN Take 1,000 mcg by mouth Active B-12) 1,000 mcg tablet daily. ALPRAZolam (XANAX) 0.25 Take 0.25 mg by mouth at Active mg tablet bedtime as needed for Anxiety. amiodarone (PACERONE) 100 Take 100 mg by mouth Active mg tablet daily. fexofenadine(+) (VIRY) Take 180 mg by mouth Active 180 mg tablet daily as needed. LATANOPROST OP Place 1 drop into or Active around eye(s). omeprazole DR(+) Take 20 mg by mouth daily Active (PRILOSEC) 20 mg capsule before breakfast. trimethoprim (TRIMPEX) Take 100 mg by mouth Active 100 mg tablet twice daily. potassium chloride SR Take 10 mEq by mouth Active (K-DUR) 10 mEq tablet daily. Take with a meal and a full glass of water. Active Problems Problem Noted Date Rectal bleeding 10/29/2017 PAF (paroxysmal atrial fibrillation) ([facility]) 10/22/2017 Overview: 02/14/16 ECHO: normal LV size and systolic function with EF 60%. Mild MR and TR. Estimated PAP 25 mmHg. 03/04/16 Lexiscan Stress Test: no ischemia or infarction on SPECT images. Normal LV size with normal contractility. Calculated EF 78%. 03/04/16 Reveal device implanted Cardiac device in situ 10/22/2017 HTN (hypertension) 10/22/2017 HLD (hyperlipidemia) 10/22/2017 TIA (transient ischemic attack) 10/22/2017 SSS (sick sinus syndrome) ([facility]) 10/22/2017 Encounters Date Type Specialty Care Team Description 10/29/2017 Office Visit Cardiology Lukas Bland MD Atrial fibrillation (f/u) Lance Webb MD 10/29/2017 Hospital Cardiology Lance Webb MD Encounter 10/21/2017 Patient Profile Cardiology Caitie Trujillo New Patient ( PAF (paroxysmal atrial fibrillation) ([facility]) [I48.0]) 10/13/2017 Orders Only Cardiology Nelli Tamayo PAF (paroxysmal atrial fibrillation) ([facility]) (Primary Dx) from Last 3 Months Family History Medical History Relation Name Comments Stroke Father Mental Illness Mother Relation Name Status Comments Father (Age 79) Mother (Age 64ish) Social History Tobacco Use Types Packs/Day Years Used Date Never Smoker Smokeless Tobacco: Never Used Alcohol Use Drinks/Week oz/Week Comments No Sex Assigned at Date Recorded Not on file Last Filed Vital Signs Vital Sign Reading [...] Mass Index 27.89 10/29/2017 2:56 PM CDT Plan of Treatment Health Maintenance Due Date Last Done Comments PHYSICAL (COMPREHENSIVE) 01/02/1942 EXAM PERTUSSIS VACCINE 01/02/1948 TETANUS VACCINE 1954 SHINGLES RECOMBINANT 1987 VACCINE (1 of 2) OSTEOPOROSIS SCREENING 2002 PNEUMONIA (PCV13/PPSV23) 2002 VACCINES (1 of 2 - PCV13) INFLUENZA VACCINE 02/07/2018 02/14/2016 Procedures Procedure Name Priority Date/Time Associated Diagnosis Comments ECG-SCAN 10/30/2017 Results for this 4:00 PM CDT procedure are in the results section. from Last 3 Months Results * ECG-SCAN (10/30/2017 4:00 PM) Narrative Ordered by an unspecified provider. * DEVICE EVALUATION - ILR (10/29/2017 2:53 PM) Component Value Ref Range Generator Facilities Project Manager [employer] Generator Model # REVEAL LINQ [id number] Generator Serial # [id number] Generator Implnat Date 04-Mar-2016 Generator Location Precordial Device Implanted By DR. HOLLINGSWORTH [phone] ILR Battery Status good ILR Symptom Lifetime [...] w/PACs EP Device Followed by DR. HOLLINGSWORTH [phone] Name ILR Lifetime Events as of 10/29/17 Datetion Device [place] Carelink Express Transmitter Compatible Known Diagnosed AFib Yes On Anticoagulation No On AntiCoag Date high risk (watchman work-up) Specimen Performing Laboratory OTHER OUTSIDE LAB Narrative [facility] ILR check (please see attached PDF [...] needed. Routed to Dr Webb for review/co-sign. from Last 3 Months
--- OUTSIDE RECORDS SUMMARY | 2017-11-25 08:10 | XMS REPORT | Encounter Summary ---
Author Author [facility] Organization [facility] Address Unknown Phone Unavailable Care Team Providers Care Contract Programmer Name Role Phone Martinez Soni MD PCP Encounter Details Date Type Department Care Team Description 10/29/2017 [facility] Cardiology Lance Webb MD Encounter [address] [place] [address] [place] [address] [place] [address] [phone] Social History Tobacco Use Types Packs/Day Years Used Date Never Smoker Smokeless Tobacco: Never Used Alcohol Use Drinks/Week oz/Week Comments No Sex Assigned at Date Recorded Not on file as of this encounter Medications at Time of Discharge Medication Sig. Disp. Refills Start Date End Date acetaminophen (TYLENOL) Take 500 mg by mouth 500 mg tablet every 6 hours as needed for Pain. Max of 4,000 mg of acetaminophen in 24 hours. ALPRAZolam (XANAX) 0.25 Take 0.25 mg by mouth at mg tablet bedtime as needed for Anxiety. amiodarone (PACERONE) 100 Take 100 mg by mouth mg tablet daily. amLODIPine (NORVASC) 5 mg Take 5 mg by mouth daily. tablet cyanocobalamin (VITAMIN Take 1,000 mcg by mouth B-12) 1,000 mcg tablet daily. docusate (COLACE) 100 mg Take 100 mg by mouth as capsule Needed for Constipation. fexofenadine(+) (VIRY) Take 180 mg by mouth 180 mg tablet daily as needed. irbesartan (AVAPRO) 300 Take 300 mg by mouth at mg tablet bedtime daily. LATANOPROST OP Place 1 drop into or around eye(s). levothyroxine (SYNTHROID) Take 50 mcg by mouth 50 mcg tablet daily 30 minutes before breakfast. montelukast (SINGULAIR) Take 10 mg by mouth at 10 mg tablet bedtime daily. omeprazole DR(+) Take 20 mg by mouth daily (PRILOSEC) 20 mg capsule before breakfast. potassium chloride SR Take 10 mEq by mouth (K-DUR) 10 mEq tablet daily. Take with a meal and a full glass of water. trimethoprim (TRIMPEX) Take 100 mg by mouth 100 mg tablet twice daily. as of this encounter Plan of Treatment Not on fileas of this encounter Results * DEVICE EVALUATION - ILR (10/29/2017 2:53 PM) Component Value Ref Range Generator Parachute Cushion Installer CAN [employer] Generator Model # REVEAL LINQ [id number] Generator Serial # [id number] Generator Implnat Date 04-Mar-2016 Generator Location Precordial Device Implanted By DR. HOLLINGSWORTH [phone] ILR Battery Status good ILR Symptom Lifetime [...] w/PACs EP Device Followed by DR. HOLLINGSWORTH [phone] Name ILR Lifetime Events as of 10/29/17 Datetion Device [place] Carelink Express Transmitter Compatible Known Diagnosed AFib Yes On Anticoagulation No On AntiCoag Date high risk (watchman work-up) Specimen Performing Laboratory OTHER OUTSIDE LAB Narrative [facility] ILR check (please see attached [...] Diagnoses Diagnosis PAF (paroxysmal atrial fibrillation) (HCC) Atrial fibrillation
--- OUTSIDE RECORDS SUMMARY | 2017-11-25 08:10 | XMS REPORT | Encounter Summary ---
Author Author [facility] Organization [facility] Address Unknown Phone Unavailable Care Team Providers Care Information Security Engineer Name Role Phone PCP Unavailable Reason for Referral * Consult, Test & Treat (Routine) Status Reason Specialty Diagnoses / Referred By Referred To Procedures Contact Contact New Request Specialty Cardiology Diagnoses [facility], Located Within [facility] Services PAF (paroxysmal R, [address] Required atrial [address] [place] fibrillation) [address] (HCC) [place] [id number] Phone: Fax: Encounter Details Date Type Department Care Team Description 10/13/2017 Orders Only MAC-REFERRAL Nelli Tamayo PAF (paroxysmal atrial fibrillation) ([facility]) (Primary Dx) Social History Tobacco Use Types Packs/Day Years Used Date Never Assessed Sex Assigned at Date Recorded Not on file as of this encounter Plan of Treatment Name Priority Associated Diagnoses Order Schedule AMB REFERRAL TO ADULT CARDIOLOGY Routine PAF (paroxysmal atrial Ordered : 10/13/2017 fibrillation) ([facility]) as of this encounter Visit Diagnoses Diagnosis PAF (paroxysmal atrial fibrillation) ([facility]) - Primary Atrial fibrillation
[2017-11-25] MEDS ORDERED: HEParin (CATH LAB) 1,000 ML IV ONE (08:17)
[2017-11-25] MEDS ORDERED: LIDOCAINE 1% INJ 20 ML 20 ML VIAL ONE (08:17)
[2017-11-25] MEDS ORDERED: NS IV 1000 ML 1,000 ML ONE (08:17)
--- OUTSIDE RECORDS SUMMARY | 2017-11-25 08:21 | XMS REPORT | Continuity of Care Document ---
Author Author [facility] Organization [facility] Address Unknown Phone Unavailable Allergies Active Description Code Type Severity Reaction Onset Reported/Identified Relationship to Patient Clinical Status Yes cephalexin [id number] Drug Allergy Unknown N/A 07/26/2007 Yes erythromycin base [id number] Drug Allergy Unknown N/A 07/26/2007 Yes furosemide [id number] Drug Allergy Unknown N/A 07/26/2007 Yes Penicillins [id number] Drug Allergy Unknown N/A 07/26/2007 Yes Shellfish [id number] Drug Allergy Unknown N/A 07/26/2007 Yes Sulfa (Sulfonamide Antibiotics) [id number] Drug Allergy Unknown N/A 2007 Yes TAPE TAPE Unknown N/A 07/26/2007 Yes tetracycline [id number] Drug Allergy Unknown N/A 07/26/2007 Yes ciprofloxacin [id number] Drug Allergy Unknown N/A 02/01/2009 Yes azithromycin [id number] Drug Allergy Unknown ITCHING 08/05/2013 Yes nitrofurantoin [id number] Drug Allergy Unknown ITCHING/"THICK 08/05/2013 Medications There [...] ELLIS MD Ot 414.01 CORONARY ATHEROSCLEROSIS OF [place] CORON 01/02/2013 SMITH ELLIS MD Ot 427.31 [...] LEE MD Ot 414.01 CORONARY ATHEROSCLEROSIS OF [place] CORON 04/05/2013 MINDI LEE MD Ot 427.31 [...] Ot V58.61 ANTICOAGULANTS,LT,CURRENT USE 08/05/2013 ZENIA MEDINA CIRCLE SHEAR OPERATOR Ot 401.9 HYPERTENSION NOS 08/05/2013 ZENIA MEDINA CIRCLE SHEAR OPERATOR Ot 564.00 UNSPEC CONSTIPATION 08/05/2013 ZENIA MEDINA CIRCLE SHEAR OPERATOR Ot 787.20 DYSPHAGIA, UNSPECIFIED 08/07/2013 SMITH ELLIS MD Ot 244.9 HYPOTHYROIDISM NOS 08/07/2013 SMITH ELLIS MD Ot 285.9 ANEMIA NOS 08/07/2013 CALEB GARIBAY, SMITH Timmons Ot 401.9 HYPERTENSION NOS 08/07/2013 CALEB GARIBAY, SMITH Timmons Ot 532.90 DUODENAL ULCER NOS 08/07/2013 SMITH ELLIS MD Ot 535.40 OTH SPECIFIED GASTRITIS,W/O MENTION OF H 08/07/2013 SMITH ELLIS MD Ot 578.9 GASTROINTEST HEMORR NOS 06/19/2014 ZENIA MEDINA CIRCLE SHEAR OPERATOR Ot 473.9 CHRONIC SINUSITIS NOS 06/19/2014 ZENIA MEDINA CIRCLE SHEAR OPERATOR Ot 780.79 OTH MALAISE FATIGUE 06/19/2014 ZENIA MEDINA CIRCLE SHEAR OPERATOR Ot 787.02 NAUSEA ALONE 06/19/2014 ZENIA MEDINA CIRCLE SHEAR OPERATOR Ot V58.69 OTH MED,LT,CURRENT USE 07/30/2014 HERMANN [...] GARIBAY, JOSEKI Ot 427.31 08/20/2014 ARISTIDES GARIBAY, ALAINA Ot [...] ESTHER De Los Santos Ot E928.9 05/19/2015 AJNIE GARIBAY, CARLINE Kennedy Ot I48.91 UNSPECIFIED ATRIAL [...] SYNDROME 03/10/2016 BEBETO HOLLINGSWORTH MD Ot Z79.01 DOLL REPAIRER (CURRENT) USE OF ANTICOAGULANT 03/10/2016 BEBETO HOLLINGSWORTH MD Ot Z79.899 OTHER RESIDENTIAL (CURRENT) DRUG THERAPY 03/10/2016 BEBETO HOLLINGSWORTH MD [...] SYNDROME 03/27/2016 BEBETO HOLLINGSWORTH MD Ot Z79.01 DOLL REPAIRER (CURRENT) USE OF ANTICOAGULANT 03/27/2016 BEBETO HOLLINGSWORTH MD Ot Z79.899 OTHER DOLL REPAIRER (CURRENT) DRUG THERAPY 03/27/2016 BEBETO HOLLINGSWORTH MD, [...] SYNDROME 04/09/2016 BEBETO HOLLINGSWORTH MD, Ot Z79.01 RESIDENTIAL (CURRENT) USE OF ANTICOAGULANT 04/09/2016 BEBETO HOLLINGSWORTH MD, Ot Z79.899 OTHER DOLL REPAIRER (CURRENT) DRUG THERAPY 04/09/2016 BEBETO HOLLINGSWORTH MD, [...] DO, Ot I25.10 ATHSCL HEART DISEASE OF [place] CORONARY 08/12/2016 ESTHER DANIELLE DO, Ot I42.9 [...] PAT 08/12/2016 ESTHER DANIELLE DO Ot Z79.01 DOLL REPAIRER (CURRENT) USE OF ANTICOAGULANT 08/12/2016 ESTHER DANIELLE [...] 08/22/2016 ZENIA MEDINA APRN Ot Z79.899 OTHER RESIDENTIAL (CURRENT) DRUG THERAPY 08/28/2016 ALAINA IRVING MD Ot E03.9 HYPOTHYROIDISM, UNSPECIFIED 08/28/2016 ALAINA IRVING MD Ot E11.9 TYPE 2 DIABETES MELLITUS WITHOUT COMPLIC 08/28/2016 ALAINA IRVING MD Ot F32.9 MAJOR DEPRESSIVE DISORDER, SINGLE EPISOD 08/28/2016 ALAINA IRVING MD, Ot F41.9 ANXIETY DISORDER, UNSPECIFIED 08/28/2016 ALAINA IRVING MD, Ot G47.33 OBSTRUCTIVE SLEEP APNEA (ADULT) (PEDIATR 08/28/2016 ALAINA IRVING MD Ot H91.90 UNSPECIFIED HEARING LOSS, UNSPECIFIED EA 08/28/2016 ALAINA IRVING MD, Ot I25.10 ATHSCL HEART DISEASE OF [place] CORONARY 08/28/2016 ALAINA IRVING MD Ot I42.9 CARDIOMYOPATHY, UNSPECIFIED 08/28/2016 ALAINA IRVING MD Ot I48.91 UNSPECIFIED ATRIAL FIBRILLATION 08/28/2016 ALAINA IRVING MD Ot K21.9 GASTRO-ESOPHAGEAL REFLUX DISEASE WITHOUT 08/28/2016 ALAINA IRVING MD Ot K62.3 RECTAL PROLAPSE 08/28/2016 ALAINA IRVING MD, Ot K64.2 THIRD DEGREE HEMORRHOIDS 08/28/2016 ALAINA IRVING MD, Ot M81.0 AGE-RELATED OSTEOPOROSIS W/O CURRENT PAT 08/28/2016 ALAINA IRVING MD, Ot Z79.01 DOLL REPAIRER (CURRENT) USE OF ANTICOAGULANT 08/31/2016 KITCHENMARK REYNA [...] ALMA Ot I25.10 ATHSCL HEART DISEASE OF [place] CORONARY 08/31/2016 FIDELINA REYNA ALMA Ot I42.9 [...] PAT 08/31/2016 FIDELINA REYNA ALMA Ot Z79.01 RESIDENTIAL (CURRENT) USE OF ANTICOAGULANT 09/03/2016 ALAINA IRVING [...] MD, Ot I25.10 ATHSCL HEART DISEASE OF [place] CORONARY 09/03/2016 ALAINA IRVING MD, Ot I42.9 CARDIOMYOPATHY, UNSPECIFIED 09/03/2016 ALAINA IRVING MD, Ot I48.91 UNSPECIFIED ATRIAL FIBRILLATION 09/03/2016 ALAINA IRVING MD, Ot K21.9 GASTRO-ESOPHAGEAL REFLUX DISEASE WITHOUT 09/03/2016 ALAINA IRVING MD, Ot K62.3 RECTAL PROLAPSE 09/03/2016 ALAINA IRVING MD, Ot K64.2 THIRD DEGREE HEMORRHOIDS 09/03/2016 ALAINA IRVING MD, Ot M81.0 AGE-RELATED OSTEOPOROSIS W/O CURRENT PAT 09/03/2016 ALAINA IRVING MD, Ot Z79.01 DOLL REPAIRER (CURRENT) USE OF ANTICOAGULANT 09/21/2016 DEVI BERGERON [...] 09/21/2016 DEVI BERGERON MD Ot Z79.899 OTHER RESIDENTIAL (CURRENT) DRUG THERAPY 09/22/2016 DEVI BERGERON MD [...] 09/22/2016 DEVI BERGERON MD Ot Z79.899 OTHER DOLL REPAIRER (CURRENT) DRUG THERAPY 09/23/2016 DEVI BERGERON MD [...] 09/23/2016 DEVI BERGERON MD Ot Z79.899 OTHER DOLL REPAIRER (CURRENT) DRUG THERAPY 10/10/2016 DEVI BERGERON MD [...] 10/10/2016 DEVI BERGERON MD Ot Z79.899 OTHER RESIDENTIAL (CURRENT) DRUG THERAPY 11/26/2016 ESTHER DANIELLE DO [...] MD, Ot I25.10 ATHSCL HEART DISEASE OF [place] CORONARY 01/02/2017 ALAINA IRVING MD, Ot I42.9 CARDIOMYOPATHY, UNSPECIFIED 01/02/2017 ALAINA IRVING MD, Ot I48.91 UNSPECIFIED ATRIAL FIBRILLATION 01/02/2017 ALAINA IRVING MD, Ot K21.9 GASTRO-ESOPHAGEAL REFLUX DISEASE WITHOUT 01/02/2017 ALAINA IRVING MD, Ot K62.3 RECTAL PROLAPSE 01/02/2017 ALAINA IRVING MD, Ot K64.2 THIRD DEGREE HEMORRHOIDS 01/02/2017 ALAINA IRVING MD, Ot M81.0 AGE-RELATED OSTEOPOROSIS W/O CURRENT PAT 01/02/2017 ALAINA IRVING MD, Ot Z79.01 RESIDENTIAL (CURRENT) USE OF ANTICOAGULANT 01/29/2017 MIRACLE HICKMAN [...] DO Ot I25.10 ATHSCL HEART DISEASE OF [place] CORONARY 01/29/2017 MIRACLE HICKMAN DO Ot I42.9 CARDIOMYOPATHY, UNSPECIFIED 01/29/2017 MIRACLE HICKMAN DO Ot I48.91 UNSPECIFIED ATRIAL FIBRILLATION 01/29/2017 MIRACLE HICKMAN DO Gab J45.909 UNSPECIFIED ASTHMA, UNCOMPLICATED 01/29/2017 VICK REYNA MIRACLE Gonzalez Gab K21.9 GASTRO-ESOPHAGEAL REFLUX DISEASE WITHOUT 01/29/2017 VICK REYNA MIRACLE Gonzalez Ot M19.90 UNSPECIFIED OSTEOARTHRITIS, UNSPECIFIED 01/29/2017 MIRACLE HICKMAN DO Gab M79.644 PAIN IN RIGHT FINGER(S) 01/29/2017 VICK REYNA MIRACLE Gonzalez Gab M81.0 AGE-RELATED OSTEOPOROSIS W/O CURRENT PAT 01/29/2017 VICK REYNA MIRACLE Gonzalez Gab S66.911A STRAIN OF UNSP MUSC/FASC/TEND AT WRS/HND 01/29/2017 VICK REYNA MIRACLE Lisa De Guzman X58.XXXA EXPOSURE TO OTHER SPECIFIED FACTORS, INI 01/29/2017 VICK REYNA MIRACLE Lisa De Guzman Z87.19 PERSONAL HISTORY OF OTHER DISEASES OF TH 01/29/2017 VICK REYNAMIRACLE Ot Z87.440 PERSONAL HISTORY OF URINARY (TRACT) INFE 01/29/2017 VICK DOMIRACLE Ot Z90.49 ACQUIRED ABSENCE OF OTHER SPECIFIED PART 01/29/2017 VICK REYNAMIRACLE Ot Z90.710 ACQUIRED ABSENCE OF BOTH CERVIX AND UTER 01/29/2017 VICK DOMIRACLE Ot Z90.89 ACQUIRED ABSENCE OF OTHER ORGANS 06/24/2017 CALEB GARIBAY, SMITH Timmons Ot K21.9 GASTRO-ESOPHAGEAL REFLUX DISEASE WITHOUT 06/24/2017 CALEB GARIBAY, SMITH Timmons Ot Z01.818 ENCOUNTER FOR OTHER PREPROCEDURAL EXAMIN 06/25/2017 SMITH ELLIS MD, Ot K21.9 GASTRO-ESOPHAGEAL REFLUX DISEASE WITHOUT 06/25/2017 SMITH ELLIS MD Ot Z01.818 ENCOUNTER FOR OTHER PREPROCEDURAL EXAMIN 06/28/2017 SMITH ELLIS MD Ot E03.9 HYPOTHYROIDISM, UNSPECIFIED 06/28/2017 SMITH ELLIS MD, Ot E11.9 TYPE 2 DIABETES MELLITUS WITHOUT COMPLIC 06/28/2017 SMITH ELLIS MD, Ot F32.9 MAJOR DEPRESSIVE DISORDER, SINGLE EPISOD 06/28/2017 SMITH ELLIS MD, Ot F41.9 ANXIETY DISORDER, UNSPECIFIED 06/28/2017 ELLIS MD, SMITH M Ot I10 ESSENTIAL (PRIMARY) HYPERTENSION 06/28/2017 CALEB GARIBAY, SMITH M Ot I25.10 ATHSCL HEART DISEASE OF [place] CORONARY 06/28/2017 CALEB GARIBAY, SMITH M Ot I48.91 UNSPECIFIED ATRIAL FIBRILLATION 06/28/2017 CALEB GARIBAY, SMITH M Ot K29.70 GASTRITIS, UNSPECIFIED, WITHOUT BLEEDING 06/28/2017 CALEB GARIBAY, SMITH M Ot R13.10 DYSPHAGIA, UNSPECIFIED 06/28/2017 CALEB GARIBAY, SMITH M Ot Z79.899 OTHER DOLL REPAIRER (CURRENT) DRUG THERAPY 06/28/2017 SMITH ELLIS MD M Ot Z88.0 ALLERGY STATUS TO PENICILLIN 06/28/2017 SMITH ELLIS MD M Ot Z88.1 ALLERGY STATUS TO OTHER ANTIBIOTIC AGENT 06/28/2017 SMITH ELLIS MD Ot Z88.2 ALLERGY STATUS TO SULFONAMIDES STATUS 06/28/2017 SMITH ELLIS MD Ot Z88.8 ALLERGY STATUS TO OTH DRUG/MEDS/BIOL SUB 06/29/2017 CALEB GARIBAY, SMITH M Ot E03.9 HYPOTHYROIDISM, UNSPECIFIED 06/29/2017 CALEB GARIBAY, SMITH Timmons Ot E11.9 TYPE 2 DIABETES MELLITUS WITHOUT COMPLIC 06/29/2017 CALEB GARIBAY, SMITH Timmons Ot F32.9 MAJOR DEPRESSIVE DISORDER, SINGLE EPISOD 06/29/2017 CALEB GARIBAY, SMITH Timmons Ot F41.9 ANXIETY DISORDER, UNSPECIFIED 06/29/2017 CALEB GARIBAY, SMITH M Ot I10 ESSENTIAL (PRIMARY) HYPERTENSION 06/29/2017 CALEB GARIBAY, SMITH Timmons Ot I25.10 ATHSCL HEART DISEASE OF [place] CORONARY 06/29/2017 CALEB GARIBAY, SMITH Timmons Ot I48.91 UNSPECIFIED ATRIAL FIBRILLATION 06/29/2017 CALEB GARIBAY, SMITH Timmons Ot K29.70 GASTRITIS, UNSPECIFIED, WITHOUT BLEEDING 06/29/2017 CALEB GARIBAY, SMITH M Ot R13.10 DYSPHAGIA, UNSPECIFIED 06/29/2017 CALEB GARIBAY, SMITH M Ot Z79.899 OTHER DOLL REPAIRER (CURRENT) DRUG THERAPY 06/29/2017 SMITH ELLIS MD M Ot Z88.0 ALLERGY STATUS TO PENICILLIN 06/29/2017 SMITH ELLIS MD M Ot Z88.1 ALLERGY STATUS TO OTHER ANTIBIOTIC AGENT 06/29/2017 SMITH ELLIS MD Ot Z88.2 ALLERGY STATUS TO SULFONAMIDES STATUS 06/29/2017 CALEB GARIBAY, SMITH Timmons Ot Z88.8 ALLERGY STATUS TO OTH DRUG/MEDS/BIOL SUB 06/30/2017 ALAINA IRVING MD, Ot E03.9 HYPOTHYROIDISM, UNSPECIFIED 06/30/2017 ALAINA IRVING MD, Ot E11.9 TYPE 2 DIABETES MELLITUS WITHOUT COMPLIC 06/30/2017 ALAINA IRVING MD, Ot F32.9 MAJOR DEPRESSIVE DISORDER, SINGLE EPISOD 06/30/2017 ALAINA IRVING MD, Ot F41.9 ANXIETY DISORDER, UNSPECIFIED 06/30/2017 ALAINA IRVING MD, Ot G47.33 OBSTRUCTIVE SLEEP APNEA (ADULT) (PEDIATR 06/30/2017 ALAINA IRVING MD, Ot H91.90 UNSPECIFIED HEARING LOSS, UNSPECIFIED EA 06/30/2017 ALAINA IRVING MD, Ot I25.10 ATHSCL HEART DISEASE OF [place] CORONARY 06/30/2017 ALAINA IRVING MD Ot I42.9 CARDIOMYOPATHY, UNSPECIFIED 06/30/2017 ALAINA IRVING MD, Ot I48.91 UNSPECIFIED ATRIAL FIBRILLATION 06/30/2017 ALAINA IRVING MD, Ot K21.9 GASTRO-ESOPHAGEAL REFLUX DISEASE WITHOUT 06/30/2017 ALAINA IRVING MD, Ot K62.3 RECTAL PROLAPSE 06/30/2017 ALAINA IRVING MD, Ot K64.2 THIRD DEGREE HEMORRHOIDS 06/30/2017 ALAINA IRVING MD, Ot M81.0 AGE-RELATED OSTEOPOROSIS W/O CURRENT PAT 06/30/2017 ALAINA IRVING MD, Ot Z79.01 DOLL REPAIRER (CURRENT) USE OF ANTICOAGULANT 11/22/2017 Ot 477.9 ALLERGIC RHINITIS NOS 11/22/2017 CALEB GARIBAY, SMITH Timmons Ot V72.84 EXAM PRE-OPERATIVE NOS 11/22/2017 ESTHER DANIELLE DO Ot 564.00 UNSPEC CONSTIPATION 11/22/2017 ESTHER DANIELLE DO Ot 789.00 ABDOMINAL PAIN, UNSPECIFIED SITE 11/22/2017 SMITH ELLIS MD Ot V72.84 EXAM PRE-OPERATIVE NOS 11/22/2017 ESTHER DANIELLE DO Ot 786.50 CHEST PAIN NOS 11/22/2017 ESTHER DANIELLE DO Ot 959.11 OTH INJURY OF CHEST WALL 11/22/2017 ESTHER DANIELLE DO Ot E000.8 OTHER EXTERNAL CAUSE STATUS 11/22/2017 ESTHER DANIELLE DO Ot E928.9 ACCIDENT NOS 11/22/2017 BEBETO HOLLINGSWORTH MD Ot E78.5 HYPERLIPIDEMIA, UNSPECIFIED 11/22/2017 BEBETO HOLLINGSWORTH MD Ot F41.8 OTHER SPECIFIED ANXIETY DISORDERS 11/22/2017 BEBETO HOLLINGSWORTH MD Ot I10 ESSENTIAL (PRIMARY) HYPERTENSION 11/22/2017 BEBETO HOLLINGSWORTH MD Ot I48.0 PAROXYSMAL ATRIAL FIBRILLATION 11/22/2017 BEBETO HOLLINGSWORTH MD, Ot I49.5 SICK SINUS SYNDROME 11/22/2017 BEBETO HOLLINGSWORTH MD Ot Z79.01 RESIDENTIAL (CURRENT) USE OF ANTICOAGULANT 11/22/2017 BEBETO HOLLINGSWORTH MD Ot Z79.899 OTHER DOLL REPAIRER (CURRENT) DRUG THERAPY 11/22/2017 BEBETO HOLLINGSWORTH MD, Ot Z86.73 PRSNL HX OF TIA (TIA), AND CEREB INFRC W 11/22/2017 ESTHER DANIELLE DO Ot M25.512 PAIN IN LEFT SHOULDER 11/23/2017 Ot 477.9 ALLERGIC RHINITIS NOS 11/23/2017 CALEB GARIBAY, SMITH Timmons Ot V72.84 EXAM PRE-OPERATIVE NOS 11/23/2017 ESTHER DANIELLE DO Ot 564.00 UNSPEC CONSTIPATION 11/23/2017 ESTHER DANIELLE DO Ot 789.00 ABDOMINAL PAIN, UNSPECIFIED SITE 11/23/2017 SMITH ELLIS MD Ot V72.84 EXAM PRE-OPERATIVE NOS 11/23/2017 ESTHER DANIELLE DO Ot 786.50 CHEST PAIN NOS 11/23/2017 ESTHER DANIELLE DO Ot 959.11 OTH INJURY OF CHEST WALL 11/23/2017 ESTHER DANIELLE DO Ot E000.8 OTHER EXTERNAL CAUSE STATUS 11/23/2017 ESTHER DANIELLE DO Ot E928.9 ACCIDENT NOS 11/23/2017 BEBETO HOLLINGSWORTH MD Ot E78.5 HYPERLIPIDEMIA, UNSPECIFIED 11/23/2017 BEBETO HOLLINGSWORTH MD Ot F41.8 OTHER SPECIFIED ANXIETY DISORDERS 11/23/2017 BEBETO HOLLINGSWORTH MD Ot I10 ESSENTIAL (PRIMARY) HYPERTENSION 11/23/2017 BEBETO HOLLINGSWORTH MD, Ot I48.0 PAROXYSMAL ATRIAL FIBRILLATION 11/23/2017 BEBETO HOLLINGSWORTH MD, Ot I49.5 SICK SINUS SYNDROME 11/23/2017 BEBETO HOLLINGSWORTH MD, Ot Z79.01 RESIDENTIAL (CURRENT) USE OF ANTICOAGULANT 11/23/2017 BEBETO HOLLINGSWORTH MD, Ot Z79.899 OTHER RESIDENTIAL (CURRENT) DRUG THERAPY 11/23/2017 BEBETO HOLLINGSWORTH MD, Ot Z86.73 PRSNL HX OF TIA (TIA), AND CEREB INFRC W 11/23/2017 ESTHER DANIELLE DO, Ot M25.512 PAIN IN LEFT SHOULDER Procedures Code Description Performed By Performed On 45.13 OTHER ENDOSCOPY OF SM INTEST 04/04/2013 44.43 ENDOSCOPIC CONTROL OF GASTRIC OR DUODENA 07/29/2014 [id number] EXCISION OF ESOPHAGOGASTRIC JUNCTION, EN 08/11/2016 [id number] EXCISION OF STOMACH, PYLORUS, ENDO, DIAG 08/11/2016 [id number] INSPECTION OF LOWER INTESTINAL TRACT, EN 08/11/2016 [...] panel - 08/09/16 22:12 ABO+Rh group OP [facility] Transfusion band number [id number] [facility] Blood group antibody screen NEGATIVE [facility] Methicillin resistant Staphylococcus aureus (MRSA) screening culture - 23:00 Methicillin resistant Staphylococcus aureus (MRSA) screening culture NEG [facility] Whole blood hemoglobin and hematocrit panel - [...] ABO+Rh group OP [facility] Transfusion band number [id number] [facility] Blood group antibody screen NEGATIVE [facility] Methicillin resistant Staphylococcus aureus (MRSA) screening culture - 00:15 Methicillin resistant Staphylococcus aureus (MRSA) screening culture NEG NR Complete blood count (CBC) with automated white [...] Status Pt. Type Provider Facility Loc./Unit Complaint [id number] 11/23/2017 14:42:00 11/23/2017 17:09:00 DIS Emergency RUBY WYNN [facility] ER CONSTIPATION/FEVER [id number] 06/28/2017 07:34:00 06/28/2017 11:05:00 DIS Outpatient CALEB GARIBAY, SMITH Timmons [facility] ENDO GERD [id number] 06/24/2017 09:19:00 06/24/2017 10:29:00 DIS Outpatient CALEB GARIBAY, SMITH Timmons [facility] PREOP EGD [id number] 01/29/2017 20:55:00 01/29/2017 23:23:00 DIS Emergency MIRACLE HICKMAN DO [facility] ER R HAND THUMB PAIN [id number] 11/02/2016 12:08:00 11/02/2016 23:59:59 CLS Outpatient ESTHER DANIELLE DO [facility] RAD L SHOULDER PAIN [id number] 09/21/2016 18:41:00 09/21/2016 19:47:00 DIS Emergency RUBIO GARIBAY, DEVI Haas [facility] ER CHOKING [id number] 08/28/2016 12:32:00 08/31/2016 13:35:00 DIS Inpatient ALMA KITCHEN DO [facility] 4TH SWB-ANEMIA [id number] 08/26/2016 19:35:00 08/28/2016 12:31:00 DIS [facility] L[facility] GI BLEED, HEMORRHOIDS [id number] 08/22/2016 21:40:00 08/22/2016 23:26:00 DIS Emergency ZENIA MEDINA APRN [facility] ER RECTAL BLEEDING [id number] 08/09/2016 22:05:00 08/12/2016 14:30:00 DIS Inpatient ESTHER DANIELLE DO [facility] 4TH LOWER GIB, ABD PX, H/ O GASTRIK ULCERS [id number] 03/04/2016 10:45:00 03/04/2016 23:59:59 CLS Outpatient BEBETO HOLLINGSWORTH MD [facility] CATH AR,HTN,FATIGUE,PAF,SSS, DIZZINESS [id number] 02/13/2016 21:59:00 02/15/2016 13:48:00 DIS Inpatient ESTHER DANIELLE DO [facility] ICU TIA;UNCONTROLLED HTN; INTERMITTENT A.FIB [id number] 01/12/2016 22:44:00 01/13/2016 00:02:00 DIS Emergency SAMIRA ELLIOTT MD [facility] ER ABD PAIN/N/V [id number] 05/19/2015 09:06:00 05/19/2015 12:33:00 DIS Emergency CARLINE LIMA MD [facility] ER ELEVATED BP, DIARRHEA [id number] 10/31/2014 14:02:00 10/31/2014 23:59:59 CLS Outpatient ESTHER DANIELLE DO [facility] RAD CHEST PAIN [id number] 10/03/2014 11:39:00 10/03/2014 18:05:00 DIS Outpatient SMITH ELLIS MD [facility] SDC STRICTURE; ABNORMAL CT [id number] 09/27/2014 06:02:00 09/27/2014 23:59:59 CLS Outpatient SMITH ELLIS MD [facility] PREOP STRICTURE; ABNORMAL CT [id number] 08/23/2014 14:18:00 08/23/2014 23:59:59 CLS Outpatient ESTHER DANIELLE DO [facility] RAD CONSTIPATION,ABD PAIN [id number] 08/18/2014 10:00:00 08/20/2014 11:15:00 DIS Inpatient ALAINA IRVING MD [facility] SURGICAL PARTIAL BOWEL OBSTRUCTIN,UTI,RECENT GI BLEED [id number] 07/29/2014 02:11:00 07/30/2014 16:30:00 DIS Inpatient ODGERS MD, HERMANN Gonzalez [facility] SURGICAL GI BLEED [id number] 06/19/2014 12:06:00 06/19/2014 14:07:00 DIS Emergency ZENIA MEDINA APRN [facility] ER NAUSEATED FEELS LIKE HEART IS RACING [id number] 08/07/2013 06:45:00 08/07/2013 10:20:00 DIS Outpatient SMITH ELLIS MD [facility] SDC GI BLEED [id number] 08/05/2013 09:17:00 08/05/2013 12:06:00 DIS Emergency ZENIA MEDINA APRN [facility] ER ELEVATED BP,NAUSEA [id number] 08/03/2013 07:27:00 08/03/2013 23:59:59 CLS Outpatient SMITH ELLIS MD [facility] PREOP GI BLEED [id number] 04/02/2013 10:19:00 04/05/2013 13:00:00 DIS Inpatient MINDI LEE MD [facility] SURGICAL GI BLEED [id number] 12/31/2012 13:04:00 01/02/2013 10:45:00 DIS Inpatient SMITH ELLIS MD [facility] SURGICAL BOWEL OBSTRUCTION [id number] 11/06/2012 15:55:00 11/07/2012 12:00:00 DIS Inpatient LORIE GARIBAY FACC, KISHAN CASILLAS CCDS [facility] CSD A FIB [id number] 11/25/2017 10:00:00 PEN Susan GRANT MD, Iain DIAMOND [facility] CATH SYMPTOMATIC SINUS NODE DYSFUCTION,AFIB [id number] 11/24/2017 11:40:00 ACT Outpatient ESTHER DANIELLE DO [facility] RT AMIODARONE NEUROPY, MEDICATION MONITORING [id number] 08/12/2012 09:32:00 Document Registration [id number] 07/26/2012 08:35:00 Document Registration [id number] 07/03/2012 18:35:00 Document Registration [id number] 03/05/2012 03:50:00 Document Registration [id number] 01/27/2012 05:36:00 Document Registration [id number] 01/18/2012 07:30:00 Document Registration [id number] 12/28/2011 11:50:00 Document Registration [id number] 12/25/2011 08:22:00 Document Registration [id number] 12/23/2011 08:05:00 Document Registration [id number] 10/22/2011 07:43:00 Document Registration [id number] 09/09/2011 22:17:00 Document Registration [id number] 02/03/2011 13:43:00 Document Registration [id number] 01/15/2011 09:33:00 Document Registration [id number] 08/11/2010 16:30:00 Document Registration
[2017-11-25] MEDS ORDERED: NS IV 1000 ML 1,000 ML IV SCH ×2 (08:23→12:09)
[2017-11-25 08:42] LABS: HEMOGLOBIN 11.8 G/DL (11.5-16.0); MEAN PLATELET VOLUME 10.1 FL (7.4-10.4); RED BLOOD COUNT 5.03 10^6/uL (4.35-5.85); RED CELL DISTRIBUTION WIDTH 18.3 % (10.0-14.5); WHITE BLOOD COUNT 5.9 10^3/uL (4.3-11.0)
[2017-11-25 08:57] LABS: INR 1.1 (0.8-1.4); PROTHROMBIN TIME PATIENT 13.8 SEC (12.2-14.7)
[2017-11-25 09:03] LABS: ALBUMIN 4.1 GM/DL (3.2-4.5); BILIRUBIN,TOTAL 0.9 MG/DL (0.1-1.0); CALCIUM 9.7 MG/DL (8.5-10.1); CREATININE SERUM 0.98 MG/DL (0.60-1.30); POTASSIUM 4.1 MMOL/L (3.6-5.0); TOTAL PROTEIN 7.6 GM/DL (6.4-8.2)
[2017-11-25] MEDS ORDERED: NS (IVPB) 250 ML ONE (09:05)
[2017-11-25] MEDS ORDERED: VANCOMYCIN 1000 MG/VIAL ONE (09:05)
[2017-11-25] MEDS ORDERED: MIDAZOLAM 5 MG/5 ML (VERSED) VIAL ONE ×2 (09:08→10:37)
[2017-11-25] MEDS ORDERED: fentaNYL INJECTION 100 MCG/2 ML AMP ONE (09:08)
[2017-11-25] MEDS ORDERED: POTA10TA36 PO (09:26)
[2017-11-25] MEDS ORDERED: POLY17PO6 PO (09:26)
[2017-11-25] MEDS ORDERED: AMIO200T4 PO (09:26)
[2017-11-25] MEDS ORDERED: FEXO180T84 PO (09:26)
[2017-11-25] MEDS ORDERED: OMEP40CA36 PO (09:26)
[2017-11-25] MEDS ORDERED: TEMA15CA PO (09:26)
[2017-11-25] MEDS ORDERED: TRIM100T PO (09:26)
[2017-11-25] MEDS ORDERED: BACITRACIN INJECTION 50,000 UNIT, SODIUM CHLORIDE 0.9% IRRIGATIO 500 ML IR ONE ×2 (10:00)
--- NOTE | 2017-11-25 10:03 | Cardiac Procedure Note-CS/ASA ---
Pre-Procedure Note Pre-Op Procedure Note H&P Reviewed The H&P was reviewed, patient examined and no changes noted. Date H&P Reviewed: Nov 25, 2017 Time H&P Reviewed: 10:03 Conscious Sedation Pre-Proced Time Reviewed: 10:03 ASA Class: 3 Airway Mallampati Classification: (soboba appropriate class) I. II. III, IV Lungs Heart ASA score ASA 1: a normal healthy patient ASA 2: a patient with a mild systemic disease (mid diabetes, controlled hypertension, obesity ASA 3: a patient with a severe systemic disease that limits activity (angina , COPD, prior Myocardial infarction) ASA 4: a patient with an incapacitating disease that is a constant threat to life (CHF, renal failure) ASA 5: a moribund patient not expected to survive 24 hrs. (ruptured aneurysm) ASA 6: a declared brain patient whose organs are being harvested. For emergent operations, add the letter E after the classification Grade 1 Sedation Plan: Analgesia, Amnesia, Plan communicated to team members, Discussed options with patient/fam, Discussed risks with patient/fam Note The patient is an appropriate candidate to undergo the planned procedure, sedation, and anesthesia. The patient immediately re-assessed prior to indication. Iain GRANT MD Nov 25, 2017 10:03 am
[2017-11-25] MEDS ORDERED: diphenhydrAMINE 50 MG/ML INJ (BENADRYL) ONE (11:55)
[2017-11-25] MEDS ORDERED: NEO/POLY/BAC (NEOSPORIN) OINT 15 GM TUBE ONE (12:00)
--- NOTE | 2017-11-25 12:09 | Permanent Pacemaker Implant ---
Dual Chamber Pacemaker Implant PROCEDURE PHYSICIAN: Trudy Bland MD DUAL CHAMBER PACEMAKER IMPLANTATION: DATE OF PROCEDURE: 11/25/17 INDICATION: Severe symptomatic sinus node dysfunction. PREOPERATIVE DIAGNOSIS: Severe symptomatic sinus node dysfunction. POSTOPERATIVE DIAGNOSIS: 1. Successful dual chamber permanent pacemaker implantation. 2. ILR removal HISTORY: This is a 82 year old lady with PAF, severe symptomatic sinus node dysfunction with pauses and bradycardia in the 40s with fatigue. beta blockers are need for AF control however patient cannot tolerate. Dual-chamber permanent pacemaker was recommended. PROCEDURE PERFORMED: 1. Dual-chamber permanent pacemaker implantation. 2. Fluoroscopy. 3. Central venous access. 4. Loop recorder removal. ANESTHESIA: Local anesthesia, conscious sedation. COMPLICATIONS: None. ESTIMATED BLOOD LOSS:20 mL. SPECIMENS: None. ORAL ANTICOAGULATION: None. FLUOROSCOPY TIME: 17 minutes. FLUOROSCOPY DOSE: 78 mgy. CONTRAST DOSE: none PROCEDURE DETAILS: The patient is a 82 female and after all of the patients questions were answered, the patient was brought to the EP Lab. The patient's left chest was prepped and draped in sterile fashion. A 2 inch horizontal incision was made 1 cm below the clavicle and dissection carried down to the pectoralis fascia. Using the modified Seldinger technique and under fluoroscopy guidance, the anterior aspect of the left axillary vein was accessed 2 times. The J wires were secured to the drapes with a mosquito clamp. A 7-Fijian sheath was introduced over one of the J-wires. The RV lead was then inserted. The RV lead was directed across the tricuspid valve to the apical septal portion of the right ventricle. The position was checked in KAZAKH and MATHIS views. The screw was deployed and the lead connected to the engineering programmer. Close sensing and pacing thresholds were obtained. Diaphragmatic pacing was ruled out. The lead was secured with 2-0 silk ties to the underlying muscle and fascia. Next, a 7-Fijian sheath was introduced through the remaining J-wire. An atrial lead was then introduced and guided to the level of the right appendage. The screw was deployed and the lead was connected to the interrogator. Good sensing , however the patient went into atrial fibrillation therefore pacing threshold could not be evaluated. Diaphragmatic pacing was ruled out. The leads were secured with 2-0 silk ties to the underlying muscle and fascia. The leads were connected to the device in a hermetic fashion. The device and leads were placed in the pocket. Aggressive irrigation with saline solution was done. The device was secured to the underlying muscle and fascia with a 2-0 silk tie. interrogation of the device revealed good integrity of all the leads and good connections. The wound was then closed using 2 layers. The first layer was interrupted 2-0 absorbable Vicryl suture. The last layer was a single subcuticular layer with 4- 0 Vicryl suture. Half inch Steri-Strips and a small dressing were then applied to the wound. We then gave local anesthesia to the left chest at the site of LINQ ILR. ILR removal was done with no complications. The patient tolerated the procedure well and was returned to the recovery room in stable condition with stable vital signs. DEVICE INFORMATION: [employer] [id number] Teresa RAMOS, serial number [id number]. RA LEAD: Model [id number], length 45, serial number [id number]. RV LEAD: Model number [id number], length 52, serial number [id number]. PER-OPERATIVE DEVICE INTERROGATION: RA pulse width 0.5 ms, and atrial fibrillation therefore threshold not done. P wave 1.2 mV. RV threshold 1.1 V @ 0.5 ms. Impedance 729 ohms. R-wave 7.2 mV. Remote device information: Linq (REVEAL). Serial number [id number]. Implant date 03/04/2016. PLAN: The patient transferred to the ICU. We will continue with two more doses of IV antibiotics. We will check a chest x-ray and interrogate the device in the morning. The patient will continue on oral antibiotics for 5 days. Trudy Bland MD, [facility], CCDS Cardiac Electrophysiology Iain BLAND MD Nov 25, 2017 12:09
--- NOTE | 2017-11-25 12:09 | Cardiology Post Procedure Note ---
Post-Procedure Note Physician (s)/Enamel Sprayer (s) Physician Iain GRANT MD Pre-Procedure Diagnosis Pre-Procedure Diagnosis: Symptomatic severe sinus node dysfunction Post-Procedure Note Procedure Start Date: Nov 25, 2017 Procedure Start Time: 10:30 Name of Procedure: Dual chamber PPM implantation Findings/Procedure Note Dual Chamber PPM implantation, ILR removal Anesthesia Type: Conscious Sedation Estimated blood loss (mL): 10 Contrast Amount: 0 Post-Procedure Diagnosis Post-operative diagnosis: Successful Dual chamber PPM implantation, Loop recorder removal Iain GRANT MD Nov 25, 2017 12:09 pm
[2017-11-25] MEDS ORDERED: PATIENT MAY USE OWN MEDS, ALL PO SCH (12:15)
--- NOTE | 2017-11-25 14:16 | Diagnostic Imaging Report ---
INDICATION: Post pacemaker. FINDINGS: Battery overlies the left chest, the leads unremarkable. There is no pneumothorax. Expiratory radiograph crowds the lung markings with no focal consolidation. IMPRESSION: No pneumothorax or pleural fluid post pacemaker. Dictated by: Dictated on workstation # [id number]
[2017-11-25] MEDS ORDERED: VANCOMYCIN INJECTION 1,000 MG in NS (IVPB) 250 ML IV SCH (21:00)
[2017-11-26] VITALS: BP 114/65
[2017-11-26 03:42] LABS: HEMOGLOBIN 10.8 G/DL (11.5-16.0); MEAN PLATELET VOLUME 10.2 FL (7.4-10.4); RED BLOOD COUNT 4.51 10^6/uL (4.35-5.85); RED CELL DISTRIBUTION WIDTH 17.6 % (10.0-14.5); WHITE BLOOD COUNT 5.4 10^3/uL (4.3-11.0)
[2017-11-26 04:00] VITALS: BP 119/80
[2017-11-26 04:04] LABS: ALANINE AMINOTRANSFERASE 6 U/L (0-55); ALBUMIN 3.5 GM/DL (3.2-4.5); ALKALINE PHOSPHATASE 96 U/L (40-136); BILIRUBIN,TOTAL 0.6 MG/DL (0.1-1.0); BUN/CREATININE RATIO 16; CALCIUM 8.6 MG/DL (8.5-10.1); CARBON DIOXIDE 21 MMOL/L (21-32); CHLORIDE 113 MMOL/L (98-107); CREATININE SERUM 0.87 MG/DL (0.60-1.30); GFR ESTIMATED > 60; GLUCOSE 104 MG/DL (70-105); POTASSIUM 3.9 MMOL/L (3.6-5.0); SODIUM 141 MMOL/L (135-145); TOTAL PROTEIN 6.1 GM/DL (6.4-8.2)
[2017-11-26] MEDS ORDERED: ACETAMINOPHEN 325 MG TABLET ONE (07:56)
[2017-11-26] MEDS ORDERED: ACETAMINOPHEN 325 MG TABLET PO PRN (08:00)
[2017-11-26 08:09] VITALS: BP 120/62
[2017-11-26] MEDS ORDERED: VANCOMYCIN INJECTION 1,000 MG in NS (IVPB) 250 ML IV SCH (10:00)
[2017-11-26] MEDS ORDERED: CLIN300C11 PO (10:01)
--- NOTE | 2017-11-26 10:28 | Cardiology Discharge Summary ---
Diagnosis/Chief Complaint Date of Admission 11/25/2017 Date of Discharge 11/26/2017 Admission Diagnosis Severe symptomatic sinus node dysfunction Final/Discharge Diagnosis Status post dual chamber permanent pacemaker implantation Chief Complaint/HPI Chief Complaint/HPI This is a 82 year old lady with PAF, severe symptomatic sinus node dysfunction with pauses and bradycardia in the 40s with fatigue. beta blockers are need for AF control however patient cannot tolerate. Dual-chamber permanent pacemaker was recommended. Discharge Summary Procedures Dual-chamber permanent pacemaker implantation, ILR removal. Discharge Physical Examination Normal cardiovascular and respiratory examination. Normal upper chest examination with no bruising, swelling or erythema. Hospital Course Unremarkable. Pending Labs Discussion & Recommendations Discussion Device interrogation normal this morning. Telemetry showed atrial pacing. Chest x-ray did not show any pneumothorax. Patient will be discharged on antibiotics for the next 5 days. Follow-up in the office in 7 days. Discharge instructions discussed at length with the patient. Discharge took over 30 minutes to complete. Follow up appt.: Dr. Bland in 7 days. Dicharge Diet: Cardiac Diet Activity as Tolerated: Yes Home Medications Reviewed patient Home Medication Reconciliation performed by pharmacy medication reconciliations semiconductor processing technician and/or nursing. Patients Allergies have been reviewed. Discharge Home Medications: Reviewed and agree with Discharge Medication list on patient's Discharge Instruction sheet Condition at discharge Stable Instructions to patient/family Follow-up with Dr. Bland in Iain BLAND MD Nov 26, 2017 10:27
--- NOTE | 2017-11-26 10:28 | Discharge Inst-Post Device ---
Discharge Inst-Post Device Follow up/Plan Dr Bland in one week Heart Healthy Diet Do not lift arm on side of device placement above head for 4 weeks. Do not push and pull heavy objects for 4 weeks. Activity as tolerated. Leave dressing on until follow up at the office. Iain BLAND MD Nov 26, 2017 10:28 am
== END 2017-11-26 11:20 | disposition home or self-care (01) ==
LOC: CATH 08:05 → ICU 19:14 → CATH 11-26 11:20
PROVIDERS: ATTEND Internal Medicine Interventional Cardiology
DX: I49.5 Sick sinus syndrome (principal); I48.0 Paroxysmal atrial fibrillation; I10 Essential (primary) hypertension; E78.5 Hyperlipidemia, unspecified; Z86.73 Personal history of transient ischemic attack (TIA), and cerebral infarction without residual deficits; Z79.899 Other long term (current) drug therapy
CPT/HCPCS: 33208; 33284; 36415; 71045; 80053; 80061; 85027; 85610; 85730; 87081; 93005

== ENCOUNTER 2017-12-04 08:54 | Emergency (ER) | payer MEDICARE, MEDICAID ==
[~2017-12-04] VITALS: Ht 168.9 cm; Wt 77.1 kg
[~2017-12-04 08:54] MED LIST changes: +CLIN300C11 PO; +POLY17PO6 PO; +TEMA15CA PO; +TRIM100T PO
--- OUTSIDE RECORDS SUMMARY | 2017-12-04 09:01 | XMS REPORT | Clinical Summary ---
Author Author [facility] Organization [facility] Address Unknown Phone Unavailable Care Team Providers Care Art Framing Manager Name Role Phone Martinez Soni MD PCP Source Comments Some departments are not documenting in the electronic medical record. If you do not see the information that you expected, contact Release of Information in the Health Information Management department at [phone] for further assistance in locating additional records.[facility] Allergies Active Allergy Reactions Severity Noted Date [...] meal and a full glass of water. temazepam (RESTORIL) 7.5 Take 7.5 mg by mouth at Active mg capsule bedtime as needed. Active Problems Problem Noted Date Rectal bleeding 10/29/2017 PAF (paroxysmal atrial fibrillation) ([facility]) 10/22/2017 Overview: 02/14/16 ECHO: normal LV size [...] ischemic attack) 10/22/2017 SSS (sick sinus syndrome) ([facility]) 10/22/2017 Aortic regurgitation Congestive heart failure (CHF) ([facility]) Hypothyroidism IBS (irritable bowel syndrome) Encounters Date Type Specialty Care Team Description 10/29/2017 Office Visit Cardiology Lukas Bland MD Atrial fibrillation (f/u) Lance Webb MD 10/29/2017 [facility] Cardiology Lance Webb MD Encounter 10/21/2017 Patient Profile Cardiology Caitie Trujillo New Patient ( PAF (paroxysmal atrial fibrillation) ([facility]) [I48.0]) 10/13/2017 Orders Only Cardiology Nelli Tamayo PAF (paroxysmal atrial fibrillation) ([facility]) (Primary Dx) from Last 3 Months Family [...] Results * ECG-SCAN (10/30/2017 4:00 PM) Narrative Performed At Ordered by an unspecified provider. * DEVICE EVALUATION - ILR (10/29/2017 2:53 PM) Generator Industrial Specialist [employer] OTHER OUTSIDE LAB Generator Model # REVEAL LINQ [id number] OTHER OUTSIDE LAB Generator Serial # [id number] OTHER OUTSIDE LAB Generator Implnat Date 04-Mar-2016 OTHER OUTSIDE LAB Generator Location Precordial OTHER OUTSIDE LAB Device Implanted By DR. HOLLINGSWORTH [phone] OTHER OUTSIDE LAB ILR Battery Status good OTHER OUTSIDE LAB ILR Symptom Lifetime 0 OTHER OUTSIDE LAB Events as of ILR Symptom Duration 4 7.5 mins each OTHER OUTSIDE LAB ILR Tachy Lifetime Events 0 OTHER OUTSIDE LAB as of ILR Tachy Rate 150 OTHER OUTSIDE LAB ILR Tachy Duration 16 OTHER OUTSIDE LAB ILR Pause Lifetime Events 7 OTHER OUTSIDE LAB as of ILR Pause Duration 3 OTHER OUTSIDE LAB ILR Toby Lifetime Events 0 OTHER OUTSIDE LAB as of ILR Toby Rate 30 OTHER OUTSIDE LAB ILR Toby Duration 4 OTHER OUTSIDE LAB ILR AT Events Since Last n/a OTHER OUTSIDE LAB Interrogation ILR AT Lifetime Events as n/a OTHER OUTSIDE LAB of ILR AF Lifetime Events as 21 OTHER OUTSIDE LAB of ILR AF Rate AF only OTHER OUTSIDE LAB ILR AF Duration all episodes OTHER OUTSIDE LAB ILR Percent Time in AT/AF <0.1 OTHER OUTSIDE LAB Lifetime of Events as of ILR Presenting ECG Strip SB 40's w/PACs OTHER OUTSIDE LAB EP Device Followed by DR. HOLLINGSWORTH [phone] OTHER OUTSIDE LAB Name ILR Lifetime Events as of 10/29/17 OTHER OUTSIDE LAB Datetion Device [place] [facility] OTHER OUTSIDE LAB Transmitter Compatible Known Diagnosed AFib Yes OTHER OUTSIDE LAB On Anticoagulation No OTHER OUTSIDE LAB On AntiCoag Date high risk (watchman work-up) OTHER OUTSIDE LAB Narrative Performed At OTHER OUTSIDE LAB clinic ILR check (please see attached PDF for >detail and EGMs) [10/29/2017 2:54:18 PM - JDAON CARVAJAL] Seeing Dr Webb today for watchman [...] needed. Routed to Dr Webb for review/co-sign. Performing Organization Address City/State/Zipcode Phone Number OTHER OUTSIDE LAB from Last 3 Months
--- OUTSIDE RECORDS SUMMARY | 2017-12-04 09:02 | XMS REPORT | Encounter Summary ---
Author Author [facility] Organization [facility] Address Unknown Phone Unavailable Care Team Providers Care Block Breaker Name Role Phone PCP Unavailable Reason for Visit * Reason Comments New Patient PAF (paroxysmal atrial fibrillation) ([facility]) [I48.0] Encounter Details Date Type Department Care Team Description 10/21/2017 Patient Profile [facility] Cardiology Terry Trujilloloraineharvey New Patient ([facility]F [facility] [id number] (paroxysmal atrial [address] fibrillation) ([facility]) [place] [address] [I48.0]) [phone] Social History Tobacco Use Types Packs/Day Years Used Date Never Smoker Smokeless Tobacco: Never Used Alcohol Use Drinks/Week oz/Week Comments No Sex Assigned at Date Recorded Not on file as of this encounter Progress Notes * RyTerry craneida - 10/21/2017 5:34 PM CDT Pt said 2pm device check will not work. She wants to cooridnate it to be on the day of her surgery. 10/21/17 * RyTerry craneida - 10/21/2017 5:34 PM CDT Pt has Medtronic LINQ Device * RyTerry craneida - 10/21/2017 5:34 PM CDT Spoke to patient. Pt could not hear me. She said she is hard of hearing and to call back when her home health is available. 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 HOLLINGSWORTH [phone] OTHER OUTSIDE LAB ILR Battery Status good [...] LAB EP Device Followed by DR. HOLLINGSWORTH [phone] OTHER OUTSIDE LAB Name ILR Lifetime Events as of 10/29/17 OTHER OUTSIDE LAB Datetion Device [place] [facility] OTHER OUTSIDE LAB Transmitter Compatible Known Diagnosed AFib Yes OTHER OUTSIDE LAB On Anticoagulation No OTHER OUTSIDE LAB On AntiCoag Date high risk (watchman work-up) OTHER OUTSIDE LAB Narrative Performed At OTHER OUTSIDE LAB [facility] ILR check (please see attached [...] Address City/State/Zipcode Phone Number OTHER OUTSIDE LAB in this encounter Visit Diagnoses Diagnosis PAF (paroxysmal atrial fibrillation) ([facility]) - Primary Atrial fibrillation Cardiac device in situ Unspecified cardiac device in situ Hypertension, unspecified type Hyperlipidemia, unspecified hyperlipidemia type Transient cerebral ischemia, unspecified type SSS (sick sinus syndrome) ([facility]) Sinoatrial node dysfunction
--- OUTSIDE RECORDS SUMMARY | 2017-12-04 09:02 | XMS REPORT | Encounter Summary ---
Author Author [facility] Organization [facility] Address Unknown Phone Unavailable Care Team Providers Care Vp Global Marketing [employer] Name Role Phone Martinez Soni MD PCP Reason for Referral * Status Reason Specialty Diagnoses / Referred By Referred To Procedures Contact Contact New Request Diagnoses Lance Webb PAF (paroxysmal MD atrial [address] fibrillation) [facility] ([facility]) [place] [address] rocedures Phone: FOLLOW UP PRN [phone] Reason for Visit * Reason Comments Atrial fibrillation f/u * Consult, Test & Treat (Routine) Status Reason Specialty Diagnoses / Referred By Referred To Procedures Contact Contact New Request Specialty Cardiology Diagnoses Lukas Bland [facility] PAF (paroxysmal MD [facility] Required atrial [id number] fibrillation) [address] [facility] ([facility]) [place] [address] Phone: Fax: Encounter Details Date Type Department Care Team Description 10/29/2017 Office Visit [facility] Cardiology Lukas Bland MD Atrial fibrillation (f/u) [place] [place] [address] [place] [address] [phone] Lance Adame MD [address] [place], [place] [id number] Social History Tobacco Use Types Packs/Day Years [...] us with any questions or concerns at [phone]. in this encounter Progress Notes * Lance Webb MD - 10/29/2017 2:45 PM CDT Formatting of this note may be different from the original. Date of Service: 10/29/2017 Aga Bautista is a 82 y.o. female. History of Present Illness: See Medical History/Course Below Ms. Aga Bautista is a very pleasant 82-year-old woman referred by Lukas Bland MD and Dr. Tamayo for consideration of left atrial appendage closure. She lives in [place], [place]. 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 She lives in an apartment and is accompanied by an aide. Her has been in a [facility] facility with a recent pneumonia and severe [...] Her first episodes were, by report, in 2016 or 2017 with apixaban. She had to [...] edema. She reports compliance with her CPAP. (DOC:[id number]) I reviewed and interpreted about 20 pages of outside documents. Impression: # Paroxysmal atrial fibrillation # s/p ILR Follows with Dr. Tamayo and Dr. Bland -BRGIN2GLCG of 6+ (age2, woman, HTN, TIA2) -- [...] many due to undersensing # Rectal bleeding ~7231-9711: Bleeding on apixaban, bled through pads -Late [...] of the pauses back then as well. (DOC:[id number]) Her heart rates are predominantly between 40 [...] us with any questions or concerns at [phone]. Medication List: acetaminophen (TYLENOL) 500 mg tablet [...] shows sinus rhythm with possible old inferior OH, cannot rule out prior anteroseptal OH, and possible left anterior fascicular block Vitals: [...] ischemic attack) 10/22/2017 SSS (sick sinus syndrome) ([facility]) 10/22/2017 Review of Systems Constitution: Positive for [...] Diagnoses Name Primary? PAF (paroxysmal atrial fibrillation) ([facility]) Yes Rectal bleeding Hypertension, unspecified type in this encounter Plan of Treatment Name Priority Associated Diagnoses Order Schedule ECG 12-LEAD Routine PAF (paroxysmal atrial Ordered: 10/29/2017 fibrillation) ([facility]) as of this encounter Procedures Procedure Name Priority Date/Time Associated Diagnosis Comments ECG-SCAN 10/30/2017 Results for this 4:00 PM CDT procedure are in the results section. in this encounter Results * ECG-SCAN (10/30/2017 4:00 PM) Narrative Performed At Ordered by an unspecified provider. in this encounter Visit Diagnoses Diagnosis PAF (paroxysmal atrial fibrillation) ([facility]) - Primary Atrial fibrillation Rectal bleeding Hemorrhage of rectum and anus Hypertension, unspecified type
--- OUTSIDE RECORDS SUMMARY | 2017-12-04 09:02 | XMS REPORT | Encounter Summary ---
Author Author [facility] Organization [facility] Address Unknown Phone Unavailable Care Team Providers Care Assistant Spa Director Name Role Phone PCP Unavailable Reason for Referral * Consult, Test & Treat (Routine) Status Reason Specialty Diagnoses / Referred By Referred To Procedures Contact Contact New Request Specialty Cardiology Diagnoses Lukas Bland [facility] Services PAF (paroxysmal R, MD [facility] Required atrial [address] [facility] fibrillation) [address] [facility] ([facility]) [place] [address] Phone: Fax: Encounter Details Date Type Department Care Team Description 10/13/2017 Orders Only MAC-REFERRAL Nelli Tamayo PAF (paroxysmal atrial fibrillation) ([facility]) (Primary Dx) Social History Tobacco Use Types Packs/Day Years Used Date Never Assessed Sex Assigned at Date Recorded Not on file as of this encounter Plan of Treatment Name Priority Associated Diagnoses Order Schedule AMB REFERRAL TO ADULT CARDIOLOGY Routine PAF (paroxysmal atrial Ordered : 10/13/2017 fibrillation) ([facility]) as of this encounter Visit Diagnoses Diagnosis PAF (paroxysmal atrial fibrillation) ([facility]) - Primary Atrial fibrillation
--- OUTSIDE RECORDS SUMMARY | 2017-12-04 09:02 | XMS REPORT | Encounter Summary ---
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 HOLLINGSWORTH [phone] OTHER OUTSIDE LAB ILR Battery Status good [...] LAB EP Device Followed by DR. HOLLINGSWORTH [phone] OTHER OUTSIDE LAB Name ILR Lifetime Events as of 10/29/17 OTHER OUTSIDE LAB Datetion Device [place] [facility] OTHER OUTSIDE LAB Transmitter Compatible Known Diagnosed AFib Yes OTHER OUTSIDE LAB On Anticoagulation No OTHER OUTSIDE LAB On AntiCoag Date high risk (watchman work-up) OTHER OUTSIDE LAB Narrative Performed At OTHER OUTSIDE LAB [facility] ILR check (please see attached PDF for [...]
[2017-12-04 11:19] LABS: BASOPHILS # (AUTO) 0.1 10^3/uL (0.0-0.1); BASOPHILS % (AUTO) 2 % (0-10); EOSINOPHILS # (AUTO) 0.4 10^3/uL (0.0-0.3); EOSINOPHILS % (AUTO) 7 % (0-10); HEMATOCRIT 37 % (35-52); HEMOGLOBIN 12.1 G/DL (11.5-16.0); LYMPHOCYTES # (AUTO) 1.2 X 10^3 (1.0-4.0); LYMPHOCYTES % (AUTO) 24 % (12-44); MEAN CORPUSCULAR HEMOGLOBIN 24 PG (25-34); MEAN CORPUSCULAR HGB CONC 32 G/DL (32-36); MEAN CORPUSCULAR VOLUME 74 FL (80-99); MEAN PLATELET VOLUME 9.9 FL (7.4-10.4); MONOCYTES # (AUTO) 0.5 X 10^3 (0.0-1.0); MONOCYTES % (AUTO) 11 % (0-12); NEUTROPHILS # (AUTO) 2.9 X 10^3 (1.8-7.8); NEUTROPHILS % (AUTO) 57 % (42-75); PLATELET COUNT 239 10^3/uL (130-400); RED BLOOD COUNT 5.03 10^6/uL (4.35-5.85); RED CELL DISTRIBUTION WIDTH 18.5 % (10.0-14.5)
[2017-12-04 11:34] LABS: CREATININE SERUM 1.01 MG/DL (0.60-1.30); POTASSIUM 4.5 MMOL/L (3.6-5.0)
[2017-12-04] MEDS ORDERED: CLIN300C11 PO (11:51)
[2017-12-04] MEDS ORDERED: LORA10TA7 PO (11:52)
--- NOTE | 2017-12-04 11:52 | Consultation-Cardiology ---
HPI-Cardiology Cardiology Consultation: Date of Consultation 12/04/17 Date of Admission Attending Physician Admitting Physician Martinez Soni DO Consulting Physician Iain GRANT MD HPI: Time Seen by Provider: 11:52 Chief Complaint: Pacemaker site erythema This is a 82-year-old lady with history of atrial fibrillation with lower GI bleeding, severe sinus node dysfunction requiring permanent pacemaker implantation which was done on 11/25/2017. She was discharged on clindamycin 300 mg 3 times a day for 5 days. She was seen in the office on when the previous dressing was removed the site was cleaned and she was discharged from the office. Yesterday she noticed some swelling and erythema. There was also itching. No fever. Review of Systems-Cardiology Review of Systems Constitutional: As described under HPI; No As described under HPI, No no symptoms reported, No chills, No fever, No lightheadedness Eyes: No As described under HPI, No no symptoms reported, No blindness, No blurred vision, No contact lenses, No drainage, No decreased acuity, No foreign body sensation, No pain, No vision change Ears/Nose/Throat: No As described under HPI, No no symptoms reported, No chronic hearing loss, No ear discharge, No ear pain, No nasal drainage, No ulcerations Respiratory: No no symptoms reported; As described under HPI; No As described under HPI, No cough, No orthopnea, No shortness of breath, No SOB with excertion Cardiovascular: No no symptoms reported; As described under HPI; No As described under HPI, No chest pain, No edema, No irregular heart rate, No lightheadedness, No palpitations; other (erythema left upper chest.) Gastrointestinal: No no symptoms reported, No As described under HPI, No abdomen distended, No abdominal pain, No blood streaked bowels, No constipation , No diarrhea, No nausea, No vomiting, No stool coloration changes Genitourinary: No As described under HPI, No burning, No dysuria, No discharge , No frequency, No flank pain, No hematuria, No urgency : Yes : No Musculoskeletal: No no symptoms reported, No As describe under HPI, No back pain, No gout, No joint pain, No joint swelling, No muscle pain, No muscle stiffness, No neck pain, No other Skin: No no symptoms reported, No As described under HPI, No change in color, No change in hair/nails, No dryness, No lesions, No lumps, No rash, No other, No skin related problems, No ulcerations, No rash on exposed areas, No ulcerations on exposed areas Psychiatric/Neurological: No no symptoms reported, No As described under HPI, No anxiety, No depression, No emotional problems, No headache, No numbness, No pre-existing deficit, No seizure, No tingling, No tremors, No weakness, No other , No focal weakness, No syncope Hematologic: No bleeding abnormalities [id number] Hx Patient Social History Alcohol Use: Denies Use Recreational Drug Use: No 2nd Hand Smoke Exposure: No Recent Foreign Travel: No Recent Infectious Disease Expo: No Hospitalization with Isolation: Denies Immunizations Up To Date Tetanus Booster (TDap): Less than 5yrs Date of Pneumonia Vaccine: October 03, 2016 Date of Influenza Vaccine: Feb 08, 2012 Past Medical History PMH As described under Assessment. Family Medical History Family History: Family history: Hypertension 03 FATHER, Onset:40's - 50 09 BROTHER, Onset:40's - 50 History of drug abuse 03 FATHER, Onset:20's - 25 Stroke 03 FATHER, Onset:60 years & older Allergies and Home Medications Allergies Coded Allergies: Penicillins (Verified Allergy, Unknown, 07/26/07) Shellfish (Verified Allergy, Unknown, 07/26/07) Sulfa (Sulfonamide Antibiotics) (Verified Allergy, Unknown, 07/26/07) azithromycin (Unverified Allergy, Unknown, ITCHING, 08/05/13) cephalexin (Verified Allergy, Unknown, 07/26/07) erythromycin base (Verified Allergy, Unknown, 07/26/07) furosemide (Verified Allergy, Unknown, 07/26/07) nitrofurantoin (Unverified Allergy, Unknown, ITCHING/"THICK TONGUE", ) tetracycline (Verified Allergy, Unknown, 07/26/07) Uncoded Allergies: TAPE (Allergy, Unknown, 07/26/07) Home Medications Acetaminophen 500 Mg Tablet, 500 MG PO BID PRN for PAIN-MILD, (Reported) Alprazolam 0.25 Mg Tablet, 0.25 MG PO Q8H PRN for ANXIETY, (Reported) Amiodarone HCl 200 Mg Tablet, 100 MG PO DAILY, (Reported) TAKES 1/2 (200MG) TABLET Amlodipine Besylate 5 Mg Tablet, 5 MG PO DAILY, (Reported) Clindamycin HCl 300 Mg Capsule, 300 MG PO TID Prescribed by: MIGUEL ÁNGEL DANIEL on 11/26/17 1001 Clindamycin HCl 300 Mg Capsule, 300 MG PO QID Prescribed by: DEVI KO on 12/04/17 1151 Cyanocobalamin 1,000 Mcg/Ml Inj, 1,000 MCG INJ MONTHLY, (Reported) Docusate Sodium 100 Mg Capsule, 100 MG PO DAILY PRN for CONSTIPATION-1ST LINE, ( Reported) Fexofenadine HCl 180 Mg Tablet, 180 MG PO DAILY PRN for ALLERGIES, (Reported) Irbesartan 300 Mg Tablet, 300 MG PO DAILY, (Reported) Latanoprost 2.5 Ml Drops, 1 DROP OU HS, (Reported) Levothyroxine Sodium 50 Mcg Tablet, 50 MCG PO DAILY, (Reported) Loratadine 10 Mg Tablet, 10 MG PO DAILY Prescribed by: DEVI KO on 12/04/17 1152 Montelukast Sodium 10 Mg Tablet, 10 MG PO DAILY, (Reported) Omeprazole 40 Mg Capsule.dr, 40 MG PO HS, (Reported) Polyethylene Glycol 3350 17 Gm Powd.pack, 17 GM PO HS, (Reported) Potassium Chloride 10 Meq Tab.er.prt, 10 MEQ PO DAILY, (Reported) Temazepam 15 Mg Capsule, 15 MG PO HS PRN for INSOMNIA, (Reported) Trimethoprim 100 Mg Tablet, 100 MG PO HS, (Reported) Patient Home Medication List Home Medication List Reviewed: Yes Physical Exam-Cardiology Physical Exam Vital Signs/I&O 12/04/17 12/04/17 09:49 12:25 Temp 97.6 98.1 Pulse 93 97 Resp 22 15 B/P (MAP) 151/100 (117) 142/96 Pulse Ox 99 O2 Delivery Room Air Room Air Capillary Refill : Less Than 3 Seconds Constitutional: No appears stated age, No AAO x 3, No apparent distress, No PERRL, No well-developed, No well-nourished, No other HEENT: PERRL; No normal ENT inspection, No TMs normal, No pharynx normal, No scleral icterus (R), No scleral icterus (L), No pale conjunctivae (R), No pale conjunctivae (L), No photophobia, No TM abnormal (R), No TM abnormal (L), No pharyngeal erythema, No tonsillar exudate, No other, No discharge, No EOMI; hearing is well preserved; No hard of hearing; oral hygience is good; No ulceration, No xanthelasmas are seen Neck: No non-tender, No full range of motion, No supple, No normal inspection, No carotid bruit, No limited range of motion, No lymphadenopathy (R), No lymphadenopathy (L), No tender lateral, No tender midline, No thyromegaly, No other; carotid pulses are 2 + bilaterally; No with good upstrokes Respiratory: No accessory muscle use, No respiratory distress, No chest tender , No chest expansion is symmetric; chest is bilaterally symmetric; No lungs clear to percussion; lungs clear to auscultation; No crackles, No rhonchi, No rales, No stridor, No wheezing, No pleural rub, No other Cardiovascular: regular rate-rhythm; No irregularly irregular, No extra beats, No parasternal heave is noted, No JVD, No edema, No bradycardia, No tachycardia , No point of maximal impulse, No cardiac thrills are palpable; S1 and S2; No gallop/S3, No gallop/S4, No diastolic murmur, No systolic murmur, No friction rub, No click, No other Gastrointestinal: No tender, No soft, No round, No distended, No pulsatile mass , No organomegaly, No guarding, No rebound, No tenderness, No hernia, No mass, No audible bowel sounds, No abnormal bowel sounds, No abdominal bruits, No spleenomegaly, No other Rectal: deferred Extremities: No normal range of motion, No non-tender, No normal inspection, No pedal edema, No calf tenderness, No normal capillary refill, No pelvis stable , No calf tenderness, No inflammation, No pedal edema, No slow capillary refill , No swelling, No other, No abrasion, No clubbing, No cyanosis, No ecchymosis, No laceration, No no lower extremity edema bilateral, No significant edema, No tenderness, No wound Neurologic/Psychiatric: no motor/sensory deficits, alert, normal mood/affect, oriented x 3, power is 5/5 both on sides Skin: No rash, No ulcerations; other (erythema left upper chest.) Data Review Labs Laboratory Tests 12/04/17 11:08: White Blood Count 5.0, Red Blood Count 5.03, Hemoglobin 12.1, Hematocrit 37, Mean Corpuscular Volume 74L, Mean Corpuscular Hemoglobin 24L, Mean Corpuscular Hemoglobin Concent 32, Red Cell Distribution Width 18.5H, Platelet Count 239, Mean Platelet Volume 9.9, Neutrophils (%) (Auto) 57, Lymphocytes (%) (Auto) 24, Monocytes (%) (Auto) 11, Eosinophils (%) (Auto) 7, Basophils (%) (Auto) 2, Neutrophils # (Auto) 2.9, Lymphocytes # (Auto) 1.2, Monocytes # (Auto) 0.5, Eosinophils # (Auto) 0.4H, Basophils # (Auto) 0.1, Sodium Level 141, Potassium Level 4.5, Chloride Level 109H, Carbon Dioxide Level 23, Anion Gap 9, Blood Urea Nitrogen 19H, Creatinine 1.01, Estimat Glomerular Filtration Rate 53, BUN/ Creatinine Ratio 19, Glucose Level 115H, Calcium Level 10.0, C-Reactive Protein High Sensitivity 0.40 ECG Impression ECG Initial ECG Rhythm: Normal Sinus A/P-Cardiology Assessment/Admission Diagnosis Severe sinus node dysfunction, status post permanent pacemaker, Atrial fibrillation, with GI bleeding, Erythema at the site of left upper chest. Plan Mild tenderness, erythema. Normal white count and CRP. Unlikely infection. However we will continue clindamycin for another week. Erythema is likely due to a reaction to either the dressing or iodine in the office. Patient in the office on Wednesday or Wednesday early next week. Thank you for your consultation. Please call me if you have any questions. Trudy Grant MD, FACP, FACC, FSCAI, FHRS, CCDS Interventional Cardiology Cardiac Electrophysiology Vascular Medicine and Endovascular Interventions Iain GRANT MD Dec 04, 2017 11:52
--- NOTE | 2017-12-04 11:52 | ED General ---
General Chief Complaint: General Problems/Pain Stated Complaint: LUMP BY PACE MAKER Nursing Triage Note: PT STATES SHE HAD PACEMAKER PUT IN ON NOVEMBER 25. PT NOW CONCERNED THERE IS A LUMP IN THE AREA OF THE INCISION AND WOULD LIKE TO BE CHECKED. PT STATES SHE JUST FINISHED CLINDAMYCIN. PT HAS NOT TAKEN BP MEDS TODAY. Nursing Sepsis Screen: No Definite Risk Source of Information: Patient Exam Limitations: No Limitations History of Present Illness Date Seen by Provider: Dec 04, 2017 Time Seen by Provider: 09:59 Initial Comments This 82-year-old woman presents to emergency room with concerns about her pacemaker insertion site. The pacemaker was placed November [address] Bland. She had the dressing removed on , December 02, 2 days ago. Yesterday she noticed increase swelling around the site and today noticed erythema. She did not notice any erythema prior to dressing be removed or when the dressing was removed. She reports significant pain at the site last night but today she primarily complains of itching. She is afebrile. There is mild tenderness around the site. Allergies and Home Medications Allergies Coded Allergies: Penicillins (Verified Allergy, Unknown, 07/26/07) Shellfish (Verified Allergy, Unknown, 07/26/07) Sulfa (Sulfonamide Antibiotics) (Verified Allergy, Unknown, 07/26/07) azithromycin (Unverified Allergy, Unknown, ITCHING, 08/05/13) cephalexin (Verified Allergy, Unknown, 07/26/07) erythromycin base (Verified Allergy, Unknown, 07/26/07) furosemide (Verified Allergy, Unknown, 07/26/07) nitrofurantoin (Unverified Allergy, Unknown, ITCHING/"THICK TONGUE", ) tetracycline (Verified Allergy, Unknown, 07/26/07) Uncoded Allergies: TAPE (Allergy, Unknown, 07/26/07) Home Medications Acetaminophen 500 Mg Tablet, 500 MG PO BID PRN for PAIN-MILD, (Reported) Alprazolam 0.25 Mg Tablet, 0.25 MG PO Q8H PRN for ANXIETY, (Reported) Amiodarone HCl 200 Mg Tablet, 100 MG PO DAILY, (Reported) TAKES 1/2 (200MG) TABLET Amlodipine Besylate 5 Mg Tablet, 5 MG PO DAILY, (Reported) Clindamycin HCl 300 Mg Capsule, 300 MG PO TID Prescribed by: MIGUEL ÁNGEL DANIEL on 11/26/17 1001 Clindamycin HCl 300 Mg Capsule, 300 MG PO QID Prescribed by: DEVI KO on 12/04/17 1151 Cyanocobalamin 1,000 Mcg/Ml Inj, 1,000 MCG INJ MONTHLY, (Reported) Docusate Sodium 100 Mg Capsule, 100 MG PO DAILY PRN for CONSTIPATION-1ST LINE, ( Reported) Fexofenadine HCl 180 Mg Tablet, 180 MG PO DAILY PRN for ALLERGIES, (Reported) Irbesartan 300 Mg Tablet, 300 MG PO DAILY, (Reported) Latanoprost 2.5 Ml Drops, 1 DROP OU HS, (Reported) Levothyroxine Sodium 50 Mcg Tablet, 50 MCG PO DAILY, (Reported) Loratadine 10 Mg Tablet, 10 MG PO DAILY Prescribed by: DEVI KO on 12/04/17 1152 Montelukast Sodium 10 Mg Tablet, 10 MG PO DAILY, (Reported) Omeprazole 40 Mg Capsule.dr, 40 MG PO HS, (Reported) Polyethylene Glycol 3350 17 Gm Powd.pack, 17 GM PO HS, (Reported) Potassium Chloride 10 Meq Tab.er.prt, 10 MEQ PO DAILY, (Reported) Temazepam 15 Mg Capsule, 15 MG PO HS PRN for INSOMNIA, (Reported) Trimethoprim 100 Mg Tablet, 100 MG PO HS, (Reported) Patient Home Medication List Home Medication List Reviewed: Yes Review of Systems Constitutional: no symptoms reported EENTM: no symptoms reported Respiratory: no symptoms reported Cardiovascular: see HPI Gastrointestinal: no symptoms reported Genitourinary: no symptoms reported Musculoskeletal: no symptoms reported Skin: see HPI Psychiatric/Neurological: No Symptoms Reported Hematologic/Lymphatic: No Symptoms Reported Past [id number] Hx Past Med/Social Hx: Reviewed and Corrections made Patient Social History Alcohol Use: Denies Use Recreational Drug Use: No 2nd Hand Smoke Exposure: No Recent Foreign Travel: No Contact w/Someone Who Travel: No Recent Infectious Disease Expo: No Recent Hopitalizations: No Physical Abuse: No Sexual Abuse: No Immunizations Up To Date Tetanus Booster (TDap): Less than 5yrs PED Vaccines UTD: No Date of Pneumonia Vaccine: October 03, 2016 Date of Influenza Vaccine: Feb 08, 2012 Seasonal Allergies Seasonal Allergies: Yes Past Medical History Surgeries: Yes (JUDE JENKINS) Abdominal, Appendectomy, Cardiac, Gallbladder, Hysterectomy, Pacemaker, Rectal, Thyroidectomy, Tonsillectomy Respiratory: Yes Asthma, Sleep Apnea Currently Using CPAP: Yes Currently Using BIPAP: No Cardiac: Yes (SINUS NODE DYSFUNCTION) Atrial Fibrillation, Cardiomyopathy, Chronic Edema/Swelling, Coronary Artery Disease, Hypertension Neurological: No : No 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 Disorders: No 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 Genitourinary: Yes Bladder Infection Gastrointestinal: Yes Gastrointestinal Bleed, Hemorrhoids, Irritable Bowel Musculoskeletal: Yes (OSTEOARTHRITIS, FX RIGHT LOWER LEG, DISLOCATED RIGHT SHOULDER) Osteoporosis, Arthritis, Fractures Endocrine: Yes (THYROIDECTOMY; DIET CONTROLLED DIABETES) Hypothyroidsim, Diabetes, Non-Insulin dep HEENT: Yes Glaucoma Hearing Impairment: Hard of Hearing Cancer: No Psychosocial: Yes Anxiety, Depression Nursing Suicide Risk Score: 0 Integumentary: No Blood Disorders: Yes (ANEMIA) Adverse Reaction/Blood Tranf: No Family Medical History Family history: Hypertension 03 FATHER, Onset:40's - 50 09 BROTHER, Onset:40's - 50 History of drug abuse 03 FATHER, Onset:20's - 25 Stroke 03 FATHER, Onset:60 years & older No Pertinent Family Hx Physical Exam Vital Signs Vital Signs - First Documented 12/04/17 12/04/17 09:49 12:25 Temp 97.6 Pulse 93 Resp 22 B/P (MAP) 151/100 (117) Pulse Ox 99 O2 Delivery Room Air Capillary Refill : Less Than 3 Seconds Height, Weight, BMI Height: 5'6.50" Weight: 170lbs. 0.0oz. [id number]; 27.0 BMI Method:Stated General Appearance: No Apparent Distress, WD/WN HEENT: Normal ENT Inspection Neck: Normal Inspection Respiratory: Lungs Clear, Normal Breath Sounds, No Accessory Muscle Use, No Respiratory Distress Cardiovascular: No Edema, No Murmur, Irregularly Irregular Extremity: Normal Inspection Neurologic/Psychiatric: Alert, Oriented x3, No Motor/Sensory Deficits, Normal Mood/Affect, development rep II-XII Norm as Tested Skin: Warm/Dry, Other (pacemaker incision clean, dry, and intact. There is erythema that appears to be in the distribution of a dressing. This erythema is blanching. The area inferior to the incision is tender to palpation. The incision area is raised. The erythematous portions of skin are warmer than surrounding skin.) Progress/Results/Core Measures Suspected Sepsis Recent Fever Within 48 Hours: No Infection Criteria Present: None New/Unexplained Altered Menta: No Sepsis Screen: No Definite Risk SIRS Temperature:97.6 Pulse: 93 Respiratory Rate: 22 Laboratory Tests 12/04/17 11:08: White Blood Count 5.0 Blood Pressure 151 /100 Mean: 117 Laboratory Tests 12/04/17 11:08: Creatinine 1.01, Platelet Count 239 Results/Orders Lab Results Laboratory Tests Test 12/04/17 11:08 Range/Units White Blood Count 5.0 4.3-11.0 10^3/uL Red Blood Count 5.03 4.35-5.85 10^6/uL Hemoglobin 12.1 11.5-16.0 G/DL Hematocrit 37 35-52 % Mean Corpuscular Volume 74 L 80-99 FL Mean Corpuscular Hemoglobin 24 L 25-34 PG Mean Corpuscular Hemoglobin Concent 32 32-36 G/DL Red Cell Distribution Width 18.5 H 10.0-14.5 % Platelet Count 239 130-400 10^3/uL Mean Platelet Volume 9.9 7.4-10.4 FL Neutrophils (%) (Auto) 57 42-75 % Lymphocytes (%) (Auto) 24 12-44 % Monocytes (%) (Auto) 11 0-12 % Eosinophils (%) (Auto) 7 0-10 % Basophils (%) (Auto) 2 0-10 % Neutrophils # (Auto) 2.9 1.8-7.8 X 10^3 Lymphocytes # (Auto) 1.2 1.0-4.0 X 10^3 Monocytes # (Auto) 0.5 0.0-1.0 X 10^3 Eosinophils # (Auto) 0.4 H 0.0-0.3 10^3/uL Basophils # (Auto) 0.1 0.0-0.1 10^3/uL Sodium Level 141 135-145 MMOL/L Potassium Level 4.5 3.6-5.0 MMOL/L Chloride Level 109 H 98-107 MMOL/L Carbon Dioxide Level 23 21-32 MMOL/L Anion Gap 9 5-14 MMOL/L Blood Urea Nitrogen 19 H 7-18 MG/DL Creatinine 1.01 0.60-1.30 MG/DL Estimat Glomerular Filtration Rate 53 BUN/Creatinine Ratio 19 Glucose Level 115 H 70-105 MG/DL Calcium Level 10.0 8.5-10.1 MG/DL C-Reactive Protein High Sensitivity 0.40 0.00-0.50 MG/DL My Orders Orders - DEVI BERGERON MD Basic Metabolic Panel (12/04/17 10:45) Cbc With Automated Diff (12/04/17 10:45) Hs C Reactive Protein (12/04/17 10:45) Saline Lock/Iv-Start (12/04/17 10:45) Vital Signs/I&O 12/04/17 12/04/17 09:49 12:25 Temp 97.6 98.1 Pulse 93 97 Resp 22 15 B/P (MAP) 151/100 (117) 142/96 Pulse Ox 99 O2 Delivery Room Air Room Air Capillary Refill : Less Than 3 Seconds Blood Pressure Mean: 117 Progress Note : Progress Note The wound area was assessed by a bedside ultrasound. There was a thin fluid collection beneath the incision of undetermined significance. Case was discussed with Dr. Bland who recommended lab evaluation. In the meantime, he presented to the ER to evaluate the patient. He recommended extended antibiotic therapy for another week. Labs were reviewed while he was in the ER. WBC and CRP were normal suggesting no bacterial infection. The erythema and swelling is more likely secondary to a contact dermatitis. In addition to extending out antibiotic therapy, patient was advised to take an antihistamine. She does take Renetta as needed at home and can either continue or take Claritin. Return precautions were discussed with patient and included in the discharge instructions. Dr. Bland plans to see her in follow-up in the clinic next week. See discharge instructions. Departure Impression Primary Impression: Contact dermatitis Qualified Codes: L25.9 - Unspecified contact dermatitis, unspecified cause Additional Impression: Postoperative pain Disposition: 01 HOME, SELF-CARE Condition: Improved Departure-Patient Inst. Decision time for Depature: 11:40 Referrals: ESTHER DANIELLE DO (PCP/Family) Primary Care Physician Patient Instructions: Cellulitis (Skin Infection), Adult (DC), Contact Dermatitis (DC) Add. Discharge Instructions: Take your antibiotics as prescribed. Follow-up with Dr. Bland early next week for reexamination. Do not put any dressings or topical medicines on your pacemaker site. Leave open to air. Return to the emergency room or call Dr. Bland if you have worsening symptoms such as spreading redness, increasing pain, increasing swelling, or development of fever over 100. Take a Claritin (loratadine) 10 mg daily for at least one week. This may be purchased [id number]. All discharge instructions reviewed with patient and/or family. Voiced understanding. Scripts Loratadine (Loratadine) 10 Mg Tablet 10 MG PO DAILY, #14 TAB Prov: DEVI BERGERON MD 12/04/17 Clindamycin HCl (Clindamycin HCl) 300 Mg Capsule 300 MG PO QID, #28 CAP Prov: DEVI BERGERON MD 12/04/17 Copy Copies To 1: Iain BLAND MD Copies To 2: ESTHER DANIELLE JOSHUA T MD Dec 04, 2017 11:52
[2017-12-04 12:25] VITALS: BP 142/96
== END 2017-12-04 12:01 | disposition home or self-care (01) ==
LOC: EDUNIT# 08:54 → ER 08:57
DX: L25.9 Unspecified contact dermatitis, unspecified cause (principal); G89.18 Other acute postprocedural pain; J45.909 Unspecified asthma, uncomplicated; G47.30 Sleep apnea, unspecified; I48.91 Unspecified atrial fibrillation; I25.10 Atherosclerotic heart disease of native coronary artery without angina pectoris; I10 Essential (primary) hypertension; K21.9 Gastro-esophageal reflux disease without esophagitis; E11.9 Type 2 diabetes mellitus without complications; F41.9 Anxiety disorder, unspecified; F32.9 Major depressive disorder, single episode, unspecified; D64.9 Anemia, unspecified; E03.9 Hypothyroidism, unspecified; M81.0 Age-related osteoporosis without current pathological fracture; Z87.19 Personal history of other diseases of the digestive system; Z87.448 Personal history of other diseases of urinary system; Z95.0 Presence of cardiac pacemaker; Z98.890 Other specified postprocedural states; Z88.0 Allergy status to penicillin; Z88.2 Allergy status to sulfonamides; Z88.1 Allergy status to other antibiotic agents; Z88.8 Allergy status to other drugs, medicaments and biological substances; Z91.048 Other nonmedicinal substance allergy status; Z90.89 Acquired absence of other organs; Z90.710 Acquired absence of both cervix and uterus
CPT/HCPCS: 36415; 80048; 85025; 86141

== ENCOUNTER → 2017-12-08 | Outpatient (CLI) | payer MEDICARE, MEDICAID ==
[~2017-12-08] MED LIST changes: +LORA10TA7 PO
== END ==
LOC: RT 09:29
PROVIDERS: ATTEND Internal Medicine
DX: Z01.811 Encounter for preprocedural respiratory examination (principal); R06.00 Dyspnea, unspecified
CPT/HCPCS: 94060; 94726; 94729

== ENCOUNTER → 2017-12-13 | Outpatient (CLI) | payer MEDICARE, MEDICAID | LOC: CARD 09:11 | PROVIDERS: ATTEND Internal Medicine Interventional Cardiology | DX: I50.9 Heart failure, unspecified (principal); I48.0 Paroxysmal atrial fibrillation; I49.5 Sick sinus syndrome; T82.7XXA Infection and inflammatory reaction due to other cardiac and vascular devices, implants and grafts, initial encounter; I08.3 Combined rheumatic disorders of mitral, aortic and tricuspid valves | CPT/HCPCS: 93306 ==

== ENCOUNTER 2018-02-27 16:00 | Emergency (ER) | payer MEDICAID, MEDICARE ==
[~2018-02-27] VITALS: Ht 167.6 cm; Wt 74.8 kg
[~2018-02-27 16:00] MED LIST changes: -AMLO5TAB2 PO; +AMLO5TAB7 PO
--- OUTSIDE RECORDS SUMMARY | 2018-02-27 16:07 | XMS REPORT | Clinical Summary ---
Author Author [facility] Organization [facility] Address Unknown Phone Unavailable Care Team Providers Care Physician Practice Coordinator Name Role Phone Martinez Soni MD PCP Lukas Bland MD Unavailable Source Comments Some departments are not documenting in the electronic medical record. If you do not see the information that you expected, contact Release of Information in the Health Information Management department at [phone] for further assistance in locating additional records.[facility] Allergies Active Allergy Reactions Severity Noted Date Comments Milo Inhibitors UNKNOWN Low 10/21/2017 Adhesive Tape (Rosins) UNKNOWN Low 10/21/2017 Arb-Angiotensin Receptor UNKNOWN Low 10/21/2017 Antagonist Beta-Blockers UNKNOWN Low 10/21/2017 (Beta-Adrenergic Blocking Agts) Bumetanide UNKNOWN Low 10/21/2017 Erythromycin UNKNOWN Low 12/15/2017 Hydrochlorothiazide STOMACH UPSET Low 10/21/2017 Cephalexin UNKNOWN Low 10/21/2017 Furosemide UNKNOWN Low 10/21/2017 Nitrofurantoin ITCHING, SEE COMMENTS Low 12/15/2017 Thick tongue Macrocrystalline Penicillins UNKNOWN Low 10/21/2017 Seafood UNKNOWN Low 10/21/2017 Shellfish Containing UNKNOWN Low 12/15/2017 Products Sulfa (Sulfonamide UNKNOWN Low 10/21/2017 Antibiotics) Tetracycline UNKNOWN Low 10/21/2017 Azithromycin ITCHING Low 10/21/2017 Current Medications Prescription Sig. Disp. Refills Start End Date Status Date amLODIPine (NORVASC) 5 mg Take 5 mg by mouth daily. Active tablet docusate (COLACE) 100 mg Take 100 mg by mouth as Active capsule Needed for Constipation. montelukast (SINGULAIR) Take 10 mg by mouth Active 10 mg tablet daily. levothyroxine (SYNTHROID) Take 50 mcg by mouth Active 50 mcg tablet daily 30 minutes before breakfast. acetaminophen (TYLENOL) Take 500 mg by mouth Active 500 mg tablet twice daily as needed for Pain. Max of 4,000 mg of acetaminophen in 24 hours. ALPRAZolam (XANAX) 0.25 Take 0.25 mg by mouth Active mg tablet every 8 hours as needed for Anxiety. trimethoprim (TRIMPEX) Take 100 mg by mouth at Active 100 mg tablet bedtime daily. potassium chloride SR Take 10 mEq by mouth Active (K-DUR) 10 mEq tablet daily. Take with a meal and a full glass of water. cyanocobalamin (VITAMIN Inject 1,000 mcg/mL to Active B-12, RUBRAMIN) 1,000 area(s) as directed every mcg/mL injection 30 days. polyethylene glycol 3350 Take 17 g by mouth at Active (GLYCOLAX; MIRALAX) 17 bedtime as needed. gram/dose powder amiodarone (CORDARONE) Take 100 mg by mouth Active 200 mg tablet daily. Take with food. temazepam (RESTORIL) 15 Take 15 mg by mouth at Active mg capsule bedtime as needed for Sleep. omeprazole DR(+) Take 40 mg by mouth at Active (PRILOSEC) 40 mg capsule bedtime daily. latanoprost (XALATAN) Apply 1 drop to both eyes Active 0.005 % ophthalmic at bedtime daily. solution traMADol (ULTRAM) 50 mg Take one tablet by mouth 20 tablet 0 12/21/19 Active tablet every 6 hours as needed. 18 chlorpheniramine maleate Take 2 mg by mouth as Active (CHLOR-TRIMETON ALLERGY Needed. 12 HOUR PO) fexofenadine(+) (VIRY) Take 180 mg by mouth 02/01/20 Discontin 180 mg tablet daily as needed. 18 ued Active Problems Problem Noted Date History of GI bleed 12/20/2017 Acute cystitis without hematuria 12/20/2017 Paroxysmal atrial fibrillation (HCC) 12/15/2017 Cardiac pacemaker 11/25/2017 Rectal bleeding 10/29/2017 PAF (paroxysmal atrial fibrillation) (HCC) 10/22/2017 Overview: 02/14/16 ECHO: normal LV size [...] ischemic attack) 10/22/2017 SSS (sick sinus syndrome) (HCC) 10/22/2017 S/P laparoscopic fundoplication 05/10/2005 Overview: 2/2 GERD Aortic regurgitation Congestive heart failure (CHF) (HCC) Hypothyroidism IBS (irritable bowel syndrome) Diabetes mellitus (HCC) GERD (gastroesophageal reflux disease) H/O hemorrhoids Encounters Date Type Specialty Care Team Description 01/31/2018 [facility] Radiology Akil Clay PA-C Encounter 01/31/2018 Office Visit Cardiothoracic Surgery Vidal Longo MD Atrial fibrillation, unspecified type (HCC) (Primary Dx) 12/21/2017 Telephone Cardiothoracic Surgery Fili Chew RN Post- hospital Follow Up 12/20/2017 Pharmacy Visit 12/20/2017 Pharmacy Visit 12/20/2017 Pharmacy Visit 12/17/2017 Pharmacy Visit 12/16/2017 [facility] Cardiology Vidal Longo MD Encounter 12/16/2017 [facility] Vidal Longo MD Paroxysmal atrial - Encounter fibrillation (HCC) 12/20/2017 12/16/2017 Procedure Pass 12/16/2017 Surgery Vidal Longo MD PERCUTANEOUS CLOSURE LEFT ATRIAL APPENDAGE WITH ENDOCARDIAL IMPLANT (AtriClip and LORENA) Left video-assisted thoracoscopic surgery 12/15/2017 [facility] Radiology Vidal Longo MD Encounter 12/15/2017 PAC Office Anesthesiology Vidal Longo MD Aortic valve Visit insufficiency, etiology of cardiac valve disease unspecified; Atrial fibrillation, unspecified type (HCC) 12/15/2017 Anesthesia Bina Edwards MD Event 12/14/2017 Prep for Case Cardiothoracic Surgery Lisy Fry APRN Atrial fibrillation, unspecified type (HCC) (Primary Dx) 12/14/2017 Pre-Admit Anesthesiology Vidal Longo MD Atrial fibrillation, Orders Only unspecified type (HCC) (Primary Dx) 12/06/2017 Office Visit Cardiothoracic Surgery Doctor, Miscellaneous PAF (paroxysmal atrial Vidal Longo MD fibrillation) (HCC) (Primary Dx); Transient cerebral ischemia, unspecified type; Rectal bleeding; H/O hemorrhoids; SSS (sick sinus syndrome) ([facility]); Cardiac pacemaker; Preop cardiovascular exam; S/P laparoscopic fundoplication; Aortic valve insufficiency, etiology of cardiac valve disease unspecified; Type 2 diabetes mellitus with complication, without long-term current use of insulin ([facility]) from Last 3 Months Family History Medical History Relation Name Comments Cirrhosis Father Hypertension Father Stroke Father Mental Illness Mother Stroke Mother Relation Name Status Comments Father (Age 79) Mother (Age 64ish) Social History Tobacco Use Types Packs/Day Years Used Date Never Smoker Smokeless Tobacco: Never Used Alcohol Use Drinks/Week oz/Week Comments No Sex Assigned at Date Recorded Not on file Last Filed Vital Signs Vital Sign Reading Time Taken Blood Pressure 112/78 01/31/2018 11:34 AM CDT Pulse 76 01/31/2018 11:34 AM CDT Temperature 36.8 C (98.2 F) 12/20/2017 10:48 AM CDT Respiratory Rate - - Oxygen Saturation 98% 01/31/2018 11:34 AM CDT Inhaled Oxygen - - Concentration Weight 79.2 kg (174 lb 11.2 oz) 01/31/2018 11:34 AM CDT Height 167.6 cm (5' 5.98") 01/31/2018 11:34 AM CDT Body Mass Index 28.21 01/31/2018 11:34 AM CDT Plan of Treatment Health Maintenance Due Date Last Done Comments PHYSICAL (COMPREHENSIVE) 01/02/1944 EXAM PERTUSSIS VACCINE 01/02/1948 TETANUS VACCINE 1954 DILATED EYE EXAM 1955 FOOT EXAM 1955 HBA1C 1955 SHINGLES RECOMBINANT 1987 VACCINE (1 of 2) OSTEOPOROSIS SCREENING 2002 PNEUMONIA (PCV13/PPSV23) 2002 VACCINES (1 of 2 - PCV13) INFLUENZA VACCINE 12/08/2017 02/14/2016 Implants Implanted Type Area Rattle Leak And Squeak Repairer Device Expiration Model / Identifier Date Serial / Lot Atriclip 45mm Pro2 Ling Exclusion Left: ATRICURE 08/08/2020 [id number] / System [employer]-Yonas - Sna Heart NA / Implanted: Qty: 1 on 12/16/2017 by [id number] Vidal Longo MD Procedures Procedure Name Priority Date/Time Associated Diagnosis Comments CHEST 2 VIEWS Routine 01/31/2018 Atrial fibrillation (HCC) Results for this 11:41 AM CDT History of GI bleed procedure are in the results section. ECG-SCAN 12/21/2017 Results for this 1:13 PM CDT procedure are in the results section. TELEMETRY STRIPS-SCAN 12/21/2017 Results for this 12:52 PM CDT procedure are in the results section. CHEST SINGLE VIEW Routine 12/20/2017 Results for this 6:08 AM CDT procedure are in the results section. BASIC METABOLIC PANEL Routine 12/20/2017 Results for this 4:28 AM CDT procedure are in the results section. CBC Routine 12/20/2017 Results for this 4:28 AM CDT procedure are in the results section. CHEST SINGLE VIEW STAT 12/19/2017 Results for this 12:17 PM CDT procedure are in the results section. CHEST SINGLE VIEW Routine 12/19/2017 Results for this 6:10 AM CDT procedure are in the results section. BASIC METABOLIC PANEL Routine 12/19/2017 Results for this 4:18 AM CDT procedure are in the results section. CBC Routine 12/19/2017 Results for this 4:18 AM CDT procedure are in the results section. CHEST SINGLE VIEW STAT 12/18/2017 Results for this 8:42 AM CDT procedure are in the results section. CHEST 2 VIEWS Routine 12/17/2017 Results for this 7:10 AM CDT procedure are in the results section. BASIC METABOLIC PANEL Routine 12/17/2017 Results for this 4:24 AM CDT procedure are in the results section. CBC Routine 12/17/2017 Results for this 4:24 AM CDT procedure are in the results section. CHEST SINGLE VIEW STAT 12/16/2017 Results for this 2:25 PM CDT procedure are in the results section. ANESTHESIA Routine 12/16/2017 TRANSEESOPHAGEAL 2:16 PM CDT ECHOCARDIOGRAM Procedure Note - Enrike Castro MD - 12/16/2017 2:16 PM CDT Anesthesi a Procedure: Transesoph ageal Echocardio gram LORENA Date/Time: 12/16/2017 12:30 PM Preproced ure checklist performed: 2 patient identifier s, risks & benefits discussed, patient evaluated, timeout performed, consent obtained and patient being monitored Staff Anesthesio logist: ENRIKE CASTRO Surgeon: VIDAL LONGO Performed personally Indicatio n for LORENA: assessment of surgical repair, hemodynami c monitoring and confirmati on of pre-proced ure diagnosis Physician requesting echo: VIDAL LONGO CPT codes: 99942 - LORENA 2D imaging (w or w/o M-mode) including probe placement, image acquisitio n, interpreta tion & report, 64482 - Color flow velocity mapping and 30458 - PWD and/or CWD f/u or limited study Patient location: OR Intubated: yes Bite block: no Heart visualized : yes Insertion: easy Probe type: multiplane Modalities : 2D, color flow mapping, 3D and pulse wave Doppler Additiona l notes: This is a limited echocardio graphic assessment for a placement of a left atrial appendage clip. Prior to clip placement there were no signs of clot in the LING based on 2d, X-plane, and 3d visualizat ion. The LING measured around 1.7cm at the inlet, and was about 2cm in length. After clip placement there was a small remnant of the LING measuring around 0.4cm. There did not appear to be any significan t flow on CFD in the remnant. These findings were communicat ed with Dr. Longo and Dr. De Luna at the time of surgery. Performed by: ENRIKE CASTRO Authorized by: ENRIKE CASTRO CHEST SINGLE VIEW STAT 12/16/2017 Results for this 1:31 PM CDT procedure are in the results section. POC GLUCOSE 12/16/2017 Results for this 1:29 PM CDT procedure are in the results section. ANESTHESIA ARTERIAL LINE Routine 12/16/2017 Results for this INSERTION 10:16 AM CDT procedure are in the results section. DEVICE EVALUATION - PPM STAT 12/16/2017 Results for this 9:45 AM CDT procedure are in the results section. BLOOD TYPE CONFIRMATION - STAT 12/16/2017 Aortic valve Results for this ORDER ONLY IF REQUESTED 9:09 AM CDT insufficiency, etiology procedure are in the BY LAB of cardiac valve disease results section. unspecified POC GLUCOSE 12/16/2017 Results for this 9:08 AM CDT procedure are in the results section. UA REFLEX CULTURE LABEL STAT 12/16/2017 Results for this 8:48 AM CDT procedure are in the results section. URINALYSIS MICROSCOPIC STAT 12/16/2017 Results for this REFLEX TO CULTURE 8:48 AM CDT procedure are in the results section. URINALYSIS DIPSTICK STAT 12/16/2017 Results for this REFLEX TO CULTURE 8:48 AM CDT procedure are in the results section. CULTURE-URINE 12/16/2017 Results for this W/SENSITIVITY 8:48 AM CDT procedure are in the results section. CHEST 2 VIEWS STAT 12/15/2017 Atrial fibrillation, Results for this 3:21 PM CDT unspecified type (HCC) procedure are in the results section. TYPE & CROSSMATCH STAT 12/15/2017 Atrial fibrillation, Results for this 1:50 PM CDT unspecified type (HCC) procedure are in the results section. PTT (APTT) STAT 12/15/2017 Atrial fibrillation, Results for this 1:50 PM CDT unspecified type (HCC) procedure are in the results section. PROTIME INR (PT) STAT 12/15/2017 Atrial fibrillation, Results for this 1:50 PM CDT unspecified type (HCC) procedure are in the results section. COMPREHENSIVE METABOLIC STAT 12/15/2017 Atrial fibrillation, Results for this PANEL 1:50 PM CDT unspecified type (HCC) procedure are in the results section. CBC STAT 12/15/2017 Atrial fibrillation, Results for this 1:50 PM CDT unspecified type (HCC) procedure are in the results section. CARDIAC CATH REPORT Routine 12/15/2017 Atrial fibrillation, 8:29 AM CDT unspecified type (HCC) from Last 3 Months Results * CHEST 2 VIEWS (01/31/2018 11:41 AM) Only the most recent of 3 results within the time period is included. Impressions Performed At Stable chest radiograph demonstrating no acute cardiopulmonary abnormalities. [facility] Finalized by Brannon Steward M.D. on 01/31/2018 12:19 PM. Dictated by Brannon Steward M.D. on 01/31/2018 12:17 PM. Narrative Performed At CHEST 2 VIEWS [facility] History: s/p L VAT, Atriclip placement. Cardiac arrhythmia Technique: PA and lateral views of the chest were obtained. Comparison: Comparison is made to an examination of 12/20/2017. Findings: The heart remains at the upper limits normal in size. There is no evidence of acute vascular congestion or pulmonary edema. Dual-chamber pacemaker with its control unit left chest wall is unchanged in position. The atrial appendage clip also remains in place. No acute interstitial or alveolar opacities are identified. No pleural effusions are detected. No pneumothorax is seen. There is unchanged elevation of the left hemidiaphragm as compared to the right. There is persistent gaseous distention of the splenic flexure. Procedure Note Interface, Radiant Results - 01/31/2018 12:22 PM CDT CHEST 2 VIEWS History: s/p L VAT, Atriclip placement. Cardiac arrhythmia Technique: PA and lateral views of the chest were obtained. Comparison: Comparison is made to an examination of 12/20/2017. Findings: The heart remains at the upper limits normal in size. There is no evidence of acute vascular congestion or pulmonary edema. Dual-chamber pacemaker with its control unit left chest wall is unchanged in position. The atrial appendage clip also remains in place. No acute interstitial or alveolar opacities are identified. No pleural effusions are detected. No pneumothorax is seen. There is unchanged elevation of the left hemidiaphragm as compared to the right. There is persistent gaseous distention of the splenic flexure. IMPRESSION Stable chest radiograph demonstrating no acute cardiopulmonary abnormalities. Finalized by Brannon Steward M.D. on 01/31/2018 12:19 PM. Dictated by Brannon Steward M.D. on 01/31/2018 12:17 PM. Performing Organization Address City/State/Zipcode Phone Number [facility] * ECG-SCAN (12/21/2017 1:13 PM) Narrative Performed At Ordered by an unspecified provider. * TELEMETRY STRIPS-SCAN (12/21/2017 12:52 PM) Narrative Performed At Ordered by an unspecified provider. * CHEST SINGLE VIEW (12/20/2017 6:08 AM) Only the most recent of 6 results within the time period is included. Impressions Performed At Stable mild cardiomegaly with mild left lower lung atelectasis. [facility] Approved by Wong Ross M.D. on 12/20/2017 10:37 AM By my electronic signature, I attest that I have personally reviewed the images for this examination and formulated the interpretations and opinions expressed in this report Finalized by Brannon Steward M.D. on 12/20/2017 11:22 AM. Dictated by Wong Ross M.D. on 12/20/2017 9:48 AM. Narrative Performed At CHEST SINGLE VIEW [facility] Clinical history: Atelectasis Comparison: Chest x-ray December 19, 2017 Findings: Left chest wall cardiac conduction device and leads are in stable position. Prior atrial appendage clipping. The heart is mildly enlarged with ectasia and tortuosity of the thoracic aorta. Pulmonary vasculature is within normal limits. Mild left lower lung atelectasis. No pleural effusion, focal consolidation, or pneumothorax is identified. Persistent gaseous distention of loops of bowel in the upper abdomen. Curvilinear calcification is visualized in the left upper abdomen which may represent a peripherally calcified splenic artery aneurysm. Procedure Note Interface, Radiant Results - 12/20/2017 11:26 AM CDT CHEST SINGLE VIEW Clinical history: Atelectasis Comparison: Chest x-ray December 19, 2017 Findings: Left chest wall cardiac conduction device and leads are in stable position. Prior atrial appendage clipping. The heart is mildly enlarged with ectasia and tortuosity of the thoracic aorta. Pulmonary vasculature is within normal limits. Mild left lower lung atelectasis. No pleural effusion, focal consolidation, or pneumothorax is identified. Persistent gaseous distention of loops of bowel in the upper abdomen. Curvilinear calcification is visualized in the left upper abdomen which may represent a peripherally calcified splenic artery aneurysm. IMPRESSION Stable mild cardiomegaly with mild left lower lung atelectasis. Approved by Wong Ross M.D. on 12/20/2017 10:37 AM By my electronic signature, I attest that I have personally reviewed the images for this examination and formulated the interpretations and opinions expressed in this report Finalized by Brannon Steward M.D. on 12/20/2017 11:22 AM. Dictated by Wong Ross M.D. on 12/20/2017 9:48 AM. Performing Organization Address City/State/Zipcode Phone Number [facility] * CBC (12/20/2017 4:28 AM) Only the most recent of 4 results within the time period is included. White Blood Cells 7.3 4.5 - 11.0 K/UL [facility] RBC 4.46 4.0 - 5.0 M/UL [facility] Hemoglobin 10.5 (L) 12.0 - 15.0 GM/DL [facility] Hematocrit 32.5 (L) 36 - 45 % [facility] MCV 73.0 (L) 80 - 100 [place] [facility] MCH 23.5 (L) 26 - 34 [place] [facility] MCHC 32.2 32.0 - 36.0 G/DL MAIN LAB RDW 18.6 (H) 11 - 15 % [facility] Platelet Count 258 150 - 400 K/UL [facility] MPV 7.9 7 - 11 [place] [facility] Specimen Blood Performing Organization Address City/[facility] Phone Number [facility] [address] [place] [address] * BASIC METABOLIC PANEL (12/20/2017 4:28 AM) Only the most recent of 3 results within the time period is included. Sodium 135 (L) 137 - 147 MMOL/L MAIN LAB Potassium 3.8 3.5 - 5.1 MMOL/L [facility] LAB Chloride 105 98 - 110 MMOL/L [facility] CO2 23 21 - 30 MMOL/L [facility] Anion Gap 7 3 - 12 [facility] LAB Glucose 125 (H) 70 - 100 MG/DL [facility] Blood Urea Nitrogen 18 7 - 25 MG/DL [facility] Creatinine 1.04 (H) 0.4 - 1.00 MG/DL [facility] Calcium 9.2 8.5 - 10.6 MG/DL [facility] eGFR Non 51 (L) >60 mL/min [facility] Comment: The eGFR is not validated for use in drug dosing adjustments.Continue to use estimated creatinine clearance per dosing reference text.Please contact the Clinical Pharmacist for questions. eGFR >60 >60 mL/min [facility] Comment: The eGFR is not validated for use in drug dosing adjustments.Continue to use estimated creatinine clearance per dosing reference text.Please contact the Clinical Pharmacist for questions. Specimen Blood Performing Organization Address City/[facility]/Zipcode Phone Number [facility] [address] [place] [address] * POC GLUCOSE (12/16/2017 1:29 PM) Only the most recent of 2 results within the time period is included. Glucose, POC 128 (H) 70 - 100 MG/DL MAIN LAB Performing Organization Address City/[facility]/Zipcode Phone Number [facility] [address] [place] [address] * ANESTHESIA ARTERIAL LINE INSERTION (12/16/2017 10:16 AM) Narrative Performed At Parker Disla MD 12/16/2017 11:12 AM Anesthesia Procedure: Arterial Line Placement A-LINE INSERTION Date/Time: 12/16/2017 10:13 AM Patient location: OR Indications: hemodynamic monitoring Preprocedure checklist performed: 2 patient identifiers, risks & benefits discussed, patient evaluated, timeout performed, consent obtained and patient being monitored Arterial Line Procedure Patient sedated: no Artery prepped with chlorhexidine; skin prep agent completely dried prior to procedure. Location: radial artery Laterality: right Technique: palpation Needle gauge: 20 G Number of attempts: 2 (x1 VERENICE Bell, x1 Dr Disla) Procedure Outcome Catheter secured with adhesive dressing applied Events: no complications noted during insertion and skin intact, warm, and dry Observation: pt tolerated well Additional notes: Proper hand washing cap, mask, clean gloves, skin prep ATTESTATION I personally performed the procedure myself. Staff name:Christophe Disla MD Date:12/16/2017 Performed by: MAKENNA TEMPLE Authorized by: PARKER DISLA Procedure Note Parker Disla MD - 12/16/2017 10:16 AM CDT Anesthesia Procedure: Arterial Line Placement A-LINE INSERTION Date/Time: 12/16/2017 10:13 AM Patient location: OR Indications: hemodynamic monitoring Preprocedure checklist performed: 2 patient identifiers, risks & benefits discussed, patient evaluated, timeout performed, consent obtained and patient being monitored Arterial Line Procedure Patient sedated: no Artery prepped with chlorhexidine; skin prep agent completely dried prior to procedure. Location: radial artery Laterality: right Technique: palpation Needle gauge: 20 G Number of attempts: 2 (x1 VERENICE Bell, x1 Dr Disla) Procedure Outcome Catheter secured with adhesive dressing applied Events: no complications noted during insertion and skin intact, warm, and dry Observation: pt tolerated well Additional notes: Proper hand washing cap, mask, clean gloves, skin prep ATTESTATION I personally performed the procedure myself. 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 Bland [id number] OTHER OUTSIDE LAB ILR Symptom Duration 4 7.5 mins each OTHER OUTSIDE LAB ILR Tachy Rate 150 OTHER OUTSIDE LAB ILR Tachy Duration 16 OTHER OUTSIDE LAB ILR Pause Duration 3 OTHER OUTSIDE LAB ILR Toby Rate 30 OTHER OUTSIDE LAB ILR Toby Duration 4 OTHER OUTSIDE LAB ILR AT Events Since Last n/a OTHER OUTSIDE LAB Interrogation ILR AT Lifetime Events as n/a OTHER OUTSIDE LAB of ILR AF Rate AF only OTHER OUTSIDE LAB ILR AF Duration all episodes OTHER OUTSIDE LAB EP Device Followed by DR. HOLLINGSWORTH [phone] OTHER OUTSIDE LAB Name Device [facility] OTHER OUTSIDE LAB Transmitter Compatible Known Diagnosed AFib Yes OTHER OUTSIDE LAB On Anticoagulation No OTHER OUTSIDE LAB On AntiCoag Date high risk (watchman work-up) OTHER OUTSIDE LAB Device Mode AAIR<=>DDDR OTHER OUTSIDE LAB Mode Switch Status On OTHER OUTSIDE LAB Lower Rate Limit 60 OTHER OUTSIDE LAB Mode Switch (bpm) >171 OTHER OUTSIDE LAB Atrial Lead Rattle Leak And Squeak Repairer [employer] OTHER OUTSIDE LAB Atrial Lead Model # 4076 CapSureFix Novus 45cm OTHER OUTSIDE LAB Atrial Lead Serial # [id number] OTHER OUTSIDE LAB Atrial Lead Implant Date 25-Nov-2017 OTHER OUTSIDE LAB RV Lead Rattle Leak And Squeak Repairer [employer]onic OTHER OUTSIDE LAB RV Lead Model # 5076 CapSureFix Novus 52cm OTHER OUTSIDE LAB RV Lead Serial # [id number] OTHER OUTSIDE LAB RV Lead Implant Date 25-Nov-2017 OTHER OUTSIDE LAB Underlying Rhythm SR 65bpm OTHER OUTSIDE LAB Upper Rate Limit 130 OTHER OUTSIDE LAB Sensor Rate Limit 130 OTHER OUTSIDE LAB Pace AV Delay 180 OTHER OUTSIDE LAB Sense AV Delay 150 OTHER OUTSIDE LAB -VS% 2.6 OTHER OUTSIDE LAB -SAP ENTERPRISE PORTAL CONSULTANT% 0.3 OTHER OUTSIDE LAB -VS% 84.2 OTHER OUTSIDE LAB AP-SAP ENTERPRISE PORTAL CONSULTANT% 12.8 OTHER OUTSIDE LAB # Mode S. Events 0 OTHER OUTSIDE LAB # High AT/AF Evts 0 OTHER OUTSIDE LAB Single PVSc 5.4 per hour OTHER OUTSIDE LAB PVC runs 0.3 per hour OTHER OUTSIDE LAB A Sense mv 1.1 OTHER OUTSIDE LAB A Capture V 0.75 OTHER OUTSIDE LAB A Capture ms 0.4 OTHER OUTSIDE LAB A Lead ohms 361 OTHER OUTSIDE LAB RV Sense mv 6.4 OTHER OUTSIDE LAB RV Capture V 0.75 OTHER OUTSIDE LAB RV Capture ms 0.4 OTHER OUTSIDE LAB RV Lead ohms 513 OTHER OUTSIDE LAB Counters Clrd Yes OTHER OUTSIDE LAB Saved to Disc Yes OTHER OUTSIDE LAB Device Function WNL Yes OTHER OUTSIDE LAB Device Reprogram Yes OTHER OUTSIDE LAB Device Type DDD-PM OTHER OUTSIDE LAB Ao Voltage 3.5 OTHER OUTSIDE LAB AO Pulse Width 0.4 OTHER OUTSIDE LAB RV Voltage 3.5 OTHER OUTSIDE LAB RV Pulse Width 0.4 OTHER OUTSIDE LAB # High V Events 0 OTHER OUTSIDE LAB Estimated Longevity 9.8yrs OTHER OUTSIDE LAB High V Rate Detect >150 OTHER OUTSIDE LAB Pacemaker Dependant No OTHER OUTSIDE LAB Programming? Yes OTHER OUTSIDE LAB Date of Last Programming 12/16/17 OTHER OUTSIDE LAB Interrogation? Yes OTHER OUTSIDE LAB Date of Last 12/16/17 OTHER OUTSIDE LAB Interrogation HF Patient No OTHER OUTSIDE LAB Remote Monitoring? No OTHER OUTSIDE LAB EP Device Followed By Other OTHER OUTSIDE LAB Narrative Performed At OTHER OUTSIDE LAB Pre-op device evaluation in CVPP full check (please see attached PDF for >detail and EGMs) [12/16/2017 9:46:38 AM - JADON CARVAJAL] Dual chamber pacemaker programming. Presenting EGM shows YARITZA/-VS ~97bpm (forced A pacing with frequent PACs) Since 26-Nov-2017 Lead trends and battery stable ~9.8yrs remaining. Device appears to be functioning as programmed. AT/AF burden 0% 13.1% Vpaced Events noted: Atrial:none Ventricular:none Programming changes: -atrial preference pacing OFF( noted increased atrial ectopy with A pacing YARITZA rate~97bpm initally on interrogation and SR 65bpm with YARITZA OFF) Full report with EGMs and testing uploaded for more detailed review as needed (see attached) Routed to Dr Rios on service for EP for review/co-sign (report left at bedside w/RN in CVPP). Performing Organization Address City/State/Zipcode Phone Number OTHER OUTSIDE LAB * BLOOD TYPE CONFIRMATION - ORDER ONLY IF REQUESTED BY LAB (12/16/2017 9:09 AM) ABO/RH(D) O POS [facility] Specimen Blood Performing Organization Address [facility] Phone Number [facility] [address] [place] [address] * UA REFLEX CULTURE LABEL (12/16/2017 8:48 AM) UA Reflex Culture LAB LABEL [facility] Specimen Urine Performing Organization Address [facility] Phone Number [facility] [address] [place] [address] * URINALYSIS MICROSCOPIC REFLEX TO CULTURE (12/16/2017 8:48 AM) WBCs,UA 20-50 0 - 2 /HPF [facility] RBCs,UA 2-10 0 - 3 /HPF [facility] Comment,UA Urine submitted for reflex [facility] culture if criteria are met:WBC>10, positive nitrite and/or >=1+ leukocyte esterase. If quantity is not sufficient, an addendum will follow. MucousUA 4+ [facility] Bacteria,UA FEW (A) NEG-NEG [facility] Squamous Epithelial Cells 10-20 0 - 5 [facility] Hyaline Cast PACKED [facility] Renal Epitheilial 0-2 [facility] Specimen Urine Performing Organization Address [facility] Phone Number [facility] [address] [place] [address] * URINALYSIS DIPSTICK REFLEX TO CULTURE (12/16/2017 8:48 AM) Color,UA BRADY [facility] Turbidity,UA 2+ (A) CLEAR-CLEAR [facility] Specific [place]-Urine 1.021 1.003 - 1.035 [facility] pH,UA 5.0 5.0 - 8.0 [facility] Protein,UA 1+ (A) NEG-NEG [facility] Glucose,UA NEG NEG-NEG [facility] Ketones,UA NEG NEG-NEG [facility] Bilirubin,UA NEG NEG-NEG [facility] Blood,UA NEG NEG-NEG [facility] Urobilinogen,UA INCREASED (A) NORM-NORMAL [facility] Nitrite,UA NEG NEG-NEG [facility] Leukocytes,UA 3+ (A) NEG-NEG [facility] Urine Ascorbic Acid, UA NEG NEG-NEG MAIN LAB Specimen Urine Performing Organization Address [facility] Phone Number MAIN LAB [address] [place] [address] * CULTURE-URINE W/SENSITIVITY (12/16/2017 8:48 AM) Battery Name URINE CULTURE MAIN LAB Specimen Description URINE MAIN LAB Special Requests NONE MAIN LAB Culture >100,000 organisms/ml MAIN LAB LACTOBACILLUS SPECIES <10,000 organisms/ml MIXED CONTAMINANTS Report Status FINAL MAIN LAB 12/17/2017 Specimen Urine Performing Organization Address [facility] Phone Number MAIN LAB [address] [place] [address] * PTT (APTT) (12/15/2017 1:50 PM) APTT 29.2 21.0 - 39.0 SEC MAIN LAB Specimen Blood Performing Organization Address [facility] Phone Number MAIN LAB [address] [place] [address] * PROTIME INR (PT) (12/15/2017 1:50 PM) INR 1.1 0.8 - 1.2 MAIN LAB Specimen Blood Performing Organization Address [facility] Phone Number MAIN LAB [address] [place] [address] * TYPE & CROSSMATCH (12/15/2017 1:50 PM) Units Ordered 0 MAIN LAB Crossmatch Expires 12/18/2017 MAIN LAB Record Check 2ND TYPE REQUIRED MAIN LAB ABO/RH(D) O POS MAIN LAB Antibody Screen NEG MAIN LAB Electronic Crossmatch YES MAIN LAB Specimen Blood Performing Organization Address [facility] Phone Number MAIN LAB [address] [place] [address] * COMPREHENSIVE METABOLIC PANEL (12/15/2017 1:50 PM) Sodium 139 137 - 147 MMOL/L MAIN LAB Potassium 3.9 3.5 - 5.1 MMOL/L MAIN LAB Chloride 108 98 - 110 MMOL/L MAIN LAB Glucose 145 (H) 70 - 100 MG/DL MAIN LAB Blood Urea Nitrogen 17 7 - 25 MG/DL MAIN LAB Creatinine 1.15 (H) 0.4 - 1.00 MG/DL [facility] Calcium 9.9 8.5 - 10.6 MG/DL [facility] Total Protein 7.6 6.0 - 8.0 G/DL [facility] Total Bilirubin 0.7 0.3 - 1.2 MG/DL [facility] Albumin 4.2 3.5 - 5.0 G/DL [facility] Alk Phosphatase 106 25 - 110 U/L [facility] AST (SGOT) 13 7 - 40 U/L [facility] CO2 23 21 - 30 MMOL/L [facility] ALT (SGPT) 6 (L) 7 - 56 U/L [facility] Anion Gap 8 3 - 12 [facility] eGFR Non 45 (L) >60 mL/min [facility] Comment: The eGFR is not validated for use in drug dosing adjustments.Continue to use estimated creatinine clearance per dosing reference text.Please contact the Clinical Pharmacist for questions. eGFR 55 (L) >60 mL/min [facility] Comment: The eGFR is not validated for use in drug dosing adjustments.Continue to use estimated creatinine clearance per dosing reference text.Please contact the Clinical Pharmacist for questions. Specimen Blood Performing Organization Address City/State/Zipcode Phone Number [facility] [address] [place] [address] from Last 3 Months
--- OUTSIDE RECORDS SUMMARY | 2018-02-27 16:08 | XMS REPORT | Encounter Summary ---
Author Author [facility] Organization [facility] Address Unknown Phone Unavailable Care Team Providers Care Plane Tender Name Role Phone Martinez Soni MD PCP Lukas Bland MD Unavailable Encounter Details Date Type Department Care Team Description 12/20/2017 Pharmacy Visit [facility] [address] [place] [address] Social History Tobacco Use Types Packs/Day Years Used Date Never Smoker Smokeless Tobacco: Never Used Alcohol Use Drinks/Week oz/Week Comments No Sex Assigned at Date Recorded Not on file as of this encounter Functional Status Functional Status Response Date of Assessment Does the patient have a hearing impairment: Yes 12/16/2017 as of this encounter Plan of Treatment Not on fileas of this encounter Visit Diagnoses Not on filein this encounter
--- OUTSIDE RECORDS SUMMARY | 2018-02-27 16:08 | XMS REPORT | Encounter Summary ---
Author Author [facility] Organization [facility] Address Unknown Phone Unavailable Care Team Providers Care Clinical Rehabilitation Coordinator Name Role Phone Martinez Soni MD PCP Lukas Bland MD Unavailable Reason for Visit * Reason Comments Post Operative Visit Post Op Atriclip Encounter Details Date Type Department Care Team Description 01/31/2018 Office Visit [facility] Vidal Longo MD Atrial fibrillation, Cardiovascular Surgeons [address] [facility] unspecified type [facility]HCC[facility] [address] [facility] [address] [place] [address] [place] [address] [phone] Social History Tobacco Use Types Packs/Day Years Used Date Never Smoker Smokeless Tobacco: Never Used Alcohol Use Drinks/Week oz/Week Comments No Sex Assigned at Date Recorded Not on file as of this encounter Last Filed Vital Signs Vital Sign Reading Time Taken Blood Pressure 112/78 01/31/2018 11:34 AM CDT Pulse 76 01/31/2018 11:34 AM CDT Temperature - - Respiratory Rate - - Oxygen Saturation 98% 01/31/2018 11:34 AM CDT Inhaled Oxygen - - Concentration Weight 79.2 kg (174 lb 11.2 oz) 01/31/2018 11:34 AM CDT Height 167.6 cm (5' 5.98") 01/31/2018 11:34 AM CDT Body Mass Index 28.21 01/31/2018 11:34 AM CDT in this encounter Functional Status Functional Status Response Date of Assessment Does the patient have a hearing impairment: Yes 12/16/2017 as of this encounter Progress Notes * Vidal Longo MD - 01/31/2018 1:30 PM CDT Formatting of this note may be different from the original. Date of Service: 01/31/2018 Subjective: Aga Bautista is a 83 y.o. female. History of Present Illness Today we had the pleasure of seeing your patient, Aga Bautista, in our office for routine postop follow up after left video assisted thoracoscopy and implantation of 45mm atrial clip device performed by Dr. Vidal Longo on . She was placed on Levaquin for a preoperative UTI. She had a borderline blood pressure and her ARB was held at discharge. Since discharge Aga Bautista states she has been doing well. She has been walking daily. She denies any fevers or drainage from her incisions. She does have some left rib discomfort which she states she often has dislocated ribs and this feels similar. She has seen her PCP as well as her primary spinning bath patroller. Chest xray performed today revealed no significant effusion or pneumothorax. Review of Systems Constitution: Negative. HENT: Positive for congestion. Eyes: Negative. Cardiovascular: Positive for dyspnea on exertion and irregular heartbeat. Respiratory: Positive for cough and shortness of breath. Endocrine: Positive for cold intolerance. Hematologic/Lymphatic: Negative. Skin: Positive for nail changes. Musculoskeletal: Positive for arthritis and joint pain. Gastrointestinal: Positive for bloating, constipation and heartburn. Genitourinary: Positive for frequency. Neurological: Positive for excessive daytime sleepiness, light-headedness and paresthesias. Psychiatric/Behavioral: The patient has insomnia. Objective: acetaminophen (TYLENOL) 500 mg tablet Take 500 mg by mouth twice daily as needed for Pain. Max of 4,000 mg of acetaminophen in 24 hours. ALPRAZolam (XANAX) 0.25 mg tablet Take 0.25 mg by mouth every 8 hours as needed for Anxiety. amiodarone (CORDARONE) 200 mg tablet Take 100 mg by mouth daily. Take with food. amLODIPine (NORVASC) 5 mg tablet Take 5 mg by mouth daily. chlorpheniramine maleate (CHLOR-TRIMETON ALLERGY 12 HOUR PO) Take 2 mg by mouth as Needed. cyanocobalamin (VITAMIN B-12, RUBRAMIN) 1,000 mcg/mL injection Inject 1,000 mcg/mL to area(s) as directed every 30 days. docusate (COLACE) 100 mg capsule Take 100 mg by mouth as Needed for Constipation. latanoprost (XALATAN) 0.005 % ophthalmic solution Apply 1 drop to both eyes at bedtime daily. levothyroxine (SYNTHROID) 50 mcg tablet Take 50 mcg by mouth daily 30 minutes before breakfast. montelukast (SINGULAIR) 10 mg tablet Take 10 mg by mouth daily. omeprazole DR(+) (PRILOSEC) 40 mg capsule Take 40 mg by mouth at bedtime daily. polyethylene glycol 3350 (GLYCOLAX; MIRALAX) 17 gram/dose powder Take 17 g by mouth at bedtime as needed. potassium chloride SR (K-DUR) 10 mEq tablet Take 10 mEq by mouth daily. Take with a meal and a full glass of water. temazepam (RESTORIL) 15 mg capsule Take 15 mg by mouth at bedtime as needed for Sleep. traMADol (ULTRAM) 50 mg tablet Take one tablet by mouth every 6 hours as needed. trimethoprim (TRIMPEX) 100 mg tablet Take 100 mg by mouth at bedtime daily. Vitals: 01/31/18 1134 BP: 112/78 Pulse: 76 SpO2: 98% Weight: 79.2 kg (174 lb 11.2 oz) Height: 1.676 m (5' 5.98") Body mass index is 28.21 kg/m. Physical Exam Constitutional: She is oriented to person, place, and time. She appears well- developed and well-nourished. HENT: Head: Normocephalic and atraumatic. Eyes: Pupils are equal, round, and reactive to light. Conjunctivae and EOM are normal. Neck: Normal range of motion. Neck supple. Cardiovascular: Normal rate. Pulmonary/Chest: Effort normal. Abdominal: Soft. Bowel sounds are normal. Musculoskeletal: Normal range of motion. Neurological: She is alert and oriented to person, place, and time. Skin: Skin is warm and dry. left lateral chest incisions x 2 C/D/I without erythema or drainage. Psychiatric: She has a normal mood and affect. Her behavior is normal. Judgment and thought content normal. No further surgical follow up is warranted at this time. CAMERON Pollock 01/31/18 @ 1410. Assessment and Plan: I performed a history and physical examination of the patient and discussed his management with the midlevel provider. I reviewed the midlevel provider note and agree with the documented findings and plan of care. This patient has recovered very well after her atrial clip minimally invasive procedure. She had no complaints today. I will dismiss this patient to your care, but in the meantime if you have questions or concerns, please do not hesitate to call me. Thank you again very much for the opportunity to care for this delightful patient. Sincerely, Vidal Longo MD Cardiovascular and Thoracic Surgery [place], [place] [email or web address] in this encounter Plan of Treatment Not on fileas of this encounter Visit Diagnoses Diagnosis Atrial fibrillation, unspecified type (HCC) - Primary
--- OUTSIDE RECORDS SUMMARY | 2018-02-27 16:08 | XMS REPORT | Encounter Summary ---
Author Author [facility] Organization [facility] Address Unknown Phone Unavailable Care Team Providers Care Carbon Paper Coating Supervisor Name Role Phone Martinez Soni MD PCP Lukas Bland MD Unavailable Reason for Visit * Reason Comments Post-hospital Follow Up Encounter Details Date Type Department Care Team Description 12/21/2017 Telephone [facility] Fili Chew RN Post- hospital Follow Up Cardiovascular Surgeons [place] [address] [address] [place] [address] Social History Tobacco Use Types Packs/Day Years Used Date Never Smoker Smokeless Tobacco: Never Used Alcohol Use Drinks/Week oz/Week Comments No Sex Assigned at Date Recorded Not on file as of this encounter Functional Status Functional Status Response Date of Assessment Does the patient have a hearing impairment: Yes 12/16/2017 as of this encounter Miscellaneous Notes * Telephone Encounter - Fili Chew RN - 12/21/2017 10:42 AM CDT Patient Discharge Date: 12/20 Surgeon: [place] Surgery: Kostas)VATS, Atriclip Patient called office with questions about her post-operative appointments. Spoke with patient regarding status post-discharge. She states she is doing well. She reports she has not yet checked her home vitals, however she plans to check them after this call, and her values "were pretty good yesterday". She states her incisions are CDI. She ambulated around her facility this AM and tolerated that well. She is seeing her hair designer on 12/31, and has been in contact with her PCP regarding a f/u apt in 1-2 weeks. Patient denies any issues /questions at this time. in this encounter Plan of Treatment Not on fileas of this encounter Visit Diagnoses Not on filein this encounter
--- OUTSIDE RECORDS SUMMARY | 2018-02-27 16:08 | XMS REPORT | Encounter Summary ---
Author Author [facility] Organization [facility] Address Unknown Phone Unavailable Care Team Providers Care Forestry Conservation Worker Name Role Phone Martinez Soni MD PCP Lukas Bland MD Unavailable Encounter Details Date Type Department Care Team Description 01/31/2018 [facility] Akil Clay PA-C Encounter Hospital Radiology [address] [facility] [address] [place] [address] [place] [address] [phone] Social History Tobacco Use Types Packs/Day Years Used Date Never Smoker Smokeless Tobacco: Never Used Alcohol Use Drinks/Week oz/Week Comments No Sex Assigned at Date Recorded Not on file as of this encounter Functional Status Functional Status Response Date of Assessment Does the patient have a hearing impairment: Yes 12/16/2017 as of this encounter Medications at Time of Discharge Medication Sig. Disp. Refills Start Date End Date acetaminophen (TYLENOL) Take 500 mg by mouth 500 mg tablet twice daily as needed for Pain. Max of 4,000 mg of acetaminophen in 24 hours. ALPRAZolam (XANAX) 0.25 Take 0.25 mg by mouth mg tablet every 8 hours as needed for Anxiety. amiodarone (CORDARONE) Take 100 mg by mouth 200 mg tablet daily. Take with food. amLODIPine (NORVASC) 5 mg Take 5 mg by mouth daily. tablet chlorpheniramine maleate Take 2 mg by mouth as (CHLOR-TRIMETON ALLERGY Needed. 12 HOUR PO) cyanocobalamin (VITAMIN Inject 1,000 mcg/mL to B-12, RUBRAMIN) 1,000 area(s) as directed every mcg/mL injection 30 days. docusate (COLACE) 100 mg Take 100 mg by mouth as capsule Needed for Constipation. latanoprost (XALATAN) Apply 1 drop to both eyes 0.005 % ophthalmic at bedtime daily. solution levothyroxine (SYNTHROID) Take 50 mcg by mouth 50 mcg tablet daily 30 minutes before breakfast. montelukast (SINGULAIR) Take 10 mg by mouth 10 mg tablet daily. omeprazole DR(+) Take 40 mg by mouth at (PRILOSEC) 40 mg capsule bedtime daily. polyethylene glycol 3350 Take 17 g by mouth at (GLYCOLAX; MIRALAX) 17 bedtime as needed. gram/dose powder potassium chloride SR Take 10 mEq by mouth (K-DUR) 10 mEq tablet daily. Take with a meal and a full glass of water. temazepam (RESTORIL) 15 Take 15 mg by mouth at mg capsule bedtime as needed for Sleep. traMADol (ULTRAM) 50 mg Take one tablet by mouth 20 tablet 0 2017 tablet every 6 hours as needed. trimethoprim (TRIMPEX) Take 100 mg by mouth at 100 mg tablet bedtime daily. as of this encounter Plan of Treatment Not on fileas of this encounter Procedures Procedure Name Priority Date/Time Associated Diagnosis Comments CHEST 2 VIEWS Routine 01/31/2018 Atrial fibrillation (HCC) Results for this 11:41 AM CDT History of GI bleed procedure are in the results section. in this encounter Results * CHEST 2 VIEWS (01/31/2018 11:41 AM) Impressions Performed At Stable chest radiograph demonstrating [...] no acute cardiopulmonary abnormalities. Finalized by Brannon Setward M.D. on 01/31/2018 12:19 PM. Dictated by Brannon Steward M.D. on 01/31/2018 12:17 PM. Performing Organization Address City/State/Zipcode Phone Number [facility] RESULTS in this encounter Visit Diagnoses Diagnosis Atrial fibrillation (HCC) Atrial fibrillation History of GI bleed Personal history of other diseases of digestive system
--- OUTSIDE RECORDS SUMMARY | 2018-02-27 16:08 | XMS REPORT | Encounter Summary ---
Author Author [facility] Organization [facility] Address Unknown Phone Unavailable Care Team Providers Care Electroplating Technician Name Role Phone Martinez Soni MD PCP Lukas Bland MD Unavailable Encounter Details Date Type Department Care Team Description 12/20/2017 Pharmacy Visit [place] [address] Social History Tobacco Use Types Packs/Day Years [...]
--- OUTSIDE RECORDS SUMMARY | 2018-02-27 16:08 | XMS REPORT | Encounter Summary ---
Author Author [facility] Organization [facility] Address Unknown Phone Unavailable Care Team Providers Care Wide Area Network Administrator Name Role Phone Martinez Soni MD PCP Lukas Bland MD Unavailable Encounter Details Date Type Department Care Team Description 12/20/2017 Pharmacy Visit [facility] [address] [place] [address] Social History Tobacco Use Types Packs/Day Years [...]
--- OUTSIDE RECORDS SUMMARY | 2018-02-27 16:09 | XMS REPORT | Encounter Summary ---
Author Author [facility] Organization [facility] Address Unknown Phone Unavailable Care Team Providers Care Foundry Tender Name Role Phone Martinez Soni MD PCP Lukas Bland MD Unavailable Reason for Visit * Auth/Cert Status Reason Specialty Diagnoses / Referred By Referred To Procedures Contact Contact Diagnoses Atrial fibrillation, unspecified type (HCC) Atrial fibrillation, unspecified type (HCC) [I48.91] P rocedures ME PERQ CLSR TCAT L ATR APNDGE W/ENDOCARDIAL IMPLNT PERCUTANEOUS CLOSURE LEFT ATRIAL APPENDAGE WITH ENDOCARDIAL IMPLANT (AtriClip and LORENA) Left video-assisted thoracoscopic surgery Encounter Details Date Type Department Care Team Description 12/16/2017 [facility] Cardiovascular Medicine Vidal Longo MD Encounter Main [facility] [place] [address] [place] [address] [phone] Social History Tobacco Use Types Packs/Day Years [...] mg by mouth daily. tablet cyanocobalamin (VITAMIN Inject 1,000 mcg/mL to B-12, [...] mouth at 100 mg tablet bedtime daily. aspirin 325 mg tablet Take one tablet by mouth 90 tablet 3 12/20/2017 12/20/2017 daily. Take with food. fexofenadine(+) (VIRY) Take 180 mg by mouth 01/31/2018 180 mg tablet daily as needed. irbesartan (AVAPRO) 300 Take 300 mg by mouth 12/20/2017 mg tablet daily. as of this encounter Plan of Treatment Not on fileas of this encounter Procedures Procedure Name Priority Date/Time Associated Diagnosis Comments DEVICE EVALUATION - [facility] STAT 12/16/2017 Results for this 9:45 AM CDT procedure are in the results section. in this encounter Visit Diagnoses Not on filein this encounter
--- OUTSIDE RECORDS SUMMARY | 2018-02-27 16:09 | XMS REPORT | Encounter Summary ---
Author Author [facility] Organization [facility] Address Unknown Phone Unavailable Care Team Providers Care Debone Processing Supervisor Name Role Phone Martinez Soni MD PCP Lukas Bland MD Unavailable Encounter Details Date Type Department Care Team Description 12/16/2017 Procedure Pass Cardiovascular Operating Room [address] [place] [address] Social History Tobacco Use Types Packs/Day Years [...]
--- OUTSIDE RECORDS SUMMARY | 2018-02-27 16:09 | XMS REPORT | Encounter Summary ---
Author Author [facility] Organization [facility] Address Unknown Phone Unavailable Care Team Providers Care Power Equipment Technology Instructor Name Role Phone Martinez Soni MD PCP Lukas Bland MD Unavailable Encounter Details Date Type Department Care Team Description 12/17/2017 Pharmacy Visit [facility] [address] [place] [address] Social History Tobacco Use Types Packs/Day Years [...]
--- OUTSIDE RECORDS SUMMARY | 2018-02-27 16:09 | XMS REPORT | Encounter Summary ---
Author Author [facility] Organization [facility] Address Unknown Phone Unavailable Care Team Providers Care Manufacturing Team Member Name Role Phone Esther Danielle MD PCP Lukas Bland MD Unavailable Reason for Visit * Auth/Cert Status Reason Specialty Diagnoses / Referred By Referred To Procedures Contact Contact Diagnoses Atrial fibrillation, unspecified type (HCC) Atrial fibrillation, unspecified type (HCC) [I48.91] P rocedures [place] PERQ CLSR TCAT L ATR APNDGE W/ENDOCARDIAL IMPLNT PERCUTANEOUS CLOSURE LEFT ATRIAL APPENDAGE WITH ENDOCARDIAL IMPLANT (AtriClip and LORENA) Left video-assisted thoracoscopic surgery Encounter Details Date Type Department Care Team Description 12/16/2017 Hospital Cardiothor Prgrsv Vidal Mascorro MD Paroxysmal atrial - Encounter [address] fibrillation (HCC) 12/20/2017 [place] [address] MS [address] [place] [address] [phone] Social History Tobacco Use Types Packs/Day Years Used Date Never Smoker Smokeless Tobacco: Never Used Alcohol Use Drinks/Week oz/Week Comments No Sex Assigned at Date Recorded Not on file as of this encounter Last Filed Vital Signs Vital Sign Reading Time Taken Blood Pressure 126/67 12/20/2017 10:48 AM CDT Pulse 89 12/20/2017 10:48 AM CDT Temperature 36.8 C (98.2 F) 12/20/2017 10:48 AM CDT Respiratory Rate - - Oxygen Saturation 95% 12/20/2017 10:48 AM CDT Inhaled Oxygen - - Concentration Weight 78.4 kg (172 lb 12.8 oz) 12/20/2017 6:00 AM CDT Height 167.6 cm (5' 6") 12/16/2017 8:47 AM CDT Body Mass Index 27.89 12/20/2017 6:00 AM CDT in this encounter Functional Status Functional Status Response Date of Assessment Does the patient have a hearing impairment: Yes 12/16/2017 as of this encounter Discharge Summaries * Celaya, August - 12/20/2017 10:54 AM CDT Formatting of this note may be different from the original. Physician Discharge Summary Name: Aga Bautista Date Of : 1935 Age: 82 years Admit date: 12/16/2017 Discharge date: 12/20/2017 Attending Physician: Dr. Longo Service: Cardiothor Surg Physician Summary completed by: Akil Clay PA-C Reason for hospitalization: Atrial fibrillation with intolerance to anticoagulation Significant PMH: Past Medical History: Diagnosis Date Aortic regurgitation Arthritis osteoarthritis Cardiac device in situ 10/22/2017 Cardiac pacemaker 11/25/2017 Chronic sinus complaints Congestive heart failure (CHF) (FORMERLY [facility]) Diabetes mellitus (FORMERLY [facility]) diet controlled Double kidney 4 kidneys total GERD (gastroesophageal reflux disease) H/O hemorrhoids HLD (hyperlipidemia) 10/22/2017 HTN (hypertension) 10/22/2017 Hypothyroidism IBS (irritable bowel syndrome) DAMASO on CPAP Osteoarthritis PAF (paroxysmal atrial fibrillation) (FORMERLY [facility]) 10/22/2017 Psychiatric illness anxiety Rectal bleeding 10/29/2017 S/P laparoscopic fundoplication 2005 2/2 GERD SSS (sick sinus syndrome) (FORMERLY [facility]) 10/22/2017 TIA (transient ischemic attack) 10/22/2017 Allergies: Milo inhibitors; Adhesive tape (rosins); Arb-angiotensin receptor antagonist; Beta blockers [beta-blockers (beta-adrenergic blocking agts)]; Bumex [bumetanide]; Erythromycin; Hydrochlorothiazide; Keflex [cephalexin]; Lasix [furosemide]; Nitrofurantoin macrocrystalline; Penicillins; Seafood; Shellfish containing products; Sulfa (sulfonamide antibiotics); Tetracycline; and Zithromax [azithromycin] Brief Hospital Course: Mrs. Bautista was admitted to the [facility] and underwent elective left VATS with AtriClip placement on 12/16/17 under the care of Dr. Longo. She was started on levaquin for a pre-op Lactobacillus UTI. She tolerated the procedure well. Most of her home medications were restarted, but her home ARB was held due to borderline blood pressures. Her hospitalization was uneventful and without complication. Her bowel and bladder function returned to normal, her pain was well controlled with oral medications, and she was tolerating a diet. She increased her activity daily and was ambulation 360 feet on the day of discharge. Mrs. Bautista was stable to be discharged home with home health on 12/20/17, POD #4. 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 Condition at Discharge: Stable Discharge Diagnoses: Hospital Problems Active Problems * (Principal)Paroxysmal atrial fibrillation (HCC) Cardiac device in situ HTN (hypertension) HLD (hyperlipidemia) TIA (transient ischemic attack) SSS (sick sinus syndrome) (HCC) Cardiac pacemaker Diabetes mellitus (HCC) GERD (gastroesophageal reflux disease) History of GI bleed Acute cystitis without hematuria Surgical Procedures: 1. Left video-assisted thoracoscopy and implantation of 45 mm atrial clip device. - Dr. Longo, 12/16/17 Significant Diagnostic Studies and Procedures: none Consults: None Patient Disposition: Home with Home Health Care Patient instructions/medications: CHEST 2 VIEWS Standing Status: Future Standing Exp. Date: 12/20/18 Reason for exam:(Sign,Symptom,Reason) s/p L VAT, Atriclip placement Other Activity Restrictions -You should and need to walk daily. Your goal is to walk 30 minutes at at time without stopping for breaks. This is a daily exercise routine that you should start as soon as you arrive home. Your basic daily activities do not count toward your 30 minute minimum, e.g. housework, toileting, fixing meals. Do not exercise outside in extremely hot or cold temperatures. -Bathing: NO tub baths, hot tubs, or swimming for 6 weeks. You may shower at any time. -Driving: NO driving for 2 weeks or while taking narcotics -Lifting: NO lifting more than 10 pounds (gallon of milk) for 6 weeks. -Monitoring: If you have access to a home blood pressure cuff, record your blood pressure and heart rate daily. Please call if your systolic blood pressure is <90 or >160, OR if your heart rate is <50 or >120 at rest Diabetes Information Diabetes is managed by checking your blood sugar, taking your medicine, exercising and eating healthy. Target blood sugar range is 80 - 140 mg/dL Check blood sugars before meals and at bedtime. Treatment of low blood sugars: If your blood sugar is low, you may feel shaky, weak, sweaty, hungry, confused, or have a headache. Check your blood sugar with a glucose meter. If it is below 70 treat with one of the following: juice (4 oz. ) or regular soda (4 oz.) or 4-5 hard candies. Recheck your blood sugar in 15 minutes and repeat this until level is above 70. Follow up with your doctor and inform them of any changes to your diabetes plan of care. *Talk with your doctor before stopping any medication or if you need refills on supplies or medications. *Eat three meals each day at regularly scheduled intervals (about 4-5 hours apart). It helps to control your blood sugar. Each meal should have equal amounts of carbohydrates. *Check your feet every day for blisters, cuts, and redness. Call your doctor if you have an infection, wound or cut anywhere on your feet. *Get a dilated eye exam each year. *Wear a medic alert ID if you are on insulin. *In an emergency contact your healthcare provider or go to the emergency room. A free class is available for diabetes education. The class is held in the [facility] on the 5th floor of the Medical Office Building, every Wednesday from 10:00-12:00 noon and every Wednesday 3:00 pm - 5:00 pm. The class is not held on actual or observed holidays. You do not need an appointment for this and we will not bill your insurance. More diabetes education and individual nutrition appointments are offered at the [facility]. Most insurance plans cover these services if you have a referral from your doctor. Call [phone], option 3 or go to [email or web address] for details. Report These Signs and Symptoms temperature higher than 100 degrees F, uncontrolled pain, persistent nausea and/ or vomiting, difficulty breathing, chest pain or drainage with a foul odor Questions About Your Stay For questions or concerns regarding your hospital stay. Call [phone] Discharging attending physician: VIDAL LONGO [[id number]] Cardiac Diet Limiting unhealthy fats and cholesterol is the most important step you can take in reducing your risk for cardiovascular disease. Unhealthy fats include saturated and trans fats. Monitor your sodium and cholesterol intake. Restrict your sodium to 2g (grams) or 2000mg (milligrams) daily, and your cholesterol to 200mg daily. If you have questions regarding your diet at home, you may contact a dietitian at . Diabetic Diet You should eat between 1600 and 2000 calories per day. This is equal to 60g ( grams) of carbohydrates per meal, and 30g of carbohydrates for a bedtime snack. If you have questions about your diet after you go home, you can call a dietitian at [phone]. Return Appointment Chest xray at 12:30pm, appointment to follow at 1:30pm. Provider VIDAL LONGO [[id number]] Location [facility] Appointment date: 01/31/2018 Appointment time: 12:30 PM Return Appointment You will need to make an appointment to see your primary care provider for 1-2 weeks. Provider ESTHER DANIELLE III [[id number]] Return Appointment You will need to schedule an appointment with your [employer] Special Education Teacher for 4-[address] weeks[address] [place] [address] Lukas Bland Opioid (Narcotic) Safety Information OPIOID (NARCOTIC) PAIN MEDICATION SAFETY We care about your comfort, and believe you need opioid medications at this time to treat your pain. An opioid is a strong pain medication. It is only available by prescription for moderate to severe pain. Usually these medications are used for only a short time to treat pain, but sometimes will be prescribed for longer. Talk with your doctor or nurse about how long they expect you to need this medication. When used the right way, opioids are safe and effective medications to treat your pain, even when used for a long time. Yet, when used in the wrong way, opioids can be dangerous for you or others. Opioids do not work for everyone. Most patients do not get full relief of their pain from opioid medication; full relief of your pain may not be possible. For your safety, we ask you to follow these instructions: *Only take your opioid medication as prescribed. If your pain is not controlled with the prescribed dose, or the medication is not lasting long enough, call your doctor. *Do not break or crush your opioid medication unless your doctor or pharmacist says you can. With certain medications, this can be dangerous, and may cause . *Never share your medications with others, even if they appear to have a good reason. Never take someone else's pain medication-this is dangerous, and illegal (a crime). Overdoses and deaths have occurred. *Keep your opioid medications safe, as you would with crocker, in a lock box or similar container. *Make sure your opioids are going to be secure, especially if you are around children or teens. *Talk with your doctor or pharmacist before you take other medications. *Avoid driving, operating machinery, or drinking alcohol while taking opioid pain medication. This may be unsafe. Pain medications can cause constipation. Constipation is bowel movements that are less often than normal. Stools often become very hard and difficult to pass. This may lead to stomach pain and bloating. It may also cause pain when trying to use the bathroom. Constipation may be treated with suppositories, laxatives or stool softeners. A diet high in fiber with plenty of fluids helps to maintain regular, soft bowel movements. Current Discharge Medication List START taking these medications Details aspirin 325 mg tablet Take one tablet by mouth daily. Take with food. Qty: 90 tablet, Refills: 3 PRESCRIPTION TYPE: Normal traMADol (ULTRAM) 50 mg tablet Take one tablet by mouth every 6 hours as needed. Qty: 20 tablet, Refills: 0 PRESCRIPTION TYPE: Print CONTINUE these medications which have NOT CHANGED Details acetaminophen (TYLENOL) 500 mg tablet Take 500 mg by mouth twice daily as needed for Pain. Max of 4,000 mg of acetaminophen in 24 hours. PRESCRIPTION TYPE: Historical Med ALPRAZolam (XANAX) 0.25 mg tablet Take 0.25 mg by mouth every 8 hours as needed for Anxiety. PRESCRIPTION TYPE: Historical Med amiodarone (CORDARONE) 200 mg tablet Take 100 mg by mouth daily. Take with food. PRESCRIPTION TYPE: Historical Med amLODIPine (NORVASC) 5 mg tablet Take 5 mg by mouth daily. PRESCRIPTION TYPE: Historical Med cyanocobalamin (VITAMIN B-12, RUBRAMIN) 1,000 mcg/mL injection Inject 1,000 mcg/ mL to area(s) as directed every 30 days. PRESCRIPTION TYPE: Historical Med docusate (COLACE) 100 mg capsule Take 100 mg by mouth as Needed for Constipation. PRESCRIPTION TYPE: Historical Med fexofenadine(+) (VIRY) 180 mg tablet Take 180 mg by mouth daily as needed. PRESCRIPTION TYPE: Historical Med latanoprost (XALATAN) 0.005 % ophthalmic solution Apply 1 drop to both eyes at bedtime daily. PRESCRIPTION TYPE: Historical Med levothyroxine (SYNTHROID) 50 mcg tablet Take 50 mcg by mouth daily 30 minutes before breakfast. PRESCRIPTION TYPE: Historical Med montelukast (SINGULAIR) 10 mg tablet Take 10 mg by mouth daily. PRESCRIPTION TYPE: Historical Med omeprazole DR(+) (PRILOSEC) 40 mg capsule Take 40 mg by mouth at bedtime daily. PRESCRIPTION TYPE: Historical Med polyethylene glycol 3350 (GLYCOLAX; MIRALAX) 17 gram/dose powder Take 17 g by mouth at bedtime as needed. PRESCRIPTION TYPE: Historical Med potassium chloride SR (K-DUR) 10 mEq tablet Take 10 mEq by mouth daily. Take with a meal and a full glass of water. PRESCRIPTION TYPE: Historical Med temazepam (RESTORIL) 15 mg capsule Take 15 mg by mouth at bedtime as needed for Sleep. PRESCRIPTION TYPE: Historical Med trimethoprim (TRIMPEX) 100 mg tablet Take 100 mg by mouth at bedtime daily. PRESCRIPTION TYPE: Historical Med The following medications were removed from your list. This list includes medications discontinued this stay and those removed from your prior med list in our system clindamycin(+) (CLEOCIN) 300 mg capsule irbesartan (AVAPRO) 300 mg tablet Scheduled appointments: Jan 31, 2018 1:30 PM CDT Post - Op with Vidal Longo MD [facility] [facility] [address] Pending items needing follow up: None Signed: Akil Clay PA-C 12/20/2017 cc: Primary Care Physician: Esther Danielle III Verified Referring physicians: Dr. Lukas Bland in this encounter Medications at Time of Discharge [...] mouth at 100 mg tablet bedtime daily. fexofenadine(+) (VIRY) Take 180 mg by mouth 01/31/2018 180 mg tablet daily as needed. as of this encounter Progress Notes * Nohemy Mishra RN - 12/20/2017 11:59 AM CDT 5453 - Reviewed discharge instructions, prescriptions/medications, follow-up appt with pt. Pt states verbal understanding - no questions. IV's and Tele dc' d. Medication delivered to bedside by pharmacy mental health consultant team. Per Pharmacy team - pt is not to take aspirin at this time. Waiting for time confirmation of medicare ride. Pt's home medication - eyedrops, returned to pt. Pt's RNToni, updated. * Juan Manuel Lima - 12/20/2017 11:32 AM CDT Reason for Visit: Routine Brandi/Hindu: Rastafarian Source of Purpose/Meaning: Worries/Concerns/Struggles: Method(s) of Coping: Support System: Interventions/Plan: Pt. Is discharging today, she talked about her family and asked prayer for her who has Alzheimer and lives in a skilled nursing and can not talk to her. Her daughter comes to see them both once a month. She has a home care assistance helps her in shopping and driving. Prayed for her. The spiritual care team is available as needed, 30/11, through the campus switchboard ([phone]). For immediate response, please page [phone]. For a response within 24 hours, please submit an order in O2 for a crew foreman consult or call the administrative voicemail at [phone]. * Gabriela Zuñiga PA-C - 12/20/2017 7:18 AM CDT Formatting of this note may be different from the original. CARDIOTHORACIC SURGERY DAILY PROGRESS NOTE PROCEDURE: 12/16/17 - Left video-assisted thoracoscopy and implantation of 45 mm atrial clip device POD #: 4 SUBJECTIVE: Didn't sleep well last night. Denies pain, dizziness, SOB. Overnight events: No acute events ASSESSMENT: Principal Problem: Atrial fibrillation (HCC) Active Problems: TIA (transient ischemic attack) SSS (sick sinus syndrome) (HCC) Cardiac pacemaker Diabetes mellitus (HCC) PLAN: 1. CV - Rhythm - paced in 50-60s, afib underlying. SBP stable 90-130s. Cont amio , ASA, home norvasc. No anticoag for hx of GI bleeding. 2. Resp - CXR no acute changes, chronic dilated bowel loops. On RA Cont IS, aggressive pulm toilet. 3. Renal - UOP 1.2L/24hrs. Animal Ride Manager 1.04. Net -0.4kg/admission. 4. GI - + BM 12/19, cont bowel regimen. 5. ID - WBC stable 7.3. Afebrile. 6. Endo - no hx DM 7. Activity - increase, ambulated 25-50' yesterday. OT/PT rec HH v inpatient 8. Disposition - Mobilize. Home w HH at discharge. Pt has home health services in place. OBJECTIVE: Vitals: 12/19/17 2300 12/20/17 0041 12/20/17 0400 12/20/17 0600 BP: 98/61 121/54 Pulse: 68 62 57 Temp: 37 C (98.6 F) 36.8 C (98.3 F) SpO2: 94% 93% 93% Weight: 78.4 kg (172 lb 12.8 oz) Height: Physical Exam: General: A&O x 3 Cardiovascular: RRR no rub or murmur Respiratory: LS CTA adrian GI: soft, NT, +BS Extremities: No Edema Incisions: clean, dry, intact Prophylaxis Review: Lines: No Antibiotic Usage: No VTE: Mechanical prophylaxis; Sequential compression device Urinary Catheter: No Pertinent Meds: Taking Reason for Not Taking 1. Aspirin yes 2. B-Nathan no Not on preop 3. Statin no Not indicated 4. MILO/ARB no Ef >40 LABS: Lab Results Component Value Date/Time WBC 7.3 12/20/2017 04:28 AM HGB 10.5 (L) 12/20/2017 04:28 AM HCT 32.5 (L) 12/20/2017 04:28 AM PLTCT 258 12/20/2017 04:28 AM Lab Results Component Value Date/Time NA 135 (L) 12/20/2017 04:28 AM K 3.8 12/20/2017 04:28 AM CL 105 12/20/2017 04:28 AM CO2 23 12/20/2017 04:28 AM BUN 18 12/20/2017 04:28 AM CR 1.04 (H) 12/20/2017 04:28 AM GLU 125 (H) 12/20/2017 04:28 AM No results found for: MG No results found for: PO4 Lab Results Component Value Date GLUPOC 128 (H) 12/16/2017 GLUPOC 118 (H) 12/16/2017 Gabriela Zuñiga PA-C [id number] Associated attestation - Vidal Longo MD - 12/20/2017 9:16 AM CDT She is doing well. We will send her home today * Lucia Land, BIBI - 12/20/2017 4:44 AM CDT Pt AOx4 and A-paced/SR on tele. Pt on RA, denies SOB. Left chest dressing C,D, I. Pain controlled with Tramadol. Pt denies dizziness or N/V. Small BMs. Will continue to monitor * Brenda Daniels RN - 12/19/2017 9:30 AM CDT Assessment completed. VSS, Apaced on tele. Denies pain/soa/nausea at this time. High fall bundle in place. Call light at side. Will monitor. 1610- Pt ambulated a few times in haskins today and in room. States that she is "tired". UOP adequate. Pain controlled with tramadol. Will monitor. * Nancie Matias PA-C - 12/19/2017 8:01 AM CDT Formatting of this note may be different from the original. CARDIOTHORACIC SURGERY DAILY PROGRESS NOTE PROCEDURE: Left video-assisted thoracoscopy and implantation of 45 mm atrial clip device POD #: 3 SUBJECTIVE: Overnight events: none ASSESSMENT: Principal Problem: Atrial fibrillation (HCC) Active Problems: TIA (transient ischemic attack) SSS (sick sinus syndrome) (HCC) Cardiac pacemaker Diabetes mellitus (HCC) PLAN: 1. CV - Rhythm - paced, afib underlying. SBP stable 106-137. Cont amio, ASA, home norvasc. No anticoag for hx of GI bleeding. 2. Resp - CXR no acute changes, chronic dilated bowel loops. On RA Cont IS, aggressive pulm toilet. CT 155mL/24hrs 3. Renal - UOP not accurate cr. 1.23. Received 1 dose of lasix yesterday, down from pre op weight 4. GI - + BM since surgery, cont bowel regimen. simethicone 5. ID - WBC stable 10. Afebrile. 6. Endo - no hx DM 7. Activity - increase, OT/PT rec HH v inpatient 8. Disposition - Increase activity, d/c chest tube, d/w staff OBJECTIVE: Vitals: 12/19/17 0000 12/19/17 0057 12/19/17 0500 12/19/17 0600 BP: 121/61 109/77 Pulse: 59 62 59 Temp: 36.9 C (98.4 F) 36.6 C (97.8 F) SpO2: 98% 97% 96% Weight: 76.6 kg (168 lb 12.8 oz) Height: Physical Exam: General: A&O x 3 Cardiovascular: RRR no rub or murmur Respiratory: LS CTA adrian GI: soft, NT, +BS Extremities: No Edema Incisions: clean, dry, intact Prophylaxis Review: Lines: No Antibiotic Usage: No VTE: Mechanical prophylaxis; Sequential compression device Urinary Catheter: No Chest Tubes OUTPUT/24 HOURS AIR LEAK PRESENT Mediastinal Pleural #1 155 Pleural # 2 Pertinent Meds: Taking Reason for Not Taking 1. Aspirin yes 2. B-Nathan no Not on preop 3. Statin yes 4. MILO/ARB no Ef >40 LABS: Lab Results Component Value Date/Time WBC 10.1 12/19/2017 04:18 AM HGB 10.9 (L) 12/19/2017 04:18 AM HCT 33.7 (L) 12/19/2017 04:18 AM PLTCT 261 12/19/2017 04:18 AM Lab Results Component Value Date/Time NA 135 (L) 12/19/2017 04:18 AM K 3.7 12/19/2017 04:18 AM CL 105 12/19/2017 04:18 AM CO2 21 12/19/2017 04:18 AM BUN 22 12/19/2017 04:18 AM CR 1.23 (H) 12/19/2017 04:18 AM GLU 122 (H) 12/19/2017 04:18 AM No results found for: MG No results found for: PO4 Lab Results Component Value Date GLUPOC 128 (H) 12/16/2017 GLUPOC 118 (H) 12/16/2017 Nancie Matias PA-C Associated attestation - Vidal Longo MD - 12/19/2017 10:10 AM CDT Remove chest tube today. We will plan on sending her home tomorrow. She is only ambulated 175 feet so far. * Caitlin Arce, BIBI - 12/19/2017 7:45 AM CDT No acute events overnight. Assessments completed and documented per flowsheet. Tele on, Apaced/SR. VSS. A&Ox4. Pt's pain controlled with PRN Tylenol and Tramadol. Surgical incisions C/D/I. CT to bulb suction. SS output. Adequate UOP. +several BMs. HFR bundle in place. No other needs voiced at this time. Call light within reach, will continue to monitor. * Jocelyn Castillo - 12/18/2017 11:38 AM CDT PHYSICAL THERAPY MOBILITY NOTE Patient was assigned for activity with the mobility aide by the supervising therapist. Patient politely declined to participate. Tried twice with the patient to walk, but the patient stated that she walked couple of times to the bathroom, and would like to take rest. Will follow- up later today. Aide: Jocelyn Castillo Date: 12/18/2017 * Brenda Daniels RN - 12/18/2017 9:05 AM CDT Assessment completed. VSS, APaced on tele. Pt denies pain/soa/nausea at this time. Pt up in chair. Left CT to bulb suction, dressing CDI. High fall bundle in place. Call light at side. Will monitor. 1545- VSS, APaced on tele. Pain controlled with tramadol. Pt ambulated in haskins with RN this afternoon. Minimal output from ARNOL bulb CT. UOP adequate. Will monitor. * Nancie Matias PA-C - 12/18/2017 8:13 AM CDT Formatting of this note may be different from the original. CARDIOTHORACIC SURGERY DAILY PROGRESS NOTE PROCEDURE: Left video-assisted thoracoscopy and implantation of 45 mm atrial clip device POD #: 2 SUBJECTIVE: Overnight events: none ASSESSMENT: Principal Problem: Atrial fibrillation (HCC) Active Problems: TIA (transient ischemic attack) SSS (sick sinus syndrome) (HCC) Cardiac pacemaker Diabetes mellitus (HCC) PLAN: 1. CV - Rhythm - paced, afib underlying. BP stable 110s. Cont amio, ASA, home norvasc. No anticoag for hx of GI bleeding. 2. Resp - CXR pending On RA Cont IS, aggressive pulm toilet. CT 250mL/24hrs 3. Renal - UOP not accurate 4. GI - + BM since surgery, cont bowel regimen. reglan and simethicone 5. ID - WBC stable 9.6. Afebrile. 6. Endo - FSBS stable on current regimen. 7. Activity - increase, OT/PT rec HH v inpatient 8. Disposition - Increase activity,cont chest tube, d/w staff OBJECTIVE: Vitals: 12/17/17 2325 12/18/17 0114 12/18/17 0318 12/18/17 0600 BP: 113/56 117/59 Pulse: 62 60 Temp: 37.1 C (98.8 F) 36.5 C (97.7 F) SpO2: 93% 93% 95% Weight: 78.9 kg (174 lb) Height: Physical Exam: General: A&O x 3 Cardiovascular: RRR no rub or murmur Respiratory: LS CTA adrian GI: soft, NT, +BS Extremities: No Edema Incisions: clean, dry, intact Prophylaxis Review: Lines: No Antibiotic Usage: Yes; Infection present or suspected: /GI; Urinary tract infection (UTI) VTE: Mechanical prophylaxis; Sequential compression device Urinary Catheter: No Chest Tubes OUTPUT/24 HOURS AIR LEAK PRESENT Mediastinal Pleural #1 245 Pleural # 2 Pertinent Meds: Taking Reason for Not Taking 1. Aspirin yes 2. B-Nathan no Not on preop 3. Statin yes 4. MILO/ARB no Ef >40 LABS: Lab Results Component Value Date/Time WBC 9.6 12/17/2017 04:24 AM HGB 9.7 (L) 12/17/2017 04:24 AM HCT 30.3 (L) 12/17/2017 04:24 AM PLTCT 235 12/17/2017 04:24 AM Lab Results Component Value Date/Time NA 134 (L) 12/17/2017 04:24 AM K 4.1 12/17/2017 04:24 AM CL 106 12/17/2017 04:24 AM CO2 22 12/17/2017 04:24 AM BUN 16 12/17/2017 04:24 AM CR 0.84 12/17/2017 04:24 AM GLU 115 (H) 12/17/2017 04:24 AM No results found for: MG No results found for: PO4 Lab Results Component Value Date GLUPOC 128 (H) 12/16/2017 GLUPOC 118 (H) 12/16/2017 Nancie Matias PA-C Associated attestation - Vidal Longo MD - 12/18/2017 9:47 AM CDT Making good progress. We will plan on dismissing her yesterday. We will stop her aspirin because of prior history of bleeding. We will plan on removing her chest tube tomorrow. * Vidhi Estrella, BIBI - 12/18/2017 6:21 AM CDT Assumed care at 1900. No acute events overnight. Assessments completed and documented per flowsheet. A&Ox4, VSS per pt trend, tolerating RA, denies SOA, A paced on tele overnight. Pain well controlled via current regimen. Surgical incisions CDI. CT to bulb suction w/ a total output of 80 mLs overnight. BM 12/17/17, Inaccurate UOP due to missed occurrence in toilet. HFR bundle in place. Pt uses call light appropriately. No other needs voiced at this time. Call light within reach. Will continue to monitor. * Deborah Quevedo RN - 12/17/2017 7:38 PM CDT A&Ox4. VSS. SR / A-Paced on tele. Tolerating RA. +BM this shift. +1 assist, walker, steady but slow gait. ARNOL to suction, SS drainage. Incisions CDI. HFR bundle in place. * Renee Broderick - 12/17/2017 2:09 PM CDT Formatting of this note may be different from the original. OCCUPATIONAL THERAPY ASSESSMENT NOTE Patient Name: Aga Bautista Room/Bed: [place] [address] Admitting Diagnosis: Atrial fibrillation, unspecified type (FORM[facility]LY [facility]) [I48.91] Atrial fibrillation ([facility]) Past Medical History: Diagnosis Date Aortic regurgitation Arthritis osteoarthritis Cardiac device in situ 10/22/2017 Cardiac pacemaker 11/25/2017 Chronic sinus complaints Congestive heart failure (CHF) ([facility]) Diabetes mellitus ([facility]) diet controlled Double kidney 4 kidneys total GERD (gastroesophageal reflux disease) H/O hemorrhoids HLD (hyperlipidemia) 10/22/2017 HTN (hypertension) 10/22/2017 Hypothyroidism IBS (irritable bowel syndrome) DAMASO on CPAP Osteoarthritis PAF (paroxysmal atrial fibrillation) ([facility]) 10/22/2017 Psychiatric illness anxiety Rectal bleeding 10/29/2017 S/P laparoscopic fundoplication 2006 2/2 GERD SSS (sick sinus syndrome) ([facility]) 10/22/2017 TIA (transient ischemic attack) 10/22/2017 Mobility Progressive Mobility Level: Walk in room Distance Walked (feet): 25 ft Level of Assistance: Stand by assistance Assistive Device: Walker Time Tolerated: 0-10 minutes Activity Limited By: Fatigue Subjective Pertinent Dx per Physician: s/p PERCUTANEOUS CLOSURE LEFT ATRIAL APPENDAGE WITH ENDOCARDIAL IMPLANT (AtriClip and LORENA) Left video-assisted thoracoscopic surgery (12/16). Hx pacemaker placement 11/25/17. Patient Stated Goals: Return home Precautions: Standard;Falls;Pacemaker Precautions;Sternal Precautions (ARNOL drain X1) Pain / Complaints: Patient agrees to participate in therapy Pain Location: (Post-procedure; Does not rate) Comments: Patient in bed with needs met and precautions in place upon therapist arrival and departure. Patient agreeable to walk later tonight with nursing staff. Objective Psychosocial Status: Willing and Cooperative to Participate Persons Present: Physical Therapist; Daughter Home Living Type of Home: Apartment Home Layout: One Level;Elevator (Lives on upper level; Elevator access) Bathroom Shower / Tub: Walk-in Shower Bathroom Toilet: Standard Bathroom Equipment: Grab Bars in Shower;Shower Chair Home Equipment: Shower/Tub Bench;Grab Bars (4-wheeled walker with seat) Comment: Sleeps in a flat bed. Denies recent falls at home. 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 Patient completing simple meal-preparation (making sandwiches) and grocery shopping with assistance for transportation (use of rollator for community distances). Patient denies falls at home. She report she has been having assistance to don compression stockings since pacemaker placement approximately 3 weeks ago. Patient reports she waits to shower until someone is there so that she transfers out of shower safely. Pt reports she has been looking for additional assistance to come to her home at night. Daughter lives out of town. Vision Current Vision: (WFL; No c/o acute changes) ADL's Where Assessed: Edge of Bed;Supine, Bed Grooming Assist: Minimal Assist (Contact Guard) Grooming Deficits: Standing With Assistive Device;Supervision/Safety ( Demonstration of balance for sink-level tasks only) LE Dressing Assist: (Demonstrated LE crossover technique for socks- long- sitting) LE Dressing Deficits: Don/Doff R Sock;Don/Doff L Sock Toileting Assist: Moderate Assist Toileting Deficits: Perineal Hygiene;Clothing Management Up;Supervision/Safety; Increased Time To Complete Functional Transfer Assist: Minimal Assist Functional Transfer Deficits: Toilet Transfer;Steadying (for controlled descent onto low toilet height) Comment: Stand by assist to transfer to EOB with head of bed elevated. Minimal assist for in-room mobility with roller walker. Patient required assistance for posterior masoud care and brief management after voiding. Patient declined additional out of bed ADLs/ mobility d/t fatigue and wanting to rest. Stand by assist for sit to supine (head of bed elevated) Activity Tolerance Endurance: 3/5 Tolerates 25-30 Minutes Exercise w/Multiple Rests Sitting Balance: 4/5 Moves/Returns Trunkal Midpoint 1-2 Inches in Multiple Planes Cognition Comprehension: Hard of Hearing (Required repetition of instructions) Social Interaction: Interacts in a Spontaneous,Cooperative Manner Orientation: Alert & Oriented x4 Attention: Awake/Alert Cognition Comment: Daughter assisted with provision of PLOF information and information regarding level of assistance available at home. UE AROM Overall BUE AROM WNL: Yes Coordination: Adequate to Complete ADLs Grasp: Bilateral Grasp Functional for Activity Comment: Functional assessment only; Sternal and pacemaker precautions Sensory Overall Sensory: (No c/o acute changes; Functional assessment only) UE Strength / Tone Strength/Tone Not Assessed: Due to Precautions Overall Strength / Tone: WFL Able to Perform ADL Tasks (Functional assessment only; Sternal and pacemaker precaution) Education Persons Educated: Patient/Family Teaching Methods: Verbal Instruction;Demonstration Patient Response: Verbalized and Demo Understanding;More Instruction Required Topics: Role of OT, Goals for Therapy;ADL Compensatory Techniques;Home safety ( sternal precautions) Goal Formulation: With Patient Assessment Assessment: Decreased ADL Status;Decreased Endurance;Decreased Self-Care Trans; Decreased High-Level ADLs Prognosis: Good;w/Cont OT s/p Acute Discharge Goal Formulation: Patient AM-PAC 6 Clicks Daily Activity Inpatient Putting on and taking off regular lower body clothes?: A Little Bathing (Including washing, rinsing, drying): A Little Toileting, which includes using toilet, bedpan, or urinal: A Lot Putting on and taking off regular upper body clothing: A Little Taking care of personal grooming such as brushing teeth: A Little Eating meals?: None Daily Activity Raw Score: 18 Standardized (t-scale) score: 38.66 CMS 0-100% Score: 46.65 CMS G Code Modifier: CK Plan OT Frequency: 5x/week OT Plan for Next Visit: Toileting, LB dressing, transfers with precautions maintained (Will need to be completing basic ADLs modified independently to return home at d/c) ADL Goals Patient Will Perform All ADL's: w/ Modified Assumption;w/ Good Judgment/ Safety (w/ precautions maintained 100% of trials) Patient Will Perform LE Dressing: w/ Modified Independent (w/ precautions maintained 100% of trials) Patient Will Perform Toileting: w/ Modified Independent (w/ precautions maintained 100% of trials) Functional Transfer Goals Pt Will Perform All Functional Transfers: Modified Independent, w/ Good Judgment /Safety (w/ precautions maintained 100% of trials) G-Codes: Self-care G8987 Current Status: 40-59% Impairment G8988 Goal Status: 20-39% Impairment Based on above evaluation and clinical judgment. OT Discharge Recommendations OT Discharge Recommendations: Home with Home Health AND Home with consistent supervision, Vs, Inpatient Setting Equipment Recommendations: Patient owns necessary equipment Additional Information: Currently, patient requires moderate assistance for toileting tasks, minimal assistance for functional transfers with roller walker , assistance for bathing (not assessed; assist prior to admission) and assistance for lower body dressing tasks. Occupational Therapy will continue to follow to provide intervention and ongoing d/c recommendations as indicated during acute stay. Recommend ongoing assistance for: Transfers, Ambulation, Safety concerns, Bathing, Dressing, Toileting (IADLs) Therapist: Renee Broderick OTR/[facility] [id number] Date: 12/17/2017 * Neal Luevano, PT - 12/17/2017 1:18 PM CDT PHYSICAL THERAPY ASSESSMENT MOBILITY: Mobility Progressive Mobility Level: Walk in room Distance Walked (feet): 25 ft Level of Assistance: Stand by assistance Assistive Device: Walker Time Tolerated: 0-10 minutes Activity Limited By: Fatigue SUBJECTIVE: Subjective Significant hospital events: 82 y/o F presents with A-fib s/p L video-assisted thoracoscopy and implantation of atrial clip device 12/16 Mental / Cognitive Status: Alert;Oriented;Cooperative;Follows Commands Persons Present: (P) Physical Therapist (Simultaneous filing. User may not have seen previous data.) Pain: Patient has no complaint of pain Precautions: Sternal Precautions;Pacemaker Precautions Ambulation Assist: Independent Mobility at Household Level with Device Patient Owned Equipment: 4-Wheeled Walker (Shower chair, toilet riser) Home Situation: Receives Assistance From Home Health Nursing;Has Assistance Available as Needed Type of Home: Apartment (Simultaneous filing. User may not have seen previous data.) Entry Stairs: Elevator;No Stairs In-Home Stairs: Elevator;No Stairs Pt lives in 3rd floor apartment with elevator. Prior to admission, pt reports that she was independent at household level with 4-wheeled walker. Pt received assistance from 5 days/week for about 4 hours to assist with getting into and out of shower, and IADLs such as cleaning, laundry, etc. Pt endorsed no falls at home, although she does report that recently she had experienced increased dizziness. STRENGTH: Strength Overall Strength: WFL POSTURE/NEURO: Posture / Neurological Posture: Rounded Shoulders;Kyphosis;Flexed Trunk Overall Tone: Normal Coordination: No Deficits Noted BED MOBILITY/TRANSFERS: Bed Mobility/Transfers Bed Mobility: Supine to Sit: Standby Assist;Requires Extra Time;Head of Bed Elevated Bed Mobility: Sit to Supine: Standby Assist;Requires Extra Time;HOB Elevated Other Transfer Type: Sit to/from Stand Other Transfer: Assistance Level: Minimal Assist;To/From;Bed;Toilet (CGA) Other Transfer: Assistive Device: Roller Walker Other Transfer: Type Of Assistance: To Maintain Precautions End Of Activity Status: In Bed;Nursing Notified;Instructed Patient to Request Assist with Mobility;Instructed Patient to Use Call Light (Bed alarm activated) Comments: Verbal cues for maintaining sternal precautions, pt required more assistance with sit>stand transfer from toilet, however pt reports that she normally uses a toilet riser at home BALANCE: Balance Sitting Balance: Static Sitting Balance;Dynamic Sitting Balance;2 UE Support; Standby Assist Standing Balance: Static Standing Balance;Dynamic Standing Balance;2 UE support; Standby Assist GAIT: Gait Gait Distance: 25 feet (likely not max distance) Gait: Assistance Level: Standby Assist Gait: Assistive Device: Roller Walker Gait: Descriptors: Decreased step length;Swing-Through Gait;Pace: Normal; Forward trunk flexion Activity Limited By: Complaint of Fatigue Comments: Pt reports that she could walk further but has been up and down to bathrrom several times today and wishes to rest after ambulating to bathroom. Encouraged pt to walk in hallway with nurse this evening as able. Pt requires occasional cueing for management of roller walker, hand placement, safety awareness. EDUCATION: Education Persons Educated: Patient Patient Barriers To Learning: Cognitive Deficits;Decreased Hearing Interventions: Repetition of Instructions;Louder Voice Required Teaching Methods: Verbal Instruction;Demonstration Patient Response: Verbalized Understanding;Return Demonstration Topics: Plan/Goals of PT Interventions;Up with Assist Only;Safety Awareness; Precautions;Importance of Increasing Activity;Ambulate With Nursing;Recommend Continued Therapy ASSESSMENT/PROGRESS: Assessment/Progress Impaired Mobility Due To: Post Surgical Changes;Medical Status Limitation; Deconditioning Assessment/Progress: Should Improve w/ Continued PT AM-PAC 6 Clicks Basic Mobility Inpatient Turning from your back to your side while in a flat bed without using bed rails : None Moving from lying on your back to sitting on the side of a flatbed without using bedrails : None Moving to and from a bed to a chair (including a wheelchair): None Standing up from a chair using your arms (e.g. wheelchair, or bedside chair): A Little To walk in hospital room: A Little Climbing 3-5 steps with a railing: A Lot Raw Score: 20 Standardized (T-scale) Score: 43.99 Basic Mobility CMS 0-100%: 33.32 CMS G Code Modifier for Basic Mobility: CJ G-Codes: Mobility G8978 Current Status: 20-39% Impairment G8979 Goal Status: 1-19% Impairment Based on above evaluation and clinical judgment. GOALS: Goals Goal Formulation: With Patient Pt Will Go Supine To/From Sit: Independently Pt Will Transfer Bed/Chair: w/ Stand By Assist Pt Will Transfer Sit to Stand: w/ Stand By Assist Pt Will Ambulate: 101-150 Feet, w/ Walker, Independently PLAN: Plan Treatment Interventions: Mobility Training;Strengthening;Endurance Training Plan Frequency: 5 Days per Week PT Plan for Next Visit: Progress activity tolerance and ambulation distance, sit <>stand transfers maintaining sternal precautions P.T. mobility aide to assist with ongoing mobilization and exercise per instructions of licensed physical therapy staff. RECOMMENDATIONS: PT Discharge Recommendations PT Discharge Recommendations: Home with Assistance;Home Health Setting;versus; Inpatient Setting Equipment Recommendations: Patient owns necessary equipment Recommend ongoing assistance for: Transfers;Bed mobility;Ambulation;Safety concerns;Stairs Anticipate patient will progress well and be safe for home discharge with home health services with consistent supervision. Pt is currently limited by decreased activity tolerance and is requiring minimal assistance for sit<>stand transfers and minimal cueing for safe management of walker. Will continue to assess and update recommendations. Therapist: Neal Luevano, PT, DPT Date: 12/17/2017 * Nancie Matias PA-C - 12/17/2017 7:04 AM CDT Formatting of this note may be different from the original. CARDIOTHORACIC SURGERY DAILY PROGRESS NOTE PROCEDURE: Left video-assisted thoracoscopy and implantation of 45 mm atrial clip device POD #: 1 SUBJECTIVE: Overnight events: none ASSESSMENT: Principal Problem: Atrial fibrillation (HCC) Active Problems: Cardiac pacemaker Diabetes mellitus (HCC) PLAN: 1. CV - Rhythm - paced, afib underlying. BP stable 100-130s. Cont amio, ASA, add home norvasc. No anticoag for hx of GI bleeding. 2. Resp - CXR reviewed, no acute changes, cont dilated loops of bowel. On RA Cont IS, aggressive pulm toilet. CT 245mL/24hrs 3. Renal - creatinine .84. UOP no accurate 4. GI - no BM since surgery, cont bowel regimen. Added reglan and simethicone 5. ID - WBC stable 9.6. Afebrile. 6. Endo - FSBS stable on current regimen. 7. Activity - increase, OT/PT for HH 8. Disposition - Increase activity, will need HH, 1-2 more days, d/w staff OBJECTIVE: Vitals: 12/16/17 2240 12/16/17 2348 12/17/17 0410 12/17/17 0600 BP: 108/41 125/67 Pulse: 67 63 101 Temp: 36.7 C (98 F) 36.8 C (98.2 F) SpO2: 93% 94% 96% Weight: 78.8 kg (173 lb 12.8 oz) Height: Physical Exam: General: A&O x 3 Cardiovascular: RRR no rub or murmur Respiratory: LS CTA adrian GI: soft, NT, +BS Extremities: No Edema Incisions: clean, dry, intact Prophylaxis Review: Lines: No Antibiotic Usage: Yes; Infection present or suspected: /GI; Urinary tract infection (UTI) VTE: Mechanical prophylaxis; Sequential compression device Urinary Catheter: No Chest Tubes OUTPUT/24 HOURS AIR LEAK PRESENT Mediastinal Pleural #1 245 Pleural # 2 Pertinent Meds: Taking Reason for Not Taking 1. Aspirin yes 2. B-Nathan no Not on preop 3. Statin yes 4. MILO/ARB no Ef >40 LABS: Lab Results Component Value Date/Time WBC 9.6 12/17/2017 04:24 AM HGB 9.7 (L) 12/17/2017 04:24 AM HCT 30.3 (L) 12/17/2017 04:24 AM PLTCT 235 12/17/2017 04:24 AM Lab Results Component Value Date/Time NA 134 (L) 12/17/2017 04:24 AM K 4.1 12/17/2017 04:24 AM CL 106 12/17/2017 04:24 AM CO2 22 12/17/2017 04:24 AM BUN 16 12/17/2017 04:24 AM CR 0.84 12/17/2017 04:24 AM GLU 115 (H) 12/17/2017 04:24 AM No results found for: MG No results found for: PO4 Lab Results Component Value Date GLUPOC 128 (H) 12/16/2017 GLUPOC 118 (H) 12/16/2017 Nancie Matias PA-C Associated attestation - Vidal Longo MD - 12/17/2017 3:28 PM CDT She is making progress. Will take her chest tube out tomorrow and likely dismiss her on Wednesday * Aurora Shea, RN - 12/17/2017 6:07 AM CDT Assumed patient care at 1900 VS stable, Apaced on tele. Pt denies pain Inaccurate but adequate urine output -BM this shift. Incision C/D/I CT to bulb suction with SS drainage No other concerns at this time, will continue to monitor * Rodri Rojas, - 12/16/2017 5:17 PM CDT Formatting of this note may be different from the original. RESPIRATORY THERAPY ADULT PROTOCOL EVALUATION RESPIRATORY PROTOCOL PLAN Medications Note: If indicated by protocol, medication orders will be placed by therapist. Procedures PAP: Place a nursing order for "IS Q1h While Awake" for any of Lung Expansion indicators PATIENT EVALUATION RESULTS Chart Review * Pulmonary Hx: No pulmonary diagnosis OR no smoking hx * Surgical Hx: Spinal surgery/injury (LE) * Chest X-Ray: Clear OR not available * PFT/Oxygenation: FEV1, PEFR > 80% predicted OR physically unable to perform OR Pa02 >80 RA OR Sp02 >95% RA Patient Assessment * Respiratory Pattern: Regular pattern and rate OR good chest excursion with deep breathing * Breath Sounds: Clear and able to auscultate bases posteriorly * Cough / Sputum: Strong, effective cough OR nonproductive * Mental Status: Alert, oriented, cooperative * Activity Level: Ambulatory Priority Index Total Points: 2 Points * Priority Index: 1 PRIORITY INDEX GUIDELINES* Priority Points 1 0-9 points 2 9-18 points 3 > 18 points + Pulm Dx or Home Rx *Higher points indicate higher acuity. Therapist: Rodri Rojas, RT Date: 12/16/2017 Koo AC=Airway clearance AM=Aerosolized medication BA=Temple aerosol DB&C=Deep breathe & cough FEV1=Forced expiratory volume in first second) IC=Inspiratory capacity LE=Lung expansion MDI=Metered dose inhaler Neb=Nebulizer O2=Oxygen Oxim=Oximetry PEFR=Peak expiratory flow rate ACADEMIC INTERVENTIONIST=Rapid Response Team * Rut Condon, BIBI - 12/16/2017 4:12 PM CDT Patient continues to c/o nausea. 4mg IV zofran given. Patient states she is unable to vomit because of a previous gastric "procedure". Chest tube to bulb, ss output. Moran too dd, will d/c at this time. Denies pain. 95% on room air. Besides nausea, resting comfortably at this time. * Stephany Adrian PA-C - 12/16/2017 9:10 AM CDT Formatting of this note may be different from the original. History and Physical Update Note Name: Aga Bautista Allergies: Milo inhibitors; Adhesive tape (rosins); Arb-angiotensin receptor antagonist; Beta blockers [beta-blockers (beta-adrenergic blocking agts)]; Bumex [bumetanide]; Erythromycin; Hydrochlorothiazide; Keflex [cephalexin]; Lasix [furosemide]; Nitrofurantoin macrocrystalline; Penicillins; Seafood; Shellfish containing products; Sulfa (sulfonamide antibiotics); Tetracycline; and Zithromax [azithromycin] Primary Care Physician: Esther Danielle III Verified Lab/Radiology/Other Diagnostic Tests: Hematology: Lab Results Component Value Date HGB 11.3 12/15/2017 HCT 35.1 12/15/2017 PLTCT 351 12/15/2017 WBC 8.3 12/15/2017 MCV 73.2 12/15/2017 MCHC 32.1 12/15/2017 MPV 8.1 12/15/2017 RDW 18.5 12/15/2017 , Coagulation: Lab Results Component Value Date PTT 29.2 12/15/2017 INR 1.1 12/15/2017 and General Chemistry: Lab Results Component Value Date NA 139 12/15/2017 K 3.9 12/15/2017 CL 108 12/15/2017 GAP 8 12/15/2017 BUN 17 12/15/2017 CR 1.15 12/15/2017 GLU 145 12/15/2017 CA 9.9 12/15/2017 ALBUMIN 4.2 12/15/2017 TOTBILI 0.7 12/15/2017 Last Dose Beta Blockers/Anticoagulants: Last dose of Beta Nathan: N/A Point of Care Testing: (Last 24 hours): POC Glucose (Download): (!) 118 (12/16/17 0908) I have examined the patient, and there are no significant changes in their condition, from the previous H&P performed on 12/06/17. Plan left VATS/Atriclip today with Dr. Longo. Will start levaquin for abnormal UA until urine culture final. Stephany Adrian PA-C Pager [phone] * Elsie Sapp RN - 12/15/2017 3:18 PM CDT Patient unable to produce urine for UA today during pre operative appointment. Patient denies UTI s/s. Complete UA order placed for DOS per protocol. in this encounter H&P Notes * Stephany Adrian PA-C - 12/15/2017 10:28 AM CDT Formatting of this note may be different from the original. H&P below was performed by Naty Fry NP on 12/06/17. Patient admitted to for VATS with Atriclip placement with Dr. Longo. Date of Service: 12/06/2017 History of Present Illness We had the pleasure of seeing your patient, Aga Bautista. As you know Aga Bautista is a 82 y.o. female who you have been following for a history of paroxysmal atrial fibrillation. She is thought to have had multiple TIAs with one episode occurring with facial droop and she states she feels tingling in her scalp that she believes is related to TIAs that are occurring more frequently recently. She has been on Eliquis and Xarelto both with significant rectal bleeding. Xarelto was most recent anticoagulant she was on and it did require blood transfusion as well as surgical intervention of internal hemorrhoid. Since that time she has been off of anticoagulation and exploring options for ligation of her left atrial appendage. Her other history includes hypertension, hyperlipidemia, diet-controlled diabetes, she is intolerant to beta-blockers despite her need for them and was recently found to have sick sinus syndrome with pauses and bradycardia following a loop recorder. Because of that she underwent permanent pacemaker placement dual-chamber on 11/25/2017 at [facility] [facility] She was seen by our freight car loader here, Dr. Webb, to discuss options for her atrial fibrillation etc. She has also been following closely with Dr. Bland closer to home and discussed options for intervention as well. She decided she was not interested in the watchman procedure due to the requirement of blood thinners prior and after surgery. She is interested in pursuing surgical option of atrial clip and was referred to us for this surgical intervention. On Wednesday she reported to her home emergency department for swelling and redness around her pacemaker site. She states she was started on prophylactic clindamycin after the pacemaker placement. Her site was marked in the ED and she has been watching it since. She states they did also do an ultrasound over the site while she was there. As part of your workup she had an echo in April of 2017 that I do not have the records of but I do have records of ehr 02/2016 echo that showed a preserved EF, normal LV and LA size and function, mild MR, no MS, no or AI, mild TR, and PAP of 25mmHg. She had a recent carotid in March 2017 that showed mild non obstructive disease bilaterally, (1-39% stenosis). She had a stress in 2015 that showed no ischemia or infarction, normal LV size and function with an EF of 70%. She is here today to discuss possible surgical interventions. Overall she states she is relatively asymptomatic from her afib and only recalls one time where she noticed her heart racing. she does recall, as stated above, more frequent symptoms of TIAs. She denies chest pain, palpitations, near -syncope, syncope, orthopnea, paroxysmal nocturnal dyspnea, lower extremity edema, chills, fever, myalgias, nonproductive cough, productive cough and sweats. This was all reviewed today by Dr. Vidal Longo and was discussed at length with Aga Bautista. Review of Systems Constitution: Negative. HENT: Positive for congestion. Eyes: Negative. Cardiovascular: Positive for irregular heartbeat, leg swelling and paroxysmal nocturnal dyspnea. Respiratory: Positive for shortness of breath. Endocrine: Negative. Hematologic/Lymphatic: Negative. Skin: Positive for nail changes and rash. Musculoskeletal: Positive for arthritis and stiffness. Gastrointestinal: Positive for bloating, change in bowel habit, constipation, heartburn and hemorrhoids. Genitourinary: Negative. Neurological: Positive for excessive daytime sleepiness, light-headedness and paresthesias. Psychiatric/Behavioral: Positive for depression. The patient is nervous/ anxious. Allergic/Immunologic: Positive for persistent infections. Past Medical History: Diagnosis Date Aortic regurgitation Cardiac device in situ 10/22/2017 Cardiac pacemaker 11/25/2017 Congestive heart failure (CHF) ([facility]) Diabetes mellitus ([facility]) GERD (gastroesophageal reflux disease) H/O hemorrhoids HLD (hyperlipidemia) 10/22/2017 HTN (hypertension) 10/22/2017 Hypothyroidism IBS (irritable bowel syndrome) PAF (paroxysmal atrial fibrillation) ([facility]) 10/22/2017 Rectal bleeding 10/29/2017 S/P laparoscopic fundoplication 2005 2/2 GERD SSS (sick sinus syndrome) ([facility]) 10/22/2017 TIA (transient ischemic attack) 10/22/2017 Past Surgical History: Procedure Laterality Date GASTRIC FUNDOPLICATION 2005 Gastric Banding Surgery PACEMAKER INSERTION 11/25/2017 APPENDECTOMY CHOLECYSTECTOMY COLECTOMY HIATAL HERNIA REPAIR HYSTERECTOMY MARTHA RECTAL SURGERY Prolapsed rectum repair THYROIDECTOMY Social History Social History Marital status: Spouse name: N/A Number of children: N/A Years of education: N/A Social History Main Topics Smoking status: Never Smoker Smokeless tobacco: Never Used Alcohol use No Drug use: No Sexual activity: Not on file Other Topics Concern Not on file Social History Narrative No narrative on file Family History Problem Relation Age of Onset Mental Illness Mother Stroke Mother Stroke Father Hypertension Father Cirrhosis Father Objective: acetaminophen (TYLENOL) 500 mg tablet Take [...] tablet Take 5 mg by mouth daily. clindamycin (CLEOCIN) 150 mg capsule Take 150 mg by mouth four times daily. Take with 8oz of water. cyanocobalamin (VITAMIN B-12, RUBRAMIN) 1,000 mcg/mL injection [...] meal and a full glass of water. sucralfate (CARAFATE) 1 gram tablet Take 1 g by mouth as Needed. temazepam (RESTORIL) 7.5 mg capsule Take 7.5 mg by mouth at bedtime as needed. trimethoprim (TRIMPEX) 100 mg tablet Take 100 mg by mouth daily. Vitals: 12/06/17 1219 BP: 106/70 Pulse: 88 SpO2: 98% Weight: 79.7 kg (175 lb 11.2 oz) Height: 1.676 m (5' 5.98") Body mass index is 28.37 kg/m. Physical Exam Constitutional: She is oriented to person, place, and time. She appears well- developed and well-nourished. No distress. Cardiovascular: Normal rate and regular rhythm. Murmur heard. Pulmonary/Chest: Effort normal and breath sounds normal. No respiratory distress. Abdominal: Soft. Bowel sounds are normal. She exhibits no distension. Musculoskeletal: Normal range of motion. She exhibits no edema. Neurological: She is alert and oriented to person, place, and time. Skin: Skin is warm and dry. She is not diaphoretic. Psychiatric: She has a normal mood and affect. Her behavior is normal. Judgment and thought content normal. Assessment: 1. PAF (paroxysmal atrial fibrillation) ([facility]) 2. Transient cerebral ischemia, unspecified type 3. Rectal bleeding 4. H/O hemorrhoids 5. SSS (sick sinus syndrome) ([facility]) 6. Cardiac pacemaker 7. Preop cardiovascular exam 8. S/P laparoscopic fundoplication 9. Aortic valve insufficiency, etiology of cardiac valve disease unspecified 10. Type 2 diabetes mellitus with complication, without long-term current use of insulin ([facility]) 11. Gastroesophageal reflux disease, esophagitis presence not specified 12. Hypertension, unspecified type 13. Hyperlipidemia, unspecified hyperlipidemia type 14. Hypothyroidism, unspecified type She will undergo a Left VATs Atriclip with intraoperative LORENA for ligation of her left atrial appendage in the setting of anticoagulation intolerance. She will need a repeat echo here at prior. We will also need to obtain her PFT records from a couple weeks ago. If we can not get these we will repeat them with her echo. She will also need to watch her pacemaker site and make sure the erythema has resolved prior to surgery. Lisy Fry APRN [facility] 12/06/2017 1:43 PM Assessment and Plan: I had a nice discussion with the patient. She is intolerant of anticoagulation and I have been asked to evaluate her for occlusion of her left atrial appendage. She has recently undergone implantation of a transvenous pacemaker. She appears to have a tape reaction at the implant site. I do not believe that it is infected. 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 She has never undergone cardiac or thoracic surgery in the past. Prior echocardiograms did not reveal left atrial appendage thrombus. I think that left VATS occlusion of her left atrial appendage is a reasonable option for her. She asked appropriate questions all of which were answered to her satisfaction. I have explained to her the main benefit of this procedure is to help reduce the chance of stroke given her atrial fibrillation history. Ideally , anticoagulation would be the treatment of choice, but unfortunately, the risk of anticoagulation appears to clearly outweigh the benefits in this case. I did explain to her the risks of surgical closure of the left atrial appendage including bleeding, , infection, renal failure, stroke, etc. All questions were answered to the patient's satisfaction. Will proceed with surgery electively in this encounter Miscellaneous Notes * Case Mgmt DC Plan - Eileen Mathews - 12/20/2017 11:30 AM CDT FILTER PRESS OPERATOR Note: [facility] will call 10 minutes prior to arrival to the unit [phone]. Patient will be picked up between 2-3 hours. If coach tour driver doesn't show up you may call Where is my Ride at [phone]. Per the request of BRITTNY Malone. Trip# [id number] Updated SW. Eileen Mathews Tubular Stock Glass Bulb Machine Former For additional assistance, please contact BRITTNY Malone *[phone]. * Case Mgmt DC Plan - Jeny Villalobos RN - 12/20/2017 10:55 AM CDT Case Management Progress Note NAME:Aga Bautista :[birth year] AGE: 82 y.o. ADMISSION DATE: 12/16/2017 DAYS ADMITTED: LOS: 4 days Todays Date: 12/20/2017 Plan-Anticipated DC today per team huddle. Interventions ? Support ? Info or Referral ? Discharge Planning [facility] called and notified them pt would DC today. Will send orders and AVS on DC. CM following to set up Medicaid ride at DC. ? Medication Needs ? Financial ? Legal ? Other Disposition ? Expected Discharge Date Expected Discharge Date: 12/19/17 ? Transportation Does the patient need discharge transport arranged?: Yes Does the patient use Medicaid Transportation?: Yes ? Discharge Disposition Anticipated DC home with HH. Jeny Villalobos RN, BSN Integrated Nurse Transportation Sales Consultant Pager * Care Plan - Brenda Daniels RN - 12/19/2017 6:21 PM CDT Problem: Discharge Planning Goal: Participation in plan of care Outcome: Goal Ongoing Updated on poc, questions answered. * Care Plan - Brenda Daniels RN - 12/18/2017 5:27 PM CDT Problem: Discharge Planning Goal: Participation in plan of care Outcome: Goal Ongoing Updated on poc, questions answered. Goal: Prepared for discharge Outcome: Goal Ongoing Anticipate dc tomorrow. Problem: Falls, High Risk of Goal: Absence of falls-Adult Patient Outcome: Goal Ongoing High fall bundle in place. * Care Plan - Vidhi Estrella RN - 12/18/2017 12:52 AM CDT Problem: Discharge Planning Goal: Participation in plan of care Outcome: Goal Ongoing Pt acknowledges current POC. No concerns at this time. Problem: Skin Integrity Goal: Skin integrity intact Outcome: Goal Ongoing Skin integrity intact (except surgical incisions/wounds). Warm, race appropriate, w/ normal turgor. Goal: Healing of skin (Wound & Incision) Outcome: Goal Ongoing Surgical incisions CDI. CT to bulb suction. No s/s of infection. Problem: Falls, High Risk of Goal: Absence of falls-Adult Patient Outcome: Goal Ongoing HFR bundle in place. Pt uses call light appropriately. * Case Mgmt DC Plan - Jeny Villalobos RN - 12/17/2017 12:51 PM CDT Case Management Admission Assessment NAME:Aga Bautista :1934 AGE: 82 y.o. ADMISSION DATE: 12/16/2017 DAYS ADMITTED: LOS: 1 day Todays Date: 12/17/2017 Nurse Transportation Sales Consultant Weekend Needs Instructions for CM W/E Staff: Please notify [facility] ([phone], [phone]) that pt is DC and fax AVS on DC. Teaching Needs Prior to DC: N/A Expected delivery of any needed medication/supplies/equipment: N/A Agency Expected SOC and Services Planned: 24-48 hrs post DC. Source of Information: Patient and Daughter Plan Plan: CM Assessment, Assist PRN with SW/NCM Services, Discharge Planning for Home Anticipated NCM met with pt in continuation of care and dc planning. NCM introduced self and NCM/SW roles. Provided contact information and encouraged pt to reach out to CM team with questions or concerns. POD- 1- Left video-assisted thoracoscopy and implantation of 45 mm atrial clip device Anticipated DC Wednesday. Pt will need a ride home with her Medicaid. Discussed HH. Pt would like to use [facility]. [facility] called and verified they can accept the pt on service. Referral/ Orders sent via [employer]. CM team continue to follow for DC planning and case progression Patient Address/Phone [address] [facility] [address] (home) Emergency Contact Extended Emergency Contact Information Primary Emergency Contact: Chika Delong [facility] Mobile Relation: Daughter Secondary Emergency Contact: Alex Bautista [facility] Relation: Son Healthcare Directive Healthcare Directive: No, patient does not have a healthcare directive Would patient like to fill out a (a new) Healthcare Directive?: No, patient declined Psych Advance Directive (Psych unit only): No, patient does not have a Psych Advance Directive Transportation Does the patient need discharge transport arranged?: Yes Does the patient use Medicaid Transportation?: Yes Expected Discharge Date Expected Discharge Date: 12/19/17 Living Situation Prior to Admission ? Living Arrangements Type of Residence: Home, independent Living Arrangements: Alone Bathroom Shower / Tub: Walk-in Shower How many levels in the residence?: 1 Can patient live on one level if needed?: Yes Does residence have entry and/or side stairs?: No (Lives on the 3rd story but has an elevator she can use. ) Assistance needed prior to admit or anticipated on discharge: Yes Who provides assistance or could if needed?: Pt lives alone and doesn't have family to assist, does have HCBS Can support system provide 24/7 care if needed?: No ? Level of Function Prior level of function: Independent ? Cognitive Abilities Cognitive Abilities: Alert and Oriented, Engages in problem solving and planning , Participates in decision making Financial Resources ? Coverage Primary Insurance: Medicare (Part A and B) Secondary Insurance: Medicaid ([facility] Medicaid [place] community plan) Additional Coverage: RX (Medicaid- Co Pays are affordable) ? Source of Income Source Of Income: Other half-way income ? Financial Assistance Needed? N/A Psychosocial Needs ? Mental Health Mental Health History: No ? Substance Use History Substance Use History Screen: No ? Other N/A Current/Previous Services ? PCP Esther Danielle III, , [facility] ? Pharmacy [facility][id number] - [place], [place] - [address] [facility] [address] [facility] ([facility]) [address] [place] [address] [address] ? Durable Medical Equipment Durable Medical Equipment at home: CPAP/BiPAP, Walker, Single Point Cane (Pt also has BP cuff, and O2 sat. ) ? Home Health Receiving home health: In the past Agency name: [facility] Would patient use this agency again?: Yes ? Hemodialysis or Peritoneal Dialysis Undergoing hemodialysis or peritoneal dialysis: No ? Tube/Enteral Feeds Receive tube/enteral feeds: No ? Infusion Receive infusions: No ? Private Duty Private duty help used: No ? Home and Community Based Services Home and community based services: Yes Agency name: [facility]- Medicaid HCBS assistance hours/week: 27.5 Provider Schedule: Pt gets 5 hrs/day -wed Services provided: Cleaning, Cooking, shopping, laundry ? Akil White Akil White: No ? Hospice Hospice: No ? Outpatient Therapy PT: No OT: No PERINATAL EDUCATOR: No ? [facility] Facility/Residential SNF: In the past When did patient receive care?: Pt has used [facility] in [place], [place]. Would patient return for future services?: Yes ? Inpatient Rehab IPR: No ? Long-Term Acute Care Hospital LTACH: No ? Acute Hospital Stay Acute Hospital Stay: In the past Was patient's stay within the last 30 days?: No Jeny Villalobos RN, BSN Integrated Nurse Transportation Sales Consultant Pager [phone] * Operative Report (Direct Entry) - Vidal Longo MD - 12/16/2017 2:21 PM CDT OPERATIVE REPORT Name: Aga Bautista is a 82 y.o. female : 1935 DATE OF OPERATION: 12/16/2017 Surgeon(s) and Role: * Vidal Longo MD - Primary * Wilmar De Luna MD - Assisting HAYLEY Connolly Preoperative Diagnosis: Atrial fibrillation, unspecified type (HCC) [I48.91] Post-op Diagnosis * Atrial fibrillation, unspecified type (HCC) [I48.91] Procedure: Left video-assisted thoracoscopy and implantation of 45 mm atrial clip device Anesthesia Type: *General Description and Findings of Operative Procedure: After informed written consent was obtained, the patient was brought to the operating room and positioned supine. A transesophageal echocardiogram was performed and we verified that there was no existing thrombus in the left atrial appendage. The left atrial appendage was somewhat small. The patient was then turned left side up and prepped and draped in sterile fashion. A 12 mm access incision was made in the seventh interspace, midaxillary line and the camera was inserted into the left pleural space. There were no adhesions. Next, an access incision was made at the fifth interspace and a soft tissue retractor inserted. The pericardium was opened longitudinally just posterior to the phrenic nerve. The left atrial appendage was easily identified and brought into view. Next, a 45 mm endoscopic atrial clip device was advanced into the pleural space and utilized to encircle the base of the left atrial appendage. The appendage was easily encircled, and the atrial clip device was utilized to compress the base of the appendage. We confirmed on transesophageal echocardiogram that the left atrial appendage was completely closed. There was a very small residual pocket, less than 0.5 cm on the atrial side. The ventricular device was released. The delivery mechanism removed and a 19 Qatari Wagner drain was inserted and connected to suction. Exparel was utilized for local analgesia in the intercostal spaces and in the incisions. The lung was allowed to reinflate and the incision was closed with layers of absorbable suture. The patient was then allowed to emerge from anesthesia and transported to the PACU in stable condition Estimated Blood Loss: No blood loss documented. Specimen(s) Removed/Disposition: * No specimens in log * Attestation: I performed this procedure without the involvement of a resident. Vidal Longo MD * Procedures (Immed Post or Bedside) - Gabriela Zuñiga PA-C - 12/16/2017 1: 02 PM CDT Brief Operative Note Name: Aga Bautista is a 82 y.o. female : 1935 DATE OF OPERATION: 12/16/2017 Date: 12/16/2017 Preoperative Dx: Atrial fibrillation, unspecified type (HCC) [I48.91] Post-op Diagnosis * Atrial fibrillation, unspecified type (HCC) [I48.91] Procedure(s) (LRB): PERCUTANEOUS CLOSURE LEFT ATRIAL APPENDAGE WITH ENDOCARDIAL IMPLANT (AtriClip and LORENA) Left video-assisted thoracoscopic surgery (Left) Anesthesia Type: GETA Surgeon(s) and Role: * Vidal Longo MD - Primary * Wilmar De Luna MD - Assisting * Gabriela Zuñiga PA-C - Assisting Antibiotics: Vanc 1250mg @ 1158 Findings: Refer to operative report Estimated Blood Loss: No blood loss documented. Specimen(s) Removed/Disposition: None Complications: None Implants: AtriClip 45mm Drains: Osmani-Winchester Drain: #1=2 mL Disposition: PACU - stable Gabriela Zuñiga PA-C Pager [phone] in this encounter Plan of Treatment Not on fileas of this encounter Procedures Procedure Name Priority Date/Time Associated Diagnosis Comments ECG-SCAN 12/21/2017 Results for this 1:13 PM [...] CDT procedure are in the results section. CARDIAC CATH REPORT Routine 12/15/2017 Atrial fibrillation, 8:29 AM CDT unspecified type (HCC) in this encounter Results * CHEST 2 [...] PM. Performing Organization Address City/State/Zipcode Phone Number RAD RESULTS * ECG-SCAN (12/21/2017 1:13 PM) Narrative Performed At Ordered by an unspecified provider. * TELEMETRY STRIPS-SCAN (12/21/2017 12:52 PM) Narrative Performed At Ordered by an unspecified provider. * CHEST SINGLE VIEW (12/20/2017 6:08 AM) Impressions Performed At Stable mild cardiomegaly with mild left lower lung atelectasis. RAD RESULTS Approved by Wong Ross M.D. [...] City/State/Zipcode Phone Number [facility] RESULTS * BASIC METABOLIC PANEL (12/20/2017 4:28 AM) Sodium 135 (L) 137 - 147 MMOL/L [facility] Potassium 3.8 3.5 - 5.1 MMOL/L [facility] Chloride 105 98 - 110 MMOL/L [facility] CO2 23 21 - 30 MMOL/L [facility] Anion Gap 7 3 - 12 [facility] Glucose 125 (H) 70 - [...] for questions. Specimen Blood Performing Organization Address City/[facility]/Zipcode Phone Number [facility] [address] [phone] * CBC (12/20/2017 4:28 AM) White Blood Cells 7.3 4.5 - 11.0 K/UL [facility] RBC 4.46 4.0 - 5.0 M/UL [facility] Hemoglobin 10.5 (L) 12.0 - 15.0 GM/DL [facility] Hematocrit 32.5 (L) 36 - 45 % [facility] MCV 73.0 (L) 80 - 100 [facility] MCH 23.5 (L) 26 - 34 PG [facility] MCHC 32.2 32.0 - 36.0 G/DL [facility] RDW 18.6 (H) 11 - 15 % [facility] Platelet Count 258 150 - 400 K/UL [facility] MPV 7.9 7 - 11 [facility] Specimen Blood Performing Organization Address City/[facility]/Zipcode Phone Number [facility] [address] [place] [address] * CHEST SINGLE VIEW (12/19/2017 12:17 PM) Impressions Performed At Stable chest radiograph demonstrating cardiomegaly without evidence of [facility] RAD RESULTS congestive failure. Progressing gaseous distention of the bowel in the upper abdomen. Abdominal radiographs should be obtained for further evaluation. Finalized by Brannon Steward M.D. on 12/19/2017 2:08 PM. Dictated by Brannon Steward M.D. on 12/19/2017 2:06 PM. Narrative Performed At CHEST SINGLE VIEW [facility] RAD RESULTS History: chest tube removal. Technique: Single portable AP upright view of the chest was obtained. Comparison: Comparison is made to an examination of earlier the same day.. Findings: There is generalized cardiomegaly as well as ectasia and tortuosity of the thoracic aorta. There is no evidence of acute vascular congestion or pulmonary edema. Dual-chamber pacemaker with its control unit left chest wall is again identified and is unchanged in position. The tips of the left atrial and left ventricular leads are unchanged in their positions. An atrial appendage clip remains in place. There is progressing gaseous distention of the loops of bowel in the upper abdomen. Procedure Note Interface, Radiant Results - 12/19/2017 2:11 PM CDT CHEST SINGLE VIEW History: chest tube removal. Technique: Single portable AP upright view of the chest was obtained. Comparison: Comparison is made to an examination of earlier the same day.. Findings: There is generalized cardiomegaly as well as ectasia and tortuosity of the thoracic aorta. There is no evidence of acute vascular congestion or pulmonary edema. Dual-chamber pacemaker with its control unit left chest wall is again identified and is unchanged in position. The tips of the left atrial and left ventricular leads are unchanged in their positions. An atrial appendage clip remains in place. There is progressing gaseous distention of the loops of bowel in the upper abdomen. IMPRESSION Stable chest radiograph demonstrating cardiomegaly without evidence of congestive failure. Progressing gaseous distention of the bowel in the upper abdomen. Abdominal radiographs should be obtained for further evaluation. Finalized by Brannon Steward M.D. on 12/19/2017 2:08 PM. Dictated by Brannon Steward M.D. on 12/19/2017 2:06 PM. Performing Organization Address City/State/Zipcode Phone Number [facility] RAD RESULTS * CHEST SINGLE VIEW (12/19/2017 6:10 AM) Impressions Performed At Moderately enlarged cardiac silhouette without vascular congestion. [facility] RAD RESULTS Finalized by TATYANA ARRIETA M.D. on 12/19/2017 1:36 PM. Dictated by TATYANA ARRIETA M.D. on 12/19/2017 1:35 PM. Narrative Performed At CHEST SINGLE VIEW [facility] RAD RESULTS . Clinical history: atelectasis. Comparison: Chest radiograph of one day earlier . Findings: Intravenous limited by patient rotation. A cardiac conduction device and left thoracostomy tube remain in place. A left atrial appendage clip is again noted. The cardiac silhouette remains moderately enlarged without vascular congestion. Mild bibasilar atelectasis is seen. No significant pleural effusion is seen. No pneumothorax is visualized. . Procedure Note Interface, Radiant Results - 12/19/2017 1:39 PM CDT CHEST SINGLE VIEW . Clinical history: atelectasis. Comparison: Chest radiograph of one day earlier . Findings: Intravenous limited by patient rotation. A cardiac conduction device and left thoracostomy tube remain in place. A left atrial appendage clip is again noted. The cardiac silhouette remains moderately enlarged without vascular congestion. Mild bibasilar atelectasis is seen. No significant pleural effusion is seen. No pneumothorax is visualized. . IMPRESSION Moderately enlarged cardiac silhouette without vascular congestion. Finalized by TATYANA ARRIETA M.D. on 12/19/2017 1:36 PM. Dictated by TATYANA ARRIETA M.D. on 12/19/2017 1:35 PM. Performing Organization Address City/State/Zipcode Phone Number [facility] RESULTS * BASIC METABOLIC PANEL (12/19/2017 4:18 AM) Sodium 135 (L) 137 - 147 MMOL/L [facility] Potassium 3.7 3.5 - 5.1 MMOL/L [facility] Chloride 105 98 - 110 MMOL/L [facility] CO2 21 21 - 30 MMOL/L [facility] Anion Gap 9 3 - 12 [facility] Glucose 122 (H) 70 - 100 MG/DL [facility] Blood Urea Nitrogen 22 7 - 25 MG/DL [facility] Creatinine 1.23 (H) 0.4 - 1.00 MG/DL [facility] Calcium 9.5 8.5 - 10.6 MG/DL [facility] eGFR Non 42 (L) >60 mL/min [facility] Comment: The eGFR is not validated for use in drug dosing adjustments.Continue to use estimated creatinine clearance per dosing reference text.Please contact the Clinical Pharmacist for questions. eGFR 51 (L) >60 mL/min [facility] Comment: The eGFR is not validated for use in drug dosing adjustments.Continue to use estimated creatinine clearance per dosing reference text.Please contact the Clinical Pharmacist for questions. Specimen Blood Performing Organization Address City/[facility]/Zipcode Phone Number [facility] [address] [place] [address] * CBC (12/19/2017 4:18 AM) White Blood Cells 10.1 4.5 - 11.0 K/UL [facility] RBC 4.58 4.0 - 5.0 M/UL [facility] Hemoglobin 10.9 (L) 12.0 - 15.0 GM/DL [facility] Hematocrit 33.7 (L) 36 - 45 % [facility] MCV 73.6 (L) 80 - 100 FL [facility] MCH 23.7 (L) 26 - 34 PG [facility] MCHC 32.2 32.0 - 36.0 G/DL [facility] RDW 18.5 (H) 11 - 15 % [facility] Platelet Count 261 150 - 400 K/UL [facility] MPV 8.0 7 - 11 FL [facility] Specimen Blood Performing Organization Address City/[facility] Phone Number [facility] [address] [place] [address] * CHEST SINGLE VIEW (12/18/2017 8:42 AM) Impressions Performed At Moderately enlarged cardiac silhouette without vascular congestion. [facility] RESULTS Finalized by TATYANA ARRIETA M.D. on 12/18/2017 9:54 AM. Dictated by TATYANA ARRIETA M.D. on 12/18/2017 9:53 AM. Narrative Performed At CHEST SINGLE VIEW [facility] RESULTS . Clinical history: atelectasis. Comparison: Chest radiograph of one day earlier . Findings: A cardiac conduction device and left thoracostomy tube remain in place. Left atrial appendage clip is again noted. The cardiac silhouette remains moderately enlarged without vascular congestion. Mild bibasilar atelectasis is present. No pleural effusion or pneumothorax is seen. There is persistent gaseous distention of upper abdominal bowel loops. . Procedure Note Interface, Radiant Results - 12/18/2017 9:58 AM CDT CHEST SINGLE VIEW . Clinical history: atelectasis. Comparison: Chest radiograph of one day earlier . Findings: A cardiac conduction device and left thoracostomy tube remain in place. Left atrial appendage clip is again noted. The cardiac silhouette remains moderately enlarged without vascular congestion. Mild bibasilar atelectasis is present. No pleural effusion or pneumothorax is seen. There is persistent gaseous distention of upper abdominal bowel loops. . IMPRESSION Moderately enlarged cardiac silhouette without vascular congestion. Finalized by TATYANA ARRIETA M.D. on 12/18/2017 9:54 AM. Dictated by TATYANA ARRIETA M.D. on 12/18/2017 9:53 AM. Performing Organization Address City/State/Zipcode Phone Number [facility] RESULTS * CHEST 2 VIEWS (12/17/2017 7:10 AM) Impressions Performed At Moderate cardiomegaly with improved aeration in the lower lungs bilaterally and [facility] RAD RESULTS significant improvement in small right pleural effusion. Approved by Wong Ross M.D. on 12/17/2017 11:28 AM By my electronic signature, I attest that I have personally reviewed the images for this examination and formulated the interpretations and opinions expressed in this report Finalized by Brannon Steward M.D. on 12/17/2017 12:47 PM. Dictated by Wong Ross M.D. on 12/17/2017 10:26 AM. Narrative Performed At CHEST 2 VIEWS [facility] RESULTS Clinical history: s/p atri-clip Comparison: Chest x-ray December 16, 2017 Findings: Prior left atrial appendage clip placement. Left-sided dual-lead cardiac conduction device remains in place. A left-sided thoracostomy tube remains in place. The heart is moderately enlarged. Improving pulmonary vascular congestion. Mild elevation of the left hemidiaphragm. Interval improved aeration within both lower lungs. Significant improvement in the partially loculated right pleural effusion which is now not well-visualized. No pneumothorax. Procedure Note Interface, Radiant Results - 12/17/2017 12:51 PM CDT CHEST 2 VIEWS Clinical history: s/p atri-clip Comparison: Chest x-ray December 16, 2017 Findings: Prior left atrial appendage clip placement. Left-sided dual-lead cardiac conduction device remains in place. A left-sided thoracostomy tube remains in place. The heart is moderately enlarged. Improving pulmonary vascular congestion. Mild elevation of the left hemidiaphragm. Interval improved aeration within both lower lungs. Significant improvement in the partially loculated right pleural effusion which is now not well-visualized. No pneumothorax. IMPRESSION Moderate cardiomegaly with improved aeration in the lower lungs bilaterally and significant improvement in small right pleural effusion. Approved by Wong Ross M.D. on 12/17/2017 11:28 AM By my electronic signature, I attest that I have personally reviewed the images for this examination and formulated the interpretations and opinions expressed in this report Finalized by Brannon Steward M.D. on 12/17/2017 12:47 PM. Dictated by Wong Ross M.D. on 12/17/2017 10:26 AM. Performing Organization Address City/State/Zipcode Phone Number RAD RESULTS * BASIC METABOLIC PANEL (12/17/2017 4:24 AM) Sodium 134 (L) 137 - 147 MMOL/L [facility] Potassium 4.1 3.5 - 5.1 MMOL/L [facility] Chloride 106 98 - 110 MMOL/L [facility] CO2 22 21 - 30 MMOL/L [facility] Anion Gap 6 3 - 12 [facility] Glucose 115 (H) 70 - 100 MG/DL [facility] Blood Urea Nitrogen 16 7 - 25 MG/DL [facility] Creatinine 0.84 0.4 - 1.00 MG/DL [facility] Calcium 9.0 8.5 - 10.6 MG/DL [facility] eGFR Non >60 >60 mL/min [facility] Comment: [...] Blood Performing Organization Address City/State/Zipcode Phone Number MAIN LAB [address] [place] [address] * CBC (12/17/2017 4:24 AM) White Blood Cells 9.6 4.5 - 11.0 K/UL [facility] RBC 4.17 4.0 - 5.0 M/UL [facility] Hemoglobin 9.7 (L) 12.0 - 15.0 GM/DL [facility] Hematocrit 30.3 (L) 36 - 45 % [facility] MCV 72.6 (L) 80 - 100 FL [facility] MCH 23.2 (L) 26 - 34 PG [facility] MCHC 32.0 32.0 - 36.0 G/DL [facility] RDW 18.3 (H) 11 - 15 % [facility] Platelet Count 235 150 - 400 K/UL [facility] MPV 7.8 7 - 11 FL [facility] Specimen Blood Performing Organization Address City/State/Zipcode Phone Number MAIN LAB [address] [place] [address] * CHEST SINGLE VIEW (12/16/2017 2:25 PM) Impressions Performed At Moderate cardiomegaly with mild pulmonary venous congestion. Poor depth of [facility] RAD RESULTS inspiration with areas of atelectasis bilaterally. Probable small loculated right pleural effusion. Approved by Rigo Mcleod M.D. on 12/16/2017 4:18 PM By my electronic signature, I attest that I have personally reviewed the images for this examination and formulated the interpretations and opinions expressed in this report Finalized by Mohamud Frazier M.D. on 12/16/2017 4:32 PM. Dictated by Rigo Mcleod M.D. on 12/16/2017 3:53 PM. Narrative Performed At CHEST SINGLE VIEW [facility] RAD RESULTS Clinical Indication: Female, 82 years old. Postoperative atrial clip. Comparison: Chest redictated December 16, 2017 at 1:19 PM. Findings: Prior left atrial appendage clip placement. Left-sided dual-lead cardiac conduction device remains in place. A left-sided thoracostomy tube remains in place. The heart size is moderately enlarged with mild pulmonary venous congestion. Poor depth of inspiration with bilateral areas of atelectasis. Probable small loculated right pleural effusion. There is no pneumothorax. Dilated loops of bowel are again noted in the left upper quadrant abdomen. Procedure Note Interface, Radiant Results - 12/16/2017 4:36 PM CDT CHEST SINGLE VIEW Clinical Indication: Female, 82 years old. Postoperative atrial clip. Comparison: Chest redictated December 16, 2017 at 1:19 PM. Findings: Prior left atrial appendage clip placement. Left-sided dual-lead cardiac conduction device remains in place. A left-sided thoracostomy tube remains in place. The heart size is moderately enlarged with mild pulmonary venous congestion. Poor depth of inspiration with bilateral areas of atelectasis. Probable small loculated right pleural effusion. There is no pneumothorax. Dilated loops of bowel are again noted in the left upper quadrant abdomen. IMPRESSION Moderate cardiomegaly with mild pulmonary venous congestion. Poor depth of inspiration with areas of atelectasis bilaterally. Probable small loculated right pleural effusion. Approved by Rigo Mcleod M.D. on 12/16/2017 4:18 PM By my electronic signature, I attest that I have personally reviewed the images for this examination and formulated the interpretations and opinions expressed in this report Finalized by Mohamud Frazier M.D. on 12/16/2017 4:32 PM. Dictated by Rigo Mcleod M.D. on 12/16/2017 3:53 PM. Performing Organization Address City/State/Zipcode Phone Number [facility] RAD RESULTS * CHEST SINGLE VIEW (12/16/2017 1:31 PM) Impressions Performed At Limited exam due to patient rotation, demonstrating mildly enlarged cardiac [facility] RAD RESULTS silhouette with vascular congestion. Apparent widening of the mediastinum is likely exaggerated by rotation, however PA and lateral views of the chest are recommended for further evaluation. Approved by Ed Orr MD on 12/16/2017 3:43 PM By my electronic signature, I attest that I have personally reviewed the images for this examination and formulated the interpretations and opinions expressed in this report Finalized by TATYANA ARRIETA M.D. on 12/16/2017 5:00 PM. Dictated by Ed Orr MD on 12/16/2017 2:03 PM. Narrative Performed At CHEST SINGLE VIEW [facility] RAD RESULTS Clinical history: 82-year-old female chest tube placement Comparison: CXR December 15, 2017 1515 Findings: Evaluation of the chest is limited by patient rotation. Cardiac conduction device remains in place. Interval placement of left chest tube and left atrial appendage clip. Cardiac silhouette is mildly enlarged with apparent widening of the mediastinum, likely exaggerated by positioning. There is pulmonary vascular congestion. Patchy opacities are seen within both lung bases, likely atelectasis. No pneumothorax. Dilated loops of bowel are again noted in the upper abdomen. Procedure Note Interface, Radiant Results - 12/16/2017 5:03 PM CDT CHEST SINGLE VIEW Clinical history: 82-year-old female chest tube placement Comparison: CXR December 15, 2017 1515 Findings: Evaluation of the chest is limited by patient rotation. Cardiac conduction device remains in place. Interval placement of left chest tube and left atrial appendage clip. Cardiac silhouette is mildly enlarged with apparent widening of the mediastinum, likely exaggerated by positioning. There is pulmonary vascular congestion. Patchy opacities are seen within both lung bases, likely atelectasis. No pneumothorax. Dilated loops of bowel are again noted in the upper abdomen. IMPRESSION Limited exam due to patient rotation, demonstrating mildly enlarged cardiac silhouette with vascular congestion. Apparent widening of the mediastinum is likely exaggerated by rotation, however PA and lateral views of the chest are recommended for further evaluation. Approved by Ed Orr MD on 12/16/2017 3:43 PM By my electronic signature, I attest that I have personally reviewed the images for this examination and formulated the interpretations and opinions expressed in this report Finalized by TATYANA ARRIETA M.D. on 12/16/2017 5:00 PM. Dictated by Ed Orr MD on 12/16/2017 2:03 PM. Performing Organization Address City/[facility] Phone Number RAD RESULTS * POC GLUCOSE (12/16/2017 1:29 PM) Glucose, POC 128 (H) 70 - 100 MG/DL MAIN LAB Performing Organization Address City/[facility] Phone Number [facility] [address] [place] [address] * DEVICE EVALUATION - PPM (12/16/2017 9:45 AM) Generator Grooving Lathe Tender [employer] OTHER OUTSIDE LAB Generator Model # [place] S DR RAMOS [id number] OTHER OUTSIDE LAB Generator Serial # [id number] OTHER OUTSIDE LAB Generator Implnat Date 25-Nov-2017 OTHER OUTSIDE LAB Device Implanted By Dr. Bland [phone] OTHER OUTSIDE LAB ILR Symptom Duration 4 [...] LAB EP Device Followed by DR. HOLLINGSWORTH [phone] OTHER OUTSIDE LAB Name Device [place] [facility] OTHER OUTSIDE LAB Transmitter Compatible Known Diagnosed AFib Yes OTHER OUTSIDE LAB On Anticoagulation No OTHER OUTSIDE LAB On AntiCoag Date high risk (watchman work-up) OTHER OUTSIDE LAB Device Mode AAIR<=>DDDR OTHER OUTSIDE LAB Mode Switch Status On OTHER OUTSIDE LAB Lower Rate Limit 60 OTHER OUTSIDE LAB Mode Switch (bpm) >171 OTHER OUTSIDE LAB Atrial Lead Grooving Lathe Tender [employer] OTHER OUTSIDE LAB Atrial Lead Model # 4076 [employer] 45cm OTHER OUTSIDE LAB Atrial Lead Serial # [id number] OTHER OUTSIDE LAB Atrial Lead Implant Date 25-Nov-2017 OTHER OUTSIDE LAB RV Lead Grooving Lathe Tender [employer] OTHER OUTSIDE LAB RV Lead Model # 5076 [employer] Novus 52cm OTHER OUTSIDE LAB RV Lead Serial # [id number] OTHER OUTSIDE LAB RV Lead Implant Date 25-Nov-2017 OTHER OUTSIDE LAB Underlying Rhythm SR 65bpm OTHER OUTSIDE LAB Upper Rate Limit 130 OTHER OUTSIDE LAB Sensor Rate Limit 130 OTHER OUTSIDE LAB Pace AV Delay 180 OTHER OUTSIDE LAB Sense AV Delay 150 OTHER OUTSIDE LAB -VS% 2.6 OTHER OUTSIDE LAB -INSECT CONTROL AIDE% 0.3 OTHER OUTSIDE LAB -VS% 84.2 OTHER OUTSIDE LAB AP-INSECT CONTROL AIDE% 12.8 OTHER OUTSIDE LAB # Mode S. [...] OTHER OUTSIDE LAB Pre-op device evaluation in [facility] full check (please see attached PDF for [...] review/co-sign (report left at bedside w/RN in [facility]). Performing Organization Address City/State/Zipcode Phone Number OTHER OUTSIDE LAB * BLOOD TYPE CONFIRMATION - ORDER ONLY IF REQUESTED BY LAB (12/16/2017 9:09 AM) ABO/RH(D) O POS MAIN LAB Specimen Blood Performing Organization Address City/[facility]/Zipcode Phone Number MAIN LAB [address] [place] [address] * POC GLUCOSE (12/16/2017 9:08 AM) Glucose, POC 118 (H) 70 - 100 MG/DL MAIN LAB Performing Organization Address City/[facility]/Zipcode Phone Number MAIN LAB [address] [place] [address] * CULTURE-URINE W/SENSITIVITY (12/16/2017 8:48 AM) Battery Name URINE CULTURE [facility] Specimen Description URINE [facility] Special Requests NONE [facility] Culture >100,000 organisms/ml [facility] LACTOBACILLUS SPECIES <10,000 organisms/ml MIXED CONTAMINANTS Report Status FINAL MAIN LAB 12/17/2017 Specimen Urine Performing Organization Address [facility] Phone Number [facility] [address] [place] [address] * UA REFLEX CULTURE LABEL (12/16/2017 8:48 AM) UA Reflex Culture LAB LABEL [facility] Specimen Urine Performing Organization Address [facility] Phone [facility] [address] [place] [address] * URINALYSIS MICROSCOPIC REFLEX TO CULTURE (12/16/2017 [...] PACKED [facility] Renal Epitheilial 0-2 MAIN LAB Specimen Urine Performing Organization Address [facility] Phone Number [facility] [address] [place] [address] * URINALYSIS DIPSTICK REFLEX TO CULTURE (12/16/2017 8:48 AM) Color,UA BRADY [facility] Turbidity,UA 2+ (A) CLEAR-CLEAR [facility] Specific [place]-Urine 1.021 1.003 - 1.035 [facility] MAIN [facility] [...] MAIN LAB Specimen Urine Performing Organization Address City/State/Zipcode Phone Number MAIN LAB [address] [place] [address] in this encounter Visit Diagnoses Diagnosis Paroxysmal atrial fibrillation (HCC) - Primary Atrial fibrillation Atrial fibrillation, unspecified type (HCC) Aortic valve insufficiency, etiology of cardiac valve disease unspecified History of GI bleed Personal history of other diseases of digestive system Diabetes mellitus (HCC) Type II or unspecified type diabetes mellitus without mention of complication , not stated as uncontrolled Cardiac pacemaker Cardiac pacemaker in situ SSS (sick sinus syndrome) (HCC) Sinoatrial node dysfunction TIA (transient ischemic attack) Unspecified transient cerebral ischemia Cardiac device in situ Unspecified cardiac device in situ GERD (gastroesophageal reflux disease) Esophageal reflux HLD (hyperlipidemia) Other and unspecified hyperlipidemia HTN (hypertension) Unspecified essential hypertension Acute cystitis without hematuria Acute cystitis Admitting Diagnoses Diagnosis Atrial fibrillation, unspecified type (HCC) - Atrial fibrillation, unspecified type (HCC) [I48.91] Atrial fibrillation (HCC) Administered Medications Medication Order MAR Action Action Date Dose Rate Site acetaminophen (TYLENOL) oral solution 1,000 mg 1,000 mg, Per NG tube, EVERY 6 HOURS WHILE AWAKE, 15 doses, First dose on Wed12/16/17 at 1600, Last dose on Wed12/21/17 at 0900, TOTAL ACETAMINOPHEN DOSE NOT TO EXCEED 4GM DAILY acetaminophen (TYLENOL) tablet 1,000 mg Given 12/18/2017 1,000 mg 1,000 mg, Oral, EVERY 6 HOURS WHILE 20:26 CDT AWAKE, 15 doses, First dose on Wed12/16/17 at 1600, Last dose on Wed12/21/17 at 0900, TOTAL ACETAMINOPHEN DOSE NOT TO EXCEED 4GM DAILY Given 12/19/2017 1,000 mg 09:41 CDT Given 12/20/2017 500 mg 09:21 CDT ALPRAZolam (XANAX) tablet 0.25 mg Given 12/17/2017 0.25 mg 0.25 mg, Oral, AT BEDTIME PRN, Starting 08:27 CDT Ella 12/16/17 at 1552, Until 12/20/17 at 1531, Agitation PO Given 12/17/2017 0.25 mg 21:17 CDT amiodarone (CORDARONE) tablet 100 mg Given 12/18/2017 100 mg 100 mg, Oral, DAILY, First dose on Wed 09:10 CDT 12/17/17 at 0900, Until Discontinued Given 12/19/2017 100 mg 09:41 CDT Given 12/20/2017 100 mg 09:22 CDT amLODIPine (NORVASC) tablet 5 mg Given 12/18/2017 5 mg 5 mg, Oral, DAILY, First dose on Wed 09:09 CDT 12/17/17 at 0900, Until Discontinued, NURSING: Please educate patient and document: Do not give with grapefruit juice. Given 12/19/2017 5 mg 09:41 CDT Given 12/20/2017 5 mg 09:23 CDT aspirin tablet 325 mg Given 12/16/2017 325 mg 325 mg, Oral, DAILY, First dose on Ella 21:06 CDT 12/16/17 at 2200, Until Discontinued, Give first dose 8 hours after surgery. May give per NG tube. Given 12/17/2017 325 mg 08:33 CDT bupivacaine liposome (PF) (EXPAREL) 266 Given 12/16/2017 266 mg Chest, Left mg/20 mL (13.3 mg/mL) injection 20 mL 12:49 CDT 20 mL (266 mg), SEE ADMIN INSTRUCTIONS, ONCE IN OR, 1 dose, Ella 12/16/17 at 1215, Inject slowly into tissues with trained technique. Note: Bupivacaine, ropivacaine, and lidocaine contraindicated within 96 hours of administration of this drug. Apply Exparel wristband to patient wrist with date and time of Exparel administration. DO NOT remove wristband for 96 hours from date and time administered. >>>>>>>>>>>>>>>EXPAREL WRISTBAND REQUIRED<<<<<<<<<<<<<<< NOTE: This is a HIGH ALERT Medication. famotidine (PEPCID) tablet 20 mg Given 12/16/2017 20 mg 20 mg, Oral, TWICE DAILY, First dose on 20:54 CDT Ella 12/16/17 at 2100, Until Discontinued Given 12/17/2017 20 mg 08:32 CDT FENTANYL CITRATE (PF) 50 MCG/ML IJ SOLN (Cabelinat Override) NOW, 1 dose, Ella 8/9/18 at 1315, Created by cabinet override fentaNYL citrate PF (SUBLIMAZE) Given 12/16/2017 25 mcg injection 25 mcg 13:31 CDT 25 mcg, Intravenous, EVERY 5 MIN PRN, Starting Ella 12/16/17 at 1327, Until Ella 12/16/17 at 1551, Pain Injectable, For Pain Score < 4, Maximum total dose of 200 mcg Hold for RR < 10 Given 12/16/2017 25 mcg 15:36 CDT fentaNYL citrate PF (SUBLIMAZE) Given 12/16/2017 25 mcg injection 25-50 mcg 13:25 CDT 25-50 mcg, Intravenous, EVERY 1 HOUR PRN, Starting Ella 12/16/17 at 1317, Until 12/20/17 at 0720, Pain Injectable, Give if patient not tolerating PO, NPO, or vomiting. Given 12/16/2017 25 mcg 14:33 CDT furosemide (LASIX) injection 40 mg Given 12/18/2017 40 mg 40 mg, 4 mL, Intravenous, ONCE, 1 dose, 10:32 CDT 12/18/17 at 1000, PROTECT FROM LIGHT heparin (porcine) PF syringe 5,000 Units Given 12/19/2017 5,000 Units Arm, Left 5,000 Units, Subcutaneous, THREE TIMES 09:41 CDT DAILY, First dose on Wed12/17/17 at 0900, Until Discontinued, First dose given post-op at 2100. NOTE: This is a HIGH ALERT Medication. Given 12/19/2017 5,000 Units Arm, Right 17:26 CDT Given 12/19/2017 5,000 Units Abdomen:LLQ 21:20 CDT HYDROMORPHONE (PF) 2 MG/ML IJ SYRG (Cabinet Override) NOW, 1 dose, Ella 12/16/17 at 1330, Created by cabinet override HYDROmorphone injection (DILAUDID) Given 12/16/2017 0.5 mg injection 0.5 mg 13:45 CDT 0.5 mg, Intravenous, EVERY 10 MIN PRN, Starting Ella 12/16/17 at 1327, Until Ella 12/16/17 at 1551, Pain Injectable, For Pain Score 4-6, Maximum total dose of 2 mg Hold for RR < 10 latanoprost (XALATAN) 0.005 % ophthalmic Given 12/17/2017 1 drop solution 1 drop 20:57 CDT 1 drop, Both Eyes, AT BEDTIME DAILY, First dose on Ella 12/16/17 at 2100, Until Discontinued, AFTER BREAKING TAMPER EVIDENT SEAL [CLEAR LID], THROW AWAY THE CLEAR LID LEAVING THE COLORED LID. DO NOT PUT THE CLEAR LID BACK OVER THE COLORED LID. Given 12/18/2017 1 drop 20:27 CDT Given 12/19/2017 1 drop 21:23 CDT levoFLOXacin (LEVAQUIN) tablet 500 mg Given 12/16/2017 500 mg 500 mg, Oral, DAILY, 3 doses, First dose 10:05 CDT on Ella 12/16/17 at 1045, Last dose on 12/18/17 at 0900, NURSING: Please educate patient and document: Give 1 hour before or 2 hours after meals. If patient is receiving tube feedings, hold tube feedings 1 hour before and 2 hours after dose. Do not give within 2 hours of antacids, magnesium, calcium, iron, zinc, or vitamins containing these minerals. LEVOFLOXACIN 500 MG PO TAB (Cabinet Override) NOW, 1 dose, Ella 12/16/17 at 1015, Created by ebony thurman levothyroxine (SYNTHROID) tablet 50 mcg Given 12/18/2017 50 mcg 50 mcg, Oral, DAILY 30MIN BEFORE 06:05 CDT BREAKFAST, First dose on Wed12/17/17 at 0630, Until Discontinued, Give 1 hour before a meal. If patient is receiving tube feedings, hold tube feed 1hr before and 1hr after dose. Given 12/19/2017 50 mcg 06:58 CDT Given 12/20/2017 50 mcg 07:03 CDT LIDOCAINE (PF) 10 MG/ML (1 %) IJ SOLN (Cabinet Override) NOW, 1 dose, Ella 12/16/17 at 0830, Created by cabinet amyide lidocaine PF 1% (10 mg/mL) injection Given 12/16/2017 2 mL 0.1-2 mL 09:30 CDT 0.1-2 mL, Injection, NEEDED, Starting Ella 12/16/17 at 0843, Until Ella 12/16/17 at 1211, Other..., for IV insertion, Pre-Op loratadine (CLARITIN) tablet 10 mg Given 12/17/2017 10 mg 10 mg, Oral, ONCE, 1 dose, Wed12/17/17 02:09 CDT at 0215 montelukast (SINGULAIR) tablet 10 mg Given 12/18/2017 10 mg 10 mg, Oral, DAILY, First dose on Wed 09:09 CDT 12/17/17 at 0900, Until Discontinued Given 12/19/2017 10 mg 09:40 CDT Given 12/20/2017 10 mg 09:23 CDT ondansetron (ZOFRAN) injection 4 mg Given 12/16/2017 4 mg 4 mg, Intravenous, EVERY 6 HOURS PRN, 14:30 CDT Starting Ella 12/16/17 at 1428, Until Wed12/20/17 at 1531, Nausea/Vomiting Injectable Given 12/16/2017 4 mg 16:00 CDT ondansetron (ZOFRAN) tablet 4 mg 4 mg, Oral, EVERY 6 HOURS PRN, Starting Ella 12/16/17 at 1428, Until Wed12/20/17 at 1531, Nausea/Vomiting PO, (May use for PO or NG) ONDANSETRON HCL (PF) 4 MG/2 ML IJ SOLN (Cabelinat Override) NOW, 1 dose, Wed12/16/17 at 1430, Created by ebony thurman pantoprazole DR (PROTONIX) tablet 40 mg Given 12/18/2017 40 mg 40 mg, Oral, DAILY, First dose on Sat 20:27 CDT 12/18/17 at 2100, Until Discontinued, Do not crush or chew tablet. Given 12/19/2017 40 mg 21:19 CDT polyethylene glycol 3350 (MIRALAX) packet 17 g 17 g (1 packet), Oral, TWICE DAILY, First dose on Ella 12/16/17 at 2100, Until Discontinued, 8.5 GRAMS=0.5 PACKET 17 GRAMS=1 PACKET 34 GRAMS=2 PACKETS potassium chloride in water IVPB 10 mEq 10 mEq, Intravenous, 50 mL, Administer over 60 Minutes, NEEDED, Starting Ella 12/16/17 at 1552, Until Wed12/20/17 at 1531, See admin instructions, Use tablet or suspension if patient tolerating PO; use IV if not tolerating PO. It urine output <30 mL/hr or SCr >2 mg/dL, check with physician prior to giving K+ replacement. - For K+ 4.0-4.3, give potassium chloride 10 mEq IV over 1 hour* - For K+ 3.5-3.9, give potassium chloride 20 mEq IV over 2 hours* - For K+ 3.0-3.4, give potassium chloride 30 mEq IV over 3 hours* - For K+ <3, give potassium chloride 40 mEq IV over 4 hours* - *May increase rate to 20 mEq/hr if patient has central line - Check K+ 1 hour after end of each replacement dose. Follow K+ replacement orders based on result. NOTE: This is a HIGH ALERT Medication. potassium chloride oral solution 20-40 mEq 20-40 mEq, Per NG tube, NEEDED, Starting Ella 12/16/17 at 1552, Until Wed12/20/17 at 1531, Other..., See admin instructions, If urine output <30 mL/hr or SCr >2 mg/dL, check with physician prior to giving K+ replacement. - For K+ 4.0-4.3, give potassium chloride 20 mEq PO/NG x 1 dose - For K+ 3.5-3.9, give potassium chloride 40 mEq PO/NG x 1 dose - For K+ <3.5, give potassium chloride 40 mEq PO/NG every 4 hours x 2 doses - Check K+ in the AM if potassium >=3.5 and replacement given - Check K+ 4 hours after last replacement dose given if K+ <3.5, then repeat replacement orders if needed. potassium chloride SR (K-DUR) tablet Given 12/17/2017 20 mEq 20-40 mEq 08:36 CDT 20-40 mEq, Oral, NEEDED, Starting Ella 12/16/17 at 1552, Until Wed12/20/17 at 1531, Other..., See admin instructions, If urine output <30 mL/hr or SCr >2 mg/dL, check with physician prior to giving K+ replacement. - For K+ 4.0-4.3, give potassium chloride 20 mEq PO/NG x 1 dose - For K+ 3.5-3.9, give potassium chloride 40 mEq PO/NG x 1 dose - For K+ <3.5, give potassium chloride 40 mEq PO/NG every 4 hours x 2 doses - Check K+ in the AM if potassium >=3.5 and replacement given - Check K+ 4 hours after last replacement dose given if K+ <3.5, then repeat replacement orders if needed. Given 12/18/2017 20 mEq 09:10 CDT Given 12/20/2017 40 mEq 09:23 CDT senna/docusate (SENOKOT-S) solution 20 mL 20 mL, Per NG tube, TWICE DAILY, First dose on Wed12/16/17 at 2100, Until Discontinued, Hold for loose stools. Note: 10 mL is equivalent to 1 senna/docusate tablet senna/docusate (SENOKOT-S) tablet 2 Given 12/18/2017 2 tablets tablet 20:28 CDT 2 tablet, Oral, TWICE DAILY, First dose on Wed12/16/17 at 2100, Until Discontinued, Hold for loose stools Given 12/19/2017 1 tablet 21:19 CDT Given 12/20/2017 1 tablet 09:21 CDT simethicone (MYLICON) chew tablet 80 mg Given 12/19/2017 80 mg 80 mg, Oral, FOUR TIMES DAILY, First 17:27 CDT dose on Wed12/17/17 at 0900, Until Discontinued Given 12/19/2017 80 mg 21:19 CDT Given 12/20/2017 80 mg 09:22 CDT sodium chloride 0.9 % infusion Given - New 12/16/2017 20 mL/hr 1,000 mL, Intravenous, at 20 mL/hr, Bag 09:45 CDT CONTINUOUS, Starting Ella 12/16/17 at 0845, Until 12/18/17 at 0844, Pre-Op sodium chloride 0.9 % infusion Given - New 12/16/2017 50 mL/hr 1,000 mL, Intravenous, at 50 mL/hr, Bag 13:31 CDT CONTINUOUS, Starting Ella 12/16/17 at 1330, Until Wed12/17/17 at 0129 SODIUM CHLORIDE 0.9 % IV SOLP (Cabinet Override) NOW, 1 dose, Ella 12/16/17 at 0830, Created by cabinet override traMADol (ULTRAM) tablet 50 mg Given 12/19/2017 50 mg 50 mg, Oral, EVERY 6 HOURS PRN, 04:12 CDT Starting Wed12/17/17 at 1320, Until 8/13/18 at 1531, Pain PO Given 12/19/2017 50 mg 12:36 CDT Given 12/19/2017 50 mg 21:20 CDT trimethoprim (TRIMPEX) tablet 100 mg Given 12/17/2017 100 mg 100 mg, Oral, AT BEDTIME DAILY, First 20:54 CDT dose on Ella 12/16/17 at 2100, Until Discontinued Given 12/18/2017 100 mg 20:41 CDT Given 12/19/2017 100 mg 21:19 CDT vancomycin (VANCOCIN) 1,250 mg in Given - New 12/17/2017 1,250 mg 275 mL/hr dextrose 5% (D5W) IVPB Bag 00:08 CDT 1,250 mg (rounded from 1,182 mg=15 mg/kg 78.8 kg), Intravenous, 275 mL, Administer over 60 Minutes, EVERY 12 HOURS, 1 dose, First dose on Wed12/17/17 at 0000, Give first dose 12 hours after OR dose Note Pharmacokinetic Monitoring: Please record infusion start time (Action=Given) and stop time (Action=Completed) of dose when blood levels are drawn. in this encounter
--- OUTSIDE RECORDS SUMMARY | 2018-02-27 16:10 | XMS REPORT | Encounter Summary ---
Author Author [facility] Organization [facility] Address Unknown Phone Unavailable Care Team Providers Care Design Quality Engineer Name Role Phone Martinez Soni MD PCP Lukas Bland MD Unavailable Encounter Details Date Type Department Care Team Description 12/14/2017 Prep for Case [facility] Fry APRN Atrial fibrillation, [facility] Sur[facility] [address] [facility] unspecified type (HCC) [facility] (Primary Dx) [address] [place] [address] [place] [address] [phone] Social History Tobacco Use Types Packs/Day Years Used Date Never Smoker Smokeless Tobacco: Never Used Alcohol Use Drinks/Week oz/Week Comments No Sex Assigned at Date Recorded Not on file as of this encounter Plan of Treatment Not on fileas of this encounter Visit Diagnoses Diagnosis Atrial fibrillation, unspecified type (HCC) - Primary
--- OUTSIDE RECORDS SUMMARY | 2018-02-27 16:10 | XMS REPORT | Encounter Summary ---
Author Author [facility] Organization [facility] Address Unknown Phone Unavailable Care Team Providers Care Manager Of Disaster Recovery Name Role Phone Martinez Soni MD PCP Lukas Bland MD Unavailable Encounter Details Date Type Department Care Team Description 12/15/2017 PAC Office Preoperative Assessment Vidal Longo MD Aortic valve Visit Clinic [address] [facility] 1st fl G[address] 4035 of cardiac valve disease [address] [place] [address] unspecified; [place] [address] Atrial fibrillation, unspecified type (HCC) Anesthesia Record Procedure Name Responsible Anesthesia Start Time Anesthesia Stop Time Anesthesiologist PERCUTANEOUS CLOSURE LEFT Enrike Akhtar MD 12/16/17 1010 12/16/17 1315 ATRIAL APPENDAGE WITH ENDOCARDIAL IMPLANT (AtriClip and LORENA) Left video-assisted thoracoscopic surgery (Left ) Date Time Event Comment 941 AN Equip Check 2018 1010 Anes Start 1013 Art Line 1014 An Pause 1130 An Resume 1131 Out of Pre Procedure 1132 An Start Data 1132 In Room 1139 An Induction The patient was reevaluated immediately before moderate or deep sedation use and before anesthesia induction. 1145 An Intubation 1147 Anesthesia Ready 1148 an gómez now 1150 AN LORENA 1158 Antibiotic Given 1208 FOB Patient now lateral and CMAC FOB to confirm ISIDRO placement by Dr Akhtar 1211 An one lung vent 1248 An Two-Lung Vent 1308 An Extubation 1311 Transport 1312 an stop data 1314 Handoff to RN I completed my SBAR handoff to the receiving nurse. 1315 An Stop Meds * No agents on file. * No blood administrations on file. Type Details Placement Removal Wounds 12/16/17; 1311; Chest; Surgical 12/16/17 1311 by Vivian, (NOT for Incision; x1 port site; 2 incision BIBI De La Rosa Pressure sites with dermabond Injuries) Wounds 12/16/17; 0930; Anterior; Chest; 12/16/17 0930 by Louie, 12/16/17 1600 by Taurus (NOT for Surgical Incision; Pacemaker Insertion BIBI Lee RN Pressure Site; 12/16/17; 1600 Injuries) Peripheral 12/16/17; 0945; RN; L; Forearm; 18 G; 12/16/17 0945 by Louie, 12/20/17 1130 by ANDRES Mishra No; 2; 12/20/17; 1130 BIBI Lee, BIBI Arterial 12/16/17; 1013 (created via procedure 12/16/17 1013 by Marianna, 12/16/17 1415 by Line documentation); R; Radial; 20 G; VERENICE Fermin Lisa, RN 12/16/17; 1415 Peripheral 12/16/17; 1143; Provider (Dr Akhtar); 12/16/17 1143 by Marianna, 12/20/17 1130 by ANDRES Mishra Posterior; Hand; 18 G; 1; 12/20/17; 1130 VERENICE Fermin RN ETT 12/16/17; 1145; Ventilated by mask (1); 12/16/17 1145 by Marianna, 01/25 1308 by Marianna, Direct laryngoscopy, Stylet; VERENICE Fermin CRNA Single-Lumen, Cuffed; 37 Fr; Mac; 3; Oral; 1-Full view of the glottis; 1 insertion attempt; Auscultation, ETCO2 Detector; 27 centimeters; atraumatic. dentition unchanged. ISIDRO confirmed via CMAC FOB by Dr Akhtar.; 12/16/17; 1308 Indwelling 12/16/17; 1200; Unit (Comment) (cvor); 12/16/17 1200 by Vivian , 12/16/17 1632 by Condon, Urinary 16 FR; Regular (Two-way); 12/16/17; 1632 BIBI De La Rosa RN Catheter Osmani 12/16/17; 1251; Left; Chest; 24 FR; #1; 12/16/17 1251 by Orallo, 12/19/17 0000 by Ranulfo Daniels 12/19/17 BIBI De La Rosa RN Drain in this encounter Social History Tobacco Use Types Packs/Day Years Used Date Never Smoker Smokeless Tobacco: Never Used Alcohol Use Drinks/Week oz/Week Comments No Sex Assigned at Date Recorded Not on file as of this encounter Last Filed Vital Signs Vital Sign Reading Time Taken Blood Pressure 123/74 12/15/2017 2:05 PM CDT Pulse 93 12/15/2017 2:04 PM CDT Temperature 37.2 C (99 F) 12/15/2017 2:04 PM CDT Respiratory Rate - - Oxygen Saturation 100% 12/15/2017 2:04 PM CDT Inhaled Oxygen - - Concentration Weight 79.4 kg (175 lb) 12/15/2017 2:04 PM CDT Height 167.6 cm (5' 6") 12/15/2017 2:04 PM CDT Body Mass Index 28.25 12/15/2017 2:04 PM CDT in this encounter Instructions * Pre-Anesthesia Medication Instructions - Bossman Olsen, PHARMD - 12/15/2017 2:02 PM CDT Formatting of this note may be different from the original. YOUR MEDICATIONS: acetaminophen (TYLENOL) 500 mg tablet Take 500 [...] tablet Take 5 mg by mouth daily. clindamycin(+) (CLEOCIN) 300 mg capsule Take 300 mg by mouth three times daily. Take with 8oz of water. cyanocobalamin (VITAMIN B-12, RUBRAMIN) 1,000 mcg/mL injection Inject 1,000 mcg/mL to area(s) as directed every 30 days. docusate (COLACE) 100 mg capsule Take 100 mg by mouth as Needed for Constipation. fexofenadine(+) (RENETTA) 180 mg tablet Take 180 mg by mouth daily as needed. irbesartan (AVAPRO) 300 mg tablet Take 300 mg by mouth daily. latanoprost (XALATAN) 0.005 % ophthalmic solution Apply [...] mouth at bedtime as needed for Sleep. trimethoprim (TRIMPEX) 100 mg tablet Take 100 mg by mouth at bedtime daily. YOUR MEDICATION INSTRUCTIONS FOR SURGERY: Before surgery Do not start any new vitamins, herbals, or natural supplements before surgery. Stop the following medications NOW: Anti-inflammatory medications such as ibuprofen (Advil, Motrin) and naproxen (Aleve) You may use acetaminophen (Tylenol) Morning of surgery On the morning of surgery, do NOT take these medications: Remaining vitamins/supplements (Vitamin B-12) Ointments/creams/lotions Docusate Potassium Irbesartan On the morning of surgery, take ONLY these medications with a sip (1-2 ounces) of water: Amiodarone Amlodipine Levothyroxine Montelukast If needed: Acetaminophen Alprazolam Renetta Other information Before surgery, please contact the clinic pharmacist with any medicine updates or questions. E-mail: [email or web address] Before going home from the hospital, please ask your doctor when you should re- start your medicines that were stopped before surgery. in this encounter Progress Notes * Bossman Olsen, LIVAN - 12/15/2017 1:30 PM CDT PAC Beta Nathan Instructions Note: Aga Bautista was seen in the PAC on 12/15/2017. As part of the visit, an accurate medication list was obtained and the patient was given pre-op medication instructions for upcoming surgery on 12/16/2017. Aga Bautista is not currently taking a beta nathan. Bossman Olsen PHARMD in this encounter Plan of Treatment Not on fileas of this encounter Visit Diagnoses Diagnosis Aortic valve insufficiency, etiology of cardiac valve disease unspecified Atrial fibrillation, unspecified type (HCC)
--- OUTSIDE RECORDS SUMMARY | 2018-02-27 16:10 | XMS REPORT | Encounter Summary ---
Author Author [facility] Organization [facility] Address Unknown Phone Unavailable Care Team Providers Care Projects Manager Name Role Phone Martinez Soni MD PCP Lukas Bland MD Unavailable Reason for Visit * Auth/Cert Status Reason Specialty Diagnoses / Referred By Referred To Procedures Contact Contact Diagnoses Atrial fibrillation, unspecified type (HCC) Atrial fibrillation, unspecified type (HCC) [I48.91] P rocedures [place] PERQ CLSR TCAT L ATR APNDGE W/ENDOCARDIAL IMPLNT PERCUTANEOUS CLOSURE LEFT ATRIAL APPENDAGE WITH ENDOCARDIAL IMPLANT (AtriClip and LORENA) Left video-assisted thoracoscopic surgery Encounter Details Date Type Department Care Team Description 12/16/2017 Anesthesia Cardiovascular Operating Bina Edwards MD Event Room [address] [facility] [address] [place] [address] [place] [address] [phone] Anesthesia Record Procedure Name Responsible Anesthesia Start Time Anesthesia Stop Time Anesthesiologist PERCUTANEOUS CLOSURE LEFT Enrike Castro MD 12/16/17 1010 12/16/17 1315 ATRIAL APPENDAGE [...] FOB to confirm ISIDRO placement by Dr Castro 1211 An one lung vent 1248 An Two-Lung Vent 1308 An Extubation 1311 Transport 1312 an stop data 1314 Handoff to RN I completed my SBAR handoff to the receiving nurse. 1315 An Stop Meds Name Total fentaNYL PF (SUBLIMAZE) injection 150 mcg lidocaine (2%) 200 mg/10mL Injection 100 mg syringe propofol (DIPRIVAN) 200 mg/ 20 mL 80 mg injection (VIAL) rocuronium (ZEMURON) injection 50 mg phenylephrine (GIOVANNI-SYNEPHRINE) 10 mg in 1.16 mg sodium chloride 0.9% (NS) 250 mL IV drip (std conc) dextran 70/hypromellose (GENTEAL TEARS; 2 drop BION TEARS) ophthalmic solution vancomycin (VANCOCIN) 1,250 mg in 1,250 mg dextrose 5% (D5W) IVPB ondansetron (ZOFRAN) injection 4 mg sugammadex (BRIDION) 100 mg/mL iv soln 158 mg phenylephrine (GIOVANNI-SYNEPHRINE) 0.1 mg/mL 100 mcg injection syr sodium chloride 0.9 % infusion 500 mL electrolyte-A (PLASMA-LYTE A PH 7.4) 100 mL infusion * Name O2 N2O Inspired N2O Sevoflurane Inspired Sevoflurane * No blood administrations on file. Type Details Placement Removal Wounds 12/16/17; 1311; Chest; Surgical 12/16/17 1311 by Vivian, (NOT for Incision; x1 port site; 2 incision BIBI De La Rosa Pressure sites with dermabond Injuries) Wounds 12/16/17; 0930; Anterior; Chest; 12/16/17 0930 by Louie, 12/16/17 1600 by Taurus, (NOT for Surgical Incision; Pacemaker Insertion BIBI Lee RN Pressure Site; 12/16/17; 1600 Injuries) Peripheral 12/16/17; 0945; RN; L; Forearm; 18 G; 12/16/17 0945 by Louie, 12/20/17 1130 by Tad, IV No; 2; 12/20/17; 1130 BIBI Lee RN Arterial 12/16/17; 1013 (created via procedure 12/16/17 1013 by Marianna, 12/16/17 1415 by Line documentation); R; Radial; 20 G; VERENICE Fermin Lisa, RN 12/16/17; 1415 Peripheral 12/16/17; 1143; Provider (Dr Castro); 12/16/17 1143 by Marianna, 12/20/17 1130 by Tad, IV Posterior; Hand; 18 G; 1; 12/20/17; 1130 VERENICE Fermin RN ETT 12/16/17; 1145; Ventilated by mask (1); 12/16/17 1145 by Lachky, 01/25 1308 by Marianna, Direct laryngoscopy, Stylet; VERENICE Fermin CRNA Single-Lumen, Cuffed; 37 Fr; Mac; 3; Oral; 1-Full view of the glottis; 1 insertion attempt; Auscultation, ETCO2 Detector; 27 centimeters; atraumatic. dentition unchanged. ISIDRO confirmed via CMAC FOB by Dr Castro.; 12/16/17; 1308 Indwelling 12/16/17; 1200; Unit (Comment) (cvor); 12/16/17 1200 by Orallo , 12/16/17 1632 by Anali Condon 16 FR; Regular (Two-way); 12/16/17; 1632 BIBI De La Rosa RN Catheter Osmani 12/16/17; 1251; Left; Chest; 24 FR; #1; 12/16/17 1251 by Oraljessica, 12/19/17 0000 by Ranulfo Daniels 12/19/17 BIBI De La Rosa RN Drain in this encounter Social History Tobacco Use Types Packs/Day Years Used Date Never Smoker Smokeless Tobacco: Never Used Alcohol Use Drinks/Week oz/Week Comments No Sex Assigned at Date Recorded Not on file as of this encounter OR Notes * Anesthesia Postprocedure Evaluation - Reji Anderson DO - 12/16/2017 2: 20 PM CDT Post-Anesthesia Evaluation Name: Aga Bautista : 1935 Age: 82 y.o. Sex: female Procedure Date: 12/16/2017 Procedure: Procedure(s): PERCUTANEOUS CLOSURE LEFT ATRIAL APPENDAGE WITH ENDOCARDIAL IMPLANT (AtriClip and LORENA) Left video-assisted thoracoscopic surgery Surgeon: Surgeon(s): Vidal Longo MD Zorn, Wilmar Velasco MD Post-Anesthesia Vitals BP: 102/59 (12/16 1399) Pulse: 63 (12/16 1399) Respirations: 20 PER MINUTE (12/16 1399) SpO2: 96 % (12/16 135) O2 Delivery: Nasal Cannula (12/16 1399) SpO2 Pulse: 62 (12/16 1359) Post Anesthesia Evaluation Note Evaluation location: Pre/Post Patient participation: recovered; patient participated in evaluation Level of consciousness: alert Pain score: 2 Pain management: adequate Hydration: normovolemia Temperature: 36.0C - 38.4C Airway patency: adequate Perioperative Events Perioperative events: no Post-op nausea and vomiting: no PONV Postoperative Status Cardiovascular status: hemodynamically stable Respiratory status: spontaneous ventilation and supplemental oxygen Follow-up needed: none Perioperative Events Perioperative Event: No Emergency Case Activation: No Associated attestation - Isabel Degroot MD - 12/16/2017 3:44 PM CDT Formatting of this note may be different from the original. ATTESTATION Post-Anesthesia Evaluation Attestation: I reviewed and agree the indicated post- anesthesia care was provided. Staff name: Isabel Degroot MD Date: 12/16/2017 * Anesthesia Procedure Notes - Enrike Castro MD - 12/16/2017 2:16 PM CDT Associated Order(s): ANESTHESIA TRANSEESOPHAGEAL ECHOCARDIOGRAM Anesthesia Procedure: Transesophageal Echocardiogram LORENA Date/Time: 12/16/2017 12:30 PM Preprocedure checklist performed: 2 patient identifiers, risks & benefits discussed, patient evaluated, timeout performed, consent obtained and patient being monitored Staff Anesthesiologist: ENRIKE CASTRO Surgeon: VIDAL LONGO Performed personally Indication for LORENA: assessment of surgical repair, hemodynamic monitoring and confirmation of pre-procedure diagnosis Physician requesting echo: VIDAL LONGO CPT codes: 78736 - LORENA 2D imaging (w or w/o M-mode) including probe placement, image acquisition, interpretation & report, 01398 - Color flow velocity mapping and 86287 - PWD and/or CWD f/u or limited study Patient location: OR Intubated: yes Bite block: no Heart visualized: yes Insertion: easy Probe type: multiplane Modalities: 2D, color flow mapping, 3D and pulse wave Doppler Additional notes: This is a limited echocardiographic assessment for a placement of a left atrial appendage clip. Prior to clip placement there were no signs of clot in the LING based on 2d, X-plane, and 3d visualization. The LING measured around 1.7cm at the inlet, and was about 2cm in length. After clip placement there was a small remnant of the LING measuring around 0.4cm. There did not appear to be any significant flow on CFD in the remnant. These findings were communicated with Dr. Longo and Dr. De Luna at the time of surgery. Performed by: ENRIKE CASTRO Authorized by: ENRIKE CASTRO * Anesthesia Procedure Notes - Parker Disla MD - 12/16/2017 10:16 AM CDT Associated Order(s): ANESTHESIA ARTERIAL LINE INSERTION Anesthesia Procedure: Arterial Line Placement A-LINE INSERTION [...] MAKENNA TEMPLE Authorized by: PARKER DISLA * Anesthesia Preprocedure Evaluation - Koffi Lind DO - 12/15/2017 3:06 PM CDT Formatting of this note may be different from the original. Anesthesia Pre-Procedure Evaluation Name: Aga Bautista : 1935 Age: 82 y.o. Sex: female Procedure Date: 12/16/2017 Procedure: Procedure(s): PERCUTANEOUS CLOSURE LEFT ATRIAL APPENDAGE WITH ENDOCARDIAL IMPLANT (AtriClip and LORENA) Left video-assisted thoracoscopic surgery Physical Assessment Vital Signs (last filed in past 24 hours): BP: 123/74 (12/15 1404) Temp: 37.2 C (99 F) (12/16 1403) Pulse: 93 (12/16 1403) Respirations: 15 PER MINUTE (12/16 1403) SpO2: 100 % (12/16 1403) O2 Delivery: None (Room Air) (12/16 1403) Height: 167.6 cm (66") (12/16 1403) Weight: 79.4 kg (175 lb) (12/16 1403) Dosing / Dry Weight: 79.4 kg (175 lb) (12/16 1403) Patient History Allergies Allergen Reactions Milo Inhibitors UNKNOWN Adhesive Tape (Rosins) UNKNOWN Arb-Angiotensin Receptor Antagonist UNKNOWN Beta Blockers [Beta-Blockers (Beta-Adrenergic Blocking Agts)] UNKNOWN Bumex [Bumetanide] UNKNOWN Erythromycin UNKNOWN Hydrochlorothiazide STOMACH UPSET Keflex [Cephalexin] UNKNOWN Lasix [Furosemide] UNKNOWN Nitrofurantoin Macrocrystalline ITCHING and SEE COMMENTS Thick tongue Penicillins UNKNOWN Seafood UNKNOWN Shellfish Containing Products UNKNOWN Sulfa (Sulfonamide Antibiotics) UNKNOWN Tetracycline UNKNOWN Zithromax [Azithromycin] ITCHING Current Medications Medication Directions acetaminophen (TYLENOL) 500 mg tablet Take 500 [...] 100 mg by mouth at bedtime daily. Review of Systems/Medical History Patient summary reviewed Nursing notes reviewed Pertinent labs reviewed PONV Screening: Female gender and Non-smoker No history of anesthetic complications No family history of anesthetic complications Airway - negative Pulmonary Not a current smoker (Never smoker) No indications/hx of asthma no COPD Not on home oxygen Sleep apnea Interventions: CPAP; compliant Cardiovascular Recent diagnostic studies: ECG EKG 12/15/17: atrial paced, HR 92, QTc 456 Exercise tolerance: >4 METS Beta Nathan therapy: No Beta blockers within 24 hours: n/a Hypertension, well controlled Valvular problems/murmurs: AI No past AL, Dysrhythmias; atrial fibrillation No angina CHF; NYHA Classification: II Hyperlipidemia GI/Hepatic/Renal No inflammatory bowel disease GERD, poorly controlled No hx of liver disease No renal disease (Has two kidneys bilaterally, prone to getting infections) Not transplant: pancreatitis Neuro/Psych No seizures Hx TIA (No residual deficits) No headaches No indications/hx of neuropathy Psychiatric history Anxiety Musculoskeletal Arthritis Endocrine/Other Diabetes (Diet controlled), well controlled, type 2 Hypothyroidism Anemia No autoimmune disease No malignancy Physical Exam Airway Findings Mallampati: II TM distance: >3 FB Neck ROM: full Mouth opening: good Airway patency: adequate Dental Findings: Upper dentures, lower dentures and full Cardiovascular Findings: Rhythm: irregular Rate: normal Other findings: murmur (Grade 1/6 systolic murmur) Comments: Irregularly irregular Pulmonary Findings: Negative Breath sounds clear to auscultation. No decreased breath sounds or no wheezes. Abdominal Findings: Negative Not obese Abdomen soft Neurological Findings: Negative Normal mental status Diagnostic Tests Hematology: Lab Results Component Value Date HGB 11.3 12/15/2017 HCT 35.1 12/15/2017 PLTCT 351 12/15/2017 WBC 8.3 12/15/2017 MCV 73.2 12/15/2017 MCH 23.5 12/15/2017 MCHC 32.1 12/15/2017 MPV 8.1 12/15/2017 RDW 18.5 12/15/2017 General Chemistry: No results found for: NA, K, CL, CO2, GAP, BUN, CR, GLU, CA, KETONES, ALBUMIN, LACTIC, OBSCA, MG, TOTBILI, TOTBILCB, PO4 Coagulation: No results found for: PT, PTT, INR Anesthesia Plan ASA score: 3 Plan: general and invasive monitoring Special equipment/procedures: LORENA Induction method: intravenous Comments: (Patient consented for general anesthesia, invasive monitoring, and LORENA. All questions addressed and patient/daughter in agreement with plan.) Informed Consent Anesthetic plan and risks discussed with patient. Use of blood products discussed with patient; consented to blood products. Plan discussed with: anesthesiologist and resident. in this encounter Plan of Treatment Name Priority Associated Diagnoses Date/Time ANESTHESIA TRANSEESOPHAGEAL Routine 12/16/2017 2:16 PM CDT ECHOCARDIOGRAM as of this encounter Results * ANESTHESIA ARTERIAL LINE INSERTION (12/16/2017 10:16 [...] by: MAKENNA TEMPLE Authorized by: PARKER DISLA in this encounter Visit Diagnoses Not on filein this encounter Administered Medications Medication Order MAR Action Action Date Dose Rate Site dextran 70/hypromellose (GENTEAL TEARS; Given 12/16/2017 2 drops BION TEARS) ophthalmic solution 11:46 CDT INTRA-PROCEDURE MED, Starting Ella 12/16/17 at 1146, Until Ella 12/16/17 at 1318, Dry Eyes, Anesthesia Intra-op electrolyte-A (PLASMA-LYTE A PH 7.4) Given - New 12/16/2017 injection Bag 11:50 CDT INTRA-PROCEDURE MED(CONT), Starting Ella 12/16/17 at 1150, Until Ella 12/16/17 at 1318, Anesthesia Intra-op fentaNYL citrate PF (SUBLIMAZE) Given 12/16/2017 100 mcg injection 11:39 CDT INTRA-PROCEDURE MED, Starting Ella 12/16/17 at 1139, Until Ella 12/16/17 at 1318, Pain Injectable, Anesthesia Intra-op Given 12/16/2017 50 mcg 12:19 CDT lidocaine (PF) injection Given 12/16/2017 100 mg INTRA-PROCEDURE MED, Starting Ella 12/16/17 11:39 CDT at 1139, Until Ella 12/16/17 at 1318, Anesthesia Intra-op ondansetron (ZOFRAN) injection Given 12/16/2017 4 mg INTRA-PROCEDURE MED, Starting Ella 12/16/17 12:44 CDT at 1244, Until Ella 12/16/17 at 1318, Nausea/Vomiting Injectable, Anesthesia Intra-op phenylephrine (GIOVANNI-SYNEPHRINE) 10 mg in Given - New 12/16/2017 0.3 35.5 mL/hr sodium chloride 0.9% (NS) 250 mL IV drip Bag 11:52 CDT mcg/kg/min (std conc) 250 mL, Intravenous, INTRA-PROCEDURE MED(CONT), Starting Ella 12/16/17 at 1152, Until Ella 12/16/17 at 1318, Anesthesia Intra-op Infusion Restarted 12/16/2017 0.3 35.5 mL/hr 12:33 CDT mcg/kg/min Infusion Restarted 12/16/2017 0.3 35.5 mL/hr 12:50 CDT mcg/kg/min phenylephrine in NS injection syringe Given 12/16/2017 100 mcg INTRA-PROCEDURE MED, Starting Ella 12/16/17 12:54 CDT at 1254, Until Ella 12/16/17 at 1318, Symptomatic Hypotension, Anesthesia Intra-op propofol (DIPRIVAN) injection Given 12/16/2017 80 mg INTRA-PROCEDURE MED, Starting Ella 12/16/17 11:39 CDT at 1139, Until Ella 12/16/17 at 1318, Anesthesia Intra-op rocuronium (ZEMURON) injection Given 12/16/2017 50 mg Intravenous, INTRA-PROCEDURE MED, 11:41 CDT Starting Ella 12/16/17 at 1141, Until Ella 12/16/17 at 1318, Anesthesia Intra-op sugammadex (BRIDION) injection Given 12/16/2017 158 mg INTRA-PROCEDURE MED, Starting Ella 12/16/17 13:02 CDT at 1302, Until Ella 12/16/17 at 1318, Anesthesia Intra-op vancomycin (VANCOCIN) 1,250 mg in Given - New 12/16/2017 1,250 mg dextrose 5% (D5W) IVPB Bag 11:58 CDT 1,250 mg (rounded from 1,182 mg=15 mg/kg 78.8 kg), Intravenous, 275 mL, Administer over 60 Minutes, ONCE IN HEART OR, 1 dose, Ella 12/16/17 at 1030, Note Pharmacokinetic Monitoring: Please record infusion start time (Action=Given) and stop time (Action=Completed) of dose when blood levels are drawn. in this encounter
--- OUTSIDE RECORDS SUMMARY | 2018-02-27 16:10 | XMS REPORT | Encounter Summary ---
Author Author [facility] Organization [facility] Address Unknown Phone Unavailable Care Team Providers Care Junior [employer] Name Role Phone Martinez Soni MD PCP Lukas Bland MD Unavailable Encounter Details Date Type Department Care Team Description 12/15/2017 Hospital [facility] Vidal Longo MD Encounter Hospital Radiology [address] [facility] 2nd fl [place] [address] [place] [address] [place] [address] [phone] Social History Tobacco Use Types Packs/Day Years [...] 3 12/20/2017 12/20/2017 daily. Take with food. clindamycin(+) (CLEOCIN) Take 300 mg by mouth 12/16/2017 300 mg capsule three times daily. Take with 8oz of water. fexofenadine(+) (VIRY) Take 180 mg by mouth 01/31/2018 180 mg tablet daily as needed. irbesartan (AVAPRO) 300 Take 300 mg by mouth 12/20/2017 mg tablet daily. as of this encounter Plan of Treatment Not on fileas of this encounter Procedures Procedure Name Priority Date/Time Associated Diagnosis Comments CHEST 2 VIEWS STAT 12/15/2017 Atrial fibrillation, Results for this 3:21 PM CDT unspecified type (HCC) procedure are in the results section. in this encounter Visit Diagnoses Not on filein this encounter
--- OUTSIDE RECORDS SUMMARY | 2018-02-27 16:10 | XMS REPORT | Encounter Summary ---
Author Author [facility] Organization [facility] Address Unknown Phone Unavailable Care Team Providers Care Shop Blacksmith Name Role Phone Esther Danielle MD PCP Lukas Bland MD Unavailable Reason for Visit * Auth/Cert Status Reason Specialty Diagnoses / Referred By Referred To Procedures Contact Contact Diagnoses Atrial fibrillation, unspecified type (HCC) Atrial fibrillation, unspecified type (HCC) [I48.91] P rocedures SD PERQ CLSR TCAT L ATR APNDGE W/ENDOCARDIAL IMPLNT PERCUTANEOUS CLOSURE LEFT ATRIAL APPENDAGE WITH ENDOCARDIAL IMPLANT (AtriClip and LORENA) Left video-assisted thoracoscopic surgery Encounter Details Date Type Department Care Team Description 12/16/2017 Surgery Cardiovascular Operating Vidal Longo MD PERCUTANEOUS CLOSURE LEFT Room [address] ATRIAL APPENDAGE WITH [address] [place] [address] [place] [address] (AtriClip and LORENA) Left [phone] video-assisted thoracoscopic surgery Social History Tobacco Use Types Packs/Day Years [...] Chronic sinus complaints Congestive heart failure (CHF) ([facility]) Diabetes mellitus ([facility]) diet controlled Double kidney 4 kidneys total GERD (gastroesophageal reflux disease) H/O hemorrhoids HLD (hyperlipidemia) 10/22/2017 HTN (hypertension) 10/22/2017 Hypothyroidism IBS (irritable bowel syndrome) DAMASO on CPAP Osteoarthritis PAF (paroxysmal atrial fibrillation) ([facility]) 10/22/2017 Psychiatric illness anxiety Rectal bleeding 10/29/2017 S/P laparoscopic fundoplication 2005 2/2 GERD SSS (sick sinus syndrome) ([facility]) 10/22/2017 TIA (transient ischemic attack) 10/22/2017 Allergies: Milo inhibitors; Adhesive tape (rosins); Arb-angiotensin receptor antagonist; Beta blockers [beta-blockers (beta-adrenergic blocking agts)]; Bumex [bumetanide]; Erythromycin; Hydrochlorothiazide; Keflex [cephalexin]; Lasix [furosemide]; Nitrofurantoin macrocrystalline; Penicillins; Seafood; Shellfish containing products; Sulfa (sulfonamide antibiotics); Tetracycline; and Zithromax [azithromycin] Brief Hospital Course: Mrs. Bautista was admitted to the [facility] and underwent elective left VATS with AtriClip [...] instructed to follow up with her home cleaner housekeeping in 3-4 weeks for continued management. Condition [...] education. The class is held in the [facility] on the 5th floor of the Medical Office Building, every Wednesday from 10:00-12:00 noon and every Wednesday 3:00 pm - 5:00 pm. The class is not held on actual or observed holidays. You do not need an appointment for this and we will not bill your insurance. More diabetes education and individual nutrition appointments are offered at the [facility]. Most insurance plans cover these services if you have a referral from your doctor. Call [phone], option 3 or go to [email or web address]/ [place] for details. Report These Signs and Symptoms temperature higher than 100 degrees F, uncontrolled pain, persistent nausea and/ or vomiting, difficulty breathing, chest pain or drainage with a foul odor Questions About Your Stay For questions or concerns regarding your hospital stay. Call [phone] Discharging attending physician: VIDAL LONGO [[id number]] Cardiac Diet Limiting unhealthy fats and cholesterol [...] home, you can call a dietitian at [phone]. Return Appointment Chest xray at 12:30pm, appointment to follow at 1:30pm. [facility] Provider VIDAL LONGO [[id number]] [facility] [place]ointment date: 01/31/2018 Appointment time: 12:30 PM Return Appointment You will need to make an appointment to see your primary care provider for 1-2 weeks. Provider ESTHER DANIELLE III [[id number]] Return Appointment You will need to schedule an appointment with your Client Experience Manager for 4-[address] [place] [address] Lukas Bland Opioid (Narcotic) [...] Post - Op with Vidal Longo MD [facility] [facility] [address] Pending items needing follow up: None Signed: [...] Mishra RN - 12/20/2017 11:59 AM CDT 9210 - Reviewed discharge instructions, prescriptions/medications, follow-up appt with pt. Pt states verbal understanding - no questions. IV's and Tele dc' d. Medication delivered to bedside by pharmacy corporate legal secretary team. Per Pharmacy team - pt is not to take aspirin at this time. Waiting for time confirmation of medicare ride. Pt's home medication - eyedrops, returned to pt. Pt's RNToni, updated. * Rich Limad - 12/20/2017 11:32 AM CDT Reason for Visit: Routine Brandi/Hinduism: Baptist Source of Purpose/Meaning: Worries/Concerns/Struggles: Method(s) of Coping: Support System: Interventions/Plan: Pt. Is discharging today, she talked about her family and asked prayer for her who has Alzheimer and lives in a long-term and can not talk to her. Her daughter comes to see them both once a month. She has a home care assistance helps her in shopping and driving. Prayed for her. The spiritual care team is available as needed, 30/11, through the campus switchboard ([phone]). For immediate response, please page [phone]. For a response within 24 hours, please submit an order in O2 for a embedded software design engineer consult or call the administrative voicemail at [phone]. * Gabriela Zuñiga PA-C - 12/20/2017 7:18 [...] pulm toilet. 3. Renal - UOP 1.2L/24hrs. Lead Cargo Mover 1.04. Net -0.4kg/admission. 4. GI - + [...] GLUPOC 118 (H) 12/16/2017 Gabriela Zuñiga PA-C 7720 Associated attestation - Vidal Longo MD - [...] ambulated 175 feet so far. * Caitlin Arce RN - 12/19/2017 7:45 AM CDT No acute [...] removing her chest tube tomorrow. * Vidhi Estrella RN - 12/18/2017 6:21 AM CDT Assumed care [...] ASSESSMENT NOTE Patient Name: Aga Bautista Room/Bed: [place] [address] Admitting Diagnosis: Atrial fibrillation, unspecified type ([facility]) [I48.91] Atrial fibrillation ([facility]) Past Medical History: Diagnosis Date Aortic regurgitation Arthritis osteoarthritis Cardiac device in situ 10/22/2017 Cardiac pacemaker 11/25/2017 Chronic sinus complaints Congestive heart failure (CHF) ([facility]) Diabetes mellitus ([facility]) diet controlled Double kidney 4 kidneys total GERD (gastroesophageal reflux disease) H/O hemorrhoids HLD (hyperlipidemia) 10/22/2017 HTN (hypertension) 10/22/2017 Hypothyroidism IBS (irritable bowel syndrome) DAMASO on CPAP Osteoarthritis PAF (paroxysmal atrial fibrillation) ([facility]) 10/22/2017 Psychiatric illness anxiety Rectal bleeding 10/29/2017 S/P laparoscopic fundoplication 2006 2/2 GERD SSS (sick sinus syndrome) ([facility]) 10/22/2017 TIA (transient ischemic attack) 10/22/2017 Mobility [...] falls at home. Prior Function Level Of [place]: Independent with ADLs and functional transfers Lives [...] Patient Will Perform All ADL's: w/ Modified [place];w/ Good Judgment/ Safety (w/ precautions maintained 100% [...] Safety concerns, Bathing, Dressing, Toileting (IADLs) Therapist: CHRISTIAN Pryor/Kostas [id number] Date: 12/17/2017 * Neal Luevano, PT - [...] Score: 43.99 Basic Mobility CMS 0-100%: 33.32 [facility] G Code Modifier for Basic Mobility: CJ [...] Date: 12/16/2017 Koo AC=Airway clearance AM=Aerosolized medication BA=Morton aerosol DB&C=Deep breathe & cough FEV1=Forced expiratory volume in first second) IC=Inspiratory capacity LE=Lung expansion MDI=Metered dose inhaler Neb=Nebulizer O2=Oxygen Oxim=Oximetry PEFR=Peak expiratory flow rate FLOUR MIXER=Rapid Response Team * Rut Condon RN - 12/16/2017 4:12 PM CDT Patient continues to c/o nausea. 4mg IV zofran given. Patient states she is unable to vomit because of a previous gastric "procedure". Chest tube to bulb, ss output. Moran too dd, will d/c at this time. Denies pain. 95% on room air. Besides nausea, resting comfortably at this time. * Stephany Adrina PA-C - 12/16/2017 9:10 AM CDT Formatting [...] Tetracycline; and Zithromax [azithromycin] Primary Care Physician: Estehr Danielle III Verified Lab/Radiology/Other Diagnostic Tests: Hematology: [...] urine culture final. Stephany Adrian PA-C Pager [phone] * Elsie Sapp RN - 12/15/2017 3:18 [...] permanent pacemaker placement dual-chamber on 11/25/2017 at [facility]. She was seen by our cleaner housekeeping here, Dr. Webb, to discuss options for [...] Cardiac pacemaker 11/25/2017 Congestive heart failure (CHF) ([facility]) Diabetes mellitus ([facility]) GERD (gastroesophageal reflux disease) H/O hemorrhoids HLD (hyperlipidemia) 10/22/2017 HTN (hypertension) 10/22/2017 Hypothyroidism IBS (irritable bowel syndrome) PAF (paroxysmal atrial fibrillation) ([facility]) 10/22/2017 Rectal bleeding 10/29/2017 S/P laparoscopic fundoplication 2005 2/2 GERD SSS (sick sinus syndrome) ([facility]) 10/22/2017 TIA (transient ischemic attack) 10/22/2017 Past [...] normal. Assessment: 1. PAF (paroxysmal atrial fibrillation) ([facility]) 2. Transient cerebral ischemia, unspecified type 3. Rectal bleeding 4. H/O hemorrhoids 5. SSS (sick sinus syndrome) ([facility]) 6. Cardiac pacemaker 7. Preop cardiovascular exam 8. S/P laparoscopic fundoplication 9. Aortic valve insufficiency, etiology of cardiac valve disease unspecified 10. Type 2 diabetes mellitus with complication, without long-term current use of insulin ([facility]) 11. Gastroesophageal reflux disease, esophagitis presence not [...] resolved prior to surgery. Lisy Fry APRN [facility] 12/06/2017 1:43 PM [...] it and to touch base with her cleaner housekeeping should this fail to improve in the [...] Eileen Mathews - 12/20/2017 11:30 AM CDT RN PRIOR AUTHORIZATION Note: Transportation [facility] from [facility]) . Vp Account Director will call 10 minutes prior to arrival to the unit [phone]. Patient will be picked up between 2-3 hours. If local delivery truck driver doesn't show up you may call Where is my Ride at [phone]. Per the request of BRITTNY Malone. Trip# [id number] Updated SW. Eileen Mathews Tie Sawyer For additional assistance, please contact BRITTNY Malone *[phone]. * Case Mgmt DC Plan - Jeny [...] following to set up Medicaid ride at [place]. ? Medication Needs ? Financial ? Legal ? Other Disposition ? Expected Discharge Date Expected Discharge Date: 12/19/17 ? Transportation Does the patient need discharge transport arranged?: Yes Does the patient use Medicaid Transportation?: Yes ? Discharge Disposition Anticipated DC home with HH. Jeny Villalobos RN, BSN Integrated Nurse Promotions Assistant Pager [phone] * Care Plan - Brenda Daniels RN [...] LOS: 1 day Todays Date: 12/17/2017 Nurse Promotions Assistant Weekend Needs Instructions for CM W/E Staff: Please notify Oracio'joycelyn ([phone], [phone]) that pt is DC and fax AVS [...] pt on service. Referral/ Orders sent via [employer]. CM team continue to follow for DC planning and case progression Patient Address/Phone [address] [place] [facility] [address] (home) Emergency Contact Extended Emergency Contact Information Primary Emergency Contact: [facility] Relation: Daughter Secondary Emergency Contact: [facility] Relation: Son Healthcare Directive Healthcare Directive: No, [...] (Part A and B) Secondary Insurance: Medicaid ([facility] Medicaid [place] community plan) Additional Coverage: RX (Medicaid- Co Pays are affordable) ? Source of Income Source Of Income: Other assisted income ? Financial Assistance Needed? N/A Psychosocial Needs ? Mental Health Mental Health History: No ? Substance Use History Substance Use History Screen: No ? Other N/A Current/Previous Services ? PCP Esther Danielle III, , [facility]- ? Pharmacy [facility][id number] - [place], [place] - [address] [facility] [address] [facility] ([facility]) [address] [facility] [address] ? Durable Medical Equipment Durable Medical Equipment at home: CPAP/BiPAP, Walker, Single Point Cane (Pt also has BP cuff, and O2 sat. ) ? Home Health Receiving home health: In the past Agency name: [facility] Would patient use this agency again?: Yes [...] ? Outpatient Therapy PT: No OT: No RN PARALEGAL: No ? Longterm Facility/Group Home SNF: In the past When did patient receive care?: Pt has used [facility] in [place], [place]. Would patient return for future services?: Yes ? Inpatient Rehab IPR: No ? Long-Term Acute Care Hospital LTACH: No ? Acute Hospital Stay Acute Hospital Stay: In the past Was patient's stay within the last 30 days?: No Jeny Villalobos RN, BSN Integrated Nurse Promotions Assistant Pager [phone] * Operative Report (Direct Entry) - Vidal Longo MD - 12/16/2017 2:21 PM CDT OPERATIVE REPORT Name: Aga Bautista is a 82 y.o. female : 1935 DATE OF OPERATION: 12/16/2017 Surgeon(s) and Role: * Vidal Longo MD - Primary * Wilmar De Luna MD - Assisting Gabriela Zuñiga, [facility] Preoperative Diagnosis: Atrial fibrillation, unspecified type (HCC) [...] The delivery mechanism removed and a 19 German Wagner drain was inserted and connected to [...] PACU - stable Gabriela Zuñiga PA-C Pager [phone] in this encounter Plan of Treatment Not [...] City/State/Zipcode Phone Number [facility] RAD RESULTS * ECG-SCAN (12/21/2017 1:13 PM) [...] for questions. Specimen Blood Performing Organization Address City/[facility]/Zipcode Phone Number [facility]3] LAB [address] [phone] * CBC (12/20/2017 4:28 AM) White Blood Cells 7.3 4.5 - 11.0 K/UL MAIN LAB RBC 4.46 4.0 - 5.0 M/UL MAIN LAB Hemoglobin 10.5 (L) 12.0 - 15.0 GM/DL MAIN LAB Hematocrit 32.5 (L) 36 - 45 % MAIN LAB MCV 73.0 (L) 80 - 100 FL MAIN LAB MCH 23.5 (L) 26 - 34 PG MAIN LAB MCHC 32.2 32.0 - 36.0 G/DL [facility]3] LAB RDW 18.6 (H) 11 - 15 % [facility] MAIN LAB Platelet Count 258 150 - 400 K/UL MAIN LAB MPV 7.9 7 - 11 FL MAIN LAB Specimen Blood Performing Organization Address City/[facility]/Zipcode Phone Number [facility]3] LAB [address] [phone] * CHEST SINGLE VIEW (12/19/2017 12:17 PM) [...] for questions. Specimen Blood Performing Organization Address City/[facility]/Zipcode Phone Number MAIN LAB [address] [place] [address] * CBC (12/19/2017 4:18 AM) White Blood [...] MAIN LAB Specimen Blood Performing Organization Address City/[facility]/Zipcode Phone Number [facility] MAIN LAB [address] [phone] * CHEST SINGLE VIEW (12/18/2017 8:42 AM) [...] AM. Performing Organization Address City/State/Zipcode Phone Number [facility] RESULTS * BASIC METABOLIC PANEL (12/17/2017 4:24 [...] Organization Address City/State/Zipcode Phone Number MAIN LAB [address] [place] [address] * CBC (12/17/2017 4:24 AM) White Blood [...] Organization Address City/State/Zipcode Phone Number MAIN LAB [address] [place] [address] * CHEST SINGLE VIEW (12/16/2017 2:25 PM) [...] on 12/16/2017 2:03 PM. Performing Organization Address City/[facility]/Zipcori Phone Number RAD RESULTS * POC GLUCOSE (12/16/2017 1:29 PM) Glucose, POC 128 (H) 70 - 100 MG/DL MAIN LAB Performing Organization Address City/[facility]/Zipcode Phone Number [facility]3] LAB [address] [place] [address] * DEVICE EVALUATION - PPM (12/16/2017 9:45 AM) Generator Environmental Monitoring Specialist unrival OTHER OUTSIDE LAB Generator Model # Teresa S DR RAMOS [id number] OTHER OUTSIDE LAB Generator Serial # [id number] OTHER OUTSIDE LAB Generator Implnat Date 25-Nov-2017 OTHER OUTSIDE LAB Device Implanted By Dr. Bland [phone] OTHER OUTSIDE LAB ILR Symptom Duration 4 [...] LAB EP Device Followed by DR. HOLLINGSWORTH [phone] OTHER OUTSIDE LAB Name Device [employer] OTHER OUTSIDE LAB Transmitter Compatible Known Diagnosed AFib Yes OTHER OUTSIDE LAB On Anticoagulation No OTHER OUTSIDE LAB On AntiCoag Date high risk (watchman work-up) OTHER OUTSIDE LAB Device Mode AAIR<=>DDDR OTHER OUTSIDE LAB Mode Switch Status On OTHER OUTSIDE LAB Lower Rate Limit 60 OTHER OUTSIDE LAB Mode Switch (bpm) >171 OTHER OUTSIDE LAB Atrial Lead Environmental Monitoring Specialist Medtronic OTHER OUTSIDE LAB Atrial Lead Model # 4076 CapSureFix Novus 45cm OTHER OUTSIDE LAB Atrial Lead Serial # [id number] OTHER OUTSIDE LAB Atrial Lead Implant Date 25-Nov-2017 OTHER OUTSIDE LAB RV Lead Environmental Monitoring Specialist Medtronic OTHER OUTSIDE LAB RV Lead Model # 5076 CapSureFix Novus 52cm OTHER OUTSIDE LAB RV Lead Serial # [id number] OTHER OUTSIDE LAB RV Lead Implant Date 25-Nov-2017 OTHER OUTSIDE LAB Underlying Rhythm SR 65bpm OTHER OUTSIDE LAB Upper Rate Limit 130 OTHER OUTSIDE LAB Sensor Rate Limit 130 OTHER OUTSIDE LAB Pace AV Delay 180 OTHER OUTSIDE LAB Sense AV Delay 150 OTHER OUTSIDE LAB -VS% 2.6 OTHER OUTSIDE LAB -SUPERVISOR COMPONENT ASSEMBLER% 0.3 OTHER OUTSIDE LAB -VS% 84.2 OTHER OUTSIDE LAB AP-SUPERVISOR COMPONENT ASSEMBLER% 12.8 OTHER OUTSIDE LAB # Mode S. [...] OTHER OUTSIDE LAB Pre-op device evaluation in [facility] full check (please see attached PDF for [...] review/co-sign (report left at bedside w/RN in CV). Performing Organization Address City/State/Zipcode Phone Number OTHER OUTSIDE LAB * BLOOD TYPE CONFIRMATION - ORDER ONLY IF REQUESTED BY LAB (12/16/2017 9:09 AM) ABO/RH(D) O POS MAIN LAB Specimen Blood Performing Organization Address City/[facility]/Zipcode Phone Number MAIN LAB [address] [place] [address] * POC GLUCOSE (12/16/2017 9:08 AM) Glucose, POC 118 (H) 70 - 100 MG/DL [facility] MAIN LAB Performing Organization Address City/[facility]/Zipcode Phone Number MAIN LAB [address] [place] [address] * CULTURE-URINE W/SENSITIVITY (12/16/2017 8:48 AM) Battery Name URINE CULTURE [facility] MAIN LAB Specimen Description URINE [facility] Special Requests NONE [facility] MA[facility] Culture >100,000 organisms/ml [facility] MAIN LAB LACTOBACILLUS SPECIES <10,000 organisms/ml MIXED CONTAMINANTS Report Status FINAL [facility] MAIN LAB 12/17/2017 Specimen Urine Performing Organization Address [facility] Phone Number [facility] [address] [place] [address] * UA REFLEX CULTURE LABEL (12/16/2017 8:48 AM) UA Reflex Culture LAB LABEL [facility] MAIN LAB Specimen Urine Performing Organization Address City/[facility] Phone Number [facility] MAIN LAB [address] [place] [address] * URINALYSIS MICROSCOPIC REFLEX TO CULTURE (12/16/2017 [...] MAIN LAB Specimen Urine Performing Organization Address City/[facility] Phone Number [facility] MAIN LAB [address] [place] [address] * URINALYSIS DIPSTICK REFLEX TO CULTURE (12/16/2017 8:48 AM) Color,UA BRADY [facility] MAIN LAB Turbidity,UA 2+ (A) CLEAR-CLEAR [facility] MAIN LAB Specific [place]-Urine 1.021 1.003 - 1.035 [facility] MAIN LAB pH,UA 5.0 5.0 - 8.0 [facility] MAIN LAB Protein,UA 1+ (A) NEG-NEG [facility] MAIN LAB Glucose,UA NEG NEG-NEG [facility] MAIN LAB Ketones,UA NEG NEG-NEG [facility] MAIN LAB Bilirubin,UA NEG NEG-NEG [facility] MAIN LAB Blood,UA NEG NEG-NEG [facility] MAIN LAB Urobilinogen,UA INCREASED (A) NORM-NORMAL [facility] MAIN LAB Nitrite,UA NEG NEG-NEG [facility] MAIN LAB Leukocytes,UA 3+ (A) NEG-NEG MAIN LAB Urine Ascorbic Acid, UA NEG NEG-NEG MAIN LAB Specimen Urine Performing Organization Address City/State/Zipcode Phone Number MAIN LAB [address] [place] [address] in this encounter Visit Diagnoses Diagnosis Atrial fibrillation, unspecified type (HCC) Admitting Diagnoses Diagnosis Atrial fibrillation, unspecified type [...] tube. Given 12/17/2017 325 mg 08:33 CDT heparin (porcine) PF syringe 5,000 Units Given 12/19/2017 5,000 Units Arm, Left 5,000 Units, Subcutaneous, THREE TIMES 09:41 CDT DAILY, First dose on Wed12/17/17 at 0900, Until Discontinued, First dose given post-op at 2100. NOTE: This is a HIGH ALERT Medication. Given 12/19/2017 5,000 Units Arm, Right 17:26 CDT Given 12/19/2017 5,000 Units Abdomen:LLQ 21:20 CDT latanoprost (XALATAN) 0.005 % ophthalmic Given 12/17/2017 [...] CDT Given 12/19/2017 1 drop 21:23 CDT levothyroxine (SYNTHROID) tablet 50 mcg Given 12/18/2017 50 mcg 50 mcg, Oral, DAILY 30MIN BEFORE 06:05 CDT BREAKFAST, First dose on Wed12/17/17 at 0630, Until Discontinued, Give 1 hour before a meal. If patient is receiving tube feedings, hold tube feed 1hr before and 1hr after dose. Given 12/19/2017 50 mcg 06:58 CDT Given 12/20/2017 50 mcg 07:03 CDT montelukast (SINGULAIR) tablet 10 mg Given 12/18/2017 10 mg 10 mg, Oral, DAILY, First dose on Wed 09:09 CDT 12/17/17 at 0900, Until Discontinued Given 12/19/2017 10 mg 09:40 CDT Given 12/20/2017 10 mg 09:23 CDT ondansetron (ZOFRAN) injection 4 mg Given 12/16/2017 4 mg 4 mg, Intravenous, EVERY 6 HOURS PRN, 14:30 CDT Starting Ella 12/16/17 at 1428, Until 12/20/17 at 1531, Nausea/Vomiting Injectable Given 12/16/2017 4 mg 16:00 CDT ondansetron (ZOFRAN) tablet 4 mg 4 mg, Oral, EVERY 6 HOURS PRN, Starting Ella 12/16/17 at 1428, Until Wed12/20/17 at 1531, Nausea/Vomiting PO, (May use for PO or NG) pantoprazole DR (PROTONIX) tablet 40 mg Given [...] NEEDED, Starting Ella 12/16/17 at 1552, Until 12/20/17 at 1531, See admin instructions, Use tablet [...] 08:36 CDT 20-40 mEq, Oral, NEEDED, Starting [facility] 12/16/17 at 1552, Until Wed12/20/17 at 1531, [...] NG tube, TWICE DAILY, First dose on Ella 12/16/17 at 2100, Until Discontinued, Hold for loose stools. Note: 10 mL is equivalent to 1 senna/docusate tablet senna/docusate (SENOKOT-S) tablet 2 Given 12/18/2017 2 tablets tablet 20:28 CDT 2 tablet, Oral, TWICE DAILY, First dose on Ella 12/16/17 at 2100, Until Discontinued, Hold for loose [...] 0.9 % infusion Given - New 12/16/2017 1,000 mL INTRA-PROCEDURE MED(CONT), Starting Ella Bag 12:33 CDT 12/16/17 at 1233, Until Ella 12/16/17 at 1551, Intra-op traMADol (ULTRAM) tablet 50 mg Given 12/19/2017 50 mg 50 mg, Oral, EVERY 6 HOURS PRN, 04:12 CDT Starting Wed12/17/17 at 1320, Until Wed12/20/17 at 1531, Pain PO Given 12/19/2017 50 mg 12:36 CDT Given 12/19/2017 50 mg 21:20 CDT trimethoprim (TRIMPEX) tablet 100 mg Given 12/17/2017 100 mg 100 mg, Oral, AT BEDTIME DAILY, First 20:54 CDT dose on Ella 12/16/17 at 2100, Until Discontinued Given 12/18/2017 100 mg 20:41 CDT Given 12/19/2017 100 mg 21:19 CDT in this encounter
--- OUTSIDE RECORDS SUMMARY | 2018-02-27 16:11 | XMS REPORT | Encounter Summary ---
Author Author [facility] Organization [facility] Address Unknown Phone Unavailable Care Team Providers Care Block Layer Name Role Phone Martinez Soni MD PCP Lukas Bland MD Unavailable Encounter Details Date Type Department Care Team Description 12/14/2017 Pre-Admit Preoperative Assessment Vidal Longo MD Atrial fibrillation, Orders Only Clinic [address] [facility] unspecified type (HCC) [facility] 1st fl G[address] (Primary Dx) [address] [place] [address] [place] [address] [phone] Social History Tobacco Use Types Packs/Day Years Used Date Never Smoker Smokeless Tobacco: Never Used Alcohol Use Drinks/Week oz/Week Comments No Sex Assigned at Date Recorded Not on file as of this encounter Plan of Treatment Not on fileas of this encounter Results * CHEST 2 VIEWS (12/15/2017 3:21 PM) Impressions Performed At 1. Mild elevation of the left hemidiaphragm with dilated loops of bowel noted [facility] RES[facility] within the left upper quadrant abdomen. Supine and upright imaging of the abdomen is recommended for further evaluation. 2. Prominence of the right hilum, likely secondary to old granulomatous disease. Attention on follow-up radiographs is recommended. 3. Mild cardiomegaly without CHF. 4. Mild areas of bibasilar atelectasis and/or scarring. Approved by Rigo Mcleod M.D. on 12/15/2017 4:02 PM By my electronic signature, I attest that I have personally reviewed the images for this examination and formulated the interpretations and opinions expressed in this report Finalized by Jess Holly M.D. on 12/15/2017 4:12 PM. Dictated by Rigo Mcleod M.D. on 12/15/2017 3:25 PM. Narrative Performed At CHEST 2 VIEWS [facility] RES[facility] Clinical Indication: Female, 82 years old. Preoperative for left atrial appendage ligation. Comparison: No prior exam is available for comparison. Findings: The heart size is mildly enlarged without pulmonary venous congestion. A left-sided dual-lead cardiac conduction device is in place. There is prominence of the right hilum. There is no pleural effusion, consolidating pneumonia, or pneumothorax. There are mild areas of bibasilar atelectasis and/or scarring. There is tortuosity of the thoracic aorta. There is mild elevation of the left hemidiaphragm with dilated loops of bowel noted in the left upper quadrant abdomen. Procedure Note Interface, Radiant Results - 12/15/2017 4:15 PM CDT CHEST 2 VIEWS Clinical Indication: Female, 82 years old. Preoperative for left atrial appendage ligation. Comparison: No prior exam is available for comparison. Findings: The heart size is mildly enlarged without pulmonary venous congestion. A left- sided dual-lead cardiac conduction device is in place. There is prominence of the right hilum. There is no pleural effusion, consolidating pneumonia, or pneumothorax. There are mild areas of bibasilar atelectasis and/or scarring. There is tortuosity of the thoracic aorta. There is mild elevation of the left hemidiaphragm with dilated loops of bowel noted in the left upper quadrant abdomen. IMPRESSION 1. Mild elevation of the left hemidiaphragm with dilated loops of bowel noted within the left upper quadrant abdomen. Supine and upright imaging of the abdomen is recommended for further evaluation. 2. Prominence of the right hilum, likely secondary to old granulomatous disease. Attention on follow-up radiographs is recommended. 3. Mild cardiomegaly without CHF. 4. Mild areas of bibasilar atelectasis and/or scarring. Approved by Rigo Mcleod M.D. on 12/15/2017 4:02 PM By my electronic signature, I attest that I have personally reviewed the images for this examination and formulated the interpretations and opinions expressed in this report Finalized by Jess Holly M.D. on 12/15/2017 4:12 PM. Dictated by Rigo Mcleod M.D. on 12/15/2017 3:25 PM. Performing Organization Address [facility] Phone Number RAD RESULTS * TYPE & CROSSMATCH (12/15/2017 1:50 PM) Units Ordered 0 MAIN LAB Crossmatch Expires 12/18/2017 MAIN LAB Record Check 2ND TYPE REQUIRED MAIN LAB ABO/RH(D) O POS MAIN LAB Antibody Screen NEG MAIN LAB Electronic Crossmatch YES MAIN LAB Specimen Blood Performing Organization Address [facility] Phone Number MAIN LAB [address] [place] [address] * PTT (APTT) (12/15/2017 1:50 PM) APTT 29.2 21.0 - 39.0 SEC MAIN LAB Specimen Blood Performing Organization Address [facility] Phone Number MAIN LAB [address] [place] [address] * PROTIME INR (PT) (12/15/2017 1:50 PM) INR 1.1 0.8 - 1.2 MAIN LAB Specimen Blood Performing Organization Address [facility] Phone Number MAIN LAB [address] [place] [address] * COMPREHENSIVE METABOLIC PANEL (12/15/2017 1:50 PM) Sodium 139 137 - 147 MMOL/L MAIN LAB Potassium 3.9 3.5 - 5.1 MMOL/L MAIN LAB Chloride 108 98 - 110 MMOL/L MAIN LAB Glucose 145 (H) 70 - 100 MG/DL MAIN LAB Blood Urea Nitrogen 17 7 - 25 MG/DL MAIN LAB Creatinine 1.15 (H) 0.4 - 1.00 MG/DL MAIN LAB Calcium 9.9 8.5 - 10.6 MG/DL MAIN LAB Total Protein 7.6 6.0 - 8.0 G/DL MAIN LAB Total Bilirubin 0.7 0.3 - 1.2 MG/DL MAIN LAB Albumin 4.2 3.5 - 5.0 G/DL MAIN LAB Alk Phosphatase 106 25 - 110 U/L MAIN LAB AST (SGOT) 13 7 - 40 U/L MAIN LAB CO2 23 21 - 30 MMOL/L MAIN LAB ALT (SGPT) 6 (L) 7 [...] for questions. Specimen Blood Performing Organization Address City/[facility]/Zipcode Phone Number [facility] MAIN [facility] [address] [place] [address] * CBC (12/15/2017 1:50 PM) White Blood Cells 8.3 4.5 - 11.0 K/UL [facility] RBC 4.79 4.0 - 5.0 M/UL [facility] Hemoglobin 11.3 (L) 12.0 - 15.0 GM/DL [facility] Hematocrit 35.1 (L) 36 - 45 % [facility] MCV 73.2 (L) 80 - 100 FL [facility] MCH 23.5 (L) 26 - 34 PG [facility] MCHC 32.1 32.0 - 36.0 G/DL [facility] RDW 18.5 (H) 11 - 15 % [facility] Platelet Count 351 150 - 400 K/UL [facility] MPV 8.1 7 - 11 FL [facility] Specimen Blood Performing Organization Address City/[facility]/Zipcode Phone Number MAIN LAB [address] [place] [address] in this encounter Visit Diagnoses Diagnosis Atrial fibrillation, unspecified type (HCC) - Primary
--- OUTSIDE RECORDS SUMMARY | 2018-02-27 16:11 | XMS REPORT | Encounter Summary ---
Author Author [facility] Organization [facility] Address Unknown Phone Unavailable Care Team Providers Care Turning Lathe Tender Name Role Phone Martinez Soni MD PCP Lukas Bland MD Unavailable Reason for Referral * Test Status Reason Specialty Diagnoses / Referred By Referred To Procedures Contact Contact New Request Diagnoses Vidal Longo, PAF (paroxysmal MD atrial [address]) St ([facility]) [address] Preop [place], [place] cardiovascular [address] exam Phone: Cardiac [phone] pacemaker Fax: P [phone] rocedures 2-D + DOPPLER ECHOCARDIOGRAM Reason for Visit * Reason Comments New Patient Ref. Dr. Bland for LING Closure Encounter Details Date Type Department Care Team Description 12/06/2017 Office Visit [facility], Miscellaneous PAF (paroxysmal atrial Cardi[facility] Surgeons D fibrillation) ([facility]) [place] [address] Vidal cook MD (Primary Dx); [address] [place] [address] [address] ischemia, unspecified [phone] [place] [address] type; [phone] Rectal bleeding; H/O hemorrhoids; SSS (sick sinus syndrome) ([facility]); Cardiac pacemaker; Preop cardiovascular exam; S/P laparoscopic fundoplication; Aortic valve insufficiency, etiology of cardiac valve disease unspecified; Type 2 diabetes mellitus with complication, without long-term current use of insulin ([facility]) Social History Tobacco Use Types Packs/Day Years Used Date Never Smoker Smokeless Tobacco: Never Used Alcohol Use Drinks/Week oz/Week Comments No Sex Assigned at Date Recorded Not on file as of this encounter Last Filed Vital Signs Vital Sign Reading Time Taken Blood Pressure 106/70 12/06/2017 12:19 PM CDT Pulse 88 12/06/2017 12:19 PM CDT Temperature - - Respiratory Rate - - Oxygen Saturation 98% 12/06/2017 12:19 PM CDT Inhaled Oxygen - - Concentration Weight 79.7 kg (175 lb 11.2 oz) 12/06/2017 12:19 PM CDT Height 167.6 cm (5' 5.98") 12/06/2017 12:19 PM CDT Body Mass Index 28.37 12/06/2017 12:19 PM CDT in this encounter Progress Notes * Vidal Longo MD - 12/06/2017 12:30 PM CDT Formatting of this note may be different from the original. Date of Service: 12/06/2017 Subjective: Aga Bautista is a 82 y.o. female. History of Present Illness We had the [...] permanent pacemaker placement dual-chamber on 11/25/2017 at [facility]. 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 Webb, to discuss options for [...] Cardiac pacemaker 11/25/2017 Congestive heart failure (CHF) (HCC) Diabetes mellitus ([facility]) GERD (gastroesophageal reflux disease) H/O hemorrhoids HLD (hyperlipidemia) 10/22/2017 HTN (hypertension) 10/22/2017 Hypothyroidism IBS (irritable bowel syndrome) PAF (paroxysmal atrial fibrillation) ([facility]) 10/22/2017 Rectal bleeding 10/29/2017 S/P laparoscopic fundoplication 2005 2/2 GERD SSS (sick sinus syndrome) ([facility]) 10/22/2017 TIA (transient ischemic attack) 10/22/2017 Past Surgical History: Procedure Laterality Date GASTRIC FUNDOPLICATION 2006 Gastric Banding Surgery PACEMAKER INSERTION 11/25/2017 APPENDECTOMY [...] normal. Assessment: 1. PAF (paroxysmal atrial fibrillation) ([facility]) 2. Transient cerebral ischemia, unspecified type 3. Rectal bleeding 4. H/O hemorrhoids 5. SSS (sick sinus syndrome) ([facility]) 6. Cardiac pacemaker 7. Preop cardiovascular exam 8. S/P laparoscopic fundoplication 9. Aortic valve insufficiency, etiology of cardiac valve disease unspecified 10. Type 2 diabetes mellitus with complication, without long-term current use of insulin ([facility]) 11. Gastroesophageal reflux disease, esophagitis [...] resolved prior to surgery. Lisy Fry APRN [facility] 12/06/2017 1:43 [...] it and to touch base with her marine operations coordinator should this fail to improve in the [...] patient's satisfaction. Will proceed with surgery electively Consults in this encounter Plan of Treatment Name Priority Associated Diagnoses Order Schedule 2-D + DOPPLER ECHOCARDIOGRAM Routine PAF (paroxysmal atrial Expected: , fibrillation) ([facility]) Expires: 12/06/2018 Preop cardiovascular exam Cardiac pacemaker PFT COMPLETE PULM FUNCTION Routine PAF (paroxysmal atrial Ordered: 12/06 fibrillation) ([facility]) Preop cardiovascular exam Cardiac pacemaker as of this encounter Visit Diagnoses Diagnosis PAF (paroxysmal atrial fibrillation) ([facility]) - Primary Atrial fibrillation Transient cerebral ischemia, unspecified type Rectal bleeding Hemorrhage of rectum and anus H/O hemorrhoids Personal history of other specified diseases SSS (sick sinus syndrome) ([facility]) Sinoatrial node dysfunction Cardiac pacemaker Cardiac pacemaker in situ Preop cardiovascular exam Pre-operative cardiovascular examination S/P laparoscopic fundoplication Other postprocedural status Aortic valve insufficiency, etiology of cardiac valve disease unspecified Type 2 diabetes mellitus with complication, without long-term current use of insulin ([facility]) Gastroesophageal reflux disease, esophagitis presence not specified Hypertension, unspecified type Hyperlipidemia, unspecified hyperlipidemia type Hypothyroidism, unspecified type
--- OUTSIDE RECORDS SUMMARY | 2018-02-27 16:22 | XMS REPORT | Continuity of Care Document ---
Author Author [facility] Organization [facility] Address Unknown Phone Unavailable Allergies Active Description Code Type Severity Reaction Onset Reported/Identified Relationship to Patient Clinical Status Yes cephalexin [id number] Drug Allergy Unknown N/A 07/26/2007 Yes erythromycin base [id number] Drug Allergy Unknown N/A 07/26/2007 Yes furosemide [id number] Drug Allergy Unknown N/A 07/26/2007 Yes Penicillins [id number] Drug Allergy Unknown N/A 07/26/2007 Yes Shellfish [id number] Drug Allergy Unknown N/A 07/26/2007 Yes Sulfa (Sulfonamide Antibiotics) [id number] Drug Allergy Unknown N/A 2007 Yes TAPE TAPE Unknown N/A 07/26/2007 Yes tetracycline [id number] Drug Allergy Unknown N/A 07/26/2007 Yes ciprofloxacin [id number] Drug Allergy Unknown N/A 02/01/2009 Yes azithromycin [id number] Drug Allergy Unknown ITCHING 08/05/2013 Yes nitrofurantoin [id number] Drug Allergy Unknown ITCHING/"THICK 08/05/2013 Medications There [...] ELLIS MD Ot 414.01 CORONARY ATHEROSCLEROSIS OF [place] CORON 01/02/2013 SMITH ELLIS MD Ot 427.31 [...] LEE MD Ot 414.01 CORONARY ATHEROSCLEROSIS OF [place] CORON 04/05/2013 MINDI LEE MD Ot 427.31 [...] Ot V58.61 ANTICOAGULANTS,LT,CURRENT USE 08/05/2013 ZENIA MEDINA CHEESE GRADER Ot 401.9 HYPERTENSION NOS 08/05/2013 ZENIA MEDINA CHEESE GRADER Ot 564.00 UNSPEC CONSTIPATION 08/05/2013 ZENIA MEDINA CHEESE GRADER Ot 787.20 DYSPHAGIA, UNSPECIFIED 08/07/2013 SMITH ELLIS MD Ot 244.9 HYPOTHYROIDISM NOS 08/07/2013 SMITH ELLIS MD Ot 285.9 ANEMIA NOS 08/07/2013 CALEB GARIBAY, SMITH Timmons Ot 401.9 HYPERTENSION NOS 08/07/2013 CALEB GARIBAY, SMITH Timmons Ot 532.90 DUODENAL ULCER NOS 08/07/2013 SMITH ELLIS MD Ot 535.40 OTH SPECIFIED GASTRITIS,W/O MENTION OF H 08/07/2013 SMITH ELLIS MD Ot 578.9 GASTROINTEST HEMORR NOS 06/19/2014 ZENIA MEDINA CHEESE GRADER Ot 473.9 CHRONIC SINUSITIS NOS 06/19/2014 ZENIA MEDINA CHEESE GRADER Ot 780.79 OTH MALAISE FATIGUE 06/19/2014 ZENIA MEDINA CHEESE GRADER Ot 787.02 NAUSEA ALONE 06/19/2014 ZENIA MEDINA CHEESE GRADER Ot V58.69 OTH MED,LT,CURRENT USE 07/30/2014 HERMANN [...] GARIBAY, JOSEKI Ot 427.31 08/20/2014 ARISTIDES GARIBAY, EHATHERAAKI Ot 530.81 08/20/2014 ARISTIDES GARIBAY, ALAINA Ot [...] Ot 786.50 CHEST PAIN NOS 03/04/2016 DANIELLEESTHER IVNSON DO Ot 959.11 OTH INJURY OF CHEST WALL 03/04/2016 ESTHER DANIELLE DO Ot E000.8 OTHER EXTERNAL CAUSE STATUS 03/04/2016 ESTHER DANIELLE DO Ot E928.9 ACCIDENT NOS 03/10/2016 BEBETO HOLLINGSWROTH MD Ot E78.5 HYPERLIPIDEMIA, UNSPECIFIED 03/10/2016 BEBETO HOLLINGSWORTH MD Ot F41.8 OTHER SPECIFIED ANXIETY DISORDERS 03/10/2016 BEBETO HOLLINGSWORTH MD Ot I10 ESSENTIAL (PRIMARY) HYPERTENSION 03/10/2016 BEBETO HOLLINGSWORTH MD Ot I48.0 PAROXYSMAL ATRIAL FIBRILLATION 03/10/2016 BEBETO HOLLINGSWORTH MD Ot I49.5 SICK SINUS SYNDROME 03/10/2016 BEBETO HOLLINGSWORTH MD Ot Z79.01 TIMBER MANAGEMENT TECHNICIAN (CURRENT) USE OF ANTICOAGULANT 03/10/2016 BEBETO HOLLINGSWORTH MD Ot Z79.899 OTHER CORRECTION (CURRENT) DRUG THERAPY 03/10/2016 BEBETO HOLLINGSWORTH MD [...] SYNDROME 03/27/2016 BEBETO HOLLINGSWORTH MD Ot Z79.01 TIMBER MANAGEMENT TECHNICIAN (CURRENT) USE OF ANTICOAGULANT 03/27/2016 BEBETO HOLLINGSWORTH MD Ot Z79.899 OTHER TIMBER MANAGEMENT TECHNICIAN (CURRENT) DRUG THERAPY 03/27/2016 BEBETO HOLLINGSWORTH MD, [...] SYNDROME 04/09/2016 BEBETO HOLLINGSWORTH MD, Ot Z79.01 CORRECTION (CURRENT) USE OF ANTICOAGULANT 04/09/2016 BEBETO HOLLINGSWORTH MD, Ot Z79.899 OTHER TIMBER MANAGEMENT TECHNICIAN (CURRENT) DRUG THERAPY 04/09/2016 BEBETO HOLLINGSWORTH [...] DO, Ot I25.10 ATHSCL HEART DISEASE OF [place] CORONARY 08/12/2016 ESTHER DANIELLE DO, Ot I42.9 [...] PAT 08/12/2016 ESTHER DANIELLE DO Ot Z79.01 TIMBER MANAGEMENT TECHNICIAN (CURRENT) USE OF ANTICOAGULANT 08/12/2016 ESTHER DANIELLE [...] 08/22/2016 ZENIA MEDINA APRN Ot Z79.899 OTHER CORRECTION (CURRENT) DRUG THERAPY 08/28/2016 ALAINA IRVING MD [...] MD, Ot I25.10 ATHSCL HEART DISEASE OF [place] CORONARY 08/28/2016 ALAINA IRVING MD Ot I42.9 CARDIOMYOPATHY, UNSPECIFIED 08/28/2016 ALAINA IRVING MD Ot I48.91 UNSPECIFIED ATRIAL FIBRILLATION 08/28/2016 ALAINA IRVING MD Ot K21.9 GASTRO-ESOPHAGEAL REFLUX DISEASE WITHOUT 08/28/2016 ALAINA IRVING MD Ot K62.3 RECTAL PROLAPSE 08/28/2016 ALAINA IRVING MD, Ot K64.2 THIRD DEGREE HEMORRHOIDS 08/28/2016 ALAINA IRVING MD, Ot M81.0 AGE-RELATED OSTEOPOROSIS W/O CURRENT PAT 08/28/2016 ALAINA IRVING MD, Ot Z79.01 TIMBER MANAGEMENT TECHNICIAN (CURRENT) USE OF ANTICOAGULANT 08/31/2016 KITCHENMARK REYNA [...] ALMA Ot I25.10 ATHSCL HEART DISEASE OF [place] CORONARY 08/31/2016 FIDELINA REYNA ALMA Ot I42.9 CARDIOMYOPATHY, UNSPECIFIED 08/31/2016 KITCHEN DO ALMA Ot I48.91 UNSPECIFIED ATRIAL FIBRILLATION 08/31/2016 FIDELINA REYNA ALMA Ot K21.9 GASTRO-ESOPHAGEAL REFLUX DISEASE WITHOUT 08/31/2016 IFDELINA REYNA ALMA Ot K62.3 RECTAL PROLAPSE 08/31/2016 FIDELINA REYNA ALMA Ot K64.2 THIRD DEGREE HEMORRHOIDS 08/31/2016 FIDELINA REYNA ALMA Ot K64.9 UNSPECIFIED HEMORRHOIDS 08/31/2016 FIDELINA REYNA ALMA Ot M81.0 AGE-RELATED OSTEOPOROSIS W/O CURRENT PAT 08/31/2016 FIDELINA REYNA ALMA Ot Z79.01 CORRECTION (CURRENT) USE OF ANTICOAGULANT 09/03/2016 ALAINA IRVING [...] MD, Ot I25.10 ATHSCL HEART DISEASE OF [place] CORONARY 09/03/2016 ALAINA IRVING MD, Ot I42.9 CARDIOMYOPATHY, UNSPECIFIED 09/03/2016 ALAINA IRVING MD, Ot I48.91 UNSPECIFIED ATRIAL FIBRILLATION 09/03/2016 ALAINA IRVING MD, Ot K21.9 GASTRO-ESOPHAGEAL REFLUX DISEASE WITHOUT 09/03/2016 ALAINA IRVING MD, Ot K62.3 RECTAL PROLAPSE 09/03/2016 ALAINA IRVING MD, Ot K64.2 THIRD DEGREE HEMORRHOIDS 09/03/2016 ALAINA IRVING MD, Ot M81.0 AGE-RELATED OSTEOPOROSIS W/O CURRENT PAT 09/03/2016 ALAINA IRVING MD, Ot Z79.01 TIMBER MANAGEMENT TECHNICIAN (CURRENT) USE OF ANTICOAGULANT 09/21/2016 DEVI BERGERON [...] 09/21/2016 DEVI BERGERON MD Ot Z79.899 OTHER CORRECTION (CURRENT) DRUG THERAPY 09/22/2016 DEVI BERGERON MD [...] 09/22/2016 DEVI BERGERON MD Ot Z79.899 OTHER TIMBER MANAGEMENT TECHNICIAN (CURRENT) DRUG THERAPY 09/23/2016 DEVI BERGERON MD [...] 09/23/2016 DEVI BERGERON MD Ot Z79.899 OTHER TIMBER MANAGEMENT TECHNICIAN (CURRENT) DRUG THERAPY 10/10/2016 DEVI BERGERON MD [...] 10/10/2016 DEVI BERGERON MD Ot Z79.899 OTHER CORRECTION (CURRENT) DRUG THERAPY 11/26/2016 ESTHER DANIELLE DO [...] MD, Ot I25.10 ATHSCL HEART DISEASE OF [place] CORONARY 01/02/2017 ALAINA IRVING MD, Ot I42.9 CARDIOMYOPATHY, UNSPECIFIED 01/02/2017 ALAINA IRVING MD, Ot I48.91 UNSPECIFIED ATRIAL FIBRILLATION 01/02/2017 ALAINA IRVING MD, Ot K21.9 GASTRO-ESOPHAGEAL REFLUX DISEASE WITHOUT 01/02/2017 ALAINA IRVING MD, Ot K62.3 RECTAL PROLAPSE 01/02/2017 ALAINA IRVING MD, Ot K64.2 THIRD DEGREE HEMORRHOIDS 01/02/2017 ALAINA IRVING MD, Ot M81.0 AGE-RELATED OSTEOPOROSIS W/O CURRENT PAT 01/02/2017 ALAINA IRVING MD, Ot Z79.01 CORRECTION (CURRENT) USE OF ANTICOAGULANT 01/29/2017 MIRACLE HICKMAN [...] DO Ot I25.10 ATHSCL HEART DISEASE OF [place] CORONARY 01/29/2017 MIRACLE HICKMAN DO Ot I42.9 [...] M Ot I25.10 ATHSCL HEART DISEASE OF [place] CORONARY 06/28/2017 CALEB GARIBAY, SMITH M Ot I48.91 UNSPECIFIED ATRIAL FIBRILLATION 06/28/2017 CALEB GARIBAY, SMITH M Ot K29.70 GASTRITIS, UNSPECIFIED, WITHOUT BLEEDING 06/28/2017 CALEB GARIBAY, SMITH M Ot R13.10 DYSPHAGIA, UNSPECIFIED 06/28/2017 CALEB GARIBAY, SMITH M Ot Z79.899 OTHER TIMBER MANAGEMENT TECHNICIAN (CURRENT) DRUG THERAPY 06/28/2017 SMITH ELLIS MD [...] Timmons Ot I25.10 ATHSCL HEART DISEASE OF [place] CORONARY 06/29/2017 CALEB GARIBAY, SMITH Timmons Ot I48.91 UNSPECIFIED ATRIAL FIBRILLATION 06/29/2017 CALEB GARIBAY, SMITH Timmons Ot K29.70 GASTRITIS, UNSPECIFIED, WITHOUT BLEEDING 06/29/2017 CALEB GARIBAY, SMITH M Ot R13.10 DYSPHAGIA, UNSPECIFIED 06/29/2017 CALEB GARIBAY, SMITH M Ot Z79.899 OTHER TIMBER MANAGEMENT TECHNICIAN (CURRENT) DRUG THERAPY 06/29/2017 SMITH ELLIS MD [...] MD, Ot I25.10 ATHSCL HEART DISEASE OF [place] CORONARY 06/30/2017 ALAINA IRVING MD Ot I42.9 CARDIOMYOPATHY, UNSPECIFIED 06/30/2017 ALAINA IRVING MD, Ot I48.91 UNSPECIFIED ATRIAL FIBRILLATION 06/30/2017 ALAINA IRVING MD, Ot K21.9 GASTRO-ESOPHAGEAL REFLUX DISEASE WITHOUT 06/30/2017 ALAINA IRVING MD, Ot K62.3 RECTAL PROLAPSE 06/30/2017 ALAINA IRVING MD, Ot K64.2 THIRD DEGREE HEMORRHOIDS 06/30/2017 ALAINA IRVING MD, Ot M81.0 AGE-RELATED OSTEOPOROSIS W/O CURRENT PAT 06/30/2017 ALAINA IRVING MD, Ot Z79.01 TIMBER MANAGEMENT TECHNICIAN (CURRENT) USE OF ANTICOAGULANT 11/22/2017 Ot 477.9 [...] Ot E928.9 ACCIDENT NOS 11/22/2017 BEBETO HOLLINGSWORTH MD, Ot E78.5 HYPERLIPIDEMIA, UNSPECIFIED 11/22/2017 BEBETO HOLLINGSWORTH MD, Ot F41.8 OTHER SPECIFIED ANXIETY DISORDERS 11/22/2017 BEBETO HOLLINGSWORTH MD, Ot I10 ESSENTIAL (PRIMARY) HYPERTENSION 11/22/2017 BEBETO HOLLINGSWORTH MD Ot I48.0 PAROXYSMAL ATRIAL FIBRILLATION 11/22/2017 BEBETO HOLLINGSWORTH MD, Ot I49.5 SICK SINUS SYNDROME 11/22/2017 BEBETO HOLLINGSWORTH MD, Ot Z79.01 CORRECTION (CURRENT) USE OF ANTICOAGULANT 11/22/2017 BEBETO HOLLINGSWORTH MD, Ot Z79.899 OTHER TIMBER MANAGEMENT TECHNICIAN (CURRENT) DRUG THERAPY 11/22/2017 BEBETO HOLLINGSWORTH MD, Ot Z86.73 PRSNL HX OF TIA (TIA), AND CEREB INFRC W 11/22/2017 ESTHER DANIELLE DO Ot M25.512 PAIN IN LEFT SHOULDER 11/23/2017 RUBY WYNN Ot E03.9 HYPOTHYROIDISM, UNSPECIFIED 11/23/2017 RUBY WYNN Ot E11.9 TYPE 2 DIABETES MELLITUS WITHOUT COMPLIC 11/23/2017 RUBY WYNN Ot F32.9 MAJOR DEPRESSIVE DISORDER, SINGLE EPISOD 11/23/2017 RUBY WYNN Ot F41.9 ANXIETY DISORDER, UNSPECIFIED 11/23/2017 RUBY WYNN Ot I10 ESSENTIAL (PRIMARY) HYPERTENSION 11/23/2017 RUBY WYNN Ot I25.10 ATHSCL HEART DISEASE OF [place] CORONARY 11/23/2017 RUBY WYNN Ot I48.91 UNSPECIFIED ATRIAL FIBRILLATION 11/23/2017 RUBY WYNN Ot J45.909 UNSPECIFIED ASTHMA, UNCOMPLICATED 11/23/2017 RUBY WYNN Ot K21.0 GASTRO-ESOPHAGEAL REFLUX DISEASE WITH ES 11/23/2017 RUBY WYNN Ot K59.00 CONSTIPATION, UNSPECIFIED 11/23/2017 RUBY WYNN Ot M81.0 AGE-RELATED OSTEOPOROSIS W/O CURRENT PAT 11/23/2017 RUBY WYNN Ot Z87.19 PERSONAL HISTORY OF OTHER DISEASES OF TH 11/23/2017 CRISTY WYNNIS Ot Z88.0 ALLERGY STATUS TO PENICILLIN 11/23/2017 BERNGAB RUBY Ot Z88.1 ALLERGY STATUS TO OTHER ANTIBIOTIC AGENT 11/23/2017 BERNGAB RUBY Ot Z88.2 ALLERGY STATUS TO SULFONAMIDES STATUS 11/23/2017 JANETRUBY DE GUZMAN Ot Z88.8 ALLERGY STATUS TO OTH DRUG/MEDS/BIOL SUB 11/23/2017 BERNRUBY DE GUZMAN Ot Z90.49 ACQUIRED ABSENCE OF OTHER SPECIFIED PART 11/23/2017 BERNRUBY DE GUZMAN Ot Z90.710 ACQUIRED ABSENCE OF BOTH CERVIX AND UTER 11/23/2017 BERNRUBY DE GUZMAN Ot Z90.89 ACQUIRED ABSENCE OF OTHER ORGANS 11/23/2017 BERNRUBY DE GUZMAN Ot Z91.013 ALLERGY TO SEAFOOD 11/23/2017 JANETRUBY DE GUZMAN Ot Z95.0 PRESENCE OF CARDIAC PACEMAKER 11/23/2017 JANETRUBY DE GUZMAN Ot Z99.2 DEPENDENCE ON RENAL DIALYSIS 11/23/2017 Ot 477.9 ALLERGIC RHINITIS NOS 11/23/2017 CALEB GARIBAY, SMITH Timmons Ot V72.84 EXAM PRE-OPERATIVE NOS 11/23/2017 ESTHER DANIELLE DO Ot 564.00 UNSPEC CONSTIPATION 11/23/2017 ESTHER DANIELLE DO Ot 789.00 ABDOMINAL PAIN, UNSPECIFIED SITE 11/23/2017 CALEB GARIBAY, SMITH Timmons Ot V72.84 EXAM PRE-OPERATIVE NOS 11/23/2017 ESTHER DANIELLE DO Ot 786.50 CHEST PAIN NOS 11/23/2017 ESTHER DANIELLE DO Ot 959.11 OTH INJURY OF CHEST WALL 11/23/2017 ESTHER DANIELLE DO Ot E000.8 OTHER EXTERNAL CAUSE STATUS 11/23/2017 ESTHER DANIELLE DO Ot E928.9 ACCIDENT NOS 11/23/2017 EDEL GARIBAY, BEBETO De Los Santos Ot E78.5 HYPERLIPIDEMIA, UNSPECIFIED 11/23/2017 BEBETO HOLLINGSWORTH MD Ot F41.8 OTHER SPECIFIED ANXIETY DISORDERS 11/23/2017 BEBETO HOLLINGSWORTH MD Ot I10 ESSENTIAL (PRIMARY) HYPERTENSION 11/23/2017 BEBETO HOLLINGSWORTH MD Ot I48.0 PAROXYSMAL ATRIAL FIBRILLATION 11/23/2017 BEBETO HOLLINGSWORTH MD Ot I49.5 SICK SINUS SYNDROME 11/23/2017 BEBETO HOLLINGSWORTH MD Ot Z79.01 CORRECTION (CURRENT) USE OF ANTICOAGULANT 11/23/2017 BEBETO HOLLINGSWORTH MD Ot Z79.899 OTHER CORRECTION (CURRENT) DRUG THERAPY 11/23/2017 BEBETO HOLLINGSWORTH MD, Ot Z86.73 PRSNL HX OF TIA (TIA), AND CEREB INFRC W 11/23/2017 ESTHER DANIELLE DO Ot M25.512 PAIN IN LEFT SHOULDER 11/25/2017 ESTHER DANIELLE DO, Ot Z51.81 ENCOUNTER FOR THERAPEUTIC DRUG LEVEL MON 11/25/2017 ESTHER DANIELLE DO, Ot Z79.899 OTHER TIMBER MANAGEMENT TECHNICIAN (CURRENT) DRUG THERAPY 11/26/2017 Iain GRANT MD, Ot E78.5 HYPERLIPIDEMIA, UNSPECIFIED 11/26/2017 Iain GRANT MD Ot I10 ESSENTIAL (PRIMARY) HYPERTENSION 11/26/2017 Iain GRANT MD Ot I48.0 PAROXYSMAL ATRIAL FIBRILLATION 11/26/2017 Iain GRANT MD Ot I49.5 SICK SINUS SYNDROME 11/26/2017 Iain GRANT MD, Ot Z79.899 OTHER CORRECTION (CURRENT) DRUG THERAPY 11/26/2017 Iain GRANT MD, Ot Z86.73 PRSNL HX OF TIA (TIA), AND CEREB INFRC W 11/30/2017 Iain GRANT MD Ot E78.5 HYPERLIPIDEMIA, UNSPECIFIED 11/30/2017 Iain GRANT MD Ot I10 ESSENTIAL (PRIMARY) HYPERTENSION 11/30/2017 Iain GRANT MD Ot I48.0 PAROXYSMAL ATRIAL FIBRILLATION 11/30/2017 Iain GRANT MD Ot I49.5 SICK SINUS SYNDROME 11/30/2017 Iain GRANT MD Ot Z79.899 OTHER TIMBER MANAGEMENT TECHNICIAN (CURRENT) DRUG THERAPY 11/30/2017 Iain GRANT MD Ot Z86.73 PRSNL HX OF TIA (TIA), AND CEREB INFRC W 12/04/2017 DEVI BERGERON MD Ot D64.9 ANEMIA, UNSPECIFIED 12/04/2017 DEVI BERGERON MD Ot E03.9 HYPOTHYROIDISM, UNSPECIFIED 12/04/2017 DEVI BERGERON MD Ot E11.9 TYPE 2 DIABETES MELLITUS WITHOUT COMPLIC 12/04/2017 DEVI BERGERON MD Ot F32.9 MAJOR DEPRESSIVE DISORDER, SINGLE EPISOD 12/04/2017 DEVI BERGERON MD, Ot F41.9 ANXIETY DISORDER, UNSPECIFIED 12/04/2017 DEVI BERGERON MD Ot G47.30 SLEEP APNEA, UNSPECIFIED 12/04/2017 DEVI BERGERON MD Ot G89.18 OTHER ACUTE POSTPROCEDURAL PAIN 12/04/2017 DEVI BERGERON MD Ot I10 ESSENTIAL (PRIMARY) HYPERTENSION 12/04/2017 DEVI BERGERON MD Ot I25.10 ATHSCL HEART DISEASE OF [place] CORONARY 12/04/2017 DEVI BERGERON MD Ot I48.91 UNSPECIFIED ATRIAL FIBRILLATION 12/04/2017 DEVI BERGERON MD Ot J45.909 UNSPECIFIED ASTHMA, UNCOMPLICATED 12/04/2017 DEVI BERGERON MD, Ot K21.9 GASTRO-ESOPHAGEAL REFLUX DISEASE WITHOUT 12/04/2017 DEVI BERGERON MD, Ot L25.9 UNSPECIFIED CONTACT DERMATITIS, UNSPECIF 12/04/2017 DEVI BERGERON MD, Ot M81.0 AGE-RELATED OSTEOPOROSIS W/O CURRENT PAT 12/04/2017 DEVI BERGERON MD, Ot Z87.19 PERSONAL HISTORY OF OTHER DISEASES OF TH 12/04/2017 DEVI BERGERON MD, Ot Z87.448 PERSONAL HISTORY OF OTHER DISEASES OF UR 12/04/2017 DEVI BERGERON MD, Ot Z88.0 ALLERGY STATUS TO PENICILLIN 12/04/2017 DEVI BERGERON MD, Ot Z88.1 ALLERGY STATUS TO OTHER ANTIBIOTIC AGENT 12/04/2017 DEVI BERGERON MD, Ot Z88.2 ALLERGY STATUS TO SULFONAMIDES STATUS 12/04/2017 DEVI BERGERON MD, Ot Z88.8 ALLERGY STATUS TO OTH DRUG/MEDS/BIOL SUB 12/04/2017 DEVI BERGERON MD Ot Z90.710 ACQUIRED ABSENCE OF BOTH CERVIX AND UTER 12/04/2017 DEVI BERGERON MD Ot Z90.89 ACQUIRED ABSENCE OF OTHER ORGANS 12/04/2017 DEVI BERGERON MD Ot Z91.048 OTHER NONMEDICINAL SUBSTANCE ALLERGY STA 12/04/2017 DEVI BERGERON MD Ot Z95.0 PRESENCE OF CARDIAC PACEMAKER 12/04/2017 DEVI BERGERON MD Ot Z98.890 OTHER SPECIFIED POSTPROCEDURAL STATES 12/06/2017 DEVI BERGERON MD, Ot D64.9 ANEMIA, UNSPECIFIED 12/06/2017 DEVI BERGERON MD Ot E03.9 HYPOTHYROIDISM, UNSPECIFIED 12/06/2017 DEIV BERGERON MD Ot E11.9 TYPE 2 DIABETES MELLITUS WITHOUT COMPLIC 12/06/2017 DEVI BERGERON MD, Ot F32.9 MAJOR DEPRESSIVE DISORDER, SINGLE EPISOD 12/06/2017 DEVI BERGERON MD, Ot F41.9 ANXIETY DISORDER, UNSPECIFIED 12/06/2017 DEVI BERGERON MD Ot G47.30 SLEEP APNEA, UNSPECIFIED 12/06/2017 DEVI BERGERON MD Ot G89.18 OTHER ACUTE POSTPROCEDURAL PAIN 12/06/2017 DEVI BERGERON MD, Ot I10 ESSENTIAL (PRIMARY) HYPERTENSION 12/06/2017 DEVI BERGERON MD Ot I25.10 ATHSCL HEART DISEASE OF [place] CORONARY 12/06/2017 DEVI BERGERON MD Ot I48.91 UNSPECIFIED ATRIAL FIBRILLATION 12/06/2017 DEVI BERGERON MD Ot J45.909 UNSPECIFIED ASTHMA, UNCOMPLICATED 12/06/2017 DEVI BERGERON MD Ot K21.9 GASTRO-ESOPHAGEAL REFLUX DISEASE WITHOUT 12/06/2017 DEVI BERGERON MD, Ot L25.9 UNSPECIFIED CONTACT DERMATITIS, UNSPECIF 12/06/2017 DEVI BERGERON MD Ot M81.0 AGE-RELATED OSTEOPOROSIS W/O CURRENT PAT 12/06/2017 DEVI BERGERON MD Ot Z87.19 PERSONAL HISTORY OF OTHER DISEASES OF TH 12/06/2017 DEVI BERGERON MD, Ot Z87.448 PERSONAL HISTORY OF OTHER DISEASES OF UR 12/06/2017 DEVI BERGERON MD Ot Z88.0 ALLERGY STATUS TO PENICILLIN 12/06/2017 DEVI BERGERON MD Ot Z88.1 ALLERGY STATUS TO OTHER ANTIBIOTIC AGENT 12/06/2017 DVEI BERGERON MD, Ot Z88.2 ALLERGY STATUS TO SULFONAMIDES STATUS 12/06/2017 DEVI BERGERON MD, Ot Z88.8 ALLERGY STATUS TO OT DRUG/MEDS/BIOL SUB 12/06/2017 DEVI BERGERON MD Ot Z90.710 ACQUIRED ABSENCE OF BOTH CERVIX AND UTER 12/06/2017 DEVI BERGERON MD Ot Z90.89 ACQUIRED ABSENCE OF OTHER ORGANS 12/06/2017 DEVI BERGERON MD, Ot Z91.048 OTHER NONMEDICINAL SUBSTANCE ALLERGY STA 12/06/2017 DEVI BERGERON MD Ot Z95.0 PRESENCE OF CARDIAC PACEMAKER 12/06/2017 RUBIO GARIBAY, DEVI Haas Ot Z98.890 OTHER SPECIFIED POSTPROCEDURAL STATES 12/28/2017 ESTHER DANIELLE DO Ot R06.00 DYSPNEA, UNSPECIFIED 12/28/2017 ESTHER DANIELLE DO Ot Z01.811 ENCOUNTER FOR PREPROCEDURAL RESPIRATORY 01/04/2018 Ot I08.3 COMB RHEUMATIC DISORD OF MITRAL, AORTIC 01/04/2018 Ot I48.0 PAROXYSMAL ATRIAL FIBRILLATION 01/04/2018 Ot I49.5 SICK SINUS SYNDROME 01/04/2018 Ot I50.9 HEART FAILURE , UNSPECIFIED 01/04/2018 Ot T82.7XXA INFECT/ INFLM REACT D/T OTH CARDI/VASC DE 01/11/2018 ESTHER DANIELLE DO Ot R06.00 DYSPNEA, UNSPECIFIED 01/11/2018 ESTHER DANIELLE DO Ot Z01.811 ENCOUNTER FOR PREPROCEDURAL RESPIRATORY 01/14/2018 Ot I08.3 COMB RHEUMATIC DISORD OF MITRAL, AORTIC 01/14/2018 Ot I48.0 PAROXYSMAL ATRIAL FIBRILLATION 01/14/2018 Ot I49.5 SICK SINUS SYNDROME 01/14/2018 Ot I50.9 HEART FAILURE , UNSPECIFIED 01/14/2018 Ot T82.7XXA INFECT/ INFLM REACT D/T OTH CARDI/VASC DE Procedures Code Description Performed By Performed On 45.13 OTHER ENDOSCOPY OF SM INTEST 04/04/2013 44.43 ENDOSCOPIC CONTROL OF GASTRIC OR DUODENA 07/29/2014 [id number] EXCISION OF ESOPHAGOGASTRIC JUNCTION, EN 08/11/2016 [id number] EXCISION OF STOMACH, PYLORUS, ENDO, DIAG 08/11/2016 [id number] INSPECTION OF LOWER INTESTINAL TRACT, EN 08/11/2016 [...] ABO+Rh group OP NR Transfusion band number [id number] [facility] Blood group antibody screen NEGATIVE [facility] Methicillin resistant Staphylococcus aureus (MRSA) screening culture - 23:00 Methicillin resistant Staphylococcus aureus (MRSA) screening culture NEG [facility] Whole blood hemoglobin and hematocrit panel [...] LEUKO REDUCED AS1 PRSMD TRFSD 08/28/16 1454 NRG Blood type T Indirect antibody screen panel - 08/26/16 19:37 ABO+Rh group OP NRG Transfusion band number [id number] [facility] Blood group antibody screen NEGATIVE [facility] Methicillin [...] plasma albumin measurement (mass/volume) 3.4 g/dL 3.2-4.5 Automated blood complete blood count (hemogram) panel - 11/25/17 08:35 Blood leukocytes automated count (number/volume) 5.9 10*3/uL 4.3-11.0 Blood erythrocytes automated count (number/volume) 5.03 10*6/uL 4.35-5.85 Venous blood hemoglobin measurement (mass/volume) 11.8 g/dL 11.5-16.0 Blood hematocrit (volume fraction) 37 % 35-52 Automated erythrocyte mean corpuscular volume 74 [foz_us] 80-99 Automated erythrocyte mean corpuscular hemoglobin (mass per erythrocyte) 24 pg 25-34 Automated erythrocyte mean corpuscular hemoglobin concentration measurement ( mass/volume) 32 g/dL 32-36 Automated erythrocyte distribution width ratio 18.3 % 10.0-14.5 Automated blood platelet count (count/volume) 275 10*3/uL 130-400 Automated blood platelet mean volume measurement 10.1 [foz_us] 7.4-10.4 PT panel in platelet poor plasma by coagulation assay - 11/25/17 08:35 Prothrombin time (PT) in platelet poor plasma by coagulation assay 13.8 s 12.2-14.7 INR in platelet poor plasma or blood by coagulation assay 1.1 0.8-1.4 Activated partial thromboplastin time (aPTT) in platelet poor plasma bycoagulation assay - 11/25/17 08:35 Activated partial thromboplastin time (aPTT) in platelet poor plasma bycoagulation assay 32 s 24-35 Comprehensive metabolic panel - 11/25/17 08:35 Serum or plasma sodium measurement (moles/volume) 141 mmol/L 135-145 Serum or plasma potassium measurement (moles/volume) 4.1 mmol/L 3.6-5.0 Serum or plasma chloride measurement (moles/volume) 110 mmol/L 98-107 Carbon dioxide 25 mmol/L 21-32 Serum or plasma anion gap determination (moles/volume) 6 mmol/L 5-14 Serum or plasma urea nitrogen measurement (mass/volume) 17 mg/dL 7-18 Serum or plasma creatinine measurement (mass/volume) 0.98 mg/dL 0.60-1.30 Serum or plasma urea nitrogen/creatinine mass ratio 17 NRG Serum or plasma creatinine measurement with calculation of estimated glomerular filtration rate 55 NRG Serum or plasma glucose measurement (mass/volume) 118 mg/dL 70-105 Serum or plasma calcium measurement (mass/volume) 9.7 mg/dL 8.5-10.1 Serum or plasma total bilirubin measurement (mass/volume) 0.9 mg/dL 0.1-1.0 Serum or plasma alkaline phosphatase measurement (enzymatic activity/volume) 116 U/L 40-136 Serum or plasma aspartate aminotransferase measurement (enzymatic activity/ volume) 13 U/L 5-34 Serum or plasma alanine aminotransferase measurement (enzymatic activity/volume ) 9 U/L 0-55 Serum or plasma protein measurement (mass/volume) 7.6 g/dL 6.4-8.2 Serum or plasma albumin measurement (mass/volume) 4.1 g/dL 3.2-4.5 Lipid 1996 panel - 11/25/17 08:35 Serum or plasma triglyceride measurement (mass/volume) 120 mg/dL <150 Serum or plasma cholesterol measurement (mass/volume) 202 mg/dL < 200 Serum or plasma cholesterol in HDL measurement (mass/volume) 51 mg/ dL 40-60 Cholesterol in LDL [mass/volume] in serum or plasma by direct assay 130 mg/dL 1-129 Serum or plasma cholesterol in VLDL measurement (mass/volume) 24 mg/ dL 5-40 Methicillin resistant Staphylococcus aureus (MRSA) screening culture - 08:35 Methicillin resistant Staphylococcus aureus (MRSA) screening culture NEG NR Automated blood complete blood count (hemogram) panel - 11/26/17 03:25 Blood leukocytes automated count (number/volume) 5.4 10*3/uL 4.3-11.0 Blood erythrocytes automated count (number/volume) 4.51 10*6/uL 4.35-5.85 Venous blood hemoglobin measurement (mass/volume) 10.8 g/dL 11.5-16.0 Blood hematocrit (volume fraction) 34 % 35-52 Automated erythrocyte mean corpuscular volume 75 [foz_us] 80-99 Automated erythrocyte mean corpuscular hemoglobin (mass per erythrocyte) 24 pg 25-34 Automated erythrocyte mean corpuscular hemoglobin concentration measurement ( mass/volume) 32 g/dL 32-36 Automated erythrocyte distribution width ratio 17.6 % 10.0-14.5 Automated blood platelet count (count/volume) 207 10*3/uL 130-400 Automated blood platelet mean volume measurement 10.2 [foz_us] 7.4-10.4 Comprehensive metabolic panel - 11/26/17 03:25 Serum or plasma sodium measurement (moles/volume) 141 mmol/L 135-145 Serum or plasma potassium measurement (moles/volume) 3.9 mmol/L 3.6-5.0 Serum or plasma chloride measurement (moles/volume) 113 mmol/L 98-107 Carbon dioxide 21 mmol/L 21-32 Serum or plasma anion gap determination (moles/volume) 7 mmol/L 5-14 Serum or plasma urea nitrogen measurement (mass/volume) 14 mg/dL 7-18 Serum or plasma creatinine measurement (mass/volume) 0.87 mg/dL 0.60-1.30 Serum or plasma urea nitrogen/creatinine mass ratio 16 NRG Serum or plasma creatinine measurement with calculation of estimated glomerular filtration rate > NRG Serum or plasma glucose measurement (mass/volume) 104 mg/dL 70-105 Serum or plasma calcium measurement (mass/volume) 8.6 mg/dL 8.5-10.1 Serum or plasma total bilirubin measurement (mass/volume) 0.6 mg/dL 0.1-1.0 Serum or plasma alkaline phosphatase measurement (enzymatic activity/volume) 96 U/L 40-136 Serum or plasma aspartate aminotransferase measurement (enzymatic activity/ volume) 13 U/L 5-34 Serum or plasma alanine aminotransferase measurement (enzymatic activity/volume ) 6 U/L 0-55 Serum or plasma protein measurement (mass/volume) 6.1 g/dL 6.4-8.2 Serum or plasma albumin measurement (mass/volume) 3.5 g/dL 3.2-4.5 Complete blood count (CBC) with automated white blood cell (WBC) differential - 12/04/17 11:08 Blood leukocytes automated count (number/volume) 5.0 10*3/uL 4.3-11.0 Blood erythrocytes automated count (number/volume) 5.03 10*6/uL 4.35-5.85 Venous blood hemoglobin measurement (mass/volume) 12.1 g/dL 11.5-16.0 Blood hematocrit (volume fraction) 37 % 35-52 Automated erythrocyte mean corpuscular volume 74 [foz_us] 80-99 Automated erythrocyte mean corpuscular hemoglobin (mass per erythrocyte) 24 pg 25-34 Automated erythrocyte mean corpuscular hemoglobin concentration measurement ( mass/volume) 32 g/dL 32-36 Automated erythrocyte distribution width ratio 18.5 % 10.0-14.5 Automated blood platelet count (count/volume) 239 10*3/uL 130-400 Automated blood platelet mean volume measurement 9.9 [foz_us] 7.4-10.4 Automated blood neutrophils/100 leukocytes 57 % 42-75 Automated blood lymphocytes/100 leukocytes 24 % 12-44 Blood monocytes/100 leukocytes 11 % 0-12 Automated blood eosinophils/100 leukocytes 7 % 0-10 Automated blood basophils/100 leukocytes 2 % 0-10 Blood neutrophils automated count (number/volume) 2.9 10*3 1.8-7.8 Blood lymphocytes automated count (number/volume) 1.2 10*3 1.0-4.0 Blood monocytes automated count (number/volume) 0.5 10*3 0.0-1.0 Automated eosinophil count 0.4 10*3/uL 0.0-0.3 Automated blood basophil count (count/volume) 0.1 10*3/uL 0.0-0.1 Whole blood basic metabolic panel - 12/04/17 11:08 Serum or plasma sodium measurement (moles/volume) 141 mmol/L 135-145 Serum or plasma potassium measurement (moles/volume) 4.5 mmol/L 3.6-5.0 Serum or plasma chloride measurement (moles/volume) 109 mmol/L 98-107 Carbon dioxide 23 mmol/L 21-32 Serum or plasma anion gap determination (moles/volume) 9 mmol/L 5-14 Serum or plasma urea nitrogen measurement (mass/volume) 19 mg/dL 7-18 Serum or plasma creatinine measurement (mass/volume) 1.01 mg/dL 0.60-1.30 Serum or plasma urea nitrogen/creatinine mass ratio 19 NRG Serum or plasma creatinine measurement with calculation of estimated glomerular filtration rate 53 NRG Serum or plasma glucose measurement (mass/volume) 115 mg/dL 70-105 Serum or plasma calcium measurement (mass/volume) 10.0 mg/dL 8.5-10.1 Serum or plasma C reactive protein measurement (mass/volume) - 12/04/17 11:08 Serum or plasma C reactive protein measurement (mass/volume) 0.40 mg /dL 0.00-0.50 Encounters ACCT No. Visit Date/Time Discharge Status Pt. Type Provider Facility Loc./Unit Complaint [id number] 12/07/2017 12:15:00 12/07/2017 23:59:59 CLS Outpatient ESTHER DANIELLE DO [facility] RT DYSPNEA [id number] 12/04/2017 08:57:00 12/04/2017 12:01:00 DIS Emergency DEVI BERGERON MD [facility] ER LUMP BY PACE MAKER [id number] 11/25/2017 08:05:00 11/26/2017 11:20:00 DIS Outpatient Iain GRANT MD [facility] CATH SYMPTOMATIC SINUS NODE DYSFUCTION,AFIB [id number] 11/24/2017 11:40:00 11/24/2017 23:59:59 CLS Outpatient ESTHER DANIELLE DO [facility] RT AMIODARONE NEUROPY, MEDICATION MONITORING [id number] 11/23/2017 14:42:00 11/23/2017 17:09:00 DIS Emergency RUBY WYNN [facility] ER CONSTIPATION/FEVER [id number] 06/28/2017 07:34:00 06/28/2017 11:05:00 DIS Outpatient SMITH ELLIS MD [facility] ENDO GERD [id number] 06/24/2017 09:19:00 06/24/2017 10:29:00 DIS Outpatient SMITH ELLIS MD [facility] PREOP EGD [id number] 01/29/2017 20:55:00 01/29/2017 23:23:00 DIS Emergency MIRACLE HICKMAN DO [facility] ER R HAND THUMB PAIN [id number] 11/02/2016 12:08:00 11/02/2016 23:59:59 CLS Outpatient ESTHER DANIELLE DO [facility] RAD L SHOULDER PAIN [id number] 09/21/2016 18:41:00 09/21/2016 19:47:00 DIS Emergency DEVI BERGERON MD [facility] ER CHOKING [id number] 08/28/2016 12:32:00 08/31/2016 13:35:00 DIS Inpatient ALMA KITCHEN DO [facility] 4TH SWB-ANEMIA [id number] 08/26/2016 19:35:00 08/28/2016 12:31:00 DIS [facility] HEM[facility]RHO[facility] [id number] 08/22/2016 21:40:00 08/22/2016 23:26:00 DIS Emergency EZNIA MEDINA APRN [facility] ER RECTAL BLEEDING [id number] 08/09/2016 22:05:00 08/12/2016 14:30:00 DIS Inpatient ESTHER DANIELLE DO [facility] 4TH LOWER GIB, ABD PX, H/ O GASTRIK ULCERS [id number] 03/04/2016 10:45:00 03/04/2016 23:59:59 CLS Outpatient BEBETO HOLLINGSWORTH MD [facility] CATH AR,HTN,FATIGUE,PAF,SSS, DIZZINESS [id number] 02/13/2016 21:59:00 02/15/2016 13:48:00 DIS Inpatient ESTHER DANIELLE DO [facility] ICU TIA;UNCONTROLLED HTN; INTERMITTENT A.FIB [id number] 01/12/2016 22:44:00 01/13/2016 00:02:00 DIS Emergency SAMIRA ELLIOTT MD [facility] ER ABD PAIN/N/V [id number] 05/19/2015 09:06:00 05/19/2015 12:33:00 DIS Emergency JANIE GARIBAY, CARLINE Kennedy [facility] ER ELEVATED BP, DIARRHEA [id number] 10/31/2014 14:02:00 10/31/2014 23:59:59 CLS Outpatient ESTHER DANIELLE DO [facility] RAD CHEST PAIN [id number] 10/03/2014 11:39:00 10/03/2014 18:05:00 DIS Outpatient SMITH ELLIS MD [facility] SDC STRICTURE; ABNORMAL CT [id number] 09/27/2014 06:02:00 09/27/2014 23:59:59 CLS Outpatient SMITH ELLIS MD [facility] PREOP STRICTURE; ABNORMAL CT [id number] 08/23/2014 14:18:00 08/23/2014 23:59:59 CLS Outpatient ESTHER DANIELLE DO [facility] RAD CONSTIPATION,ABD PAIN [id number] 08/18/2014 10:00:00 08/20/2014 11:15:00 DIS Inpatient ALAINA IRVING MD [facility] SURGICAL PARTIAL BOWEL OBSTRUCTIN,UTI,RECENT GI BLEED [id number] 07/29/2014 02:11:00 07/30/2014 16:30:00 DIS Inpatient HERMANN BUTLER MD [facility] SURGICAL GI BLEED [id number] 06/19/2014 12:06:00 06/19/2014 14:07:00 DIS Emergency ZENIA MEDINA APRN [facility] ER NAUSEATED FEELS LIKE HEART IS RACING [id number] 08/07/2013 06:45:00 08/07/2013 10:20:00 DIS Outpatient SMITH ELLIS MD [facility] SDC GI BLEED [id number] 08/05/2013 09:17:00 08/05/2013 12:06:00 DIS Emergency ZENIA MEDINA APRN [facility] ER ELEVATED BP,NAUSEA [id number] 08/03/2013 07:27:00 08/03/2013 23:59:59 CLS Outpatient SMITH ELLIS MD [facility] PREOP GI BLEED [id number] 04/02/2013 10:19:00 04/05/2013 13:00:00 DIS Inpatient MINDI LEE MD [facility] SURGICAL GI BLEED [id number] 12/31/2012 13:04:00 01/02/2013 10:45:00 DIS Inpatient SMITH ELLIS MD [facility] SURGICAL BOWEL OBSTRUCTION [id number] 11/06/2012 15:55:00 11/07/2012 12:00:00 DIS Inpatient LORIE GARIBAY FACCKISHAN FACP CCDS [facility] CSD A FIB [id number] 02/27/2018 16:02:00 ACT Emergency EDWARD MG [facility] ER STOMACH ISSUES,CONGESTION [id number] 12/13/2017 09:11:00 Document Registration [id number] 08/12/2012 09:32:00 Document Registration [id number] 07/26/2012 08:35:00 Document Registration [id number] 07/03/2012 18:35:00 Document Registration [id number] 03/05/2012 03:50:00 Document Registration [id number] 01/27/2012 05:36:00 Document Registration [id number] 01/18/2012 07:30:00 Document Registration [id number] 12/28/2011 11:50:00 Document Registration [id number] 12/25/2011 08:22:00 Document Registration [id number] 12/23/2011 08:05:00 Document Registration [id number] 10/22/2011 07:43:00 Document Registration [id number] 09/09/2011 22:17:00 Document Registration [id number] 02/03/2011 13:43:00 Document Registration [id number] 01/15/2011 09:33:00 Document Registration [id number] 08/11/2010 16:30:00 Document Registration [id number] 02/14/2018 10:00:58 Document Registration
[2018-02-27 16:34] LABS: BILIRUBIN,URINE NEGATIVE (NEGATIVE); CLARITY,URINE CLEAR; COLOR,URINE YELLOW; GLUCOSE, URINE (UA) NEGATIVE (NEGATIVE); KETONES,URINE NEGATIVE (NEGATIVE); LEUKOCYTE ESTERASE ,URINE 2+ (NEGATIVE); NITRITE,URINE NEGATIVE (NEGATIVE); PH,URINE 5 (5-9); PROTEIN,URINE NEGATIVE (NEGATIVE); UROBILINOGEN,URINE 4 MG/DL (NORMAL)
[2018-02-27 16:42] LABS: BACTERIA,URINE NEGATIVE /HPF; WBC,URINE RARE /HPF
[2018-02-27] MEDS ORDERED: FLUT9.9S NS (16:50)
--- NOTE | 2018-02-27 16:51 | ED General ---
General Chief Complaint: General Problems/Pain Stated Complaint: STOMACH ISSUES,CONGESTION Nursing Triage Note: PT PRESENTS TO ER WITH COMPLAINT OF CONGESTION AND STOMACH ISSUES. PT BROUGHT URINE SAMPLE FROM HOME. Nursing Sepsis Screen: No Definite Risk History of Present Illness Date Seen by Provider: Feb 27, 2018 Time Seen by Provider: 16:15 Initial Comments 83-year-old female presents for mild abdominal discomfort and fatigue. She's had noticed sinus congestion for approximately one week. She has recurrent UTIs. She denies any recent fevers. She has a history of GERD and is currently taking Nexium. Her in the last 3 weeks. She was prescribed Xanax but is not taking it regularly. She denies any nausea or vomiting. In January she had 2 cardiac procedures, one at [facility] and 1 at that required chest tube placement temporarily. Timing/Duration: 1 Week Severity: Mild Associated Systoms: Denies Symptoms Allergies and Home Medications Allergies Coded Allergies: Penicillins (Verified Allergy, Unknown, 07/26/07) Shellfish (Verified Allergy, Unknown, 07/26/07) Sulfa (Sulfonamide Antibiotics) (Verified Allergy, Unknown, 07/26/07) azithromycin (Unverified Allergy, Unknown, ITCHING, 08/05/13) cephalexin (Verified Allergy, Unknown, 07/26/07) erythromycin base (Verified Allergy, Unknown, 07/26/07) furosemide (Verified Allergy, Unknown, 07/26/07) nitrofurantoin (Unverified Allergy, Unknown, ITCHING/"THICK TONGUE", ) tetracycline (Verified Allergy, Unknown, 07/26/07) Uncoded Allergies: TAPE (Allergy, Unknown, 07/26/07) Home Medications Acetaminophen 500 Mg Tablet, 500 MG PO BID PRN for PAIN-MILD, (Reported) Alprazolam 0.25 Mg Tablet, 0.25 MG PO Q8H PRN for ANXIETY, (Reported) Amiodarone HCl 200 Mg Tablet, 100 MG PO DAILY, (Reported) TAKES 1/2 (200MG) TABLET Amlodipine Besylate 5 Mg Tablet, 5 MG PO DAILY, (Reported) Clindamycin HCl 300 Mg Capsule, 300 MG PO TID Prescribed by: MIGUEL ÁNGEL DANIEL on 11/26/17 1001 Clindamycin HCl 300 Mg Capsule, 300 MG PO QID Prescribed by: DEVI KO on 12/04/17 1151 Cyanocobalamin 1,000 Mcg/Ml Inj, 1,000 MCG INJ MONTHLY, (Reported) Docusate Sodium 100 Mg Capsule, 100 MG PO DAILY PRN for CONSTIPATION-1ST LINE, ( Reported) Fexofenadine HCl 180 Mg Tablet, 180 MG PO DAILY PRN for ALLERGIES, (Reported) Fluticasone Propionate 9.9 Ml Foster.susp, 2 SPRAY NS DAILY 2 SPRAYS PER NOSTRIL DAILY X 2 DAYS THEN 1 SPRAY DAILY Prescribed by: EDWARD MG on 02/27/18 1650 Irbesartan 300 Mg Tablet, 300 MG PO DAILY, (Reported) Latanoprost 2.5 Ml Drops, 1 DROP OU HS, (Reported) Levothyroxine Sodium 50 Mcg Tablet, 50 MCG PO DAILY, (Reported) Loratadine 10 Mg Tablet, 10 MG PO DAILY Prescribed by: DEVI KO on 12/04/17 1152 Montelukast Sodium 10 Mg Tablet, 10 MG PO DAILY, (Reported) Omeprazole 40 Mg Capsule.dr, 40 MG PO HS, (Reported) Polyethylene Glycol 3350 17 Gm Powd.pack, 17 GM PO HS, (Reported) Potassium Chloride 10 Meq Tab.er.prt, 10 MEQ PO DAILY, (Reported) Temazepam 15 Mg Capsule, 15 MG PO HS PRN for INSOMNIA, (Reported) Trimethoprim 100 Mg Tablet, 100 MG PO HS, (Reported) Patient Home Medication List Home Medication List Reviewed: Yes Review of Systems Review of Systems Constitutional: no symptoms reported, see HPI EENTM: see HPI, nose congestion Gastrointestinal: see HPI, heartburn All Other Systems Reviewed Negative Unless Noted: Yes Past Aknjtcx-Wpxmdg-Cajcrc Hx Past Med/Social Hx: Reviewed Nursing Past Med/Soc Hx Patient Social History Alcohol Use: Denies Use Recreational Drug Use: No Smoking Status: Never a Smoker 2nd Hand Smoke Exposure: No Recent Foreign Travel: No Contact w/Someone Who Travel: No Recent Infectious Disease Expo: No Recent Hopitalizations: No Immunizations Up To Date Tetanus Booster (TDap): Less than 5yrs PED Vaccines UTD: No Date of Pneumonia Vaccine: October 03, 2016 Date of Influenza Vaccine: Feb 08, 2012 Seasonal Allergies Seasonal Allergies: Yes Past Medical History Surgeries: Yes (JUDE JENKINS) Abdominal, Appendectomy, Cardiac, Gallbladder, Hysterectomy, Pacemaker, Rectal, Thyroidectomy, Tonsillectomy Respiratory: Yes Asthma, Sleep Apnea Currently Using CPAP: Yes Currently Using BIPAP: No Cardiac: Yes (SINUS NODE DYSFUNCTION) Atrial Fibrillation, Cardiomyopathy, Chronic Edema/Swelling, Coronary Artery Disease, Hypertension Neurological: No 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 Disorders: 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 Genitourinary: Yes Bladder Infection Gastrointestinal: Yes Gastrointestinal Bleed, Hemorrhoids, Irritable Bowel Musculoskeletal: Yes (OSTEOARTHRITIS, FX RIGHT LOWER LEG, DISLOCATED RIGHT SHOULDER) Osteoporosis, Arthritis, Fractures Endocrine: Yes (THYROIDECTOMY; DIET CONTROLLED DIABETES) Hypothyroidsim, Diabetes, Non-Insulin dep HEENT: Yes Glaucoma Hearing Impairment: Hard of Hearing Cancer: No Psychosocial: Yes Anxiety, Depression Integumentary: No Blood Disorders: Yes (ANEMIA) Adverse Reaction/Blood Tranf: No Family Medical History Family history: Hypertension 03 FATHER, Onset:40's - 50 09 BROTHER, Onset:40's - 50 History of drug abuse 03 FATHER, Onset:20's - 25 Stroke 03 FATHER, Onset:60 years & older No Pertinent Family Hx Physical Exam Vital Signs Vital Signs - First Documented 02/27/18 16:09 Temp 98.6 Pulse 86 Resp 18 B/P (MAP) 149/93 (111) Pulse Ox 98 O2 Delivery Room Air Capillary Refill : Less Than 3 Seconds Height, Weight, BMI Height: 5'6.00" Weight: 165lbs. 0.0oz. 74.895210dr; 27.0 BMI Method:Stated General Appearance: No Apparent Distress, WD/WN Eyes: Bilateral Eye Normal Inspection, Bilateral Eye PERRL, Bilateral Eye EOMI HEENT: PERRL/EOMI, TMs Normal, Normal ENT Inspection, Other (postnasal drainage noted) Neck: Full Range of Motion, Normal Inspection, Non Tender, Supple Respiratory: Chest Non Tender, Lungs Clear, Normal Breath Sounds Cardiovascular: Regular Rate, Rhythm, No Edema, Normal Peripheral Pulses Gastrointestinal: Normal Bowel Sounds, Non Tender, Soft; No Distended, No Guarding Back: Normal Inspection, No CVA Tenderness Extremity: Normal Capillary Refill, Normal Inspection, Normal Range of Motion, No Pedal Edema Neurologic/Psychiatric: Alert, Oriented x3, No Motor/Sensory Deficits, Normal Mood/Affect Skin: Normal Color, Warm/Dry Progress/Results/Core Measures Suspected Sepsis Recent Fever Within 48 Hours: No Infection Criteria Present: None New/Unexplained Altered Menta: No Sepsis Screen: No Definite Risk SIRS Temperature:98.6 Pulse: 86 Respiratory Rate: 18 Blood Pressure 149 /93 Mean: 111 Results/Orders Lab Results Laboratory Tests Test 02/27/18 16:16 Range/Units Urine Color YELLOW Urine Clarity CLEAR Urine pH 5 5-9 Urine Specific [place] 1.020 1.016-1.022 Urine Protein NEGATIVE NEGATIVE Urine Glucose (UA) NEGATIVE NEGATIVE Urine Ketones NEGATIVE NEGATIVE Urine Nitrite NEGATIVE NEGATIVE Urine Bilirubin NEGATIVE NEGATIVE Urine Urobilinogen 4 H NORMAL MG/DL Urine Leukocyte Esterase 2+ H NEGATIVE Urine RBC (Auto) NEGATIVE NEGATIVE Urine RBC NONE /HPF Urine WBC RARE /HPF Urine Squamous Epithelial Cells 2-5 /HPF Urine Crystals NONE /LPF Urine Bacteria NEGATIVE /HPF Urine Casts NONE /LPF Urine Mucus NEGATIVE /LPF Urine Culture Indicated NO Micro Results Microbiology 02/27/18 Influenza Types A,B Antigen (LAVON) - Final, Complete My Orders Orders - EDWARD MG Ua Culture If Indicated (02/27/18 16:27) Influenza A And B Antigens (02/27/18 16:27) Vital Signs/I&O 02/27/18 02/27/18 16:09 17:35 Temp 98.6 98.6 Pulse 86 86 Resp 18 18 B/P (MAP) 149/93 (111) 149/93 (111) Pulse Ox 98 98 O2 Delivery Room Air Capillary Refill : Less Than 3 Seconds Blood Pressure Mean: 111 Progress Note : Time: 16:15 Progress Note Patient seen and initial evaluation completed. Will obtain UA and influenza screen. 1700 UA normal, discussed postnasal drainage and GI symptoms, she was taking Flonase previously and noted improvement. Will resume the Flonase. 1730 influenza negative, discharge instructions and return precautions reviewed. Departure Impression Primary Impression: GERD (gastroesophageal reflux disease) Qualified Codes: K21.9 - Gastro-esophageal reflux disease without esophagitis Disposition: 01 HOME, SELF-CARE Condition: Improved Departure-Patient Inst. Decision time for Depature: 17:20 Referrals: ESTHER SONI DO (PCP/Family) Primary Care Physician Patient Instructions: Acid Reflux (Gastroesophageal Reflux Disease), Adult (DC) Add. Discharge Instructions: Follow up with Dr. Soni in 2-3 days if symptoms are not improving or worsen. Continue to use the Nexium, as prescribed. Use your Xanax every 8 hours as needed. Eat small frequent meals. Use the Flonase as prescribed. Return to emergency department for new, acute health care problems. All discharge instructions reviewed with patient and/or family. Voiced understanding. Scripts Fluticasone Propionate (Flonase Allergy Relief) 9.9 Ml Foster.susp 2 SPRAY NS DAILY, #1 EACH 2 Refills 2 SPRAYS PER NOSTRIL DAILY X 2 DAYS THEN 1 SPRAY DAILY Prov: EDWARD MG 02/27/18 EDWARD MG Feb 27, 2018 16:51
[2018-02-27 17:35] VITALS: BP 149/93
== END 2018-02-27 17:35 | disposition home or self-care (01) ==
LOC: EDUNIT# 16:00 → ER 16:02
DX: K21.9 Gastro-esophageal reflux disease without esophagitis (principal); I25.10 Atherosclerotic heart disease of native coronary artery without angina pectoris; I10 Essential (primary) hypertension; I48.91 Unspecified atrial fibrillation; I42.9 Cardiomyopathy, unspecified; M81.0 Age-related osteoporosis without current pathological fracture; J45.909 Unspecified asthma, uncomplicated; E03.9 Hypothyroidism, unspecified; E11.9 Type 2 diabetes mellitus without complications; F41.9 Anxiety disorder, unspecified; F32.9 Major depressive disorder, single episode, unspecified; D64.9 Anemia, unspecified; G47.30 Sleep apnea, unspecified; Z98.890 Other specified postprocedural states; Z87.448 Personal history of other diseases of urinary system; Z87.19 Personal history of other diseases of the digestive system; Z82.49 Family history of ischemic heart disease and other diseases of the circulatory system; Z88.0 Allergy status to penicillin; Z88.2 Allergy status to sulfonamides; Z79.51 Long term (current) use of inhaled steroids; Z90.89 Acquired absence of other organs; Z90.710 Acquired absence of both cervix and uterus; Z88.1 Allergy status to other antibiotic agents; Z88.8 Allergy status to other drugs, medicaments and biological substances; Z91.048 Other nonmedicinal substance allergy status
CPT/HCPCS: 81000; 87804

== ENCOUNTER 2018-07-20 14:17 | Emergency (ER) | payer MEDICARE, MEDICAID ==
[~2018-07-20] VITALS: Ht 167.6 cm; Wt 73.9 kg
[~2018-07-20 14:17] MED LIST changes: -AMLO5TAB7 PO; +AMLO5TAB9 PO; +FLUT9.9S NS
[2018-07-20 14:50] LABS: BASOPHILS % (AUTO) 0 % (0-10); EOSINOPHILS # (AUTO) 0.2 10^3/uL (0.0-0.3); EOSINOPHILS % (AUTO) 3 % (0-10); HEMATOCRIT 37 % (35-52); HEMOGLOBIN 11.9 G/DL (11.5-16.0); LYMPHOCYTES # (AUTO) 0.4 X 10^3 (1.0-4.0); LYMPHOCYTES % (AUTO) 5 % (12-44); MEAN CORPUSCULAR HEMOGLOBIN 23 PG (25-34); MEAN CORPUSCULAR HGB CONC 32 G/DL (32-36); MEAN CORPUSCULAR VOLUME 73 FL (80-99); MEAN PLATELET VOLUME 10.5 FL (7.4-10.4); MONOCYTES # (AUTO) 0.4 X 10^3 (0.0-1.0); MONOCYTES % (AUTO) 5 % (0-12); NEUTROPHILS # (AUTO) 6.3 X 10^3 (1.8-7.8); NEUTROPHILS % (AUTO) 87 % (42-75); PLATELET COUNT 239 10^3/uL (130-400); RED CELL DISTRIBUTION WIDTH 19.4 % (10.0-14.5); WHITE BLOOD COUNT 7.3 10^3/uL (4.3-11.0)
[2018-07-20 15:06] LABS: BILIRUBIN,TOTAL 0.7 MG/DL (0.1-1.0); CALCIUM 9.3 MG/DL (8.5-10.1); CREATININE SERUM 0.94 MG/DL (0.60-1.30); POTASSIUM 4.7 MMOL/L (3.6-5.0); TOTAL PROTEIN 7.5 GM/DL (6.4-8.2)
[2018-07-20 15:17] LABS: ANISOCYTOSIS SLIGHT; BAND NEUTROPHILS 1 %; BASOPHILS % (MANUAL) 0 %; EOSINOPHILS % (MANUAL) 3 %; LYMPHOCYTES % (MANUAL) 5 %; MICROCYTOSIS SLIGHT; MONOCYTES % (MANUAL) 0 %; NEUTROPHILS % (MANUAL) 91 %
[2018-07-20 15:18] LABS: ELLIPT/OVALOCYTES MODERATE
[2018-07-20] MEDS ORDERED: ONDANSETRON 4 MG/2 ML (SDV) Z0FRAN ONE (15:19)
--- OUTSIDE RECORDS SUMMARY | 2018-07-20 15:25 | XMS REPORT | Clinical Summary ---
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 If you do not see the information that you expected, contact Release of Information in the Health Information Management department at [phone] for further assistance in locating additional records.[facility] Allergies Comments Active Allergy Reactions Severity Noted Date Milo Inhibitors UNKNOWN Low 10/21/2017 Adhesive Tape (Rosins) UNKNOWN Low 10/21/2017 Arb-Angiotensin Receptor UNKNOWN Low 10/21/2017 Antagonist Beta-Blockers UNKNOWN Low 10/21/2017 (Beta-Adrenergic Blocking Agts) Bumetanide UNKNOWN Low 10/21/2017 Erythromycin UNKNOWN Low 12/15/2017 Hydrochlorothiazide STOMACH UPSET Low 10/21/2017 Cephalexin UNKNOWN Low 10/21/2017 Furosemide UNKNOWN Low 10/21/2017 Thick tongue Nitrofurantoin ITCHING, SEE Low 12/15/2017 Macrocrystalline COMMENTS Penicillins UNKNOWN Low 10/21/2017 Seafood UNKNOWN Low 10/21/2017 Shellfish Containing UNKNOWN Low 12/15/2017 Products Sulfa (Sulfonamide UNKNOWN Low 10/21/2017 Antibiotics) Tetracycline UNKNOWN Low 10/21/2017 Azithromycin ITCHING Low 10/21/2017 Medications End Date Status Medication Sig Dispensed Refills Start Date Active amLODIPine (NORVASC) 5 mg Take 5 mg by 0 tablet mouth daily. Active docusate (COLACE) 100 mg Take 100 mg 0 capsule by mouth as Needed for Constipation. Active montelukast (SINGULAIR) Take 10 mg by 0 10 mg tablet mouth daily. Active levothyroxine (SYNTHROID) Take 50 mcg 0 50 mcg tablet by mouth daily 30 minutes before breakfast. Active acetaminophen (TYLENOL) Take 500 mg 0 500 mg tablet by mouth twice daily as needed for Pain. Max of 4,000 mg of acetaminophen in 24 hours. Active ALPRAZolam (XANAX) 0.25 Take 0.25 mg 0 mg tablet by mouth every 8 hours as needed for Anxiety. Active trimethoprim (TRIMPEX) Take 100 mg 0 100 mg tablet by mouth at bedtime daily. Active potassium chloride SR Take 10 mEq 0 (K-DUR) 10 mEq tablet by mouth daily. Take with a meal and a full glass of water. Active cyanocobalamin (VITAMIN Inject 1,000 0 B-12, RUBRAMIN) 1,000 mcg/mL to mcg/mL injection area(s) as directed every 30 days. Active polyethylene glycol 3350 Take 17 g by 0 (GLYCOLAX; MIRALAX) 17 mouth at gram/dose powder bedtime as needed. Active amiodarone (CORDARONE) Take 100 mg 0 200 mg tablet by mouth daily. Take with food. Active temazepam (RESTORIL) 15 Take 15 mg by 0 mg capsule mouth at bedtime as needed for Sleep. Active omeprazole DR(+) Take 40 mg by 0 (PRILOSEC) 40 mg capsule mouth at bedtime daily. Active latanoprost (XALATAN) Apply 1 drop 0 0.005 % ophthalmic to both eyes solution at bedtime daily. Active traMADol (ULTRAM) 50 mg Take one 20 tablet 0 tablet tablet by 8 mouth every 6 hours as needed. Active chlorpheniramine maleate Take 2 mg by 0 (CHLOR-TRIMETON ALLERGY mouth as 12 HOUR PO) Needed. Active Problems Problem Noted Date History of GI bleed 12/20/2017 Acute cystitis without hematuria 12/20/2017 Paroxysmal atrial fibrillation 12/15/2017 Cardiac pacemaker 11/25/2017 Rectal bleeding 10/29/2017 PAF (paroxysmal atrial fibrillation) 10/22/2017 Overview: 02/14/16 ECHO: normal LV size [...] ischemic attack) 10/22/2017 SSS (sick sinus syndrome) 10/22/2017 S/P laparoscopic fundoplication 05/10/2005 Overview: 2/2 GERD Aortic regurgitation Congestive heart failure (CHF) Hypothyroidism IBS (irritable bowel syndrome) Diabetes mellitus GERD (gastroesophageal reflux disease) H/O hemorrhoids Family History Medical History Relation Name Comments Cirrhosis Father Hypertension Father Stroke Father Mental Illness Mother Stroke Mother Relation Name Status Comments Father (Age 79) Mother (Age 64ish) Social History Date Tobacco Use Types Packs/Day Years Used Never Smoker Smokeless Tobacco: Never Used Alcohol Use Drinks/Week oz/Week Comments No Sex Assigned at Date Recorded Not on file Industry Job Start Date Occupation Not on file Not on file Not on file Travel End Travel History Travel Start No recent travel history available. Last Filed Vital Signs Time Taken Vital Sign Reading 01/31/2018 11:34 AM CDT Blood Pressure 112/78 01/31/2018 11:34 AM CDT Pulse 76 12/20/2017 10:48 AM CDT Temperature 36.8 C (98.2 F) - Respiratory Rate - 01/31/2018 11:34 AM CDT Oxygen Saturation 98% - Inhaled Oxygen - Concentration 01/31/2018 11:34 AM CDT Weight 79.2 kg (174 lb 11.2 oz) 01/31/2018 11:34 AM CDT Height 167.6 cm (5' 5.98") 01/31/2018 11:34 AM CDT Body Mass Index 28.21 Plan of Treatment Health Maintenance Due Date Last Done Comments PHYSICAL (COMPREHENSIVE) 01[birth year]02/1942 EXAM DILATED EYE EXAM 1955 DTAP/TDAP VACCINES (1 - 1955 Tdap) FOOT EXAM 1955 HBA1C 1955 SHINGLES RECOMBINANT 1987 VACCINE (1 of 2) OSTEOPOROSIS 2002 SCREENING/MONITORING PNEUMONIA (PCV13/PPSV23) 2002 VACCINES (1 of 2 - PCV13) INFLUENZA VACCINE 12/08/2017 02/14/2016 Implants Device Identifier Shelf Expiration Date Model / Serial / Lot Implanted Type Area Manufactur er Pacemaker Pacemaker 08/08/2020 [id number] / NA / [id number] Atriclip 45mm Pro2 Gena Exclusion Left: Heart ATRICURE System [employer]-Yonas - Sna Implanted: Qty: 1 on 12/16/2017 by Vidal Longo MD Results Not on filefrom Last 3 Months Insurance Payer Benefit Subscriber ID Type Phone Address Plan / Group MEDICARE MEDICARE xxxxxxxxxxx Medicare PART A AND B [facility] MEDICAID [facility] xxxxxxxxxxx Medicaid [employer] [place] Advance Directives Patient has advance care planning documents, and code status on file. For more information, please contact: [facility] [address] [place] [address] Date Inactivated Comments Code Status Date Activated 12/20/2017 3:36 PM Full Code 12/16/2017 8:43 AM Provider has discussed Code Status Yes w/Patient or Family?
--- OUTSIDE RECORDS SUMMARY | 2018-07-20 15:32 | XMS REPORT | Continuity of Care Document ---
Author Author [facility] Organization [facility] Address Unknown Phone Unavailable Allergies Active Description Code Type Severity Reaction Onset Reported/Identified Relationship to Patient Clinical Status Yes cephalexin [id number] Drug Allergy Unknown N/A 07/26/2007 Yes erythromycin base [id number] Drug Allergy Unknown N/A 07/26/2007 Yes furosemide [id number] Drug Allergy Unknown N/A 07/26/2007 Yes Penicillins [id number] Drug Allergy Unknown N/A 07/26/2007 Yes Shellfish [id number] Drug Allergy Unknown N/A 07/26/2007 Yes Sulfa (Sulfonamide Antibiotics) [id number] Drug Allergy Unknown N/A 2007 Yes TAPE TAPE Unknown N/A 07/26/2007 Yes tetracycline [id number] Drug Allergy Unknown N/A 07/26/2007 Yes ciprofloxacin [id number] Drug Allergy Unknown N/A 02/01/2009 Yes azithromycin [id number] Drug Allergy Unknown ITCHING 08/05/2013 Yes nitrofurantoin [id number] Drug Allergy Unknown ITCHING/"THICK 08/05/2013 Medications There [...] ELLIS MD Ot 414.01 CORONARY ATHEROSCLEROSIS OF [place] CORON 01/02/2013 SMITH ELLIS MD Ot 427.31 [...] LEE MD Ot 414.01 CORONARY ATHEROSCLEROSIS OF [place] CORON 04/05/2013 MINDI LEE MD Ot 427.31 [...] Ot V58.61 ANTICOAGULANTS,LT,CURRENT USE 08/05/2013 ZENIA MEDINA [facility] Ot 401.9 HYPERTENSION NOS 08/05/2013 ZENIA MEDINA [facility] Ot 564.00 UNSPEC CONSTIPATION 08/05/2013 ZENIA MEDINA [facility] Ot 787.20 DYSPHAGIA, UNSPECIFIED 08/07/2013 SMITH ELLIS MD Ot 244.9 HYPOTHYROIDISM NOS 08/07/2013 SMITH ELLIS MD Ot 285.9 ANEMIA NOS 08/07/2013 CALEB GARIBAY, SMITH Timmons Ot 401.9 HYPERTENSION NOS 08/07/2013 CALEB GARIBAY, SMITH Timmons Ot 532.90 DUODENAL ULCER NOS 08/07/2013 SMITH ELLIS MD Ot 535.40 OTH SPECIFIED GASTRITIS,W/O MENTION OF H 08/07/2013 SMITH ELLIS MD Ot 578.9 GASTROINTEST HEMORR NOS 06/19/2014 ZENIA MEDINA [facility] Ot 473.9 CHRONIC SINUSITIS NOS 06/19/2014 ZENIA MEDINA [facility] Ot 780.79 OTH MALAISE FATIGUE 06/19/2014 ZENIA MEDINA [facility] Ot 787.02 NAUSEA ALONE 06/19/2014 ZENIA MEDINA [facility] Ot V58.69 OTH MED,LT,CURRENT USE 07/30/2014 HERMANN BUTLER MD Ot 244.0 POSTSURGICAL HYPOTHYROID 07/30/2014 HERMANN BUTLER MD Ot 280.0 CHR BLOOD LOSS ANEMIA 07/30/2014 HERMANN BUTLER MD Ot 300.00 ANXIETY STATE NOS 07/30/2014 HERMANN BUTLER MD Ot 311 DEPRESSIVE DISORDER NEC 07/30/2014 HERMANN BUTLER MD Ot 389.9 HEARING LOSS NOS 07/30/2014 HERMANN BTULER MD Ot 401.9 HYPERTENSION NOS 07/30/2014 HERMANN [...] SYNDROME 03/10/2016 BEBETO HOLLINGSWORTH MD Ot Z79.01 CRAFT SUPERINTENDENT (CURRENT) USE OF ANTICOAGULANT 03/10/2016 BEBETO HOLLINGSWORTH MD Ot Z79.899 OTHER PENITENTIARY (CURRENT) DRUG THERAPY 03/10/2016 BBEETO HOLLINGSWORTH MD Ot Z86.73 PRSNL HX OF [...] SYNDROME 03/27/2016 BEBETO HOLLINGSWORTH MD Ot Z79.01 CRAFT SUPERINTENDENT (CURRENT) USE OF ANTICOAGULANT 03/27/2016 BEBETO HOLLINGSWORTH MD Ot Z79.899 OTHER CRAFT SUPERINTENDENT (CURRENT) DRUG THERAPY 03/27/2016 BEBETO HOLLINGSWORTH MD, [...] SYNDROME 04/09/2016 BEBETO HOLLINGSWORTH MD, Ot Z79.01 PENITENTIARY (CURRENT) USE OF ANTICOAGULANT 04/09/2016 BEBETO HOLLINGSWORTH MD, Ot Z79.899 OTHER CRAFT SUPERINTENDENT (CURRENT) DRUG THERAPY 04/09/2016 BEBETO HOLLINGSWORTH MD, [...] DO, Ot I25.10 ATHSCL HEART DISEASE OF [place] CORONARY 08/12/2016 ESTHER DANIELLE DO, Ot I42.9 [...] PAT 08/12/2016 ESTHER DANIELLE DO Ot Z79.01 CRAFT SUPERINTENDENT (CURRENT) USE OF ANTICOAGULANT 08/12/2016 ESTHER DANIELLE [...] 08/22/2016 ZENIA MEDINA APRN Ot Z79.899 OTHER PENITENTIARY (CURRENT) DRUG THERAPY 08/28/2016 ALAINA IRVING MD [...] MD, Ot I25.10 ATHSCL HEART DISEASE OF [place] CORONARY 08/28/2016 ALAINA IRVING MD Ot I42.9 CARDIOMYOPATHY, UNSPECIFIED 08/28/2016 ALAINA IRVING MD Ot I48.91 UNSPECIFIED ATRIAL FIBRILLATION 08/28/2016 ALAINA IRVING MD Ot K21.9 GASTRO-ESOPHAGEAL REFLUX DISEASE WITHOUT 08/28/2016 ALAINA IRVING MD Ot K62.3 RECTAL PROLAPSE 08/28/2016 ALAINA IRVING MD, Ot K64.2 THIRD DEGREE HEMORRHOIDS 08/28/2016 ALAINA IRVING MD, Ot M81.0 AGE-RELATED OSTEOPOROSIS W/O CURRENT PAT 08/28/2016 ALAINA IRVING MD, Ot Z79.01 CRAFT SUPERINTENDENT (CURRENT) USE OF ANTICOAGULANT 08/31/2016 KITCHENMARK ERYNA ALMA Ot E03.9 HYPOTHYROIDISM, UNSPECIFIED 08/31/2016 KITCHEN [...] ALMA Ot I25.10 ATHSCL HEART DISEASE OF [place] CORONARY 08/31/2016 FIDELINA REYNA ALMA Ot I42.9 CARDIOMYOPATHY, UNSPECIFIED 08/31/2016 KICTHEN DO ALMA Ot I48.91 UNSPECIFIED ATRIAL FIBRILLATION 08/31/2016 FIDELINA REYNA ALMA Ot K21.9 GASTRO-ESOPHAGEAL REFLUX DISEASE WITHOUT 08/31/2016 FIDELINA REYNA ALMA Ot K62.3 RECTAL PROLAPSE 08/31/2016 FIDELINA REYNA ALMA Ot K64.2 THIRD DEGREE HEMORRHOIDS 08/31/2016 FIDELINA REYNA ALMA Ot K64.9 UNSPECIFIED HEMORRHOIDS 08/31/2016 FIDELINA REYNA ALMA Ot M81.0 AGE-RELATED OSTEOPOROSIS W/O CURRENT PAT 08/31/2016 FIDELINA REYNA ALMA Ot Z79.01 PENITENTIARY (CURRENT) USE OF ANTICOAGULANT 09/03/2016 ALAINA IRVING [...] MD, Ot I25.10 ATHSCL HEART DISEASE OF [place] CORONARY 09/03/2016 ALAINA IRVING MD, Ot I42.9 CARDIOMYOPATHY, UNSPECIFIED 09/03/2016 ALAINA IRVING MD, Ot I48.91 UNSPECIFIED ATRIAL FIBRILLATION 09/03/2016 ALAINA IRVING MD, Ot K21.9 GASTRO-ESOPHAGEAL REFLUX DISEASE WITHOUT 09/03/2016 ALAINA IRVING MD, Ot K62.3 RECTAL PROLAPSE 09/03/2016 ALAINA IRVING MD, Ot K64.2 THIRD DEGREE HEMORRHOIDS 09/03/2016 ALAINA IRVING MD, Ot M81.0 AGE-RELATED OSTEOPOROSIS W/O CURRENT PAT 09/03/2016 ALAINA IRVING MD, Ot Z79.01 CRAFT SUPERINTENDENT (CURRENT) USE OF ANTICOAGULANT 09/21/2016 DEVI BERGERON [...] 09/21/2016 DEVI BERGERON MD Ot Z79.899 OTHER PENITENTIARY (CURRENT) DRUG THERAPY 09/22/2016 DEVI BERGERON MD [...] 09/22/2016 DEVI BERGERON MD Ot Z79.899 OTHER CRAFT SUPERINTENDENT (CURRENT) DRUG THERAPY 09/23/2016 DEVI BERGERON MD [...] 09/23/2016 DEVI BERGERON MD Ot Z79.899 OTHER CRAFT SUPERINTENDENT (CURRENT) DRUG THERAPY 10/10/2016 DEVI BERGERON MD [...] 10/10/2016 DEVI BERGERON MD Ot Z79.899 OTHER PENITENTIARY (CURRENT) DRUG THERAPY 11/26/2016 ESTHER DANIELLE DO [...] MD, Ot I25.10 ATHSCL HEART DISEASE OF [place] CORONARY 01/02/2017 ALAINA IRVING MD, Ot I42.9 CARDIOMYOPATHY, UNSPECIFIED 01/02/2017 ALAINA IRVING MD, Ot I48.91 UNSPECIFIED ATRIAL FIBRILLATION 01/02/2017 ALAINA IRVING MD, Ot K21.9 GASTRO-ESOPHAGEAL REFLUX DISEASE WITHOUT 01/02/2017 ALAINA IRVING MD, Ot K62.3 RECTAL PROLAPSE 01/02/2017 ALAINA IRVING MD, Ot K64.2 THIRD DEGREE HEMORRHOIDS 01/02/2017 ALAINA IRVING MD, Ot M81.0 AGE-RELATED OSTEOPOROSIS W/O CURRENT PAT 01/02/2017 ALAINA IRVING MD, Ot Z79.01 PENITENTIARY (CURRENT) USE OF ANTICOAGULANT 01/29/2017 MIRACLE HICKMAN [...] DO Ot I25.10 ATHSCL HEART DISEASE OF [place] CORONARY 01/29/2017 MIRACLE HICKMAN DO Ot I42.9 [...] M Ot I25.10 ATHSCL HEART DISEASE OF [place] CORONARY 06/28/2017 CALEB GARIBAY, SMITH M Ot I48.91 UNSPECIFIED ATRIAL FIBRILLATION 06/28/2017 CALEB GARIBAY, SMITH M Ot K29.70 GASTRITIS, UNSPECIFIED, WITHOUT BLEEDING 06/28/2017 CALEB GARIBAY, SMITH M Ot R13.10 DYSPHAGIA, UNSPECIFIED 06/28/2017 CALEB GARIBAY, SMITH M Ot Z79.899 OTHER CRAFT SUPERINTENDENT (CURRENT) DRUG THERAPY 06/28/2017 SMITH ELLIS MD [...] Timmons Ot I25.10 ATHSCL HEART DISEASE OF [place] CORONARY 06/29/2017 CALEB GARIBAY, SMITH Timmons Ot I48.91 UNSPECIFIED ATRIAL FIBRILLATION 06/29/2017 CALEB GARIBAY, SMITH Timmons Ot K29.70 GASTRITIS, UNSPECIFIED, WITHOUT BLEEDING 06/29/2017 CALEB GARIBAY, SMITH M Ot R13.10 DYSPHAGIA, UNSPECIFIED 06/29/2017 CALEB GARIBAY, SMITH M Ot Z79.899 OTHER CRAFT SUPERINTENDENT (CURRENT) DRUG THERAPY 06/29/2017 SMITH ELLIS MD [...] H91.90 UNSPECIFIED HEARING LOSS, UNSPECIFIED EA 06/30/2017 LAAINA IRVING MD, Ot I25.10 ATHSCL HEART DISEASE OF [place] CORONARY 06/30/2017 ALAINA IRVING MD Ot I42.9 CARDIOMYOPATHY, UNSPECIFIED 06/30/2017 ALAINA IRVING MD, Ot I48.91 UNSPECIFIED ATRIAL FIBRILLATION 06/30/2017 ALAINA IRVING MD, Ot K21.9 GASTRO-ESOPHAGEAL REFLUX DISEASE WITHOUT 06/30/2017 ALAINA IRVING MD, Ot K62.3 RECTAL PROLAPSE 06/30/2017 ALAINA IRVING MD, Ot K64.2 THIRD DEGREE HEMORRHOIDS 06/30/2017 ALAINA IRVING MD, Ot M81.0 AGE-RELATED OSTEOPOROSIS W/O CURRENT PAT 06/30/2017 ALAINA IRVING MD, Ot Z79.01 CRAFT SUPERINTENDENT (CURRENT) USE OF ANTICOAGULANT 11/22/2017 Ot 477.9 [...] SYNDROME 11/22/2017 BEBETO HOLLINGSWORTH MD, Ot Z79.01 PENITENTIARY (CURRENT) USE OF ANTICOAGULANT 11/22/2017 BEBETO HOLLINGSWORTH MD, Ot Z79.899 OTHER CRAFT SUPERINTENDENT (CURRENT) DRUG THERAPY 11/22/2017 BEBETO HOLLINGSWORTH MD, Ot Z86.73 PRSNL HX OF TIA (TIA), AND CEREB INFRC W 11/22/2017 ESTHER DANIELEL DO Ot M25.512 PAIN IN LEFT SHOULDER 11/23/2017 RUBY WYNN Ot E03.9 HYPOTHYROIDISM, UNSPECIFIED 11/23/2017 RUBY WYNN Ot E11.9 TYPE 2 DIABETES MELLITUS WITHOUT COMPLIC 11/23/2017 RUBY WYNN Ot F32.9 MAJOR DEPRESSIVE DISORDER, SINGLE EPISOD 11/23/2017 RUBY WYNN Ot F41.9 ANXIETY DISORDER, UNSPECIFIED 11/23/2017 RUBY WYNN Ot I10 ESSENTIAL (PRIMARY) HYPERTENSION 11/23/2017 RUBY WYNN Ot I25.10 ATHSCL HEART DISEASE OF [place] CORONARY 11/23/2017 RUBY WYNN Ot I48.91 UNSPECIFIED [...] SYNDROME 11/23/2017 BEBETO HOLLINGSWORTH MD Ot Z79.01 PENITENTIARY (CURRENT) USE OF ANTICOAGULANT 11/23/2017 BEBETO HOLLINGSWORTH MD Ot Z79.899 OTHER PENITENTIARY (CURRENT) DRUG THERAPY 11/23/2017 BEBETO HOLLINGSWORTH MD, Ot Z86.73 PRSNL HX OF TIA (TIA), AND CEREB INFRC W 11/23/2017 ESTHER DANIELLE DO Ot M25.512 PAIN IN LEFT SHOULDER 11/25/2017 ESTHER DANIELLE DO, Ot Z51.81 ENCOUNTER FOR THERAPEUTIC DRUG LEVEL MON 11/25/2017 ESTHER DANIELLE DO, Ot Z79.899 OTHER CRAFT SUPERINTENDENT (CURRENT) DRUG THERAPY 11/26/2017 Iain GRANT MD, Ot E78.5 HYPERLIPIDEMIA, UNSPECIFIED 11/26/2017 Iain GRANT MD Ot I10 ESSENTIAL (PRIMARY) HYPERTENSION 11/26/2017 Iain GRANT MD Ot I48.0 PAROXYSMAL ATRIAL FIBRILLATION 11/26/2017 Iain GRANT MD Ot I49.5 SICK SINUS SYNDROME 11/26/2017 Iain GRANT MD, Ot Z79.899 OTHER PENITENTIARY (CURRENT) DRUG THERAPY 11/26/2017 Iain GRANT MD, Ot Z86.73 PRSNL HX OF TIA (TIA), AND CEREB INFRC W 11/30/2017 Iain GRANT MD Ot E78.5 HYPERLIPIDEMIA, UNSPECIFIED 11/30/2017 Iain GRANT MD Ot I10 ESSENTIAL (PRIMARY) HYPERTENSION 11/30/2017 Iain GRANT MD Ot I48.0 PAROXYSMAL ATRIAL FIBRILLATION 11/30/2017 Iain GRANT MD Ot I49.5 SICK SINUS SYNDROME 11/30/2017 Iain GRANT MD Ot Z79.899 OTHER CRAFT SUPERINTENDENT (CURRENT) DRUG THERAPY 11/30/2017 Iain GRANT MD Ot Z86.73 PRSNL HX OF TIA (TIA), AND CEREB INFRC W 12/04/2017 DEVI BERGERON MD Ot D64.9 ANEMIA, UNSPECIFIED 12/04/2017 DEVI BERGREON MD Ot E03.9 HYPOTHYROIDISM, UNSPECIFIED 12/04/2017 DEVI [...] MD Ot I25.10 ATHSCL HEART DISEASE OF [place] CORONARY 12/04/2017 DEVI BERGERON MD Ot I48.91 [...] BERGERON MD Ot E03.9 HYPOTHYROIDISM, UNSPECIFIED 12/06/2017 DEVI BERGERON MD Ot E11.9 TYPE 2 [...] MD Ot I25.10 ATHSCL HEART DISEASE OF [place] CORONARY 12/06/2017 DEVI BERGERON MD Ot I48.91 [...] ALLERGY STATUS TO OTHER ANTIBIOTIC AGENT 12/06/2017 DEVI BERGERON MD, Ot Z88.2 ALLERGY STATUS [...] INFECT/ INFLM REACT D/T OTH CARDI/VASC DE 02/27/2018 SAURAVEDWARD ValentinP Ot D64.9 ANEMIA, UNSPECIFIED 02/27/2018 SAURAVEDWARD ValentinP Ot E03.9 HYPOTHYROIDISM, UNSPECIFIED 02/27/2018 SAURAV, EDWARD ACADEMIC HOSPITALIST Ot E11.9 TYPE 2 DIABETES MELLITUS WITHOUT COMPLIC 02/27/2018 SAURAVEDWARD ValentinP Ot F32.9 MAJOR DEPRESSIVE DISORDER, SINGLE EPISOD 02/27/2018 SAURAV, EDWARD ACADEMIC HOSPITALIST Ot F41.9 ANXIETY DISORDER, UNSPECIFIED 02/27/2018 SAURAV, EDWARD ACADEMIC HOSPITALIST Ot G47.30 SLEEP APNEA, UNSPECIFIED 02/27/2018 SAURAV EDWARD ACADEMIC HOSPITALIST Ot I10 ESSENTIAL (PRIMARY) HYPERTENSION 02/27/2018 EDWARD MG ACADEMIC HOSPITALIST Ot I25.10 ATHSCL HEART DISEASE OF [place] CORONARY 02/27/2018 SAURAV EDWARD ACADEMIC HOSPITALIST Ot I42.9 CARDIOMYOPATHY, UNSPECIFIED 02/27/2018 EDWARD MG ACADEMIC HOSPITALIST Ot I48.91 UNSPECIFIED ATRIAL FIBRILLATION 02/27/2018 SAURAV EDWARD ACADEMIC HOSPITALIST Ot J45.909 UNSPECIFIED ASTHMA, UNCOMPLICATED 02/27/2018 SAURAV EDWARD ACADEMIC HOSPITALIST Ot K21.9 GASTRO-ESOPHAGEAL REFLUX DISEASE WITHOUT 02/27/2018 EDWARD MG ACADEMIC HOSPITALIST Ot M81.0 AGE-RELATED OSTEOPOROSIS W/O CURRENT PAT 02/27/2018 EDWARD MG ACADEMIC HOSPITALIST Ot R53.83 OTHER FATIGUE 02/27/2018 EDWARD MG ACADEMIC HOSPITALIST Ot Z79.51 PENITENTIARY (CURRENT) USE OF INHALED STERO 02/27/2018 EDWARD MG ACADEMIC HOSPITALIST Ot Z82.49 FAMILY HX OF ISCHEM HEART DIS AND OTH DI 02/27/2018 EDWARD MG ACADEMIC HOSPITALIST Ot Z87.19 PERSONAL HISTORY OF OTHER DISEASES OF TH 02/27/2018 EDWARD MGP Ot Z87.448 PERSONAL HISTORY OF OTHER DISEASES OF UR 02/27/2018 EDWARD MG ACADEMIC HOSPITALIST Ot Z88.0 ALLERGY STATUS TO PENICILLIN 02/27/2018 SAURAV EDWARD ACADEMIC HOSPITALIST Ot Z88.1 ALLERGY STATUS TO OTHER ANTIBIOTIC AGENT 02/27/2018 EDWARD MG ACADEMIC HOSPITALIST Ot Z88.2 ALLERGY STATUS TO SULFONAMIDES STATUS 02/27/2018 EDWARD MG ACADEMIC HOSPITALIST Ot Z88.8 ALLERGY STATUS TO OTH DRUG/MEDS/BIOL SUB 02/27/2018 SAURAVEDWARD Valentin ACADEMIC HOSPITALIST Ot Z90.710 ACQUIRED ABSENCE OF BOTH CERVIX AND UTER 02/27/2018 SAURAVEDWARD Valentin ACADEMIC HOSPITALIST Ot Z90.89 ACQUIRED ABSENCE OF OTHER ORGANS 02/27/2018 SAURAVEDWARD Valentin ACADEMIC HOSPITALIST Ot Z91.048 OTHER NONMEDICINAL SUBSTANCE ALLERGY STA 02/27/2018 SAURAVEDWARD Valentin ACADEMIC HOSPITALIST Ot Z98.890 OTHER SPECIFIED POSTPROCEDURAL STATES 03/05/2018 SAURAVEDWARD Valentin ACADEMIC HOSPITALIST Ot D64.9 ANEMIA, UNSPECIFIED 03/05/2018 SAURAV, EDWARD ACADEMIC HOSPITALIST Ot E03.9 HYPOTHYROIDISM, UNSPECIFIED 03/05/2018 SAURAV, EDWARD ACADEMIC HOSPITALIST Ot E11.9 TYPE 2 DIABETES MELLITUS WITHOUT COMPLIC 03/05/2018 SAURAV EDWARD ACADEM[facility] HOSPITALIST Ot F32.9 MAJOR DEPRESSIVE DISORDER, SINGLE EPISOD 03/05/2018 SAURAV EDWARD [facility]AD[facility] HOSPITALIST Ot F41.9 ANXIETY DISORDER, UNSPECIFIED 03/05/2018 SAURAV, EDWARD ACADEMIC HOSPITALIST Ot G47.30 SLEEP APNEA, UNSPECIFIED 03/05/2018 SAURAV, EDWARD ACADEMIC HOSPITALIST Ot I10 ESSENTIAL (PRIMARY) HYPERTENSION 03/05/2018 SAURAV, EDWARD ACADEMIC HOSPITALIST Ot I25.10 ATHSCL HEART DISEASE OF [place] CORONARY 03/05/2018 SAURAV EDWARD ACADEMIC HOSPITALIST Ot I42.9 CARDIOMYOPATHY, UNSPECIFIED 03/05/2018 SAURAV, EDWARD ACADEMIC HOSPITALIST Ot I48.91 UNSPECIFIED ATRIAL FIBRILLATION 03/05/2018 EDWARD MG ACADEMIC HOSPITALIST Ot J45.909 UNSPECIFIED ASTHMA, UNCOMPLICATED 03/05/2018 EDWARD MG ACADEMIC HOSPITALIST Ot K21.9 GASTRO-ESOPHAGEAL REFLUX DISEASE WITHOUT 03/05/2018 SAURAV, EDWARD ACADEMIC HOSPITALIST Ot M81.0 AGE-RELATED OSTEOPOROSIS W/O CURRENT PAT 03/05/2018 SAURAV, EDWARD ACADEMIC HOSPITALIST Ot R53.83 OTHER FATIGUE 03/05/2018 EDWARD MG ACADEMIC HOSPITALIST Ot Z79.51 CRAFT SUPERINTENDENT (CURRENT) USE OF INHALED STERO 03/05/2018 EDWARD MG ACADEMIC HOSPITALIST Ot Z82.49 FAMILY HX OF ISCHEM HEART DIS AND OTH DI 03/05/2018 EDWARD MG ACADEMIC HOSPITALIST Ot Z87.19 PERSONAL HISTORY OF OTHER DISEASES OF TH 03/05/2018 EDWARD MG ACADEMIC HOSPITALIST Ot Z87.448 PERSONAL HISTORY OF OTHER DISEASES OF UR 03/05/2018 EDWARD MGP Ot Z88.0 ALLERGY STATUS TO PENICILLIN 03/05/2018 EDWARD MGP Ot Z88.1 ALLERGY STATUS TO OTHER ANTIBIOTIC AGENT 03/05/2018 EDWARD MGP Ot Z88.2 ALLERGY STATUS TO SULFONAMIDES STATUS 03/05/2018 EDWARD MGP Ot Z88.8 ALLERGY STATUS TO OTH DRUG/MEDS/BIOL SUB 03/05/2018 EDAWRD MGP Ot Z90.710 ACQUIRED ABSENCE OF BOTH CERVIX AND UTER 03/05/2018 EDWARD MGP Ot Z90.89 ACQUIRED ABSENCE OF OTHER ORGANS 03/05/2018 EDWARD MGP Ot Z91.048 OTHER NONMEDICINAL SUBSTANCE ALLERGY STA 03/05/2018 EDWARD MGP Ot Z98.890 OTHER SPECIFIED POSTPROCEDURAL STATES Procedures Code Description Performed By Performed On 45.13 OTHER ENDOSCOPY OF INTEST 04/04/2013 44.43 ENDOSCOPIC CONTROL OF GASTRIC OR DUODENA 07/29/2014 [id number] EXCISION OF ESOPHAGOGASTRIC JUNCTION, EN 08/11/2016 [id number] EXCISION OF STOMACH, PYLORUS, ENDO, DIAG 08/11/2016 [id number] INSPECTION OF LOWER INTESTINAL TRACT, EN 08/11/2016 [...] panel - 08/09/16 22:12 ABO+Rh group OP [facility] Transfusion band number [id number] [facility] Blood group antibody screen NEGATIVE [facility] Methicillin resistant Staphylococcus aureus (MRSA) screening culture - 23:00 Methicillin resistant Staphylococcus aureus (MRSA) screening culture NEG [facility] Whole blood hemoglobin and hematocrit panel [...] ABO+Rh group OP [facility] Transfusion band number [id number] Blood group antibody screen NEGATIVE [facility] [...] Staphylococcus aureus (MRSA) screening culture NEG [facility] Automated blood complete blood count (hemogram) panel [...] protein measurement (mass/volume) 0.40 mg /dL 0.00-0.50 Complete urinalysis with reflex to culture - 02/27/18 16:16 Urine color determination YELLOW [facility] Urine clarity determination CLEAR [facility] Urine pH measurement by test strip 5 5-9 Specific gravity of urine by test strip 1.020 1.016- 1.022 Urine protein assay by test strip, semi-quantitative NEGATIVE NEGATIVE Urine glucose detection by automated test strip NEGATIVE NEGATIVE Erythrocytes detection in urine sediment by light microscopy NEGATIVE NEGATIVE Urine ketones detection by automated test strip NEGATIVE NEGATIVE Urine nitrite detection by test strip NEGATIVE NEGATIVE Urine total bilirubin detection by test strip NEGATIVE NEGATIVE Urine urobilinogen measurement by automated test strip (mass/volume) 4 mg/dL NORMAL Urine leukocyte esterase detection by dipstick 2+ NEGATIVE Automated urine sediment erythrocyte count by [...] urinalysis with reflex to culture NO NR[facility] Influenza virus A and B antigen detection - 02/27/18 16:16 FLU RESULT NEGATIVE FOR INFLUENZA A AND B ANTIGENS BY IA NRG Complete blood count (CBC) with automated white blood cell (WBC) differential - 07/20/18 14:29 Blood leukocytes automated count (number/volume) 7.3 10*3/uL 4.3-11.0 Blood erythrocytes automated count (number/volume) 5.14 10*6/uL 4.35-5.85 Venous blood hemoglobin measurement (mass/volume) 11.9 g/dL 11.5-16.0 Blood hematocrit (volume fraction) 37 % 35-52 Automated erythrocyte mean corpuscular volume 73 [foz_us] 80-99 Automated erythrocyte mean corpuscular hemoglobin (mass per erythrocyte) 23 pg 25-34 Automated erythrocyte mean corpuscular hemoglobin concentration measurement ( mass/volume) 32 g/dL 32-36 Automated erythrocyte distribution width ratio 19.4 % 10.0-14.5 Automated blood platelet count (count/volume) 239 10*3/uL 130-400 Automated blood platelet mean volume measurement 10.5 [foz_us] 7.4-10.4 Automated blood neutrophils/100 leukocytes 87 % 42-75 Automated blood lymphocytes/100 leukocytes 5 % 12-44 Blood monocytes/100 leukocytes 5 % 0-12 Automated blood eosinophils/100 leukocytes 3 % 0-10 Automated blood basophils/100 leukocytes 0 % 0-10 Blood neutrophils automated count (number/volume) 6.3 10*3 1.8-7.8 Blood lymphocytes automated count (number/volume) 0.4 10*3 1.0-4.0 Blood monocytes automated count (number/volume) 0.4 10*3 0.0-1.0 Automated eosinophil count 0.2 10*3/uL 0.0-0.3 Automated blood basophil count (count/volume) 0.0 10*3/uL 0.0-0.1 Encounters ACCT No. Visit Date/Time Discharge Status Pt. Type Provider Facility Loc./Unit Complaint [id number] 02/27/2018 16:02:00 02/27/2018 17:35:00 DIS Emergency SAURAV, EDWARD ACADEMIC HOSPITALIST [facility] ER STOMACH ISSUES,CONGESTION [id number] 12/07/2017 12:15:00 12/07/2017 23:59:59 CLS Outpatient ESTHER DANIELLE DO [facility] RT DYSPNEA [id number] 12/04/2017 08:57:00 12/04/2017 12:01:00 DIS Emergency DEVI BERGERON MD [facility] ER LUMP BY PACE MAKER [id number] 11/25/2017 08:05:00 11/26/2017 11:20:00 DIS Outpatient Iain GRANT MD [facility] CATH SYMPTOMATIC SINUS NODE DYSFUCTION,AFIB [id number] 11/24/2017 11:40:00 11/24/2017 23:59:59 CLS Outpatient ESTHER DANIELLE DO [facility] RT AMIODARONE NEUROPY, MEDICATION MONITORING [id number] 11/23/2017 14:42:00 11/23/2017 17:09:00 DIS Emergency RUBY WYNN [facility] ER CONSTIPATION/FEVER [id number] 06/28/2017 07:34:00 06/28/2017 11:05:00 DIS Outpatient SMITH ELLIS MD [facility] ENDO GERD [id number] 06/24/2017 09:19:00 06/24/2017 10:29:00 DIS Outpatient SMITH ELLIS MD [facility] PREOP EGD [id number] 01/29/2017 20:55:00 01/29/2017 23:23:00 DIS Emergency MIRACLE HICKMAN DO [facility] ER R HAND THUMB PAIN [id number] 11/02/2016 12:08:00 11/02/2016 23:59:59 CLS Outpatient ESTHER DANIELLE DO [facility] RAD L SHOULDER PAIN [id number] 09/21/2016 18:41:00 09/21/2016 19:47:00 DIS Emergency RUBIO GARIBAY, DEVI Haas [facility] ER CHOKING [id number] 08/28/2016 12:32:00 08/31/2016 13:35:00 DIS Inpatient ALMA KITCHEN DO [facility] 4TH SWB-ANEMIA [id number] 08/26/2016 19:35:00 08/28/2016 12:31:00 DIS Outpatient ALAINA IRVING MD [facility] SDC LOWER GI BLEED, HEMORRHOIDS [id number] 08/22/2016 21:40:00 08/22/2016 23:26:00 DIS Emergency ZENIA MEDINA APRN [facility] ER RECTAL BLEEDING [id number] 08/09/2016 22:05:00 08/12/2016 14:30:00 DIS Inpatient ESTHER DANIELLE DO [facility] 4TH LOWER GIB, ABD PX, H/ O GASTRIK ULCERS [id number] 03/04/2016 10:45:00 03/04/2016 23:59:59 CLS Outpatient BEBETO HOLLINGSWORTH MD [facility] CATH AR,HTN,FATIGUE,PAF,SSS, DIZZINESS [id number] 02/13/2016 21:59:00 02/15/2016 13:48:00 DIS Inpatient ESTHER DANIELLE DO [facility] ICU TIA;UNCONTROLLED HTN; INTERMITTENT A.FIB [id number] 01/12/2016 22:44:00 01/13/2016 00:02:00 DIS Emergency SAMIRA ELLIOTT MD [facility] ER ABD PAIN/N/V [id number] 05/19/2015 09:06:00 05/19/2015 12:33:00 DIS Emergency JANIE GARIBAY, CARLINE Kennedy [facility] ER ELEVATED BP, DIARRHEA [id number] 10/31/2014 14:02:00 10/31/2014 23:59:59 CLS Outpatient ESTHER DANIELLE DO [facility] RAD CHEST PAIN [id number] 10/03/2014 11:39:00 10/03/2014 18:05:00 DIS Outpatient SMITH ELLIS MD [facility] SDC STRICTURE; ABNORMAL CT [id number] 09/27/2014 06:02:00 09/27/2014 23:59:59 CLS Outpatient SMITH ELLIS MD [facility] PREOP STRICTURE; ABNORMAL CT [id number] 08/23/2014 14:18:00 08/23/2014 23:59:59 CLS Outpatient ESTHER DANIELLE DO [facility] RAD CONSTIPATION,ABD PAIN [id number] 08/18/2014 10:00:00 08/20/2014 11:15:00 DIS Inpatient ALAINA IRVING MD [facility] SURGICAL PARTIAL BOWEL OBSTRUCTIN,UTI,RECENT GI BLEED [id number] 07/29/2014 02:11:00 07/30/2014 16:30:00 DIS Inpatient HERMANN BUTLER MD [facility] SURGICAL GI BLEED [id number] 06/19/2014 12:06:00 06/19/2014 14:07:00 DIS Emergency ZENIA MEDINA APRN [facility] ER NAUSEATED FEELS LIKE HEART IS RACING [id number] 08/07/2013 06:45:00 08/07/2013 10:20:00 DIS Outpatient SMITH ELLIS MD [facility] SDC GI BLEED [id number] 08/05/2013 09:17:00 08/05/2013 12:06:00 DIS Emergency ZENIA MEDINA [facility] ER ELEVATED BP,NAUSEA [id number] 08/03/2013 07:27:00 08/03/2013 23:59:59 CLS Outpatient SMITH ELLIS MD [facility] PREOP GI BLEED [id number] 04/02/2013 10:19:00 04/05/2013 13:00:00 DIS Inpatient MINDI LEE MD [facility] SURGICAL GI BLEED [id number] 12/31/2012 13:04:00 01/02/2013 10:45:00 DIS Inpatient SMITH ELLIS MD [facility] SURGICAL BOWEL OBSTRUCTION [id number] 11/06/2012 15:55:00 11/07/2012 12:00:00 DIS Inpatient LORIE GARIBAY FACC, KISHAN CASILLAS CCDS [facility] CSD A FIB [id number] 07/20/2018 14:53:00 Document Registration [id number] 12/13/2017 09:11:00 Document Registration [id number] 08/12/2012 09:32:00 Document Registration [id number] 07/26/2012 08:35:00 Document Registration [id number] 07/03/2012 18:35:00 Document Registration [id number] 03/05/2012 03:50:00 Document Registration [id number] 01/27/2012 05:36:00 Document Registration [id number] 01/18/2012 07:30:00 Document Registration [id number] 12/28/2011 11:50:00 Document Registration [id number] 12/25/2011 08:22:00 Document Registration [id number] 12/23/2011 08:05:00 Document Registration [id number] 10/22/2011 07:43:00 Document Registration [id number] 09/09/2011 22:17:00 Document Registration [id number] 02/03/2011 13:43:00 Document Registration [id number] 01/15/2011 09:33:00 Document Registration [id number] 08/11/2010 16:30:00 Document Registration [id number] 02/14/2018 10:00:58 Document Registration
--- NOTE | 2018-07-20 15:42 | Diagnostic Imaging Report ---
INDICATION: Nausea and vomiting. Cough. TIME OF EXAMINATION: 2:54 PM. COMPARISON: 11/23/2017. FINDINGS: No definite free air is identified. The bowel gas pattern appears nonobstructive. There is moderate stool throughout the colon, consistent with constipation. No pathologic calcifications are seen. IMPRESSION: Moderate stool is suggestive of constipation. No other significant abnormality is seen. Dictated by: Dictated on workstation # [id number]
--- NOTE | 2018-07-20 15:47 | ED Abdominal Pain ---
General Chief Complaint: Abdominal/GI Problems Stated Complaint: N/V;FEVER Nursing Triage Note: PT REPORTS FEELING FINE THIS AM AND EATING BREAKFAST WITHOUT ANY PROBLEMS. LATER IN THE DAY PT BECAME NAUSEATED AND RUNNING A FEVER 101.2. PT ALSO REPORTS STOMACH PAIN THAT IS A DULL ACHE. Sepsis Screen: No Definite Risk Source of Information: Patient Exam Limitations: No Limitations History of Present Illness Date Seen by Provider: Jul 20, 2018 Time Seen by Provider: 14:22 Initial Comments This 83-year-old woman presents to the emergency room with complaints of fever and a dull generalized abdominal pain. Symptoms started today. She has nausea without vomiting but she does seem to be dry heaving in the exam room. Last bowel movement was yesterday and was normal. She denies constipation or diarrhea. She reports her neighbor had influenza and she was exposed. She has had minimal cough. She took Tylenol and Zofran around 10:00 for her symptoms. Patient has history of atrial fibrillation but is not anticoagulated do to history of bleeding problems. She does have an atrial clip. She also also has a fundoplication and a pacemaker. Allergies and Home Medications Allergies Coded Allergies: levofloxacin (Unverified Allergy, Mild, RASH, 07/20/18) Penicillins (Verified Allergy, Unknown, 07/20/18) Shellfish (Verified Allergy, Unknown, 07/20/18) Sulfa (Sulfonamide Antibiotics) (Verified Allergy, Unknown, 07/20/18) azithromycin (Unverified Allergy, Unknown, ITCHING, 07/20/18) cephalexin (Verified Allergy, Unknown, 07/20/18) erythromycin base (Verified Allergy, Unknown, 07/20/18) furosemide (Verified Allergy, Unknown, 07/20/18) nitrofurantoin (Unverified Allergy, Unknown, ITCHING/"THICK TONGUE", ) tetracycline (Verified Allergy, Unknown, 07/20/18) Uncoded Allergies: TAPE (Allergy, Unknown, 07/26/07) Home Medications Acetaminophen 500 Mg Tablet, 500 MG PO BID PRN for PAIN-MILD, (Reported) Alprazolam 0.25 Mg Tablet, 0.25 MG PO Q8H PRN for ANXIETY, (Reported) Amiodarone HCl 200 Mg Tablet, 100 MG PO DAILY, (Reported) TAKES 1/2 (200MG) TABLET Amlodipine Besylate 5 Mg Tablet, 5 MG PO DAILY, (Reported) Clindamycin HCl 300 Mg Capsule, 300 MG PO TID Prescribed by: MIGUEL ÁNGEL DANIEL on 11/26/17 1001 Clindamycin HCl 300 Mg Capsule, 300 MG PO QID Prescribed by: DEVI KO on 12/04/17 1151 Cyanocobalamin 1,000 Mcg/Ml Inj, 1,000 MCG INJ MONTHLY, (Reported) Docusate Sodium 100 Mg Capsule, 100 MG PO DAILY PRN for CONSTIPATION-1ST LINE, ( Reported) Fexofenadine HCl 180 Mg Tablet, 180 MG PO DAILY PRN for ALLERGIES, (Reported) Fluticasone Propionate 9.9 Ml [place].susp, 2 SPRAY NS DAILY 2 SPRAYS PER NOSTRIL DAILY X 2 DAYS THEN 1 SPRAY DAILY Prescribed by: EDWARD MG on 02/27/18 1650 Irbesartan 300 Mg Tablet, 300 MG PO DAILY, (Reported) Latanoprost 2.5 Ml Drops, 1 DROP OU HS, (Reported) Levothyroxine Sodium 50 Mcg Tablet, 50 MCG PO DAILY, (Reported) Loratadine 10 Mg Tablet, 10 MG PO DAILY Prescribed by: DEVI KO on 12/04/17 1152 Montelukast Sodium 10 Mg Tablet, 10 MG PO DAILY, (Reported) Omeprazole 40 Mg Capsule.dr, 40 MG PO HS, (Reported) Ondansetron 4 Mg Tab.rapdis, 4 MG SL Q4H PRN for NAUSEA/VOMITING Prescribed by: DEVI KO on 07/20/18 1830 Polyethylene Glycol 3350 17 Gm Powd.pack, 17 GM PO HS, (Reported) Potassium Chloride 10 Meq Tab.er.prt, 10 MEQ PO DAILY, (Reported) Temazepam 15 Mg Capsule, 15 MG PO HS PRN for INSOMNIA, (Reported) Trimethoprim 100 Mg Tablet, 100 MG PO HS, (Reported) Patient Home Medication List Home Medication List Reviewed: Yes Review of Systems Review of Systems Constitutional: no symptoms reported EENTM: No Symptoms Reported Respiratory: See HPI Cardiovascular: See HPI Gastrointestinal: See HPI Genitourinary: No Symptoms Reported Musculoskeletal: no symptoms reported Skin: no symptoms reported Psychiatric/Neurological: No Symptoms Reported Endocrine: No Symptoms Reported Hematologic/Lymphatic: No Symptoms Reported Past Itgeawe-Sqdsbf-Czktlz Hx Patient Social History Alcohol Use: Denies Use Recreational Drug Use: No Smoking Status: Never a Smoker 2nd Hand Smoke Exposure: No Recent Foreign Travel: No Contact w/Someone Who Travel: No Recent Infectious Disease Expo: No Recent Hopitalizations: No Immunizations Up To Date Tetanus Booster (TDap): Less than 5yrs PED Vaccines UTD: No Date of Pneumonia Vaccine: October 03, 2016 Date of Influenza Vaccine: Feb 08, 2012 Seasonal Allergies Seasonal Allergies: Yes Past Medical History Surgeries: Yes (LAP NIESSEN) Abdominal, Appendectomy, Cardiac (Atrial clip), Gallbladder, Hysterectomy, Pacemaker, Rectal, Thyroidectomy, Tonsillectomy Respiratory: Yes Asthma, Sleep Apnea Currently Using CPAP: Yes Currently Using BIPAP: No Cardiac: Yes (SINUS NODE DYSFUNCTION) Atrial Fibrillation, Cardiomyopathy, Chronic Edema/Swelling, Coronary Artery Disease, Hypertension Neurological: No 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 Disorders: No 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 Genitourinary: Yes Bladder Infection Gastrointestinal: Yes Gastrointestinal Bleed, Hemorrhoids, Irritable Bowel Musculoskeletal: Yes (OSTEOARTHRITIS, FX RIGHT LOWER LEG, DISLOCATED RIGHT SHOULDER) Osteoporosis, Arthritis, Fractures Endocrine: Yes (THYROIDECTOMY; DIET CONTROLLED DIABETES) Hypothyroidsim, Diabetes, Non-Insulin dep HEENT: Yes Glaucoma Hearing Impairment: Hard of Hearing Cancer: No Psychosocial: Yes Anxiety, Depression Integumentary: No Blood Disorders: Yes (ANEMIA) Adverse Reaction/Blood Tranf: No Family Medical History Family history: Hypertension 03 FATHER, Onset:40's - 50 09 BROTHER, Onset:40's - 50 History of drug abuse 03 FATHER, Onset:20's - 25 Stroke 03 FATHER, Onset:60 years & older No Pertinent Family Hx Physical Exam Vital Signs Vital Signs - First Documented 07/20/18 14:22 Temp 99.8 Pulse 84 Resp 16 B/P (MAP) 149/82 (104) Pulse Ox 98 Capillary Refill : Less Than 3 Seconds Height/Weight/BMI Height: 5'6.00" Weight: 163lbs. 0.0oz. 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 nml as tested, no motor/sensory deficits, alert, normal mood/affect, oriented x 3 Skin: normal color, warm/dry Progress/Results/Core Measures Results/Orders Lab Results Laboratory Tests Test 07/20/18 14:29 07/20/18 16:05 Range/Units White Blood Count 7.3 4.3-11.0 10^3/uL Red Blood Count 5.14 4.35-5.85 10^6/uL Hemoglobin 11.9 11.5-16.0 G/DL Hematocrit 37 35-52 % Mean Corpuscular Volume 73 L 80-99 FL Mean Corpuscular Hemoglobin 23 L 25-34 PG Mean Corpuscular Hemoglobin Concent 32 32-36 G/DL Red Cell Distribution Width 19.4 H 10.0-14.5 % Platelet Count 239 130-400 10^3/uL Mean Platelet Volume 10.5 H 7.4-10.4 FL Neutrophils (%) (Auto) 87 H 42-75 % Lymphocytes (%) (Auto) 5 L 12-44 % Monocytes (%) (Auto) 5 0-12 % Eosinophils (%) (Auto) 3 0-10 % Basophils (%) (Auto) 0 0-10 % Neutrophils # (Auto) 6.3 1.8-7.8 X 10^3 Lymphocytes # (Auto) 0.4 L 1.0-4.0 X 10^3 Monocytes # (Auto) 0.4 0.0-1.0 X 10^3 Eosinophils # (Auto) 0.2 0.0-0.3 10^3/uL Basophils # (Auto) 0.0 0.0-0.1 10^3/uL Neutrophils % (Manual) 91 % Lymphocytes % (Manual) 5 % Monocytes % (Manual) 0 % Eosinophils % (Manual) 3 % Basophils % (Manual) 0 % Band Neutrophils 1 % Anisocytosis SLIGHT Microcytosis SLIGHT Elliptocytes MODERATE Sodium Level 138 135-145 MMOL/L Potassium Level 4.7 3.6-5.0 MMOL/L Chloride Level 109 H 98-107 MMOL/L Carbon Dioxide Level 22 21-32 MMOL/L Anion Gap 7 5-14 MMOL/L Blood Urea Nitrogen 18 7-18 MG/DL Creatinine 0.94 0.60-1.30 MG/DL Estimat Glomerular Filtration Rate 57 BUN/Creatinine Ratio 19 Glucose Level 121 H 70-105 MG/DL Calcium Level 9.3 8.5-10.1 MG/DL Corrected Calcium 9.3 8.5-10.1 MG/DL Total Bilirubin 0.7 0.1-1.0 MG/DL Aspartate Amino Transf (AST/SGOT) 41 H 5-34 U/L Alanine Aminotransferase (ALT/SGPT) 19 0-55 U/L Alkaline Phosphatase 102 40-136 U/L Total Protein 7.5 6.4-8.2 GM/DL Albumin 4.0 3.2-4.5 GM/DL Lipase 54 8-78 U/L Thyroid Stimulating Hormone (TSH) 0.91 0.35-4.94 UIU/ML Free Thyroxine 1.28 0.70-1.48 NG/DL Urine Color YELLOW Urine Clarity SLIGHTLY CLOUDY Urine pH 6 5-9 Urine Specific [place] 1.020 1.016-1.022 Urine Protein 1+ H NEGATIVE Urine Glucose (UA) NEGATIVE NEGATIVE Urine Ketones NEGATIVE NEGATIVE Urine Nitrite NEGATIVE NEGATIVE Urine Bilirubin 1+ H NEGATIVE Urine Urobilinogen 4 H NORMAL MG/DL Urine Leukocyte Esterase 1+ H NEGATIVE Urine RBC (Auto) 1+ H NEGATIVE Urine RBC 2-5 H /HPF Urine WBC 2-5 /HPF Urine Squamous Epithelial Cells 5-10 /HPF Urine Crystals NONE /LPF Urine Bacteria FEW H /HPF Urine Casts NONE /LPF Urine Mucus LARGE H /LPF Urine Culture Indicated NO Micro Results Microbiology 07/20/18 Influenza Types A,B Antigen ([facility]ON) - Final, Complete My Orders Orders - DEVI BERGERON MD Cbc With Automated Diff (07/20/18 14:32) Comprehensive Metabolic Panel (07/20/18 14:32) Lipase (07/20/18 14:32) Ua Culture If Indicated (07/20/18 14:32) Saline Lock/Iv-Start (07/20/18 14:32) Abdomen, Flat & Upright/Decub (07/20/18 14:32) Manual Differential (07/20/18 14:29) Influenza A And B Antigens (07/20/18 15:20) Ondansetron Injection (Zofran Injectio (07/20/18 15:19) Ct Abdomen/Pelvis W (07/20/18 15:57) Ondansetron Injection (Zofran Injectio (07/20/18 16:00) Iohexol Injection (Omnipaque 350 Mg/Ml 1 (07/20/18 16:15) Received Contrast (Contrast Received) (07/20/18 16:15) Ns (Ivpb) (Sodium Chloride 0.9% Ivpb Bag (07/20/18 16:15) Ketorolac Injection (Toradol Injection) (07/20/18 18:30) Free T4 (Free Thyroxine) (07/20/18 18:37) Thyroid Stimulating Hormone (07/20/18 18:37) Medications Given in ED Current Medications Medications Dose Ordered Sig/Cora Route Start Time Stop Time Status Last Admin Dose Admin Iohexol 100 ml ONCE ONCE IV 07/20/18 16:15 07/20/18 16:16 DC 07/20/18 17:12 100 ML Ketorolac Tromethamine 15 mg ONCE ONCE IVP 07/20/18 18:30 07/20/18 18:31 DC 07/20/18 18:20 15 MG Ondansetron HCl 4 mg STK-MED ONCE .ROUTE 07/20/18 15:19 07/20/18 15:22 DC 07/20/18 15:23 4 MG Sodium Chloride 100 ml ONCE ONCE IV 07/20/18 16:15 07/20/18 16:16 DC 07/20/18 17:12 80 ML Vital Signs/I&O 07/20/18 07/20/18 14:22 18:39 Temp 99.8 99.8 Pulse 84 84 Resp 16 16 B/P (MAP) 149/82 (104) 149/82 (104) Pulse Ox 98 98 Blood Pressure Mean: 104 Progress Progress Note : Progress Note Labs were relatively unremarkable. Patient required multiple doses of anti- medic treatment with Zofran. I'm concerned about her somewhat distended abdomen with tenderness and fever at the age of 83. [address] imaging of the abdomen. There was some subtle dilatation of the bowel on the x-ray and that made me concerned she may have an early small bowel obstruction. CT was obtained. Constipation was noted without overt intestinal obstruction. We discussed treatment regimen of multiple doses of MiraLAX daily along with an enema or Dulcolax suppository. See discharge instructions for further conversation. Patient did pass a trial of oral water prior to dismissal. Toradol was given for pain control. Patient stated she did not believe her thyroid labs have been checked in quite some time. TSH and free T4 were added to her blood work before discharge. She will review the results with Dr. Soni in follow-up. Diagnostic Imaging Diagonstic Imaging: Xray Plain Films/CT/US/NM/MRI: abdomen, pelvis Comments X-ray of the abdomen and pelvis viewed by me and report reviewed. See report below: NAME: GARFIELD MCKEON [facility] REC#: [id number] PT STATUS: REG ER : 1935 PHYSICIAN: DEVI BERGERON MD ADMIT DATE: 07/20/18/ER Signed Date of Exam:07/20/18 ABDOMEN, FLAT UPRIGHT/DECUB INDICATION: Nausea and vomiting. Cough. TIME OF EXAMINATION: 2:54 PM. COMPARISON: 11/23/2017. FINDINGS: No definite free air is identified. The bowel gas pattern appears nonobstructive. There is moderate stool throughout the colon, consistent with constipation. No pathologic calcifications are seen. IMPRESSION: Moderate stool is suggestive of constipation. No other significant abnormality is seen. Dictated by: Dictated on workstation # [id number] Dict: 07/20/18 1506 Trans: 07/20/18 1524 [id number] Interpreted by: MARY TAPIA MD Electronically signed by: MARY TAPIA MD 07/20/18 1524 Diagonstic Imaging: CT Plain Films/CT/US/NM/MRI: abdomen, pelvis Comments CT scans viewed by me and report reviewed. See report below: NAME: GARFIELD MCKEON [facility] REC#: [id number] PT STATUS: DEP ER : 1935 PHYSICIAN: DEVI BERGERON MD ADMIT DATE: 07/20/18/ER Signed Date of Exam: 07/20/18 CT ABDOMEN/PELVIS W CLINICAL INDICATION: Patient with nausea, vomiting, fever and mid abdominal pain. Patient has history of CHF. Patient has surgical history of gallbladder resection, appendectomy, and hysterectomy. EXAM: Axial CT scan of the abdomen and pelvis performed with 100 cc of Omnipaque 350 IV contrast. Coronal and sagittal reformatted images are created. COMPARISON: CT scan of the abdomen and pelvis performed with contrast dated 08/17/2014. CT scan of the abdomen and pelvis with contrast dated 12/23/2011. FINDINGS: Visualized lung bases are clear. There are degenerative spurs and subchondral cysts involving the right hip region. There are degenerative spurs and facet arthropathy involving the lower lumbar spine. Stable increased vascularity within the left lobe of liver which may represent a vascular malformation. This is stable compared to the prior CT scan dated 12/23/2011. Otherwise, liver is unremarkable. The spleen and adrenal glands are unremarkable. Stable atrophic pancreas which is otherwise unremarkable. Stable scarring and atrophy of both kidneys. There is no hydronephrosis, mass, or stone. Bladder is decompressed with small amount of fluid in it and no significant abnormality. There are postop changes with surgical anastomosis in the rectosigmoid region. There are air distended intestines overlying the left abdomen which demonstrates varying degrees of gaseous distention compared to the two prior CT scans. There is distended loop of bowel overlying the left midabdomen extends to the left upper quadrant region displacing the stomach superiorly and causing some mass effect. Otherwise, the stomach is partially fluid-filled and shows no other significant abnormality. There is moderate amount of stool seen throughout the colon with air distention noted. The small bowel is nondilated and shows no significant abnormality. There is no intra-abdominal free air or free fluid. Appendix is surgically absent. Gallbladder is surgically absent. The uterus is surgically absent. The extra-abdominal and extrapelvic soft tissue structures show no significant interval abnormality. IMPRESSION: 1: There is air and stool distended colon with moderate amount of stool seen. There is a prominent area of air distended colon overlying left abdomen which showed varying degrees of air distention compared to the prior CT scans. This air distended portion of the colon is seen encroaching upon the left upper quadrant and causing mass effect upon the stomach displacing it superiorly. This may possibly be the cause of patient's symptoms. There is no definite intestinal obstruction seen. Clinical correlation if patient has history of atonic bowel in this region. 2: Otherwise remainder of the abdomen and pelvis shows no interval acute abnormality. 3: The remainder of this exam shows no significant interval change compared to the prior study of comparison. Dictated by: Dictated on workstation # [id number] Dict: 07/20/181728 Trans: 07/20/181849 Interpreted by: SEBASTIAN CLANCY MD Electronically signed by: SEBASTIAN CLANCY MD 07/20/181849 Departure Impression Primary Impression: Constipation Qualified Codes: K59.00 - Constipation, unspecified Additional Impressions: Generalized abdominal pain Nausea and vomiting Qualified Codes: R11.2 - Nausea with vomiting, unspecified Fever Qualified Codes: R50.9 - Fever, unspecified Disposition: 01 HOME, SELF-CARE Condition: Improved Departure-Patient Inst. Decision time for Depature: 18:15 Referrals: ESTHER SONI DO (PCP/Family) Primary Care Physician Patient Instructions: Constipation, Adult (DC) Add. Discharge Instructions: Drink plenty of clear liquids. Consume only clear liquids for the next 24 hours. After resuming solid foods, eat plenty of fruits, vegetables, and whole grains. Avoid excessive meats, cheeses, and processed foods as they may worsen constipation. Using MiraLAX up to 3 times daily until a good bowel movement is produced. Fill cap to line and mix with 8-12 oz of liquid drink. I also suggest that you use something rectally to help with constipation such as a Dulcolax suppository or a fleets enema. You may repeat several hours later if necessary. You may continue taking Tylenol (acetaminophen) up to 1000 mg every 6 hours as needed for pain. Dissolve Zofran (ondansetron) under the tongue every 4 hours as needed for nausea and vomiting. Return to care if you're having worsening symptoms. Keep your follow-up appointment with your doctor. All discharge instructions reviewed with patient and/or family. Voiced understanding. Scripts Ondansetron (Ondansetron Odt) 4 Mg Tab.rapdis 4 MG SL Q4H PRN for NAUSEA/VOMITING, #10 TAB Prov: DEVI BERGERON MD 07/20/18 Copy Copies To 1: ESTHER SONI JOSHUA T MD Jul 20, 2018 15:47
[2018-07-20] MEDS ORDERED: ONDANSETRON 4 MG/2 ML (SDV) Z0FRAN IVP ONE (16:00)
[2018-07-20 16:11] LABS: CLARITY,URINE SLIGHTLY CLOUDY; COLOR,URINE YELLOW; GLUCOSE, URINE (UA) NEGATIVE (NEGATIVE); KETONES,URINE NEGATIVE (NEGATIVE); LEUKOCYTE ESTERASE ,URINE 1+ (NEGATIVE); NITRITE,URINE NEGATIVE (NEGATIVE); PH,URINE 6 (5-9); PROTEIN,URINE 1+ (NEGATIVE); UROBILINOGEN,URINE 4 MG/DL (NORMAL)
[2018-07-20] MEDS ORDERED: IOHEXOL 350 MG/ML 100 ML (OMNIPAQUE 350) VIAL IV ONE (16:15)
[2018-07-20] MEDS ORDERED: NS 100 ML (IVPB) BAG IV ONE (16:15)
[2018-07-20] MEDS ORDERED: RECEIVED CONTRAST 20 ML VIAL IV SCH (16:15)
[2018-07-20 16:30] LABS: BILIRUBIN,URINE 1+ (NEGATIVE)
[2018-07-20 16:31] LABS: BACTERIA,URINE FEW /HPF
--- NOTE | 2018-07-20 17:55 | Diagnostic Imaging Report ---
CLINICAL INDICATION: Patient with nausea, vomiting, fever and mid abdominal pain. Patient has history of CHF. Patient has surgical history of gallbladder resection, appendectomy, and hysterectomy. EXAM: Axial CT scan of the abdomen and pelvis performed with 100 cc of Omnipaque 350 IV contrast. Coronal and sagittal reformatted images are created. COMPARISON: CT scan of the abdomen and pelvis performed with contrast dated 08/17/2014. CT scan of the abdomen and pelvis with contrast dated 12/23/2011. FINDINGS: Visualized lung bases are clear. There are degenerative spurs and subchondral cysts involving the right hip region. There are degenerative spurs and facet arthropathy involving the lower lumbar spine. Stable increased vascularity within the left lobe of liver which may represent a vascular malformation. This is stable compared to the prior CT scan dated 12/23/2011. Otherwise, liver is unremarkable. The spleen and adrenal glands are unremarkable. Stable atrophic pancreas which is otherwise unremarkable. Stable scarring and atrophy of both kidneys. There is no hydronephrosis, mass, or stone. Bladder is decompressed with small amount of fluid in it and no significant abnormality. There are postop changes with surgical anastomosis in the rectosigmoid region. There are air distended intestines overlying the left abdomen which demonstrates varying degrees of gaseous distention compared to the two prior CT scans. There is distended loop of bowel overlying the left midabdomen extends to the left upper quadrant region displacing the stomach superiorly and causing some mass effect. Otherwise, the stomach is partially fluid-filled and shows no other significant abnormality. There is moderate amount of stool seen throughout the colon with air distention noted. The small bowel is nondilated and shows no significant abnormality. There is no intra-abdominal free air or free fluid. Appendix is surgically absent. Gallbladder is surgically absent. The uterus is surgically absent. The extra-abdominal and extrapelvic soft tissue structures show no significant interval abnormality. IMPRESSION: 1: There is air and stool distended colon with moderate amount of stool seen. There is a prominent area of air distended colon overlying left abdomen which showed varying degrees of air distention compared to the prior CT scans. This air distended portion of the colon is seen encroaching upon the left upper quadrant and causing mass effect upon the stomach displacing it superiorly. This may possibly be the cause of patient's symptoms. There is no definite intestinal obstruction seen. Clinical correlation if patient has history of atonic bowel in this region. 2: Otherwise remainder of the abdomen and pelvis shows no interval acute abnormality. 3: The remainder of this exam shows no significant interval change compared to the prior study of comparison. Dictated by: Dictated on workstation # [id number]
[2018-07-20] MEDS ORDERED: KETOROLAC 30 MG/ML VIAL IVP ONE (18:30)
[2018-07-20] MEDS ORDERED: ONDA4TAB11 SL (18:30)
[2018-07-20 18:39] VITALS: BP 149/82
[2018-07-20 19:14] LABS: FREE T4 (FREE THYROXINE) 1.28 NG/DL (0.70-1.48)
== END 2018-07-20 18:41 | disposition home or self-care (01) ==
LOC: EDUNIT# 14:17 → ER 14:18
DX: K59.00 Constipation, unspecified (principal); R50.9 Fever, unspecified; R11.2 Nausea with vomiting, unspecified; J44.9 Chronic obstructive pulmonary disease, unspecified; I42.9 Cardiomyopathy, unspecified; I25.10 Atherosclerotic heart disease of native coronary artery without angina pectoris; K58.9 Irritable bowel syndrome, unspecified; I10 Essential (primary) hypertension; F41.9 Anxiety disorder, unspecified; F32.9 Major depressive disorder, single episode, unspecified; D64.9 Anemia, unspecified; M81.0 Age-related osteoporosis without current pathological fracture; I48.91 Unspecified atrial fibrillation; Z88.0 Allergy status to penicillin; Z88.8 Allergy status to other drugs, medicaments and biological substances; Z82.49 Family history of ischemic heart disease and other diseases of the circulatory system; Z87.448 Personal history of other diseases of urinary system; Z87.19 Personal history of other diseases of the digestive system; Z95.0 Presence of cardiac pacemaker; Z88.2 Allergy status to sulfonamides; Z88.1 Allergy status to other antibiotic agents; Z79.51 Long term (current) use of inhaled steroids; Z90.49 Acquired absence of other specified parts of digestive tract; Z98.890 Other specified postprocedural states; Z90.89 Acquired absence of other organs; Z90.710 Acquired absence of both cervix and uterus; Z91.048 Other nonmedicinal substance allergy status
CPT/HCPCS: 36415; 74019; 74177; 80053; 81000; 83690; 84439; 84443; 85007; 85027; 87804

== ENCOUNTER → 2018-08-29 | Outpatient (CLI) | payer MEDICARE, MEDICAID ==
[~2018-08-29] MED LIST changes: +ONDA4TAB11 SL; -RIVA20TA PO; +RIVA20TA2 PO
--- NOTE | 2018-08-29 15:51 | Diagnostic Imaging Report ---
INDICATION: Shortness of breath. EXAMINATION: PA and lateral chest. FINDINGS: There are postop changes from valve repair. There is a dual-chamber pacemaker. The heart size and pulmonary vascularity are normal. The lungs are clear. There are no effusions or pneumothoraces. IMPRESSION: No acute abnormalities in the chest. Dictated by: Dictated on workstation # [id number]
== END ==
LOC: RAD 14:21
PROVIDERS: ATTEND Internal Medicine
DX: R06.02 Shortness of breath (principal); Z95.0 Presence of cardiac pacemaker
CPT/HCPCS: 71046

== ENCOUNTER 2018-09-11 21:33 | Observation (INO) | payer MEDICARE, MEDICAID ==
[~2018-09-11] VITALS: Ht 167.6 cm; Wt 76.5 kg
[2018-09-11] MEDS ORDERED: FAMOTIDINE 20 MG (PEPCID) TABLET PO STA (21:42)
[2018-09-11] MEDS ORDERED: LIDOCAINE 2% VISCOUS 15 ML UDC PO ONE (21:45)
[2018-09-11] MEDS ORDERED: ANTACID SUSP 30 ML UDC (MYLANTA) PO ONE (21:45)
--- OUTSIDE RECORDS SUMMARY | 2018-09-11 21:45 | XMS REPORT | Clinical Summary ---
Author Author [facility] Organization [facility] Address Unknown Phone Unavailable Care Team Providers Care Watch Crystal Grinder Name Role Phone Martinez Soni MD PCP Lukas Bland MD Unavailable Source Comments Some departments are not documenting in the electronic medical record. If you do not see the information that you expected, contact Release of Information in the Health Information Management department at [phone] for further assistance in locating additional records.[facility] Allergies Comments Active Allergy Reactions Severity Noted [...] (1 of 2 - PCV13) INFLUENZA VACCINE 02/07/2019 02/14/2016 Implants Device Identifier Shelf Expiration Date Model / Serial / Lot Implanted Type Area Manufactur er Pacemaker Pacemaker 08/08/2020 [id number] / NA / [id number] Atriclip 45mm Pro2 Gena Exclusion Left: Heart ATRICURE System Saqibv-Yonas - Sna Implanted: Qty: 1 on 12/16/2017 by Vidal Longo MD Results Not on filefrom Last 3 Months Insurance Type Payer Benefit Subscriber ID Effective Phone Address Plan / Dates Group Medicare MEDICARE MEDICARE xxxxxxxxxxx 2001-P PART A AND resent B Medicaid UHC MEDICAID [place] UHC xxxxxxxxxxx 2017-P [place]AN [place] Advance Directives Patient has advance care planning documents, and code status on file. For more information, please contact: [facility] [address] [place] [address] Date Inactivated Comments Code Status Date Activated 12/20/2017 3:36 PM Full Code 12/16/2017 8:43 AM Provider has discussed Code Status Yes w/Patient or Family?
--- NOTE | 2018-09-11 21:50 | ED Chest Pain ---
General Chief Complaint: Chest Pain Stated Complaint: CHEST PAIN Source: patient, EMS Exam Limitations: no limitations History of Present Illness Date Seen by Provider: September 11, 2018 Time Seen by Provider: 21:35 Initial Comments The patient presents by EMS with chief complaint of chest pain substernal going on for the past 2 hours. She says the pill at first like she had a tight bra on but she did not have a broad and then became sharp coming and going. She denies a history of coronary artery disease or stents but she did have her atrial appendages clipped because she had bleeding ulcers and did not tolerate anticoagulants for her atrial fibrillation. She denies feeling of fast heart rate or palpitations. She denies syncope. She has no nausea or sweats. She does have high blood pressure, hypothyroidism and denies diabetes. She thought at first it was her acid reflux which has been a constant problem lately but she tried some antacids at home and it did not help. 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 She usually nausea. She refused aspirin from EMS because she does not want take anything with a blood thinner. They gave her a nitroglycerin patch which helped reduce her pain and her elevated blood pressure 180/100. EMS reports that her 12 -lead showed her going in and out of atrial fibrillation and a paced rhythm. She has a pacemaker. Allergies and Home Medications Allergies Coded Allergies: levofloxacin (Unverified Allergy, Mild, RASH, 07/20/18) Penicillins (Verified Allergy, Unknown, 07/20/18) Shellfish (Verified Allergy, Unknown, 07/20/18) Sulfa (Sulfonamide Antibiotics) (Verified Allergy, Unknown, 07/20/18) azithromycin (Unverified Allergy, Unknown, ITCHING, 07/20/18) cephalexin (Verified Allergy, Unknown, 07/20/18) erythromycin base (Verified Allergy, Unknown, 07/20/18) furosemide (Verified Allergy, Unknown, 07/20/18) nitrofurantoin (Unverified Allergy, Unknown, ITCHING/"THICK TONGUE", ) tetracycline (Verified Allergy, Unknown, 07/20/18) Uncoded Allergies: TAPE (Allergy, Unknown, 07/26/07) Home Medications Acetaminophen 500 Mg Tablet, 500 MG PO BID PRN for PAIN-MILD, (Reported) Alprazolam 0.25 Mg Tablet, 0.25 MG PO Q8H PRN for ANXIETY, (Reported) Amiodarone HCl 200 Mg Tablet, 100 MG PO DAILY, (Reported) TAKES 1/2 (200MG) TABLET Amlodipine Besylate 5 Mg Tablet, 5 MG PO DAILY, (Reported) Clindamycin HCl 300 Mg Capsule, 300 MG PO TID Prescribed by: MIGUEL ÁNGEL DANIEL on 11/26/17 1001 Clindamycin HCl 300 Mg Capsule, 300 MG PO QID Prescribed by: DEVI KO on 12/04/17 1151 Cyanocobalamin 1,000 Mcg/Ml Inj, 1,000 MCG INJ MONTHLY, (Reported) Docusate Sodium 100 Mg Capsule, 100 MG PO DAILY PRN for CONSTIPATION-1ST LINE, ( Reported) Fexofenadine HCl 180 Mg Tablet, 180 MG PO DAILY PRN for ALLERGIES, (Reported) Fluticasone Propionate 9.9 Ml [place].susp, 2 SPRAY NS DAILY 2 SPRAYS PER NOSTRIL DAILY X 2 DAYS THEN 1 SPRAY DAILY Prescribed by: EDWARD MG on 02/27/18 1650 Irbesartan 300 Mg Tablet, 300 MG PO DAILY, (Reported) Latanoprost 2.5 Ml Drops, 1 DROP OU HS, (Reported) Levothyroxine Sodium 50 Mcg Tablet, 50 MCG PO DAILY, (Reported) Loratadine 10 Mg Tablet, 10 MG PO DAILY Prescribed by: DEVI KO on 12/04/17 1152 Montelukast Sodium 10 Mg Tablet, 10 MG PO DAILY, (Reported) Omeprazole 40 Mg Capsule.dr, 40 MG PO HS, (Reported) Ondansetron 4 Mg Tab.rapdis, 4 MG SL Q4H PRN for NAUSEA/VOMITING Prescribed by: DEVI KO on 07/20/18 1830 Polyethylene Glycol 3350 17 Gm Powd.pack, 17 GM PO HS, (Reported) Potassium Chloride 10 Meq Tab.er.prt, 10 MEQ PO DAILY, (Reported) Temazepam 15 Mg Capsule, 15 MG PO HS PRN for INSOMNIA, (Reported) Trimethoprim 100 Mg Tablet, 100 MG PO HS, (Reported) Patient Home Medication List Home Medication List Reviewed: Yes Review of Systems Review of Systems Constitutional: No chills, No fever EENTM: No Blurred Vision, No Double Vision Respiratory: Denies Cough, Denies Shortness of Air Cardiovascular: See HPI, Chest Pain; Denies Edema, Denies Lightheadedness, Denies Palpitations, Denies Syncope Gastrointestinal: See HPI; Denies Abdominal Pain, Denies Nausea Past [id number]-[id number]-[id number] Hx Patient Social History Alcohol Use: Denies Use Recreational Drug Use: No Smoking Status: Never a Smoker 2nd Hand Smoke Exposure: No Recent Hopitalizations: No Immunizations Up To Date Tetanus Booster (TDap): Less than 5yrs PED Vaccines UTD: No Date of Pneumonia Vaccine: October 03, 2016 Date of Influenza Vaccine: Feb 08, 2012 Seasonal Allergies Seasonal Allergies: Yes Past Medical History Surgeries: Yes (JUDE JENKINS) Abdominal, Appendectomy, Cardiac, Gallbladder, Hysterectomy, Pacemaker, Rectal, Thyroidectomy, Tonsillectomy Respiratory: Yes Asthma, Sleep Apnea Currently Using CPAP: Yes Currently Using BIPAP: No Cardiac: Yes (SINUS NODE DYSFUNCTION) Atrial Fibrillation, Cardiomyopathy, Chronic Edema/Swelling, Coronary Artery Disease, Hypertension Neurological: No 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 Disorders: No STUDENT DEVELOPMENT DEAN History: Hysterectomy Genitourinary: Yes Bladder Infection Gastrointestinal: Yes Gastrointestinal Bleed, Hemorrhoids, Irritable Bowel Musculoskeletal: Yes (OSTEOARTHRITIS, FX RIGHT LOWER LEG, DISLOCATED RIGHT SHOULDER) Osteoporosis, Arthritis, Fractures Endocrine: Yes (THYROIDECTOMY; DIET CONTROLLED DIABETES) Hypothyroidsim, Diabetes, Non-Insulin dep HEENT: Yes Glaucoma Hearing Impairment: Hard of Hearing Cancer: No Psychosocial: Yes Anxiety, Depression Integumentary: No Blood Disorders: Yes (ANEMIA) Adverse Reaction/Blood Tranf: No Family Medical History Family history: Hypertension 03 FATHER, Onset:40's - 50 09 BROTHER, Onset:40's - 50 History of drug abuse 03 FATHER, Onset:20's - 25 Stroke 03 FATHER, Onset:60 years & older No Pertinent Family Hx Physical Exam Vital Signs Vital Signs - First Documented Capillary Refill : Height, Weight, BMI Height: 5'6.00" Weight: 163lbs. 0.0oz. 73.327717mi; 27.0 BMI Method:Stated General Appearance: No Apparent Distress, Obese HEENT: PERRL/EOMI, Pharynx Normal, Moist Mucous Membranes Neck: Full Range of Motion, Normal Inspection Respiratory: Chest Non Tender, Lungs Clear, Normal Breath Sounds, No Accessory Muscle Use, No Respiratory Distress Cardiovascular: Regular Rate, Rhythm, No Edema, Normal Peripheral Pulses Gastrointestinal: Normal Bowel Sounds, No Organomegaly, Non Tender Extremity: Normal Capillary Refill, Normal Inspection, No Pedal Edema Neurologic/Psychiatric: Alert, Oriented x3, No Motor/Sensory Deficits Skin: Normal Color, Warm/Dry Progress/Results/Core Measures Results/Orders Lab Results Laboratory Tests Test 09/11/18 21:37 Range/Units White Blood Count 5.6 4.3-11.0 10^3/uL Red Blood Count 4.96 4.35-5.85 10^6/uL Hemoglobin 11.1 L 11.5-16.0 G/DL Hematocrit 36 35-52 % Mean Corpuscular Volume 73 L 80-99 FL Mean Corpuscular Hemoglobin 22 L 25-34 PG Mean Corpuscular Hemoglobin Concent 31 L 32-36 G/DL Red Cell Distribution Width 18.2 H 10.0-14.5 % Platelet Count 261 130-400 10^3/uL Mean Platelet Volume 10.0 7.4-10.4 FL Neutrophils (%) (Auto) 51 42-75 % Lymphocytes (%) (Auto) 33 12-44 % Monocytes (%) (Auto) 10 0-12 % Eosinophils (%) (Auto) 6 0-10 % Basophils (%) (Auto) 1 0-10 % Neutrophils # (Auto) 2.9 1.8-7.8 X 10^3 Lymphocytes # (Auto) 1.8 1.0-4.0 X 10^3 Monocytes # (Auto) 0.5 0.0-1.0 X 10^3 Eosinophils # (Auto) 0.3 0.0-0.3 10^3/uL Basophils # (Auto) 0.1 0.0-0.1 10^3/uL Prothrombin Time 13.9 12.2-14.7 SEC INR Comment 1.0 0.8-1.4 Activated Partial Thromboplast Time 32 24-35 SEC Sodium Level 142 135-145 MMOL/L Potassium Level 4.1 3.6-5.0 MMOL/L Chloride Level 110 H 98-107 MMOL/L Carbon Dioxide Level 21 21-32 MMOL/L Anion Gap 11 5-14 MMOL/L Blood Urea Nitrogen 16 7-18 MG/DL Creatinine 0.98 0.60-1.30 MG/DL Estimat Glomerular Filtration Rate 54 BUN/Creatinine Ratio 16 Glucose Level 126 H 70-105 MG/DL Calcium Level 10.0 8.5-10.1 MG/DL Corrected Calcium 9.8 8.5-10.1 MG/DL Magnesium Level 2.7 H 1.8-2.4 MG/DL Total Bilirubin 0.4 0.1-1.0 MG/DL Aspartate Amino Transf (AST/SGOT) 16 5-34 U/L Alanine Aminotransferase (ALT/SGPT) 12 0-55 U/L Alkaline Phosphatase 101 40-136 U/L Myoglobin 21.2 10.0-92.0 NG/ML Troponin I < 0.028 <0.028 NG/ML B-Type Natriuretic Peptide 91.1 <100.0 PG/ML Total Protein 7.6 6.4-8.2 GM/DL Albumin 4.2 3.2-4.5 GM/DL Lipase 56 8-78 U/L My Orders Orders - DENA BLAKE Cbc With Automated Diff (09/11/18 21:42) Magnesium (09/11/18 21:42) Chest 1 View, Ap/Pa Only (09/11/18 21:42) Ekg Tracing (09/11/18 21:42) Cardiac Profile 1 (09/11/18 21:42) Comprehensive Metabolic Panel (09/11/18 21:42) Myoglobin Serum (09/11/18 21:42) Protime With Inr (09/11/18 21:42) Partial Thromboplastin Time (09/11/18 21:42) O2 (09/11/18 21:42) Monitor-Rhythm Ecg Trace Only (09/11/18 21:42) Lipid Panel (09/12/18 06:00) Ed Iv/Invasive Line Start (09/11/18 21:42) Lipase (09/11/18 21:42) BNP (09/11/18 21:42) Lidocaine 2% Viscous 15 Ml (Xylocaine Vi (09/11/18 21:45) Famotidine Tablet (Pepcid Tablet) (09/11/18 21:42) Antacid Suspension (Mylanta Suspension (09/11/18 21:45) Ed Iv/Invasive Line Start (09/11/18 21:42) Medications Given in ED Current Medications Medications Dose Ordered Sig/Cora Route Start Time Stop Time Status Last Admin Dose Admin Al Hydrox/Mg Hydrox/Simethicone 30 ml ONCE ONCE PO 09/11/18 21:45 5/5/19 21:46 DC 09/11/18 21:54 30 ML Lidocaine HCl 15 ml ONCE ONCE PO 09/11/18 21:45 09/11/18 21:46 DC 09/11/18 21:54 15 ML Vital Signs/I&O 09/11/18 09/11/18 21:33 21:33 Temp 98.4 Pulse 81 Resp 18 B/P (MAP) 168/89 (115) O2 Delivery Room Air Room Air Progress Progress Note #1: Time: 21:49 Progress Note She is refusing aspirin and nitroglycerin has helped her pain. Plan to try a GI cocktail. Initial EKG shows PVCs but no ST elevation or depression. She is in atrial fibrillation. She is under good rate control on amiodarone and a beta alma rosa. States some arm. She says she has not taken her evening Nexium so we will give her some Pepcid. ED ACS 18 points. Not low risk. This patient is not a candidate for early discharge and should receive a standard chest pain evaluation with delayed troponin testing. History of atrial fibrillation with lower GI bleeding, severe sinus node dysfunction requiring permanent pacemaker implantation which was done on 2017. Echocardiogram December [address] Bland: EF 50-55%. Mildly reduced systolic function with a grade 1 diastolic dysfunction. Progress Note #2: Time: 23:03 Progress Note After the GI cocktail her pain improved considerably. Her blood pressures but better on the nitroglycerin patch. We'll go ahead and talk to cardiology about getting her observed and she probably be fine for the medical floor as she is chest pain-free with good vital signs. Initial ECG Impression Date: September 11, 2018 Initial ECG Impression Time: 21:36 Initial ECG Rate: 67 Initial ECG Rhythm: A Fib/Flutter Initial ECG Intervals: Normal Initial ECG Impression: Atrial Fibrillation Initial ECG Comparisson: Unchanged Comment A. fib without ST elevation or depression. Diagnostic Imaging Diagonstic Imaging: Xray Plain Films/CT/US/NM/MRI: chest (1v) Comments No acute cardiopulmonary processes noted. Reviewed: Reviewed by Me Departure Communication (Admissions) Time/Spoke to Admitting Phy: 22:40 Discussed the case with Dr. Barker and she would prefer the patient to be on the floor with telemetry and trend troponins. Time/Spoke to Consulting Phy: 22:35 Discussed the case with Dr. Tamayo and he agrees to observe the patient repeat troponins and see the patient in the morning. We discussed that the patient has refused blood thinners or aspirin. Impression Primary Impression: Chest pain Qualified Codes: R07.9 - Chest pain, unspecified Disposition: ADMITTED INPATIENT Condition: Stable Admissions Decision to Admit Reason: Admit from ER (General) Decision to Admit/Date: September 11, 2018 Time/Decision to Admit Time: 22:31 Departure-Patient Inst. Referrals: ESTHER DANIELLE DO (PCP/Family) Primary Care Physician DENA BLAKE September 11, 2018 21:50
[2018-09-11 21:53] LABS: BASOPHILS # (AUTO) 0.1 10^3/uL (0.0-0.1); BASOPHILS % (AUTO) 1 % (0-10); EOSINOPHILS # (AUTO) 0.3 10^3/uL (0.0-0.3); EOSINOPHILS % (AUTO) 6 % (0-10); HEMATOCRIT 36 % (35-52); HEMOGLOBIN 11.1 G/DL (11.5-16.0); LYMPHOCYTES # (AUTO) 1.8 X 10^3 (1.0-4.0); LYMPHOCYTES % (AUTO) 33 % (12-44); MEAN CORPUSCULAR HEMOGLOBIN 22 PG (25-34); MEAN CORPUSCULAR HGB CONC 31 G/DL (32-36); MEAN CORPUSCULAR VOLUME 73 FL (80-99); MONOCYTES # (AUTO) 0.5 X 10^3 (0.0-1.0); MONOCYTES % (AUTO) 10 % (0-12); NEUTROPHILS # (AUTO) 2.9 X 10^3 (1.8-7.8); NEUTROPHILS % (AUTO) 51 % (42-75); PLATELET COUNT 261 10^3/uL (130-400); RED CELL DISTRIBUTION WIDTH 18.2 % (10.0-14.5); WHITE BLOOD COUNT 5.6 10^3/uL (4.3-11.0)
[2018-09-11 21:59] LABS: PROTHROMBIN TIME PATIENT 13.9 SEC (12.2-14.7)
[2018-09-11 22:12] LABS: ALANINE AMINOTRANSFERASE 12 U/L (0-55); ALBUMIN 4.2 GM/DL (3.2-4.5); ALKALINE PHOSPHATASE 101 U/L (40-136); BILIRUBIN,TOTAL 0.4 MG/DL (0.1-1.0); BUN/CREATININE RATIO 16; CARBON DIOXIDE 21 MMOL/L (21-32); CHLORIDE 110 MMOL/L (98-107); CREATININE SERUM 0.98 MG/DL (0.60-1.30); GFR ESTIMATED 54; GLUCOSE 126 MG/DL (70-105); LIPASE 56 U/L (8-78); MAGNESIUM 2.7 MG/DL (1.8-2.4); POTASSIUM 4.1 MMOL/L (3.6-5.0); SODIUM 142 MMOL/L (135-145); TOTAL PROTEIN 7.6 GM/DL (6.4-8.2)
--- NOTE | 2018-09-11 23:45 | NUR ---
NITRO PASTE TO LEFT CHEST REMOVED R/T BP TRENDING DOWN AND LAST BP 105/70.
--- OUTSIDE RECORDS SUMMARY | 2018-09-12 00:13 | XMS REPORT | Clinical Summary ---
Author Author [facility] Organization [facility] Address Unknown Phone Unavailable Care Team Providers Care Personal Service Workers Name Role Phone Martinez Soni MD PCP Lukas Bland MD Unavailable Source Comments Some departments are not documenting in the electronic medical record. If you do not see the information that you expected, contact Release of Information in the Health Information Management department at [phone] for further assistance in locating additional records.[facility] Allergies Comments Active Allergy Reactions Severity Noted [...] Type Area Manufactur er Pacemaker Pacemaker 08/08/2020 [id number] / [id number] / [id number] Atriclip 45mm Pro2 Gena Exclusion Left: Heart ATRICURE System Saqibv-Yonas - Sna Implanted: Qty: 1 on 12/16/2017 by Vidal Longo MD Results Not on filefrom Last 3 Months Insurance Type Payer Benefit Subscriber ID Effective Phone Address Plan / Dates Group Medicare MEDICARE MEDICARE xxxxxxxxxxx 2001-P PART A AND resent B Medicaid UHC MEDICAID [place] UHC xxxxxxxxxxx 2017-P COMMUNITY resent PLAN [place] Advance Directives Patient has advance care planning documents, and code status on file. For more information, please contact: [facility] [address] [place] [address] Date Inactivated Comments Code Status Date Activated 12/20/2017 3:36 PM Full Code 12/16/2017 8:43 AM Provider has discussed Code Status Yes w/Patient or Family?
[2018-09-12] MEDS ORDERED: ONDANSETRON 4 MG/2 ML (SDV) Z0FRAN IV PRN (02:00)
[2018-09-12] MEDS ORDERED: morphine INJ 4 MG/ML 1 ML (VIAL/SYRINGE) IV PRN (02:00)
[2018-09-12 04:00] VITALS: BP 161/80
[2018-09-12 04:16] LABS: BASOPHILS # (AUTO) 0.1 10^3/uL (0.0-0.1); BASOPHILS % (AUTO) 1 % (0-10); EOSINOPHILS # (AUTO) 0.2 10^3/uL (0.0-0.3); EOSINOPHILS % (AUTO) 5 % (0-10); HEMATOCRIT 32 % (35-52); HEMOGLOBIN 9.9 G/DL (11.5-16.0); LYMPHOCYTES # (AUTO) 1.8 X 10^3 (1.0-4.0); LYMPHOCYTES % (AUTO) 41 % (12-44); MEAN CORPUSCULAR HEMOGLOBIN 23 PG (25-34); MEAN CORPUSCULAR HGB CONC 31 G/DL (32-36); MEAN CORPUSCULAR VOLUME 74 FL (80-99); MEAN PLATELET VOLUME 9.9 FL (7.4-10.4); MONOCYTES # (AUTO) 0.3 X 10^3 (0.0-1.0); MONOCYTES % (AUTO) 8 % (0-12); NEUTROPHILS # (AUTO) 1.9 X 10^3 (1.8-7.8); NEUTROPHILS % (AUTO) 45 % (42-75); PLATELET COUNT 194 10^3/uL (130-400); RED CELL DISTRIBUTION WIDTH 17.8 % (10.0-14.5); WHITE BLOOD COUNT 4.4 10^3/uL (4.3-11.0)
[2018-09-12 04:43] LABS: ALANINE AMINOTRANSFERASE 11 U/L (0-55); ALBUMIN 3.5 GM/DL (3.2-4.5); ALKALINE PHOSPHATASE 82 U/L (40-136); BILIRUBIN,TOTAL 0.4 MG/DL (0.1-1.0); BUN/CREATININE RATIO 18; CALCIUM 9.2 MG/DL (8.5-10.1); CARBON DIOXIDE 22 MMOL/L (21-32); CHLORIDE 112 MMOL/L (98-107); CHOLESTEROL 161 MG/DL (< 200); CREATININE SERUM 0.87 MG/DL (0.60-1.30); GFR ESTIMATED > 60; GLUCOSE 128 MG/DL (70-105); HDL CHOLESTEROL 47 MG/DL (40-60); POTASSIUM 3.8 MMOL/L (3.6-5.0); SODIUM 142 MMOL/L (135-145); TOTAL PROTEIN 6.2 GM/DL (6.4-8.2); TRIGLYCERIDES 78 MG/DL (<150); VLDL CHOLESTEROL 16 MG/DL (5-40)
--- NOTE | 2018-09-12 06:49 | Diagnostic Imaging Report ---
INDICATION: Cardiac pacemaker, chest pain. COMPARISON: 08/29/2018. FINDINGS: Single view of the chest demonstrate stable mild cardiac enlargement. Lungs are clear. There is no pneumothorax. Pacemaker is stable. IMPRESSION: Stable cardiac enlargement without pulmonary edema or infiltrate. Dictated by: Dictated on workstation # [id number]
[2018-09-12] MEDS: LEVOTHYROXINE 50 MCG (LEVOTHROID) TAB PO SCH (06:56)
[2018-09-12 08:00] VITALS: BP 156/67
--- NOTE | 2018-09-12 08:28 | Consultation-Cardiology ---
HPI-Cardiology Cardiology Consultation Date of Consultation 09/12/18 Date of Admission Time Seen by Provider: 08:20 Indication: chest pain HPI 83 years old lady with history of paroxysmal atrial fibrillation, hypertension. Sinus node dysfunction, had a pacemaker implanted last year secondary to sinus node dysfunction dizziness. Patient was in her usual state of health reported having history of ulcer disease. Started to have chest pain described it as retrosternal sharp discomfort, usually respond to Nexium but recently no further improvement with the Nexium. The pain persisted for about 2 hours then she started having pressure and tightness in her chest underneath her breasts bilaterally, came into the emergency room, currently feeling better. Denied any active pain. No palpitation. No syncope or near syncopal episodes. No claudications. Home Medications & Allergies Allergies: Coded Allergies: levofloxacin (Unverified Allergy, Mild, RASH, 07/20/18) Penicillins (Verified Allergy, Unknown, 07/20/18) Shellfish (Verified Allergy, Unknown, 07/20/18) Sulfa (Sulfonamide Antibiotics) (Verified Allergy, Unknown, 07/20/18) azithromycin (Unverified Allergy, Unknown, ITCHING, 07/20/18) cephalexin (Verified Allergy, Unknown, 07/20/18) erythromycin base (Verified Allergy, Unknown, 07/20/18) furosemide (Verified Allergy, Unknown, 07/20/18) nitrofurantoin (Unverified Allergy, Unknown, ITCHING/"THICK TONGUE", ) tetracycline (Verified Allergy, Unknown, 07/20/18) Uncoded Allergies: TAPE (Allergy, Unknown, 07/26/07) Home Medication List Reviewed: Yes [id number] Hx Patient Social History Marital Status: Employed/Student: retired Alcohol Use: Denies Use Recreational Drug Use: No Smoking Status: Never a Smoker 2nd Hand Smoke Exposure: No Recent Foreign Travel: No Recent Infectious Disease Expo: No Recent Hopitalizations: No Physical Abuse Screen: No Sexual Abuse: No Immunizations Up To Date Tetanus Booster (TDap): Less than 5yrs Date of Pneumonia Vaccine: October 03, 2016 Date of Influenza Vaccine: Feb 08, 2012 Past Medical History Past medical history as described below Family Medical History Significant Family History: No Pertinent Family Hx Family History: Family history: Hypertension 03 FATHER, Onset:40's - 50 09 BROTHER, Onset:40's - 50 History of drug abuse 03 FATHER, Onset:20's - 25 Stroke 03 FATHER, Onset:60 years & older Review of Systems Constitutional: no symptoms reported, see HPI EENTM: see HPI, no symptoms reported Respiratory: see HPI; No cough; dyspnea on exertion; No hemoptysis, No orthopnea, No phlegm, No short of breath, No stridor, No wheezing, No other Cardiovascular: see HPI, chest pain; No edema, No Hx of Intervention, No palpitations, No syncope, No vascular heart diseas, No other Gastrointestinal: see HPI, abdominal pain Genitourinary: no symptoms reported, see HPI Musculoskeletal: no symptoms reported, see HPI Skin: no symptoms reported, see HPI Psychiatric/Neurological: No Symptoms Reported, See HPI Reviewed Test Results Reviewed Test Results Lab Laboratory Tests Test 09/11/18 21:37 09/12/18 04:10 Range/Units White Blood Count 5.6 4.4 4.3-11.0 10^3/uL Red Blood Count 4.96 4.33 L 4.35-5.85 10^6/uL Hemoglobin 11.1 L 9.9 L 11.5-16.0 G/DL Hematocrit 36 32 L 35-52 % Mean Corpuscular Volume 73 L 74 L 80-99 FL Mean Corpuscular Hemoglobin 22 L 23 L 25-34 PG Mean Corpuscular Hemoglobin Concent 31 L 31 L 32-36 G/DL Red Cell Distribution Width 18.2 H 17.8 H 10.0-14.5 % Platelet Count 261 194 130-400 10^3/uL Mean Platelet Volume 10.0 9.9 7.4-10.4 FL Neutrophils (%) (Auto) 51 45 42-75 % Lymphocytes (%) (Auto) 33 41 12-44 % Monocytes (%) (Auto) 10 8 0-12 % Eosinophils (%) (Auto) 6 5 0-10 % Basophils (%) (Auto) 1 1 0-10 % Neutrophils # (Auto) 2.9 1.9 1.8-7.8 X 10^3 Lymphocytes # (Auto) 1.8 1.8 1.0-4.0 X 10^3 Monocytes # (Auto) 0.5 0.3 0.0-1.0 X 10^3 Eosinophils # (Auto) 0.3 0.2 0.0-0.3 10^3/uL Basophils # (Auto) 0.1 0.1 0.0-0.1 10^3/uL Prothrombin Time 13.9 12.2-14.7 SEC INR Comment 1.0 0.8-1.4 Activated Partial Thromboplast Time 32 24-35 SEC Sodium Level 142 142 135-145 MMOL/L Potassium Level 4.1 3.8 3.6-5.0 MMOL/L Chloride Level 110 H 112 H 98-107 MMOL/L Carbon Dioxide Level 21 22 21-32 MMOL/L Anion Gap 11 8 5-14 MMOL/L Blood Urea Nitrogen 16 16 7-18 MG/DL Creatinine 0.98 0.87 0.60-1.30 MG/DL Estimat Glomerular Filtration Rate 54 > 60 BUN/Creatinine Ratio 16 18 Glucose Level 126 H 128 H 70-105 MG/DL Calcium Level 10.0 9.2 8.5-10.1 MG/DL Corrected Calcium 9.8 9.6 8.5-10.1 MG/DL Magnesium Level 2.7 H 1.8-2.4 MG/DL Total Bilirubin 0.4 0.4 0.1-1.0 MG/DL Aspartate Amino Transf (AST/SGOT) 16 11 5-34 U/L Alanine Aminotransferase (ALT/SGPT) 12 11 0-55 U/L Alkaline Phosphatase 101 82 40-136 U/L Myoglobin 21.2 10.0-92.0 NG/ML Troponin I < 0.028 < 0.028 <0.028 NG/ML B-Type Natriuretic Peptide 91.1 <100.0 PG/ML Total Protein 7.6 6.2 L 6.4-8.2 GM/DL Albumin 4.2 3.5 3.2-4.5 GM/DL Lipase 56 8-78 U/L Triglycerides Level 78 <150 MG/DL Cholesterol Level 161 < 200 MG/DL LDL Cholesterol Direct 104 1-129 MG/DL VLDL Cholesterol 16 5-40 MG/DL HDL Cholesterol 47 40-60 MG/DL Physical Exam Vital Signs Vital Signs - First Documented 09/12/18 00:25 Pulse Ox 96 Capillary Refill : Less Than 3 Seconds Height, Weight, BMI Height: 5'6.00" Weight: 168lbs. 9.0oz. 76.493140qt; 27.2 BMI Method:Stated General Appearance: No Apparent Distress, WD/WN Eyes: Bilateral Eye Normal Inspection, Bilateral Eye PERRL, Bilateral Eye EOMI HEENT: PERRL/EOMI, TMs Normal, Normal ENT Inspection, Pharynx Normal Neck: Full Range of Motion, Normal Inspection, Non Tender, Supple, Carotid Bruit Respiratory: Chest Non Tender, Lungs Clear, Normal Breath Sounds, No Accessory Muscle Use, No Respiratory Distress Cardiovascular: Regular Rate, Rhythm, No Edema, No Gallop, No JVD, Normal Peripheral Pulses, Systolic Murmur Gastrointestinal: Normal Bowel Sounds, No Organomegaly, No Pulsatile Mass, Non Tender, Soft Back: Normal Inspection, No CVA Tenderness, No Vertebral Tenderness Extremity: Normal Capillary Refill, Normal Inspection, Normal Range of Motion, Non Tender, No Calf Tenderness, No Pedal Edema Neurologic/Psychiatric: Alert, Oriented x3, No Motor/Sensory Deficits, Normal Mood/Affect Skin: Normal Color, Warm/Dry Lymphatic: No Adenopathy A/P-Cardiology Admission Diagnosis Chest pain Paroxysmal atrial fibrillation Sinus node dysfunction Permanent pacemaker Assessment/Plan Chest pain, resembling angina. EKG and cardiac enzymes were negative, currently she is chest pain-free, had breakfast this morning, planning to evaluate stress test tomorrow morning. Paroxysmal atrial fibrillation, currently in sinus rhythm, maintained on amiodarone. Continue to monitor History of TIA, resolved. Unable to tolerate oral anticoagulation secondary to GI bleed. Sinus node dysfunction, had a pause up to 7 seconds in May 2016, had dual- chamber pacemaker implanted in November 2017. Continue to monitor History of closure with a surgical clip to the left atrial appendage, done by Dr. Longo at in December 2017. Not requiring oral anticoagulation [id number] score of 6, yearly risk of stroke without oral anticoagulation is 9.8 percent. Intolerant to Eliquis in the past. Intolerant to Xarelto secondary to rectal bleeding requiring blood transfusion, maintained without oral anticoagulation due to the closure of the left atrial appendage with surgical clip in December 2017. Anemia, worse, maintained on vitamin B-12 replacement. Continue to monitor H&H Labile hypertension, restart home medication monitor blood pressure Patient has multiple risk factors for underlying coronary artery disease, stress test done February 2016 revealed no ischemia or infarct, planning to repeat stress test. COPD/obstructive sleep apnea using C Pap at night Intolerance to multiple medications, intolerance to AFIA inhibitor secondary to cough History of GI bleed, peptic ulcer disease-continue to monitor. Continue on Protonix Depression/ anxiety, recommend follow-up with primary care physician. History of rectal stricture, rectal prolapse, history of lower GI bleed in the past, recent rectal bleeding with internal hemorrhoid. History of IBS History of cholecystectomy Carotid artery stenosis, mild, continue to monitor Degenerative joint disease, having knee pain, scheduled for steroid injection Clinical Quality Measures AMI/AHF: ASA po Prior to arrival: No (REFUSAL OF BLOOD THINNERS) DVT/VTE Risk/Contraindication: Risk Factor Score Per Nursin RFS Level Per Nursing on Admit: 2=Moderate BEBETO HOLLINGSWORTH MD September 12, 2018 08:28
[2018-09-12] MEDS ORDERED: REGADENOSON 0.4 MG/5 ML SYR (LEXISCAN) IV ONE (08:30)
[2018-09-12] MEDS: PANTOPRAZOLE 40 MG (PROTONIX) TAB PO SCH (08:52)
[2018-09-12] MEDS: AMIODARONE 200 MG (CORDARONE) TAB PO SCH (08:52)
[2018-09-12] MEDS: LOSARTAN 100 MG (COZAAR) TABLET PO SCH (08:53)
[2018-09-12] MEDS: amLODIPine 5 MG (NORVASC) TAB PO SCH (08:53)
[2018-09-12] MEDS: NITROGLYCERIN 2% OINT 1 GM UNIT DOSE PACKET TOP SCH (08:53)
[2018-09-12] MEDS ORDERED: ONDA4TAB11 PO (10:33)
[2018-09-12] MEDS ORDERED: BIMA2.5D4 OU (10:33)
[2018-09-12] MEDS ORDERED: LACT10SO33 PO (10:33)
[2018-09-12] MEDS ORDERED: GUAI1CAP51 PO (10:33)
--- NOTE | 2018-09-12 10:38 | NUR ---
SPOKE WITH THE PATIENT ABOUT HER MEDICATIONS. WE WENT OVER THE EXT MED HX TOGETHER AND SHE VERIFIED HOW SHE TAKES EACH MEDICATION. HER AMIODARONE IS WRITTEN TO TAKE 1 TAB DAILY HOWEVER SHE STATES SHE ONLY TAKES 1/2 TAB AND THIS IS WHY IT IS PAST DUE FOR REFILL. SHE IS ADAMANT THAT SHE TAKES THE IRBESARTAN 300MG DAILY HOWEVER IT HAS NOT BEEN FILLED SINCE 12-02-17 FOR 30 TABLETS PER [facility]. I LEFT IT ON THE MED REC AT THIS TIME AND NOTED THE PAST DUE FILL DATE.
[2018-09-12 12:00] VITALS: BP 123/65
--- NOTE | 2018-09-12 14:10 | NUR ---
Pastoral care visit.
--- NOTE | 2018-09-12 14:22 | History & Physical-Hospitalist ---
History of Present Illness HPI/Chief Complaint The patient's an 83-year-old white female known to me from previous contacts. She presented yesterday with a pressure sensation in her central substernal area. She reported that she initially thought this to be GI/heartburn. She took some drrl-lyb-teimhyu materials from that got no relief. When it lasted for 2 hours and there was some radiation to the back she decided she should come to the emergency room and did so. She was subsequently admitted for additional workup and rule out Date Seen 09/12/18 Time Seen by a Provider: 14:15 Attending Physician Nati Barker MD PCP Martinez Soni DO Referring Physician Date of Admission September 11, 2018 at 22:45 Home Medications & Allergies Home Medications Reviewed patient Home Medication Reconciliation performed by pharmacy medication reconciliations bench repair technician and/or nursing. Patients Allergies have been reviewed. Allergies Allergies Coded Allergies levofloxacin (Unverified Allergy, Mild, RASH, 07/20/18) Penicillins (Verified Allergy, Unknown, 07/20/18) Shellfish (Verified Allergy, Unknown, 07/20/18) Sulfa (Sulfonamide Antibiotics) (Verified Allergy, Unknown, 07/20/18) azithromycin (Unverified Allergy, Unknown, ITCHING, 07/20/18) cephalexin (Verified Allergy, Unknown, 07/20/18) erythromycin base (Verified Allergy, Unknown, 07/20/18) furosemide (Verified Allergy, Unknown, 07/20/18) nitrofurantoin (Unverified Allergy, Unknown, ITCHING/"THICK TONGUE", 07/20/18) tetracycline (Verified Allergy, Unknown, 07/20/18) Uncoded Allergies TAPE ( Allergy, Unknown, 07/26/07) Past Rhytrtg-Ywtepk-Fvkwwd Hx Patient Social History Marrital Status: Employed/Student: retired Alcohol Use: Denies Use Recreational Drug Use: No Smoking Status: Never a Smoker 2nd Hand Smoke Exposure: No Physical Abuse Screen: No Sexual Abuse: No Recent Foreign Travel: No Contact w/other who traveled: No Recent Hopitalizations: No Recent Infectious Disease Expo: No Immunizations Up To Date Tetanus Booster (TDap): Less than 5yrs Pediatric: No Date of Pneumonia Vaccine: October 03, 2016 Date of Influenza Vaccine: Feb 08, 2012 Seasonal Allergies Seasonal Allergies: Yes Past Medical History Surgeries: Abdominal, Appendectomy, Cardiac, Gallbladder, Hysterectomy, Pacemaker, Rectal, Thyroidectomy, Tonsillectomy Currently Using CPAP: Yes Currently Using BIPAP: No Cardiac: Atrial Fibrillation, Cardiomyopathy, Chronic Edema/Swelling, Coronary Artery Disease, Hypertension 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: No Hysterectomy Genitourinary: Bladder Infection Gastrointestinal: Gastrointestinal Bleed, Hemorrhoids, Irritable Bowel Musculoskeletal: Osteoporosis, Arthritis, Fractures Endocrine: Hypothyroidsim, Diabetes, Non-Insulin dep HEENT: Glaucoma Hearing Impairment: Hard of Hearing Psychosocial: Anxiety, Depression History of Blood Disorders: Yes (ANEMIA) Adverse Reaction to Blood Lieberman: No Family History Family history: Hypertension 03 FATHER, Onset:40's - 50 09 BROTHER, Onset:40's - 50 History of drug abuse 03 FATHER, Onset:20's - 25 Stroke 03 FATHER, Onset:60 years & older No Pertinent Family Hx Review of Systems Constitutional: see HPI EENTM: no symptoms reported Respiratory: no symptoms reported Cardiovascular: see HPI Gastrointestinal: heartburn, other (previous laparoscopic procedure for hiatal hernia.) Genitourinary: no symptoms reported Musculoskeletal: no symptoms reported Skin: no symptoms reported Psychiatric/Neurological: No Symptoms Reported Physical Exam Physical Exam Vital Signs Vital Signs - First Documented 09/12/18 00:25 Pulse Ox 96 Capillary Refill : Less Than 3 Seconds Height, Weight, BMI Height: 5'6.00" Weight: 168lbs. 9.0oz. [id number]; 27.2 BMI Method:Stated General Appearance: No Apparent Distress, WD/WN Eyes: Bilateral Eye Normal Inspection HEENT: Normal ENT Inspection Neck: Full Range of Motion, Normal Inspection, Non Tender Respiratory: Chest Non Tender, Lungs Clear, Normal Breath Sounds, No Accessory Muscle Use, No Respiratory Distress Cardiovascular: Regular Rate, Rhythm, No Edema, No Gallop, No JVD, No Murmur, Normal Peripheral Pulses Gastrointestinal: Normal Bowel Sounds, No Organomegaly, No Pulsatile Mass, Non Tender, Soft Back: Normal Inspection Extremity: Normal Capillary Refill, Normal Inspection, Normal Range of Motion, Non Tender, No Calf Tenderness, No Pedal Edema Neurologic/Psychiatric: Alert, Oriented x3, No Motor/Sensory Deficits, Normal Mood/Affect Skin: Normal Color, Warm/Dry Lymphatic: No Adenopathy Results Results/Procedures Labs Laboratory Tests 09/11/18 21:37 09/12/18 04:10 Patient resulted labs reviewed. Assessment/Plan Admission Diagnosis Atypical chest pain. 2.A. fib Clinical Quality Measures AMI/AHF: ASA po Prior to arrival: No (REFUSAL OF BLOOD THINNERS) DVT/VTE Risk/Contraindication: Risk Factor Score Per Nursin RFS Level Per Nursing on Admit: 2=Moderate HERMANN BUTLER MD September 12, 2018 14:22
[2018-09-12] MEDS ORDERED: ANTACID SUSP 30 ML UDC (MYLANTA) PO PRN (15:45)
[2018-09-12 16:00] VITALS: BP 123/60
[2018-09-12] MEDS: ACETAMINOPHEN 500 MG TAB (TYLENOL) PO PRN ×2 (17:49→23:52)
[2018-09-12 20:00] VITALS: BP 126/58
[2018-09-12] MEDS ORDERED: ATORVASTATIN 40 MG (LIPITOR) TABLET PO SCH (21:00)
[2018-09-13 00:10] VITALS: BP 150/70
[2018-09-13 04:00] VITALS: BP 129/72
[2018-09-13 05:13] LABS: HEMOGLOBIN 10.5 G/DL (11.5-16.0); MEAN PLATELET VOLUME 10.1 FL (7.4-10.4); RED CELL DISTRIBUTION WIDTH 18.4 % (10.0-14.5); WHITE BLOOD COUNT 4.7 10^3/uL (4.3-11.0)
[2018-09-13] MEDS: LEVOTHYROXINE 50 MCG (LEVOTHROID) TAB PO SCH (05:26)
[2018-09-13 05:28] LABS: ALBUMIN 3.7 GM/DL (3.2-4.5); BILIRUBIN,TOTAL 0.4 MG/DL (0.1-1.0); CALCIUM 9.4 MG/DL (8.5-10.1); CREATININE SERUM 0.99 MG/DL (0.60-1.30); POTASSIUM 3.8 MMOL/L (3.6-5.0); TOTAL PROTEIN 6.7 GM/DL (6.4-8.2)
[2018-09-13] MEDS ORDERED: CATHETER FLUSH 10 ML SYR IV PRN (07:00)
[2018-09-13] MEDS ORDERED: REGADENOSON 0.4 MG/5 ML SYR (LEXISCAN) IV ONE (07:42)
[2018-09-13 07:49] VITALS: BP 120/85
[2018-09-13 07:56] VITALS: BP 136/86
[2018-09-13 08:00] VITALS: BP 159/72
[2018-09-13] MEDS: LOSARTAN 100 MG (COZAAR) TABLET PO SCH (09:32)
[2018-09-13] MEDS: PANTOPRAZOLE 40 MG (PROTONIX) TAB PO SCH (09:32)
[2018-09-13] MEDS: AMIODARONE 200 MG (CORDARONE) TAB PO SCH (09:32)
[2018-09-13] MEDS: NITROGLYCERIN 2% OINT 1 GM UNIT DOSE PACKET TOP SCH (09:32)
[2018-09-13] MEDS: amLODIPine 5 MG (NORVASC) TAB PO SCH (09:32)
--- NOTE | 2018-09-13 09:39 | Cardiology Progress Note ---
Subjective Date Seen by Provider: September 13, 2018 Time Seen by Provider: 07:50 Subjective/Events-last exam Patient down for stress test. Denies any chest pain or dyspnea, denies any dizziness. Objective-Cardiology Exam Last Set of Vital Signs Vital Signs 09/13/18 09/13/18 04:00 07:56 Temp 98.1 Pulse 60 Resp 18 B/P (MAP) 136/86 (103) Pulse Ox 98 O2 Delivery Room Air Capillary Refill : Less Than 3 Seconds I&O Intake and Output 09/13/18 00:00 Intake Total 1450 ml Balance 1450 ml Intake Oral 1450 ml # Voids 8 # Bowel Movements 4 Daily Weight Change No No No General: Alert, Oriented X3, Cooperative HEENT: Atraumatic, PERRLA Neck: Supple, No JVD, No Thyromegaly Lungs: Clear to Auscultation, Normal Air Movement Heart: Regular Rate, Normal S1, Normal S2, No Murmurs Abdomen: Normal Bowel Sounds, Soft, No Tenderness, No Hepatosplenomegaly, No Masses Extremities: No Clubbing, No Cyanosis, No Edema, Normal Pulses, No Tenderness/ Swelling Skin: No Rashes, No Breakdown, No Significant Lesion Neuro: Normal Gait, Normal Speech, Strength at 5/5 X4 Ext, Normal Tone, Sensation Intact Psych/Mental Status: Mental Status NL, Mood NL Results Lab Laboratory Tests 09/13/18 04:30 A/P-Cardiology Admission Diagnosis Chest pain Paroxysmal atrial fibrillation Sinus node dysfunction Permanent pacemaker Assessment/Plan Chest pain, resembling angina. EKG and cardiac enzymes were negative, currently she is chest pain-free, undergoing stress test this morning. Paroxysmal atrial fibrillation, currently in sinus rhythm, maintained on amiodarone. Continue to monitor History of TIA, resolved. Unable to tolerate oral anticoagulation secondary to GI bleed. Sinus node dysfunction, had a pause up to 7 seconds in May 2016, had dual- chamber pacemaker implanted in November 2017. Continue to monitor History of closure with a surgical clip to the left atrial appendage, done by Dr. Longo at in December 2017. Not requiring oral anticoagulation [id number] score of 6, yearly risk of stroke without oral anticoagulation is 9.8 percent. Intolerant to Eliquis in the past. Intolerant to Xarelto secondary to rectal bleeding requiring blood transfusion, maintained without oral anticoagulation due to the closure of the left atrial appendage with surgical clip in December 2017. Anemia, worse, maintained on vitamin B-12 replacement. Continue to monitor H&H Labile hypertension, restart home medication monitor blood pressure Patient has multiple risk factors for underlying coronary artery disease, stress test done February 2016 revealed no ischemia or infarct, undergoing repeat stress test this morning. COPD/obstructive sleep apnea using C Pap at night Intolerance to multiple medications, intolerance to AFIA inhibitor secondary to cough History of GI bleed, peptic ulcer disease-continue to monitor. Continue on Protonix Depression/ anxiety, recommend follow-up with primary care physician. History of rectal stricture, rectal prolapse, history of lower GI bleed in the past, recent rectal bleeding with internal hemorrhoid. History of IBS History of cholecystectomy Carotid artery stenosis, mild, continue to monitor Degenerative joint disease, having knee pain, scheduled for steroid injection Clinical Quality Measures AMI/AHF: ASA po Prior to arrival: No (REFUSAL OF BLOOD THINNERS) DVT/VTE Risk/Contraindication: Risk Factor Score Per Nursin RFS Level Per Nursing on Admit: 2=Moderate AVIS HINES September 13, 2018 09:39
[2018-09-13 12:00] VITALS: BP 138/68
[2018-09-13] MEDS ORDERED: METO-387 PO (12:26)
--- NOTE | 2018-09-13 12:28 | Cardiology Progress Note ---
Subjective Date Seen by Provider: September 13, 2018 Time Seen by Provider: 12:27 Subjective/Events-last exam patient is laying down in bed, feeling better today. Denied any chest pain. Review of Systems General: No Chills, No Night Sweats, No Fatigue, No Malaise, No Appetite, No Other HEENT: No Head Aches, No Visual Changes, No Eye Pain, No Ear Pain, No Dysphasia , No Sinus Congestion, No Post Nasal Drip, No Sore Throat, No Other Pulmonary: No Dyspnea, No Cough, No Pleuritic Chest Pain, No Other Cardiovascular: No: Chest Pain, Palpitations, Orthopnea, Paroxysmal Noc. Dyspnea, Edema, Lt Headedness, Other Objective-Cardiology Exam Last Set of Vital Signs Vital Signs 09/13/18 09/13/18 08:00 09:10 Temp 98.4 Pulse 66 Resp 18 B/P (MAP) 159/72 (101) Pulse Ox 98 O2 Delivery Room Air Capillary Refill : Less Than 3 Seconds I&O Intake and Output 09/12/18 23:59 Intake Total 1450 ml Balance 1450 ml Intake Oral 1450 ml # Voids 8 # Bowel Movements 4 Daily Weight Change No No No General: Alert, Oriented X3, Cooperative HEENT: Atraumatic, PERRLA Neck: Supple, No JVD, No Thyromegaly Lungs: Clear to Auscultation, Normal Air Movement Heart: Regular Rate, Normal S1, Normal S2, No Murmurs Abdomen: Normal Bowel Sounds, Soft, No Tenderness, No Hepatosplenomegaly, No Masses Extremities: No Clubbing, No Cyanosis, No Edema, Normal Pulses, No Tenderness/ Swelling Skin: No Rashes, No Breakdown, No Significant Lesion Neuro: Normal Gait, Normal Speech, Strength at 5/5 X4 Ext, Normal Tone, Sensation Intact Psych/Mental Status: Mental Status NL, Mood NL Results Lab Laboratory Tests 09/13/18 04:30 A/P-Cardiology Admission Diagnosis Chest pain Paroxysmal atrial fibrillation Sinus node dysfunction Permanent pacemaker Assessment/Plan Chest pain, resembling angina. EKG and cardiac enzymes were negative, currently she is chest pain-free, stress test showed no ischemia or infarction with normal LV function. Okay for discharge and follow-up as an outpatient Chronic Paroxysmal atrial fibrillation, currently in sinus rhythm, maintained on amiodarone. Continue to monitor History of TIA, resolved. Unable to tolerate oral anticoagulation secondary to GI bleed. Sinus node dysfunction, had a pause up to 7 seconds in May 2016, had dual- chamber pacemaker implanted in November 2017. Continue to monitor History of closure with a surgical clip to the left atrial appendage, done by Dr. Longo at in December 2017. Not requiring oral anticoagulation [id number] score of 6, yearly risk of stroke without oral anticoagulation is 9.8 percent. Intolerant to Eliquis in the past. Intolerant to Xarelto secondary to rectal bleeding requiring blood transfusion, maintained without oral anticoagulation due to the closure of the left atrial appendage with surgical clip in December 2017. Anemia, worse, maintained on vitamin B-12 replacement. Continue to monitor H&H Labile hypertension, restart home medication monitor blood pressure COPD/obstructive sleep apnea using C Pap at night Intolerance to multiple medications, intolerance to AFIA inhibitor secondary to cough History of GI bleed, peptic ulcer disease-continue to monitor. Continue on Protonix Depression/ anxiety, recommend follow-up with primary care physician. History of rectal stricture, rectal prolapse, history of lower GI bleed in the past, recent rectal bleeding with internal hemorrhoid. History of IBS History of cholecystectomy Carotid artery stenosis, mild, continue to monitor Degenerative joint disease, having knee pain, scheduled for steroid injection Clinical Quality Measures AMI/AHF: ASA po Prior to arrival: No (REFUSAL OF BLOOD THINNERS) DVT/VTE Risk/Contraindication: Risk Factor Score Per Nursin RFS Level Per Nursing on Admit: 2=Moderate BEBETO HOLLINGSWORTH MD September 13, 2018 12:28
--- NOTE | 2018-09-13 13:42 | STRESS TEST ---
DATE OF SERVICE: 09/13/2018 LEXISCAN MYOVIEW STRESS TEST REPORT REFERRING PHYSICIANS: 1. Nati Barker MD 2. Dr. Soni. INDICATION: Chest pain. Baseline heart rate is 62. Baseline blood pressure 120/83. Baseline EKG is sinus rhythm with no ischemic changes. In summary, the patient was injected with 10.87 mCi of technetium-99 Myoview and the resting images were obtained. Then, the patient received 0.4 mg of Lexiscan followed by 32.9 mCi of technetium-99 Myoview. Throughout the test, the patient is asymptomatic. The resting and stress images were reviewed and compared in the short axis, horizontal long axis, and vertical long axis views. Review of the images showed good radiotracer uptake with no significant ischemia or infarction. SSS is 2, SDS 2, TID value 1.05. On the gated images, the left ventricle appeared to be in normal size with normal contractility. Calculated ejection fraction is 63%. IN CONCLUSION: 1. The patient tolerated Lexiscan well. 2. No ischemia or infarction on SPECT images. 3. Normal left ventricular size with normal contractility. Calculated ejection fraction is 63%. Job ID: [id number] DocumentID: [id number] Dictated Date: 09/13/2018 12:07:19 Archery Instructor Date: 09/13/2018 13:42:44 Dictated By: BEBETO HOLLINGSWORTH MD
--- NOTE | 2018-09-13 13:51 | Progress Note-Hospitalist ---
Progress Note Progress Notes/Assess & Plan Date Seen 09/13/18 Time Seen by Provider: 13:49 Assessment & Plan The patient reports no further chest pain. Dr. Tamayo has concluded his cardiology workup. He feels she is ready for discharge. Additional studies will be conducted as an outpatient. Physical exam: She is alert and oriented. Lungs are clear to auscultation. CV is regular. Abdomen is soft. Ankles show no pedal edema. Impression: Chest pain. 2.history of paroxysmal atrial fibrillation. 3.anti- coagulation intolerance. 4.dual-chamber permanent pacemaker. Plan: Discharge. See discharge sequence for medications and routines. HERMANN BUTLER MD September 13, 2018 13:51
--- NOTE | 2018-09-13 13:54 | Discharge Inst-Simple/Standard ---
Discharge Inst-Standard Patient Instructions/Follow Up Plan of Care/Instructions/FU: Medications and routines as listed in the discharge sequence. Follow up appointments with Dr. Tamayo and Dr. Soni. Activity as Tolerated: Yes Discharge Diet: No Restrictions Copy Copies To 1: ESTHER SONI RODNEY K MD September 13, 2018 13:54
--- NOTE | 2018-09-13 14:42 | NUR ---
GARFIELD MCKEON demonstrates understanding of discharge instructions and accurately returns instructions upon questioning. Copy of Post-Discharge Instructions and Medication Discharge Instructions given to PATIENT AND CAREGIVER. GARFIELD MCKEON is able to manage continuing needs after discharge. Patients belongings returned to PATIENT AND CAREGIVER. Skin dry and intact; no breakdown noted. Patient discharged from [facility] on 09/13/18 at 14:20. GARFIELD MCKEON left floor via WHEELCHAIR, accompanied by CAREGIVER AND STAFF.
== END 2018-09-13 13:52 | disposition home or self-care (01) ==
LOC: EDUNIT# 21:33 → ER 21:34 → 4TH 22:45
PROVIDERS: ADMIT Internal Medicine; ATTEND Internal Medicine
DX: R07.9 Chest pain, unspecified (principal); I48.0 Paroxysmal atrial fibrillation; Z95.0 Presence of cardiac pacemaker; I49.5 Sick sinus syndrome; Z86.73 Personal history of transient ischemic attack (TIA), and cerebral infarction without residual deficits; D64.9 Anemia, unspecified; I10 Essential (primary) hypertension; Z66 Do not resuscitate; J44.9 Chronic obstructive pulmonary disease, unspecified; G47.33 Obstructive sleep apnea (adult) (pediatric); F32.9 Major depressive disorder, single episode, unspecified; F41.9 Anxiety disorder, unspecified; K58.9 Irritable bowel syndrome, unspecified; I65.29 Occlusion and stenosis of unspecified carotid artery; M19.91 Primary osteoarthritis, unspecified site; I42.9 Cardiomyopathy, unspecified; I25.10 Atherosclerotic heart disease of native coronary artery without angina pectoris; M81.0 Age-related osteoporosis without current pathological fracture; H40.9 Unspecified glaucoma; H91.90 Unspecified hearing loss, unspecified ear; Z88.2 Allergy status to sulfonamides; Z79.899 Other long term (current) drug therapy; Z87.11 Personal history of peptic ulcer disease; Z88.0 Allergy status to penicillin; Z87.19 Personal history of other diseases of the digestive system; Z88.1 Allergy status to other antibiotic agents
CPT/HCPCS: 36415; 71045; 78452; 80053; 80061; 83690; 83735; 83874; 83880; 84484; 85025; 85027; 85610; 85730; 93005; 93017; 93041; 93306

== ENCOUNTER 2018-11-02 09:30 | Outpatient (CLI) | payer MEDICARE, MEDICAID ==
[~2018-11-02] VITALS: Ht 167.6 cm; Wt 78.5 kg
[~2018-11-02 09:30] MED LIST changes: +BIMA2.5D4 OU; +GUAI1CAP51 PO; +LACT10SO33 PO; +ONDA4TAB11 PO
== END 2018-11-02 10:31 ==
LOC: PREOP 09:30
PROVIDERS: ATTEND Surgery
DX: Z01.818 Encounter for other preprocedural examination (principal)

== ENCOUNTER 2018-11-13 22:41 | Emergency (ER) | payer MEDICARE, MEDICAID ==
[~2018-11-13] VITALS: Ht 167.6 cm; Wt 77.6 kg
--- NOTE | 2018-11-13 23:04 | NUR ---
Dr. Prabhakar at the bedside assessing the patient.
[2018-11-13 23:05] VITALS: BP 148/74
--- NOTE | 2018-11-13 23:08 | ED General ---
General Chief Complaint: Oral/Throat Problems Stated Complaint: DIFFICULTY SWALLOWING Nursing Triage Note: Patient states she had an egd completed at [facility] on wednesday. She advises today that she has been experiencing difficulty swallowing. Nursing Sepsis Screen: No Definite Risk Source of Information: Patient Exam Limitations: No Limitations History of Present Illness Date Seen by Provider: Nov 13, 2018 Time Seen by Provider: 22:43 Initial Comments This 83-year-old woman presents to the emergency room via EMS with complaints of sensation of dysphagia. She states she has difficulty swallowing yet she was able to eat mashed potatoes, pulled pork, and [employer] this evening without difficulty. She took Benadryl 50 mg tonight when she started feeling the sensation of dysphagia. She had an EGD performed for the same symptoms by Dr. Shepherd on November 08. Hiatal hernia was diagnosed. Patient seems mildly anxious. Allergies and Home Medications Allergies Coded Allergies: levofloxacin (Unverified Allergy, Mild, RASH, 11/13/18) Penicillins (Verified Allergy, Unknown, 11/13/18) Shellfish (Verified Allergy, Unknown, 11/13/18) Sulfa (Sulfonamide Antibiotics) (Verified Allergy, Unknown, 11/13/18) azithromycin (Unverified Allergy, Unknown, ITCHING, 11/13/18) cephalexin (Verified Allergy, Unknown, 11/13/18) erythromycin base (Verified Allergy, Unknown, 11/13/18) furosemide (Verified Allergy, Unknown, 11/13/18) nitrofurantoin (Unverified Allergy, Unknown, ITCHING/"THICK TONGUE", 11/13/18) tetracycline (Verified Allergy, Unknown, 11/13/18) Uncoded Allergies: TAPE (Allergy, Unknown, 07/26/07) Home Medications Acetaminophen 500 Mg Tablet, 500-1,000 MG PO Q4H PRN for PAIN-MILD, (Reported) Alprazolam 0.25 Mg Tablet, 0.5-1 TAB PO Q8H PRN for ANXIETY, (Reported) Amiodarone HCl 200 Mg Tablet, 100 MG PO DAILY, (Reported) TAKES 1/2 (200MG) TABLET Amlodipine Besylate 5 Mg Tablet, 5 MG PO DAILY, (Reported) Bimatoprost 2.5 Ml Drops, 1 DROP OU HS, (Reported) Cyanocobalamin 1,000 Mcg/Ml Inj, 1,000 MCG INJ MONTHLY, (Reported) Docusate Sodium 100 Mg Capsule, 100 MG PO DAILY, (Reported) Fexofenadine HCl 180 Mg Tablet, 180 MG PO DAILY PRN for ALLERGIES, (Reported) Guaifenesin/Dextromethorphan 1 Each Capsule, 1 CAP PO DAILY PRN for ALLERGIES, (Reported) Irbesartan 300 Mg Tablet, 300 MG PO DAILY, (Reported) LAST FILLED #30 7--18 Lactulose 10 Gm/15 Ml Solution, 15 ML PO DAILY PRN for CONSTIPATION-3RD LINE, (Reported) Levothyroxine Sodium 50 Mcg Tablet, 50 MCG PO DAILY, (Reported) Omeprazole 40 Mg Capsule.dr, 40 MG PO HS, (Reported) Ondansetron 4 Mg Tab.rapdis, 4 MG PO Q4H PRN for NAUSEA/VOMITING-1ST LINE, (Reported) Polyethylene Glycol 3350 17 Gm Powd.pack, 17 GM PO DAILY PRN for CONSTIPATION- 2ND LINE, (Reported) Potassium Chloride 10 Meq Tab.er.prt, 10 MEQ PO DAILY, (Reported) Temazepam 15 Mg Capsule, 15 MG PO HS PRN for INSOMNIA, (Reported) Trimethoprim 100 Mg Tablet, 100 MG PO HS, (Reported) Patient Home Medication List Home Medication List Reviewed: Yes Review of Systems Review of Systems Constitutional: no symptoms reported EENTM: no symptoms reported Respiratory: no symptoms reported Cardiovascular: no symptoms reported Gastrointestinal: see HPI Genitourinary: no symptoms reported : No Musculoskeletal: no symptoms reported Skin: no symptoms reported Psychiatric/Neurological: See HPI Hematologic/Lymphatic: No Symptoms Reported Immunological/Allergic: no symptoms reported Past Abfskfr-Rvjxap-Aeccdj Hx Patient Social History Alcohol Use: Denies Use Recreational Drug Use: No Smoking Status: Never a Smoker 2nd Hand Smoke Exposure: No Recent Foreign Travel: No Contact w/Someone Who Travel: No Recent Infectious Disease Expo: No Recent Hopitalizations: No Immunizations Up To Date Tetanus Booster (TDap): Less than 5yrs PED Vaccines UTD: No Date of Pneumonia Vaccine: October 03, 2016 Date of Influenza Vaccine: Feb 08, 2012 Seasonal Allergies Seasonal Allergies: Yes Past Medical History Surgeries: Yes (LAP NIESSEN, ATRIAL CLIPPING) Abdominal, Appendectomy, Cardiac, Gallbladder, Hysterectomy, Pacemaker, Rectal, Thyroidectomy, Tonsillectomy Respiratory: Yes Asthma, Sleep Apnea Currently Using CPAP: Yes Currently Using BIPAP: No Cardiac: Yes (SINUS NODE DYSFUNCTION, ATRIAL CLIPPING) Atrial Fibrillation, Cardiomyopathy, Chronic Edema/Swelling, Coronary Artery Disease, Hypertension Neurological: No 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 Disorders: No MINERAL SURVEYOR History: Hysterectomy Genitourinary: Yes Bladder Infection Gastrointestinal: Yes (dysphagia) Gastrointestinal Bleed, Hemorrhoids, Irritable Bowel Musculoskeletal: Yes (OSTEOARTHRITIS, FX RIGHT LOWER LEG, DISLOCATED RIGHT SHOULDER) Osteoporosis, Arthritis, Fractures Endocrine: Yes (THYROIDECTOMY; DIET CONTROLLED DIABETES) Hypothyroidsim, Diabetes, Non-Insulin dep HEENT: Yes Glaucoma Hearing Impairment: Hard of Hearing Cancer: No Psychosocial: Yes Anxiety, Depression Integumentary: No Blood Disorders: Yes (ANEMIA) Adverse Reaction/Blood Tranf: No Family Medical History Family history: Hypertension 03 FATHER, Onset:40's - 50 09 BROTHER, Onset:40's - 50 History of drug abuse 03 FATHER, Onset:20's - 25 Stroke 03 FATHER, Onset:60 years & older No Pertinent Family Hx Physical Exam Vital Signs Vital Signs - First Documented 11/13/18 22:52 Temp 97.9 Pulse 60 Resp 14 B/P (MAP) 148/74 (98) Pulse Ox 98 O2 Delivery Room Air Capillary Refill : Less Than 3 Seconds Height, Weight, BMI Height: 5'6.00" Weight: 171lbs. 0.0oz. 77.002457bv; 27.9 BMI Method:Stated General Appearance: WD/WN, Anxious HEENT: PERRL/EOMI, Normal ENT Inspection, Pharynx Normal Neck: Normal Inspection Respiratory: Lungs Clear, Normal Breath Sounds, No Accessory Muscle Use Cardiovascular: Regular Rate, Rhythm, No Edema, No Murmur Gastrointestinal: Non Tender, Soft Extremity: Normal Inspection, No Pedal Edema Neurologic/Psychiatric: Alert, Oriented x3, No Motor/Sensory Deficits, overlock collar setter II- XII Norm as Tested, Other (Slightly anxious) Progress/Results/Core Measures Suspected Sepsis Recent Fever Within 48 Hours: No Infection Criteria Present: None New/Unexplained Altered Menta: No Sepsis Screen: No Definite Risk SIRS Temperature:97.9 Pulse: 60 Respiratory Rate: 14 Blood Pressure 148 /74 Mean: 98 Results/Orders Vital Signs/I&O Capillary Refill : Less Than 3 Seconds Progress Note : Progress Note Chart was reviewed. This appears to be a chronic problem. Patient did not have difficulty eating solid foods tonight. I observed her drink several sips of water without any difficulty. She was given reassurance and discharged home with instructions to follow-up with Dr. Shepherd. Departure Impression Primary Impression: Dysphagia Qualified Codes: R13.10 - Dysphagia, unspecified Additional Impression: Anxiety Disposition: 01 HOME, SELF-CARE Condition: Improved Departure-Patient Inst. Decision time for Depature: 23:05 Referrals: ESTHER DANIELLE DO (PCP/Family) Primary Care Physician Patient Instructions: Dysphagia (DC) Add. Discharge Instructions: Consume liquids and soft foods. Avoid crunchy foods that need significant chewing and lumpy foods such as meat. Follow-up with your primary care provider and Dr. Shepherd as soon as possible. Return to emergency room if symptoms worsen. All discharge instructions reviewed with patient and/or family. Voiced understanding. Copy Copies To 1: GAMALIEL SHEPHERD JOSHUA T MD Nov 13, 2018 23:08
== END 2018-11-13 23:16 | disposition home or self-care (01) ==
LOC: EDUNIT# 22:41 → ER 22:43
DX: R13.10 Dysphagia, unspecified (principal); F41.9 Anxiety disorder, unspecified; G47.30 Sleep apnea, unspecified; J45.909 Unspecified asthma, uncomplicated; I10 Essential (primary) hypertension; I25.10 Atherosclerotic heart disease of native coronary artery without angina pectoris; I48.91 Unspecified atrial fibrillation; I42.9 Cardiomyopathy, unspecified; M81.0 Age-related osteoporosis without current pathological fracture; E03.9 Hypothyroidism, unspecified; E11.9 Type 2 diabetes mellitus without complications; F32.9 Major depressive disorder, single episode, unspecified; Z87.81 Personal history of (healed) traumatic fracture; Z87.19 Personal history of other diseases of the digestive system; Z88.1 Allergy status to other antibiotic agents; Z88.0 Allergy status to penicillin; Z88.2 Allergy status to sulfonamides; Z88.8 Allergy status to other drugs, medicaments and biological substances; Z90.49 Acquired absence of other specified parts of digestive tract; Z90.710 Acquired absence of both cervix and uterus; Z95.0 Presence of cardiac pacemaker; Z90.89 Acquired absence of other organs; Z82.49 Family history of ischemic heart disease and other diseases of the circulatory system
CPT/HCPCS: 99283

== ENCOUNTER → 2019-03-20 | Outpatient (CLI) | payer MEDICARE, MEDICAID ==
[~2019-03-20] MED LIST changes: +OMEP20CA13 PO
--- NOTE | 2019-03-20 12:31 | Diagnostic Imaging Report ---
INDICATION: Dysphagia. TECHNIQUE: The study was performed in conjunction with Speech Pathology. Video fluoroscopy was performed during the swallowing of barium in multiple consistencies. A total of 1 minute and 16 seconds of fluoroscopic time was utilized. FINDINGS: The patient ingested thin liquid as well as applesauce, banana, ground meat, and cracker consistencies. The oral phase is unremarkable. There is normal epiglottic tilt and laryngeal elevation. No laryngeal penetration or aspiration was observed. No vallecular or pyriform sinus residue was detected. IMPRESSION: Unremarkable modified barium swallow study. Dictated by: Dictated on workstation # [id number]
== END ==
LOC: RAD 10:11
PROVIDERS: ATTEND Surgery
DX: R13.10 Dysphagia, unspecified (principal)
CPT/HCPCS: 74230

== ENCOUNTER 2019-03-26 10:24 | Emergency (ER) | payer MEDICARE, MEDICAID ==
[~2019-03-26] VITALS: Ht 167 cm; Wt 80.0 kg
--- NOTE | 2019-03-26 10:39 | ED Fall/Injury ---
General Chief Complaint: Chest Wall Stated Complaint: FALL/L SIDE PAIN Source: patient, caregiver Exam Limitations: no limitations History of Present Illness Date Seen by Provider: Mar 26, 2019 Time Seen by Provider: 10:25 Initial Comments Patient presents to ER by private conveyance with her caregiver and chief complaint that yesterday morning she stood up and her knees gave out from underneath her and she fell onto her knees right knee is having some pain. She landed on her left side. She was checked out by EMS but declined to come to the ER to be checked out because she was not having any significant pain. Today she is having worse pain in her left ribs especially takes be deep breath in. She is on Levaquin outpatient for the past couple days for a upper respiratory tract infection. She has a history of atrial fibrillation but is not on blood thinners. She has a atrial clip. She has a pacemaker and she's having some tenderness around it as well. She says the pain is anteriorly under her left breast in the midclavicular line. The chest pain is reproducible to direct palpation. She's having no fever nausea vomiting chills sweats dysuria, discharge, abdominal pain. Allergies and Home Medications Allergies Coded Allergies: levofloxacin (Unverified Allergy, Mild, RASH, 11/13/18) Penicillins (Verified Allergy, Unknown, 11/13/18) Shellfish (Verified Allergy, Unknown, 11/13/18) Sulfa (Sulfonamide Antibiotics) (Verified Allergy, Unknown, 11/13/18) azithromycin (Unverified Allergy, Unknown, ITCHING, 11/13/18) cephalexin (Verified Allergy, Unknown, 11/13/18) erythromycin base (Verified Allergy, Unknown, 11/13/18) furosemide (Verified Allergy, Unknown, 11/13/18) nitrofurantoin (Unverified Allergy, Unknown, ITCHING/"THICK TONGUE", 11/13/18) tetracycline (Verified Allergy, Unknown, 11/13/18) Uncoded Allergies: TAPE (Allergy, Unknown, 07/26/07) Home Medications Acetaminophen 500 Mg Tablet, 500-1,000 MG PO Q4H PRN for PAIN-MILD, (Reported) Alprazolam 0.25 Mg Tablet, 0.5-1 TAB PO Q8H PRN for ANXIETY, (Reported) Amiodarone HCl 200 Mg Tablet, 100 MG PO DAILY, (Reported) TAKES 1/2 (200MG) TABLET Amlodipine Besylate 5 Mg Tablet, 5 MG PO DAILY, (Reported) Bimatoprost 2.5 Ml Drops, 1 DROP OU HS, (Reported) Cyanocobalamin 1,000 Mcg/Ml Inj, 1,000 MCG INJ MONTHLY, (Reported) Docusate Sodium 100 Mg Capsule, 100 MG PO DAILY, (Reported) Fexofenadine HCl 180 Mg Tablet, 180 MG PO DAILY PRN for ALLERGIES, (Reported) Guaifenesin/Dextromethorphan 1 Each Capsule, 1 CAP PO DAILY PRN for ALLERGIES, (Reported) Irbesartan 300 Mg Tablet, 300 MG PO DAILY, (Reported) LAST FILLED #30 12-02-17 Lactulose 10 Gm/15 Ml Solution, 15 ML PO DAILY PRN for CONSTIPATION-3RD LINE, (Reported) Levothyroxine Sodium 50 Mcg Tablet, 50 MCG PO DAILY, (Reported) Omeprazole 40 Mg Capsule.dr, 40 MG PO HS, (Reported) Ondansetron 4 Mg Tab.rapdis, 4 MG PO Q4H PRN for NAUSEA/VOMITING-1ST LINE, (Reported) Polyethylene Glycol 3350 17 Gm Powd.pack, 17 GM PO DAILY PRN for CONSTIPATION- 2ND LINE, (Reported) Potassium Chloride 10 Meq Tab.er.prt, 10 MEQ PO DAILY, (Reported) Temazepam 15 Mg Capsule, 15 MG PO HS PRN for INSOMNIA, (Reported) Trimethoprim 100 Mg Tablet, 100 MG PO HS, (Reported) Patient Home Medication List Home Medication List Reviewed: Yes Review of Systems Review of Systems Constitutional: No chills, No diaphoresis Eyes: Denies Blindness Ears, Nose, Mouth, Throat: denies ear pain, denies ear discharge Respiratory: No cough, No short of breath Cardiovascular: see HPI, chest pain; No edema Gastrointestinal: No abdominal pain, No constipation, No diarrhea, No nausea Genitourinary: No discharge, No dysuria Musculoskeletal: No back pain, No joint pain Past Ifhntab-Zuwtha-Taxsrf Hx Patient Social History Alcohol Use: Denies Use Recreational Drug Use: No Smoking Status: Never a Smoker 2nd Hand Smoke Exposure: No Recent Foreign Travel: No Contact w/Someone Who Travel: No Recent Hopitalizations: No Immunizations Up To Date Tetanus Booster (TDap): Less than 5yrs PED Vaccines UTD: No Date of Pneumonia Vaccine: October 03, 2016 Date of Influenza Vaccine: Feb 08, 2012 Seasonal Allergies Seasonal Allergies: Yes Past Medical History Surgeries: Yes (LAP NIESSEN, ATRIAL CLIPPING) Abdominal, Appendectomy, Cardiac, Gallbladder, Hysterectomy, Pacemaker, Rectal, Thyroidectomy, Tonsillectomy Respiratory: Yes Asthma, Sleep Apnea Currently Using CPAP: Yes Currently Using BIPAP: No Cardiac: Yes (SINUS NODE DYSFUNCTION, ATRIAL CLIPPING) Atrial Fibrillation, Cardiomyopathy, Chronic Edema/Swelling, Coronary Artery Disease, Hypertension Neurological: No 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 Disorders: No 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 Genitourinary: Yes Bladder Infection Gastrointestinal: Yes (dysphagia) Gastrointestinal Bleed, Hemorrhoids, Irritable Bowel Musculoskeletal: Yes (OSTEOARTHRITIS, FX RIGHT LOWER LEG, DISLOCATED RIGHT SHOULDER) Osteoporosis, Arthritis, Fractures Endocrine: Yes (THYROIDECTOMY; DIET CONTROLLED DIABETES) Hypothyroidsim, Diabetes, Non-Insulin dep HEENT: Yes Glaucoma Hearing Impairment: Hard of Hearing Cancer: No Psychosocial: Yes Anxiety, Depression Integumentary: No Blood Disorders: Yes (ANEMIA) Adverse Reaction/Blood Tranf: No Family Medical History Family history: Hypertension 03 FATHER, Onset:40's - 50 09 BROTHER, Onset:40's - 50 History of drug abuse 03 FATHER, Onset:20's - 25 Stroke 03 FATHER, Onset:60 years & older No Pertinent Family Hx Physical Exam Vital Signs Vital Signs - First Documented 03/26/19 10:28 Temp 37.0 Pulse 76 Resp 16 B/P (MAP) 141/101 (114) Pulse Ox 97 O2 Delivery Room Air Capillary Refill : Height, Weight, BMI Height: 5'6.00" Weight: 171lbs. 0.0oz. 77.132422co; 27.9 BMI Method:Stated General Appearance: WD/WN, no apparent distress HEENT: PERRL/EOMI, normal ENT inspection Neck: full range of motion, normal inspection Cardiovascular: normal peripheral pulses, regular rate, rhythm Respiratory: No chest non-tender; lungs clear, normal breath sounds, no respiratory distress, no accessory muscle use, other (left anterior, mid clavicular line ribs 7 through 9 tender to palpation without deformity ecchymoses or hematoma) Peripheral Pulses: 2+ Radial Pulses (R), 2+ Radial Pulses (L) Gastrointestinal: normal bowel sounds, non tender, soft Back: normal inspection, no vertebral tenderness Extremities: normal range of motion, normal inspection, normal capillary refill, other (right knee tender to palpation especially over the anterior tibial plateau. Non-ballotable patella. No effusion erythema or ecchymoses. No deformity.) Neurologic/Psychiatric: no motor/sensory deficits, alert, normal mood/affect, oriented x 3 Skin: normal color, warm/dry [place] Coma Score Best Eye Response: (4) Open Spontaneously Best Verbal Response: (5) Oriented Best Motor Response: (6) Obeys Commands Tanya Total: 15 Progress/Results/Core Measures Results/Orders My Orders Orders - DENA BLAKE Chest 1 View, Ap/Pa Only (03/26/19 10:36) Ribs, Left 2-3 Views (03/26/19 10:36) Knee, Right, 3 Views (03/26/19 10:36) Vital Signs/I&O 03/26/19 10:28 Temp 37.0 Pulse 76 Resp 16 B/P (MAP) 141/101 (114) Pulse Ox 97 O2 Delivery Room Air Progress Progress Note : Time: 11:48 Progress Note X-ray focusing on the left ribs and right knee. Patient is declining anything for pain. Diagnostic Imaging Diagonstic Imaging: Xray Plain Films/CT/US/NM/MRI: knee (right three-view) Comments NAME: GARFIELD MCKEON MED REC#: [id number] PT STATUS: REG ER : 1935 PHYSICIAN: DENA BLAKE MD ADMIT DATE: 03/26/19/ER Draft POSDate of Exam:03/26/19 CHEST 1 VIEW, AP/PA ONLY PATIENT HISTORY: Pain in the left chest. TECHNIQUE: Frontal view of the chest. COMPARISON: 09/11/2018 FINDINGS: There is mild cardiomegaly. Pacemaker leads appear stable. No focal consolidation is seen. There is no pleural effusion or pneumothorax. No displaced rib fractures are seen. IMPRESSION: No acute pulmonary abnormality is seen. Dictated on workstation # [id number] Dict: 03/26/19 1129 Trans: 03/26/19 1144 [facility] [id number] Interpreted by: SACHI GAN MD Electronically signed by: Reviewed: Reviewed by Me Diagonstic Imaging: Xray Plain Films/CT/US/NM/MRI: chest (left ribs 2 view) Comments NAME: GARFIELD MCKEON MED REC#: [id number] PT STATUS: REG ER : 1935 PHYSICIAN: DENA BLAKE MD ADMIT DATE: 03/26/19/ER Signed POSDate of Exam:03/26/19 RIBS, LEFT 2-3 VIEWS INDICATION: Fall with left rib pain. TIME OF EXAM: 10:56 AM Multiple views left ribs were obtained. No definite displaced rib fracture is identified. No parenchymal contusion, effusion or pneumothorax is seen. Cardiac pacemaker overlies left chest. IMPRESSION: No displaced rib fracture is detected. Dictated by: Dictated on workstation # [id number] Dict: 03/26/19 1132 Trans: 03/26/19 1147 [facility] [id number] Interpreted by: MARY TAPIA MD Electronically signed by: MARY TAPIA MD 03/26/19 1147 Reviewed: Reviewed by Me Diagonstic Imaging: Xray Plain Films/CT/US/NM/MRI: chest Comments NAME: GARFIELD MCKEON MED REC#: [id number] PT STATUS: REG ER : 1935 PHYSICIAN: DENA BLAKE MD ADMIT DATE: 03/26/19/ER Draft POSDate of Exam:03/26/19 CHEST 1 VIEW, AP/PA ONLY PATIENT HISTORY: Pain in the left chest. TECHNIQUE: Frontal view of the chest. COMPARISON: 09/11/2018 FINDINGS: There is mild cardiomegaly. Pacemaker leads appear stable. No focal consolidation is seen. There is no pleural effusion or pneumothorax. No displaced rib fractures are seen. IMPRESSION: No acute pulmonary abnormality is seen. Dictated on workstation # [id number] Dict: 03/26/19 1129 Trans: 03/26/19 1144 [facility] [id number] Interpreted by: SACHI GAN MD Electronically signed by: Reviewed: Reviewed by Me Departure Impression Primary Impression: Fall Qualified Codes: W19.XXXA - Unspecified fall, initial encounter Additional Impressions: Chest wall pain Traumatic ecchymosis of rib Qualified Codes: S20.20XA - Contusion of thorax, unspecified, initial encounter Disposition: 01 HOME, SELF-CARE Condition: Stable Departure-Patient Inst. Decision time for Depature: 11:51 Referrals: ESTHER DANIELLE DO (PCP/Family) Primary Care Physician Patient Instructions: Bruised Rib (DC) Add. Discharge Instructions: Ice pack 20 minutes on every 4 hours while awake today. Heating pads can be helpful as well as topical creams such as Aspercreme, icy hot etc. Drink plenty of fluids and use Tylenol 1000 mg every 8 hours as needed for pain. Follow-up with primary care as needed for continued management. All discharge instructions reviewed with patient and/or family. Voiced unders tanding. DENA BLAKE Mar 26, 2019 10:39 POS
--- NOTE | 2019-03-26 11:15 | NUR ---
WARM BLANKET GIVEN.
--- NOTE | 2019-03-26 11:36 | Diagnostic Imaging Report ---
INDICATION: Fall with left rib pain. TIME OF EXAM: 10:56 AM Multiple views left ribs were obtained. No definite displaced rib fracture is identified. No parenchymal contusion, effusion or pneumothorax is seen. Cardiac pacemaker overlies left chest. IMPRESSION: No displaced rib fracture is detected. Dictated by: Dictated on workstation # [id number]
--- NOTE | 2019-03-26 11:37 | Diagnostic Imaging Report ---
INDICATION: Fall with right knee pain. TIME OF EXAM: 10:59 AM 3 views right knee were obtained. Alignment is normal. Joint spaces are fairly well-maintained apart from very mild medial compartmental narrowing. There is also patellofemoral degenerative change. No fracture, dislocation or effusion is seen. IMPRESSION: Mild degenerative changes. No acute bony abnormality is detected. Dictated by: Dictated on workstation # [id number]
--- NOTE | 2019-03-26 11:44 | Diagnostic Imaging Report ---
PATIENT HISTORY: Pain in the left chest. TECHNIQUE: Frontal view of the chest. COMPARISON: 09/11/2018 FINDINGS: There is mild cardiomegaly. Pacemaker leads appear stable. No focal consolidation is seen. There is no pleural effusion or pneumothorax. No displaced rib fractures are seen. IMPRESSION: No acute pulmonary abnormality is seen. Dictated by: Dictated on workstation # [id number]
--- NOTE | 2019-03-26 11:48 | NUR ---
PT NOTIFIED WAS LOOKING OVER HER X-RAY AND WOULD BE IN TO SEE HER SOON.
[2019-03-26 12:10] VITALS: BP 141/101
== END 2019-03-26 12:10 | disposition home or self-care (01) ==
LOC: EDUNIT# 10:24 → ER 10:25
DX: S20.20XA Contusion of thorax, unspecified, initial encounter (principal); I10 Essential (primary) hypertension; E11.9 Type 2 diabetes mellitus without complications; I48.91 Unspecified atrial fibrillation; I25.10 Atherosclerotic heart disease of native coronary artery without angina pectoris; J45.909 Unspecified asthma, uncomplicated; F41.9 Anxiety disorder, unspecified; F32.9 Major depressive disorder, single episode, unspecified; D64.9 Anemia, unspecified; E03.9 Hypothyroidism, unspecified; G47.30 Sleep apnea, unspecified; K58.9 Irritable bowel syndrome, unspecified; R40.2142 Coma scale, eyes open, spontaneous, at arrival to emergency department; R40.2252 Coma scale, best verbal response, oriented, at arrival to emergency department; R40.2362 Coma scale, best motor response, obeys commands, at arrival to emergency department; Z99.89 Dependence on other enabling machines and devices; Z90.49 Acquired absence of other specified parts of digestive tract; Z90.710 Acquired absence of both cervix and uterus; Z95.0 Presence of cardiac pacemaker; Z88.1 Allergy status to other antibiotic agents; Z88.0 Allergy status to penicillin; Z88.2 Allergy status to sulfonamides; Z88.8 Allergy status to other drugs, medicaments and biological substances; Z82.49 Family history of ischemic heart disease and other diseases of the circulatory system; W18.39XA Other fall on same level, initial encounter
CPT/HCPCS: 71045; 71100; 73562

== ENCOUNTER 2019-07-01 17:16 | Emergency (ER) | payer MEDICARE, MEDICAID ==
[~2019-07-01] VITALS: Ht 170 cm; Wt 86.0 kg
[~2019-07-01 17:16] MED LIST changes: +IRBE300T17 PO; -IRBE300T18 PO; -METO-387 PO; -MONT10TA24 PO; +MONT10TA26 PO; +MTP25TSR PO; -OMEP20CA13 PO; +OMEP20CA18 PO; +OMEP40CA27 PO
--- NOTE | 2019-07-01 18:30 | NUR ---
POC GLUCOSE IS 118. DR WAS INFORMED.
[2019-07-01 18:37] LABS: BILIRUBIN,URINE NEGATIVE (NEGATIVE); CLARITY,URINE CLEAR; COLOR,URINE YELLOW; GLUCOSE, URINE (UA) NEGATIVE (NEGATIVE); KETONES,URINE NEGATIVE (NEGATIVE); LEUKOCYTE ESTERASE ,URINE TRACE (NEGATIVE); NITRITE,URINE NEGATIVE (NEGATIVE); PROTEIN,URINE NEGATIVE (NEGATIVE)
--- NOTE | 2019-07-01 18:37 | ED General ---
General Chief Complaint: Dizziness/Syncope Stated Complaint: HIGH BLOOD SUGAR Source of Information: Patient Exam Limitations: No Limitations History of Present Illness Date Seen by Provider: Jul 01, 2019 Time Seen by Provider: 18:19 Initial Comments Patient resents to ER by EMS because she felt "Swoony headed" and she says this is not unusual for her but today was worse than normal. She checked her blood sugar with her glucometer that she rarely uses and it read high multiple times. EMS got 168 and nursing staff locally got 118. Patient says it does not her blood sugar she might have a bladder infection. She's had a little dysuria lately so a urine was collected . She denies any fever cough chills shortness of breath. She says a few weeks ago she had bronchitis but she thinks she got over that. Allergies and Home Medications Allergies Coded Allergies: levofloxacin (Unverified Allergy, Mild, RASH, 11/13/18) Penicillins (Verified Allergy, Unknown, 11/13/18) Shellfish (Verified Allergy, Unknown, 11/13/18) Sulfa (Sulfonamide Antibiotics) (Verified Allergy, Unknown, 11/13/18) azithromycin (Unverified Allergy, Unknown, ITCHING, 11/13/18) cephalexin (Verified Allergy, Unknown, 11/13/18) erythromycin base (Verified Allergy, Unknown, 11/13/18) furosemide (Verified Allergy, Unknown, 11/13/18) nitrofurantoin (Unverified Allergy, Unknown, ITCHING/"THICK TONGUE", 11/13/18) tetracycline (Verified Allergy, Unknown, 11/13/18) Uncoded Allergies: TAPE (Allergy, Unknown, 07/26/07) Home Medications Acetaminophen 500 Mg Tablet, 500-1,000 MG PO Q4H PRN for PAIN-MILD, (Reported) Alprazolam 0.25 Mg Tablet, 0.5-1 TAB PO Q8H PRN for ANXIETY, (Reported) Amiodarone HCl 200 Mg Tablet, 100 MG PO DAILY, (Reported) TAKES 1/2 (200MG) TABLET Amlodipine Besylate 5 Mg Tablet, 5 MG PO DAILY, (Reported) Bimatoprost 2.5 Ml Drops, 1 DROP OU HS, (Reported) Cyanocobalamin 1,000 Mcg/Ml Inj, 1,000 MCG INJ MONTHLY, (Reported) Docusate Sodium 100 Mg Capsule, 100 MG PO DAILY, (Reported) Fexofenadine HCl 180 Mg Tablet, 180 MG PO DAILY PRN for ALLERGIES, (Reported) Guaifenesin/Dextromethorphan 1 Each Capsule, 1 CAP PO DAILY PRN for ALLERGIES, (Reported) Irbesartan 300 Mg Tablet, 300 MG PO DAILY, (Reported) LAST FILLED #30 7-26-18 Lactulose 10 Gm/15 Ml Solution, 15 ML PO DAILY PRN for CONSTIPATION-3RD LINE, (Reported) Levothyroxine Sodium 50 Mcg Tablet, 50 MCG PO DAILY, (Reported) Omeprazole 40 Mg Capsule.dr, 40 MG PO HS, (Reported) Ondansetron 4 Mg Tab.rapdis, 4 MG PO Q4H PRN for NAUSEA/VOMITING-1ST LINE, (Reported) Ondansetron 4 Mg Tab.rapdis, 4 MG PO Q6H PRN for NAUSEA/VOMITING Prescribed by: DENA BLAKE on 07/01/19 1840 Polyethylene Glycol 3350 17 Gm Powd.pack, 17 GM PO DAILY PRN for CONSTIPATION- 2ND LINE, (Reported) Potassium Chloride 10 Meq Tab.er.prt, 10 MEQ PO DAILY, (Reported) Temazepam 15 Mg Capsule, 15 MG PO HS PRN for INSOMNIA, (Reported) Trimethoprim 100 Mg Tablet, 100 MG PO HS, (Reported) Patient Home Medication List Home Medication List Reviewed: Yes Review of Systems Review of Systems Constitutional: No chills, No diaphoresis, No fever, No malaise EENTM: No ear discharge, No hearing loss Respiratory: No cough, No phlegm, No short of breath Cardiovascular: No chest pain, No edema Gastrointestinal: No abdominal pain, No constipation, No diarrhea, No nausea Genitourinary: No discharge, No dysuria Musculoskeletal: No back pain, No joint pain All Other Systems Reviewed Negative Unless Noted: Yes Past Ypquiwk-Iqhrxq-Jznjlq Hx Patient Social History Alcohol Use: Denies Use Recreational Drug Use: No Smoking Status: Never a Smoker 2nd Hand Smoke Exposure: No Recent Hopitalizations: No Immunizations Up To Date Tetanus Booster (TDap): Less than 5yrs PED Vaccines UTD: No Date of Pneumonia Vaccine: October 03, 2016 Date of Influenza Vaccine: Feb 08, 2012 Seasonal Allergies Seasonal Allergies: Yes Past Medical History Surgeries: Yes (LAP NIESSEN, ATRIAL CLIPPING) Abdominal, Appendectomy, Cardiac, Gallbladder, Hysterectomy, Pacemaker, Rectal, Thyroidectomy, Tonsillectomy Respiratory: Yes Asthma, Sleep Apnea Currently Using CPAP: Yes Currently Using BIPAP: No Cardiac: Yes (SINUS NODE DYSFUNCTION, ATRIAL CLIPPING) Atrial Fibrillation, Cardiomyopathy, Chronic Edema/Swelling, Coronary Artery Disease, Hypertension Neurological: No 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 Genitourinary: Yes Bladder Infection Gastrointestinal: Yes (dysphagia) Gastrointestinal Bleed, Hemorrhoids, Irritable Bowel Musculoskeletal: Yes (OSTEOARTHRITIS, FX RIGHT LOWER LEG, DISLOCATED RIGHT SHOULDER) Osteoporosis, Arthritis, Fractures Endocrine: Yes (THYROIDECTOMY; DIET CONTROLLED DIABETES) Hypothyroidsim, Diabetes, Non-Insulin dep HEENT: Yes Glaucoma Hearing Impairment: Hard of Hearing Cancer: No Psychosocial: Yes Anxiety, Depression Integumentary: No Blood Disorders: Yes (ANEMIA) Adverse Reaction/Blood Tranf: No Family Medical History Family history: Hypertension 03 FATHER, Onset:40's - 50 09 BROTHER, Onset:40's - 50 History of drug abuse 03 FATHER, Onset:20's - 25 Stroke 03 FATHER, Onset:60 years & older No Pertinent Family Hx Physical Exam Vital Signs Vital Signs - First Documented 07/01/19 18:40 Temp 36.4 Pulse 60 Resp 18 B/P (MAP) 144/74 (97) Capillary Refill : Height, Weight, BMI Height: 5'6.00" Weight: 171lbs. 0.0oz. 77.601764pw; 28.00 BMI Method:Stated General Appearance: No Apparent Distress, WD/WN Eyes: Bilateral Eye Normal Inspection, Bilateral Eye PERRL, Bilateral Eye EOMI HEENT: PERRL/EOMI, TMs Normal, Normal ENT Inspection, Pharynx Normal, Moist Mucous Membranes Neck: Full Range of Motion, Normal Inspection, Non Tender, Supple Respiratory: Lungs Clear, Normal Breath Sounds, No Accessory Muscle Use, No Respiratory Distress Cardiovascular: Regular Rate, Rhythm, No Edema, Normal Peripheral Pulses Gastrointestinal: Normal Bowel Sounds, Non Tender, Soft Extremity: Normal Capillary Refill, Normal Inspection, Normal Range of Motion Neurologic/Psychiatric: Alert, Oriented x3, No Motor/Sensory Deficits, Normal Mood/Affect, fruit shipper II-XII Norm as Tested Skin: Normal Color, Warm/Dry Progress/Results/Core Measures Suspected Sepsis SIRS Temperature: Pulse: Respiratory Rate: Blood Pressure / Mean: Results/Orders Lab Results Laboratory Tests Test 07/01/19 18:15 07/01/19 18:28 Range/Units Urine Color YELLOW Urine Clarity CLEAR Urine pH 6.0 5-9 Urine Specific [place] >=1.030 1.016-1.022 Urine Protein NEGATIVE NEGATIVE Urine Glucose (UA) NEGATIVE NEGATIVE Urine Ketones NEGATIVE NEGATIVE Urine Nitrite NEGATIVE NEGATIVE Urine Bilirubin NEGATIVE NEGATIVE Urine Urobilinogen 0.2 < = 1.0 MG/DL Urine Leukocyte Esterase TRACE H NEGATIVE Urine RBC (Auto) NEGATIVE NEGATIVE Urine RBC NONE /HPF Urine WBC 5-10 H /HPF Urine Squamous Epithelial Cells 2-5 /HPF Urine Crystals NONE /LPF Urine Bacteria FEW H /HPF Urine Casts NONE /LPF Urine Mucus NEGATIVE /LPF Urine Culture Indicated YES Glucometer 118 H 70-110 MG/DL My Orders Orders - DENA BLAKE Ua Culture If Indicated (07/01/19 18:31) Urine Culture (07/01/19 18:15) Vital Signs/I&O 07/01/19 18:40 Temp 36.4 Pulse 60 Resp 18 B/P (MAP) 144/74 (97) Capillary Refill : Progress Note #1: Time: 18:38 Progress Note The patient is capable producing a dizzy array of positive review of systems if asked however upon further questioning and careful examination these do not appear to be acute concerns. Patient has concerned that her blood sugar was high which does not seem to be the case and we have encouraged her to either have her glucometer calibrated or obtain a new one. We have encouraged her to follow up with her primary care to have it checked against their glucometer. She says her A1c has always been low and her doctor has never been concerned about her blood sugars. She does have some mild mucoid effusion which may explain a mild labyri nthitis. She says she has chronic postnasal drip but does not appear to have any acute, significant infection. Her lungs are diminished but clear and her vital signs are aseptic. The urinalysis has been obtained. Progress Note #2: Time: 19:12 Progress Note We reviewed her extensive list of antibiotic allergies. Most of them seem to be adverse effects unrelated to allergies. She is comfortable taking ciprofloxacin and while was not my first choice for broad-spectrum coverage her symptoms are slight so we'll start there. Departure Impression Primary Impression: Labyrinthitis of both ears Additional Impression: UTI (urinary tract infection) Qualified Codes: N30.00 - Acute cystitis without hematuria Disposition: HOME, SELF-CARE Condition: Stable Departure-Patient Inst. Decision time for Depature: 19:13 Referrals: ESTHER DANIELLE DO (PCP/Family) Primary Care Physician Patient Instructions: Acute Cystitis (DC), Labyrinthitis Add. Discharge Instructions: I would encourage Flonase 1 puff to each nostril daily for the next 2 weeks to help control the symptoms of labyrinthitis. If you have nausea you may take one tablet of Zofran every 6 hours as needed for nausea or vomiting. Ciprofloxacin 1 tablet twice a day for the next 7 days. If you experience passing out, chest pain, shortness of breath or other worrisome symptoms then you should return to the nearest ER. All discharge instructions reviewed with patient and/or family. Voiced understanding. Scripts Ciprofloxacin HCl (Ciprofloxacin HCl) 500 Mg Tablet 500 MG PO BID, #14 TAB Prov: DENA BLAKE 07/01/19 Ondansetron (Ondansetron Odt) 4 Mg Tab.rapdis 4 MG PO Q6H PRN for NAUSEA/VOMITING, #8 TAB 0 Refills Prov: DENA BLAKE 07/01/19 DENA BLAKE Jul 01, 2019 18:37
[2019-07-01] MEDS ORDERED: ONDA4TAB11 PO (18:40)
[2019-07-01 19:01] LABS: BACTERIA,URINE FEW /HPF
[2019-07-01] MEDS ORDERED: CIPROFLOXACIN 500 MG (CIPRO) TABLET PO STA (19:14)
[2019-07-01] MEDS ORDERED: CIPR500T4 PO (19:14)
[2019-07-01 19:30] VITALS: BP 138/87
== END 2019-07-01 19:30 | disposition home or self-care (01) ==
LOC: EDUNIT# 17:16 → ER 17:17
DX: H83.03 Labyrinthitis, bilateral (principal); N39.0 Urinary tract infection, site not specified; I10 Essential (primary) hypertension; I25.10 Atherosclerotic heart disease of native coronary artery without angina pectoris; I48.91 Unspecified atrial fibrillation; J45.909 Unspecified asthma, uncomplicated; E03.9 Hypothyroidism, unspecified; F41.9 Anxiety disorder, unspecified; F32.9 Major depressive disorder, single episode, unspecified; G47.30 Sleep apnea, unspecified; Z99.89 Dependence on other enabling machines and devices; Z88.1 Allergy status to other antibiotic agents; Z88.0 Allergy status to penicillin; Z88.2 Allergy status to sulfonamides; Z88.8 Allergy status to other drugs, medicaments and biological substances; Z95.0 Presence of cardiac pacemaker
CPT/HCPCS: 81000; 82962; 87088

== ENCOUNTER → 2019-09-25 | Outpatient (CLI) | payer MEDICARE, MEDICAID ==
[~2019-09-25] MED LIST changes: +CIPR500T4 PO
--- NOTE | 2019-09-25 13:41 | Diagnostic Imaging Report ---
INDICATION: Urinary frequency. TECHNIQUE: Limited Real-time grayscale images were obtained over the bladder in various projections. FINDINGS: The prevoid bladder measures 9.4 x 5.5 x 6.7 cm. This has a volume of 180 mL. The post void bladder volume was 0. A left ureteral jet was visualized but the right was not. IMPRESSION: Unremarkable sonographic appearance of the bladder. Dictated by: Dictated on workstation # [id number]
== END ==
LOC: RAD 12:49
PROVIDERS: ATTEND Internal Medicine
DX: R35.0 Frequency of micturition (principal)
CPT/HCPCS: 76857

== ENCOUNTER 2020-03-15 05:26 | Outpatient (RCR) | payer MEDICARE, MEDICAID ==
[~2020-03-15] VITALS: Ht 167 cm; Wt 79.5 kg
[~2020-03-15 05:26] MED LIST changes: -ALPR0.254 PO; -AMIO200T4 PO; +AMIO200T6 PO; +AMLO-250 PO; -AMLO5TAB9 PO; -ENAL10TA PO; +ENAL10TA16 PO; -PANT40TA3 PO; +PANT40TA52 PO
== END 2020-03-15 12:01 | disposition home or self-care (01) ==
LOC: PREOP 05:26
PROVIDERS: ATTEND Surgery
DX: Z01.812 Encounter for preprocedural laboratory examination (principal); Z20.828 Contact with and (suspected) exposure to other viral communicable diseases
CPT/HCPCS: 87635

== ENCOUNTER 2020-03-19 08:30 | Day surgery (SDC) | payer MEDICARE, MEDICAID ==
[~2020-03-19] VITALS: Ht 167 cm; Wt 79.5 kg
[2020-03-19] MEDS ORDERED: LACTATED RINGERS 1,000 ML IV ONE (08:38)
[2020-03-19 08:45] VITALS: BP 131/82
[2020-03-19] MEDS ORDERED: LACTATED RINGERS 1,000 ML IV PRN (08:45)
[2020-03-19] MEDS ORDERED: HURRICAINE EXT TUBE (BENZOCAINE) XX PRN (08:45)
[2020-03-19] MEDS ORDERED: HURRICAINE EXT TUBE (BENZOCAINE) ONE (09:46)
[2020-03-19] MEDS ORDERED: PROPOFOL INJECTION 50 ML IV ONE (10:18)
[2020-03-19] MEDS ORDERED: MIDAZOLAM 2 MG/2 ML (VERSED) VIAL ONE (10:19)
[2020-03-19 11:05] VITALS: BP 107/60
--- NOTE | 2020-03-19 11:06 | Progress Note-Post Operative ---
Post-Operative Progess Note Surgeon (s)/Foundation Relations Manager (s) Surgeon GAMALIEL ACOSTA DO Foundation Relations Manager: na Pre-Operative Diagnosis dysphagia Post-Operative Diagnosis paraesophageal hernia Procedure & Operative Findings Date of Procedure 03/19/20 Procedure Performed/Findings egd c biopsies Anesthesia Type per PROCEDURE RN Estimated Blood Loss Estimated blood loss (mL): none Specimens/Packing Specimens Removed antrum, GE junction GAMALIEL ACOSTA DO Mar 19, 2020 11:06
--- NOTE | 2020-03-19 11:08 | Discharge Inst-Simple/Standard ---
Discharge Inst-Standard Patient Instructions/Follow Up Plan of Care/Instructions/FU: 2 weeks Cora Activity as Tolerated: Yes Discharge Diet: Regular Diet GAMALIEL ACOSTA DO Mar 19, 2020 11:08
[2020-03-19 11:10] VITALS: BP 115/61
[2020-03-19 11:35] VITALS: BP 139/102
--- NOTE | 2020-03-19 12:43 | Anesthesia-General Post-Op ---
MAC Patient Condition Mental Status/LOC: Same as Preop Cardiovascular: Satisfactory Nausea/Vomiting: Absent Respiratory: Satisfactory Pain: Controlled Complications: Absent Post Op Complications Complications None Follow Up Care/Instructions Patient Instructions None needed. Anesthesiology Discharge Order Discharge Order Patient is doing well, no complaints, stable vital signs, no apparent adverse anesthesia problems. No complications reported per nursing. ERIN NORIEGA CRNA Mar 19, 2020 12:43
--- NOTE | 2020-03-19 17:11 | OPERATIVE REPORT ---
DATE OF SERVICE: 03/19/2020 PREOPERATIVE DIAGNOSIS: Dysphagia. POSTOPERATIVE DIAGNOSIS: Paraesophageal hernia. PROCEDURE PERFORMED: EGD with biopsies. SURGEON: Gamaliel Shepherd DO ANESTHESIA: Per EKG MONITOR. ESTIMATED BLOOD LOSS: None. COMPLICATIONS: None. SPECIMENS: Antrum, GE junction. INDICATIONS: The patient is an 85-year-old female with dysphagia symptoms. She understands risks and benefits of the procedure and wished to proceed with the procedure. Consent was signed in the chart. DESCRIPTION OF PROCEDURE: The patient was taken to the endoscopy suite and placed in a left lateral recumbent position. Timeout was performed. Scope was inserted in the mouth, down the esophagus, stomach and into the duodenum without difficulty. There were no polyps, masses or ulcerations within the duodenum. Scope was slowly retracted back into the stomach where it was further insufflated. No polyps, masses or ulcerations. Biopsy of the antrum was obtained. Scope was retroflexed noting a paraesophageal hernia. No other pathology noted. Scope was returned to its normal position, slowly withdrawn to distal esophagus. No polyps, masses or ulcerations. Biopsy of the GE junction was obtained. Scope was then slowly retracted back until completely removed. The patient tolerated procedure well without any complications. She was taken to the recovery room in a stable condition. RECOMMENDATIONS: The patient will need a followup in office in about 2 to 3 weeks to discuss pathology results and symptoms. Further recommendations pending symptoms and biopsy results. Job ID: [id number] DocumentID: [id number] Dictated Date: 03/19/2020 11:10:54 Customer Support Representative Date: 03/19/2020 17:11:31 Dictated By: GAMALIEL SHEPHERD DO
== END 2020-03-19 12:15 | disposition home or self-care (01) ==
LOC: ENDO 08:30
PROVIDERS: ATTEND Surgery
DX: K44.9 Diaphragmatic hernia without obstruction or gangrene (principal); K21.00 Gastro-esophageal reflux disease with esophagitis, without bleeding; I25.10 Atherosclerotic heart disease of native coronary artery without angina pectoris; J44.9 Chronic obstructive pulmonary disease, unspecified; E11.9 Type 2 diabetes mellitus without complications; I11.0 Hypertensive heart disease with heart failure; I50.9 Heart failure, unspecified; E03.9 Hypothyroidism, unspecified; I08.3 Combined rheumatic disorders of mitral, aortic and tricuspid valves; I48.0 Paroxysmal atrial fibrillation; I49.5 Sick sinus syndrome; Z79.899 Other long term (current) drug therapy; Z88.0 Allergy status to penicillin; Z88.2 Allergy status to sulfonamides; Z88.1 Allergy status to other antibiotic agents; Z91.013 Allergy to seafood; Z91.048 Other nonmedicinal substance allergy status; Z88.8 Allergy status to other drugs, medicaments and biological substances; Z90.710 Acquired absence of both cervix and uterus; Z90.49 Acquired absence of other specified parts of digestive tract; Z86.73 Personal history of transient ischemic attack (TIA), and cerebral infarction without residual deficits
CPT/HCPCS: 82962; 88305

== ENCOUNTER 2020-05-09 10:15 | Emergency (ER) | payer MEDICARE, MEDICAID ==
[~2020-05-09] VITALS: Ht 144 cm; Wt 59.0 kg
[~2020-05-09 10:15] MED LIST changes: -CLIN300C11 PO; +CLIN300C12 PO; -MONT10TA26 PO; +MONT10TA97 PO
[2020-05-09 10:42] LABS: BASOPHILS % (AUTO) 1 % (0-10); EOSINOPHILS # (AUTO) 0.3 10^3/uL (0.0-0.3); EOSINOPHILS % (AUTO) 6 % (0-10); HEMATOCRIT 39 % (35-52); HEMOGLOBIN 11.9 g/dL (11.5-16.0); LYMPHOCYTES # (AUTO) 1.7 10^3/uL (1.0-4.0); LYMPHOCYTES % (AUTO) 31 % (12-44); MEAN CORPUSCULAR HEMOGLOBIN 23 pg (25-34); MEAN CORPUSCULAR HGB CONC 31 g/dL (32-36); MEAN CORPUSCULAR VOLUME 76 fL (80-99); MONOCYTES # (AUTO) 0.6 10^3/uL (0.0-1.0); MONOCYTES % (AUTO) 11 % (0-12); NEUTROPHILS # (AUTO) 2.7 10^3/uL (1.8-7.8); NEUTROPHILS % (AUTO) 51 % (42-75); PLATELET COUNT 253 10^3/uL (130-400); WHITE BLOOD COUNT 5.4 10^3/uL (4.3-11.0)
--- NOTE | 2020-05-09 10:44 | ED Chest Pain ---
General Chief Complaint: Chest Pain Stated Complaint: A FIB Source: patient Exam Limitations: no limitations History of Present Illness Date Seen by Provider: May 09, 2020 Time Seen by Provider: 10:16 Initial Comments Patient presents ER by private conveyance from urgent care clinic where she was seen with chief complaint of intermittent chest pain for the past several days. She has pain will calm about 4 out of 10 last for an hour or less and has nothing to do with exertion. It will be under her left alternating with her right breast. She thinks it is related to her indigestion. She is known to Dr. Shepherd and has had EGDs. He has her on Carafate and a PPI. She called Dr. Soni her primary care doctor and he did urine labs and a chest x-ray and told her she had a UTI. She wants to make sure she does not have a pneumonia but she is having no cough fever or chills. She had a negative Covid swab from Dr. Soni's office a couple days ago. She was taking the ciprofloxacin which she believes caused some loose stool but not feeling any better and continued to have pain so she went to the urgent care to make sure she did not have pneumonia. Urgent care told her she has atrial fibrillation and she needed to go to the ER to be checked out for chest pain. She has known atrial fibrillation but has failed to tolerate blood thinners in the past and so has had a atrial clip placed. She is on amiodarone under the care of Dr. Tamayo. She has no history of coronary disease. She does not smoke. She does have hypertension, hypothyroidism and hyperlipidemia. She does not drink alcohol and has no history of pancreatitis. She does not have her gallbladder anymore. She denies history of diabetes. Paroxysmal atrial fibrillation on amiodarone, history of TIA, sinus node dysfunction with dual-chamber pacemaker 2018. Anemia on vitamin B12, labile hypertension, stress test in 2019 revealing no ischemia or infarct. COPD with CPAP, history of GI bleed and peptic ulcer on Protonix, history of IBS, cholecystectomy, rectal prolapse, rectal stricture, GI bleed, internal hemorrhoids. Carotid artery stenosis mild. Echocardiogram by Dr. Tamayo 2018 demonstrating an EF of 50 to 55% with mild wall thickness increased and grade 1 diastolic dysfunction. Allergies and Home Medications Allergies Coded Allergies: levofloxacin (Unverified Allergy, Mild, RASH, 11/13/18) Penicillins (Verified Allergy, Unknown, 11/13/18) Shellfish (Verified Allergy, Unknown, 11/13/18) Sulfa (Sulfonamide Antibiotics) (Verified Allergy, Unknown, 11/13/18) azithromycin (Unverified Allergy, Unknown, ITCHING, 11/13/18) cephalexin (Verified Allergy, Unknown, 11/13/18) erythromycin base (Verified Allergy, Unknown, 11/13/18) furosemide (Verified Allergy, Unknown, 11/13/18) nitrofurantoin (Unverified Allergy, Unknown, ITCHING/"THICK TONGUE", 11/13/18) tetracycline (Verified Allergy, Unknown, 11/13/18) Uncoded Allergies: TAPE (Allergy, Unknown, 07/26/07) Home Medications ALPRAZolam 0.25 Mg Tablet, 0.5-1 TAB PO Q8H PRN for ANXIETY, (Reported) Amiodarone HCl 200 Mg Tablet, 100 MG PO DAILY, (Reported) TAKES 1/2 (200MG) TABLET Amlodipine Besylate 5 Mg Tablet, 5 MG PO DAILY, (Reported) Bimatoprost 2.5 Ml Drops, 1 DROP OU HS, (Reported) Cyanocobalamin 1,000 Mcg/Ml Inj, 1,000 MCG INJ MONTHLY, (Reported) Docusate Sodium 100 Mg Capsule, 100 MG PO DAILY, (Reported) Fexofenadine HCl 180 Mg Tablet, 180 MG PO DAILY PRN for ALLERGIES, (Reported) Guaifenesin/Dextromethorphan 1 Each Capsule, 1 CAP PO DAILY PRN for ALLERGIES, (Reported) Irbesartan 300 Mg Tablet, 300 MG PO DAILY, (Reported) LAST FILLED #30 12-02-17 Lactulose 10 Gm/15 Ml Solution, 15 ML PO DAILY PRN for CONSTIPATION-3RD LINE, (Reported) Levothyroxine Sodium 50 Mcg Tablet, 50 MCG PO DAILY, (Reported) Omeprazole 40 Mg Capsule.dr, 40 MG PO HS, (Reported) Polyethylene Glycol 3350 17 Gm Powd.pack, 17 GM PO DAILY PRN for CONSTIPATION- 2ND LINE, (Reported) Potassium Chloride 10 Meq Tab.er.prt, 10 MEQ PO DAILY, (Reported) Temazepam 15 Mg Capsule, 15 MG PO HS PRN for INSOMNIA, (Reported) Trimethoprim 100 Mg Tablet, 100 MG PO HS, (Reported) Patient Home Medication List Home Medication List Reviewed: Yes Review of Systems Review of Systems Constitutional: No chills, No diaphoresis EENTM: No Blurred Vision, No Double Vision Respiratory: Denies Cough, Denies Shortness of Air Cardiovascular: Chest Pain; Denies Edema, Denies Lightheadedness Gastrointestinal: Abdominal Pain; Denies Constipated, Denies Diarrhea, Denies Nausea Genitourinary: Denies Burning, Denies Discharge Musculoskeletal: No back pain, No joint pain Skin: No pruritus, No rash All Other Systems Reviewed Negative Unless Noted: Yes Past Eowtjxf-Jcxmwl-Kmnttr Hx Patient Social History Alcohol Use: Denies Use Recreational Drug Use: No Smoking Status: Never a Smoker 2nd Hand Smoke Exposure: No Recent Foreign Travel: No Contact w/Someone Who Travel: No Recent Hopitalizations: No Immunizations Up To Date Tetanus Booster (TDap): Less than 5yrs PED Vaccines UTD: No Date of Pneumonia Vaccine: Feb 14, 2018 Date of Influenza Vaccine: Feb 12, 2020 Seasonal Allergies Seasonal Allergies: Yes Past Medical History Surgeries: Yes (LAP NIESSEN, ATRIAL CLIPPING) Abdominal, Appendectomy, Cardiac, Gallbladder, Hysterectomy, Pacemaker, Rectal, Thyroidectomy, Tonsillectomy Respiratory: Yes Asthma, Sleep Apnea Currently Using CPAP: Yes Currently Using BIPAP: No Cardiac: Yes (SINUS NODE DYSFUNCTION, ATRIAL CLIPPING) Atrial Fibrillation, Cardiomyopathy, Chronic Edema/Swelling, Coronary Artery Disease, Hypertension Neurological: No 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 Disorders: No 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 Genitourinary: Yes Bladder Infection Gastrointestinal: Yes (dysphagia) Gastrointestinal Bleed, Hemorrhoids, Irritable Bowel Musculoskeletal: Yes (OSTEOARTHRITIS, FX RIGHT LOWER LEG, DISLOCATED RIGHT SHOULDER) Osteoporosis, Arthritis, Fractures Endocrine: Yes (THYROIDECTOMY; DIET CONTROLLED DIABETES) Hypothyroidsim, Diabetes, Non-Insulin dep HEENT: Yes Glaucoma Hearing Impairment: Hard of Hearing Cancer: No Psychosocial: Yes Anxiety, Depression Integumentary: No Blood Disorders: Yes (ANEMIA) Adverse Reaction/Blood Tranf: No Family Medical History Family history: Hypertension 03 FATHER, Onset:40's - 50 09 BROTHER, Onset:40's - 50 History of drug abuse 03 FATHER, Onset:20's - 25 Stroke 03 FATHER, Onset:60 years & older No Pertinent Family Hx Physical Exam Vital Signs Vital Signs - First Documented 05/09/20 10:19 Temp 35.5 Pulse 99 Resp 20 B/P (MAP) 154/137 (143) Pulse Ox 100 O2 Delivery Room Air Capillary Refill : Height, Weight, BMI Height: 5'6.00" Weight: 171lbs. 0.0oz. [id number]; 28.50 BMI Method:Stated General Appearance: No Apparent Distress, Obese HEENT: PERRL/EOMI, Pharynx Normal, Moist Mucous Membranes Neck: Full Range of Motion, Normal Inspection Respiratory: Lungs Clear, Normal Breath Sounds, No Accessory Muscle Use, No Respiratory Distress Cardiovascular: Regular Rate, Rhythm, Normal Peripheral Pulses Gastrointestinal: Normal Bowel Sounds, No Organomegaly, Soft, Tenderness (Mild, epigastric region) Extremity: Normal Capillary Refill, Normal Inspection Neurologic/Psychiatric: Alert, Oriented x3 Skin: Normal Color, Warm/Dry Progress/Results/Core Measures Results/Orders Lab Results Laboratory Tests Test 05/09/20 10:29 05/09/20 13:30 Range/Units White Blood Count 5.4 4.3-11.0 10^3/uL Red Blood Count 5.13 H 3.80-5.11 10^6/uL Hemoglobin 11.9 11.5-16.0 g/dL Hematocrit 39 35-52 % Mean Corpuscular Volume 76 L 80-99 fL Mean Corpuscular Hemoglobin 23 L 25-34 pg Mean Corpuscular Hemoglobin Concent 31 L 32-36 g/dL Red Cell Distribution Width 17.3 H 10.0-14.5 % Platelet Count 253 130-400 10^3/uL Mean Platelet Volume 10.0 9.0-12.2 fL Immature Granulocyte % (Auto) 0 % Neutrophils (%) (Auto) 51 42-75 % Lymphocytes (%) (Auto) 31 12-44 % Monocytes (%) (Auto) 11 0-12 % Eosinophils (%) (Auto) 6 0-10 % Basophils (%) (Auto) 1 0-10 % Neutrophils # (Auto) 2.7 1.8-7.8 10^3/uL Lymphocytes # (Auto) 1.7 1.0-4.0 10^3/uL Monocytes # (Auto) 0.6 0.0-1.0 10^3/uL Eosinophils # (Auto) 0.3 0.0-0.3 10^3/uL Basophils # (Auto) 0.0 0.0-0.1 10^3/uL Immature Granulocyte # (Auto) 0.0 0.0-0.1 10^3/uL Prothrombin Time 14.0 12.2-14.7 SEC INR Comment 1.0 0.8-1.4 Activated Partial Thromboplast Time 31 24-35 SEC Sodium Level 140 135-145 MMOL/L Potassium Level 3.6 3.6-5.0 MMOL/L Chloride Level 108 H 98-107 MMOL/L Carbon Dioxide Level 23 21-32 MMOL/L Anion Gap 9 5-14 MMOL/L Blood Urea Nitrogen 13 7-18 MG/DL Creatinine 0.97 0.60-1.30 MG/DL Estimat Glomerular Filtration Rate 55 BUN/Creatinine Ratio 13 Glucose Level 125 H 70-105 MG/DL Calcium Level 9.2 8.5-10.1 MG/DL Corrected Calcium 9.1 8.5-10.1 MG/DL Magnesium Level 2.3 1.6-2.4 MG/DL Total Bilirubin 0.5 0.1-1.0 MG/DL Aspartate Amino Transf (AST/SGOT) 16 5-34 U/L Alanine Aminotransferase (ALT/SGPT) 16 0-55 U/L Alkaline Phosphatase 106 40-136 U/L Myoglobin 28.8 10.0-92.0 NG/ML Troponin I < 0.028 < 0.028 <0.028 NG/ML Total Protein 7.6 6.4-8.2 GM/DL Albumin 4.1 3.2-4.5 GM/DL Lipase 38 8-78 U/L My Orders Orders - H[facility] Cbc With Automated Diff (05/09/20 10:36) Magnesium (05/09/20 10:36) Chest 1 View, Ap/Pa Only (05/09/20 10:36) Ekg Tracing (05/09/20 10:36) Comprehensive Metabolic Panel (05/09/20 10:36) Myoglobin Serum (05/09/20 10:36) Protime With Inr (05/09/20 10:36) Partial Thromboplastin Time (05/09/20 10:36) O2 (05/09/20 10:36) Monitor-Rhythm Ecg Trace Only (05/09/20 10:36) Lipid Panel (05/10/20 06:00) Ed Iv/Invasive Line Start (05/09/20 10:36) Lipase (05/09/20 10:36) Troponin I (05/09/20 10:36) Aspirin Chewable Tablet (Baby Aspirin Ch (05/09/20 10:45) Antacid Suspension (Mylanta Suspension (05/09/20 10:45) Troponin I (05/09/20 13:30) General/Regular (05/09/20 Lunch) Medications Given in ED Current Medications Medications Dose Ordered Sig/Cora Route Start Time Stop Time Status Last Admin Dose Admin Al Hydrox/Mg Hydrox/Simethicone 30 ml ONCE ONCE PO 05/09/20 10:45 05/09/20 10:46 DC 05/09/20 10:51 30 ML Aspirin 324 mg ONCE ONCE PO 05/09/20 10:45 05/09/20 10:46 DC 05/09/20 10:49 324 MG Vital Signs/I&O 05/09/20 05/09/20 10:19 10:19 Temp 35.5 Pulse 99 Resp 20 B/P (MAP) 154/137 (143) Pulse Ox 100 O2 Delivery Room Air Progress Progress Note : Time: 10:44 Progress Note Suspect strongly the patient is having indigestion and will give her some Maalox. She says she is not having any pain at this time. Her symptoms have been intermittent for the past several days so we will get troponin, lipase and chest x-ray as well as basic labs. We have encouraged her to start taking probiotics with her ciprofloxacin. Diagnostic Imaging Diagonstic Imaging: Xray Plain Films/CT/US/NM/MRI: chest Comments NAME: [facility] REC#: [id number] PT STATUS: REG ER : 1935 PHYSICIAN: DENA BLAKE MD ADMIT DATE: 05/09/20/ER Draft Date of Exam:05/09/20 CHEST 1 VIEW, AP/PA ONLY Clinical Indication: Patient with chest pain. Exam: Portable chest x-ray upright view. Comparisons: Chest x-ray dated 01/11/2020. Findings: Lungs/pleura: Lungs are clear. There is no pneumothorax. There is no pleural effusion. Mediastinum: Unremarkable. Pulmonary vasculature: Unremarkable. Heart: Stable cardiomegaly. Stable postoperative changes to the chest including cardiac pacemaker. Bones/extrathoracic soft tissue: Unremarkable. Impression: 1: Stable chest x-ray exam with no interval radiographic evidence of acute cardiopulmonary process. 2: Stable cardiomegaly with no significant pulmonary vascular congestion. Dictated on workstation # [id number] Dict: 05/09/20 1152 Trans: 05/09/20 1154 [facility] [id number] Interpreted by: SEBASTIAN CLANCY MD Electronically signed by: Reviewed: Reviewed by Me Consults : Consulting Physician: BEBETO TAMAYO MD Consults Notes Discussed the case with her primary pull up hand who agrees with a 3-hour delta troponin rule out if she is still pain-free. He would see her in the clinic. We reviewed her stress test from last year being negative and her negative history of coronary disease. Patient is in agreement with this plan. Departure Impression Primary Impression: Chest pain Qualified Codes: R07.9 - Chest pain, unspecified Additional Impression: Hiatal hernia with GERD and esophagitis Disposition: HOME, SELF-CARE Condition: Stable Departure-Patient Inst. Decision time for Depature: 14:20 Referrals: BEBETO TAMAYO MD, WILLIAM J DO (PCP/Family) Primary Care Physician Patient Instructions: Chest Pain (DC), Dyspepsia Add. Discharge Instructions: If your chest pain represents and does not go away with some Rolaids, Tums, Maalox or similar medications that I would encourage you to return to the ER. Call Dr. Tamayo and request follow-up appointment this week or next. All discharge instructions reviewed with patient and/or family. Voiced understanding. Copy Copies To 1: BEBETO TAMAYO MD, TITUS J May 09, 2020 10:44
[2020-05-09] MEDS ORDERED: ASPIRIN 81 MG CHEW (CHILDREN'S ASA) PO ONE (10:45)
[2020-05-09] MEDS ORDERED: ANTACID SUSP 30 ML UDC (MYLANTA) PO ONE (10:45)
[2020-05-09 10:55] LABS: ALBUMIN 4.1 GM/DL (3.2-4.5)
[2020-05-09 10:56] LABS: POTASSIUM 3.6 MMOL/L (3.6-5.0)
[2020-05-09 10:57] LABS: CALCIUM 9.2 MG/DL (8.5-10.1)
[2020-05-09 10:58] LABS: TOTAL PROTEIN 7.6 GM/DL (6.4-8.2)
[2020-05-09 11:00] LABS: BILIRUBIN,TOTAL 0.5 MG/DL (0.1-1.0)
[2020-05-09 11:02] LABS: CREATININE SERUM 0.97 MG/DL (0.60-1.30)
[2020-05-09 11:04] LABS: MAGNESIUM 2.3 MG/DL (1.6-2.4)
--- NOTE | 2020-05-09 11:54 | Diagnostic Imaging Report ---
Clinical Indication: Patient with chest pain. Exam: Portable chest x-ray upright view. Comparisons: Chest x-ray dated 01/11/2020. Findings: Lungs/pleura: Lungs are clear. There is no pneumothorax. There is no pleural effusion. Mediastinum: Unremarkable. Pulmonary vasculature: Unremarkable. Heart: Stable cardiomegaly. Stable postoperative changes to the chest including cardiac pacemaker. Bones/extrathoracic soft tissue: Unremarkable. Impression: 1: Stable chest x-ray exam with no interval radiographic evidence of acute cardiopulmonary process. 2: Stable cardiomegaly with no significant pulmonary vascular congestion. Dictated by: Dictated on workstation # [id number]
--- NOTE | 2020-05-09 13:39 | NUR ---
TROPONIN SENT TO LAB
[2020-05-09 14:27] VITALS: BP 152/80
== END 2020-05-09 14:39 | disposition home or self-care (01) ==
LOC: EDUNIT# 10:15 → ER 10:18
DX: R07.9 Chest pain, unspecified (principal); K44.9 Diaphragmatic hernia without obstruction or gangrene; E66.9 Obesity, unspecified; I48.91 Unspecified atrial fibrillation; I10 Essential (primary) hypertension; E03.9 Hypothyroidism, unspecified; I25.10 Atherosclerotic heart disease of native coronary artery without angina pectoris; H40.9 Unspecified glaucoma; F41.9 Anxiety disorder, unspecified; Z68.28 Body mass index [BMI] 28.0-28.9, adult; Z82.49 Family history of ischemic heart disease and other diseases of the circulatory system; Z95.0 Presence of cardiac pacemaker; Z79.890 Hormone replacement therapy; Z88.1 Allergy status to other antibiotic agents; Z88.0 Allergy status to penicillin; Z88.2 Allergy status to sulfonamides; Z88.8 Allergy status to other drugs, medicaments and biological substances
CPT/HCPCS: 36415; 71045; 80053; 83690; 83735; 83874; 84484; 85025; 85610; 85730; 93041

== ENCOUNTER → 2020-06-20 | Outpatient (CLI) | payer MEDICARE, MEDICAID ==
[~2020-06-20] MED LIST changes: -CIPR500T4 PO; +CIPR500T5 PO; +MONT10TA32 PO; -MONT10TA97 PO
== END ==
LOC: CARD 12:00
PROVIDERS: ATTEND Physician Assistant
DX: I07.1 Rheumatic tricuspid insufficiency (principal); I48.0 Paroxysmal atrial fibrillation
CPT/HCPCS: 93306

== ENCOUNTER → 2020-07-08 | Outpatient (CLI) | payer MEDICARE, MEDICAID ==
[~2020-07-08] VITALS: Ht 167 cm; Wt 85.0 kg
[~2020-07-08] MED LIST changes: +CATHETER FLUSH 10 ML SYR IV PRN; +REGADENOSON 0.4 MG/5 ML SYR (LEXISCAN) IV ONE
[2020-07-08 09:20] VITALS: BP 176/121
--- NOTE | 2020-07-08 11:45 | Cardiology Stress Test Report ---
Stress Test Report Date of Procedure/Referring: Date of Procedure: Jul 08, 2020 PCP Raysa Epps Admitting Physician Martinez Soni DO Indications: Chest pain Baseline Heart Rate: 89 Baseline Blood Pressure: Blood Pressure Systolic: 176 Blood Pressure Diastolic: 121 Baseline Vitals Vital Signs Date Time Temp Pulse Resp B/P (MAP) Pulse Ox O2 Delivery O2 Flow Rate FiO2 07/08/20 09:20 93 18 176/121 (139) 99 Room Air Baseline EKG: Baseline EKG: atrial fibrillation Summary After explaining the procedure to the patient, she signed a consent and then brought to the stress nuclear laboratory. Patient received 0.4 mg Lexiscan for stress test, ECG, heart rate and blood pressure were monitored continuously. Resting and stress dose of radio tracer were injected, imaging was acquired and reviewed in short axis, horizontal long axis and vertical long axis views. TID: 0.99 SSS: 4 SDS: 2 EF: 64 1. Patient tolerated Lexiscan well 2. Extra cardiac attenuation, mild decreased uptake at the inferolateral wall with subtle reversibility, no significant ischemia or infarction on SPECT images 3. Baseline atrial fibrillation, gated images showed normal left ventricular size, EF 64 percent, unreliable gated images. BEBETO HOLLINGSWORTH MD Jul 08, 2020 11:45
== END ==
LOC: CARD 08:30
PROVIDERS: ATTEND Physician Assistant
DX: I48.0 Paroxysmal atrial fibrillation (principal)
CPT/HCPCS: 78452; 93017; A9502

== ENCOUNTER → 2020-10-11 | Outpatient (CLI) | payer MEDICARE, MEDICAID ==
[~2020-10-11] MED LIST changes: -CATHETER FLUSH 10 ML SYR IV PRN; -REGADENOSON 0.4 MG/5 ML SYR (LEXISCAN) IV ONE
--- NOTE | 2020-10-11 12:55 | Diagnostic Imaging Report ---
Lumbosacral spine. Indication: Back pain 4 views were obtained. This exam is technically less than optimal as there is a considerable amount of bowel gas present and this does obscure the lumbar spine. The lateral view does show a grade 1 spondylolisthesis of L4 with respect to L5. There is also severe degenerative disc and bone disease at the L5-S1 level. These findings are similar to the previous CT abdomen/pelvis exam of 07/20/2018. The alignment of the other vertebral bodies is within normal limits and the other intervertebral spaces are fairly well-maintained. There is no fracture or acute bony abnormality identified. There is no sign of a paraspinal mass. There is mild symmetrical sclerosis of the sacroiliac joints. Impression: 1. There is no evidence for an acute bony abnormality on this suboptimal exam. 2. If clinical concern regarding an underlying abnormality persists, then CT lumbar spine should be considered for further study. The patient does have a pacemaker in place and this would preclude further evaluation by MRI. Dictated by: Dictated on workstation # [id number]
--- NOTE | 2020-10-11 12:55 | Diagnostic Imaging Report ---
EXAM: Thoracic spine at 11:18 AM INDICATION: Back pain 3 views were obtained. The lateral view shows mild kyphosis of the thoracic spine. This finding is similar to the chest exam performed on 01/11/2020. The vertebral body heights are within normal limits and there is only mild degenerative disc disease throughout the thoracic spine. There is no fracture or acute bony abnormality appreciated. There is no sign of a paraspinal mass. IMPRESSION: There is no evidence for an acute bony abnormality of the thoracic spine. Dictated by: Dictated on workstation # [id number]
--- NOTE | 2020-10-11 13:04 | Diagnostic Imaging Report ---
EXAMINATION: Cervical spine at 11:17 a.m. INDICATION: Neck pain. Five views were obtained. There are no prior studies available for comparison. The lateral view shows reversal of the normal lordosis of the cervical spine. There is also fairly severe narrowing of the disc spaces at C4-C5, C5-C6 and C6-C7. There is also mild neural foraminal narrowing bilaterally at these levels. There is no fracture or acute bony abnormality identified. There is no sign of retropharyngeal edema. The lung apices are clear. A left-sided pacemaker is noted. IMPRESSION: 1. There is no evidence for an acute bony abnormality. 2. There is fairly severe degenerative disc and bony disease at C4-C5, C5-C6 and C6-C7. 3. If there is clinical concern regarding spinal stenosis or nerve root encroachment, a then CT would be recommended for further study. Dictated by: Dictated on workstation # [id number]
== END ==
LOC: RAD 10:56
PROVIDERS: ATTEND Nurse Practitioner Family
DX: M50.121 Cervical disc disorder at C4-C5 level with radiculopathy (principal); M50.122 Cervical disc disorder at C5-C6 level with radiculopathy; M50.123 Cervical disc disorder at C6-C7 level with radiculopathy; M53.82 Other specified dorsopathies, cervical region
CPT/HCPCS: 72050; 72072; 72110

== ENCOUNTER 2020-10-12 15:55 | Emergency (ER) | payer MEDICARE, MEDICAID ==
[~2020-10-12] VITALS: Ht 162.5 cm; Wt 84.0 kg
--- NOTE | 2020-10-12 16:23 | ED Chest Pain ---
General Chief Complaint: Chest Pain Stated Complaint: INTERMITTENT CP/HAS PACEMAKER Source: patient Exam Limitations: no limitations (ZENIA MEDINA APRN) History of Present Illness Date Seen by Provider: Oct 12, 2020 Time Seen by Provider: 16:21 Initial Comments To ER with reports of left-sided chest pain overlying her pacemaker. She states that she gets heartburn a lot and this is how it presents however this pain was more intense than her typical heartburn. She takes Prilosec Pepcid and Carafate for her heartburn. The pain is gone at this time. She states that because of her age she thought she should be checked out Timing/Duration: changing over time Severity/Quality: moderate Location: central Radiation: no radiation Activities at Onset: none ASA po DAY CARE AIDE: No NTG SL DAY CARE AIDE: No (ZENIA MEDINA APRN) Allergies and Home Medications Allergies Coded Allergies: levofloxacin (Unverified Allergy, Mild, RASH, 11/13/18) Penicillins (Verified Allergy, Unknown, 11/13/18) Shellfish (Verified Allergy, Unknown, 11/13/18) Sulfa (Sulfonamide Antibiotics) (Verified Allergy, Unknown, 11/13/18) azithromycin (Unverified Allergy, Unknown, ITCHING, 11/13/18) cephalexin (Verified Allergy, Unknown, 11/13/18) erythromycin base (Verified Allergy, Unknown, 11/13/18) furosemide (Verified Allergy, Unknown, 11/13/18) nitrofurantoin (Unverified Allergy, Unknown, ITCHING/"THICK TONGUE", 11/13/18) tetracycline (Verified Allergy, Unknown, 11/13/18) Uncoded Allergies: TAPE (Allergy, Unknown, 07/26/07) Home Medications ALPRAZolam 0.25 Mg Tablet, 0.5-1 TAB PO Q8H PRN for ANXIETY, (Reported) Amiodarone HCl 200 Mg Tablet, 100 MG PO DAILY, (Reported) TAKES 1/2 (200MG) TABLET Amlodipine Besylate 5 Mg Tablet, 5 MG PO DAILY, (Reported) Bimatoprost 2.5 Ml Drops, 1 DROP OU HS, (Reported) Cyanocobalamin 1,000 Mcg/Ml Inj, 1,000 MCG INJ MONTHLY, (Reported) Docusate Sodium 100 Mg Capsule, 100 MG PO DAILY, (Reported) Fexofenadine HCl 180 Mg Tablet, 180 MG PO DAILY PRN for ALLERGIES, (Reported) Guaifenesin/Dextromethorphan 1 Each Capsule, 1 CAP PO DAILY PRN for ALLERGIES, (Reported) Irbesartan 300 Mg Tablet, 300 MG PO DAILY, (Reported) LAST FILLED #30 -- Lactulose 10 Gm/15 Ml Solution, 15 ML PO DAILY PRN for CONSTIPATION-3RD LINE, (Reported) Levothyroxine Sodium 50 Mcg Tablet, 50 MCG PO DAILY, (Reported) Omeprazole 40 Mg Capsule.dr, 40 MG PO HS, (Reported) Polyethylene Glycol 3350 17 Gm Powd.pack, 17 GM PO DAILY PRN for CONSTIPATION- 2ND LINE, (Reported) Potassium Chloride 10 Meq Tab.er.prt, 10 MEQ PO DAILY, (Reported) Temazepam 15 Mg Capsule, 15 MG PO HS PRN for INSOMNIA, (Reported) Trimethoprim 100 Mg Tablet, 100 MG PO HS, (Reported) Patient Home Medication List Home Medication List Reviewed: Yes (ZENIA MEDINA APRN) Review of Systems Review of Systems Constitutional: see HPI EENTM: No Symptoms Reported Respiratory: No Symptoms Reported Cardiovascular: No Symptoms Reported Gastrointestinal: See HPI Genitourinary: No Symptoms Reported Musculoskeletal: no symptoms reported Skin: no symptoms reported Psychiatric/Neurological: No Symptoms Reported Endocrine: No Symptoms Reported Hematologic/Lymphatic: No Symptoms Reported (ZENIA MEDINA APRN) Past Atyevxp-Hcoxti-Pavtfs Hx Patient Social History 2nd Hand Smoke Exposure: No Recent Hopitalizations: No (ZENIA MEDINA APRN) Immunizations Up To Date Tetanus Booster (TDap): Less than 5yrs PED Vaccines UTD: No Date of Pneumonia Vaccine: Feb 14, 2018 Date of Influenza Vaccine: Feb 12, 2020 (ZENIA MEDINA APRN) Seasonal Allergies Seasonal Allergies: Yes (ZENIA MEDINA APRN) Past Medical History Surgeries: Yes (LAP NIESSEN, ATRIAL CLIPPING) Abdominal, Appendectomy, Cardiac, Gallbladder, Hysterectomy, Pacemaker, Rectal, Thyroidectomy, Tonsillectomy Respiratory: Yes Asthma, Sleep Apnea Currently Using CPAP: Yes Currently Using BIPAP: No Cardiac: Yes (SINUS NODE DYSFUNCTION, ATRIAL CLIPPING) Atrial Fibrillation, Cardiomyopathy, Chronic Edema/Swelling, Coronary Artery Disease, Hypertension Neurological: No 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 Disorders: No 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 History: Hysterectomy Genitourinary: Yes Bladder Infection Gastrointestinal: Yes (dysphagia) Gastrointestinal Bleed, Hemorrhoids, Irritable Bowel Musculoskeletal: Yes (OSTEOARTHRITIS, FX RIGHT LOWER LEG, DISLOCATED RIGHT SHOULDER) Osteoporosis, Arthritis, Fractures Endocrine: Yes (THYROIDECTOMY; DIET CONTROLLED DIABETES) Hypothyroidsim, Diabetes, Non-Insulin dep HEENT: Yes Glaucoma Hearing Impairment: Hard of Hearing Cancer: No Psychosocial: Yes Anxiety, Depression Integumentary: No Blood Disorders: Yes (ANEMIA) Adverse Reaction/Blood Tranf: No (ZENIA MEDINA APRN) Family Medical History Family history: Hypertension 03 FATHER, Onset:40's - 50 09 BROTHER, Onset:40's - 50 History of drug abuse 03 FATHER, Onset:20's - 25 Stroke 03 FATHER, Onset:60 years & older No Pertinent Family Hx (ZENIA MEDINA APRN) Physical Exam Vital Signs Vital Signs - First Documented 10/12/20 15:58 Temp 35.8 Pulse 70 Resp 18 B/P (MAP) 144/84 (104) Pulse Ox 97 O2 Delivery Room Air (DEVI BERGERON MD) Vital Signs Capillary Refill : (ZENIA MEDINA APRN) Height, Weight, BMI Height: 5'6.00" Weight: 171lbs. 0.0oz. 77.528657ua; 30.47 BMI Method:Stated General Appearance: No Apparent Distress, WD/WN Neck: Full Range of Motion, Normal Inspection Respiratory: Lungs Clear, Normal Breath Sounds, No Accessory Muscle Use, No Respiratory Distress Cardiovascular: Regular Rate, Rhythm, Normal Peripheral Pulses Gastrointestinal: Normal Bowel Sounds, Non Tender, Soft Extremity: Normal Capillary Refill, Normal Inspection Neurologic/Psychiatric: Alert, Oriented x3 Skin: Normal Color, Warm/Dry (ZENIA MEDINA APRN) Progress/Results/Core Measures Results/Orders Lab Results Laboratory Tests Test 10/12/20 16:05 Range/Units White Blood Count 5.8 4.3-11.0 10^3/uL Red Blood Count 4.91 3.80-5.11 10^6/uL Hemoglobin 10.7 L 11.5-16.0 g/dL Hematocrit 36 35-52 % Mean Corpuscular Volume 73 L 80-99 fL Mean Corpuscular Hemoglobin 22 L 25-34 pg Mean Corpuscular Hemoglobin Concent 30 L 32-36 g/dL Red Cell Distribution Width 18.3 H 10.0-14.5 % Platelet Count 273 130-400 10^3/uL Mean Platelet Volume 9.9 9.0-12.2 fL Immature Granulocyte % (Auto) 1 % Neutrophils (%) (Auto) 59 42-75 % Lymphocytes (%) (Auto) 24 12-44 % Monocytes (%) (Auto) 11 0-12 % Eosinophils (%) (Auto) 4 0-10 % Basophils (%) (Auto) 1 0-10 % Neutrophils # (Auto) 3.4 1.8-7.8 10^3/uL Lymphocytes # (Auto) 1.4 1.0-4.0 10^3/uL Monocytes # (Auto) 0.6 0.0-1.0 10^3/uL Eosinophils # (Auto) 0.2 0.0-0.3 10^3/uL Basophils # (Auto) 0.1 0.0-0.1 10^3/uL Immature Granulocyte # (Auto) 0.1 0.0-0.1 10^3/uL Sodium Level 141 135-145 MMOL/L Potassium Level 4.3 3.6-5.0 MMOL/L Chloride Level 109 H 98-107 MMOL/L Carbon Dioxide Level 19 L 21-32 MMOL/L Anion Gap 13 5-14 MMOL/L Blood Urea Nitrogen 16 7-18 MG/DL Creatinine 1.39 H 0.60-1.30 MG/DL Estimat Glomerular Filtration Rate 36 BUN/Creatinine Ratio 12 Glucose Level 88 70-105 MG/DL Calcium Level 9.2 8.5-10.1 MG/DL Corrected Calcium 9.3 8.5-10.1 MG/DL Magnesium Level 2.4 1.6-2.4 MG/DL Total Bilirubin 0.7 0.1-1.0 MG/DL Aspartate Amino Transf (AST/SGOT) 14 5-34 U/L Alanine Aminotransferase (ALT/SGPT) 9 0-55 U/L Alkaline Phosphatase 85 40-136 U/L Myoglobin 33.1 10.0-92.0 NG/ML Troponin I < 0.028 <0.028 NG/ML B-Type Natriuretic Peptide 130.6 H <100.0 PG/ML Total Protein 7.0 6.4-8.2 GM/DL Albumin 3.9 3.2-4.5 GM/DL Procalcitonin 0.02 <0.10 NG/ML (DEVI BERGERON MD) Vital Signs/I&O 10/12/20 10/12/20 15:58 18:55 Temp 35.8 Pulse 70 61 Resp 18 18 B/P (MAP) 144/84 (104) 132/74 Pulse Ox 97 93 O2 Delivery Room Air Room Air (DEVI BERGERON MD) Progress Progress Note : Progress Note I was physically present in the emergency department as attending physician during the care of this patient, but I was not directly involved in this patient's care. (DEVI BERGERON MD) Departure Communication (Admissions) 1845-still symptom-free vitals are stable, she returned on her call light to inform me that she was getting " saddle sore" and ready to go home. (ZENIA MEDINA APRN) Impression Primary Impression: Chest pain Disposition: HOME, SELF-CARE Condition: Stable Departure-Patient Inst. Decision time for Depature: 18:45 (ZENIA MEDINA APRN) Referrals: ESTHER DANIELLE DO (PCP/Family) Primary Care Physician Patient Instructions: Chest Pain, Adult ED Add. Discharge Instructions: 1. Return to ER for any concerns 2. Follow-up with your doctor next week All discharge instructions reviewed with patient and/or family. Voiced understanding. ZENIA MEDINA APRN Oct 12, 2020 16:23 DEVI BERGERON MD Oct 14, 2020 09:48
[2020-10-12 16:29] LABS: BASOPHILS # (AUTO) 0.1 10^3/uL (0.0-0.1); BASOPHILS % (AUTO) 1 % (0-10); EOSINOPHILS # (AUTO) 0.2 10^3/uL (0.0-0.3); EOSINOPHILS % (AUTO) 4 % (0-10); HEMATOCRIT 36 % (35-52); HEMOGLOBIN 10.7 g/dL (11.5-16.0); LYMPHOCYTES # (AUTO) 1.4 10^3/uL (1.0-4.0); LYMPHOCYTES % (AUTO) 24 % (12-44); MEAN CORPUSCULAR HEMOGLOBIN 22 pg (25-34); MEAN CORPUSCULAR HGB CONC 30 g/dL (32-36); MEAN CORPUSCULAR VOLUME 73 fL (80-99); MEAN PLATELET VOLUME 9.9 fL (9.0-12.2); MONOCYTES # (AUTO) 0.6 10^3/uL (0.0-1.0); MONOCYTES % (AUTO) 11 % (0-12); NEUTROPHILS # (AUTO) 3.4 10^3/uL (1.8-7.8); NEUTROPHILS % (AUTO) 59 % (42-75); PLATELET COUNT 273 10^3/uL (130-400); WHITE BLOOD COUNT 5.8 10^3/uL (4.3-11.0)
[2020-10-12] MEDS ORDERED: ANTACID SUSP 30 ML UDC (MYLANTA) PO ONE (16:30)
[2020-10-12] MEDS ORDERED: LIDOCAINE 2% VISCOUS 15 ML UDC PO ONE (16:30)
[2020-10-12] MEDS ORDERED: ASPIRIN 81 MG CHEW (CHILDREN'S ASA) PO ONE (16:30)
[2020-10-12 16:33] LABS: ALBUMIN 3.9 GM/DL (3.2-4.5); CHLORIDE 109 MMOL/L (98-107); POTASSIUM 4.3 MMOL/L (3.6-5.0); SODIUM 141 MMOL/L (135-145)
[2020-10-12 16:34] LABS: CALCIUM 9.2 MG/DL (8.5-10.1)
[2020-10-12 16:35] LABS: GLUCOSE 88 MG/DL (70-105)
[2020-10-12 16:37] LABS: BILIRUBIN,TOTAL 0.7 MG/DL (0.1-1.0); CARBON DIOXIDE 19 MMOL/L (21-32)
[2020-10-12 16:39] LABS: ALKALINE PHOSPHATASE 85 U/L (40-136); CREATININE SERUM 1.39 MG/DL (0.60-1.30); GFR ESTIMATED 36
[2020-10-12 16:40] LABS: BUN/CREATININE RATIO 12
[2020-10-12 16:42] LABS: ALANINE AMINOTRANSFERASE 9 U/L (0-55); MAGNESIUM 2.4 MG/DL (1.6-2.4)
--- NOTE | 2020-10-12 16:51 | Diagnostic Imaging Report ---
Indication: Chest pain. Comparison: 05/09/2020. Discussion: Single portable upright view of the chest was obtained. Cardiomegaly is stable. Bilateral mixed interstitial and alveolar infiltrates could represent early edema or pneumonia. Left-sided pacemaker is stable. No pleural fluid or pneumothorax. No osseous abnormality. Impression: Stable cardiomegaly with mild infiltrates, likely edema or pneumonia. Dictated by: Dictated on workstation # [id number]
[2020-10-12 18:55] VITALS: BP 132/74
== END 2020-10-12 18:53 | disposition home or self-care (01) ==
LOC: EDUNIT# 15:55 → ER 15:57
DX: R07.9 Chest pain, unspecified (principal); I10 Essential (primary) hypertension; I48.91 Unspecified atrial fibrillation; I25.10 Atherosclerotic heart disease of native coronary artery without angina pectoris; J45.909 Unspecified asthma, uncomplicated; E11.9 Type 2 diabetes mellitus without complications; E03.9 Hypothyroidism, unspecified; F41.9 Anxiety disorder, unspecified; F32.9 Major depressive disorder, single episode, unspecified; G47.30 Sleep apnea, unspecified; Z79.899 Other long term (current) drug therapy; Z79.890 Hormone replacement therapy; Z95.0 Presence of cardiac pacemaker
CPT/HCPCS: 36415; 71045; 80053; 83735; 83874; 83880; 84145; 84484; 85025; 93005; 93041

== ENCOUNTER → 2020-10-22 | Outpatient (CLI) | payer MEDICARE, MEDICAID ==
--- NOTE | 2020-10-22 20:30 | Diagnostic Imaging Report ---
PROCEDURE: CT cervical spine without contrast. TECHNIQUE: Multiple contiguous axial images were obtained through the cervical spine without the use of intravenous contrast. Sagittal and coronal reformations were then performed. Auto Exposure Controls were utilized during the CT exam to meet ALARA standards for radiation dose reduction. INDICATION: Neck pain. COMPARISON: Cervical spine radiographs of 10/11/2020 FINDINGS: There is degenerative straightening of the cervical spine. No spondylolisthesis. No fracture. No ankylosis of the vertebrae. Multilevel degenerative disc disease is greatest at C5-C6 where there is posterior endplate ridging and uncovertebral joint hypertrophy causing mild spinal stenosis and mild bilateral neuroforaminal narrowing. Severe facet osteoarthritis is present on the right at C2-C3 and C3-C4. No additional sites of advanced facet osteoarthritis are noted. No high-grade spinal stenosis. No cervical lymphadenopathy. No retropharyngeal fluid collection. A 2.3 x 1.4 cm nodule located at the inferior aspect of the left thyroid lobe. IMPRESSION: 1. 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 These degenerative changes do not result in significant foraminal narrowing. 2. Degenerative disc disease causes mild spinal stenosis at C5-C6. 3. Parathyroid nodule at the lower pole of the left thyroid lobe. This could be an exophytic thyroid nodule versus a parathyroid adenoma. Consider thyroid ultrasound for further assessment. Dictated by: Dictated on workstation # [id number]
== END ==
LOC: RAD 15:45
PROVIDERS: ATTEND Nurse Practitioner Family
DX: M47.22 Other spondylosis with radiculopathy, cervical region (principal); M50.122 Cervical disc disorder at C5-C6 level with radiculopathy; M48.02 Spinal stenosis, cervical region; E04.1 Nontoxic single thyroid nodule
CPT/HCPCS: 72125

== ENCOUNTER → 2020-11-05 | Outpatient (CLI) | payer MEDICARE, MEDICAID ==
[~2020-11-05] MED LIST changes: -OMEP40CA27 PO; +OMEP40CA6 PO
--- NOTE | 2020-11-05 17:00 | Diagnostic Imaging Report ---
PROCEDURE: US Thyroid. TECHNIQUE: Multiple real-time grayscale images were obtained of the thyroid in various projections. INDICATION: Thyroid nodule COMPARISON: Ultrasound dated 01/23/[address] dated 10/22/2020 FINDINGS: The right lobe of the thyroid gland is small in size measuring 3.0 x 1.3 x 1.2 cm. It maintains a mildly heterogeneous echotexture. Small subcentimeter cystic nodules are noted within the right thyroid lobe, largest measuring up to 0.5 cm. Some residual thymic tissue is noted within the left thyroid bed, though the patient notes a prior left partial thyroidectomy. This soft tissue appears more prominent than prior imaging in 2008. However, a 2.2 x 2.0 x 0.9 cm cystic ovoid nodule is noted along the inferior aspect of the left thyroid bed. There is suggestion of either internal echoes or eccentric soft tissue nodules. This corresponds to recent CT examination. IMPRESSION: A 2.2 cm predominantly cystic nodule within the left thyroid bed, new from the prior ultrasound in 2007. Recommend fine-needle aspiration for further evaluation given questionable internal soft tissue nodules. Left thyroidectomy is reported, though there appears to be residual left thyroid tissue remaining measuring 2.2 x 1.3 cm, more prominent than in 2018. Small subcentimeter cystic right thyroid nodules. Dictated by: Dictated on workstation # [id number]
== END ==
LOC: RAD 11:15
PROVIDERS: ATTEND Nurse Practitioner Family
DX: E04.1 Nontoxic single thyroid nodule (principal); Z90.89 Acquired absence of other organs
CPT/HCPCS: 76536

== ENCOUNTER → 2020-11-20 | Outpatient (CLI) | payer MEDICARE, MEDICAID ==
[~2020-11-20] VITALS: Ht 162.6 cm; Wt 85.5 kg
[~2020-11-20] MED LIST changes: +LIDOCAINE 1% INJ 20 ML 20 ML VIAL INJ ONE
--- NOTE | 2020-11-20 13:33 | Diagnostic Imaging Report ---
INDICATION: Left thyroid cystic mass. Patient presents for ultrasound-guided fine-needle aspiration. Patient brought to the procedure room placed on the table in the supine position. Ultrasound imaging of the left neck was performed to evaluate appropriate entry site. The left neck was then prepped and draped in usual sterile fashion. Small amount 1% lidocaine was utilized for local procedure. 18-gauge needle was advanced into the cystic mass in the left thyroid bed. 4 mL of brownish fluid was aspirated without difficulty. Followup imaging shows no residual fluid or cyst. Patient tolerated the procedure well and left the department in stable condition. IMPRESSION: Successful ultrasound-guided left thyroid bed cyst aspiration. Fluid will be sent for cytology. Dictated by: Dictated on workstation # [id number]
== END ==
LOC: RAD 09:50
PROVIDERS: ATTEND Surgery
DX: E04.2 Nontoxic multinodular goiter (principal)
CPT/HCPCS: 10005

== ENCOUNTER → 2021-01-31 | Outpatient (CLI) | payer MEDICARE, MEDICAID ==
[~2021-01-31] MED LIST changes: -LIDOCAINE 1% INJ 20 ML 20 ML VIAL INJ ONE
--- NOTE | 2021-01-31 11:14 | Diagnostic Imaging Report ---
Clinical indications: Evaluate thyroid nodule. Patient with left thyroidectomy. EXAM: Ultrasound of the thyroid gland. COMPARISONS: Ultrasound of the thyroid gland dated 11/05/2020. Findings and impression: 1: Limited exam as it is difficult to hyperextend patient's neck limiting evaluation. 2: There is 1.3 cm x 0.7 cm x 1.1 cm tissue in the left thyroid bed region. The residual left thyroid region previously measured 2.2 cm x 1.3 cm x 1.2 cm. 3: There is interval decreased size of the now 1.4 cm x 0.4 cm hypoechoic fluid collection seen inferior to left thyroid bed with no central Doppler flow. Previously this fluid collection measured 2.2 cm x 0.9 cm x 2.2 cm. 4.: There is a 7 mm x 4 mm hypoechoic nodule involving the right thyroid lobe. This nodule previously measured 5 mm x 4 mm. 5.: Previously seen 3 mm cystic lesion involving the upper pole of the right thyroid lobe is not seen on this exam. There is no significant central Doppler flow. 6: Right thyroid gland measures 2.8 cm x 1.4 cm x 1.5 cm. Dictated by: Dictated on workstation # [id number]
== END ==
LOC: RAD 09:02
PROVIDERS: ATTEND Surgery
DX: E04.1 Nontoxic single thyroid nodule (principal); Z90.89 Acquired absence of other organs
CPT/HCPCS: 76536

== ENCOUNTER 2021-04-26 12:09 | Emergency (ER) | payer MEDICARE, MEDICAID ==
[~2021-04-26] VITALS: Ht 167 cm; Wt 83.9 kg
[~2021-04-26 12:09] MED LIST changes: -AMIO200T6 PO; +AMIO200T65 PO; +CLIN-144 PO; -CLIN300C12 PO; +MONT-40 PO; -MONT10TA32 PO; +POTA-164 PO; -POTA10TA14 PO; +POTA10TA37 PO
[2021-04-26 12:54] LABS: BASOPHILS % (AUTO) 0 % (0-10); EOSINOPHILS # (AUTO) 0.1 10^3/uL (0.0-0.3); EOSINOPHILS % (AUTO) 1 % (0-10); HEMATOCRIT 40 % (35-52); LYMPHOCYTES # (AUTO) 1.3 10^3/uL (1.0-4.0); LYMPHOCYTES % (AUTO) 16 % (12-44); MEAN CORPUSCULAR HEMOGLOBIN 23 pg (25-34); MEAN CORPUSCULAR HGB CONC 30 g/dL (32-36); MEAN CORPUSCULAR VOLUME 77 fL (80-99); MEAN PLATELET VOLUME 9.7 fL (9.0-12.2); MONOCYTES # (AUTO) 0.6 10^3/uL (0.0-1.0); MONOCYTES % (AUTO) 7 % (0-12); NEUTROPHILS # (AUTO) 5.8 10^3/uL (1.8-7.8); NEUTROPHILS % (AUTO) 75 % (42-75); PLATELET COUNT 284 10^3/uL (130-400); WHITE BLOOD COUNT 7.8 10^3/uL (4.3-11.0)
[2021-04-26] MEDS ORDERED: LIDOCAINE 2% VISCOUS 15 ML UDC PO ONE (13:00)
[2021-04-26] MEDS ORDERED: ANTACID SUSP 30 ML UDC (MYLANTA) PO ONE (13:00)
[2021-04-26 13:01] LABS: ALBUMIN 3.9 GM/DL (3.2-4.5)
--- NOTE | 2021-04-26 13:01 | ED General ---
General Chief Complaint: Chest Pain Stated Complaint: CHEST PAIN/UTI SYMPTOMS Nursing Triage Note: PT PRESENTS TO ED WITH COMPLAINTS OF INTERMITTENT CP, UTI S/S, L LEG PAIN/SWELLING, AND NEGATIVE COVID TEST YESTERDAY. Source of Information: Patient Exam Limitations: No Limitations History of Present Illness Date Seen by Provider: Apr 26, 2021 Time Seen by Provider: 12:59 Initial Comments To ER with complaints including but not limited to intermittent chest pain that feels like her acid reflux but also feels a little different for a few days. Not present currently. She also states that she aspirated on some of her pills a few days ago. No cough no fever. She does have chronic unchanged shortness of breath. She has hiatal hernia is bothering her, she has intermittent dysuria. She had a urine sample sent off by primary care on Wednesday of this week but has not heard the results yet. 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 Timing/Duration: 2-3 Days, Intermittent Severity: Moderate Associated Systoms: Chest Pain; No Cough, No Diaphoresis, No Fever/Chills, No Headaches, No Loss of Appetite, No Malaise, No Nausea/Vomiting, No Rash Allergies and Home Medications Allergies Coded Allergies: levofloxacin (Unverified Allergy, Mild, RASH, 11/13/18) Penicillins (Verified Allergy, Unknown, 11/13/18) Shellfish (Verified Allergy, Unknown, 11/13/18) Sulfa (Sulfonamide Antibiotics) (Verified Allergy, Unknown, 11/13/18) azithromycin (Unverified Allergy, Unknown, ITCHING, 11/13/18) cephalexin (Verified Allergy, Unknown, 11/13/18) erythromycin base (Verified Allergy, Unknown, 11/13/18) furosemide (Verified Allergy, Unknown, 11/13/18) nitrofurantoin (Unverified Allergy, Unknown, ITCHING/"THICK TONGUE", 11/13/18) tetracycline (Verified Allergy, Unknown, 11/13/18) Uncoded Allergies: TAPE (Allergy, Unknown, 07/26/07) Patient Home Medication List Home Medication List Reviewed: Yes ALPRAZolam (Xanax Tablet) 0.25 Mg Tablet, 0.5-1 TAB PO Q8H PRN for ANXIETY, (Reported) Entered as Reported by: MAKENNA AGUILAR on 02/14/16 09 Amiodarone HCl (Amiodarone HCl) 200 Mg Tablet, 100 MG PO DAILY, (Reported) Entered as Reported by: MAKENNA AGUILAR on 11/25/17 09 Amlodipine Besylate (Amlodipine Besylate) 5 Mg Tablet, 5 MG PO DAILY, (Reported) Entered as Reported by: MAKENNA AGUILAR on 08/27/16 08 Bimatoprost (Lumigan) 2.5 Ml Drops, 1 DROP OU HS, (Reported) Entered as Reported by: MAKENNA AGUILAR on 09/12/18 103 Cyanocobalamin (Cyanocobalamin Injection) 1,000 Mcg/Ml Inj, 1,000 MCG INJ MONTHLY, (Reported) Entered as Reported by: MAKENNA AGUILAR on 02/14/16919 Docusate Sodium (Colace) 100 Mg Capsule, 100 MG PO DAILY, (Reported) Entered as Reported by: MAKENNA AGUILAR on 08/27/16 08 Fexofenadine HCl (Renetta Allergy) 180 Mg Tablet, 180 MG PO DAILY PRN for ALLERGIES, (Reported) Entered as Reported by: MAKENNA AGUILAR on 11/25/17925 Guaifenesin/Dextromethorphan (Coricidin Hbp Softgel) 1 Each Capsule, 1 CAP PO DAILY PRN for ALLERGIES, (Reported) Entered as Reported by: MAKENNA AGUILAR on 09/12/18 103 Irbesartan (Irbesartan) 300 Mg Tablet, 300 MG PO DAILY, (Reported) Entered as Reported by: MAKENNA AGUILAR on 02/14/16919 Lactulose (Lactulose) 10 Gm/15 Ml Solution, 15 ML PO DAILY PRN for CONSTIPATION- 3RD LINE, (Reported) Entered as Reported by: MAKENNA AGUILAR on 09/12/18 103 Levothyroxine Sodium (Levothyroxine Sodium) 50 Mcg Tablet, 50 MCG PO DAILY, (Reported) Entered as Reported by: MAKENNA AGUILAR on 02/14/16919 Omeprazole (Omeprazole) 40 Mg Capsule.dr, 40 MG PO HS, (Reported) Entered as Reported by: MAKENNA AGUILAR on 11/25/17925 Polyethylene Glycol 3350 (Miralax) 17 Gm Powd.pack, 17 GM PO DAILY PRN for CONSTIPATION-2ND LINE, (Reported) Entered as Reported by: MAKENNA AGUILAR on 11/25/17925 Potassium Chloride (Potassium Chloride) 10 Meq Tab.er.prt, 10 MEQ PO DAILY, (Reported) Entered as Reported by: MAKENNA AGUILAR on 11/25/17925 Temazepam (Temazepam) 15 Mg Capsule, 15 MG PO HS PRN for INSOMNIA, (Reported) Entered as Reported by: MAKENNA AGUILAR on 11/25/17925 Trimethoprim (Trimethoprim) 100 Mg Tablet, 100 MG PO HS, (Reported) Entered as Reported by: MAKENNA AGUILAR on 11/25/17925 Review of Systems Review of Systems Constitutional: see HPI EENTM: see HPI Respiratory: no symptoms reported Cardiovascular: no symptoms reported Genitourinary: no symptoms reported Musculoskeletal: see HPI Skin: no symptoms reported Psychiatric/Neurological: No Symptoms Reported Hematologic/Lymphatic: No Symptoms Reported Immunological/Allergic: no symptoms reported Past [id number]-[id number]-Bmjxqe Hx Patient Social History Tobacco Use?: No Substance use?: No Alcohol Use?: No Pt feels they are or have been: No Immunizations Up To Date Tetanus Booster (TDap): Less than 5yrs PED Vaccines UTD: No First/Initial COVID19 Vaccinat: 06/12/20 Second COVID19 Vaccination Kun: 07/10/20 COVID19 Vaccine 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 Seasonal Allergies Seasonal Allergies: Yes Past Medical History Surgery/Hospitalization HX: 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, 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, ATRIAL 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 Surgeries: Yes (LAP NIESSEN, ATRIAL CLIPPING) Abdominal, Appendectomy, Cardiac, Gallbladder, Hysterectomy, Pacemaker, Rectal, Thyroidectomy, Tonsillectomy Respiratory: Yes Asthma, Sleep Apnea Currently Using CPAP: Yes Currently Using BIPAP: No Cardiac: Yes (SINUS NODE DYSFUNCTION, ATRIAL CLIPPING) Atrial Fibrillation, Cardiomyopathy, Chronic Edema/Swelling, Coronary Artery Disease, Hypertension Neurological: No 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 Disorders: No 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 Genitourinary: Yes Bladder Infection Gastrointestinal: Yes (dysphagia) Gastrointestinal Bleed, Hemorrhoids, Irritable Bowel Musculoskeletal: Yes (OSTEOARTHRITIS, FX RIGHT LOWER LEG, DISLOCATED RIGHT SHOULDER) Osteoporosis, Arthritis, Fractures Endocrine: Yes (THYROIDECTOMY; DIET CONTROLLED DIABETES) Hypothyroidsim, Diabetes, Non-Insulin dep HEENT: Yes Glaucoma Hearing Impairment: Hard of Hearing Cancer: No Psychosocial: Yes Anxiety, Depression Integumentary: No Blood Disorders: Yes (ANEMIA) Adverse Reaction/Blood Tranf: No Family Medical History Family history: Hypertension 03 FATHER, Onset:40's - 50 09 BROTHER, Onset:40's - 50 History of drug abuse 03 FATHER, Onset:20's - 25 Stroke 03 FATHER, Onset:60 years & older No Pertinent Family Hx Physical Exam Vital Signs Vital Signs - First Documented 04/26/21 12:20 Temp 36.6 Pulse 62 Resp 20 B/P (MAP) 146/79 (101) Pulse Ox 100 Capillary Refill : Less Than 3 Seconds Height, Weight, BMI Height: 5'6.00" Weight: 171lbs. 0.0oz. 77.908568ls; 30.00 BMI Method:Stated General Appearance: No Apparent Distress, WD/WN Eyes: Bilateral Eye Normal Inspection, Bilateral Eye PERRL, Bilateral Eye EOMI HEENT: PERRL/EOMI, TMs Normal Neck: Full Range of Motion, Normal Inspection Respiratory: No Accessory Muscle Use, No Respiratory Distress Cardiovascular: Regular Rate, Rhythm, Normal Peripheral Pulses Gastrointestinal: Normal Bowel Sounds, Non Tender, Soft Extremity: Normal Capillary Refill, Normal Inspection Neurologic/Psychiatric: Alert, Oriented x3 Skin: Normal Color, Warm/Dry Progress/Results/Core Measures Suspected Sepsis SIRS Temperature: Pulse: 62 Respiratory Rate: 20 Laboratory Tests 04/26/21 12:44: White Blood Count 7.8 Blood Pressure 146 /79 Mean: 101 Laboratory Tests 04/26/21 12:44: Creatinine 1.05, Platelet Count 284, Total Bilirubin 0.7 Results/Orders Lab Results Laboratory Tests Test 04/26/21 12:44 04/26/21 14:35 Range/Units White Blood Count 7.8 4.3-11.0 10^3/uL Red Blood Count 5.27 H 3.80-5.11 10^6/uL Hemoglobin 12.0 11.5-16.0 g/dL Hematocrit 40 35-52 % Mean Corpuscular Volume 77 L 80-99 fL Mean Corpuscular Hemoglobin 23 L 25-34 pg Mean Corpuscular Hemoglobin Concent 30 L 32-36 g/dL Red Cell Distribution Width 19.6 H 10.0-14.5 % Platelet Count 284 130-400 10^3/uL Mean Platelet Volume 9.7 9.0-12.2 fL Immature Granulocyte % (Auto) 1 % Neutrophils (%) (Auto) 75 42-75 % Lymphocytes (%) (Auto) 16 12-44 % Monocytes (%) (Auto) 7 0-12 % Eosinophils (%) (Auto) 1 0-10 % Basophils (%) (Auto) 0 0-10 % Neutrophils # (Auto) 5.8 1.8-7.8 10^3/uL Lymphocytes # (Auto) 1.3 1.0-4.0 10^3/uL Monocytes # (Auto) 0.6 0.0-1.0 10^3/uL Eosinophils # (Auto) 0.1 0.0-0.3 10^3/uL Basophils # (Auto) 0.0 0.0-0.1 10^3/uL Immature Granulocyte # (Auto) 0.0 0.0-0.1 10^3/uL Sodium Level 138 135-145 MMOL/L Potassium Level 4.2 3.6-5.0 MMOL/L Chloride Level 109 H 98-107 MMOL/L Carbon Dioxide Level 21 21-32 MMOL/L Anion Gap 8 5-14 MMOL/L Blood Urea Nitrogen 22 H 7-18 MG/DL Creatinine 1.05 0.60-1.30 MG/DL Estimat Glomerular Filtration Rate 50 BUN/Creatinine Ratio 21 Glucose Level 153 H 70-105 MG/DL Calcium Level 9.3 8.5-10.1 MG/DL Corrected Calcium 9.4 8.5-10.1 MG/DL Total Bilirubin 0.7 0.1-1.0 MG/DL Aspartate Amino Transf (AST/SGOT) 15 5-34 U/L Alanine Aminotransferase (ALT/SGPT) 13 0-55 U/L Alkaline Phosphatase 82 40-136 U/L Troponin I < 0.028 <0.028 NG/ML Total Protein 7.5 6.4-8.2 GM/DL Albumin 3.9 3.2-4.5 GM/DL Urine Color YELLOW Urine Clarity CLEAR Urine pH 5.5 5-9 Urine Specific [place] >=1.030 1.016-1.022 Urine Protein NEGATIVE NEGATIVE Urine Glucose (UA) NEGATIVE NEGATIVE Urine Ketones NEGATIVE NEGATIVE Urine Nitrite NEGATIVE NEGATIVE Urine Bilirubin NEGATIVE NEGATIVE Urine Urobilinogen 0.2 < = 1.0 MG/DL Urine Leukocyte Esterase 1+ H NEGATIVE Urine RBC (Auto) NEGATIVE NEGATIVE Urine RBC NONE /HPF Urine WBC 5-10 H /HPF Urine Squamous Epithelial Cells 5-10 /HPF Urine Crystals NONE /LPF Urine Bacteria MODERATE H /HPF Urine Casts NONE /LPF Urine Mucus NEGATIVE /LPF Urine Culture Indicated YES My Orders Orders - ZENIA MEDINA APRN Ua Culture If Indicated (04/26/21 12:47) Cbc With Automated Diff (04/26/21 12:47) Comprehensive Metabolic Panel (04/26/21 12:47) Troponin I [place] (04/26/21 12:47) Ekg Tracing (04/26/21 12:47) Chest 1 View, Ap/Pa Only (04/26/21 12:47) Ed Iv/Invasive Line Start (04/26/21 12:47) Antacid Suspension (Mylanta Suspension (04/26/21 13:00) Lidocaine 2% Viscous 15 Ml (Xylocaine Vi (04/26/21 13:00) Urine Culture (04/26/21 14:35) Medications Given in ED Current Medications Medications Dose Ordered Sig/Cora Route Start Time Stop Time Status Last Admin Dose Admin Al Hydrox/Mg Hydrox/Simethicone 30 ml ONCE ONCE PO 04/26/21 13:00 04/26/21 13:01 DC 04/26/21 13:14 30 ML Lidocaine HCl 15 ml ONCE ONCE PO 04/26/21 13:00 04/26/21 13:01 DC 04/26/21 13:14 15 ML Vital Signs/I&O 04/26/21 12:20 Temp 36.6 Pulse 62 Resp 20 B/P (MAP) 146/79 (101) Pulse Ox 100 Capillary Refill : Less Than 3 Seconds Blood Pressure Mean: 101 Departure Impression Primary Impression: Chest pain Disposition: HOME, SELF-CARE Condition: Stable Departure-Patient Inst. Decision time for Depature: 15:07 Referrals: ESTHER DANIELLE DO (PCP/Family) Primary Care Physician Patient Instructions: Chest Pain, Adult ED Add. Discharge Instructions: 1. Return to ER for any concerns 2. Follow-up with your doctor next week. We will call you if your urine culture shows indication for other antibiotic. In the meantime you can continue your Cipro. All discharge instructions reviewed with patient and/or family. Voiced understanding. ZENIA MEDINA APRN Apr 26, 2021 13:01
[2021-04-26 13:02] LABS: CHLORIDE 109 MMOL/L (98-107); POTASSIUM 4.2 MMOL/L (3.6-5.0); SODIUM 138 MMOL/L (135-145)
[2021-04-26 13:03] LABS: CALCIUM 9.3 MG/DL (8.5-10.1)
[2021-04-26 13:04] LABS: GLUCOSE 153 MG/DL (70-105); TOTAL PROTEIN 7.5 GM/DL (6.4-8.2)
[2021-04-26 13:05] LABS: CARBON DIOXIDE 21 MMOL/L (21-32)
[2021-04-26 13:06] LABS: BILIRUBIN,TOTAL 0.7 MG/DL (0.1-1.0)
[2021-04-26 13:07] LABS: ALKALINE PHOSPHATASE 82 U/L (40-136)
[2021-04-26 13:08] LABS: CREATININE SERUM 1.05 MG/DL (0.60-1.30); GFR ESTIMATED 50
[2021-04-26 13:09] LABS: BUN/CREATININE RATIO 21
[2021-04-26 13:11] LABS: ALANINE AMINOTRANSFERASE 13 U/L (0-55)
--- NOTE | 2021-04-26 13:22 | Diagnostic Imaging Report ---
Indication: Chest pain. TIME OF EXAM: 1:02 PM Correlation is made with prior chest 10/12/2020. Heart size stable. Cardiac pacemaker remains in place. No infiltrate or failure is detected. There is no effusion or pneumothorax. IMPRESSION: Stable chest. No acute features detected. Dictated by: Dictated on workstation # [id number]
[2021-04-26 14:44] LABS: BILIRUBIN,URINE NEGATIVE (NEGATIVE); CLARITY,URINE CLEAR; COLOR,URINE YELLOW; GLUCOSE, URINE (UA) NEGATIVE (NEGATIVE); KETONES,URINE NEGATIVE (NEGATIVE); LEUKOCYTE ESTERASE ,URINE 1+ (NEGATIVE); NITRITE,URINE NEGATIVE (NEGATIVE); PH,URINE 5.5 (5-9); PROTEIN,URINE NEGATIVE (NEGATIVE)
[2021-04-26 14:53] LABS: BACTERIA,URINE MODERATE /HPF
[2021-04-26] MEDS ORDERED: CIPR500T5 PO (15:32)
[2021-04-26 15:36] VITALS: BP 141/73
== END 2021-04-26 15:36 | disposition home or self-care (01) ==
LOC: EDUNIT# 12:09 → ER 12:13
DX: R07.9 Chest pain, unspecified (principal); J45.909 Unspecified asthma, uncomplicated; G47.30 Sleep apnea, unspecified; I10 Essential (primary) hypertension; I25.10 Atherosclerotic heart disease of native coronary artery without angina pectoris; F41.9 Anxiety disorder, unspecified; I48.91 Unspecified atrial fibrillation; H40.9 Unspecified glaucoma; E03.9 Hypothyroidism, unspecified; E11.9 Type 2 diabetes mellitus without complications; Z79.899 Other long term (current) drug therapy; Z79.890 Hormone replacement therapy
CPT/HCPCS: 36415; 71045; 80053; 81000; 84484; 85025; 87088; 93005

== ENCOUNTER 2021-05-05 00:31 | Emergency (ER) | payer MEDICARE, MEDICAID ==
[2021-05-05] MEDS ORDERED: FAMOTIDINE 20MG/2ML IV (PEPCID) IV STA (00:38)
[2021-05-05] MEDS ORDERED: ANTACID SUSP 30 ML UDC (MYLANTA) PO ONE (00:45)
[2021-05-05] MEDS ORDERED: LIDOCAINE 2% VISCOUS 15 ML UDC PO ONE (00:45)
[2021-05-05] MEDS ORDERED: ONDANSETRON 4 MG/2 ML (SDV) Z0FRAN IVP ONE (00:45)
[2021-05-05 00:47] LABS: BASOPHILS # (AUTO) 0.1 10^3/uL (0.0-0.1); BASOPHILS % (AUTO) 1 % (0-10); EOSINOPHILS # (AUTO) 0.2 10^3/uL (0.0-0.3); EOSINOPHILS % (AUTO) 3 % (0-10); HEMATOCRIT 41 % (35-52); HEMOGLOBIN 12.1 g/dL (11.5-16.0); LYMPHOCYTES # (AUTO) 1.9 10^3/uL (1.0-4.0); LYMPHOCYTES % (AUTO) 24 % (12-44); MEAN CORPUSCULAR HEMOGLOBIN 23 pg (25-34); MEAN CORPUSCULAR HGB CONC 30 g/dL (32-36); MEAN CORPUSCULAR VOLUME 77 fL (80-99); MEAN PLATELET VOLUME 9.7 fL (9.0-12.2); MONOCYTES # (AUTO) 0.6 10^3/uL (0.0-1.0); MONOCYTES % (AUTO) 8 % (0-12); NEUTROPHILS # (AUTO) 4.9 10^3/uL (1.8-7.8); NEUTROPHILS % (AUTO) 64 % (42-75); PLATELET COUNT 264 10^3/uL (130-400); WHITE BLOOD COUNT 7.6 10^3/uL (4.3-11.0)
[2021-05-05 00:59] LABS: ALBUMIN 3.8 GM/DL (3.2-4.5)
[2021-05-05 01:00] LABS: CALCIUM 9.3 MG/DL (8.5-10.1)
[2021-05-05 01:02] LABS: TOTAL PROTEIN 7.2 GM/DL (6.4-8.2)
[2021-05-05 01:03] LABS: BILIRUBIN,TOTAL 0.6 MG/DL (0.1-1.0)
[2021-05-05 01:05] LABS: CREATININE SERUM 1.04 MG/DL (0.60-1.30)
[2021-05-05 01:08] LABS: MAGNESIUM 2.5 MG/DL (1.6-2.4)
[2021-05-05] MEDS ORDERED: SUCR1ORA5 PO (04:51)
--- NOTE | 2021-05-05 04:51 | ED Chest Pain ---
General Chief Complaint: Chest Pain Stated Complaint: CHEST PAIN Nursing Triage Note: Patient presented to the ER tonight via EMS with complaints of chest pain that began at 2349 and awoke her from sleeping. Patient describes the pain as a heavy pressure. Source: patient, EMS, old records Exam Limitations: no limitations History of Present Illness Date Seen by Provider: May 05, 2021 Time Seen by Provider: 00:37 Initial Comments This 86-year-old woman presents to the emergency room via EMS with complaints of central chest pain that woke her from sleep. She had associated diaphoresis. She has history of atrial fibrillation and atrial clip. She also has history of any notable hiatal hernia for which she has been taking Carafate and sees Dr. Acosta. She had a similar episode on April 26 and was evaluated and discharged from the ER. Allergies and Home Medications Allergies Coded Allergies: levofloxacin (Unverified Allergy, Mild, RASH, 11/13/18) Penicillins (Verified Allergy, Unknown, 11/13/18) Shellfish (Verified Allergy, Unknown, 11/13/18) Sulfa (Sulfonamide Antibiotics) (Verified Allergy, Unknown, 11/13/18) azithromycin (Unverified Allergy, Unknown, ITCHING, 11/13/18) cephalexin (Verified Allergy, Unknown, 11/13/18) erythromycin base (Verified Allergy, Unknown, 11/13/18) furosemide (Verified Allergy, Unknown, 11/13/18) nitrofurantoin (Unverified Allergy, Unknown, ITCHING/"THICK TONGUE", 11/13/18) tetracycline (Verified Allergy, Unknown, 11/13/18) Uncoded Allergies: TAPE (Allergy, Unknown, 07/26/07) Patient Home Medication List Home Medication List Reviewed: Yes ALPRAZolam (Xanax Tablet) 0.25 Mg Tablet, 0.5-1 TAB PO Q8H PRN for ANXIETY, (Reported) Entered as Reported by: MAKENNA AGUILAR on 02/14/16 0920 Amiodarone HCl (Amiodarone HCl) 200 Mg Tablet, 100 MG PO DAILY, (Reported) Entered as Reported by: MAKENNA AGUILAR on 11/25/17 0926 Amlodipine Besylate (Amlodipine Besylate) 5 Mg Tablet, 5 MG PO DAILY, (Reported) Entered as Reported by: MAKENNA AGUILAR on 08/27/16 0833 Bimatoprost (Lumigan) 2.5 Ml Drops, 1 DROP OU HS, (Reported) Entered as Reported by: MAKENNA AGUILAR on 09/12/18 103 Ciprofloxacin HCl (Ciprofloxacin HCl) 500 Mg Tablet, 500 MG PO BID Prescribed by: ZENIA MEDINA on 04/26/21 153 Cyanocobalamin (Cyanocobalamin Injection) 1,000 Mcg/Ml Inj, 1,000 MCG INJ MONTHLY, (Reported) Entered as Reported by: MAKENNA AGUILAR on 02/14/16 09 Docusate Sodium (Colace) 100 Mg Capsule, 100 MG PO DAILY, (Reported) Entered as Reported by: MAKENNA AGUILAR on 08/27/16 08 Fexofenadine HCl (Renetta Allergy) 180 Mg Tablet, 180 MG PO DAILY PRN for ALLERG IES, (Reported) Entered as Reported by: MAKENNA AGUILAR on 11/25/17 09 Guaifenesin/Dextromethorphan (Coricidin Hbp Softgel) 1 Each Capsule, 1 CAP PO DAILY PRN for ALLERGIES, (Reported) Entered as Reported by: MAKENNA AGUILAR on 09/12/18 103 Irbesartan (Irbesartan) 300 Mg Tablet, 300 MG PO DAILY, (Reported) Entered as Reported by: MAKENNA AGUILAR on 02/14/16 09 Lactulose (Lactulose) 10 Gm/15 Ml Solution, 15 ML PO DAILY PRN for CONSTIPATION- 3RD LINE, (Reported) Entered as Reported by: MAKENNA AGUILAR on 09/12/18 103 Levothyroxine Sodium (Levothyroxine Sodium) 50 Mcg Tablet, 50 MCG PO DAILY, (Reported) Entered as Reported by: MAKENNA AGUILAR on 02/14/16 09 Omeprazole (Omeprazole) 40 Mg Capsule.dr, 40 MG PO HS, (Reported) Entered as Reported by: MAKENNA AGUILAR on 11/25/17 09 Polyethylene Glycol 3350 (Miralax) 17 Gm Powd.pack, 17 GM PO DAILY PRN for CONSTIPATION-2ND LINE, (Reported) Entered as Reported by: MAKENNA AGUILAR on 11/25/17 09 Potassium Chloride (Potassium Chloride) 10 Meq Tab.er.prt, 10 MEQ PO DAILY, (Reported) Entered as Reported by: MAKENNA AGUILAR on 11/25/17925 Sucralfate (Carafate) 1 Gm/10 Ml Oral.susp, 1 GM PO QID Prescribed by: DEVI KO on 05/05/21 0451 Temazepam (Temazepam) 15 Mg Capsule, 15 MG PO HS PRN for INSOMNIA, (Reported) Entered as Reported by: MAKENNA AGUILAR on 11/25/17925 Trimethoprim (Trimethoprim) 100 Mg Tablet, 100 MG PO HS, (Reported) Entered as Reported by: MAKENNA AGUILAR on 11/25/17925 Review of Systems Review of Systems Constitutional: see HPI, diaphoresis EENTM: No Symptoms Reported Respiratory: No Symptoms Reported Cardiovascular: See HPI Gastrointestinal: No Symptoms Reported Genitourinary: No Symptoms Reported Musculoskeletal: no symptoms reported Skin: no symptoms reported Psychiatric/Neurological: No Symptoms Reported Endocrine: No Symptoms Reported Hematologic/Lymphatic: No Symptoms Reported Past Hymnfon-Gdspdu-Bndyxw Hx Patient Social History Tobacco Use?: No Substance use?: No Alcohol Use?: No Immunizations Up To Date Tetanus Booster (TDap): Less than 5yrs PED Vaccines UTD: No First/Initial COVID19 Vaccinat: 06/12/20 Second COVID19 Vaccination Kun: 07/10/20 Third COVID19 Vaccination Date: 06/12/20 Seasonal Allergies Seasonal Allergies: Yes Past Medical History Surgery/Hospitalization HX: 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, 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, 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 Surgeries: Yes (LAP NIESSEN, ATRIAL CLIPPING) Abdominal, Appendectomy, Cardiac, Gallbladder, Hysterectomy, Pacemaker, Rectal, Thyroidectomy, Tonsillectomy Respiratory: Yes Asthma, Sleep Apnea Currently Using CPAP: Yes Currently Using BIPAP: No Cardiac: Yes (SINUS NODE DYSFUNCTION, ATRIAL CLIPPING) Atrial Fibrillation, Cardiomyopathy, Chronic Edema/Swelling, Coronary Artery Disease, Hypertension Neurological: No 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 Disorders: 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 Genitourinary: Yes Bladder Infection Gastrointestinal: Yes (dysphagia) Gastrointestinal Bleed, Hemorrhoids, Irritable Bowel Musculoskeletal: Yes (OSTEOARTHRITIS, FX RIGHT LOWER LEG, DISLOCATED RIGHT SHOULDER) Osteoporosis, Arthritis, Fractures Endocrine: Yes (THYROIDECTOMY; DIET CONTROLLED DIABETES) Hypothyroidsim, Diabetes, Non-Insulin dep HEENT: Yes Glaucoma Hearing Impairment: Hard of Hearing Cancer: No Psychosocial: Yes Anxiety, Depression Integumentary: No Blood Disorders: Yes (ANEMIA) Adverse Reaction/Blood Tranf: No Family Medical History Family history: Hypertension 03 FATHER, Onset:40's - 50 09 BROTHER, Onset:40's - 50 History of drug abuse 03 FATHER, Onset:20's - 25 Stroke 03 FATHER, Onset:60 years & older No Pertinent Family Hx Physical Exam Vital Signs Vital Signs - First Documented 05/05/21 05/05/21 00:33 00:39 Temp 36.2 Pulse 80 Resp 18 B/P (MAP) 143/84 Pulse Ox 96 O2 Delivery Room Air Capillary Refill : Less Than 3 Seconds Height, Weight, BMI Height: 5'6.00" Weight: 171lbs. 0.0oz. 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 Norm as Tested Skin: Normal Color, Warm/Dry Progress/Results/Core Measures Results/Orders Lab Results Laboratory Tests Test 05/05/21 00:38 05/05/21 03:30 Range/Units White Blood Count 7.6 4.3-11.0 10^3/uL Red Blood Count 5.30 H 3.80-5.11 10^6/uL Hemoglobin 12.1 11.5-16.0 g/dL Hematocrit 41 35-52 % Mean Corpuscular Volume 77 L 80-99 fL Mean Corpuscular Hemoglobin 23 L 25-34 pg Mean Corpuscular Hemoglobin Concent 30 L 32-36 g/dL Red Cell Distribution Width 19.7 H 10.0-14.5 % Platelet Count 264 130-400 10^3/uL Mean Platelet Volume 9.7 9.0-12.2 fL Immature Granulocyte % (Auto) 1 % Neutrophils (%) (Auto) 64 42-75 % Lymphocytes (%) (Auto) 24 12-44 % Monocytes (%) (Auto) 8 0-12 % Eosinophils (%) (Auto) 3 0-10 % Basophils (%) (Auto) 1 0-10 % Neutrophils # (Auto) 4.9 1.8-7.8 10^3/uL Lymphocytes # (Auto) 1.9 1.0-4.0 10^3/uL Monocytes # (Auto) 0.6 0.0-1.0 10^3/uL Eosinophils # (Auto) 0.2 0.0-0.3 10^3/uL Basophils # (Auto) 0.1 0.0-0.1 10^3/uL Immature Granulocyte # (Auto) 0.1 0.0-0.1 10^3/uL Prothrombin Time 13.0 12.2-14.7 SEC INR Comment 1.0 0.8-1.4 Activated Partial Thromboplast Time 29 24-35 SEC Sodium Level 140 135-145 MMOL/L Potassium Level 4.0 3.6-5.0 MMOL/L Chloride Level 106 98-107 MMOL/L Carbon Dioxide Level 21 21-32 MMOL/L Anion Gap 13 5-14 MMOL/L Blood Urea Nitrogen 20 H 7-18 MG/DL Creatinine 1.04 0.60-1.30 MG/DL Estimat Glomerular Filtration Rate 50 BUN/Creatinine Ratio 19 Glucose Level 193 H 70-105 MG/DL Calcium Level 9.3 8.5-10.1 MG/DL Corrected Calcium 9.5 8.5-10.1 MG/DL Magnesium Level 2.5 H 1.6-2.4 MG/DL Total Bilirubin 0.6 0.1-1.0 MG/DL Aspartate Amino Transf (AST/SGOT) 16 5-34 U/L Alanine Aminotransferase (ALT/SGPT) 13 0-55 U/L Alkaline Phosphatase 88 40-136 U/L Myoglobin 35.9 10.0-92.0 NG/ML Troponin I < 0.028 < 0.028 <0.028 NG/ML Total Protein 7.2 6.4-8.2 GM/DL Albumin 3.8 3.2-4.5 GM/DL My Orders Orders - DEVI BERGERON MD Cbc With Automated Diff (05/05/21 00:38) Magnesium (05/05/21 00:38) Chest 1 View, Ap/Pa Only (05/05/21 00:38) Ekg Tracing (05/05/21 00:38) Comprehensive Metabolic Panel (05/05/21 00:38) Myoglobin Serum (05/05/21 00:38) Protime With Inr (05/05/21 00:38) Partial Thromboplastin Time (05/05/21 00:38) O2 (05/05/21 00:38) Monitor-Rhythm Ecg Trace Only (05/05/21 00:38) Ed Iv/Invasive Line Start (05/05/21 00:38) Troponin I Rinku (05/05/21 00:38) Ondansetron Injection (Zofran Injectio (05/05/21 00:45) Lidocaine 2% Viscous 15 Ml (Xylocaine Vi (05/05/21 00:45) Antacid Suspension (Mylanta Suspension (05/05/21 00:45) Famotidine Injection (Pepcid Injection) (05/05/21 00:38) Troponin I Pender (05/05/21 03:30) Medications Given in ED Current Medications Medications Dose Ordered Sig/Cora Route Start Time Stop Time Status Last Admin Dose Admin Al Hydrox/Mg Hydrox/Simethicone 30 ml ONCE ONCE PO 05/05/21 00:45 05/05/21 00:46 DC 05/05/21 00:46 30 ML Lidocaine HCl 15 ml ONCE ONCE PO 05/05/21 00:45 05/05/21 00:46 DC 05/05/21 00:47 15 ML Ondansetron HCl 4 mg ONCE ONCE IVP 05/05/21 00:45 05/05/21 00:46 DC 05/05/21 00:46 4 MG Vital Signs/I&O 05/05/21 05/05/21 05/05/21 00:33 00:39 04:54 Temp 36.2 Pulse 80 86 Resp 18 18 B/P (MAP) 143/84 163/83 Pulse Ox 96 96 97 O2 Delivery Room Air Room Air Room Air Blood Pressure Mean: 103 Progress Progress Note : Progress Note Work-up was unremarkable. Pain did improve notably with a GI cocktail. Pain did return but was more mild and intermittent rather than constant. Repeat troponin was also negative. Patient states she has difficulty using the Carafate because she has a hard time dissolving or crushing it. I am prescribing the liquid Carafate as a substitute. I also stressed the importance of good to do a her antacid therapy. Initial ECG Impression Date: May 05, 2021 Initial ECG Impression Time: 00:33 Initial ECG Rate: 86 Comment Atrial paced rhythm with no ST elevation or depression. PVC noted. No axis deviation Diagnostic Imaging Diagonstic Imaging: Xray Plain Films/CT/US/NM/MRI: chest Comments NAME: GARFIELD MCKEON MED REC#: [id number] PT STATUS: DEP ER : 1935 PHYSICIAN: DEVI BERGERON MD ADMIT DATE: 05/05/21/ER Signed Date of Exam:05/05/21 CHEST 1 VIEW, AP/PA ONLY EXAMINATION: Chest 1 view HISTORY: Chest pain. COMPARISON: 04/26/2021. FINDINGS: The lung volumes are normal. No focal consolidation is seen. No large pleural effusion or pneumothorax is seen. The cardiomediastinal silhouette is prominent with left pectoral pacemaker in place. No acute osseous abnormality is seen. IMPRESSION: 1. Stable cardiomegaly. No overt pulmonary edema. Dictated by: Dictated on workstation # [id number] Dict: 05/05/21609 Trans: 05/05/21616 [id number] Interpreted by: AYDE FLOOD DO Electronically signed by: AYDE FLOOD DO 05/05/21616 Departure Impression Primary Impression: Chest pain Qualified Codes: R07.9 - Chest pain, unspecified Additional Impression: Hiatal hernia Disposition: 01 HOME, SELF-CARE Condition: Improved Departure-Patient Inst. Decision time for Depature: 04:46 Patient Instructions: Chest Pain, Hiatal Hernia Add. Discharge Instructions: Continue taking Pepcid and consider restarting Protonix as well. Continue taking Carafate. A prescription for the liquid formulation was sent to the pharmacy. Try this formulation if not cost prohibitive. Follow-up with your primary care provider and your farm equipment engineer as soon as possible. Avoid the following: Eating large meals, eating close to bedtime, caffeine, carbonation, chocolate, citrus fruits and juices, tomato products, spicy foods, fatty or greasy foods, mints, alcohol, tobacco, NSAID medications such as ibuprofen or naproxen, or anything else you know irritates your stomach. Call with questions or concerns. Return to the ER if you have worsening symptoms. All discharge instructions reviewed with patient and/or family. Voiced understanding. Scripts Sucralfate (Carafate) 1 Gm/10 Ml Oral.susp 1 GM PO QID, #120 ML Shake well before use. Take 30 min before meals and bed time. Prov: DEVI BERGERON MD 05/05/21 Copy Copies To 1: GAMALIEL ACOSTA DO Copies To 2: BEBETO HOLLINGSWORTH MD, JOSHUA T MD May 05, 2021 04:51
[2021-05-05 04:54] VITALS: BP 163/83
--- NOTE | 2021-05-05 06:14 | Diagnostic Imaging Report ---
EXAMINATION: Chest 1 view HISTORY: Chest pain. COMPARISON: 04/26/2021. FINDINGS: The lung volumes are normal. No focal consolidation is seen. No large pleural effusion or pneumothorax is seen. The cardiomediastinal silhouette is prominent with left pectoral pacemaker in place. No acute osseous abnormality is seen. IMPRESSION: 1. Stable cardiomegaly. No overt pulmonary edema. Dictated by: Dictated on workstation # [id number]
== END 2021-05-05 04:54 | disposition home or self-care (01) ==
LOC: EDUNIT# 00:31 → ER 00:33
DX: R07.89 Other chest pain (principal); K44.9 Diaphragmatic hernia without obstruction or gangrene; I10 Essential (primary) hypertension; E11.9 Type 2 diabetes mellitus without complications; J45.909 Unspecified asthma, uncomplicated; I48.91 Unspecified atrial fibrillation; I25.10 Atherosclerotic heart disease of native coronary artery without angina pectoris; F41.9 Anxiety disorder, unspecified; F32.A Depression, unspecified; M81.0 Age-related osteoporosis without current pathological fracture; E03.9 Hypothyroidism, unspecified; G47.30 Sleep apnea, unspecified; Z95.0 Presence of cardiac pacemaker; Z99.89 Dependence on other enabling machines and devices; Z79.890 Hormone replacement therapy; Z79.899 Other long term (current) drug therapy
CPT/HCPCS: 36415; 71045; 80053; 83735; 83874; 84484; 85025; 85610; 85730; 93005; 93041

== ENCOUNTER 2021-05-07 12:50 | Outpatient (RCR) | payer MEDICARE, MEDICAID ==
[~2021-05-07 12:50] MED LIST changes: +SUCR1ORA5 PO
== END 2021-05-07 15:05 | disposition home or self-care (01) ==
PROVIDERS: ATTEND Surgery
DX: R13.10 Dysphagia, unspecified (principal)

== ENCOUNTER 2021-05-28 05:29 | Outpatient (RCR) | payer MEDICARE, MEDICAID ==
[~2021-05-28] VITALS: Ht 167.6 cm; Wt 86.1 kg
== END 2021-05-28 11:04 | disposition home health service, planned readmission (86) ==
LOC: PREOP 05:29
PROVIDERS: ATTEND Surgery
DX: Z01.812 Encounter for preprocedural laboratory examination (principal); K21.9 Gastro-esophageal reflux disease without esophagitis; Z20.822 Contact with and (suspected) exposure to COVID-19
CPT/HCPCS: 87635

== ENCOUNTER 2021-05-30 11:21 | Day surgery (SDC) | payer MEDICARE, MEDICAID ==
[~2021-05-30] VITALS: Ht 167.6 cm; Wt 81.1 kg
[2021-05-30] MEDS ORDERED: LACTATED RINGERS 1,000 ML IV STA (11:24)
[2021-05-30] MEDS ORDERED: LACTATED RINGERS 1,000 ML IV ONE (11:29)
[2021-05-30] MEDS ORDERED: HURRICAINE EXT TUBE (BENZOCAINE) XX PRN (11:30)
[2021-05-30 11:50] VITALS: BP 165/79
--- NOTE | 2021-05-30 12:35 | Progress Note-Pre Operative ---
Pre-Operative Progress Note H&P Reviewed The H&P was reviewed, patient examined and no changes noted. Date Seen by Provider: May 30, 2021 Time Seen by Provider: 12:34 Date H&P Reviewed: May 30, 2021 Time H&P Reviewed: 12:34 Pre-Operative Diagnosis: epigastric pain, gerd GAMALIEL ACOSTA DO May 30, 2021 12:35
[2021-05-30] MEDS ORDERED: proPOfol 200 MG/20 ML (DIPRIVAN) VIAL IV ONE (13:15)
--- NOTE | 2021-05-30 13:28 | Progress Note-Post Operative ---
Post-Operative Progess Note Surgeon (s)/Investment Associate (s) Surgeon GAMALIEL ACOSTA DO Investment Associate: na Pre-Operative Diagnosis epigastric pain, gerd Post-Operative Diagnosis paraesophageal hernia Procedure & Operative Findings Date of Procedure 05/30/21 Procedure Performed/Findings egd Anesthesia Type per transportation agent Estimated Blood Loss Estimated blood loss (mL): none Specimens/Packing Specimens Removed na GAMALIEL ACOSTA DO May 30, 2021 13:28
[2021-05-30 13:30] VITALS: BP 100/51
--- NOTE | 2021-05-30 13:30 | Discharge Inst-Simple/Standard ---
Discharge Inst-Standard Patient Instructions/Follow Up Plan of Care/Instructions/FU: 2 weeks Cora Activity as Tolerated: Yes Discharge Diet: Regular Diet (small frequent meals) GAMALIEL ACOSTA DO May 30, 2021 13:30
--- NOTE | 2021-05-30 13:30 | Anesthesia-General Post-Op ---
MAC Patient Condition Mental Status/LOC: Same as Preop Cardiovascular: Satisfactory Nausea/Vomiting: Absent Respiratory: Satisfactory Pain: Controlled Complications: Absent Post Op Complications Complications None Follow Up Care/Instructions Patient Instructions None needed. Anesthesiology Discharge Order Discharge Order Patient is doing well, no complaints, stable vital signs, no apparent adverse anesthesia problems. No complications reported per nursing. YULIYA BADILLO CRNA May 30, 2021 13:30
[2021-05-30 13:34] VITALS: BP 100/49
[2021-05-30 14:05] VITALS: BP 144/80
--- NOTE | 2021-05-30 19:22 | OPERATIVE REPORT ---
DATE OF SERVICE: 05/30/2021 PREOPERATIVE DIAGNOSES: Epigastric abdominal pain and gastroesophageal reflux disease. POSTOPERATIVE DIAGNOSIS: Paraesophageal hernia. PROCEDURE PERFORMED: EGD. SURGEON: Gamaliel Shepherd DO. ANESTHESIA: Per PERFECT BINDER FEEDER OFFBEARER. ESTIMATED BLOOD LOSS: None. COMPLICATIONS: None. INDICATIONS FOR PROCEDURE: The patient is an 86-year-old female, who has been having some GERD and epigastric abdominal pain at times. She also has had episodes of dysphagia. She understands the risks and benefits of the procedure and wished to proceed. Consent was signed in the chart. DESCRIPTION OF PROCEDURE: The patient was taken to the endoscopy suite and placed in a left lateral recumbent position. A timeout was performed. Scope was inserted in the mouth, down the esophagus, stomach and into the duodenum without difficulty. No polyps, masses or ulcerations within the duodenum. Scope was slowly retracted back into the stomach, where it was further insufflated. No polyps, masses or ulcerations. Scope was retroflexed noting a paraesophageal hernia. No other pathology. Scope was returned to its normal position, slowly withdrawn to distal esophagus, which had normal appearance. No polyps, masses or ulcerations. Scope was slowly retracted back until completely removed. The patient tolerated the procedure well without any complications and she was taken to the recovery room in a stable condition. RECOMMENDATIONS: The patient was recommended small frequent meals. The patient likely at high risk for surgical intervention. We will further discuss with her on an outpatient basis. Job ID: [id number] DocumentID: [id number] Dictated Date: 05/30/2021 13:33:05 Audio Recording Engineer Date: 05/30/2021 19:21:52 Dictated By: GAMALIEL SHEPHERD DO
== END 2021-05-30 14:33 | disposition home or self-care (01) ==
LOC: ENDO 11:21
PROVIDERS: ATTEND Surgery
DX: K44.9 Diaphragmatic hernia without obstruction or gangrene (principal); K21.9 Gastro-esophageal reflux disease without esophagitis; I11.0 Hypertensive heart disease with heart failure; I50.9 Heart failure, unspecified; I48.91 Unspecified atrial fibrillation; G47.33 Obstructive sleep apnea (adult) (pediatric); J45.909 Unspecified asthma, uncomplicated; E11.9 Type 2 diabetes mellitus without complications; Z99.89 Dependence on other enabling machines and devices; Z90.89 Acquired absence of other organs; Z90.49 Acquired absence of other specified parts of digestive tract; Z98.890 Other specified postprocedural states; Z79.899 Other long term (current) drug therapy
CPT/HCPCS: 82947

== ENCOUNTER 2021-08-04 22:32 | Emergency (ER) | payer MEDICARE, MEDICAID ==
[~2021-08-04] VITALS: Ht 167.7 cm; Wt 81.6 kg
[~2021-08-04 22:32] MED LIST changes: +FEXO-249 PO; -FEXO-46 PO
[2021-08-04] MEDS ORDERED: METOCLOPRAMIDE INJ 10 MG/2 ML (REGLAN) IVP STA (22:51)
[2021-08-04] MEDS ORDERED: FAMOTIDINE 20MG/2ML IV (PEPCID) IV STA (22:51)
--- NOTE | 2021-08-04 22:58 | ED Abdominal Pain ---
General Chief Complaint: General Problems/Pain Stated Complaint: HIATAL HERNIA PAIN, SOB, REFLEX BOTHERING HER Source of Information: Patient Exam Limitations: No Limitations History of Present Illness Date Seen by Provider: Aug 04, 2021 Time Seen by Provider: 22:45 Initial Comments The patient presents ER by private conveyance from home with chief complaint that this evening she is been having some significant GERD with reflux and indigestion. She did take a Pepcid in addition to the pantoprazole she took this morning. She took her last dose of sucralfate. She had a scope A little over a year ago by Dr. Shepherd demonstrating no acid reflux inflammation or polyps. Pathology of biopsies demonstrated no H. pylori and mild chronic esophagitis. She is had a colonoscopy many years ago. She feels like she is aspirating a little bit of her reflux down the wrong pipe tonight which made her out of short coughing episode. She is not coughing anything up. No fevers or chills. She has not taken any antacids yet. She is worried about aspiration of her stomach contents. No history of COPD or asthma. She is not a smoker. She does wear a CPAP at night however. The few days ago the patient had some diarrhea so she took a couple rounds of Imodium. Since then she is not been able to have a bowel movement so she started taking some laxatives recently and passed a very small stool earlier today. Allergies and Home Medications Allergies Coded Allergies: levofloxacin (Unverified Allergy, Mild, RASH, 11/13/18) Penicillins (Verified Allergy, Unknown, 11/13/18) Shellfish (Verified Allergy, Unknown, 11/13/18) Sulfa (Sulfonamide Antibiotics) (Verified Allergy, Unknown, 11/13/18) azithromycin (Unverified Allergy, Unknown, ITCHING, 11/13/18) cephalexin (Verified Allergy, Unknown, 11/13/18) erythromycin base (Verified Allergy, Unknown, 11/13/18) furosemide (Verified Allergy, Unknown, 11/13/18) nitrofurantoin (Unverified Allergy, Unknown, ITCHING/"THICK TONGUE", 11/13/18) tetracycline (Verified Allergy, Unknown, 11/13/18) Uncoded Allergies: TAPE (Allergy, Unknown, 07/26/07) Patient Home Medication List Home Medication List Reviewed: Yes ALPRAZolam (Xanax Tablet) 0.25 Mg Tablet, 0.5-1 TAB PO Q8H PRN for ANXIETY, (Reported) Entered as Reported by: MAKENNA AGUILAR on 02/14/16 09 Amiodarone HCl (Amiodarone HCl) 200 Mg Tablet, 100 MG PO DAILY, (Reported) Entered as Reported by: MAKENNA AGUILAR on 11/25/17 09 Amlodipine Besylate (Amlodipine Besylate) 5 Mg Tablet, 5 MG PO DAILY, (Reported) Entered as Reported by: MAKENNA AGUILAR on 08/27/16 0833 Bimatoprost (Lumigan) 2.5 Ml Drops, 1 DROP OU HS, (Reported) Entered as Reported by: MAKENNA AGUILAR on 09/12/18 103 Cyanocobalamin (Cyanocobalamin Injection) 1,000 Mcg/Ml Inj, 1,000 MCG INJ MONTHLY, (Reported) Entered as Reported by: MAKENNA AGUILAR on 02/14/16919 Fexofenadine HCl (Renetta Allergy) 180 Mg Tablet, 180 MG PO DAILY PRN for ALLERGIES, (Reported) Entered as Reported by: MAKENNA AGUILAR on 11/25/17925 Guaifenesin/Dextromethorphan (Coricidin Hbp Softgel) 1 Each Capsule, 1 CAP PO DAILY PRN for ALLERGIES, (Reported) Entered as Reported by: MAKENNA AGUILAR on 09/12/18 103 Irbesartan (Irbesartan) 300 Mg Tablet, 300 MG PO DAILY, (Reported) Entered as Reported by: MAKENNA AGUILAR on 02/14/16919 Levothyroxine Sodium (Levothyroxine Sodium) 50 Mcg Tablet, 50 MCG PO DAILY, (Reported) Entered as Reported by: MAKENNA AGUILAR on 02/14/16919 Omeprazole (Omeprazole) 40 Mg Capsule.dr, 40 MG PO HS, (Reported) Entered as Reported by: MAKENNA AGUILAR on 11/25/17925 Potassium Chloride (Potassium Chloride) 10 Meq Tab.er.prt, 10 MEQ PO DAILY, (Reported) Entered as Reported by: MAKENNA AGUILAR on 11/25/17 09 Sucralfate (Carafate) 1 Gm/10 Ml Oral.susp, 1 GM PO QID Prescribed by: DEVI KO on 05/05/21 0451 Temazepam (Temazepam) 15 Mg Capsule, 15 MG PO HS PRN for INSOMNIA, (Reported) Entered as Reported by: MAKENNA AGUILAR on 11/25/17925 Trimethoprim (Trimethoprim) 100 Mg Tablet, 100 MG PO HS, (Reported) Entered as Reported by: MAKENNA AGUILAR on 11/25/17925 Review of Systems Review of Systems Constitutional: No chills, No diaphoresis EENTM: No Blurred Vision, No Double Vision Respiratory: Cough; Denies Shortness of Air Cardiovascular: Denies Chest Pain, Denies Lightheadedness Gastrointestinal: Denies Constipated, Denies Diarrhea; Nausea; Denies Vomiting Genitourinary: Denies Burning, Denies Discharge Musculoskeletal: No back pain, No joint pain All Other Systems Reviewed Negative Unless Noted: Yes Past Btaydum-Mxyrbk-Mhiltn Hx Patient Social History Tobacco Use?: No Use of E-Cig and/or Vaping dev: No Immunizations Up To Date Tetanus Booster (TDap): Less than 5yrs PED Vaccines UTD: No First/Initial COVID19 Vaccinat: 06/12/20 Second COVID19 Vaccination Kun: 07/10/20 Third COVID19 Vaccination Date: NO Seasonal Allergies Seasonal Allergies: Yes Past Medical History Surgery/Hospitalization HX: 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, 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, ATRIAL FLIP Surgeries: Yes (LAP NIESSEN, ATRIAL CLIPPING) Abdominal, Appendectomy, Cardiac, Gallbladder, Hysterectomy, Pacemaker, Rectal, Thyroidectomy, Tonsillectomy Respiratory: Yes Asthma, Sleep Apnea Currently Using CPAP: Yes Currently Using BIPAP: No Cardiac: Yes (SINUS NODE DYSFUNCTION, ATRIAL CLIPPING) Atrial Fibrillation, Cardiomyopathy, Chronic Edema/Swelling, Coronary Artery Disease, Hypertension Neurological: No 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 Disorders: No FIRST CRUSHER History: Hysterectomy Genitourinary: Yes Bladder Infection Gastrointestinal: Yes (dysphagia) Gastrointestinal Bleed, Hemorrhoids, Irritable Bowel Musculoskeletal: Yes (OSTEOARTHRITIS, FX RIGHT LOWER LEG, DISLOCATED RIGHT SHOULDER) Osteoporosis, Arthritis, Fractures Endocrine: Yes (THYROIDECTOMY; DIET CONTROLLED DIABETES) Hypothyroidsim, Diabetes, Non-Insulin dep HEENT: Yes Glaucoma Hearing Impairment: Hard of Hearing Cancer: No Psychosocial: Yes Anxiety, Depression Integumentary: No Blood Disorders: Yes (ANEMIA) Adverse Reaction/Blood Tranf: No Family Medical History Family history: Hypertension 03 FATHER, Onset:40's - 50 09 BROTHER, Onset:40's - 50 History of drug abuse 03 FATHER, Onset:20's - 25 Stroke 03 FATHER, Onset:60 years & older No Pertinent Family Hx Physical Exam Vital Signs Vital Signs - First Documented 08/04/21 22:43 Temp 36.9 Pulse 86 Resp 22 B/P (MAP) 160/81 (107) Pulse Ox 98 Capillary Refill : Height/Weight/BMI Height: 5'6.00" Weight: 171lbs. 0.0oz. 77.525485dn; 28.87 BMI Method:Stated General Appearance: WD/WN, mild distress HEENT: PERRL/EOMI, pharynx normal Neck: full range of motion, normal inspection Respiratory: lungs clear, normal breath sounds, no respiratory distress, no accessory muscle use Cardiovascular: normal peripheral pulses, regular rate, rhythm Peripheral Pulses: 2+ Radial Pulses (R), 2+ Radial Pulses (L) Gastrointestinal: normal bowel sounds, soft; No guarding, No rebound; tenderness (Mild epigastric tenderness without Aguilar sign or mesenteric signs. No guarding or rebounding) Extremities: normal range of motion, normal capillary refill Neurologic/Psychiatric: alert, normal mood/affect, oriented x 3 Skin: normal color, warm/dry Progress/Results/Core Measures Results/Orders Lab Results Laboratory Tests Test 08/04/21 22:54 Range/Units White Blood Count 8.3 4.3-11.0 10^3/uL Red Blood Count 5.18 H 3.80-5.11 10^6/uL Hemoglobin 12.1 11.5-16.0 g/dL Hematocrit 40 35-52 % Mean Corpuscular Volume 78 L 80-99 fL Mean Corpuscular Hemoglobin 23 L 25-34 pg Mean Corpuscular Hemoglobin Concent 30 L 32-36 g/dL Red Cell Distribution Width 18.8 H 10.0-14.5 % Platelet Count 294 130-400 10^3/uL Mean Platelet Volume 9.8 9.0-12.2 fL Immature Granulocyte % (Auto) 0 % Neutrophils (%) (Auto) 61 42-75 % Lymphocytes (%) (Auto) 26 12-44 % Monocytes (%) (Auto) 9 0-12 % Eosinophils (%) (Auto) 2 0-10 % Basophils (%) (Auto) 1 0-10 % Neutrophils # (Auto) 5.1 1.8-7.8 10^3/uL Lymphocytes # (Auto) 2.2 1.0-4.0 10^3/uL Monocytes # (Auto) 0.7 0.0-1.0 10^3/uL Eosinophils # (Auto) 0.2 0.0-0.3 10^3/uL Basophils # (Auto) 0.1 0.0-0.1 10^3/uL Immature Granulocyte # (Auto) 0.0 0.0-0.1 10^3/uL Sodium Level 142 135-145 MMOL/L Potassium Level 4.1 3.6-5.0 MMOL/L Chloride Level 108 H 98-107 MMOL/L Carbon Dioxide Level 21 21-32 MMOL/L Anion Gap 13 5-14 MMOL/L Blood Urea Nitrogen 25 H 7-18 MG/DL Creatinine 1.27 0.60-1.30 MG/DL Estimat Glomerular Filtration Rate 42 BUN/Creatinine Ratio 20 Glucose Level 124 H 70-105 MG/DL Calcium Level 9.9 8.5-10.1 MG/DL Corrected Calcium 9.8 8.5-10.1 MG/DL Total Bilirubin 0.7 0.1-1.0 MG/DL Aspartate Amino Transf (AST/SGOT) 15 5-34 U/L Alanine Aminotransferase (ALT/SGPT) 14 0-55 U/L Alkaline Phosphatase 85 40-136 U/L C-Reactive Protein High Sensitivity 0.15 0.00-0.50 MG/DL Total Protein 7.5 6.4-8.2 GM/DL Albumin 4.1 3.2-4.5 GM/DL My Orders Orders - DENA BLAKE Metoclopramide Injection (Reglan Injecti (08/04/21 22:51) Lidocaine 2% Viscous 15 Ml (Xylocaine Vi (08/04/21 23:00) Antacid Suspension (Mylanta Suspension (08/04/21 23:00) Famotidine Injection (Pepcid Injection) (08/04/21 22:51) Pantoprazole Injection (Protonix Injecti (08/04/21 23:00) Cbc With Automated Diff (08/04/21 22:51) Comprehensive Metabolic Panel (08/04/21 22:51) Hs C Reactive Protein (08/04/21 22:51) Chest Pa/Lat (2 View) (08/04/21 22:51) Ct Abdomen/Pelvis Wo (08/04/21 23:28) Ed Iv/Invasive Line Start (08/04/21 23:29) Ns Iv 500 Ml (Sodium Chloride 0.9%) (08/04/21 23:30) Medications Given in ED Vital Signs/I&O 08/04/21 08/05/21 22:43 01:15 Temp 36.9 Pulse 86 62 Resp 22 B/P (MAP) 160/81 (107) 133/95 Pulse Ox 98 98 Progress Progress Note : Time: 23:33 Progress Note GI cocktail pantoprazole and a little Reglan for her nausea she is diabetic and may be having gastroparesis as part of her symptoms. Chest x-ray was reviewed and does not show any evidence of significant aspiration. Vitals and labs are unremarkable. We discussed prophylactic antibiotics versus watching for symptoms and she says she has a procedure coming up where she was told not to be on antibiotics for at least 30 days so we will just give her return precautions. On the x-ray we noted she had significantly distended bowel gas pattern and had some concern for a bowel obstruction. She does have normal bowel sounds. We will get a noncontrasted CT of her abdomen and pelvis given her history of allergy to shellfish. She is had contrast in the past but her creatinine is borderline so 500 cc of saline and see what we can see on her noncontrast CT. Diagnostic Imaging Diagonstic Imaging: Xray Plain Films/CT/US/NM/MRI: chest (2 view) Comments Stable chest x-ray with pacemaker and atrial clip seen. Little bit more distended bowel gas pattern than seen previously. Soft tissues and osseous structures unremarkable acutely. [facility] [place], [place] NAME: MCKEONGARFIELD MED REC#: [id number] PT STATUS: DEP ER : 1935 PHYSICIAN: DENA BLAKE MD ADMIT DATE: 08/04/21/ER Signed Date of Exam:08/04/21 CHEST PA/LAT (2 VIEW) HISTORY: Aspiration, reflux TECHNIQUE: 2 views of the chest COMPARISON: 05/05/2021 FINDINGS: Lung volumes are large. No consolidation is seen. There is no pleural effusion or pneumothorax. The cardiac silhouette is mildly large. The left-sided pacemaker leads appear normal. IMPRESSION:. Large lung volumes with no acute pulmonary abnormality seen. Dictated by: Dictated on workstation # [id number] Dict: 08/05/21 0703 Trans: 08/05/21925 CV [id number] Interpreted by: SACHI GAN MD Electronically signed by: SACHI GAN MD 08/05/21925 Reviewed: Reviewed by Me Diagonstic Imaging: CT Plain Films/CT/US/NM/MRI: abdomen, pelvis Comments Obstipation/constipation. No evidence for high-grade bowel obstruction. Postsurgical changes again noted in the sigmoid region. At least moderate stool burden throughout the colon with relative sparing of the ectatic splenic flexure, similar morphology to the previous examination. Findings suggest constipation. No free intraperitoneal fluid or pneumoperitoneum. [facility] [place] [place] NAME: MCKEONGARFIELD [facility] REC#: [id number] PT STATUS: DEP ER : 1935 PHYSICIAN: DENA BLAKE MD ADMIT DATE: 08/04/21/ER Signed Date of Exam:08/04/21 CT ABDOMEN/PELVIS WO PROCEDURE: CT abdomen and pelvis without contrast. TECHNIQUE: Multiple contiguous axial images were obtained through the abdomen and pelvis without the use of intravenous contrast. Auto Exposure Controls were utilized during the CT exam to meet ALARA standards for radiation dose reduction. INDICATION: Epigastric abdominal pain COMPARISON: 07/20/2018 FINDINGS: Lung bases are clear. The heart is normal in size. There is no pericardial effusion. The liver demonstrates no focal lesions. There is dilatation of the portal veins in the left lobe. The spleen appears normal. The pancreas appears normal. The adrenal glands appear normal. The kidneys demonstrate no hydronephrosis. There is mild renal atrophy, likely from senescent change. There is atherosclerosis of the aorta with no dilatation. The small bowel loops are nondistended without obstruction. There is marked stool throughout the colon with significant redundancy of the colon. The colon is distended. There is some stool at the rectum. No free fluid or free air seen. No acute osseous abnormality is seen. There are degenerative changes in the spine. IMPRESSION: 1. Marked stool in the redundant colon with distention, particularly at the splenic flexure. This appears to be chronic and no definite obstruction is seen, although distention does appear mildly increased compared to prior studies. Dictated by: Dictated on workstation # [id number] Dict: 08/05/21645 Trans: 08/05/21925 [facility] [phone] Interpreted by: SACHI GAN MD Electronically signed by: SACHI GAN MD 08/05/21925 Reviewed: Reviewed [place] Study, Reviewed by Me Departure Impression Primary Impression: Hiatal hernia with GERD and esophagitis Additional Impression: Obstipation Disposition: HOME, SELF-CARE Condition: Stable Departure-Patient Inst. Decision time for Depature: 01:12 Referrals: ESTHER DANIELLE DO (PCP) Primary Care Physician Patient Instructions: Constipation, Adult (DC) Add. Discharge Instructions: Drink plenty of fluids and MiraLAX 3 or 4 times a day for the next couple days. I would also suggest you get a Fleet enema once a day for the next couple days until you clean out your colon. This will help take some of the pressure off of your stomach which is causing the reflux to be so active lately. All discharge instructions reviewed with patient and/or family. Voiced understanding. DENA BLAKE Aug 04, 2021 22:58
[2021-08-04] MEDS ORDERED: LIDOCAINE 2% VISCOUS 15 ML UDC PO ONE (23:00)
[2021-08-04] MEDS ORDERED: PANTOPRAZOLE 40 MG (PROTONIX) VIAL IV ONE (23:00)
[2021-08-04] MEDS ORDERED: ANTACID SUSP 30 ML UDC (MYLANTA) PO ONE (23:00)
[2021-08-04 23:09] LABS: BASOPHILS # (AUTO) 0.1 10^3/uL (0.0-0.1); BASOPHILS % (AUTO) 1 % (0-10); EOSINOPHILS # (AUTO) 0.2 10^3/uL (0.0-0.3); EOSINOPHILS % (AUTO) 2 % (0-10); HEMATOCRIT 40 % (35-52); HEMOGLOBIN 12.1 g/dL (11.5-16.0); LYMPHOCYTES # (AUTO) 2.2 10^3/uL (1.0-4.0); LYMPHOCYTES % (AUTO) 26 % (12-44); MEAN CORPUSCULAR HEMOGLOBIN 23 pg (25-34); MEAN CORPUSCULAR HGB CONC 30 g/dL (32-36); MEAN CORPUSCULAR VOLUME 78 fL (80-99); MEAN PLATELET VOLUME 9.8 fL (9.0-12.2); MONOCYTES # (AUTO) 0.7 10^3/uL (0.0-1.0); MONOCYTES % (AUTO) 9 % (0-12); NEUTROPHILS # (AUTO) 5.1 10^3/uL (1.8-7.8); NEUTROPHILS % (AUTO) 61 % (42-75); PLATELET COUNT 294 10^3/uL (130-400); WHITE BLOOD COUNT 8.3 10^3/uL (4.3-11.0)
[2021-08-04 23:26] LABS: ALBUMIN 4.1 GM/DL (3.2-4.5); BILIRUBIN,TOTAL 0.7 MG/DL (0.1-1.0); CALCIUM 9.9 MG/DL (8.5-10.1); CREATININE SERUM 1.27 MG/DL (0.60-1.30); POTASSIUM 4.1 MMOL/L (3.6-5.0); TOTAL PROTEIN 7.5 GM/DL (6.4-8.2)
[2021-08-04] MEDS ORDERED: NS IV 500 ML 500 ML IV ONE (23:30)
[2021-08-05 01:15] VITALS: BP 133/95
--- NOTE | 2021-08-05 06:56 | Diagnostic Imaging Report ---
PROCEDURE: CT abdomen and pelvis without contrast. TECHNIQUE: Multiple contiguous axial images were obtained through the abdomen and pelvis without the use of intravenous contrast. Auto Exposure Controls were utilized during the CT exam to meet ALARA standards for radiation dose reduction. INDICATION: Epigastric abdominal pain COMPARISON: 07/20/2018 FINDINGS: Lung bases are clear. The heart is normal in size. There is no pericardial effusion. The liver demonstrates no focal lesions. There is dilatation of the portal veins in the left lobe. The spleen appears normal. The pancreas appears normal. The adrenal glands appear normal. The kidneys demonstrate no hydronephrosis. There is mild renal atrophy, likely from senescent change. There is atherosclerosis of the aorta with no dilatation. The small bowel loops are nondistended without obstruction. There is marked stool throughout the colon with significant redundancy of the colon. The colon is distended. There is some stool at the rectum. No free fluid or free air seen. No acute osseous abnormality is seen. There are degenerative changes in the spine. IMPRESSION: 1. Marked stool in the redundant colon with distention, particularly at the splenic flexure. This appears to be chronic and no definite obstruction is seen, although distention does appear mildly increased compared to prior studies. Dictated by: Dictated on workstation # [id number]
--- NOTE | 2021-08-05 07:08 | Diagnostic Imaging Report ---
HISTORY: Aspiration, reflux TECHNIQUE: 2 views of the chest COMPARISON: 05/05/2021 FINDINGS: Lung volumes are large. No consolidation is seen. There is no pleural effusion or pneumothorax. The cardiac silhouette is mildly large. The left-sided pacemaker leads appear normal. IMPRESSION:. Large lung volumes with no acute pulmonary abnormality seen. Dictated by: Dictated on workstation # [id number]
== END 2021-08-05 01:29 | disposition home or self-care (01) ==
LOC: EDUNIT# 22:32 → ER 22:37
DX: K44.9 Diaphragmatic hernia without obstruction or gangrene (principal); K21.9 Gastro-esophageal reflux disease without esophagitis; K20.90 Esophagitis, unspecified without bleeding
CPT/HCPCS: 36415; 71046; 74176; 80053; 85025; 86141

== ENCOUNTER → 2021-10-10 | Outpatient (CLI) | payer MEDICARE, MEDICAID ==
[~2021-10-10] MED LIST changes: -FEXO-249 PO; +NF-ALLE180 PO
== END ==
LOC: CARD 10:30
PROVIDERS: ATTEND Internal Medicine Cardiovascular Disease
DX: I08.0 Rheumatic disorders of both mitral and aortic valves (principal); I11.9 Hypertensive heart disease without heart failure
CPT/HCPCS: 93306

== ENCOUNTER 2021-11-20 13:20 | Emergency (ER) | payer MEDICARE, MEDICAID ==
[~2021-11-20] VITALS: Ht 167.7 cm; Wt 80.7 kg
--- NOTE | 2021-11-20 15:39 | Diagnostic Imaging Report ---
INDICATION: Abdominal pain and distention. EXAMINATION: KUB at 3:33 p.m. FINDINGS: Lung bases are clear. There is a moderate amount of stool present in the colon. Bowel gas pattern is normal. IMPRESSION: Moderate fecal stasis. Dictated by: Dictated on workstation # [id number]
[2021-11-20] MEDS ORDERED: LACTULOSE SYRUP 10GM/15ML (ENULOSE) 30ML UDC PO ONE (15:45)
--- NOTE | 2021-11-20 15:45 | ED Abdominal Pain ---
General Chief Complaint: Abdominal/GI Problems Stated Complaint: CONSTIPATION, Nursing Triage Note: pt ambulatory to room. pt states she has not had a BM in 4 days, has taken miralax, mag citrate capsules, stool softeners, and an at home enema with no relief. pt states she has right sided pain from it, but also had pulled ribs on that side last week and attributes the pain to this Source of Information: Patient Exam Limitations: No Limitations History of Present Illness Date Seen by Provider: Nov 20, 2021 Time Seen by Provider: 15:45 Initial Comments This is a 86-year-old female who presented to the ER with complaints of constipation. States that she has not had a bowel movement in 4 days. Has taken MiraLAX, mag citrate capsules, stool softeners at home with no results. States that she attempted to do an enema but she was unable to give to herself. She is having some right-sided upper quadrant pain. States that she also had pulled ribs last week on her right side and is unsure if the pain is from that or from her constipation. She denies any fever, chills, nausea, vomiting, dysuria, hematuria. She is still passing gas. No dark, tarry, bloody stools. Allergies and Home Medications Allergies Coded Allergies: levofloxacin (Unverified Allergy, Mild, RASH, 11/13/18) Penicillins (Verified Allergy, Unknown, 11/13/18) Shellfish (Verified Allergy, Unknown, 11/13/18) Sulfa (Sulfonamide Antibiotics) (Verified Allergy, Unknown, 11/13/18) azithromycin (Unverified Allergy, Unknown, ITCHING, 11/13/18) cephalexin (Verified Allergy, Unknown, 11/13/18) erythromycin base (Verified Allergy, Unknown, 11/13/18) furosemide (Verified Allergy, Unknown, 11/13/18) nitrofurantoin (Unverified Allergy, Unknown, ITCHING/"THICK TONGUE", 11/13/18) tetracycline (Verified Allergy, Unknown, 11/13/18) Uncoded Allergies: TAPE (Allergy, Unknown, 07/26/07) Patient Home Medication List Home Medication List Reviewed: Yes ALPRAZolam (Xanax Tablet) 0.25 Mg Tablet, 0.5-1 TAB PO Q8H PRN for ANXIETY, (Reported) Entered as Reported by: MAKENNA AGUILAR on 02/14/16919 Amiodarone HCl (Amiodarone HCl) 200 Mg Tablet, 100 MG PO DAILY, (Reported) Entered as Reported by: MAKENNA AGUILAR on 11/25/17925 Amlodipine Besylate (Amlodipine Besylate) 5 Mg Tablet, 5 MG PO DAILY, (Reported) Entered as Reported by: MAKENNA AGUILAR on 08/27/16 0833 Bimatoprost (Lumigan) 2.5 Ml Drops, 1 DROP OU HS, (Reported) Entered as Reported by: MAKENNA AGUILAR on 09/12/18 103 Cyanocobalamin (Cyanocobalamin Injection) 1,000 Mcg/Ml Inj, 1,000 MCG INJ MONTHLY, (Reported) Entered as Reported by: MAKENNA AGUILAR on 02/14/16919 Fexofenadine HCl (Renetta Allergy) 180 Mg Tablet, 180 MG PO DAILY PRN for ALLERGIES, (Reported) Entered as Reported by: MAKENNA AGUILAR on 11/25/17925 Guaifenesin/Dextromethorphan (Coricidin Hbp Softgel) 1 Each Capsule, 1 CAP PO DAILY PRN for ALLERGIES, (Reported) Entered as Reported by: MAKENNA AGUILAR on 09/12/18 103 Irbesartan (Irbesartan) 300 Mg Tablet, 300 MG PO DAILY, (Reported) Entered as Reported by: MAKENNA AGUILAR on 02/14/16919 Lactulose (Lactulose) 20 Gram/30 Ml Solution, 20 GM PO DAILY Prescribed by: KELLI ONTIVEROS on 11/20/21 1727 Levothyroxine Sodium (Levothyroxine Sodium) 50 Mcg Tablet, 50 MCG PO DAILY, (Reported) Entered as Reported by: MAKENNA AGUILAR on 02/14/16919 Omeprazole (Omeprazole) 40 Mg Capsule.dr, 40 MG PO HS, (Reported) Entered as Reported by: MAKENNA AGUILAR on 11/25/17925 Potassium Chloride (Potassium Chloride) 10 Meq Tab.er.prt, 10 MEQ PO DAILY, (Reported) Entered as Reported by: MAKENNA AGUILAR on 11/25/17925 Sucralfate (Carafate) 1 Gm/10 Ml Oral.susp, 1 GM PO QID Prescribed by: DEVI KO on 05/05/21 0451 Temazepam (Temazepam) 15 Mg Capsule, 15 MG PO HS PRN for INSOMNIA, (Reported) Entered as Reported by: MAKENNA AGUILAR on 11/25/17925 Trimethoprim (Trimethoprim) 100 Mg Tablet, 100 MG PO HS, (Reported) Entered as Reported by: MAKENNA AGUILAR on 11/25/17925 Review of Systems Review of Systems Constitutional: no symptoms reported EENTM: No Symptoms Reported Respiratory: No Symptoms Reported Cardiovascular: No Symptoms Reported Gastrointestinal: See HPI Genitourinary: No Symptoms Reported Musculoskeletal: see HPI Skin: no symptoms reported Psychiatric/Neurological: No Symptoms Reported Endocrine: No Symptoms Reported Hematologic/Lymphatic: No Symptoms Reported Past Jiathpf-Xijndo-Lfpijx Hx Patient Social History Tobacco Use?: No Substance use?: No Alcohol Use?: No Immunizations Up To Date Tetanus Booster (TDap): Less than 5yrs PED Vaccines UTD: No First/Initial COVID19 Vaccinat: 06/12/20 Second COVID19 Vaccination Kun: 07/10/20 Third COVID19 Vaccination Date: NO Seasonal Allergies Seasonal Allergies: Yes Past Medical History Surgery/Hospitalization HX: 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, 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, ATRIAL FLIP, CHRONIC CONSTIPATION Surgeries: Yes (LAP NIESSEN, ATRIAL CLIPPING) Abdominal, Appendectomy, Cardiac, Gallbladder, Hysterectomy, Pacemaker, Rectal, Thyroidectomy, Tonsillectomy Respiratory: Yes Asthma, Sleep Apnea Currently Using CPAP: Yes Currently Using BIPAP: No Cardiac: Yes (SINUS NODE DYSFUNCTION, ATRIAL CLIPPING) Atrial Fibrillation, Cardiomyopathy, Chronic Edema/Swelling, Coronary Artery Disease, Hypertension Neurological: No 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 Disorders: 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 Genitourinary: Yes Bladder Infection Gastrointestinal: Yes (dysphagia) Gastrointestinal Bleed, Hemorrhoids, Irritable Bowel Musculoskeletal: Yes (OSTEOARTHRITIS, FX RIGHT LOWER LEG, DISLOCATED RIGHT SHOULDER) Osteoporosis, Arthritis, Fractures Endocrine: Yes (THYROIDECTOMY; DIET CONTROLLED DIABETES) Hypothyroidsim, Diabetes, Non-Insulin dep HEENT: Yes Glaucoma Hearing Impairment: Hard of Hearing Cancer: No Psychosocial: Yes Anxiety, Depression Integumentary: No Blood Disorders: Yes (ANEMIA) Adverse Reaction/Blood Tranf: No Family Medical History Family history: Hypertension 03 FATHER, Onset:40's - 50 09 BROTHER, Onset:40's - 50 History of drug abuse 03 FATHER, Onset:20's - 25 Stroke 03 FATHER, Onset:60 years & older No Pertinent Family Hx Physical Exam Vital Signs Vital Signs - First Documented 11/20/21 11/20/21 13:50 17:36 Temp 37.0 Pulse 73 Resp 20 B/P (MAP) 161/77 (105) Pulse Ox 98 O2 Delivery Room Air Capillary Refill : Height/Weight/BMI Height: 5'6.00" Weight: 171lbs. 0.0oz. 77.799477dk; 28.00 BMI Method:Stated General Appearance: WD/WN, no apparent distress HEENT: PERRL/EOMI, normal ENT inspection Neck: full range of motion, normal inspection Respiratory: lungs clear, normal breath sounds, no respiratory distress, no accessory muscle use Cardiovascular: regular rate, rhythm, no gallop Gastrointestinal: normal bowel sounds; No non tender (upper abdominal tenderne ss ); soft, distended Extremities: normal range of motion, normal inspection Back: normal inspection Neurologic/Psychiatric: no motor/sensory deficits, alert, normal mood/affect, oriented x 3 Skin: normal color, warm/dry Progress/Results/Core Measures Results/Orders My Orders Orders - KELLI ONTIVEROS APRN Abdomen/Kub 1view (11/20/21 15:22) Lactulose Oral Solution (Enulose Oral So (11/20/21 15:45) Ondansetron Oral Dissolve Tab (Zofran (11/20/21 17:00) Medications Given in ED Current Medications Medications Dose Ordered Sig/Cora Route Start Time Stop Time Status Last Admin Dose Admin Lactulose 10 gm ONCE ONCE PO 11/20/21 15:45 11/20/21 15:46 DC 11/20/21 15:53 10 GM Ondansetron HCl 4 mg ONCE ONCE PO 11/20/21 17:00 11/20/21 17:01 DC 11/20/21 16:58 4 MG Vital Signs/I&O 11/20/21 11/20/21 13:50 17:36 Temp 37.0 37.0 Pulse 73 69 Resp 20 20 B/P (MAP) 161/77 (105) 150/69 Pulse Ox 98 98 O2 Delivery Room Air Blood Pressure Mean: 105 Progress Progress Note : Progress Note Orders placed for lactulose and enema in the emergency department. No obstruction noted on her KUB, moderate stool on x-ray. We will go ahead and prescribe her lactulose to take at home for constipation as she states she has had this in the past and has better results with that. Discharge plan of care reviewed and she is agreeable with plan. Diagnostic Imaging Diagonstic Imaging: Xray Comments [facility], [place] NAME: GARFIELD MCKEON [facility] REC#: [id number] PT STATUS: REG ER : 1935 PHYSICIAN: KELLI ONTIVEROS BROKE MAN ADMIT DATE: 11/20/21/ER Signed Date of Exam:11/20/21 ABDOMEN/KUB 1VIEW INDICATION: Abdominal pain and distention. EXAMINATION: KUB at 3:33 p.m. FINDINGS: Lung bases are clear. There is a moderate amount of stool present in the colon. Bowel gas pattern is normal. IMPRESSION: Moderate fecal stasis. Dictated by: Dictated on workstation # [id number] Dict: 11/20/21 1535 Trans: 11/20/21 1543 [id number] Interpreted by: SAMIRA SAINI MD Electronically signed by: SAMIRA SAINI MD 11/20/21 1543 Departure Impression Primary Impression: Constipation Disposition: 01 HOME, SELF-CARE Condition: Stable Departure-Patient Inst. Decision time for Depature: 17:00 Referrals: ESTHER DANIELLE DO (PCP/Family) Primary Care Physician Patient Instructions: Constipation, Adult ED Add. Discharge Instructions: Plan: 1. Take Lactulose once daily until you are having regular bowel movement, then stop taking and switch to Miralax daily to prevent constipation. 2. Drink plenty of fluids and walk to help keep your bowels moving. 3. Follow up with your doctor for persistent symptoms. 4. Return to ER for any new, concerning, or worsening symptoms. All discharge instructions reviewed with patient and/or family. Voiced understanding. Scripts Lactulose (Lactulose) 20 Gram/30 Ml Solution 20 GM PO DAILY for 7 Days, #210 ML 0 Refills Prov: KELLI ONTIVEROS BROKE MAN 11/20/21 KELLI ONTIVEROS BROKE MAN Nov 20, 2021 15:45
[2021-11-20] MEDS ORDERED: ONDANSETRON 4 MG (ZOFRAN) ORAL DISSOLVE TAB PO ONE (17:00)
[2021-11-20] MEDS ORDERED: LACT20SO2 PO (17:27)
[2021-11-20 17:36] VITALS: BP 150/69
== END 2021-11-20 17:36 | disposition home or self-care (01) ==
LOC: EDUNIT# 13:20 → ER 13:21
DX: K59.00 Constipation, unspecified (principal); G47.30 Sleep apnea, unspecified; Z99.89 Dependence on other enabling machines and devices; Z90.49 Acquired absence of other specified parts of digestive tract; Z90.710 Acquired absence of both cervix and uterus
CPT/HCPCS: 74018

== ENCOUNTER 2021-11-28 10:45 | Emergency (ER) | payer MEDICARE, MEDICAID ==
[~2021-11-28] VITALS: Ht 167 cm; Wt 79.0 kg
[~2021-11-28 10:45] MED LIST changes: +LACT20SO2 PO
--- NOTE | 2021-11-28 11:35 | Diagnostic Imaging Report ---
REASON FOR EXAM: Abdominal pain. Constipation. COMPARISON: 11/20/2021. TECHNIQUE: 3 views of the abdomen FINDINGS: The bowel gas pattern is nondistended. No large collection of free intraperitoneal air is seen. A large volume of gas and fecal material are present in the colon. No abnormal extraosseous calcifications are present. The osseous structures are age-appropriate. IMPRESSION: Large stool burden, consistent with constipation. Dictated by: Dictated on workstation # [id number]
--- NOTE | 2021-11-28 12:36 | ED General ---
General Chief Complaint: General Problems/Pain Stated Complaint: CONSTIPATION SEEN 11/20 Nursing Triage Note: PT ARRIVED WITH MULTIPLE COMPLAINTS. STATES SHE CONTINUES TO BE CONSTIPATED DESPITE TRYING MULTIPLE THINGS ALSO COMPLAINS OF RIGHT SIDED RIB PAIN X1 MONTH. Source of Information: Patient Exam Limitations: No Limitations History of Present Illness Date Seen by Provider: Nov 28, 2021 Time Seen by Provider: 11:12 Initial Comments This 86-year-old woman presents to the emergency room with complaints of being constipated for 10 to 12 days. She has tried MiraLAX, magnesium citrate, stool softener, and lactulose. She complains of pain around the right costal margin from "dislocated ribs" for which she has been seeking treatment from Dr. Soni. Patient complains of associated nausea. She also comments on thyroid disease and questionable parathyroid disease for which she needs to follow-up. Allergies and Home Medications Allergies Coded Allergies: levofloxacin (Unverified Allergy, Mild, RASH, 11/13/18) Penicillins (Verified Allergy, Unknown, 11/13/18) Shellfish (Verified Allergy, Unknown, 11/13/18) Sulfa (Sulfonamide Antibiotics) (Verified Allergy, Unknown, 11/13/18) azithromycin (Unverified Allergy, Unknown, ITCHING, 11/13/18) cephalexin (Verified Allergy, Unknown, 11/13/18) erythromycin base (Verified Allergy, Unknown, 11/13/18) furosemide (Verified Allergy, Unknown, 11/13/18) nitrofurantoin (Unverified Allergy, Unknown, ITCHING/"THICK TONGUE", 11/13/18) tetracycline (Verified Allergy, Unknown, 11/13/18) Uncoded Allergies: TAPE (Allergy, Unknown, 07/26/07) Patient Home Medication List Home Medication List Reviewed: Yes ALPRAZolam (Xanax Tablet) 0.25 Mg Tablet, 0.5-1 TAB PO Q8H PRN for ANXIETY, (Reported) Entered as Reported by: MAKENNA AGUILAR on 02/14/16 0920 Amiodarone HCl (Amiodarone HCl) 200 Mg Tablet, 100 MG PO DAILY, (Reported) Entered as Reported by: MAKENNA AGUILAR on 11/25/17 0926 Amlodipine Besylate (Amlodipine Besylate) 5 Mg Tablet, 5 MG PO DAILY, (Reported) Entered as Reported by: MAKENNA AGUILAR on 08/27/16 0833 Bimatoprost (Lumigan) 2.5 Ml Drops, 1 DROP OU HS, (Reported) Entered as Reported by: MAKENNA AGUILAR on 09/12/18 1033 Cyanocobalamin (Cyanocobalamin Injection) 1,000 Mcg/Ml Inj, 1,000 MCG INJ MONTHLY, (Reported) Entered as Reported by: MAKENNA AGUILAR on 02/14/16 09 Fexofenadine HCl (Renetta Allergy) 180 Mg Tablet, 180 MG PO DAILY PRN for ALLERGIES, (Reported) Entered as Reported by: MAKENNA AGUILAR on 11/25/17 09 Guaifenesin/Dextromethorphan (Coricidin Hbp Softgel) 1 Each Capsule, 1 CAP PO DAILY PRN for ALLERGIES, (Reported) Entered as Reported by: MAKENNA AGUILAR on 09/12/18 103 Irbesartan (Irbesartan) 300 Mg Tablet, 300 MG PO DAILY, (Reported) Entered as Reported by: MAKENNA AGUILAR on 02/14/16 09 Lactulose (Lactulose) 20 Gram/30 Ml Solution, 20 GM PO DAILY Prescribed by: KELLI ONTIVEROS on 11/20/21 1727 Levothyroxine Sodium (Levothyroxine Sodium) 50 Mcg Tablet, 50 MCG PO DAILY, (Reported) Entered as Reported by: MAKENNA AGUILAR on 02/14/16 09 Omeprazole (Omeprazole) 40 Mg Capsule.dr, 40 MG PO HS, (Reported) Entered as Reported by: MAKENNA AGUILAR on 11/25/17 09 Peg/Electrolytes (Golytely Solution) 236-22.74G Soln, 4,000 ML PO UD Prescribed by: DEVI KO on 11/28/21 1415 Potassium Chloride (Potassium Chloride) 10 Meq Tab.er.prt, 10 MEQ PO DAILY, (Reported) Entered as Reported by: MAKENNA AGUILAR on 11/25/17 09 Sucralfate (Carafate) 1 Gm/10 Ml Oral.susp, 1 GM PO QID Prescribed by: DEVI KO on 05/05/21 0451 Temazepam (Temazepam) 15 Mg Capsule, 15 MG PO HS PRN for INSOMNIA, (Reported) Entered as Reported by: MAKENNA AGUILAR on 11/25/17925 Trimethoprim (Trimethoprim) 100 Mg Tablet, 100 MG PO HS, (Reported) Entered as Reported by: MAKENNA AGUILAR on 11/25/17925 Review of Systems Review of Systems Constitutional: no symptoms reported EENTM: no symptoms reported Respiratory: no symptoms reported Cardiovascular: no symptoms reported Gastrointestinal: see HPI Genitourinary: no symptoms reported : No Musculoskeletal: no symptoms reported Skin: no symptoms reported Psychiatric/Neurological: No Symptoms Reported Hematologic/Lymphatic: No Symptoms Reported Immunological/Allergic: no symptoms reported Past Ysxbwhe-Nlfqra-Txcxwx Hx Patient Social History Tobacco Use?: No Substance use?: No Alcohol Use?: No Immunizations Up To Date Tetanus Booster (TDap): Less than 5yrs PED Vaccines UTD: No First/Initial COVID19 Vaccinat: 06/12/20 Second COVID19 Vaccination Kun: [place] DATE Third COVID19 Vaccination Date: NO 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: [employer] Seasonal Allergies Seasonal Allergies: Yes Past Medical History Surgery/Hospitalization HX: 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, 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, ATRIAL FLIP, CHRONIC CONSTIPATION Surgeries: Yes (LAP NIESSEN, ATRIAL CLIPPING) Abdominal, Appendectomy, Cardiac, Gallbladder, Hysterectomy, Pacemaker, Rectal, Thyroidectomy, Tonsillectomy Respiratory: Yes Asthma, Sleep Apnea Currently Using CPAP: Yes Currently Using BIPAP: No Cardiac: Yes (SINUS NODE DYSFUNCTION, ATRIAL CLIPPING) Atrial Fibrillation, Cardiomyopathy, Chronic Edema/Swelling, Coronary Artery Disease, Hypertension Neurological: No 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 Genitourinary: Yes Bladder Infection Gastrointestinal: Yes (dysphagia) Gastrointestinal Bleed, Hemorrhoids, Irritable Bowel Musculoskeletal: Yes (OSTEOARTHRITIS, FX RIGHT LOWER LEG, DISLOCATED RIGHT SHOULDER) Osteoporosis, Arthritis, Fractures Endocrine: Yes (THYROIDECTOMY; DIET CONTROLLED DIABETES) Hypothyroidsim, Diabetes, Non-Insulin dep HEENT: Yes Glaucoma Hearing Impairment: Hard of Hearing Cancer: No Psychosocial: Yes Anxiety, Depression Integumentary: No Blood Disorders: Yes (ANEMIA) Adverse Reaction/Blood Tranf: No Family Medical History Family history: Hypertension 03 FATHER, Onset:40's - 50 09 BROTHER, Onset:40's - 50 History of drug abuse 03 FATHER, Onset:20's - 25 Stroke 03 FATHER, Onset:60 years & older No Pertinent Family Hx Physical Exam Vital Signs Vital Signs - First Documented 11/28/21 11:17 Temp 36.3 Pulse 86 Resp 16 B/P (MAP) 134/74 (94) Pulse Ox 96 O2 Delivery Room Air Capillary Refill : Less Than 3 Seconds Height, Weight, BMI Height: 5'6.00" Weight: 171lbs. 0.0oz. 77.957166vw; 28.00 BMI Method:Stated General Appearance: No Apparent Distress, WD/WN HEENT: PERRL/EOMI, Normal ENT Inspection Neck: Normal Inspection Respiratory: Lungs Clear, Normal Breath Sounds, No Accessory Muscle Use, Other (Tenderness over the right anterior lower costal margin) Cardiovascular: Regular Rate, Rhythm, No Edema, No Murmur Gastrointestinal: Normal Bowel Sounds, Soft, Distended (Mildly), Tenderness (Mild, generalized) Extremity: Normal Inspection, No Pedal Edema Neurologic/Psychiatric: Alert, Oriented x3, No Motor/Sensory Deficits, Normal Mood/Affect Skin: Normal Color, Warm/Dry; No Rash (No rash on the tender areas to suggest shingles) Progress/Results/Core Measures Suspected Sepsis SIRS Temperature: Pulse: 86 Respiratory Rate: 16 Laboratory Tests 11/28/21 12:55: White Blood Count 7.5 Blood Pressure 134 /74 Mean: 94 Laboratory Tests 11/28/21 12:55: Creatinine 1.06, Platelet Count 286, Total Bilirubin 0.7 Results/Orders Lab Results Laboratory Tests Test 11/28/21 12:55 Range/Units White Blood Count 7.5 4.3-11.0 10^3/uL Red Blood Count 5.49 H 3.80-5.11 10^6/uL Hemoglobin 12.5 11.5-16.0 g/dL Hematocrit 41 35-52 % Mean Corpuscular Volume 75 L 80-99 fL Mean Corpuscular Hemoglobin 23 L 25-34 pg Mean Corpuscular Hemoglobin Concent 30 L 32-36 g/dL Red Cell Distribution Width 18.8 H 10.0-14.5 % Platelet Count 286 130-400 10^3/uL Mean Platelet Volume 9.5 9.0-12.2 fL Immature Granulocyte % (Auto) 1 % Neutrophils (%) (Auto) 65 42-75 % Lymphocytes (%) (Auto) 22 12-44 % Monocytes (%) (Auto) 9 0-12 % Eosinophils (%) (Auto) 3 0-10 % Basophils (%) (Auto) 1 0-10 % Neutrophils # (Auto) 4.9 1.8-7.8 10^3/uL Lymphocytes # (Auto) 1.6 1.0-4.0 10^3/uL Monocytes # (Auto) 0.7 0.0-1.0 10^3/uL Eosinophils # (Auto) 0.2 0.0-0.3 10^3/uL Basophils # (Auto) 0.1 0.0-0.1 10^3/uL Immature Granulocyte # (Auto) 0.0 0.0-0.1 10^3/uL Sodium Level 142 135-145 MMOL/L Potassium Level 4.0 3.6-5.0 MMOL/L Chloride Level 108 H 98-107 MMOL/L Carbon Dioxide Level 21 21-32 MMOL/L Anion Gap 13 5-14 MMOL/L Blood Urea Nitrogen 20 H 7-18 MG/DL Creatinine 1.06 0.60-1.30 MG/DL Estimat Glomerular Filtration Rate 52 BUN/Creatinine Ratio 19 Glucose Level 99 70-105 MG/DL Calcium Level 9.8 8.5-10.1 MG/DL Corrected Calcium 9.7 8.5-10.1 MG/DL Magnesium Level 2.6 H 1.6-2.4 MG/DL Total Bilirubin 0.7 0.1-1.0 MG/DL Aspartate Amino Transf (AST/SGOT) 16 5-34 U/L Alanine Aminotransferase (ALT/SGPT) 12 0-55 U/L Alkaline Phosphatase 106 40-136 U/L Total Protein 7.6 6.4-8.2 GM/DL Albumin 4.1 3.2-4.5 GM/DL Vitamin D 25-Hydroxy 15.5 L 30.0-100.0 ng/mL Thyroid Stimulating Hormone (TSH) 1.06 0.35-4.94 UIU/ML Free Thyroxine 1.37 0.70-1.48 NG/DL Parathyroid Hormone (Intact) 155.4 H 9.0-77.0 pg/mL Calcium (PTH Intact) 9.7 8.5-10.5 mg/dL My Orders Orders - DEVI BERGERON MD Abdomen, Flat & Upright/Decub (11/28/21 11:12) Ed Iv/Invasive Line Start (11/28/21 12:50) Lactated Ringers (Lr 1000 Ml Iv Solution (11/28/21 13:00) Cbc With Automated Diff (11/28/21 12:50) Comprehensive Metabolic Panel (11/28/21 12:50) Magnesium (11/28/21 12:50) Thyroid Stimulating Hormone (11/28/21 12:50) Free T4 (Free Thyroxine) (11/28/21 12:50) Vitamin D 25-Hydroxy (11/28/21 12:50) Para Thryoid Hormone Intact (11/28/21 12:50) Lidocaine 2% Viscous 15 Ml (Xylocaine Vi (11/28/21 13:45) Medications Given in ED Vital Signs/I&O 11/28/21 11/28/21 11:17 15:19 Temp 36.3 36.3 Pulse 86 86 Resp 16 16 B/P (MAP) 134/74 (94) 134/74 Pulse Ox 96 96 O2 Delivery Room Air Room Air Capillary Refill : Less Than 3 Seconds Blood Pressure Mean: 94 Progress Note : Progress Note Patient was hydrated with IV fluids. KUB and upright x-ray was suggestive of constipation. Digital rectal exam was performed with lidocaine jelly for lubrication to evaluate degree of rectal impaction. There was some stool palpable but it was soft. Attempts to evacuate stool digitally caused significant pain. Since stool was soft and difficult to grasp, further efforts to evacuate stool from the rectum were abandoned. There did not seem to be a significant hard impaction. See discharge instructions for further discussion. Vitamin D, thyroid, and parathyroid labs were ordered. Patient was informed these would not be resulted by the time of her discharge and she would need to follow-up with Dr. Soni regarding the results. Diagnostic Imaging Diagonstic Imaging: Xray Plain Films/CT/US/NM/MRI: abdomen, pelvis Comments KUB and upright x-ray viewed by me and report reviewed. See report below: NAME: GARFIELD MCKEON MED REC#: [id number] PT STATUS: REG ER : 1935 PHYSICIAN: DEVI BERGERON MD ADMIT DATE: 11/28/21/ER Signed Date of Exam:11/28/21 ABDOMEN, FLAT UPRIGHT/DECUB REASON FOR EXAM: Abdominal pain. Constipation. COMPARISON: 11/20/2021. TECHNIQUE: 3 views of the abdomen FINDINGS: The bowel gas pattern is nondistended. No large collection of free intraperitoneal air is seen. A large volume of gas and fecal material are present in the colon. No abnormal extraosseous calcifications are present. The osseous structures are age-appropriate. IMPRESSION: Large stool burden, consistent with constipation. Dictated by: Dictated on workstation # [id number] Dict: 11/28/21 1133 Trans: 11/28/21 1135 [id number] Interpreted by: AYDE FLOOD DO Electronically signed by: AYDE FLOOD DO 11/28/21 1135 Departure Impression Primary Impression: Constipation Qualified Codes: K59.00 - Constipation, unspecified Additional Impressions: Hypothyroidism Qualified Codes: E03.9 - Hypothyroidism, unspecified Chest wall pain Disposition: HOME, SELF-CARE Condition: Stable Departure-Patient Inst. Referrals: ESTHER SONI DO (PCP/Family) Primary Care Physician Patient Instructions: Constipation in Adults Add. Discharge Instructions: Adhere to a clear liquid diet until you passed a significant amount of stool. Use GoLytely as directed to help flush out your constipation. You may take Tylenol (acetaminophen) up to 1000 mg every 6 hours as needed. You may additionally use the naproxen (Naprosyn) as prescribed previously. Use Zofran as previously directed for nausea or vomiting. An enema may also be helpful to help break up the stool at the rectum. Your parathyroid and vitamin D labs are pending. Please review those with Dr. Soni at your follow-up appointment. Call with questions or concerns. Return to the ER if you have worsening symptoms despite following these instructions. All discharge instructions reviewed with patient and/or family. Voiced understanding. Scripts Peg/Electrolytes (Golytely Solution) 236-22.74G Soln 4000 ML PO UD, #1 EA 8 oz every 15 minutes as tolerated until a significant amount of stool passes. Prov: DEVI BERGERON MD 11/28/21 Copy Copies To 1: ESTHER SONI JOSHUA T MD Nov 28, 2021 12:36
[2021-11-28] MEDS ORDERED: LACTATED RINGERS 1,000 ML IV ONE (13:00)
[2021-11-28 13:01] LABS: BASOPHILS # (AUTO) 0.1 10^3/uL (0.0-0.1); BASOPHILS % (AUTO) 1 % (0-10); EOSINOPHILS # (AUTO) 0.2 10^3/uL (0.0-0.3); EOSINOPHILS % (AUTO) 3 % (0-10); HEMATOCRIT 41 % (35-52); HEMOGLOBIN 12.5 g/dL (11.5-16.0); LYMPHOCYTES # (AUTO) 1.6 10^3/uL (1.0-4.0); LYMPHOCYTES % (AUTO) 22 % (12-44); MEAN CORPUSCULAR HEMOGLOBIN 23 pg (25-34); MEAN CORPUSCULAR HGB CONC 30 g/dL (32-36); MEAN CORPUSCULAR VOLUME 75 fL (80-99); MEAN PLATELET VOLUME 9.5 fL (9.0-12.2); MONOCYTES # (AUTO) 0.7 10^3/uL (0.0-1.0); MONOCYTES % (AUTO) 9 % (0-12); NEUTROPHILS # (AUTO) 4.9 10^3/uL (1.8-7.8); NEUTROPHILS % (AUTO) 65 % (42-75); PLATELET COUNT 286 10^3/uL (130-400); WHITE BLOOD COUNT 7.5 10^3/uL (4.3-11.0)
[2021-11-28 13:12] LABS: ALBUMIN 4.1 GM/DL (3.2-4.5)
[2021-11-28 13:13] LABS: CALCIUM 9.8 MG/DL (8.5-10.1)
[2021-11-28 13:14] LABS: TOTAL PROTEIN 7.6 GM/DL (6.4-8.2)
[2021-11-28 13:16] LABS: BILIRUBIN,TOTAL 0.7 MG/DL (0.1-1.0)
[2021-11-28 13:18] LABS: CREATININE SERUM 1.06 MG/DL (0.60-1.30)
[2021-11-28 13:21] LABS: MAGNESIUM 2.6 MG/DL (1.6-2.4)
[2021-11-28 13:42] LABS: FREE T4 (FREE THYROXINE) 1.37 NG/DL (0.70-1.48)
[2021-11-28] MEDS ORDERED: LIDOCAINE 2% VISCOUS 15 ML UDC PO ONE (13:45)
[2021-11-28] MEDS ORDERED: CLT4KB PO (14:15)
[2021-11-28 15:19] VITALS: BP 134/74
== END 2021-11-28 15:19 | disposition home or self-care (01) ==
LOC: EDUNIT# 10:45 → ER 10:46
DX: K59.00 Constipation, unspecified (principal); E03.9 Hypothyroidism, unspecified; R07.89 Other chest pain; G47.30 Sleep apnea, unspecified; Z95.0 Presence of cardiac pacemaker; Z99.89 Dependence on other enabling machines and devices
CPT/HCPCS: 36415; 74019; 80053; 82306; 83735; 83970; 84439; 84443; 85025

== ENCOUNTER 2022-01-13 19:13 | Emergency (ER) | payer MEDICARE, MEDICAID ==
[~2022-01-13] VITALS: Ht 167.7 cm; Wt 80.5 kg
[~2022-01-13 19:13] MED LIST changes: +CLT4KB PO; +POTA-177 PO; -POTA10TA37 PO
--- NOTE | 2022-01-13 19:40 | ED Cardiac General ---
History of Present Illness General Stated Complaint: ABNORMAL EKG Source: patient Exam Limitations: no limitations History of Present Illness Date Seen by Provider: Jan 13, 2022 Time Seen by Provider: 19:38 Allergies and Home Medications Allergies Coded Allergies: levofloxacin (Unverified Allergy, Mild, RASH, 11/13/18) Penicillins (Verified Allergy, Unknown, 11/13/18) Shellfish (Verified Allergy, Unknown, 11/13/18) Sulfa (Sulfonamide Antibiotics) (Verified Allergy, Unknown, 11/13/18) azithromycin (Unverified Allergy, Unknown, ITCHING, 11/13/18) cephalexin (Verified Allergy, Unknown, 11/13/18) erythromycin base (Verified Allergy, Unknown, 11/13/18) furosemide (Verified Allergy, Unknown, 11/13/18) nitrofurantoin (Unverified Allergy, Unknown, ITCHING/"THICK TONGUE", 11/13/18) tetracycline (Verified Allergy, Unknown, 11/13/18) Uncoded Allergies: TAPE (Allergy, Unknown, 07/26/07) Patient Home Medication List ALPRAZolam (Xanax Tablet) 0.25 Mg Tablet, 0.5-1 TAB PO Q8H PRN for ANXIETY, (Reported) Entered as Reported by: MAKENNA AGUILAR on 02/14/16 0920 Amiodarone HCl (Amiodarone HCl) 200 Mg Tablet, 100 MG PO DAILY, (Reported) Entered as Reported by: MAKENNA AGUILRA on 11/25/17 0926 Amlodipine Besylate (Amlodipine Besylate) 5 Mg Tablet, 5 MG PO DAILY, (Reported) Entered as Reported by: MAKENNA AGUILAR on 08/27/16 0833 Bimatoprost (Lumigan) 2.5 Ml Drops, 1 DROP OU HS, (Reported) Entered as Reported by: MAKENNA AGUILAR on 09/12/18 1033 Cyanocobalamin (Cyanocobalamin Injection) 1,000 Mcg/Ml Inj, 1,000 MCG INJ MONTHLY, (Reported) Entered as Reported by: MAKENNA AGUILAR on 02/14/16 0920 Fexofenadine HCl (Renetta Allergy) 180 Mg Tablet, 180 MG PO DAILY PRN for ALLERGIES, (Reported) Entered as Reported by: MAKENNA AGUILAR on 11/25/17 0926 Guaifenesin/Dextromethorphan (Coricidin Hbp Softgel) 1 Each Capsule, 1 CAP PO DAILY PRN for ALLERGIES, (Reported) Entered as Reported by: MAKENNA AGUILAR on 09/12/18 1033 Irbesartan (Irbesartan) 300 Mg Tablet, 300 MG PO DAILY, (Reported) Entered as Reported by: MAKENNA AGUILAR on 02/14/16 09 Lactulose (Lactulose) 20 Gram/30 Ml Solution, 20 GM PO DAILY Prescribed by: KELLI ONTIVEROS on 11/20/21 1727 Levothyroxine Sodium (Levothyroxine Sodium) 50 Mcg Tablet, 50 MCG PO DAILY, (Reported) Entered as Reported by: MAKENNA AGUILAR on 02/14/16 09 Omeprazole (Omeprazole) 40 Mg Capsule.dr, 40 MG PO HS, (Reported) Entered as Reported by: MAKENNA AGUILAR on 11/25/17 09 Peg/Electrolytes (Golytely Solution) 236-22.74G Soln, 4,000 ML PO UD Prescribed by: DEVI KO on 11/28/21 1415 Potassium Chloride (Potassium Chloride) 10 Meq Tab.er.prt, 10 MEQ PO DAILY, (Reported) Entered as Reported by: MAKENNA AGUILAR on 11/25/17925 Sucralfate (Carafate) 1 Gm/10 Ml Oral.susp, 1 GM PO QID Prescribed by: DEVI KO on 05/05/21 0451 Temazepam (Temazepam) 15 Mg Capsule, 15 MG PO HS PRN for INSOMNIA, (Reported) Entered as Reported by: MAKENNA AGUILAR on 11/25/17 09 Trimethoprim (Trimethoprim) 100 Mg Tablet, 100 MG PO HS, (Reported) Entered as Reported by: MAKENNA AGUILAR on 11/25/17 09 Past Jjkdhii-Cdjvzy-Ljwdyf Hx Immunizations Up To Date Tetanus Booster (TDap): Less than 5yrs PED Vaccines UTD: No First/Initial COVID19 Vaccinat: 06/12/20 Second COVID19 Vaccination Kun: 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, ATRIAL FLIP, CHRONIC CONSTIPATION Surgeries: Yes (LAP NIESSEN, ATRIAL CLIPPING) Abdominal, Appendectomy, Cardiac, Gallbladder, Hysterectomy, Pacemaker, Rectal, Thyroidectomy, Tonsillectomy Respiratory: Yes Asthma, Sleep Apnea Currently Using CPAP: Yes Currently Using BIPAP: No Cardiac: Yes (SINUS NODE DYSFUNCTION, ATRIAL CLIPPING) Atrial Fibrillation, Cardiomyopathy, Chronic Edema/Swelling, Coronary Artery Disease, Hypertension Neurological: No 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 Genitourinary: Yes Bladder Infection Gastrointestinal: Yes (dysphagia) Gastrointestinal Bleed, Hemorrhoids, Irritable Bowel Musculoskeletal: Yes (OSTEOARTHRITIS, FX RIGHT LOWER LEG, DISLOCATED RIGHT SH OULDER) Osteoporosis, Arthritis, Fractures Endocrine: Yes (THYROIDECTOMY; DIET CONTROLLED DIABETES) Hypothyroidsim, Diabetes, Non-Insulin dep HEENT: Yes Glaucoma Hearing Impairment: Hard of Hearing Cancer: No Psychosocial: Yes Anxiety, Depression Integumentary: No Blood Disorders: Yes (ANEMIA) Adverse Reaction/Blood Tranf: No Family Medical History Family history: Hypertension 03 FATHER, Onset:40's - 50 09 BROTHER, Onset:40's - 50 History of drug abuse 03 FATHER, Onset:20's - 25 Stroke 03 FATHER, Onset:60 years & older No Pertinent Family Hx Physical Exam Vital Signs Vital Signs - First Documented 01/13/22 19:28 Temp 36.7 Pulse 76 Resp 20 B/P (MAP) 170/89 (116) Capillary Refill : Height, Weight, BMI Height: 5'6.00" Weight: 171lbs. 0.0oz. 77.792017ml; 28.00 BMI Method:Stated Progress/Results/Core Measures Results/Orders Lab Results Laboratory Tests Test 01/13/22 19:47 01/13/22 20:07 Range/Units Influenza Type A (RT-PCR) Not Detected Not Detecte Influenza Type B (RT-PCR) Not Detected Not Detecte SARS-CoV-2 RNA (RT-PCR) Not Detected Not Detecte White Blood Count 6.2 4.3-11.0 10^3/uL Red Blood Count 5.36 H 3.80-5.11 10^6/uL Hemoglobin 12.1 11.5-16.0 g/dL Hematocrit 40 35-52 % Mean Corpuscular Volume 74 L 80-99 fL Mean Corpuscular Hemoglobin 23 L 25-34 pg Mean Corpuscular Hemoglobin Concent 30 L 32-36 g/dL Red Cell Distribution Width 18.6 H 10.0-14.5 % Platelet Count 284 130-400 10^3/uL Mean Platelet Volume 9.4 9.0-12.2 fL Immature Granulocyte % (Auto) 0 % Neutrophils (%) (Auto) 59 42-75 % Lymphocytes (%) (Auto) 26 12-44 % Monocytes (%) (Auto) 9 0-12 % Eosinophils (%) (Auto) 4 0-10 % Basophils (%) (Auto) 1 0-10 % Neutrophils # (Auto) 3.7 1.8-7.8 10^3/uL Lymphocytes # (Auto) 1.6 1.0-4.0 10^3/uL Monocytes # (Auto) 0.6 0.0-1.0 10^3/uL Eosinophils # (Auto) 0.3 0.0-0.3 10^3/uL Basophils # (Auto) 0.1 0.0-0.1 10^3/uL Immature Granulocyte # (Auto) 0.0 0.0-0.1 10^3/uL Prothrombin Time 13.8 12.2-14.7 SEC INR Comment 1.0 0.8-1.4 Activated Partial Thromboplast Time 33 24-35 SEC D-Dimer 0.63 H 0.00-0.49 UG/ML Sodium Level 142 135-145 MMOL/L Potassium Level 4.3 3.6-5.0 MMOL/L Chloride Level 109 H 98-107 MMOL/L Carbon Dioxide Level 18 L 21-32 MMOL/L Anion Gap 15 H 5-14 MMOL/L Blood Urea Nitrogen 25 H 7-18 MG/DL Creatinine 1.37 H 0.60-1.30 MG/DL Estimat Glomerular Filtration Rate 38 BUN/Creatinine Ratio 18 Glucose Level 139 H 70-105 MG/DL Calcium Level 10.3 H 8.5-10.1 MG/DL Corrected Calcium 10.2 H 8.5-10.1 MG/DL Magnesium Level 2.5 H 1.6-2.4 MG/DL Total Bilirubin 0.6 0.1-1.0 MG/DL Aspartate Amino Transf (AST/SGOT) 17 5-34 U/L Alanine Aminotransferase (ALT/SGPT) 11 0-55 U/L Alkaline Phosphatase 104 40-136 U/L Total Creatine Kinase 22 L 29-168 U/L Creatine Kinase MB 0.7 <6.6 NG/ML Myoglobin 27.3 10.0-92.0 NG/ML Troponin I < 0.028 <0.028 NG/ML B-Type Natriuretic Peptide 104.1 H <100.0 PG/ML Total Protein 8.2 6.4-8.2 GM/DL Albumin 4.1 3.2-4.5 GM/DL My Orders Orders - KELLI ONTIVEROS [employer] Ekg Tracing (01/13/22 19:26) Cbc With Automated Diff (01/13/22 19:36) Magnesium (01/13/22 19:36) Chest 1 View, Ap/Pa Only (01/13/22 19:36) Comprehensive Metabolic Panel (01/13/22 19:36) Myoglobin Serum (01/13/22 19:36) Protime With Inr (01/13/22 19:36) Partial Thromboplastin Time (01/13/22 19:36) O2 (01/13/22 19:36) Monitor-Rhythm Ecg Trace Only (01/13/22 19:36) Ed Iv/Invasive Line Start (01/13/22 19:36) Creatine Kinase (01/13/22 19:36) Creatine Kinase Mb (01/13/22 19:36) Bnp Rinku (01/13/22 19:36) Fibrin Degradation Products (01/13/22 19:36) Troponin I Rinku (01/13/22 19:36) Covid 19 Inhouse Test (01/13/22 19:37) Influenza A And B By Pcr (01/13/22 19:37) Vital Signs/I&O 01/13/22 19:28 Temp 36.7 Pulse 76 Resp 20 B/P (MAP) 170/89 (116) Departure Impression Primary Impression: Hypertension Disposition: 01 HOME, SELF-CARE Condition: Stable/Unchanged Departure-Patient Inst. Decision time for Depature: 21:04 Referrals: ESTHER DANIELLE DO (PCP/Family) Primary Care Physician Patient Instructions: High Blood Pressure in Adults Add. Discharge Instructions: Plan: 1. Follow up with your doctor, call tomorrow to schedule follow up. 2. Return for any new, concerning, or worsening symptoms. KELLI ONTIVEROS [employer] Jan 13, 2022 19:40
[2022-01-13 20:14] LABS: BASOPHILS # (AUTO) 0.1 10^3/uL (0.0-0.1); BASOPHILS % (AUTO) 1 % (0-10); EOSINOPHILS # (AUTO) 0.3 10^3/uL (0.0-0.3); EOSINOPHILS % (AUTO) 4 % (0-10); HEMATOCRIT 40 % (35-52); HEMOGLOBIN 12.1 g/dL (11.5-16.0); LYMPHOCYTES # (AUTO) 1.6 10^3/uL (1.0-4.0); LYMPHOCYTES % (AUTO) 26 % (12-44); MEAN CORPUSCULAR HEMOGLOBIN 23 pg (25-34); MEAN CORPUSCULAR HGB CONC 30 g/dL (32-36); MEAN CORPUSCULAR VOLUME 74 fL (80-99); MEAN PLATELET VOLUME 9.4 fL (9.0-12.2); MONOCYTES # (AUTO) 0.6 10^3/uL (0.0-1.0); MONOCYTES % (AUTO) 9 % (0-12); NEUTROPHILS # (AUTO) 3.7 10^3/uL (1.8-7.8); NEUTROPHILS % (AUTO) 59 % (42-75); PLATELET COUNT 284 10^3/uL (130-400); WHITE BLOOD COUNT 6.2 10^3/uL (4.3-11.0)
[2022-01-13 20:30] LABS: PROTHROMBIN TIME PATIENT 13.8 SEC (12.2-14.7)
[2022-01-13 20:37] LABS: ALBUMIN 4.1 GM/DL (3.2-4.5); BILIRUBIN,TOTAL 0.6 MG/DL (0.1-1.0); CALCIUM 10.3 MG/DL (8.5-10.1); CREATININE SERUM 1.37 MG/DL (0.60-1.30); MAGNESIUM 2.5 MG/DL (1.6-2.4); POTASSIUM 4.3 MMOL/L (3.6-5.0); TOTAL PROTEIN 8.2 GM/DL (6.4-8.2)
[2022-01-13 20:44] LABS: CREATINE KINASE MB 0.7 NG/ML (<6.6)
--- NOTE | 2022-01-13 20:56 | Diagnostic Imaging Report ---
CLINICAL INDICATION: Patient with abnormal EKG and chest pain. EXAM: Portable chest x-ray upright view. COMPARISON: Chest x-ray dated 05/05/2021. FINDINGS: There is stable cardiomegaly. There is mild pulmonary vascular prominence centrally. There is no pleural effusion or pneumothorax. There is mild bibasilar atelectasis. Cardiac pacemaker again seen overlying the left chest. Postop changes to the chest are again seen. Air distended loop of colon seen overlying the abdomen. There is elevation of the left hemidiaphragm. IMPRESSION: 1: There is cardiomegaly with mild pulmonary vascular prominence centrally again noted. 2: There is mild bibasilar atelectasis. Dictated by: Dictated on workstation # [id number]
[2022-01-13 21:22] VITALS: BP 158/99
== END 2022-01-13 21:31 | disposition home or self-care (01) ==
LOC: EDUNIT# 19:13 → ER 19:14
DX: I10 Essential (primary) hypertension (principal); G47.30 Sleep apnea, unspecified; Z95.0 Presence of cardiac pacemaker; Z99.89 Dependence on other enabling machines and devices; Z20.822 Contact with and (suspected) exposure to COVID-19
CPT/HCPCS: 36415; 71045; 80053; 82550; 82553; 83735; 83874; 83880; 84484; 85025; 85379; 85610; 85730; 87636; 93005; 93041

== ENCOUNTER 2022-03-09 09:21 | Emergency (ER) | payer MEDICARE, MEDICAID ==
[~2022-03-09] VITALS: Ht 167 cm; Wt 79.0 kg
[2022-03-09 09:44] LABS: BASOPHILS # (AUTO) 0.1 10^3/uL (0.0-0.1); BASOPHILS % (AUTO) 1 % (0-10); EOSINOPHILS # (AUTO) 0.3 10^3/uL (0.0-0.3); EOSINOPHILS % (AUTO) 5 % (0-10); HEMATOCRIT 40 % (35-52); HEMOGLOBIN 12.2 g/dL (11.5-16.0); LYMPHOCYTES # (AUTO) 1.9 10^3/uL (1.0-4.0); LYMPHOCYTES % (AUTO) 27 % (12-44); MEAN CORPUSCULAR HEMOGLOBIN 23 pg (25-34); MEAN CORPUSCULAR HGB CONC 30 g/dL (32-36); MEAN CORPUSCULAR VOLUME 75 fL (80-99); MEAN PLATELET VOLUME 9.6 fL (9.0-12.2); MONOCYTES # (AUTO) 0.7 10^3/uL (0.0-1.0); MONOCYTES % (AUTO) 11 % (0-12); NEUTROPHILS # (AUTO) 3.8 10^3/uL (1.8-7.8); NEUTROPHILS % (AUTO) 55 % (42-75); PLATELET COUNT 277 10^3/uL (130-400); WHITE BLOOD COUNT 6.9 10^3/uL (4.3-11.0)
[2022-03-09 10:08] LABS: BILIRUBIN,URINE NEGATIVE (NEGATIVE); CLARITY,URINE CLOUDY; COLOR,URINE ORANGE; GLUCOSE, URINE (UA) NEGATIVE (NEGATIVE); KETONES,URINE TRACE (NEGATIVE); LEUKOCYTE ESTERASE ,URINE 2+ (NEGATIVE); NITRITE,URINE NEGATIVE (NEGATIVE); PH,URINE 5.5 (5-9); PROTEIN,URINE TRACE (NEGATIVE)
[2022-03-09 10:10] LABS: ALBUMIN 3.9 GM/DL (3.2-4.5); POTASSIUM 3.6 MMOL/L (3.6-5.0)
[2022-03-09 10:11] LABS: CALCIUM 9.6 MG/DL (8.5-10.1)
[2022-03-09 10:12] LABS: PROTHROMBIN TIME PATIENT 13.9 SEC (12.2-14.7); TOTAL PROTEIN 7.4 GM/DL (6.4-8.2)
[2022-03-09 10:14] LABS: BILIRUBIN,TOTAL 0.6 MG/DL (0.1-1.0)
[2022-03-09 10:16] LABS: CREATININE SERUM 0.99 MG/DL (0.60-1.30)
[2022-03-09 10:19] LABS: MAGNESIUM 2.4 MG/DL (1.6-2.4)
[2022-03-09 10:32] LABS: AMORPHOUS SEDIMENT,UR MOD AMOR URATES /LPF; BACTERIA,URINE MODERATE /HPF; HYALINE CASTS, URINE 0-2 /LPF; WBC,URINE 25-50 /HPF
--- NOTE | 2022-03-09 10:37 | Diagnostic Imaging Report ---
INDICATION: Chest pain. COMPARISON: 01/13/2022. FINDINGS: Cardiomegaly is again noted. The atrial clip and dual-chamber pacemaker are unchanged. The lungs are well-aerated. No infiltrates have developed. No pulmonary edema. No pneumothorax or pleural effusion. No bony abnormalities have developed. IMPRESSION: Cardiomegaly with no acute changes demonstrated. Dictated by: Dictated on workstation # [id number]
[2022-03-09] MEDS ORDERED: cefTRIAXone 1 GM PRE-MIX 50 ML IV STA (11:28)
[2022-03-09] MEDS ORDERED: CEFD300C3 PO (11:54)
--- NOTE | 2022-03-09 11:55 | ED Chest Pain ---
General Chief Complaint: Chest Pain Stated Complaint: SOB/CHEST PAINS/HOARSE Nursing Triage Note: PT STATES SOB AND CHEST PAIN THIS MORNING, HX OF A FIB AND PACEMAKER, RT SHOULDER PAIN, NAUSEA. STATES PAIN IS OFF AND ON BUT NONE AT THIS TIME. WANTED TO SEE DR. DANIELLE BUT HE SENT HER HERE. Source: patient, old records Exam Limitations: no limitations History of Present Illness Date Seen by Provider: Mar 09, 2022 Time Seen by Provider: 09:24 Initial Comments This 87-year-old woman with atrial fibrillation presents to the emergency room this morning with shortness of air and chest pain. Symptoms started yesterday and returned again this morning. She does not feel any chest pain or shortness of breath at this time. She has not been feeling well for a few days and has been sleeping more than usual. She reports some hoarse voice and mild cough. She also has had some difficulty swallowing liquids. She is urinating often. She had some right arm discomfort associated with the chest pain. She also complains of some right jaw and cheek pain under her eye. Allergies and Home Medications Allergies Coded Allergies: levofloxacin (Unverified Allergy, Mild, RASH, 11/13/18) Penicillins (Verified Allergy, Unknown, 11/13/18) Shellfish (Verified Allergy, Unknown, 11/13/18) Sulfa (Sulfonamide Antibiotics) (Verified Allergy, Unknown, 11/13/18) azithromycin (Unverified Allergy, Unknown, ITCHING, 11/13/18) cephalexin (Verified Allergy, Unknown, 11/13/18) erythromycin base (Verified Allergy, Unknown, 11/13/18) furosemide (Verified Allergy, Unknown, 11/13/18) nitrofurantoin (Unverified Allergy, Unknown, ITCHING/"THICK TONGUE", 11/13/18) tetracycline (Verified Allergy, Unknown, 11/13/18) Uncoded Allergies: TAPE (Allergy, Unknown, 07/26/07) Patient Home Medication List Home Medication List Reviewed: Yes ALPRAZolam (Xanax Tablet) 0.25 Mg Tablet, 0.5-1 TAB PO Q8H PRN for ANXIETY, (Reported) Entered as Reported by: MAKENNA AGUILAR on 02/14/16 0920 Amiodarone HCl (Amiodarone HCl) 200 Mg Tablet, 100 MG PO DAILY, (Reported) Entered as Reported by: MAKENNA AGUILAR on 11/25/17 09 Amlodipine Besylate (Amlodipine Besylate) 5 Mg Tablet, 5 MG PO DAILY, (Reported) Entered as Reported by: MAKENNA AGUILAR on 08/27/16 0833 Bimatoprost (Lumigan) 2.5 Ml Drops, 1 DROP OU HS, (Reported) Entered as Reported by: MAKENNA AGUILAR on 09/12/18 1033 Cefdinir (Cefdinir) 300 Mg Capsule, 300 MG PO BID Prescribed by: DEVI KO on 03/09/22 1154 Cyanocobalamin (Cyanocobalamin Injection) 1,000 Mcg/Ml Inj, 1,000 MCG INJ MONTHLY, (Reported) Entered as Reported by: MAKENNA AGUILAR on 02/14/16 09 Fexofenadine HCl (Renetta Allergy) 180 Mg Tablet, 180 MG PO DAILY PRN for ALLERGIES, (Reported) Entered as Reported by: MAKENNA AGUILAR on 11/25/17 09 Guaifenesin/Dextromethorphan (Coricidin Hbp Softgel) 1 Each Capsule, 1 CAP PO DAILY PRN for ALLERGIES, (Reported) Entered as Reported by: MAKENNA AGUILAR on 09/12/18 103 Irbesartan (Irbesartan) 300 Mg Tablet, 300 MG PO DAILY, (Reported) Entered as Reported by: MAKENNA AGUILAR on 02/14/16 09 Lactulose (Lactulose) 20 Gram/30 Ml Solution, 20 GM PO DAILY Prescribed by: KELLI ONTIVEROS on 11/20/21 1727 Levothyroxine Sodium (Levothyroxine Sodium) 50 Mcg Tablet, 50 MCG PO DAILY, (Reported) Entered as Reported by: MAKENNA AGUILAR on 02/14/16 09 Omeprazole (Omeprazole) 40 Mg Capsule.dr, 40 MG PO HS, (Reported) Entered as Reported by: MAKENNA AGUILAR on 11/25/17 09 Peg/Electrolytes (Golytely Solution) 236-22.74G Soln, 4,000 ML PO UD Prescribed by: DEVI KO on 11/28/21 1415 Potassium Chloride (Potassium Chloride) 10 Meq Tab.er.prt, 10 MEQ PO DAILY, (Reported) Entered as Reported by: MAKENNA AGUILAR on 11/25/17925 Sucralfate (Carafate) 1 Gm/10 Ml Oral.susp, 1 GM PO QID Prescribed by: DEVI KO on 05/05/21 0451 Temazepam (Temazepam) 15 Mg Capsule, 15 MG PO HS PRN for INSOMNIA, (Reported) Entered as Reported by: MAKENNA AGUILAR on 11/25/17925 Trimethoprim (Trimethoprim) 100 Mg Tablet, 100 MG PO HS, (Reported) Entered as Reported by: MAKENNA AGUILAR on 11/25/17925 Review of Systems Review of Systems Constitutional: see HPI EENTM: See HPI Respiratory: See HPI Cardiovascular: See HPI Gastrointestinal: No Symptoms Reported Genitourinary: See HPI Musculoskeletal: see HPI Skin: no symptoms reported Psychiatric/Neurological: No Symptoms Reported Endocrine: No Symptoms Reported Hematologic/Lymphatic: No Symptoms Reported Past Xxzgnco-Fpejfr-Lpnvpe Hx Patient Social History Tobacco Use?: No Substance use?: No Alcohol Use?: No Immunizations Up To Date Tetanus Booster (TDap): Less than 5yrs PED Vaccines UTD: No First/Initial COVID19 Vaccinat: Second COVID19 Vaccination Kun: YES Third COVID19 Vaccination Date: Seasonal Allergies Seasonal Allergies: Yes Past Medical History Surgery/Hospitalization HX: PMH: AFIB, 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, CHRONIC CONSTIPATION Surgeries: Yes (LAP NIESSEN, ATRIAL CLIPPING) Abdominal, Appendectomy, Cardiac, Gallbladder, Hysterectomy, Pacemaker, Rectal, Thyroidectomy, Tonsillectomy Respiratory: Yes Asthma, Sleep Apnea Currently Using CPAP: Yes Currently Using BIPAP: No Cardiac: Yes (SINUS NODE DYSFUNCTION, ATRIAL CLIPPING) Atrial Fibrillation, Cardiomyopathy, Chronic Edema/Swelling, Coronary Artery Disease, Hypertension Neurological: No 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 Genitourinary: Yes Bladder Infection Gastrointestinal: Yes (dysphagia) Gastrointestinal Bleed, Hemorrhoids, Irritable Bowel Musculoskeletal: Yes (OSTEOARTHRITIS, FX RIGHT LOWER LEG, DISLOCATED RIGHT SHOULDER) Osteoporosis, Arthritis, Fractures Endocrine: Yes (THYROIDECTOMY; DIET CONTROLLED DIABETES) Hypothyroidsim, Diabetes, Non-Insulin dep HEENT: Yes Glaucoma Hearing Impairment: Hard of Hearing Cancer: No Psychosocial: Yes Anxiety, Depression Integumentary: No Blood Disorders: Yes (ANEMIA) Adverse Reaction/Blood Tranf: No Family Medical History Family history: Hypertension 03 FATHER, Onset:40's - 50 09 BROTHER, Onset:40's - 50 History of drug abuse 03 FATHER, Onset:20's - 25 Stroke 03 FATHER, Onset:60 years & older No Pertinent Family Hx Physical Exam Vital Signs Vital Signs - First Documented 03/09/22 09:29 Temp 36.7 Pulse 80 Resp 20 B/P (MAP) 138/106 (117) Pulse Ox 99 O2 Delivery Room Air Capillary Refill : Height, Weight, BMI Height: 5'6.00" Weight: 171lbs. 0.0oz. 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 Norm as Tested Skin: Normal Color, Warm/Dry Progress/Results/Core Measures Results/Orders Lab Results Laboratory Tests Test 03/09/22 09:36 03/09/22 10:05 03/09/22 10:07 03/09/22 11:45 Range/Units White Blood Count 6.9 4.3-11.0 10^3/uL Red Blood Count 5.39 H 3.80-5.11 10^6/uL Hemoglobin 12.2 11.5-16.0 g/dL Hematocrit 40 35-52 % Mean Corpuscular Volume 75 L 80-99 fL Mean Corpuscular Hemoglobin 23 L 25-34 pg Mean Corpuscular Hemoglobin Concent 30 L 32-36 g/dL Red Cell Distribution Width 17.9 H 10.0-14.5 % Platelet Count 277 130-400 10^3/uL Mean Platelet Volume 9.6 9.0-12.2 fL Immature Granulocyte % (Auto) 0 % Neutrophils (%) (Auto) 55 42-75 % Lymphocytes (%) (Auto) 27 12-44 % Monocytes (%) (Auto) 11 0-12 % Eosinophils (%) (Auto) 5 0-10 % Basophils (%) (Auto) 1 0-10 % Neutrophils # (Auto) 3.8 1.8-7.8 10^3/uL Lymphocytes # (Auto) 1.9 1.0-4.0 10^3/uL Monocytes # (Auto) 0.7 0.0-1.0 10^3/uL Eosinophils # (Auto) 0.3 0.0-0.3 10^3/uL Basophils # (Auto) 0.1 0.0-0.1 10^3/uL Immature Granulocyte # (Auto) 0.0 0.0-0.1 10^3/uL Prothrombin Time 13.9 12.2-14.7 SEC INR Comment 1.0 0.8-1.4 Activated Partial Thromboplast Time 32 24-35 SEC Sodium Level 142 135-145 MMOL/L Potassium Level 3.6 3.6-5.0 MMOL/L Chloride Level 110 H 98-107 MMOL/L Carbon Dioxide Level 22 21-32 MMOL/L Anion Gap 10 5-14 MMOL/L Blood Urea Nitrogen 16 7-18 MG/DL Creatinine 0.99 0.60-1.30 MG/DL Estimat Glomerular Filtration Rate 56 BUN/Creatinine Ratio 16 Glucose Level 107 H 70-105 MG/DL Calcium Level 9.6 8.5-10.1 MG/DL Corrected Calcium 9.7 8.5-10.1 MG/DL Magnesium Level 2.4 1.6-2.4 MG/DL Total Bilirubin 0.6 0.1-1.0 MG/DL Aspartate Amino Transf (AST/SGOT) 13 5-34 U/L Alanine Aminotransferase (ALT/SGPT) 11 0-55 U/L Alkaline Phosphatase 91 40-136 U/L Myoglobin 34.1 10.0-92.0 NG/ML Troponin I < 0.028 < 0.028 <0.028 NG/ML C-Reactive Protein High Sensitivity 0.20 0.00-0.50 MG/DL B-Type Natriuretic Peptide 166.5 H <100.0 PG/ML Total Protein 7.4 6.4-8.2 GM/DL Albumin 3.9 3.2-4.5 GM/DL Urine Color ORANGE Urine Clarity CLOUDY Urine pH 5.5 5-9 Urine Specific [place] >=1.030 1.016-1.022 Urine Protein TRACE H NEGATIVE Urine Glucose (UA) NEGATIVE NEGATIVE Urine Ketones TRACE H NEGATIVE Urine Nitrite NEGATIVE NEGATIVE Urine Bilirubin NEGATIVE NEGATIVE Urine Urobilinogen 1.0 < = 1.0 MG/DL Urine Leukocyte Esterase 2+ H NEGATIVE Urine RBC (Auto) NEGATIVE NEGATIVE Urine RBC NONE /HPF Urine WBC 25-50 H /HPF Urine Squamous Epithelial Cells 10-25 H /HPF Urine Renal Epithelial Cells 2-5 /HPF Urine Crystals PRESENT H /LPF Urine Amorphous Sediment MOD JESSI URATES H /LPF Urine Bacteria MODERATE H /HPF Urine Casts PRESENT /LPF Urine Hyaline Casts 0-2 H /LPF Urine Mucus NEGATIVE /LPF Urine Culture Indicated YES Influenza Type A (RT-PCR) Not Detected Not Detecte Influenza Type B (RT-PCR) Not Detected Not Detecte SARS-CoV-2 RNA (RT-PCR) Not Detected Not Detecte My Orders Orders - DEVI BERGERON MD Ekg Tracing (03/09/22 09:24) Cbc With Automated Diff (03/09/22 09:26) Magnesium (03/09/22:26) Chest 1 View, Ap/Pa Only (03/09/22:26) Comprehensive Metabolic Panel (03/09/22:26) Myoglobin Serum (03/09/22:26) Protime With Inr (03/09/22:26) Partial Thromboplastin Time (03/09/22:26) O2 (03/09/22:26) Monitor-Rhythm Ecg Trace Only (03/09/22:26) Ed Iv/Invasive Line Start (03/09/22 09:26) Bnp Rinku (03/09/22 09:26) Troponin I Rinku (03/09/22 09:26) Hs C Reactive Protein (03/09/22 09:26) Covid 19 Inhouse Test (03/09/22 09:26) Influenza A And B By Pcr (03/09/22 09:26) Ua Culture If Indicated (03/09/22 09:47) Urine Culture (03/09/22 10:05) Troponin I Rinku (03/09/22 11:40) Ceftriaxone 1 Gm Pre-Mix (Rocephin 1 Gm (03/09/22 11:28) Vital Signs/I&O 03/09/22 03/09/22 09:29 12:41 Temp 36.7 36.7 Pulse 80 61 Resp 20 18 B/P (MAP) 138/106 (117) 136/76 Pulse Ox 99 99 O2 Delivery Room Air Room Air Blood Pressure Mean: 117 Progress Progress Note : Progress Note Work-up was essentially unremarkable except for urinary tract infection which wa s treated by Rocephin. See discharge instructions for further discussion. If patient does have a sinusitis causing the right maxillary tenderness, Rocephin and Omnicef should treat that as well. Initial ECG Impression Date: Mar 09, 2022 Initial ECG Impression Time: 09:36 Initial ECG Rate: 64 Comment Atrial paced rhythm with no ST elevation or depression. No abnormal intervals or axis deviation. Diagnostic Imaging Diagonstic Imaging: Xray Plain Films/CT/US/NM/MRI: chest Comments NAME: GARFIELD MCKEON MED REC#: [id number] PT STATUS: DEP ER : [id number] PHYSICIAN: DEVI BERGERON MD ADMIT DATE: 03/09/22/ER Signed Date of Exam:03/09/22 CHEST 1 VIEW, AP/PA ONLY INDICATION: Chest pain. COMPARISON: 01/13/2022. FINDINGS: Cardiomegaly is again noted. The atrial clip and dual-chamber pacemaker are unchanged. The lungs are well-aerated. No infiltrates have developed. No pulmonary edema. No pneumothorax or pleural effusion. No bony abnormalities have developed. IMPRESSION: Cardiomegaly with no acute changes demonstrated. Dictated by: Dictated on workstation # [id number] Dict: 03/09/22 1035 Trans: 03/09/22 1638 [id number] Interpreted by: IVIS LEVIN MD Electronically signed by: IVIS LEVIN MD 03/09/22 1638 Reviewed: Reviewed by Me Departure Impression Primary Impression: Chest pain Qualified Codes: R07.9 - Chest pain, unspecified Additional Impression: UTI (urinary tract infection) Qualified Codes: N39.0 - Urinary tract infection, site not specified Disposition: 01 HOME, SELF-CARE Condition: Stable Departure-Patient Inst. Decision time for Depature: 11:52 Referrals: ESTHER DANIELLE DO (PCP/Family) Primary Care Physician Patient Instructions: Chest Pain, Urinary Tract Infections in Adults Add. Discharge Instructions: Complete your antibiotics as prescribed. Drink plenty of clear liquids to stay well-hydrated and flush out urinary tract infection. Continue all other medications as previously prescribed. Follow-up with your doctor later this week to review urine cultures. Please notify Dr. Tamayo's office of your chest pain and seek further instructions. Call your doctor with questions or concerns. Return to the ER if you have worsening symptoms. All discharge instructions reviewed with patient and/or family. Voiced understanding. Scripts Cefdinir (Cefdinir) 300 Mg Capsule 300 MG PO BID, #14 CAP Start 03/10/22 Prov: DEVI BERGERON MD 03/09/22 Copy Copies To 1: ESTHER DANIELLE DO Copies To 2: BEBETO TAMAYO MD, JOSHUA T MD Mar 09, 2022 11:55
[2022-03-09 12:41] VITALS: BP 136/76
== END 2022-03-09 12:41 | disposition home or self-care (01) ==
LOC: EDUNIT# 09:21 → ER 09:23
DX: R07.9 Chest pain, unspecified (principal); N39.0 Urinary tract infection, site not specified; R68.84 Jaw pain; Z87.440 Personal history of urinary (tract) infections; Z88.1 Allergy status to other antibiotic agents; Z88.0 Allergy status to penicillin; Z20.822 Contact with and (suspected) exposure to COVID-19
CPT/HCPCS: 36415; 71045; 80053; 81000; 83735; 83874; 83880; 84484; 85025; 85610; 85730; 86141; 87088; 87636; 93005; 93041

== ENCOUNTER 2022-05-14 02:25 | Emergency (ER) | payer MEDICARE, MEDICAID ==
[~2022-05-14] VITALS: Ht 167 cm; Wt 79.0 kg
[~2022-05-14 02:25] MED LIST changes: +CEFD300C3 PO
--- NOTE | 2022-05-14 02:44 | ED Cough/URI ---
General Chief Complaint: Cough/Cold/Flu Symptoms Stated Complaint: FLU A & COUGH Nursing Triage Note: brought in by [facility] for cough, flu a+. c/o left side pain. Source: patient, EMS History of Present Illness Date Seen by Provider: May 14, 2022 Time Seen by Provider: 02:27 Initial Comments PT ARRIVES VIA EMS FROM HOME PT STATES SHE BEGAN GETTING SICK ON WEDNESDAY WITH COUGH/CONGESTION WENT TO [facility] [place] AND TESTED + FOR INFLUENZA A AND WAS GIVEN RX FOR TAMIFLU RX FOR TESSALON WAS CALLED IN BY DR. DANIELLE PT'S WAS SEEN IN ER ON WEDNESDAY AND HE TESTED + FOR INFLUENZA A PT STATES SHE HAS NOT HAD FEVER NO SHORTNESS OF BREATH C/O LEFT SIDE OF CHEST HURTS WHEN SHE COUGHS NO FEVER AT ANY TIME NO NAUSEA/VOMITING/DIARRHEA DRINKING FLUIDS WELL, AND VOIDING NORMALLY. SHE TOOK 1 TESSALON AT 0130 SHE HAS NOT TAKEN ANY OVER THE COUNTER MEDICATIONS AT ANY TIME CALLED EMS BECAUSE SHE IS STILL COUGHING AND SHE HAS TAKEN 6 OF THE TAMIFLU PILLS AND SHE'S STILL COUGHING COUGH IS NON-PRODUCTIVE O2 SATS 95-98% ON ROOM AIR FOR EMS, AND ALSO HERE ON ARRIVAL. EMS REPORT THAT PT DID NOT COUGH AT ANY TIME DURING THEIR TRANSPORT PCP: DR. DANIELLE Allergies and Home Medications Allergies Coded Allergies: levofloxacin (Unverified Allergy, Mild, RASH, 11/13/18) Penicillins (Verified Allergy, Unknown, 11/13/18) Shellfish (Verified Allergy, Unknown, 11/13/18) Sulfa (Sulfonamide Antibiotics) (Verified Allergy, Unknown, 11/13/18) azithromycin (Unverified Allergy, Unknown, ITCHING, 11/13/18) cephalexin (Verified Allergy, Unknown, 11/13/18) erythromycin base (Verified Allergy, Unknown, 11/13/18) furosemide (Verified Allergy, Unknown, 11/13/18) nitrofurantoin (Unverified Allergy, Unknown, ITCHING/"THICK TONGUE", 11/13/18) tetracycline (Verified Allergy, Unknown, 11/13/18) Uncoded Allergies: TAPE (Allergy, Unknown, 07/26/07) Patient Home Medication List Home Medication List Reviewed: Yes ALPRAZolam (Xanax Tablet) 0.25 Mg Tablet, 0.5-1 TAB PO Q8H PRN for ANXIETY, (Reported) Entered as Reported by: MAKENNA AGUILAR on 02/14/16 09 Amiodarone HCl (Amiodarone HCl) 200 Mg Tablet, 100 MG PO DAILY, (Reported) Entered as Reported by: MAKENNA AGUILAR on 11/25/17 09 Amlodipine Besylate (Amlodipine Besylate) 5 Mg Tablet, 5 MG PO DAILY, (Reported) Entered as Reported by: MAKENNA AGUILAR on 08/27/16 0833 Bimatoprost (Lumigan) 2.5 Ml Drops, 1 DROP OU HS, (Reported) Entered as Reported by: MAKENNA AGUILAR on 09/12/18 103 Cefdinir (Cefdinir) 300 Mg Capsule, 300 MG PO BID Prescribed by: DEVI KO on 03/09/22 1154 Cyanocobalamin (Cyanocobalamin Injection) 1,000 Mcg/Ml Inj, 1,000 MCG INJ MONTHLY, (Reported) Entered as Reported by: MAKENNA AGUILAR on 02/14/16 09 Fexofenadine HCl (Renetta Allergy) 180 Mg Tablet, 180 MG PO DAILY PRN for ALLERGIES, (Reported) Entered as Reported by: MAKENNA AGUILAR on 11/25/17 09 Guaifenesin/Dextromethorphan (Coricidin Hbp Softgel) 1 Each Capsule, 1 CAP PO DAILY PRN for ALLERGIES, (Reported) Entered as Reported by: MAKENNA AGUILAR on 09/12/18 1033 Irbesartan (Irbesartan) 300 Mg Tablet, 300 MG PO DAILY, (Reported) Entered as Reported by: MAKENNA AGUILAR on 02/14/16 09 Lactulose (Lactulose) 20 Gram/30 Ml Solution, 20 GM PO DAILY Prescribed by: KELLI ONTIVEROS on 11/20/21 1727 Levothyroxine Sodium (Levothyroxine Sodium) 50 Mcg Tablet, 50 MCG PO DAILY, (Reported) Entered as Reported by: MAKENNA AGUILAR on 02/14/16 09 Omeprazole (Omeprazole) 40 Mg Capsule.dr, 40 MG PO HS, (Reported) Entered as Reported by: MAKENNA AGUILAR on 11/25/17 09 Peg/Electrolytes (Golytely Solution) 236-22.74G Soln, 4,000 ML PO UD Prescribed by: DEVI KO on 11/28/21 1415 Potassium Chloride (Potassium Chloride) 10 Meq Tab.er.prt, 10 MEQ PO DAILY, (Reported) Entered as Reported by: MAKENNA AGUILAR on 11/25/17925 Sucralfate (Carafate) 1 Gm/10 Ml Oral.susp, 1 GM PO QID Prescribed by: DEVI KO on 05/05/21 0451 Temazepam (Temazepam) 15 Mg Capsule, 15 MG PO HS PRN for INSOMNIA, (Reported) Entered as Reported by: MAKENNA AGUILAR on 11/25/17925 Trimethoprim (Trimethoprim) 100 Mg Tablet, 100 MG PO HS, (Reported) Entered as Reported by: MAKENNA AGUILAR on 11/25/17925 Review of Systems Review of Systems Constitutional: no symptoms reported EENTM: no symptoms reported Respiratory: see HPI, cough; No short of breath Cardiovascular: no symptoms reported Gastrointestinal: no symptoms reported Genitourinary: no symptoms reported Musculoskeletal: no symptoms reported Skin: no symptoms reported Psychiatric/Neurological: No Symptoms Reported Hematologic/Lymphatic: No Symptoms Reported Immunological/Allergic: no symptoms reported Past Fyoyrtf-Vfbtsy-Soeelf Hx Patient Social History Tobacco Use?: No Substance use?: No Alcohol Use?: No Pt feels they are or have been: No Immunizations Up To Date Tetanus Booster (TDap): Less than 5yrs PED Vaccines UTD: No First/Initial COVID19 Vaccinat: W DATE Second COVID19 Vaccination Kun: YES Third COVID19 Vaccination Date: Seasonal Allergies Seasonal Allergies: Yes Past Medical History Surgery/Hospitalization HX: PMH: AFIB, PACE 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, CHRONIC CONSTIPATION Surgeries: Yes (LAP NIESSEN, ATRIAL CLIPPING) Abdominal, Appendectomy, Cardiac, Gallbladder, Hysterectomy, Pacemaker, Rectal, Thyroidectomy, Tonsillectomy Respiratory: Yes Asthma, Sleep Apnea Currently Using CPAP: Yes Currently Using BIPAP: No Cardiac: Yes (SINUS NODE DYSFUNCTION, ATRIAL CLIPPING) Atrial Fibrillation, Cardiomyopathy, Chronic Edema/Swelling, Coronary Artery Disease, Hypertension Neurological: Yes TIA 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 Disorders: No 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 Genitourinary: Yes Bladder Infection Gastrointestinal: Yes (dysphagia) Gastroesophageal Reflux, Gastrointestinal Bleed, Hemorrhoids, Irritable Bowel Musculoskeletal: Yes (OSTEOARTHRITIS, FX RIGHT LOWER LEG, DISLOCATED RIGHT SHOULDER) Osteoporosis, Arthritis, Fractures Endocrine: Yes (THYROIDECTOMY; DIET CONTROLLED DIABETES) Hypothyroidsim, Diabetes, Non-Insulin dep HEENT: Yes Glaucoma Hearing Impairment: Hard of Hearing Cancer: No Psychosocial: Yes Anxiety, Depression Integumentary: No Blood Disorders: Yes (ANEMIA) Adverse Reaction/Blood Tranf: No Family Medical History Family history: Hypertension 03 FATHER, Onset:40's - 50 09 BROTHER, Onset:40's - 50 History of drug abuse 03 FATHER, Onset:20's - 25 Stroke 03 FATHER, Onset:60 years & older No Pertinent Family Hx Physical Exam Vital Signs - First Documented 05/14/22 02:25 Temp 36.3 Pulse 74 Resp 16 B/P (MAP) 180/83 (115) Pulse Ox 97 O2 Delivery Room Air Capillary Refill : Less Than 3 Seconds Height: 5'6.00" Weight: 171lbs. 0.0oz. 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 as tested, no motor/sensory deficits, alert, normal mood/affect, oriented x 3 Skin: normal color, warm/dry Progress/Results/Core Measures Suspected Sepsis SIRS Temperature: Pulse: 74 Respiratory Rate: 16 Laboratory Tests 05/14/22 02:40: White Blood Count 4.3 Blood Pressure 180 /83 Mean: 115 Laboratory Tests 05/14/22 02:40: Creatinine 0.94, Platelet Count 195, Total Bilirubin 0.4 Results/Orders Lab Results Laboratory Tests Test 05/14/22 02:40 Range/Units White Blood Count 4.3 4.3-11.0 10^3/uL Red Blood Count 5.10 3.80-5.11 10^6/uL Hemoglobin 11.8 11.5-16.0 g/dL Hematocrit 38 35-52 % Mean Corpuscular Volume 75 L 80-99 fL Mean Corpuscular Hemoglobin 23 L 25-34 pg Mean Corpuscular Hemoglobin Concent 31 L 32-36 g/dL Red Cell Distribution Width 18.4 H 10.0-14.5 % Platelet Count 195 130-400 10^3/uL Mean Platelet Volume 9.4 9.0-12.2 fL Immature Granulocyte % (Auto) 1 % Neutrophils (%) (Auto) 44 42-75 % Lymphocytes (%) (Auto) 38 12-44 % Monocytes (%) (Auto) 11 0-12 % Eosinophils (%) (Auto) 5 0-10 % Basophils (%) (Auto) 1 0-10 % Neutrophils # (Auto) 1.9 1.8-7.8 10^3/uL Lymphocytes # (Auto) 1.6 1.0-4.0 10^3/uL Monocytes # (Auto) 0.5 0.0-1.0 10^3/uL Eosinophils # (Auto) 0.2 0.0-0.3 10^3/uL Basophils # (Auto) 0.0 0.0-0.1 10^3/uL Immature Granulocyte # (Auto) 0.0 0.0-0.1 10^3/uL Sodium Level 140 135-145 MMOL/L Potassium Level 3.6 3.6-5.0 MMOL/L Chloride Level 109 H 98-107 MMOL/L Carbon Dioxide Level 21 21-32 MMOL/L Anion Gap 10 5-14 MMOL/L Blood Urea Nitrogen 15 7-18 MG/DL Creatinine 0.94 0.60-1.30 MG/DL Estimat Glomerular Filtration Rate 59 BUN/Creatinine Ratio 16 Glucose Level 114 H 70-105 MG/DL Calcium Level 9.1 8.5-10.1 MG/DL Corrected Calcium 9.4 8.5-10.1 MG/DL Total Bilirubin 0.4 0.1-1.0 MG/DL Aspartate Amino Transf (AST/SGOT) 20 5-34 U/L Alanine Aminotransferase (ALT/SGPT) 17 0-55 U/L Alkaline Phosphatase 96 40-136 U/L Total Protein 6.8 6.4-8.2 GM/DL Albumin 3.6 3.2-4.5 GM/DL My Orders Orders - MIRACLE HICKMAN DO Monitor-Rhythm Ecg Trace Only (05/14/22 02:29) Chest 1 View, Ap/Pa Only (05/14/22 02:29) Cbc With Automated Diff (05/14/22 02:29) Comprehensive Metabolic Panel (05/14/22 02:29) Vital Signs/I&O 05/14/22 05/14/22 02:25 03:26 Temp 36.3 36.3 Pulse 74 60 Resp 16 16 B/P (MAP) 180/83 (115) 139/76 Pulse Ox 97 97 O2 Delivery Room Air Room Air Capillary Refill : Less Than 3 Seconds Blood Pressure Mean: 115 Progress Note : Progress Note PLACED IN ISOLATION ROOM FULL PPE WORN NO COUGH AT ANY TIME NO DYSPNEA OR TACHYPNEA NO HYPOXIA--O2 SATS 97-98% ON ROOM AIR NO FEVER DURING ER STAY VITALS STABLE. NO TACHYCARDIA OR HYPOTENSION LAB AND CXR ESSENTIALLY NORMAL, DOES NOT MEET CRITERIA FOR ADMIT. REVIEWED OLD RECORDS, INCLUDING PREVIOUS H&P'S, CONSULTS, PROCEDURES AND DISCHARGE SUMMARIES. REVIEWED TEST RESULTS, REASSURANCE GIVEN TO PATIENT, DISCUSSED ANTICIPATED CO URSE, MEDICATIONS, NEED FOR FOLLOW UP AND RETURN PRECAUTIONS DISCUSSED WITH PT. 0345--RN ATTEMPTING TO CONTACT /OTHER FAMILY MEMBERS TO PICK PT UP. WAS EVENTUALLY CONTACTED, AND CAME AND PICKED PT UP. Diagnostic Imaging Comments CXR--PENDING RADIOLOGIST REVIEW -NO ACUTE PROCESS Reviewed: Reviewed by Me Departure Impression Primary Impression: Influenza A Disposition: 01 HOME, SELF-CARE Condition: Stable Departure-Patient Inst. Decision time for Depature: 02:58 Referrals: ESTHER DANIELLE DO (PCP/Family) Primary Care Physician Patient Instructions: Flu, Adult (DC) Add. Discharge Instructions: LOTS OF CLEAR LIQUIDS--WATER, BROTH, JELLO, GATORADE TYLENOL 1 GRAM AND MOTRIN 600 MG 4 TIMES A DAY FOR PAIN OR FEVER CONTINUE TESSALON 1-2 PILLS EVERY 8 HOURS FOR COUGH YOU MAY ALSO TAKE MUCINEX DM NEEDED FOR COUGH FINISH TAMIFLU, TAKE INSTRUCTED. FOLLOW UP WITH DR. DANIELLE IN 3-4 DAYS IF NO BETTER. RETURN TO ER IF SYMPTOMS WORSEN All discharge instructions reviewed with patient and/or family. Voiced understanding. MIRACLE HICKMAN DO May 14, 2022 02:44
[2022-05-14 02:46] LABS: BASOPHILS % (AUTO) 1 % (0-10); EOSINOPHILS # (AUTO) 0.2 10^3/uL (0.0-0.3); EOSINOPHILS % (AUTO) 5 % (0-10); HEMATOCRIT 38 % (35-52); HEMOGLOBIN 11.8 g/dL (11.5-16.0); LYMPHOCYTES # (AUTO) 1.6 10^3/uL (1.0-4.0); LYMPHOCYTES % (AUTO) 38 % (12-44); MEAN CORPUSCULAR HEMOGLOBIN 23 pg (25-34); MEAN CORPUSCULAR HGB CONC 31 g/dL (32-36); MEAN CORPUSCULAR VOLUME 75 fL (80-99); MEAN PLATELET VOLUME 9.4 fL (9.0-12.2); MONOCYTES # (AUTO) 0.5 10^3/uL (0.0-1.0); MONOCYTES % (AUTO) 11 % (0-12); NEUTROPHILS # (AUTO) 1.9 10^3/uL (1.8-7.8); NEUTROPHILS % (AUTO) 44 % (42-75); PLATELET COUNT 195 10^3/uL (130-400); WHITE BLOOD COUNT 4.3 10^3/uL (4.3-11.0)
[2022-05-14 03:26] VITALS: BP 139/76
[2022-05-14 03:35] LABS: ALBUMIN 3.6 GM/DL (3.2-4.5); BILIRUBIN,TOTAL 0.4 MG/DL (0.1-1.0); CALCIUM 9.1 MG/DL (8.5-10.1); CREATININE SERUM 0.94 MG/DL (0.60-1.30); POTASSIUM 3.6 MMOL/L (3.6-5.0); TOTAL PROTEIN 6.8 GM/DL (6.4-8.2)
--- NOTE | 2022-05-14 05:53 | Diagnostic Imaging Report ---
CLINICAL INDICATION: Patient is flu positive. Patient with cough and congestion. EXAM: Portable chest x-ray upright view. COMPARISON: Chest x-ray dated 03/09/2022. FINDINGS: Lungs/pleura: Lungs are clear. There is no pneumothorax. There is no pleural effusion. Mediastinum: Unremarkable. Pulmonary vasculature: Unremarkable. Heart: Cardiomegaly. Cardiac pacemaker is seen in stable good position. Postoperative change to the chest is again seen. Bones/extrathoracic soft tissue: There are degenerative spurs involving the thoracic spine. IMPRESSION: Stable chest x-ray exam with no interval radiographic evidence of acute cardiopulmonary process. Dictated by: Dictated on workstation # [id number]
== END 2022-05-14 03:55 | disposition home or self-care (01) ==
LOC: EDUNIT# 02:25 → ER 02:26
DX: J10.1 Influenza due to other identified influenza virus with other respiratory manifestations (principal); G47.30 Sleep apnea, unspecified; Z99.89 Dependence on other enabling machines and devices
CPT/HCPCS: 36415; 71045; 80053; 85025; 93041

== ENCOUNTER 2022-07-19 08:45 | Emergency (ER) | payer MEDICARE, MEDICAID ==
[~2022-07-19] VITALS: Ht 167 cm; Wt 79.0 kg
--- NOTE | 2022-07-19 09:12 | ED Cough/URI ---
General Chief Complaint: Cough/Cold/Flu Symptoms Stated Complaint: COUGH Nursing Triage Note: PT AMB TO RM 5 PT CO OF COLD COUGH SX. PT DENIES FEVER. HAS PROD COUGH STARTED APPROX 1 WEEK AGO. Source: patient Exam Limitations: no limitations History of Present Illness Date Seen by Provider: Jul 19, 2022 Time Seen by Provider: 09:12 Initial Comments Patient is an 87-year-old who presents to the emergency room with a chief complaint of intermittently productive cough, feeling generalized malaise, decreased appetite, subjective fever ("my ears feel hot"), a little short of breath. Left-sided rib pain. symptoms have been going on for about a week. She saw her primary care physician's office and was prescribed a cough medication, Tessalon Perles. Secondary to left-sided rib pain she states her physician thought she might have "a rib out" .the tessalon is not really helping. She states she came in today because she feels fairly weak. She s tates a little earache and sore throat. She is occasionally nauseated with her cough but cannot vomit secondary to hiatal hernia repair. No chest pain. No abdominal pain. 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 Normal bowel movements. No rashes. She is COVID vaccinated and flu vaccinated. Feels a little lightheaded when she stands up more so than usual. Timing/Duration: week Severity/Quality: moderate Modifying Factors: Worse With Coughing Associated Symptoms: cough, earache, lightheadedness, sore throat Allergies and Home Medications Allergies Coded Allergies: levofloxacin (Unverified Allergy, Mild, RASH, 07/19/22) Penicillins (Verified Allergy, Unknown, 07/19/22) Shellfish (Verified Allergy, Unknown, 07/19/22) Sulfa (Sulfonamide Antibiotics) (Verified Allergy, Unknown, 07/19/22) azithromycin (Unverified Allergy, Unknown, ITCHING, 07/19/22) cephalexin (Verified Allergy, Unknown, 07/19/22) erythromycin base (Verified Allergy, Unknown, 07/19/22) furosemide (Verified Allergy, Unknown, 07/19/22) nitrofurantoin (Unverified Allergy, Unknown, ITCHING/"THICK TONGUE", 07/19/22) tetracycline (Verified Allergy, Unknown, 07/19/22) Uncoded Allergies: TAPE (Allergy, Unknown, 07/26/07) Patient Home Medication List Home Medication List Reviewed: Yes ALPRAZolam (Xanax Tablet) 0.25 Mg Tablet, 0.5-1 TAB PO Q8H PRN for ANXIETY, (Reported) Entered as Reported by: MAKENNA AGUILAR on 02/14/16 0920 Amiodarone HCl (Amiodarone HCl) 200 Mg Tablet, 100 MG PO DAILY, (Reported) Entered as Reported by: MAKENNA AGUILAR on 11/25/17 09 Amlodipine Besylate (Amlodipine Besylate) 5 Mg Tablet, 5 MG PO DAILY, (Reported) Entered as Reported by: MAKENNA AGUILAR on 08/27/16 0833 Bimatoprost (Lumigan) 2.5 Ml Drops, 1 DROP OU HS, (Reported) Entered as Reported by: MAKENNA AGUILAR on 09/12/18 1033 Cefdinir (Cefdinir) 300 Mg Capsule, 300 MG PO BID Prescribed by: DEVI KO on 03/09/22 1154 Ciprofloxacin HCl (Ciprofloxacin HCl) 500 Mg Tablet, 500 MG PO BID Prescribed by: CAROLINE BARON on 07/19/22 1022 Cyanocobalamin (Cyanocobalamin Injection) 1,000 Mcg/Ml Inj, 1,000 MCG INJ MONTHLY, (Reported) Entered as Reported by: MAKENNA AGUILAR on 02/14/16 09 Fexofenadine HCl (Renetta Allergy) 180 Mg Tablet, 180 MG PO DAILY PRN for ALLERGIES, (Reported) Entered as Reported by: MAKENNA AGUILAR on 11/25/17 09 Guaifenesin/Dextromethorphan (Coricidin Hbp Softgel) 1 Each Capsule, 1 CAP PO DAILY PRN for ALLERGIES, (Reported) Entered as Reported by: MAKENNA AGUILAR on 09/12/18 1033 Irbesartan (Irbesartan) 300 Mg Tablet, 300 MG PO DAILY, (Reported) Entered as Reported by: MAKENNA AGUILAR on 02/14/16 09 Lactulose (Lactulose) 20 Gram/30 Ml Solution, 20 GM PO DAILY Prescribed by: KELLI ONTIVEROS on 11/20/21 1727 Levothyroxine Sodium (Levothyroxine Sodium) 50 Mcg Tablet, 50 MCG PO DAILY, (Reported) Entered as Reported by: MAKENNA AGUILAR on 02/14/16 0920 Omeprazole (Omeprazole) 40 Mg Capsule.dr, 40 MG PO HS, (Reported) Entered as Reported by: MAKENNA AGUILAR on 11/25/17925 Peg/Electrolytes (Golytely Solution) 236-22.74G Soln, 4,000 ML PO UD Prescribed by: DEVI KO on 11/28/21 1415 Potassium Chloride (Potassium Chloride) 10 Meq Tab.er.prt, 10 MEQ PO DAILY, (Reported) Entered as Reported by: MAKENNA AGUILAR on 11/25/17925 Sucralfate (Carafate) 1 Gm/10 Ml Oral.susp, 1 GM PO QID Prescribed by: DEVI KO on 05/05/21 0451 Temazepam (Temazepam) 15 Mg Capsule, 15 MG PO HS PRN for INSOMNIA, (Reported) Entered as Reported by: MAKENNA AGUILAR on 11/25/17925 Trimethoprim (Trimethoprim) 100 Mg Tablet, 100 MG PO HS, (Reported) Entered as Reported by: MAKENNA AGUILAR on 11/25/17925 Review of Systems Review of Systems Constitutional: see HPI, malaise EENTM: ear pain, throat pain Respiratory: cough, short of breath Cardiovascular: other (Left-sided rib pain) Gastrointestinal: nausea Genitourinary: frequency : No Musculoskeletal: other (Left-sided rib pain) Skin: no symptoms reported All Other Systems Reviewed Negative Unless Noted: Yes Past Uylcdzw-Rrjavg-Kdudlf Hx Patient Social History Tobacco Use?: No Substance use?: No Alcohol Use?: No Pt feels they are or have been: No Immunizations Up To Date Tetanus Booster (TDap): Less than 5yrs PED Vaccines UTD: No Influenza Vaccine Up-to-Date: Yes; Up-to-Date First/Initial COVID19 Vaccinat: W Second COVID19 Vaccination Kun: YES Third COVID19 Vaccination Date: W Seasonal Allergies Seasonal Allergies: Yes Past Medical History Surgery/Hospitalization HX: PMH: AFIB, PACE MAKER, CHRONIC CONSTIPATION Surgeries: Yes (LAP NIESSEN, ATRIAL CLIPPING) Abdominal, Appendectomy, Cardiac, Gallbladder, Hysterectomy, Pacemaker, Rectal, Thyroidectomy, Tonsillectomy Respiratory: Yes Asthma, Sleep Apnea Currently Using CPAP: Yes Currently Using BIPAP: No Cardiac: Yes (SINUS NODE DYSFUNCTION, ATRIAL CLIPPING) Atrial Fibrillation, Cardiomyopathy, Chronic Edema/Swelling, Coronary Artery Disease, Hypertension Neurological: Yes TIA 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 Genitourinary: Yes Bladder Infection Gastrointestinal: Yes (dysphagia) Gastroesophageal Reflux, Gastrointestinal Bleed, Hemorrhoids, Irritable Bowel Musculoskeletal: Yes (OSTEOARTHRITIS, FX RIGHT LOWER LEG, DISLOCATED RIGHT SHOULDER) Osteoporosis, Arthritis, Fractures Endocrine: Yes (THYROIDECTOMY; DIET CONTROLLED DIABETES) Hypothyroidsim, Diabetes, Non-Insulin dep HEENT: Yes Glaucoma Hearing Impairment: Hard of Hearing Cancer: No Psychosocial: Yes Anxiety, Depression Integumentary: No Blood Disorders: Yes (ANEMIA) Adverse Reaction/Blood Tranf: No Family Medical History Family history: Hypertension 03 FATHER, Onset:40's - 50 09 BROTHER, Onset:40's - 50 History of drug abuse 03 FATHER, Onset:20's - 25 Stroke 03 FATHER, Onset:60 years & older No Pertinent Family Hx Physical Exam Vital Signs - First Documented 07/19/22 07/19/22 08:54 11:09 Temp 36.7 Pulse 74 Resp 18 B/P (MAP) 139/80 (99) Pulse Ox 97 O2 Delivery Room Air Capillary Refill : Height: 5'6.00" Weight: 171lbs. 0.0oz. 77.824337ir; 28.00 BMI Method:Stated General Appearance: WD/WN, no apparent distress Eyes: Bilateral Eye Normal Inspection, Bilateral Eye PERRL, Bilateral Eye EOMI Respiratory: no respiratory distress, no accessory muscle use, crackles (Left posterior base) Cardiovascular: no murmur, irregularly irregular (60's) Gastrointestinal: non tender, soft Extremities: normal range of motion Neurologic/Psychiatric: alert, normal mood/affect, oriented x 3 Skin: warm/dry, pallor Progress/Results/Core Measures Suspected Sepsis SIRS Temperature: Pulse: 74 Respiratory Rate: 18 Laboratory Tests 07/19/22 09:20: White Blood Count 4.8 Blood Pressure 139 /80 Mean: 99 Laboratory Tests 07/19/22 09:20: Creatinine 0.87, Platelet Count 199 Results/Orders Lab Results Laboratory Tests Test 07/19/22 09:00 07/19/22 09:20 07/19/22 09:25 Range/Units SARS-CoV-2 RNA (RT-PCR) Not Detected Not Detecte White Blood Count 4.8 4.3-11.0 10^3/uL Red Blood Count 4.58 3.80-5.11 10^6/uL Hemoglobin 10.6 L 11.5-16.0 g/dL Hematocrit 34 L 35-52 % Mean Corpuscular Volume 75 L 80-99 fL Mean Corpuscular Hemoglobin 23 L 25-34 pg Mean Corpuscular Hemoglobin Concent 31 L 32-36 g/dL Red Cell Distribution Width 17.2 H 10.0-14.5 % Platelet Count 199 130-400 10^3/uL Mean Platelet Volume 9.7 9.0-12.2 fL Immature Granulocyte % (Auto) 0 % Neutrophils (%) (Auto) 62 42-75 % Lymphocytes (%) (Auto) 20 12-44 % Monocytes (%) (Auto) 13 H 0-12 % Eosinophils (%) (Auto) 5 0-10 % Basophils (%) (Auto) 1 0-10 % Neutrophils # (Auto) 3.0 1.8-7.8 10^3/uL Lymphocytes # (Auto) 1.0 1.0-4.0 10^3/uL Monocytes # (Auto) 0.6 0.0-1.0 10^3/uL Eosinophils # (Auto) 0.2 0.0-0.3 10^3/uL Basophils # (Auto) 0.0 0.0-0.1 10^3/uL Immature Granulocyte # (Auto) 0.0 0.0-0.1 10^3/uL Sodium Level 140 135-145 MMOL/L Potassium Level 4.0 3.6-5.0 MMOL/L Chloride Level 110 H 98-107 MMOL/L Carbon Dioxide Level 21 21-32 MMOL/L Anion Gap 9 5-14 MMOL/L Blood Urea Nitrogen 15 7-18 MG/DL Creatinine 0.87 0.60-1.30 MG/DL Estimat Glomerular Filtration Rate 65 BUN/Creatinine Ratio 17 Glucose Level 83 70-105 MG/DL Calcium Level 8.9 8.5-10.1 MG/DL Urine Color YELLOW Urine Clarity SL CLOUDY Urine pH 6.5 5-9 Urine Specific [place] 1.020 1.016-1.022 Urine Protein NEGATIVE NEGATIVE Urine Glucose (UA) TRACE H NEGATIVE Urine Ketones NEGATIVE NEGATIVE Urine Nitrite NEGATIVE NEGATIVE Urine Bilirubin NEGATIVE NEGATIVE Urine Urobilinogen 2.0 < = 1.0 MG/DL Urine Leukocyte Esterase 1+ H NEGATIVE Urine RBC (Auto) TRACE-I H NEGATIVE Urine RBC 0-2 /HPF Urine WBC 2-5 /HPF Urine Squamous Epithelial Cells 0-2 /HPF Urine Crystals NONE /LPF Urine Bacteria LARGE H /HPF Urine Casts NONE /LPF Urine Mucus NEGATIVE /LPF Urine Culture Indicated YES My Orders Orders - CAROLINE BARON MD Ed Iv/Invasive Line Start (07/19/22 09:24) Cbc With Automated Diff (07/19/22 09:24) Basic Metabolic Panel (07/19/22 09:24) Ua Culture If Indicated (07/19/22 09:24) Chest 1 View, Ap/Pa Only (07/19/22 09:24) Ns Iv 1000 Ml (Sodium Chloride 0.9%) (07/19/22 09:24) Urine Culture (07/19/22 09:25) Acetaminophen Tablet/Caplet (Tylenol T (07/19/22 09:45) Covid 19 Inhouse Test (07/19/22 10:23) Isolation Central Supply Req (07/19/22 10:23) Medications Given in ED Current Medications Medications Dose Ordered Sig/Cora Route Start Time Stop Time Status Last Admin Dose Admin Acetaminophen 650 mg ONCE ONCE PO 07/19/22 09:45 07/19/22 09:46 DC 07/19/22 09:51 650 MG Vital Signs/I&O 07/19/22 07/19/22 08:54 11:09 Temp 36.7 Pulse 74 64 Resp 18 18 B/P (MAP) 139/80 (99) 114/60 Pulse Ox 97 98 O2 Delivery Room Air Capillary Refill : Blood Pressure Mean: 99 Progress Note : Time: 10:09 Progress Note Patient seen and evaluated by me, 87-year-old with persistent cough over the last week. Evaluation today includes physical exam, CBC, basic metabolic panel, urinalysis and single view chest x-ray. Pertinent physical exam, crackles in the left lower lung posteriorly. No increased work of breathing or respiratory distress. Normal room air saturations. Afebrile, not tachycardic. Normal blood pressure. Abdomen is soft, no rashes. Normal mentation. Differential diagnosis based on history and physical, pneumonia bacterial or viral, urinary tract infection, nonspecific viral infection. Labs reviewed, CBC is normal, basic metabolic panel is normal, UA has large bacteria and as she is symptomatic with increased urinary frequency will treat. Chest x-ray is unremarkable. Patient is treated with 1 L of normal saline here in the department. She has multiple medication allergies to include sulfa drugs, azithromycin, Keflex, penicillins, Levaquin and Macrobid and tetracycline. This makes antibiotic choices somewhat tricky. I think most reasonable choice would be ciprofloxacin 500 mg twice a day for 7 days. The patient states that she has taken that before with success but is a little apprehensive that maybe her body is "used to it" as she has had so many urinary tract infections. I have reassured her that if she has any mild rashes she can take some Benadryl. Also recommended [id number] Delsym for cough and she can continue her Tessalon. Return precautions provided. She is feeling better after the normal saline and is eager for discharge. I have also advised her to follow-up closely with Dr. Soni next week. Diagnostic Imaging Diagonstic Imaging: Xray Plain Films/CT/US/NM/MRI: chest Comments [facility], [place] NAME: GARFIELD MCKEON [facility] REC#: [id number] PT STATUS: REG ER : 1935 PHYSICIAN: CAROLINE BARON MD ADMIT DATE: 07/19/22/ER Draft Date of Exam:07/19/22 CHEST 1 VIEW, AP/PA ONLY EXAMINATION: Chest 1 view HISTORY: Cough COMPARISON: 05/14/2022 FINDINGS: The lungs are clear without edema or pneumonia. No pleural effusion or pneumothorax. Heart size is normal. Left subclavian pacemaker is present. IMPRESSION: 1. Clear lungs. Dictated on workstation # [id number] Dict: 07/19/22 0950 Trans: 07/19/22 0951 CVB [id number] Interpreted by: OCTAVIO THAPA MD Electronically signed by: Departure Impression Primary Impression: Urinary tract infection Qualified Codes: N30.01 - Acute cystitis with hematuria Additional Impression: Bronchitis Disposition: HOME, SELF-CARE Condition: Improved Departure-Patient Inst. Decision time for Depature: 10:20 Referrals: ESTHER SONI DO (PCP/Family) Primary Care Physician Patient Instructions: Bronchitis, Adult ED, Urinary Tract Infection, Adult ED Add. Discharge Instructions: Take the Cipro antibiotic 1 tablet twice a day for 7 days. Use [id number] Delsym for cough. Please follow packaging instructions. Tylenol as needed for headache, pain. You can take 2 extra strength tablets every 6 hours as needed. You can continue the Tessalon Perles while taking the Delsym. The combination may help you feel better quicker. Please call Dr. Soni's office this week for a follow-up appointment at the end of the week. Come back to the emergency department if you have any new, concerning or worsening complaints. Scripts Ciprofloxacin HCl (Ciprofloxacin HCl) 500 Mg Tablet 500 MG PO BID, #14 TAB Prov: CAROLINE BARON MD 07/19/22 Copy Copies To 1: ESTHER SONI KATHRYN M MD Jul 19, 2022 09:12
[2022-07-19] MEDS ORDERED: NS IV 1000 ML 1,000 ML IV STA (09:24)
[2022-07-19 09:33] LABS: BILIRUBIN,URINE NEGATIVE (NEGATIVE); CLARITY,URINE SL CLOUDY; COLOR,URINE YELLOW; GLUCOSE, URINE (UA) TRACE (NEGATIVE); KETONES,URINE NEGATIVE (NEGATIVE); LEUKOCYTE ESTERASE ,URINE 1+ (NEGATIVE); NITRITE,URINE NEGATIVE (NEGATIVE); PH,URINE 6.5 (5-9); PROTEIN,URINE NEGATIVE (NEGATIVE)
[2022-07-19 09:34] LABS: BASOPHILS % (AUTO) 1 % (0-10); EOSINOPHILS # (AUTO) 0.2 10^3/uL (0.0-0.3); EOSINOPHILS % (AUTO) 5 % (0-10); HEMATOCRIT 34 % (35-52); HEMOGLOBIN 10.6 g/dL (11.5-16.0); LYMPHOCYTES % (AUTO) 20 % (12-44); MEAN CORPUSCULAR HEMOGLOBIN 23 pg (25-34); MEAN CORPUSCULAR HGB CONC 31 g/dL (32-36); MEAN CORPUSCULAR VOLUME 75 fL (80-99); MEAN PLATELET VOLUME 9.7 fL (9.0-12.2); MONOCYTES # (AUTO) 0.6 10^3/uL (0.0-1.0); MONOCYTES % (AUTO) 13 % (0-12); NEUTROPHILS % (AUTO) 62 % (42-75); PLATELET COUNT 199 10^3/uL (130-400); WHITE BLOOD COUNT 4.8 10^3/uL (4.3-11.0)
[2022-07-19 09:42] LABS: BACTERIA,URINE LARGE /HPF; RBC,URINE 0-2 /HPF; SQUAMOUS EPITHELIAL CELL,UR 0-2 /HPF
[2022-07-19 09:43] LABS: CALCIUM 8.9 MG/DL (8.5-10.1)
[2022-07-19] MEDS ORDERED: ACETAMINOPHEN 325 MG TABLET PO ONE (09:45)
[2022-07-19 09:47] LABS: CREATININE SERUM 0.87 MG/DL (0.60-1.30)
--- NOTE | 2022-07-19 09:52 | Diagnostic Imaging Report ---
EXAMINATION: Chest 1 view HISTORY: Cough COMPARISON: 05/14/2022 FINDINGS: The lungs are clear without edema or pneumonia. No pleural effusion or pneumothorax. Heart size is normal. Left subclavian pacemaker is present. IMPRESSION: 1. Clear lungs. Dictated by: Dictated on workstation # [email or web address]
[2022-07-19] MEDS ORDERED: CIPR500T5 PO (10:22)
[2022-07-19 11:09] VITALS: BP 114/60
== END 2022-07-19 11:09 | disposition home or self-care (01) ==
LOC: EDUNIT# 08:45 → ER 08:47
DX: N39.0 Urinary tract infection, site not specified (principal); J45.909 Unspecified asthma, uncomplicated; Z88.1 Allergy status to other antibiotic agents; Z88.2 Allergy status to sulfonamides; Z88.0 Allergy status to penicillin; Z20.822 Contact with and (suspected) exposure to COVID-19
CPT/HCPCS: 36415; 71045; 80048; 81000; 85025; 87077; 87088; 87636

== ENCOUNTER → 2022-09-09 | Outpatient (CLI) | payer MEDICARE, MEDICAID ==
[~2022-09-09] MED LIST changes: -ENAL10TA16 PO
== END | disposition home or self-care (01) ==
LOC: PREOP 05:41
PROVIDERS: ATTEND Surgery
DX: Z01.818 Encounter for other preprocedural examination (principal)

== ENCOUNTER 2022-10-27 08:24 | Emergency (ER) | payer MEDICARE, MEDICAID ==
[~2022-10-27] VITALS: Ht 167.7 cm; Wt 77.0 kg
[~2022-10-27 08:24] MED LIST changes: -LACT10SO33 PO; +LACT10SO74 PO
[2022-10-27 08:42] LABS: BILIRUBIN,URINE NEGATIVE (NEGATIVE); CLARITY,URINE TURBID; COLOR,URINE YELLOW; GLUCOSE, URINE (UA) NEGATIVE (NEGATIVE); KETONES,URINE NEGATIVE (NEGATIVE); LEUKOCYTE ESTERASE ,URINE 3+ (NEGATIVE); NITRITE,URINE POSITIVE (NEGATIVE); PROTEIN,URINE NEGATIVE (NEGATIVE)
[2022-10-27 08:54] LABS: BACTERIA,URINE LARGE /HPF; RBC,URINE 0-2 /HPF; WBC,URINE 50-100 /HPF
[2022-10-27 09:10] LABS: BASOPHILS # (AUTO) 0.1 10^3/uL (0.0-0.1); BASOPHILS % (AUTO) 1 % (0-10); EOSINOPHILS # (AUTO) 0.3 10^3/uL (0.0-0.3); EOSINOPHILS % (AUTO) 4 % (0-10); HEMATOCRIT 42 % (35-52); HEMOGLOBIN 12.8 g/dL (11.5-16.0); LYMPHOCYTES # (AUTO) 2.1 10^3/uL (1.0-4.0); LYMPHOCYTES % (AUTO) 26 % (12-44); MEAN CORPUSCULAR HEMOGLOBIN 23 pg (25-34); MEAN CORPUSCULAR HGB CONC 31 g/dL (32-36); MEAN CORPUSCULAR VOLUME 76 fL (80-99); MEAN PLATELET VOLUME 9.4 fL (9.0-12.2); MONOCYTES # (AUTO) 0.6 10^3/uL (0.0-1.0); MONOCYTES % (AUTO) 7 % (0-12); NEUTROPHILS # (AUTO) 4.9 10^3/uL (1.8-7.8); NEUTROPHILS % (AUTO) 61 % (42-75); PLATELET COUNT 269 10^3/uL (130-400)
[2022-10-27 09:21] LABS: POTASSIUM 3.6 MMOL/L (3.6-5.0)
[2022-10-27 09:22] LABS: CALCIUM 9.8 MG/DL (8.5-10.1)
[2022-10-27 09:27] LABS: CREATININE SERUM 1.1 MG/DL (0.60-1.30)
[2022-10-27 09:29] LABS: MAGNESIUM 2.3 MG/DL (1.6-2.4)
[2022-10-27 09:51] LABS: FREE T4 (FREE THYROXINE) 1.01 NG/DL (0.70-1.48)
--- NOTE | 2022-10-27 11:05 | ED General ---
General Chief Complaint: - 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 Stated Complaint: UTI Nursing Triage Note: C/O WEAKNESS AND INABLILTY TO TOLERATE ANTIBIOTICS FOR HER KNOWN UTI DIAGNOSED BY HER REGULAR PHYSICIAN DR ESTHER SONI Source of Information: Patient Exam Limitations: No Limitations History of Present Illness Date Seen by Provider: Oct 27, 2022 Allergies and Home Medications Allergies Coded Allergies: levofloxacin (Unverified Allergy, Mild, RASH, 07/19/22) Penicillins (Verified Allergy, Unknown, 07/19/22) Shellfish (Verified Allergy, Unknown, 07/19/22) Sulfa (Sulfonamide Antibiotics) (Verified Allergy, Unknown, 07/19/22) azithromycin (Unverified Allergy, Unknown, ITCHING, 07/19/22) cephalexin (Verified Allergy, Unknown, 07/19/22) erythromycin base (Verified Allergy, Unknown, 07/19/22) furosemide (Verified Allergy, Unknown, 07/19/22) nitrofurantoin (Unverified Allergy, Unknown, ITCHING/"THICK TONGUE", 07/19/22) tetracycline (Verified Allergy, Unknown, 07/19/22) Uncoded Allergies: MACROD (Allergy, Mild, 10/27/22) TAPE (Allergy, Unknown, 07/26/07) Patient Home Medication List ALPRAZolam (Xanax Tablet) 0.25 Mg Tablet, 0.5-1 TAB PO Q8H PRN for ANXIETY, (Reported) Entered as Reported by: MAKENNA AGUILAR on 02/14/16 0920 Amiodarone HCl (Amiodarone HCl) 200 Mg Tablet, 100 MG PO DAILY, (Reported) Entered as Reported by: MAKENNA AGUILAR on 11/25/17 0926 Amlodipine Besylate (Amlodipine Besylate) 5 Mg Tablet, 5 MG PO DAILY, (Reported) Entered as Reported by: MAKENNA AGUILAR on 08/27/16 0833 Bimatoprost (Lumigan) 2.5 Ml Drops, 1 DROP OU HS, (Reported) Entered as Reported by: MAKENNA AGUILAR on 09/12/18 1033 Cefdinir (Cefdinir) 300 Mg Capsule, 300 MG PO BID Prescribed by: DEVI KO on 03/09/22 1154 Ciprofloxacin HCl (Ciprofloxacin HCl) 500 Mg Tablet, 500 MG PO BID Prescribed by: CAROLINE BARON on 07/19/22 1022 Cyanocobalamin (Cyanocobalamin Injection) 1,000 Mcg/Ml Inj, 1,000 MCG INJ MON THLY, (Reported) Entered as Reported by: MAKENNA AGUILAR on 02/14/16919 Fexofenadine HCl (Renetta Allergy) 180 Mg Tablet, 180 MG PO DAILY PRN for ALLERGIES, (Reported) Entered as Reported by: MAKENNA AGUILAR on 11/25/17925 Guaifenesin/Dextromethorphan (Coricidin Hbp Softgel) 1 Each Capsule, 1 CAP PO DAILY PRN for ALLERGIES, (Reported) Entered as Reported by: MAKENNA AGUILAR on 09/12/18 1033 Irbesartan (Irbesartan) 300 Mg Tablet, 300 MG PO DAILY, (Reported) Entered as Reported by: MAKENNA AGUILAR on 02/14/16919 Lactulose (Lactulose) 20 Gram/30 Ml Solution, 20 GM PO DAILY Prescribed by: KELLI ONTIVEROS on 11/20/21 1727 Levothyroxine Sodium (Levothyroxine Sodium) 50 Mcg Tablet, 50 MCG PO DAILY, (Reported) Entered as Reported by: MAKENNA AGUILAR on 02/14/16919 Omeprazole (Omeprazole) 40 Mg Capsule.dr, 40 MG PO HS, (Reported) Entered as Reported by: MAKENNA AGUILAR on 11/25/17925 Peg/Electrolytes (Golytely Solution) 236-22.74G Soln, 4,000 ML PO UD Prescribed by: DEVI KO on 11/28/21 1415 Potassium Chloride (Potassium Chloride) 10 Meq Tab.er.prt, 10 MEQ PO DAILY, (Reported) Entered as Reported by: MAKENNA AGUILAR on 11/25/17925 Sucralfate (Carafate) 1 Gm/10 Ml Oral.susp, 1 GM PO QID Prescribed by: DEVI KO on 05/05/21 0451 Temazepam (Temazepam) 15 Mg Capsule, 15 MG PO HS PRN for INSOMNIA, (Reported) Entered as Reported by: MAKENNA AGUILAR on 11/25/17925 Trimethoprim (Trimethoprim) 100 Mg Tablet, 100 MG PO HS, (Reported) Entered as Reported by: MAKENNA AGUILAR on 11/25/17925 Past Mlsftxq-Brggyj-Mrzigp Hx Patient Social History Tobacco Use?: No Use of E-Cig and/or Vaping dev: No Substance use?: No Alcohol Use?: No Immunizations Up To Date Tetanus Booster (TDap): Less than 5yrs PED Vaccines UTD: No Influenza Vaccine Up-to-Date: Yes; Up-to-Date First/Initial COVID19 Vaccinat: YES Second COVID19 Vaccination Kun: YES Third COVID19 Vaccination Date: Seasonal Allergies Seasonal Allergies: Yes Past Medical History Surgery/Hospitalization HX: PMH: AFIB, CHRONIC CONSTIPATION, HTN, NIDDM, GERD, HIGH CHOLESTEROL, HYPOTHYROIDISM, TREMORS. SX:RECTOSEAL, PACEMAKER Surgeries: Yes (LAP NIESSEN, ATRIAL CLIPPING) Abdominal, Appendectomy, Cardiac, Gallbladder, Hysterectomy, Pacemaker, Rectal, Thyroidectomy, Tonsillectomy Respiratory: Yes Asthma, Sleep Apnea Currently Using CPAP: Yes Currently Using BIPAP: No Cardiac: Yes (SINUS NODE DYSFUNCTION, ATRIAL CLIPPING) Atrial Fibrillation, Cardiomyopathy, Chronic Edema/Swelling, Coronary Artery Disease, Hypertension Neurological: Yes TIA 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 Disorders: No [employer]CH[employer] History: Hysterectomy Genitourinary: Yes Bladder Infection Gastrointestinal: Yes (dysphagia) Gastroesophageal Reflux, Gastrointestinal Bleed, Hemorrhoids, Irritable Bowel Musculoskeletal: Yes (OSTEOARTHRITIS, FX RIGHT LOWER LEG, DISLOCATED RIGHT SHOULDER) Osteoporosis, Arthritis, Fractures Endocrine: Yes (THYROIDECTOMY; DIET CONTROLLED DIABETES) Hypothyroidsim, Diabetes, Non-Insulin dep HEENT: Yes Glaucoma Hearing Impairment: Hard of Hearing Cancer: No Psychosocial: Yes Anxiety, Depression Integumentary: No Blood Disorders: Yes (ANEMIA) Adverse Reaction/Blood Tranf: No Family Medical History Family history: Hypertension 03 FATHER, Onset:40's - 50 09 BROTHER, Onset:40's - 50 History of drug abuse 03 FATHER, Onset:20's - 25 Stroke 03 FATHER, Onset:60 years & older No Pertinent Family Hx Physical Exam Vital Signs Vital Signs - First Documented 10/27/22 08:35 Temp 35.3 Pulse 65 Resp 20 B/P (MAP) 151/96 (114) Pulse Ox 99 O2 Delivery Room Air Capillary Refill : Less Than 3 Seconds Height, Weight, BMI Height: 5'6.00" Weight: 171lbs. 0.0oz. [id number]; 27.00 BMI Method:Stated Progress/Results/Core Measures Suspected Sepsis SIRS Temperature: Pulse: 65 Respiratory Rate: 20 Laboratory Tests 10/27/22 09:00: White Blood Count 8.0 Blood Pressure 151 /96 Mean: 114 Laboratory Tests 10/27/22 09:00: Creatinine 1.10, Platelet Count 269 Results/Orders Lab Results Laboratory Tests Test 10/27/22 08:35 10/27/22 09:00 Range/Units Urine Color YELLOW Urine Clarity TURBID Urine pH 6.0 5-9 Urine Specific [place] 1.020 1.016-1.022 Urine Protein NEGATIVE NEGATIVE Urine Glucose (UA) NEGATIVE NEGATIVE Urine Ketones NEGATIVE NEGATIVE Urine Nitrite POSITIVE H NEGATIVE Urine Bilirubin NEGATIVE NEGATIVE Urine Urobilinogen 1.0 < = 1.0 MG/DL Urine Leukocyte Esterase 3+ H NEGATIVE Urine RBC (Auto) 1+ H NEGATIVE Urine RBC 0-2 /HPF Urine WBC 50-100 H /HPF Urine Squamous Epithelial Cells 2-5 /HPF Urine Crystals NONE /LPF Urine Bacteria LARGE H /HPF Urine Casts NONE /LPF Urine Mucus NEGATIVE /LPF Urine Culture Indicated YES White Blood Count 8.0 4.3-11.0 10^3/uL Red Blood Count 5.49 H 3.80-5.11 10^6/uL Hemoglobin 12.8 11.5-16.0 g/dL Hematocrit 42 35-52 % Mean Corpuscular Volume 76 L 80-99 fL Mean Corpuscular Hemoglobin 23 L 25-34 pg Mean Corpuscular Hemoglobin Concent 31 L 32-36 g/dL Red Cell Distribution Width 19.7 H 10.0-14.5 % Platelet Count 269 130-400 10^3/uL Mean Platelet Volume 9.4 9.0-12.2 fL Immature Granulocyte % (Auto) 1 % Neutrophils (%) (Auto) 61 42-75 % Lymphocytes (%) (Auto) 26 12-44 % Monocytes (%) (Auto) 7 0-12 % Eosinophils (%) (Auto) 4 0-10 % Basophils (%) (Auto) 1 0-10 % Neutrophils # (Auto) 4.9 1.8-7.8 10^3/uL Lymphocytes # (Auto) 2.1 1.0-4.0 10^3/uL Monocytes # (Auto) 0.6 0.0-1.0 10^3/uL Eosinophils # (Auto) 0.3 0.0-0.3 10^3/uL Basophils # (Auto) 0.1 0.0-0.1 10^3/uL Immature Granulocyte # (Auto) 0.1 0.0-0.1 10^3/uL Sodium Level 139 135-145 MMOL/L Potassium Level 3.6 3.6-5.0 MMOL/L Chloride Level 108 H 98-107 MMOL/L Carbon Dioxide Level 21 21-32 MMOL/L Anion Gap 10 5-14 MMOL/L Blood Urea Nitrogen 18 7-18 MG/DL Creatinine 1.10 0.60-1.30 MG/DL Estimat Glomerular Filtration Rate 49 BUN/Creatinine Ratio 16 Glucose Level 134 H 70-105 MG/DL Calcium Level 9.8 8.5-10.1 MG/DL Magnesium Level 2.3 1.6-2.4 MG/DL Thyroid Stimulating Hormone (TSH) 2.37 0.35-4.94 UIU/ML Free Thyroxine 1.01 0.70-1.48 NG/DL My Orders Orders - DEVI BERGERON MD Ua Culture If Indicated (10/27/22 08:33) Urine Culture (10/27/22 08:35) Basic Metabolic Panel (10/27/22 08:54) Cbc With Automated Diff (10/27/22 08:54) Magnesium (10/27/22 08:54) Thyroid Stimulating Hormone (10/27/22 08:54) Free T4 (Free Thyroxine) (10/27/22 08:54) Ed Iv/Invasive Line Start (10/27/22 08:54) General/Regular (10/27/22 Lunch) Vital Signs/I&O 10/27/22 08:35 Temp 35.3 Pulse 65 Resp 20 B/P (MAP) 151/96 (114) Pulse Ox 99 O2 Delivery Room Air Capillary Refill : Less Than 3 Seconds Blood Pressure Mean: 114 Departure Impression Primary Impression: Urinary tract infection Qualified Codes: N39.0 - Urinary tract infection, site not specified Additional Impression: General weakness Disposition: 01 HOME, SELF-CARE Condition: Stable Departure-Patient Inst. Decision time for Depature: 11:00 Referrals: ESTHER SONI DO (PCP/Family) Primary Care Physician Patient Instructions: Urinary Tract Infection, Adult ED Add. Discharge Instructions: Drink plenty of clear liquids to stay well-hydrated and help flush out your urinary system. Take your cefdinir antibiotic as prescribed. Follow-up with Dr. Soni's office on or Wednesday to review urine culture results. Urine culture should be available by afternoon or Wednesday morning. Your antibiotic could be adjusted based on results. You are being prescribed cefdinir. This is a cephalosporin but in a different generation of cephalosporins than the cephalexin (Keflex) you are allergic to. Return to care if you have worsening symptoms despite following these instructions. All discharge instructions reviewed with patient and/or family. Voiced understanding. Scripts Cefdinir (Cefdinir) 300 Mg Capsule 300 MG PO BID, #14 CAP Prov: DEVI BERGERON MD 10/27/22 DEVI BERGERON MD Oct 27, 2022 11:05
[2022-10-27] MEDS ORDERED: CEFD300C3 PO (11:06)
[2022-10-27 11:18] VITALS: BP 102/85
== END 2022-10-27 11:20 | disposition home or self-care (01) ==
LOC: EDUNIT# 08:24 → ER 08:26
DX: N39.0 Urinary tract infection, site not specified (principal); G47.30 Sleep apnea, unspecified; Z88.0 Allergy status to penicillin; Z88.2 Allergy status to sulfonamides; Z99.89 Dependence on other enabling machines and devices
CPT/HCPCS: 36415; 80048; 81000; 83735; 84439; 84443; 85025; 87077; 87088; 87186

== ENCOUNTER → 2022-12-07 | Outpatient (CLI) | payer MEDICARE, MEDICAID ==
[~2022-12-07] VITALS: Ht 167 cm; Wt 76.0 kg
[~2022-12-07] MED LIST changes: +REGADENOSON 0.4 MG/5 ML SYR (LEXISCAN) IV ONE
[2022-12-07] MEDS: CATHETER FLUSH 10 ML SYR IVP PRN ×2 (07:59→09:34)
[2022-12-07 09:33] VITALS: BP 164/85
--- NOTE | 2022-12-07 11:40 | Cardiology Stress Test Report ---
Stress Test Report Date of Procedure/Referring: Date of Procedure: Dec 07, 2022 PCP Esther Soni DO Admitting Physician Admitting Physician: Attending Physician: Sotero Tamayo MD Indications: CP Baseline Heart Rate: 69 Baseline Blood Pressure: Blood Pressure Systolic: 164 Blood Pressure Diastolic: 85 Baseline Vitals Vital Signs Date Time Temp Pulse Resp B/P (MAP) Pulse Ox O2 Delivery O2 Flow Rate FiO2 12/07/22 09:33 65 16 164/85 (111) 94 Room Air Baseline EKG: Baseline EKG: NSR Summary After explaining the procedure to the patient, she signed a consent and then brought to the stress nuclear laboratory. Patient received 0.4 mg Lexiscan for stress test, ECG, heart rate and blood pressure were monitored continuously. Resting and stress dose of radio tracer were injected, imaging was acquired and reviewed in short axis, horizontal long axis and vertical long axis views. TID: 0.95 SSS: 10 SDS: 5 EF: 66 Patient tolerated Lexiscan well Reversible ischemia involving the inferior wall and inferolateral wall Normal left ventricular size, ejection fraction 66% Copy Copies To 1: ESTHER SONI BASHAR J MD Dec 07, 2022 11:40
== END ==
LOC: CARD 07:46
PROVIDERS: ATTEND Internal Medicine Cardiovascular Disease
DX: I10 Essential (primary) hypertension (principal); I25.10 Atherosclerotic heart disease of native coronary artery without angina pectoris
CPT/HCPCS: 78452; 93017

== ENCOUNTER → 2022-12-08 | Outpatient (CLI) | payer MEDICARE, MEDICAID ==
[~2022-12-08] MED LIST changes: -REGADENOSON 0.4 MG/5 ML SYR (LEXISCAN) IV ONE
== END ==
LOC: CARD 13:09
PROVIDERS: ATTEND Internal Medicine Cardiovascular Disease
DX: I10 Essential (primary) hypertension (principal); I25.10 Atherosclerotic heart disease of native coronary artery without angina pectoris
CPT/HCPCS: 93306

== ENCOUNTER 2022-12-23 06:56 | Day surgery (SDC) | payer MEDICARE, MEDICAID ==
[~2022-12-23] VITALS: Ht 167.6 cm; Wt 75.0 kg
[2022-12-23] VITALS (10 sets, daily range): BP systolic 99–142; BP diastolic 54–83
[2022-12-23] MEDS ORDERED: NS IV 1000 ML 1,000 ML IV SCH ×2 (07:00→08:45)
[2022-12-23] MEDS ORDERED: LIDOCAINE 1% INJ 20 ML VIAL ONE (07:00)
[2022-12-23] MEDS ORDERED: HEParin (CATH LAB) 2,000 ML IV ONE (07:00)
[2022-12-23] MEDS ORDERED: NS IV 1000 ML 1,000 ML ONE (07:00)
[2022-12-23 07:27] LABS: HEMATOCRIT 44 % (35-52); MEAN CORPUSCULAR HEMOGLOBIN 26 pg (25-34); MEAN CORPUSCULAR HGB CONC 32 g/dL (32-36); MEAN CORPUSCULAR VOLUME 84 fL (80-99); MEAN PLATELET VOLUME 9.3 fL (9.0-12.2); PLATELET COUNT 269 10^3/uL (130-400); WHITE BLOOD COUNT 8.7 10^3/uL (4.3-11.0)
[2022-12-23] MEDS ORDERED: VERAPAMIL 5 MG/2 ML (CALAN) VIAL IV ONE (07:37)
[2022-12-23] MEDS ORDERED: fentaNYL INJECTION 100 MCG/2 ML VIAL ONE (07:37)
[2022-12-23] MEDS ORDERED: MIDAZOLAM INJ 5 MG/5 ML VIAL ONE (07:37)
[2022-12-23] MEDS ORDERED: HEParin 1000 UNIT/ML (10ML VIAL) FOR BOLUS ONE (07:37)
[2022-12-23] MEDS ORDERED: NITRO DRIP 25000 MCG/D5W 250 ML IV ONE (07:38)
[2022-12-23 07:40] LABS: BACTERIA,URINE TRACE /HPF; BILIRUBIN,URINE NEGATIVE (NEGATIVE); CLARITY,URINE CLEAR; COLOR,URINE YELLOW; GLUCOSE, URINE (UA) NEGATIVE (NEGATIVE); KETONES,URINE NEGATIVE (NEGATIVE); LEUKOCYTE ESTERASE ,URINE NEGATIVE (NEGATIVE); NITRITE,URINE NEGATIVE (NEGATIVE); PROTEIN,URINE NEGATIVE (NEGATIVE)
[2022-12-23 07:42] LABS: PROTHROMBIN TIME PATIENT 13.3 SEC (12.2-14.7)
--- NOTE | 2022-12-23 07:43 | Diagnostic Imaging Report ---
EXAMINATION: Chest radiograph TECHNIQUE: Portable AP view of the chest obtained. HISTORY: Chest pain COMPARISON: Chest radiograph 07/19/2022. FINDINGS: Cardiomegaly. Left pectoral pacemaker. No focal consolidation or janette pulmonary edema. No pleural effusion or pneumothorax. No acute osseous findings. IMPRESSION: Cardiomegaly. No focal consolidation or janette pulmonary edema. Dictated by: Dictated on workstation # [id number]
[2022-12-23 07:49] LABS: ALBUMIN 3.9 GM/DL (3.2-4.5); CALCIUM 9.8 MG/DL (8.5-10.1); CREATININE SERUM 1.19 MG/DL (0.60-1.30); POTASSIUM 3.5 MMOL/L (3.6-5.0); TOTAL PROTEIN 7.2 GM/DL (6.4-8.2)
--- NOTE | 2022-12-23 07:53 | Cardiac Procedure Note-CS/ASA ---
Pre-Procedure Note Pre-Op Procedure Note Date of Available H&P: Dec 17, 2022 Date H&P Reviewed: Dec 23, 2022 Time H&P Reviewed: 07:53 History & Physical: H&P Reviewed, Patient Examed, No changes noted Pre-Operative Diagnosis: CAD Moderate Sedation PreProcedure Time 07:53 ASA Score 3 Airway Lungs Heart ASA score ASA 1: a normal healthy patient ASA 2: a patient with a mild systemic disease (mid diabetes, controlled hypertension, obesity ASA 3: a patient with a severe systemic disease that limits activity (angina, COPD, prior Myocardial infarction) ASA 4: a patient with an incapacitating disease that is a constant threat to life (CHF, renal failure) ASA 5: a moribund patient not expected to survive 24 hrs. (ruptured aneurysm) ASA 6: a declared brain- patient whose organs are being harvested. For emergent operations, add the letter E after the classification Mallampati Classification Grade 3 Sedation Plan Analgesia, Amnesia, Plan communicated to team members, Discussed options with patient/fam, Discussed risks with patient/fam The patient is an appropriate candidate to undergo the planned procedure, sedation, and anesthesia. The patient immediately re-assessed prior to indication. BEBETO HOLLINGSWORTH MD Dec 23, 2022 07:53
[2022-12-23] MEDS ORDERED: FEXO-14 PO (08:04)
[2022-12-23] MEDS ORDERED: ESTR4INS VG (08:04)
[2022-12-23] MEDS ORDERED: ACET-2267 PO (08:04)
[2022-12-23] MEDS ORDERED: DOCU100C37 PO (08:04)
[2022-12-23] MEDS ORDERED: FURO20TA4 PO (08:04)
[2022-12-23] MEDS ORDERED: CNC1KV IM (08:04)
[2022-12-23] MEDS ORDERED: NETA2.5D3 OP (08:04)
[2022-12-23] MEDS ORDERED: BACI1TAB24 PO (08:04)
[2022-12-23] MEDS ORDERED: FAMO20TA3 PO (08:04)
[2022-12-23] MEDS ORDERED: ONDA4TAB11 SL (08:04)
[2022-12-23] MEDS ORDERED: PANT40TA52 PO (08:04)
[2022-12-23] MEDS ORDERED: LEVO50CA4 PO (08:04)
[2022-12-23] MEDS ORDERED: ACET-11 PO (08:04)
[2022-12-23] MEDS ORDERED: NAPR-1084 PO (08:04)
[2022-12-23] MEDS ORDERED: AMLO-251 PO (08:04)
[2022-12-23] MEDS ORDERED: TRIM100T PO (08:07)
--- NOTE | 2022-12-23 08:38 | Discharge Inst-Post CATH ---
Discharge Inst-CATH/EP Problems Reviewed?: Yes Post Cardiac Cath/EP D/C Inst Follow Up/Plan Appointment with Dr. Tamayo's office in 2-4 weeks <b>CARDIAC CATH/EP PROCEDURE DISCHARGE INSTRUCTIONS</b> ACTIVITY * Go Home directly and rest. * Limit activity of the leg (or wrist if it was used) for 7 days including aerobics, swimming, jogging, bicycling, etc. * Restrict stair-climbing for 7 days if possible, if not, climb up with your non-cath leg, then bring together on the same step. * Avoid lifting, pushing, pulling or excessive movement of the affected extremity for 7 days. * Customary sexual activity may be resumed after 2 days-use caution not to use a position that strains or causes pain to the affected extremity. * No driving for 24 hours. * NO SMOKING. * Avoid straining for bowel movements for 7 days. * Gentle walking on level ground is allowed. * Returning to work will depend on the type of procedure and the results. Your doctor will discuss this with you. CALL YOUR DOCTOR FOR ANY OF THE FOLLOWING: *If bleeding from the puncture site occurs- Apply gentle pressure to site with clean cloth and call your doctor or EMS. * If a knot or lump forms under the skin, increases in size, or causes pain. * If bruising appears to be worsening or moving further down your leg instead of disappearing. * Temperature above 101 F. CARE OF YOUR GROIN INCISION; * Bruising or purple discoloration of the skin near the puncture site is common. * You may shower only, no bathtub bathing for 5 days. Be careful to avoid slipping as your leg may feel stiff. * If a closure device was used on your femoral artery, please see the attached guide regarding care of the device and your leg. * Leave dressing on FOR 24 hours. CARE OF YOUR WRIST INCISION; * Bruising or purple discoloration of the skin near the puncture site is common. * You may shower. * DO NOT submerge wrist. * Leave dressing on FOR 24 hours. BEBETO TAMAYO MD Dec 23, 2022 08:38
--- NOTE | 2022-12-23 08:44 | Cardiac Cath Report ---
Cardiac Cath Report Physician (s)/Mill Washer (s) Physician BEBETO HOLLINGSWORTH MD Pre-Procedure Diagnosis Pre-Procedure Diagnosis: CAD Post-Procedure Note Procedure Start Date: Dec 23, 2022 Name of Procedure: Left heart catheterization Findings/Procedure Note PROCEDURE NOTE: 87-year-old lady with history of diabetes mellitus, hypertension, paroxysmal atrial fibrillation, had an abnormal stress test, scheduled for cardiac catheterization possible PTCA. After explaining the procedure to the patient, all pros and cons were explained, all questions were answered. The patient signed the consent and then she was placed in the cardiac catheterization laboratory. Groin was prepped in SL fashion local anesthesia was used. Sheath placed in the right radial artery, [place] catheter was advanced and prolapsed to the left ventricular cavity, pr essure was measured no left ventriculogram was done, pullback LV to aorta was done, engage the left coronary system, I exchanged the catheter Racheal right catheter and engaged the right coronary system and angiogram was done. At the end of the procedure the sheath was removed. Vascular band was used FINDINGS: Hemodynamics LV 108/8, end-diastolic pressure of 8 Aorta 101/53 mean of 72 ANATOMY: Left Main has mild ectasia with calcification no obstructive disease Left Anterior Descending mild ectasia proximally with calcification in the proximal LAD, slow flow in the LAD due to small vessel disease nonobstructive disease Left Circumflex is moderate in size with no obstructive disease Right Coronary Artery is dominant artery with mild calcification, slow flow due to small vessel disease nonobstructive disease LV Gram was not done, pressure was measured CONCLUSION: Mild ectasia in the distal left main and proximal LAD with calcified LAD, small vessels disease with slow flow in the LAD and right coronary artery no nobstructive disease Normal left ventricular end-diastolic pressure DISCUSSION AND RECOMMENDATION: Abnormal stress test is probably due to small vessel disease, medical therapy is recommended no intervention is warranted Anesthesia Type: Conscious Sedation Estimated blood loss (mL): 10 ml Contrast Amount: 17 ml Total Radiation Dose: 309 mGy Post-Procedure Diagnosis Post-operative diagnosis: Coronary artery disease Paroxysmal atrial fibrillation Sinus node dysfunction Hypertension BEBETO HOLLINGSWORTH MD Dec 23, 2022 08:44
== END 2022-12-23 11:15 ==
LOC: CATH 06:56 → SDC 08:49 → CATH 11:15
PROVIDERS: ATTEND Internal Medicine Cardiovascular Disease
DX: I25.10 Atherosclerotic heart disease of native coronary artery without angina pectoris (principal); I48.0 Paroxysmal atrial fibrillation; I07.1 Rheumatic tricuspid insufficiency; I11.9 Hypertensive heart disease without heart failure; I49.5 Sick sinus syndrome; I49.8 Other specified cardiac arrhythmias; I65.29 Occlusion and stenosis of unspecified carotid artery; K21.9 Gastro-esophageal reflux disease without esophagitis; K44.9 Diaphragmatic hernia without obstruction or gangrene; R13.10 Dysphagia, unspecified; T45.515A Adverse effect of anticoagulants, initial encounter; G47.33 Obstructive sleep apnea (adult) (pediatric); J44.9 Chronic obstructive pulmonary disease, unspecified; M25.569 Pain in unspecified knee; E78.2 Mixed hyperlipidemia; Z86.73 Personal history of transient ischemic attack (TIA), and cerebral infarction without residual deficits; Z79.899 Other long term (current) drug therapy; Z99.81 Dependence on supplemental oxygen; Z90.49 Acquired absence of other specified parts of digestive tract; Z87.19 Personal history of other diseases of the digestive system
CPT/HCPCS: 36415; 71045; 80053; 81000; 85027; 85610; 85730; 87081; 93005; 93458

== ENCOUNTER 2023-01-03 10:19 | Emergency (ER) | payer MEDICARE, MEDICAID ==
[~2023-01-03 10:19] MED LIST changes: +ACET-11 PO; +ACET-2267 PO; +AMLO-251 PO; +BACI1TAB24 PO; +CNC1KV IM; +DOCU100C37 PO; +ESTR4INS VG; +FAMO20TA3 PO; +FEXO-14 PO; +LEVO50CA4 PO; +NAPR-1084 PO; +NETA2.5D3 OP
[2023-01-03 10:39] VITALS: BP 142/73
[2023-01-03] MEDS ORDERED: NS IV 500 ML 500 ML IV STA (10:52)
--- NOTE | 2023-01-03 10:55 | ED GI ---
General Chief Complaint: Abdominal/GI Problems Stated Complaint: NAUSEA/RECTAL BLEEDING/AB PAIN Nursing Triage Note: PT AMB TO [facility] WITH C/O ABD PAIN AND RECTAL BLEEDING X1.5 WEEKS. PT SAW PCP WEDNESDAY AND WAS TOLD THEY MIGHT BE HEMROIDS. PT ALSO STATES SHE HAS BEEN NAUSOUS Source of Information: Patient Exam Limitations: No Limitations History of Present Illness Date Seen by Provider: Jan 03, 2023 Time Seen by Provider: 10:44 Initial Comments 88-year-old female presents the emergency department today for bright red blood in her stools, nausea. She has had bright red blood in her stools for a couple of weeks. She was told by her primary care doctor that it may be from hemorrhoids. For the last couple of days she has been nauseated. She has had dry heaves without any vomiting. She states she had a hiatal hernia repair is unable to vomit. She was given an ODT Zofran without much relief. She denies any painful stools, dark tarry or bloody stools. She was previously on iron supplementation but stopped taking it as it "tore up my gut." She has no abdominal pain. No urinary symptoms. No shortness of breath, dizziness or lightheadedness. All other systems reviewed and negative except documented per HPI. Voice recognition software was used to help create this chart Allergies and Home Medications Allergies Coded Allergies: levofloxacin (Unverified Allergy, Mild, RASH, 07/19/22) Penicillins (Verified Allergy, Unknown, 07/19/22) Shellfish (Verified Allergy, Unknown, 07/19/22) Sulfa (Sulfonamide Antibiotics) (Verified Allergy, Unknown, 07/19/22) azithromycin (Unverified Allergy, Unknown, ITCHING, 07/19/22) cephalexin (Verified Allergy, Unknown, 07/19/22) erythromycin base (Verified Allergy, Unknown, 07/19/22) furosemide (Verified Allergy, Unknown, 07/19/22) nitrofurantoin (Unverified Allergy, Unknown, ITCHING/"THICK TONGUE", 07/19/22) tetracycline (Verified Allergy, Unknown, 07/19/22) Uncoded Allergies: MACROD (Allergy, Mild, 10/27/22) TAPE (Allergy, Unknown, 07/26/07) Patient Home Medication List Home Medication List Reviewed: Yes ALPRAZolam (Xanax Tablet) 0.25 Mg Tab, 0.25 TAB PO Q8H PRN for ANXIETY, (Reported) Entered as Reported by: MAKENNA AGUILAR on 02/14/16 0920 Acetaminophen (Tylenol Extra Strength) 500 Mg Tablet, 1,000 MG PO Q6H PRN for PAIN-MILD (1-4), (Reported) Entered as Reported by: BENJY DOBBS on 12/23/22803 Acetaminophen with Codeine (Acetaminophen-Cod #3 Tablet) 300 Mg-30 Mg Tablet, 1 EACH PO Q6H PRN for PAIN-MODERATE (5-7), (Reported) Entered as Reported by: BENJY DOBBS on 12/23/22803 Amiodarone HCl (Amiodarone HCl) 200 Mg Tablet, 100 MG PO DAILY, (Reported) Entered as Reported by: MAKENNA AGUILAR on 11/25/17 0926 Amlodipine Besylate (Amlodipine Besylate) 10 Mg Tablet, 10 MG PO DAILY, (Reported) Entered as Reported by: BENJY DOBBS on 12/23/22803 Bacillus Coagulans (Probiotic) 1 Billion Cell Tab.chew, 2 EACH PO DAILY, (Reported) Entered as Reported by: BENJY DOBBS on 12/23/22803 Cyanocobalamin (Cyanocobalamin Injection) 1,000 Mcg/Ml Inj, 1,000 MCG IM MONTHLY, (Reported) Entered as Reported by: BENJY DOBBS on 12/23/22803 Docusate Sodium (Docusate Sodium) 100 Mg Capsule, 100 MG PO DAILY PRN for CONSTIPATION-1ST LINE, (Reported) Entered as Reported by: BENJY DOBBS on 12/23/22803 Estradiol (Imvexxy) 4 Mcg Insert, 4 MCG VG WED,, (Reported) Entered as Reported by: BENJY DOBBS on 12/23/22803 Famotidine (Acid Motion And Time Study Teacher (FAMOTIDINE)) 20 Mg Tablet, 20 MG PO DAILY, (Reported) Entered as Reported by: BENJY DOBBS on 12/23/22803 Fexofenadine HCl (Renetta Allergy) 60 Mg Tablet, 60 MG PO DAILY PRN for ALLERGIES, (Reported) Entered as Reported by: BENJY DOBBS on 12/23/22803 Furosemide (Furosemide) 20 Mg Tablet, 20 MG PO DAILY, (Reported) Entered as Reported by: BENJY DOBBS on 12/23/22 08 Levothyroxine Sodium (Levothyroxine) 50 Mcg Capsule, 50 MCG PO DAILY, (Reported) Entered as Reported by: BENJY DOBBS on 12/23/22803 Naproxen (Naproxen) 375 Mg Tablet, 375 MG PO Q12H PRN for PAIN-MILD (1-4), (Reported) Entered as Reported by: BENJY DOBBS on 12/23/22803 Netarsudil Mesylat/Latanoprost (Rocklatan 0.02%-0.005% Eye Drp) 0.02 %-0.005 % Drops, 1 DROP OP HS, (Reported) Entered as Reported by: BENJY DOBBS on 12/23/22803 Ondansetron (Ondansetron Odt) 4 Mg Tab.rapdis, 4 MG SL Q6H PRN for NAUSEA/VOMITING-1ST LINE, (Reported) Entered as Reported by: BENJY DOBBS on 12/23/22803 Pantoprazole Sodium (Pantoprazole Sodium) 40 Mg Tablet.dr, 40 MG PO DAILY, (Reported) Entered as Reported by: BENJY DOBBS on 12/23/22803 Potassium Chloride (Potassium Chloride) 10 Meq Tab.er.prt, 10 MEQ PO DAILY, (Reported) Entered as Reported by: MAKENNA AGUILAR on 11/25/17 09 Trimethoprim (Trimethoprim) 100 Mg Tablet, 100 MG PO HS, (Reported) Entered as Reported by: BENJY DOBBS on 12/23/22 08 Review of Systems Review of Systems Constitutional: see HPI Past Uzqmdwz-Ogvnlb-Ehmpap Hx Patient Social History Tobacco Use?: No Use of E-Cig and/or Vaping dev: No Substance use?: No Alcohol Use?: No Pt feels they are or have been: No Immunizations Up To Date Tetanus Booster (TDap): Less than 5yrs PED Vaccines UTD: No First/Initial COVID19 Vaccinat: YES Second COVID19 Vaccination Kun: YES Third COVID19 Vaccination Date: YES Seasonal Allergies Seasonal Allergies: Yes Past Medical History Surgery/Hospitalization HX: PMH: AFIB, CHRONIC CONSTIPATION, HTN, NIDDM, GERD, HIGH CHOLESTEROL, HYPOTHYROIDISM, TREMORS. SX:RECTOSEAL, PACEMAKER, HEART CATH Surgeries: Yes (LAP NIESSEN, ATRIAL CLIPPING) Abdominal, Appendectomy, Cardiac, Gallbladder, Hysterectomy, Pacemaker, Rectal, Thyroidectomy, Tonsillectomy Respiratory: Yes Asthma, Sleep Apnea Currently Using CPAP: Yes Currently Using BIPAP: No Cardiac: Yes (SINUS NODE DYSFUNCTION, ATRIAL CLIPPING) Atrial Fibrillation, Cardiomyopathy, Chronic Edema/Swelling, Coronary Artery Disease, Hypertension Neurological: Yes TIA 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 Disorders: No INFORMATION CONSULTANT History: Hysterectomy Genitourinary: Yes Bladder Infection Gastrointestinal: Yes (dysphagia) Gastroesophageal Reflux, Gastrointestinal Bleed, Hemorrhoids, Irritable Bowel Musculoskeletal: Yes (OSTEOARTHRITIS, FX RIGHT LOWER LEG, DISLOCATED RIGHT SHOULDER) Osteoporosis, Arthritis, Fractures Endocrine: Yes (THYROIDECTOMY; DIET CONTROLLED DIABETES) Hypothyroidsim, Diabetes, Non-Insulin dep HEENT: Yes Glaucoma Hearing Impairment: Hard of Hearing Cancer: No Psychosocial: Yes Anxiety, Depression Integumentary: No Blood Disorders: Yes (ANEMIA) Adverse Reaction/Blood Tranf: No Family Medical History Family history: Hypertension 03 FATHER, Onset:40's - 50 09 BROTHER, Onset:40's - 50 History of drug abuse 03 FATHER, Onset:20's - 25 Stroke 03 FATHER, Onset:60 years & older No Pertinent Family Hx Physical Exam Vital Signs Vital Signs - First Documented 01/03/23 10:39 Temp 36.3 Pulse 77 Resp 14 B/P (MAP) 142/73 (96) Pulse Ox 97 O2 Delivery Room Air Capillary Refill : Height/Weight/BMI Height: 5'6.00" Weight: 171lbs. 0.0oz. [id number]; 26.70 BMI Method:Stated General Appearance: WD/WN, no apparent distress HEENT: normal ENT inspection, pharynx normal Neck: non-tender, supple Respiratory: chest non-tender, lungs clear, normal breath sounds, no respi ratory distress, no accessory muscle use Cardiovascular: regular rate, rhythm, no murmur Gastrointestinal: normal bowel sounds, non tender, soft Extremities: normal range of motion, normal inspection, normal capillary refill Neurologic/Psychiatric: alert, oriented x 3 Skin: normal color, warm/dry Progress/Results/Core Measures Results/Orders Lab Results Laboratory Tests Test 01/03/23 10:45 Range/Units White Blood Count 8.3 4.3-11.0 10^3/uL Red Blood Count 5.28 H 3.80-5.11 10^6/uL Hemoglobin 14.1 11.5-16.0 g/dL Hematocrit 45 35-52 % Mean Corpuscular Volume 85 80-99 fL Mean Corpuscular Hemoglobin 27 25-34 pg Mean Corpuscular Hemoglobin Concent 32 32-36 g/dL Red Cell Distribution Width 20.7 H 10.0-14.5 % Platelet Count 277 130-400 10^3/uL Mean Platelet Volume 9.1 9.0-12.2 fL Immature Granulocyte % (Auto) 1 % Neutrophils (%) (Auto) 53 42-75 % Lymphocytes (%) (Auto) 30 12-44 % Monocytes (%) (Auto) 10 0-12 % Eosinophils (%) (Auto) 5 0-10 % Basophils (%) (Auto) 1 0-10 % Neutrophils # (Auto) 4.4 1.8-7.8 10^3/uL Lymphocytes # (Auto) 2.5 1.0-4.0 10^3/uL Monocytes # (Auto) 0.8 0.0-1.0 10^3/uL Eosinophils # (Auto) 0.4 H 0.0-0.3 10^3/uL Basophils # (Auto) 0.1 0.0-0.1 10^3/uL Immature Granulocyte # (Auto) 0.1 0.0-0.1 10^3/uL Sodium Level 141 135-145 MMOL/L Potassium Level 3.9 3.6-5.0 MMOL/L Chloride Level 109 H 98-107 MMOL/L Carbon Dioxide Level 21 21-32 MMOL/L Anion Gap 11 5-14 MMOL/L Blood Urea Nitrogen 20 H 7-18 MG/DL Creatinine 1.23 0.60-1.30 MG/DL Estimat Glomerular Filtration Rate 43 BUN/Creatinine Ratio 16 Glucose Level 106 H 70-105 MG/DL Calcium Level 10.0 8.5-10.1 MG/DL My Orders Orders - DEANNA SALGADO DO Basic Metabolic Panel (01/03/23 10:52) Cbc With Automated Diff (01/03/23 10:52) Ondansetron Injection (Ondansetron Inj (01/03/23 11:00) Ns Iv 500 Ml (Ns Iv 500 Ml) (01/03/23 10:52) Medications Given in ED Current Medications Medications Dose Ordered Sig/Coar Route Start Time Stop Time Status Last Admin Dose Admin Ondansetron HCl 8 mg ONCE ONCE IVP 01/03/23 11:00 01/03/23 11:01 DC 01/03/23 11:05 8 MG Vital Signs/I&O 01/03/23 10:39 Temp 36.3 Pulse 77 Resp 14 B/P (MAP) 142/73 (96) Pulse Ox 97 O2 Delivery Room Air Blood Pressure Mean: 96 Departure Communication (Admissions) Patient is hemodynamically stable. There is no evidence for anemia. She has been bleeding for some time, bright red blood has a history of hemorrhoids. With that I think she stable for outpatient work-up. She is established with Dr. Acosta, has had multiple upper and lower endoscopies with him in the past. Advised to schedule an appointment for follow-up. She states understanding. She be discharged in stable condition. Her nausea is better after IV Zofran. Impression Primary Impression: Bright red blood per rectum Disposition: HOME, SELF-CARE Condition: Stable Departure-Patient Inst. Referrals: GAMALIEL ACOSTA WILLIAM J DO (PCP/Family) Primary Care Physician Patient Instructions: Bloody Stools, Adult (DC) Add. Discharge Instructions: Continue to use Zofran as needed for nausea. Increase your fluids at home and rest. Recommend she schedule an appointment with Dr. Acosta to schedule colonoscopy. Return to the emergency department for any severe bleeding, dizziness or lightheadedness. Follow-up with your primary doctor for any nonemergent needs. All discharge instructions reviewed with patient and/or family. Voiced understanding. DEANNA SALGADO DO Jan 03, 2023 10:55
[2023-01-03] MEDS ORDERED: ONDANSETRON INJECTION 4 MG/2 ML (SDV) IVP ONE (11:00)
[2023-01-03 11:03] LABS: BASOPHILS # (AUTO) 0.1 10^3/uL (0.0-0.1); BASOPHILS % (AUTO) 1 % (0-10); EOSINOPHILS # (AUTO) 0.4 10^3/uL (0.0-0.3); EOSINOPHILS % (AUTO) 5 % (0-10); HEMATOCRIT 45 % (35-52); HEMOGLOBIN 14.1 g/dL (11.5-16.0); LYMPHOCYTES # (AUTO) 2.5 10^3/uL (1.0-4.0); LYMPHOCYTES % (AUTO) 30 % (12-44); MEAN CORPUSCULAR HEMOGLOBIN 27 pg (25-34); MEAN CORPUSCULAR HGB CONC 32 g/dL (32-36); MEAN CORPUSCULAR VOLUME 85 fL (80-99); MEAN PLATELET VOLUME 9.1 fL (9.0-12.2); MONOCYTES # (AUTO) 0.8 10^3/uL (0.0-1.0); MONOCYTES % (AUTO) 10 % (0-12); NEUTROPHILS # (AUTO) 4.4 10^3/uL (1.8-7.8); NEUTROPHILS % (AUTO) 53 % (42-75); PLATELET COUNT 277 10^3/uL (130-400); WHITE BLOOD COUNT 8.3 10^3/uL (4.3-11.0)
[2023-01-03 11:07] LABS: POTASSIUM 3.9 MMOL/L (3.6-5.0)
[2023-01-03 11:13] LABS: CREATININE SERUM 1.23 MG/DL (0.60-1.30)
== END 2023-01-03 12:20 | disposition home or self-care (01) ==
LOC: EDUNIT# 10:19 → ER 10:21
DX: K62.5 Hemorrhage of anus and rectum (principal); G47.30 Sleep apnea, unspecified; Z99.89 Dependence on other enabling machines and devices
CPT/HCPCS: 36415; 80048; 85025